=== PATIENT | female | born 1965 | race Caucasian/White ===

== ENCOUNTER 2023-02-13 10:04 | Outpatient (RCR) | payer OTHER, SELFPAY | END 2023-02-27 14:00 | disposition home or self-care (01) | LOC: PT 10:04 | DX: S83.241A Other tear of medial meniscus, current injury, right knee, initial encounter (principal) | CPT/HCPCS: 97161 ==

== ENCOUNTER 2023-06-09 09:51 | Outpatient (RCR) | payer OTHER, SELFPAY | END 2023-07-10 13:19 | disposition home or self-care (01) | LOC: PT 09:51 | DX: S83.241D Other tear of medial meniscus, current injury, right knee, subsequent encounter (principal); R26.89 Other abnormalities of gait and mobility; R26.9 Unspecified abnormalities of gait and mobility | CPT/HCPCS: 97110; 97161 ==

== ENCOUNTER 2023-08-26 14:32 | Outpatient (OUT) | payer OTHER, SELFPAY ==
--- NOTE | 2023-08-26 | XR_ITS ---
The [address] [address] Patient Name: PRAFUL JUNIOR MRN: [id number] date: 1965 Sex: F Assigned Patient Location: [facility] Current Patient Location: Accession/Order Number: [id number] Exam Date: 08/26/2023 14:45 Report Date: 08/27/2023 23:57 At the request of: MARGARET CARDENAS Procedure: XR foot RT min 3V EXAM: XR foot RT min 3V HISTORY: The patient is a 58-year-old female with RIGHT FOOT PAIN COMPARISON: None. FINDINGS: 2 screws are seen across a healed osteotomy of the first metatarsal and 2 microscrews are seen across a healed osteotomy of the fifth metatarsal. There is no radiographic evidence of hardware loosening or failure. There is evidence of a nondisplaced fracture of the proximal metaphysis of the fourth toe proximal phalanx. I cannot determine from these views if this is an acute or ununited fracture. There is also a ununited transverse fracture of the distal tuft of the fourth toe distal phalanx. No other acute or ununited fractures are seen within the right foot. There is moderate narrowing of the first metatarsophalangeal joint. The widths of the other joints are maintained. XR/XR foot RT min 3V IMPRESSION: Fractures of the proximal and distal phalanges of the fourth toe. Electronically authenticated by: LUISA ADAME Date: 08/27/2023 23:57
== END 2023-08-26 14:33 | disposition home or self-care (01) ==
LOC: RAD 14:33
PROVIDERS: Visit Provider Podiatrist Foot & Ankle Surgery
DX: S92.911A Unspecified fracture of right toe(s), initial encounter for closed fracture (principal); M79.671 Pain in right foot
CPT/HCPCS: 73630

== ENCOUNTER 2023-10-07 13:22 | Outpatient (OUT) | payer OTHER, SELFPAY ==
--- NOTE | 2023-10-07 | XR_ITS ---
The [address] [address] Patient Name: PRAFUL JUNIOR MRN: [id number] date: 1965 Sex: F Assigned Patient Location: [facility] Current Patient Location: [facility] Accession/Order Number: [id number] Exam Date: 10/07/2023 13:52 Report Date: 10/07/2023 15:00 At the request of: MARGARET CARDENAS Procedure: XR foot RT min 3V PROCEDURE: XR foot RT min 3V COMPARISON: 08/26/2023 HISTORY: RIGHT FOOT PAIN FINDINGS: BONES:No acute fracture or dislocation. Stable osteotomy and screw placement of the first and fifth metatarsals. Shave osteotomy medial head of the first metatarsal. SOFT TISSUES:Focal radiopacity between the third and fourth digits possibly outside the patient EFFUSION:None visible. OTHER: Negative. XR/XR foot RT min 3V IMPRESSION: Stable postsurgical changes Electronically authenticated by: JALEEL EAST Date: 10/07/2023 15:00
--- OUTSIDE RECORDS SUMMARY | 2023-10-07 13:26 | XMS_ITS | CCD ---
Author Name Unknown Address [address] [place] [address] Organization [facility] Care Team Providers Care [employer] Name Role Phone Marianna Escamilla Unavailable Unavailable Evan Lopez Unavailable Unavailable Unavailable Unavailable Unavailable Eugene Osuna Unavailable Unavailable Evan Lopez Unavailable Unavailable Adriana Desai Unavailable Unavailable Evan Lopez Unavailable Unavailable Unavailable Unavailable Saroj Burnett MD Unavailable Unavailable Marianna Wood Unavailable Unavailab Evan Haji Unavailable Unavailable Unavailable Unavailable Unavailable Hebert Carolina Unavailable Kevan Hyman Unavailable [phone] [facility] Primary Care Provider [phone] DO Bridgette Pena Attending Provider [phone] DO Cristian Prasad Referring Provider Corey Moore Unavailable [facility] Primary Care Provider [phone] DO Bridgette Pena Attending Provider DO Cristian Prasad Referring Provider MD Flako Crane Attending Provider [facility] Primary Care Provider Dr. Eugene Osuna Attending Unav ailable Dr. Eugene Osuna Attending Unav ailable Self, Referral Attending Provider Unavailable MD Flako Crane Referring Provider [phone] DO Cristian Prasad Attending Provider [phone] MD Kevan Hyman Attending Provider Eugene Nicholson II Unavailable DO Roderick Trejo Attending Provider [phone] Ashly RUVALCABA, Anne Greene Attending Unavailable DO Cristian Prasad Attending Provider MD Kevan Hyman Attending Provider DO Roderick Trejo Attending Provider [phone] [facility] Primary Care Provider [phone] DO Brando Núñez Attending Provider [phone] ELADIO REESE Consulting Unavailable MARCEL ., DANE Admitting Unavailable MARCEL ., DANE Attending Unavailable MISC, DR ZAMUDIO Primary Care Unavailable SHAYY, ZAC Consulting Unavailable DERROW, SIMEON Consulting Unavailable MARCEL ., DANE Consulting Unavailable MISC, DR ZAMUDIO Admitting Unavailable MISC, DR ZAMUDIO Primary Care Unavailable MISC, DR ZAMUDIO Attending Unavailable MISC, DR ZAMUDIO Admitting Unavailable MISC, DR ZAMUDIO Attending Unavailable [facility] Primary Care Unavaila ble MARKER ., DR ESTEBAN Admitting Unavailable MARKER ., DR ESTEBAN Consulting Unavailable MARKER ., DR ESTEBAN Attending Unavailable [facility] Primary Care Unavaila ble YEH, BRIDGETTE Consulting Unavailable MARKER ., DR ESTEBAN Admitting Unavailable MARKER ., DR ESTEBAN Attending Unavailable MISC, DR ZAMUDIO Primary Care Unavailable RAHUL .JENNIFER Consulting Unavailable DO Terrence Doe Emergency Provider EUGENE Ferris Referring Unavaila ble OSUNA, EUGENE HARDWICK Attending Unavaila ble OSUNA, EUGENE HARDWICK Attending Unavaila ble OSUNAEUGENE ALTAMIRANO Referring Unavaila ble OSUNA, EUGENE HARDWICK Referring Unavaila ble OSUNA, EUGENE HARDWICK Attending Unavaila ble Bharat Carreon Unavailable SYLWIAALVINA CORDERO Admitting Unavailable SYLWIA, ALVINA E Attending Unavailable SYLWIA, ALVINA E Attending Unavailable SYLWIA, ALVINA E Attending Unavailable COOK, Servando P Referring Unavailable SYLWIA, ALVINA E Attending Unavailable SYLWIA, ALVINA E Attending Unavailable COOK, Servando P Referring Unavailable COOK, Srevando P Attending Unavailable COOK, Servando P Admitting Unavailable KILBANE, RINA Attending Unavailable Unavailable Primary Care Provider Unavailabl e KILBANE, RINA Referring Unavailable [facility] Primary Care Provider MD Flako Crane Attending Provider [phone] [facility], Services Primary Care Unavaila ble Wilton, Brando Admitting Unavailable Visci, Brando Attending Unavailable Visci, Brando Admitting Unavailable Visci, Brando Attending Unavailable [facility], Services Primary Care Unavaila ble Terrence Doe Admitting Unavailable Terrence Doe Attending Unavailable [facility], [facility] Primary Care Unavaila ble [facility], Services Primary Care Unavaila Flako Mcclain Admitting Unavailable Flako Crane Attending Unavailable Cristian Prasad Admitting Unavailable Cristian Prasad Attending Unavailable YenniKevan angel Admitting Unavaila ble Kevan Hyman Attending Unavaila ble [facility], Services Primary Care Unavaila ble Roderick Trejo Admitting Unavailab Roderick Johnson Attending Unavailab le Pcp, Not In System Primary Care Provider Unavail able Allergies Allergy Classification Reported Allergen(s) Allergy Type Date of Onset Reaction(s) Facility Acetaminophen / HYDROcodone (1 source) Acetaminophen / HYDROcodone; Translations: [Vicodin TABS] Drug Allergy -[facility] [place] [address] DO Work Phone: Antihistamines (1 source) hydrOXYzine; Translations: [Vistaril] Drug Allergy [place] [address] DO Work Phone: Cephalosporins (antibiotic) (1 source) Cephalexin; Translations: [Keflex] Drug Allergy [place] [address] DO Work Phone: hydroCHLOROthiazide (1 source) hydroCHLOROthiazi de; Translations: [hydroCHLOROthiaz mandie TABS] Drug Allergy [facility] 130 DO Work Phone: Opioid Agonists (1 source) Morphine; Translations: [morphine] Drug Allergy [place] [address] DO Work Phone: Orphenadrine (1 source) Orphenadrine; Translations: [Norflex] Drug Allergy [place] [address] DO Work Phone: Penicillins (antibiotic) (1 source) Penicillins; Translations: [Penicillins] Drug Allergy [facility] 130 DO Work Phone: Phenazopyridine (1 source) Phenazopyridine; Translations: [Pyridium] Drug Allergy -Orthopaedic [facility] 130 DO Work Phone: Sulfonamides (antibiotic) (1 source) Sulfamethoxazole; Translations: [sulfa] [facility] 130 DO Work Phone: (20 sources) Acetaminophen / HYDROcodone; Translations: [Vicodin TABS] Drug Allergy 017 Unknown, Nausea, Vomiting -Orthopaedic [facility] Work Phone: (20 sources) Cephalexin; Translations: [Keflex] Drug Allergy [facility] Repository (20 sources) hydroCHLOROthiazi de; Translations: [hydroCHLOROthiaz mandie TABS] Drug Allergy 016 Hives, Rash [facility] Work Phone: (20 sources) hydrOXYzine; Translations: [Vistaril] Drug Allergy [facility] Repository (20 sources) Morphine; Translations: [morphine] Drug Allergy 016 [facility] (20 sources) Orphenadrine; Translations: [Norflex] Drug Allergy Unknown [facility] Repository (20 sources) Penicillins; Translations: [Penicillins] Allergy to drug (finding) [facility] (20 sources) Phenazopyridine; Translations: [Pyridium] Drug Allergy [facility] (20 sources) Sulfonamides (Antibiotic); Translations: [sulfa] Allergy to drug (finding) [facility] Work Phone: (20 sources) Acetaminophen / HYDROcodone; Translations: [Vicodin] Drug Allergy 016 Unknown [facility] Repository (20 sources) hydrOXYzine Drug Allergy Unknown, [facility] (20 sources) lurasidone; Translations: [LURASIDONE] Drug Allergy Seizure, muscle cramps [facility] (20 sources) Penicillin; Translations: [penicillin] Drug Allergy Rash [facility] Repository (20 sources) Phenazopyridine; Translations: [PHENAZOPYRIDINE] Drug Allergy [facility] (20 sources) Sulfonamides (Antibiotic); Translations: [sulfa drugs] Propensity to adverse reactions Unknown [facility] Repository (14 sources) Cephalexin; Translations: [cephalexin] Drug Allergy [facility] (14 sources) hydroCHLOROthiazi de; Translations: [hydroCHLOROthiaz mandie] Drug Allergy [facility] (9 sources) HYDROcodone; Translations: [hydrocodone] Drug Allergy Vomiting [facility] (13 sources) Orphenadrine; Translations: [orphenadrine] Drug Allergy [facility] (13 sources) Sulfonamides (Antibiotic); Translations: [SULFA (SULFONAMIDE ANTIBIOTICS)] Allergy to substance [facility] (3 sources) lurasidone; Translations: [Latuda] Drug Allergy [facility] Repository (1 source) Phenoperidine; Translations: [phenoperidine] Drug Allergy [facility] Repository (2 sources) pyridimal; Translations: [pyridimal] Propensity to adverse reactions to drug (disorder) Headache [facility] Repository (1 source) Penicillins Drug allergy (disorder) [facility] Repository (1 source) Sulfonamides (Antibiotic) Drug allergy (disorder) [facility] Repository (15 sources) dupilumab Drug Allergy rash, Other (See Comments) [facility] (12 sources) Substance with sulfonamide structure and antibacterial mechanism of action (substance) Drug allergy Unknown [facility] Other (2 sources) Acetaminophen / HYDROcodone; Translations: [HYDROCODONE-ACET AMINOPHEN] Drug Allergy [facility] 3 Repository (3 sources) hydrOXYzine; Translations: [HYDROXYZINE PAMOATE] Drug Allergy Hives, Rash [facility] 3 Repository (3 sources) HYDROCODONE-GUAIF ENESIN; Translations: [HYDROCODONE-GUAI FENESIN] Propensity to adverse reactions to drug (disorder) Headache, Nausea/vomiti ng [facility] 3 Repository (1 source) Penicillins Drug Allergy [facility] Work Phone: (1 source) hydrOXYzine Drug Allergy [facility] Repository (1 source) lurasidone Drug Allergy [facility] Repository (1 source) Penicillins Drug allergy (disorder) [facility] Repository (1 source) Phenazopyridine Drug Allergy 023 [facility] Repository (1 source) hydrOXYzine Drug Allergy 017 [facility] (1 source) Orphenadrine Drug Allergy 021 [facility] (1 source) penicillAMINE Drug Allergy 023 [facility] (1 source) Phenoperidine Drug Allergy 016 [facility] Medications Current Medications Medication Drug Class(es) Dates Sig (Normalized) Sig (Original) acetaminophen 500 mg oral tablet (20 sources) Start: 06-08-2023 acetaminophen (Tylenol) 500 mg tablet Take 2 tablets (1,000 mg) by mouth if needed. EVERY 6 TO 8 HOURS 0 06/08/2023 Active Start: 09-10-2022 take 2 tablets by mo ut every eight hours as needed Acetaminophen 500 MG 2 tablet as needed Orally every 8 hrs for 30 days Aug, Active Start: 03-01-2021 take 650 mg by mouth every four hours Acetaminophen Active 650 MG PO Q4H 0 February 28, 2021 11:00pm acetaminophen 325 mg / oxyCODONE hydrochloride 5 mg oral tablet (20 sources) Opioid Agonist Start: 12-31-2022 take 1-2 tablets by mouth every six hours as needed for pain Oxycodone-Acetaminophen (Percocet) 5-325 mg tablet Active 1 TAB PO Q6H 12 3 December 31, 2022 May take 1-2 tabs q 6 hours prn pain Start: 07-05-2020 End: 03-01-2021 take 1 tablet by mouth every six hours Oxycodone-Acetaminophen (Percocet) 5-325 mg tablet Discontinued 1 TAB PO Q6H 4 July 05, 2020 March 01, 2021 1:00pm Start: 06-15-2019 End: 03-08-2020 take 1 tablet by mouth every six hours Oxycodone-Acetaminophen (Percocet) 5-325 mg tablet Discontinued 1 TAB PO Q6H 10 September 24, 2019 March 08, 2020 1:58pm Start: 03-10-2019 End: 05-15-2019 take 1 tablet by mouth every four to six hours Oxycodone-Acetaminophen (Percocet) 5-325 mg tablet Discontinued 1 TAB PO EVERY 4-6 HOURS 6 March 24, 2019 May 15, 2019 1:46pm Start: 08-26-2017 End: 03-10-2019 take 1 tablet by mouth once Oxycodone-Acetaminophen (Percocet) 5-325 mg tablet Discontinued 1 TAB PO Once August 26, 2017 12:00am March 10, 2019 1:56pm [id number] 200 actuat albuterol 0.09 mg/actuat metered dose inhaler (20 sources) beta2-Adrenergic Agonist Start: 12-17-2022 take 1 puff(s) by inhalation every four hours Albuterol Sulfate (Ventolin Hfa) 90 mcg/actuation HFA aerosol inhaler Active 2 PUFF INHALATION Q4H December 16, 2022 11:00pm Start: 06-08-2020 End: 12-17-2022 take 2 puff(s) by mouth every four hours as needed Albuterol Sulfate Discontinued 2 PUFF INHALATION Q4H June 07, 2020 11:00pm December 17, 2022 9:56am TAKE 2 PUFFS BY MOUTH EVERY 4 HOURS NEEDED Start: 07-20-2018 take 1-2 puff(s) by inhalation every four to six hours as needed Ventolin HFA 108 (90 Base) MCG/ACT Inhalation Aerosol Solution INHALE 1 TO 2 PUFFS EVERY 4 TO 6 HOURS NEEDED. Quantity: 1 Refills: 11 Ordered: 20-Jul-2018 DO Start : 20-Jul-2018 Active Start: 07-20-2018 take 1-2 puff(s) by inhalation every four to six hours as needed Ventolin HFA 108 (90 Base) MCG/ACT Inhalation Aerosol Solution INHALE 1 TO 2 PUFFS EVERY 4 TO 6 HOURS NEEDED. Quantity: 1 Refills: 11 Start : 20-Jul-2018 Active 18 GM Inhaler Start: 07-20-2018 take 1-2 puff(s) by inhalation every four to six hours as needed Ventolin HFA 108 (90 Base) MCG/ACT Inhalation Aerosol Solution INHALE 1 TO 2 PUFFS EVERY 4 TO 6 HOURS NEEDED. Quantity: 1 Refills: 11 Start : 20-Jul-2018 Active 18 GM Inhaler Start: 08-26-2017 End: 06-08-2020 Albuterol Sulfate Discontinu ed 2 INH INHALATION Q4H August 26, 2017 12:00am June 08, 2020 11:56am Start: 08-26-2017 End: 06-08-2020 Albuterol Sulfate Discontinu ed 2 INH INHALATION Q4H August 26, 2017 1:00am June 08, 2020 12:56pm take 1 puff(s) by in halation every four hours as needed Ventolin HFA 108 (90 Base) MCG/ACT 1 puff as needed Inhalation every 4 hrs as needed Active take 2 puff(s) by in halation every four hours as needed for wheezing albuterol (PROVENTIL HFA;VENTOLIN HFA) 90 mcg/actuation inhaler Inhale 2 puffs every 4 (four) hours as needed for wheezing or shortness of breath. 0 Active take 2 puff(s) by in halation every four hours Ventolin HFA 90 mcg/actuation inhaler Inhale 2 puffs every 4 hours if needed. 0 Active take 2 puff(s) by in halation every four hours as needed Albuterol Sulfate HFA 108 (90 Base) MCG/ACT INHALE 2 PUFFS NEEDED EVERY 4 HOURS Inhalation Active take 2 puff(s) by in halation every four hours as needed Albuterol Sulfate HFA 108 (90 Base) MCG/ACT INHALE 2 PUFFS NEEDED EVERY 4 HOURS Inhalation Active alendronic acid 70 mg oral tablet (20 sources) Bisphosphonate Start: 07-20-2018 take 1 tablet by mouth every week alendronate (FOSAMAX) 70 mg tablet Take 1 tablet (70 mg total) by mouth once a week. 3 08/01/2018 Active Start: 07-20-2018 alendronate (F osamax) 70 mg tablet Take 1 tablet (70 mg) by mouth every 7 days. 0 07/20/2018 Active aluminum hydroxide 50.8 mg/ml / magnesium carbonate 47.5 mg/ml oral suspension (7 sources) Start: 06-05-2023 take 10 mL by mouth once daily at bedtime Heartburn Relief 254-237.5 mg/5 mL suspension Take 10 mL by mouth once daily at bedtime. 0 06/05/2023 Active Start: 05-04-2023 take 10 mL by mouth at bedtime Gaviscon Extra Strength 254- 237.5 MG/5ML 10 ml Orally at bedtime for 30 days Apr, Active amitriptyline hydrochloride 75 mg oral tablet (20 sources) Tricyclic Antidepressant Start: 03-05-2023 take 1 tablet by mouth once daily at bedtime amitriptyline (ELAVIL) 75 mg tablet TAKE 1 TABLET BY MOUTH EVERY DAY AT BEDTIME FOR 30 DAYS 0 04/28/2023 Active Start: 11-11-2021 End: 08-29-2022 take 50 mg by mouth once daily Amitriptyline Discontin ued 50 MG PO Daily November 11, 2021 12:00am August 29, 2022 8:48am Start: 10-28-2019 End: 03-01-2021 take 50 mg by mouth once daily at bedtime Amitriptyline Discontinued 50 MG PO Daily at bedtime October 28, 2019 12:00am March 01, 2021 1:00pm {1 (ascorbic acid 7540 MG / polyethylene glycol 3350 63594 MG / potassium chloride 1200 MG / sodium ascorbate 41806 MG / sodium chloride 3200 MG Powder for Oral Solution) / 1 (polyethylene glycol 3350 273890 MG / potassium chloride 1000 MG / sodium chloride 2000 MG / sodium sulfate 9000 MG Powder for Oral Solution) } Pack [Plenvu] (4 sources) Osmotic Laxative, Vitamin C Start: 10-28-2021 Plenvu 140 GM dose 1 pouch a t 4pm, dose 2 pouch A & B at 11pm Orally BID for 1 days [id number] Oct, Active atorvastatin 40 mg oral tablet (20 sources) HMG-CoA Reductase Inhibitor Start: 11-08-2020 take 1 tablet by mouth in the morning atorvastatin (LIPITOR) 40 mg tablet Take 1 tablet (40 mg total) by mouth in the morning. 0 06/19/2021 Active Start: 08-26-2017 End: 03-10-2019 take 40 mg by mouth once daily Atorvastatin Discontinu ed 40 MG PO Daily August 26, 2017 12:00am March 10, 2019 1:54pm brexpiprazole 0.5 mg oral tablet (20 sources) Atypical Antipsychotic Start: 06-19-2023 Rexulti 3 mg tablet Take 3 mg by mouth. 0 06/19/2023 Active Start: 12-17-2022 Rexulti 0.5 mg tablet Take 1 tablet (0.5 mg) by mouth. 0 06/19/2023 Active Start: 01-14-2022 take 1 tablet by adriana th once daily Brexpiprazole (Rexulti) 2 mg tablet Active 3 MG PO Daily August 29, 2022 12:00am Start: 07-25-2021 take 1.5 tablets by mouth in the morning REXULTI 2 mg tablet Take 1.5 tablets (3 mg total) by mouth in the morning. 0 07/25/2021 Active take 1 tablet by adriana th every twenty-four hours Rexulti 0.5 MG 1 tablet Orally Once a day 3mg in the am .05 as needed Active Ca-D3-mag cy-kbcj-nun-nancy-bor (Calcium 600-D3 Plus, mag-zinc,) 600 mg calcium- 20 mcg-50 mg tablet (1 source) Start: 07-20-2018 take 1 tablet by mouth once daily Ca-D3-mag sn-vhyx-knx-nancy-bor (Calcium 600-D3 Plus, mag-zinc,) 600 mg calcium- 20 mcg-50 mg tablet Take 1 tablet by mouth once daily. 0 07/20/2018 Active Calcium (8 sources) Phosphate Binder, Calcium Calcium Active calcium citrate 1500 mg / cholecalciferol 200 unt oral tablet (5 sources) Vitamin D Start: 06-19-2023 calcium citrat e-vitamin D3 (Citracal+D) 315 mg-5 mcg (200 unit) tablet Take by mouth. 0 06/19/2023 Active Start: 12-17-2022 take 1 tablet by adriana th twice daily Calcium Citrate-Vitamin D3 (Calcium Citrate + D) 315 mg-5 mcg (200 unit) tablet Active 1 TAB PO Twice daily December 16, 2022 11:00pm Start: 10-21-2021 Calcium Citrat e-Vitamin D 315-200 MG-UNIT Oral Tablet Quantity: 60 Refills: 0 Ordered: 08-Feb-2022 DO Start : 21-Oct-2021 Complete carBAMazepine 200 mg oral tablet (20 sources) Mood Stabilizer Start: 12-17-2022 take 100 mg by mouth twice daily Carbamazepine Active 100 MG PO Twice daily December 16, 2022 11:00pm Start: 11-12-2022 carBAMazepine (TEGretol) 100 mg chewable tablet Chew 1 tablet (100 mg) 2 times a day. 0 11/12/2022 Active take 1 tablet by adriana th every twelve hours carBAMazepine ER 100 MG 1 tablet Orally Twice a day Active carBAMazepine (T EGretol) 100 mg chewable tablet every 12 (twelve) hours. 0 Active cetirizine hydrochloride 10 mg oral tablet (20 sources) Histamine-1 Receptor Antagonist Start: 12-17-2022 take 1 tablet by mouth twice daily Cetirizine (Zyrtec) 10 mg Tablet Active 10 MG PO Twice daily December 16, 2022 11:00pm Start: 03-10-2019 End: 08-29-2022 take 1 capsule by mouth once daily Cetirizine (Zyrtec) 10 mg Capsule Discontinued 10 MG PO Daily May 22, 2019 11:00pm August 29, 2022 8:49am take 1 tablet by adriana every twenty-four hours ZyrTEC Allergy 10 MG 1 tablet Orally Once a day Active chondroitin sulfates 400 mg / glucosamine hydrochloride 500 mg oral capsule (20 sources) Start: 07-20-2018 take 1 capsule by mouth twice daily glucosamine-chondroitin 500-400 mg capsule Take 1 capsule by mouth 2 times a day. 0 07/20/2018 Active Start: 07-20-2018 take 1 capsule by mo [facility] twice daily Glucosamine-Chondroitin 500-400 MG Oral Capsule Take 1 capsule twice daily Quantity: 0 Refills: 0 Ordered: 19-Apr-2020 DO Start : 20-Jul-2018 Active Start: 07-20-2018 take 1 capsule by mo [facility] twice daily Glucosamine-Chondroitin 500-400 MG Oral Capsule Take 1 capsule twice daily Quantity: 0 Refills: 0 Ordered: 19-Apr-2020 DO Start : 20-Jul-2018 Active Start: 07-20-2018 take 1 capsule by mo [facility] once daily Glucosamine-Chondroitin 500-400 MG Oral Capsule take 1 cap daily Refills: 0 Start : 20-Jul-2018 Active clindamycin 300 mg oral capsule (19 sources) Lincosamide Antibacterial Start: 12-31-2022 take 300 mg by mouth every six hours Clindamycin Hcl Active 300 MG PO Q6H 28 December 30, 2022 11:00pm Start: 12-31-2022 End: 12-31-2022 take 150 mg by mouth every six hours Clindamycin Hcl Discontinued 150 MG PO Every 6 hours December 30, 2022 11:00pm December 31, 2022 8:54am Start: 10-29-2020 take 2 capsules by [facility] every hour Clindamycin HCl - 300 MG Oral Capsule TAKE 2 CAPSULES 1 HOUR PRIOR TO DENTAL APPOINTMENT. Quantity: 2 Refills: 0 Ordered: 29-May-2021 Eugene Osuna MD Start : 29-May-2021 Active Start: 05-15-2019 End: 05-23-2019 take 150 mg by mouth every eight hours Clindamycin Hcl Discontinued 150 MG PO Q8H 03 04May 14, 2019 11:00pm May 23, 2019 10:49am clobetasol propionate 0.5 mg/ml topical cream (9 sources) Corticosteroid Start: 04-21-2023 clobetasol (Te movate) 0.05 % cream Apply 1 Application topically if needed. APPLY TO AFFECTED AREAS ON ARMS TWICE DAILY FOR 3 WEEKS. TAKE OFF 1 WEEK THEN REPEAT NEEDED FOR FLARES. 0 04/21/2023 Active Start: 05-15-2019 End: 05-23-2019 Clobetasol Discontinued 2018 11:00pm May 23, 2019 10:52am diclofenac sodium 0.01 mg/mg topical gel (20 sources) Nonsteroidal Anti-inflammatory Drug Start: 06-05-2023 Voltareross Arthriti s Pain 1 % gel gel Apply 1 Application topically 3 times a day. 0 06/05/2023 Active Start: 03-10-2019 End: 06-08-2020 take 75 mg by mouth twice daily Diclofenac Potassium Discontinued 75 MG PO Twice daily March 09, 2019 11:00pm June 08, 2020 11:59am Start: 11-19-2017 take 1 tablet by adriana in the morning, then take 1 tablet by mouth at bedtime diclofenac (VOLTAREN) 75 mg EC tablet Take 1 tablet (75 mg total) by mouth in the morning and 1 tablet (75 mg total) before bedtime. 60 tablet 3 11/06/2022 Active Diclofenac Activ e dicyclomine hydrochloride 10 mg oral capsule (20 sources) Anticholinergic Start: 10-25-2021 Dicyclomine HC l - 10 MG Oral Capsule Quantity: 90 Refills: 0 Ordered: 06-Feb-2022 DO Start : 25-Oct-2021 Complete Start: 10-20-2021 take 1 capsule by mo [facility] every eight hours Dicyclomine HCl 10 MG 1 CAPSULE Orally Three times a day for 90 days Oct, Active take 0.5 tablet by [facility] three times daily dicyclomine (BENTYL) 20 mg tablet Take 0.5 tablets (10 mg total) by mouth 3 (three) times a day. 0 Active diphenhydrAMINE hydrochloride 25 mg oral tablet (20 sources) Histamine-1 Receptor Antagonist Start: 05-20-2023 diphenhydrAMINE (Sominex) 25 mg tablet Take 1-2 tablets (25-50 mg) by mouth as needed at bedtime for itching. 0 05/20/2023 Active Start: 12-17-2022 Diphenhydramin e Hcl (Banophen) 25 mg capsule Active 25 - 50 MG PO Daily at bedtime December 16, 2022 11:00pm take 1 capsule by mo [facility] every six hours as needed diphenhydrAMINE (BENADRYL) 25 mg capsule Take 1 capsule (25 mg total) by mouth every 6 (six) hours as needed for itching. 0 Active Banophen Active docusate sodium 100 mg oral capsule (1 source) Start: 05-29-2023 take 1 capsule by mouth twice daily as needed for constipation docusate sodium (Colace) 100 mg capsule Take 1 capsule (100 mg) by mouth 2 times a day as needed for constipation. 0 05/29/2023 Active 0.5 ml dulaglutide 1.5 mg/ml auto-injector (19 sources) GLP-1 Receptor Agonist Start: 03-23-2023 inject 0.75 mg by subcutaneous injection every week Trulicity 0.75 mg/0.5 mL pen injector Inject 0.75 mg under the skin 1 (one) time per week. 0 03/23/2023 Active Trulicity 3 MG/0 .5ML as directed Subcutaneous ONCE A WEEK 4.5 mg Active Trulicity 3 MG/0 .5ML as directed Subcutaneous ONCE A WEEK Active Trulicity Active dulaglutide 4.5 mg/0.5 mL pen injector (1 source) Start: 12-31-2022 inject 4.5 mg by subcutaneous injection every week dulaglutide 4.5 mg/0.5 mL pen injector Inject 4.5 mg under the skin once a week. 0 12/31/2022 Active 2 ml dupilumab 150 mg/ml auto-injector (5 sources) Interleukin-4 Receptor alpha Antagonist Start: 01-09-2023 Dupixent Pen 300 mg/2 mL injection Inject under the skin. 0 04/06/2023 Active Dupixent 300 MG/ 2ML as directed Subcutaneous Active ergocalciferol 1.25 mg oral capsule (2 sources) Provitamin D2 Compound Start: 06-19-2023 Vitamin D2 1,250 mcg (50,000 unit) capsule Take 1 capsule (50,000 Units) by mouth. 0 06/19/2023 Active Start: 09-27-2021 take 1 capsule by mouth once V itamin D (Ergocalciferol) 1.25 MG (46691 UT) Oral Capsule TAKE 1 CAPSULE A DAY EVERY SUN {Q1W1} Quantity: 4 Refills: 0 Ordered: 03-Feb-2022 DO Start : 27-Sep-2021 Complete estradiol 0.1 mg/ml vaginal cream (1 source) Estrogen Start: 11-27-2022 estradiol (Est race) 0.01 % (0.1 mg/gram) vaginal cream Insert 0.25 Applicatorfuls (1 g) into the vagina if needed. INSERT 1 GM VAGINALLY 2 TO 3 TIMES PER WEEK AT BEDTIME FOR 90 DAYS 0 11/27/2022 Active etodolac 200 mg oral capsule (3 sources) Nonsteroidal Anti-inflammatory Drug Start: 10-03-2023 take 1 capsule by mouth in the morning, then take 1 capsule by mouth at bedtime etodolac (LODINE) 200 mg capsule Take 1 capsule (200 mg total) by mouth in the morning and 1 capsule (200 mg total) before bedtime. 60 capsule 3 10/03/2023 Active Start: 06-19-2023 End: 09-30-2023 take 1 capsule by mouth in the morning, then take 1 capsule by mouth at bedtime etodolac (LODINE) 200 mg capsule Take 1 capsule (200 mg total) by mouth in the morning and 1 capsule (200 mg total) before bedtime. 60 capsule 1 08/05/2023 09/30/2023 Discontinued (Reorder) ferrous gluconate (3 sources) take 1 tablet by adriana th once daily ferrous gluconate 236 mg (27 mg iron) tablet Take 65 mg by mouth once daily. 0 Active Iron TABS TAKE 6 5MG DAILY DIRECTED Refills: 0 Active flaxseed oiL oil (1 source) take 1000 mg by mouth once daily flaxseed oiL oil Take 1,000 mg by mouth once daily. 0 Active fluticasone propionate 0.05 mg/actuat metered dose nasal spray (10 sources) Corticosteroid Start: 04-22-2023 take 1 spray(s) nasal route once daily in the morning fluticasone (Flonase) 50 mcg/actuation nasal spray Administer 1 spray into each nostril once daily in the morning. 0 04/22/2023 Active Start: 10-13-2022 take 1 spray(s) nasa l route in the morning fluticasone propionate (FLONASE) 50 mcg/actuation nasal spray Indications: Dysfunction of both eustachian tubes Administer 1 spray into each nostril in the morning. 16 g 12 10/13/2022 Active Start: 03-10-2019 End: 03-01-2021 Fluticasone Propionate (Flon ase Allergy Relief) 50 mcg/actuation [place],Suspension Discontinued 1 SPRAY INTRANASAL Twice daily March 09, 2019 11:00pm March 01, 2021 1:00pm folic acid 1 mg oral tablet (20 sources) Start: 11-11-2021 take 1 mg by mouth three times daily Folic Acid Active 1 MG PO Three times daily November 11, 2021 12:00am Start: 11-11-2021 take 1 mg by mouth once daily Folic Acid Active 1 MG PO Daily November 11, 2021 12:00am Start: 03-02-2019 End: 03-01-2021 take 1 mg by mouth three times daily Folic Acid Discontinued 1 MG PO Three times daily March 09, 2019 11:00pm March 01, 2021 1:00pm 120 actuat formoterol fumarate 0.005 mg/actuat / mometasone furoate 0.2 mg/actuat metered dose inhaler (20 sources) Corticosteroid, beta2-Adrenergic Agonist Start: 06-08-2020 take 2 puff(s) by mouth twice daily Mometasone-Formoterol (Dulera) 200-5 mcg/actuation HFA aerosol inhaler Active 2 PUFF INHALATION Twice daily June 07, 2020 11:00pm TAKE 2 PUFFS BY MOUTH TWICE A DAY Start: 10-07-2019 End: 06-08-2020 take 1 puff(s) by inhalation twice daily Mometasone-Formoterol (Dulera) 200-5 mcg/actuation Hfa Aerosol Inhaler Discontinued 2 PUFF INHALATION Twice daily October 07, 2019 12:00am June 08, 2020 12:01pm Start: 07-20-2018 take 2 puff(s) by in halation twice daily Dulera 200-5 mcg/actuation inhaler Inhale 2 puffs 2 times a day. 0 07/20/2018 Active Start: 07-20-2018 take 2 puff(s) by in halation twice daily Dulera 200-5 MCG/ACT Inhalation Aerosol INHALE 2 PUFFS TWICE DAILY. Refills: 0 Start : 20-Jul-2018 Active 8.8 GM Inhaler Start: 08-26-2017 End: 10-07-2019 Mometasone-Formoterol Discon tinued 2 INH INHALATION Twice daily August 26, 2017 12:00am October 07, 2019 7:50pm take 2 puff(s) by in halation twice daily Dulera 200-5 MCG/ACT 2 puffs Inhalation Twice a day Active take 2 puff(s) by in halation in the morning mometasone-formoterol (DULERA 200) 200-5 mcg/actuation inhaler Inhale 2 puffs in the morning and 2 puffs before bedtime. 0 Active take 2 puff(s) by in halation twice daily Dulera 200-5 MCG/ACT 2 puffs Inhalation Twice a day Active Glucosamine Chond Complex/MS M - (8 sources) take 500 mg by mouth once daily Glucosamine Chond Complex/MSM - as directed Orally daily 500 mg Active hydrocortisone 25 mg/ml topical cream (2 sources) Corticosteroid Start: 06-19-2023 hydrocortisone (Anusol-HC) 2.5 % rectal cream Insert 1 Application into the rectum 2 times a day. 0 06/19/2023 Active Start: 10-01-2021 Hydrocortisone 1 % External Cream Quantity: 28 Refills: 0 Ordered: 01-Oct-2021 DO Start : 01-Oct-2021 Complete ibuprofen 800 mg oral tablet (6 sources) Nonsteroidal Anti-inflammatory Drug Start: 08-29-2022 take 800 mg by mouth every six hours Ibuprofen Active 800 MG PO Q6H 30 August 29, 2022 12:00am ipratropium bromide 0.042 mg/actuat metered dose nasal spray (20 sources) Anticholinergic Start: 08-29-2022 Ipratropium [place] Active 2 SPRAY INTRANASAL Twice daily August 29, 2022 12:00am Start: 06-08-2020 End: 03-01-2021 take 2 spray(s) nasal route twice daily Ipratropium [place] Discontinued 2 SPRAY INTRANASAL Twice daily June 07, 2020 11:00pm March 01, 2021 1:00pm USE 2 SPRAYS IN EACH NOSTRIL TWICE A DAY Start: 05-22-2020 ipratropium (A TROVENT) 42 mcg (0.06 %) nasal spray 2 sprays in the morning and 2 sprays before bedtime. 0 05/22/2020 Active Start: 03-10-2019 End: 06-08-2020 Ipratropium [place] Disconti nued 2.5 ML INHALATION every 6 to 8 hours March 09, 2019 11:00pm June 08, 2020 12:09pm take 2 spray(s) nasa l route three times daily Ipratropium [place] 0.06 % 2 sprays in each nostril Nasally Three times a day Active ipratropium (Atr ovent) 42 mcg (0.06 %) nasal spray Administer into each nostril. 0 Active take 2 spray(s) nasa l route three times daily Ipratropium [place] 0.06 % 2 sprays in each nostril Nasally Three times a day Active Ipratropium [place] mandie 0.06 % Nasal Solution USE DIRECTED Quantity: 0 Refills: 0 Ordered: 19-Apr-2020 DO Active Ipratropium Brom mandie 0.06 % Nasal Solution USE DIRECTED Quantity: 0 Refills: 0 Ordered: 19-Apr-2020 DO Active Ipratropium Brom mandie 0.06 % Nasal Solution USE DIRECTED Refills: 0 Active ivermectin 3 mg oral tablet (12 sources) Antiparasitic, Pediculicide Start: 02-07-2022 ivermectin (Stromectol) 3 mg tablet Take 1 tablet (3 mg) by mouth. 0 02/07/2022 Active levETIRAcetam 250 mg oral tablet (20 sources) Start: 02-11-2022 End: 02-01-2024 take 1 tablet by mouth twice daily levETIRAcetam (Keppra) 250 mg tablet Indications: Seizure (CMS/HCC) Take 1 tablet (250 mg) by mouth 2 times a day. 180 tablet 1 08/05/2023 02/01/2024 Active take 1 tablet by adriana th every twelve hours levETIRAcetam 250 MG 1 tablet Orally dain ry 12 hrs Active levoFLOXacin 750 mg oral tablet (2 sources) Quinolone Antimicrobial Start: 01-09-2023 take 750 mg by mouth once daily Levofloxacin Active 750 MG PO Daily 7 January 08, 2023 11:00pm methylphenidate hydrochloride 10 mg oral tablet (20 sources) Central Nervous System Stimulant Start: 10-06-2023 take 1 tablet by mouth in the morning, then take 1-2 tablets by mouth twice daily in the evening Methylphenidate HCl 10 MG 1 tab in am 1-2 tab in pm Orally Twice a day for 30 days Sep, Active Start: 12-17-2022 take 20 mg by mouth once daily at bedtime Methylphenidate Hcl Active 20 MG PO Daily at bedtime December 16, 2022 11:00pm Start: 11-11-2021 take 1 tablet by adriana th in the morning, then take 1-2 tablets by mouth twice daily in the evening Methylphenidate HCl 10 MG 1 tab in am 1-2 tab in pm Orally Twice a day for 30 days Aug, Active Start: 08-22-2021 take 1 tablet by adriana th in the morning as needed, then take 1-2 tablets by mouth twice daily as needed Methylphenidate HCl 10 MG 1 tablet on empty stomach in morning and 1-2 tablets in afternoon as needed Orally Twice a day for 30 days Aug, Active Start: 06-18-2021 take 1 tablet by adriana th in the morning as needed, then take 1-2 tablets by mouth twice daily as needed Methylphenidate HCl 10 MG 1 tablet on empty stomach in morning and 1-2 tablets in afternoon as needed Orally Twice a day for 30 days Nov, Active Ritalin 10 MG Or al Tablet Quantity: 0 Refills: 0 Ordered: 24-Jun-2021 DO Active metroNIDAZOLE 500 mg oral tablet (4 sources) Nitroimidazole Antimicrobial Start: 12-31-2022 take 500 mg by mouth twice daily Metronidazole Active 500 MG PO Twice daily 27 03January 08, 2023 11:00pm Mometasone-Formoter ol (Dulera) 200-5 mcg/actuation HFA aerosol inhaler (6 sources) Start: 06-08-2020 take 2 puff(s) by mouth twice daily Mometasone-Formoter ol (Dulera) 200-5 mcg/actuation HFA aerosol inhaler Active 2 PUFF INHALATION Twice daily June 08, 2020 12:00am TAKE 2 PUFFS BY MOUTH TWICE A DAY Start: 06-08-2020 take 2 puff(s) by mo ut twice daily Mometasone-Formoterol (Dulera) 200-5 mcg/actuation HFA aerosol inhaler Active 2 PUFF INHALATION Twice daily June 07, 2020 11:00pm TAKE 2 PUFFS BY MOUTH TWICE A DAY naproxen 500 mg oral tablet (2 sources) Nonsteroidal Anti-inflammatory Drug Start: 01-09-2023 take 1 tablet by mouth twice daily Naproxen (Naprosyn) 500 mg tablet Active 500 MG PO Twice daily 27 03January 08, 2023 11:00pm omega-3 fatty acids-fish oil 360-1,200 mg capsule (1 source) take 1 capsule by mouth once daily omega-3 fatty acids-fish oil 360-1,200 mg capsule Take 1 capsule (1,200 mg) by mouth once daily. 0 Active omeprazole 40 mg delayed release oral capsule (16 sources) Proton Pump Inhibitor Start: 05-04-2023 Omeprazole 40 MG 1 capsule 30 minutes before morning meal and evening meal Orally twice a day for 90 days Apr, Active ondansetron 4 mg disintegrating oral tablet (20 sources) Serotonin-3 Receptor Antagonist Start: 03-05-2023 take 1 tablet by mouth three times daily as needed ondansetron ODT (ZOFRAN ODT) 4 mg disintegrating tablet DISSOLVE 1 TABLET BY MOUTH ON THE TONGUE 3 TIMES A DAY NEEDED 0 03/05/2023 Active Start: 01-09-2023 take 4 mg by mouth once daily Ondansetron Hcl Active 4 MG PO Daily 15 January 08, 2023 11:00pm Start: 10-25-2021 take 1 tablet by adriana th three times daily as needed Zofran ODT 4 MG 1 tablet on the tongue and allow to dissolve Orally THREE TIMES A DAY NEEDED for 30 day(s) PRN Oct, Active Start: 10-25-2021 Ondansetron 4 MG Oral Tablet Disintegrating Quantity: 50 Refills: 0 Ordered: 25-Oct-2021 DO Start : 25-Oct-2021 Complete Start: 10-20-2021 End: 08-29-2022 take 4 mg by mouth three times daily Ondansetron Discontinued 4 MG PO Three times daily 9 October 20, 2021 12:00am August 29, 2022 8:48am oxyCODONE hydrochloride 5 mg oral tablet (20 sources) Opioid Agonist Start: 01-09-2023 take 5 mg by mouth once daily Oxycodone Active 5 MG PO Daily 4 January 09, 2023 Start: 09-10-2022 take 1 tablet by adriana th every eight hours oxyCODONE HCl 5 MG 1 tablet as needed Orally every 8 hrs for 7 days Aug, Active Start: 01-19-2021 End: 03-01-2021 take 5 mg by mouth every four to six hours Oxycodone Discontinued 5 MG PO EVERY 4-6 HOURS 5 January 19, 2021 March 01, 2021 1:00pm Start: 05-14-2020 take 1 tablet by adriana th every six hours as needed for pain oxyCODONE HCl - 5 MG Oral Tablet Take one tablet every 6 hours as needed for pain. Quantity: 24 Refills: 0 Marianna Wood Start : 14-May-2020 Active pantoprazole 40 mg delayed release oral tablet (20 sources) Proton Pump Inhibitor Start: 08-15-2020 take 40 mg by mouth twice daily Pantoprazole Active 40 MG PO Twice daily November 11, 2021 12:00am Start: 08-26-2017 End: 03-10-2019 take 40 mg by mouth once daily Pantoprazole Discontinu ed 40 MG PO Daily August 26, 2017 12:00am March 10, 2019 1:57pm Pantoprazole Sod ium 40 MG Oral Tablet Delayed Release Quantity: 0 Refills: 0 Ordered: 27-Aug-2020 DO Active pilocarpine hydrochloride 7.5 mg oral tablet (20 sources) Cholinergic Receptor Agonist Start: 11-10-2022 pilocarpine (Salagen ) 7.5 mg tablet Take 1 tablet (7.5 mg) by mouth. 0 06/19/2023 Active Start: 11-11-2021 take 7.5 mg by mouth three times daily Pilocarpine Hcl Active 7.5 MG PO Three times daily November 11, 2021 12:00am Start: 11-11-2021 take 5 mg by mouth t hree times daily Pilocarpine Hcl Active 5 MG PO Three times daily November 11, 2021 12:00am Start: 03-08-2020 End: 03-01-2021 take 1 tablet by mouth three times daily Pilocarpine Hcl (Salagen (Pilocarpine)) 5 mg Tablet Discontinued 5 MG PO Three times daily March 07, 2020 11:00pm March 01, 2021 1:00pm Pilocarpine HCl - 5 MG Oral Tablet Quantity: 0 Refills: 0 Ordered: 24-May-2020 DO Active polyethylene glycol 3350 65623 mg powder for oral solution (2 sources) Osmotic Laxative Start: 01-09-2023 Polyethylene Glycol 3350 (Miralax) 17 gram/dose powder Active 4 GM PO Daily 10 04January 09, 2023 2:42pm microencapsulated potassium chloride 20 meq extended release oral tablet (20 sources) Start: 11-11-2021 Potassium Chlo ride (Klor-Con M20) 20 mEq tablet,ER particles/crystals Active 20 MEQ PO Twice daily November 11, 2021 12:00am Start: 11-11-2021 Potassium Chlo ride (Klor-Con M20) 20 mEq tablet,ER particles/crystals Active 20 MEQ PO Daily November 11, 2021 12:00am Start: 10-21-2021 Potassium Chlo ride ER 20 MEQ Oral Tablet Extended Release Quantity: 60 Refills: 0 Ordered: 08-Feb-2022 DO Start : 21-Oct-2021 Complete Start: 02-02-2017 End: 03-01-2021 Potassium Chloride (Klor-Con M20) 20 mEq Tablet,Er Particles/Crystals Discontinued 20 MEQ PO Twice daily March 09, 2019 11:00pm March 01, 2021 1:00pm Start: 02-02-2017 End: 05-15-2019 Potassium Chloride (Klor-Con M20) 20 mEq tablet,ER particles/crystals Discontinued 20 MEQ PO Daily August 26, 2017 12:00am May 15, 2019 1:46pm take 2 tablets by [facility] twice daily at mealtime Klor-Con 20 MEQ 2 tablets with food Orally Twice a day Active POTASSIUM CHLORI DE (KLOR-CON M20 ORAL) Take by mouth 2 (two) times a day. 0 Active pramipexole dihydrochloride 1 mg oral tablet (20 sources) Nonergot Dopamine Agonist Start: 03-05-2021 take 1 mg by mouth twice daily Pramipexole Active 1 MG PO Twice daily March 04, 2021 11:00pm Start: 02-02-2017 End: 03-01-2021 take 1 tablet by mouth twice daily Pramipexole (Mirapex) 1 mg tablet Discontinued 1 MG PO Twice daily August 26, 2017 12:00am March 01, 2021 1:00pm pregabalin 150 mg oral capsule (20 sources) Start: 08-25-2023 take 1 capsule by mouth three times daily pregabalin (LYRICA) 150 mg capsule Indications: Lumbosacral spondylosis without myelopathy , Disorder of sacrum Take 1 capsule (150 mg total) by mouth 3 (three) times a day. 90 capsule 1 08/25/2023 Active Start: 03-05-2021 take 100 mg by mouth three times daily Pregabalin Active 100 MG PO Three times daily March 04, 2021 11:00pm Start: 06-28-2020 End: 03-01-2021 take 1 capsule by mouth three times daily Pregabalin (Lyrica) 50 mg Capsule Discontinued 50 MG PO Three times daily June 27, 2020 11:00pm March 01, 2021 1:00pm Start: 08-26-2017 End: 03-10-2019 take 1 capsule by mouth twice daily Pregabalin (Lyrica) 75 mg capsule Discontinued 75 MG PO Twice daily August 26, 2017 12:00am March 10, 2019 1:57pm take 1 capsule by mo ut every twenty-four hours Pregabalin 100 MG 1 capsule Orally Once a day Active promethazine hydrochloride 25 mg oral tablet (20 sources) Phenothiazine Start: 07-25-2020 take 25 mg by mouth four times daily Promethazine Active 25 MG PO Four times daily August 29, 2022 12:00am Start: 10-07-2019 End: 06-08-2020 Promethazine Discontinued 25 MG IA Q6H October 07, 2019 12:00am June 08, 2020 12:05pm Do not take with other promethazine/phenergan Start: 09-29-2019 End: 03-01-2021 take 1 tablet by mouth every six hours as needed Promethazine Discontinued 25 MG PO Q6H October 07, 2019 12:00am March 01, 2021 1:00pm TAKE 1 TABLET BY MOUTH EVERY 6 HOURS NEEDED Promethazine HCl - 25 MG Oral Tablet Quantity: 0 Refills: 0 Ordered: 24-May-2020 DO Active psyllium 400 mg oral capsule (1 source) Start: 01-09-2023 take 1 capsule by mo uth every twenty-four hours as needed MetamuciL 0.4 gram capsule Take 1 capsule by mouth once daily as needed. 0 01/09/2023 Active Psyllium Husk (Metamucil) 0.4 gram capsule (2 sources) Start: 01-09-2023 Psyllium Husk (Metamucil) 0.4 gram capsule Active 0.4 GM PO Daily January 08, 2023 11:00pm Start: 01-09-2023 Psyllium Husk (Metamucil) 0.4 gram capsule Active 0.4 GM PO Daily January 09, 2023 12:00am QUEtiapine 50 mg oral tablet (20 sources) Atypical Antipsychotic Start: 10-20-2022 take 1-2 tablets by mouth once daily at bedtime QUEtiapine (SEROquel) 50 mg tablet Take 1-2 tablets (50-100 mg) by mouth once daily at bedtime. 0 10/20/2022 Active Start: 08-29-2022 End: 12-17-2022 take 25 mg by mouth twice daily in the morning, then take 50 mg by mouth at bedtime Quetiapine Discontinued 25 - 50 MG PO Twice daily August 29, 2022 12:00am December 17, 2022 10:17am 25mg in am & 50mg @ HS Start: 11-11-2021 End: 08-29-2022 take 50 mg by mouth once daily at bedtime Quetiapine Discontinued 50 MG PO Daily at bedtime November 11, 2021 9:03am August 29, 2022 8:49am Start: 10-21-2021 take 1 tablet by adriana th every twenty-four hours QUEtiapine Fumarate ER 200 MG Oral Tablet Extended Release 24 Hour Quantity: 30 Refills: 0 Ordered: 15-Nov-2021 DO Start : 21-Oct-2021 Complete Start: 05-27-2021 take 1 tablet by adriana th every twenty-four hours QUEtiapine Fumarate ER 300 MG Oral Tablet Extended Release 24 Hour Quantity: 30 Refills: 0 Ordered: 27-May-2021 DO Start : 27-May-2021 Complete Start: 03-05-2021 End: 11-11-2021 take 100 mg by mouth once daily at bedtime Quetiapine Discontinued 100 MG PO Daily at bedtime 14 March 04, 2021 11:00pm November 11, 2021 9:03am Start: 06-08-2020 End: 03-01-2021 take 1 tablet by mouth once daily at bedtime Quetiapine (Seroquel) 100 mg tablet Discontinued 100 MG PO Daily at bedtime June 07, 2020 11:00pm March 01, 2021 1:00pm TAKE ONE TABLET BY MOUTH DAILY AT BEDTIME Start: 05-23-2019 End: 06-08-2020 take 2 tablets by mouth at bedtime Quetiapine (Seroquel) 50 mg Tablet Discontinued 100 MG PO Bedtime May 22, 2019 11:00pm June 08, 2020 12:06pm Start: 05-15-2019 End: 06-07-2019 take 1 tablet by mouth at bedtime Quetiapine (Seroquel) 50 mg Tablet Discontinued 50 MG PO Bedtime May 14, 2019 11:00pm June 07, 2019 8:59am take 1 tablet by adriana th every twenty-four hours SEROquel 200 MG 1 tablet at bedtime Orally Once a day Active sucralfate 1000 mg oral tablet (20 sources) Aluminum Complex Start: 11-26-2021 Sucralfate 1 GM Oral Tablet Quantity: 120 Refills: 0 Ordered: 21-Jan-2022 DO Start : 26-Nov-2021 Active Start: 10-28-2021 take 1 tablet by adriana th every six hours Carafate 1 GM 1 tablet on an empty stomach Orally Four times a day for 30 days Sep, Active Start: 10-28-2021 take 1 tablet by adriana th every six hours Sucralfate 1 GM 1 tablet on an empty stomach Orally QID for 90 days Oct, Active Start: 10-28-2021 take 1 tablet by adriana th four times daily Sucralfate 1 GM 1 tablet on an empty stomach Orally QID for 90 days Oct, Active Start: 09-24-2019 End: 06-08-2020 take 1 tablet by mouth four times daily Sucralfate (Carafate) 1 gram Tablet Discontinued 1 GM PO Four times daily September 24, 2019 12:00am June 08, 2020 12:35pm terazosin 5 mg oral capsule (20 sources) alpha-Adrenergic Marie Start: 12-17-2022 take 5 mg by mouth once daily at bedtime Terazosin Active 5 MG PO Daily at bedtime December 16, 2022 11:00pm Start: 06-08-2020 End: 03-01-2021 take 1 capsule by mouth once daily at bedtime Terazosin Discontinued 5 MG PO Bedtime June 07, 2020 11:00pm March 01, 2021 1:00pm TAKE 1 CAPSULE BY MOUTH EVERY DAY Terazosin HCl - 5 MG Oral Capsule Quantity: 0 Refills: 0 Ordered: 24-May-2020 DO Active tiZANidine 4 mg oral tablet (20 sources) Central alpha-2 Adrenergic Agonist Start: 08-29-2022 take 1 tablet by mouth three times daily as needed tiZANidine (Zanaflex) 4 mg tablet Take 1 tablet (4 mg) by mouth 3 times a day as needed. 0 06/19/2023 Active Start: 05-15-2019 End: 09-30-2019 take 4 mg by mouth three times daily Tizanidine Discontinued 4 MG PO Three times daily May 14, 2019 11:00pm September 30, 2019 12:55pm Start: 08-26-2017 End: 03-10-2019 take 4 mg by mouth three times daily Tizanidine Discontinued 4 MG PO Three times daily August 26, 2017 12:00am March 10, 2019 1:58pm take 1 tablet by adriana th every six hours as needed tiZANidine (ZANAFLEX) 4 mg tablet Take 1 tablet (4 mg total) by mouth every 6 (six) hours as needed for muscle spasms. 0 Active take 1 tablet by adriana th every twelve hours tiZANidine HCl 4 MG 1 tablet as needed Orally two times a day Active tiZANidine HCl - 4 MG Oral Capsule Refills: 0 Active triamcinolone acetonide 1 mg/ml topical cream (18 sources) Corticosteroid Start: 05-27-2023 triamcinolone (Kenalog) 0.1 % cream Apply topically. 0 05/27/2023 Active Start: 08-29-2022 Triamcinolone Acetonide Active 1 APPLIC TOPICAL Twice daily August 29, 2022 12:00am Start: 05-23-2019 End: 10-28-2019 Triamcinolone Acetonide Disc ontinued 1 APPLIC TOPICAL Twice daily May 22, 2019 11:00pm October 28, 2019 1:41pm Triamcinolone Ac etonide 0.1 % External Cream Refills: 0 Active 24 hr divalproex sodium 250 mg extended release oral tablet (10 sources) Mood Stabilizer, Anti-epileptic Agent Start: 08-29-2022 take 1 tablet by mouth once daily in the evening divalproex (Depakote ER) 250 mg 24 hr tablet Take 1 tablet (250 mg) by mouth once daily in the evening. 0 04/02/2023 Active take 1 tablet by adriana th every twenty-four hours Divalproex Sodium 250 MG 1 tablet Orally Once a day Active Vitamin B Complex (8 sources) Vitamin B Comple x Active VITAMIN B COMPLEX ORAL (1 source) take 1 tablet by adriana th once daily VITAMIN B COMPLEX ORAL Take 1 tablet by mouth once daily. 0 Active Vitamin D3 (3 sources) Vitamin D3 Activ e Vitamin D3 125 MCG (5000 UT) (16 sources) take 1 tablet by adriana th once daily Vitamin D3 125 MCG (5000 UT) 1 tablet Orally Once a day Active Vitamin D3 125 M CG (5000 UT) as directed Orally Once a day Active vitamin-B complex split tablet (1 source) take 1 tablet by adriana th once daily vitamin-B complex split tablet Take 1 tablet (2 half tablet) by mouth once daily. 0 Active Completed/Discontinued Medications Medication Drug Class(es) Dates Sig (Normalized) Sig (Original) acetaminophen 325 mg / HYDROcodone bitartrate 5 mg oral tablet (16 sources) Opioid Agonist Start: 11-10-2019 End: 03-08-2020 take 1 tablet by mouth every four to six hours Hydrocodone-Acetami nophen (Larned) 5-325 mg tablet Discontinued 1 TAB PO EVERY 4-6 HOURS 40 7 November 10, 2019 March 08, 2020 1:58pm Start: 07-05-2019 End: 09-24-2019 take 1 tablet by mouth every six hours Hydrocodone-Acetaminophen Discontinued 1 TAB PO Q6H 28 July 05, 2019 September 24, 2019 7:06pm albuterol 0.833 mg/ml / ipratropium bromide 0.167 mg/ml inhalation solution (20 sources) Anticholinergic, beta2-Adrenergic Agonist Start: 11-07-2017 Ipratropium-Albuterol 0.5-2.5 (3) MG/3ML Inhalation Solution USE 1 VIAL PER HAND HELD NEBULIZER EVERY 4 HOURS Quantity: 180 Refills: 0 Ordered: 07-Nov-2017 DO Start : 07-Nov-2017 Active Apple Cider Vinegar (20 sources) Apple Cider Vine gar CAPS Quantity: 0 Refills: 0 Ordered: 24-May-2020 DO Active Apple Cider Vine gar CAPS Refills: 0 Active ascorbic acid 1000 mg oral tablet (20 sources) Vitamin C Start: 06-08-2020 End: 03-01-2021 take 1 tablet by mouth twice daily Ascorbic Acid (Vitamin C) (Vitamin C) 1,000 mg Tablet Discontinued 1000 MG PO Twice daily June 07, 2020 11:00pm March 01, 2021 1:00pm Start: 05-23-2019 End: 06-08-2020 take 1 tablet by mouth twice daily Ascorbic Acid (Vitamin C) (Vitamin C) 500 mg Tablet Discontinued 500 MG PO Twice daily May 22, 2019 11:00pm June 08, 2020 12:33pm Vitamin C Active Vitamin C TABS T ARTURO DAILY DIRECTED Refills: 0 Active Vitamin B Complex TABS (2 sources) Vitamin C Vitamin B Comple x TABS TAKE 1 TABLET DAILY. Refills: 0 Active aspirin 81 mg delayed release oral tablet (20 sources) Platelet Aggregation Inhibitor, Nonsteroidal Anti-inflammatory Drug Start: 03-10-2019 End: 11-11-2021 Aspirin (Lila Low Dose Aspirin) 81 mg Tablet,Delayed Release (Dr/Ec) Discontinued 81 MG PO Daily March 09, 2019 11:00pm November 11, 2021 9:02am take 1 tablet by mouth once vicenta y Aspirin 81 81 MG 1 tablet Orally Once a day Active azelaic acid 150 mg/ml topic al foam (18 sources) Start: 10-31-2021 Finacea 15 % E xternal Foam Quantity: 50 Refills: 0 Ordered: 24-Jan-2022 DO Start : 31-Oct-2021 Complete Start: 10-07-2019 End: 03-01-2021 Azelaic Acid (Finacea) 15 % Gel Discontinued 1 APPLIC TOPICAL Twice daily October 07, 2019 12:00am March 01, 2021 1:00pm Start: 03-10-2019 End: 09-30-2019 Azelaic Acid (Finacea) 15 % Gel Discontinued 1 APPLIC TOPICAL Twice daily March 09, 2019 11:00pm September 30, 2019 12:53pm azelaic acid (Az elex) 20 % cream Apply 1 Application topically twice a day. 0 Active azithromycin 250 mg oral tablet (1 source) Macrolide Antimicrobial Start: 10-11-2021 Azithromycin 250 MG Oral Tablet Quantity: 6 Refills: 0 Ordered: 11-Oct-2021 DO Start : 11-Oct-2021 Complete baclofen 10 mg oral tablet (20 sources) gamma-Aminobutyric Acid-ergic Agonist Start: 07-20-2018 End: 08-29-2022 take 10 mg by mouth three times daily Baclofen Discontinued 10 MG PO Three times daily March 09, 2019 11:00pm August 29, 2022 8:48am Black Cohosh (8 sources) Start: 05-23-2019 End: 09-24-2019 Start: 05-23-2019 End: 09-24-2019 Calcium 600+D3 Plus Minerals 600-800 MG-UNIT Oral Tablet (3 sources) Start: 07-20-2018 take 600-800 tablets by mouth once daily Calcium 600+D3 Plus Minerals 600-800 MG-UNIT Oral Tablet TAKE 1 TAB DAILY Refills: 0 Start : 20-Jul-2018 Active Calcium 600+D3 Plus Minerals 600-800 MG-UNIT Oral Tablet (19 sources) Start: 07-20-2018 take 600-800 tablets by mouth once daily Calcium 600+D3 Plus Minerals 600-800 MG-UNIT Oral Tablet TAKE 1 TAB DAILY Quantity: 0 Refills: 0 Ordered: 20-Jul-2018 DO Start : 20-Jul-2018 Active Start: 07-20-2018 take 600-800 tablets by mouth once daily Calcium 600+D3 Plus Minerals 600-800 MG-UNIT Oral Tablet TAKE 1 TAB DAILY Refills: 0 Start : 20-Jul-2018 Active calcium carbonate 1500 mg / cholecalciferol 0.01 mg oral tablet (9 sources) Vitamin D Start: 03-10-2019 End: 08-29-2022 take 2 tablets by mouth once daily Calcium Carbonate-Vitamin D3 (Calcium 600 + D(3)) 600 mg(1,500mg) -400 unit Tablet Discontinued 2 TAB PO Daily March 09, 2019 11:00pm August 29, 2022 8:48am take 2 tablets by mouth once jenni ly calcium carbonate-vitamin D3 600 mg-20 mcg (800 unit) tablet Take 2 tablets by mouth once daily. 0 Active Ceramax CREA (2 sources) Ceramax CREA Ref ills: 0 Active chlorthalidone 50 mg oral tablet (8 sources) Thiazide-like Diuretic Start: 08-26-20 17 End: 03-10-20 19 take 50 mg by mouth once daily Chlorthalidone Discontinued 50 MG PO Daily August 26, 2017 12:00am March 10, 2019 1:54pm cholecalciferol 0.125 mg oral tablet (18 sources) Vitamin D Start: 05-23-20 19 End: 11-11-19 22 take 1 tablet by mouth once daily Cholecalciferol (Vitamin D3) (Vitamin D3) 5,000 unit Tablet Discontinued 5000 UNIT PO Daily May 22, 2019 11:00pm November 11, 2021 9:02am take 1 tablet by mouth in the mo rning cholecalciferol, vitamin D3, 5,000 units tablet Take 1 tablet (5,000 Units total) by mouth in the morning. 0 Active cholecalciferol (Vitamin D-3) 25 MCG (1000 UT) tablet Take 1 tablet (1,000 Units) by mouth. 0 Active Vitamin D3 TABS TAKE DIRECTED. Refills: 0 Active chondroitin sulfates 400 mg oral capsule (8 sources) Start: 05-23-2019 End: 10-07-2019 take 400 mg by mouth twice daily Chondroitin Sulfate A Sodium Discontinued 400 MG PO Twice daily May 22, 2019 11:00pm October 07, 2019 7:57pm ciprofloxacin 500 mg oral tablet (16 sources) Quinolone Antimicrobial Start: 05-23-2019 End: 06-07-2019 take 1 tablet by mouth every twelve hours Ciprofloxacin Hcl (Cipro) 500 mg tablet Discontinued 500 MG PO Q12H 10 5 May 29, 2019 11:00pm June 07, 2019 9:01am clonazePAM 2 mg oral tablet (20 sources) Benzodiazepine Start: 08-26-2017 End: 06-08-2020 take 2 mg by mouth once daily at bedtime Clonazepam Discontinued 2 MG PO Daily at bedtime August 26, 2017 12:00am June 08, 2020 11:58am Start: 12-25-2016 End: 03-01-2021 take 1 tablet by mouth once daily at bedtime Clonazepam (Klonopin) 2 mg tablet Discontinued 2 MG PO Daily at bedtime June 07, 2020 11:00pm March 01, 2021 1:00pm TAKE 1 TABLET BY MOUTH EVERYDAY AT BEDTIME Start: 12-25-2016 clonazePAM 1 M G Oral Tablet Quantity: 45 Refills: 0 Start : 25-Dec-2016 Active take 1 tablet by adriana th every eight hours clonazePAM 2 MG 1 tablet at bedtime Orally three times a day Active cobamamide 0.1 mg / vitamin b12 5 mg sublingual tablet (16 sources) Vitamin B12 Start: 05-23-2019 End: 06-07-2019 Cyanocobalamin-Cobamamide (B 12) 5,000-100 mcg Lozenge Discontinued LOZENGE May 22, 2019 11:00pm June 07, 2019 8:59am Start: 05-23-2019 End: 06-07-2019 Cyanocobalamin-Cobamamide (B 12) 5,000-100 mcg Lozenge Discontinued 1000 MG LOZENGE Daily May 22, 2019 11:00pm June 07, 2019 10:49am doxepin hydrochloride 10 mg oral capsule (8 sources) Tricyclic Antidepressant Start: 09-24-2019 End: 10-28-2019 take 10 mg by mouth once daily Doxepin Discontinued 10 MG PO Daily September 24, 2019 12:00am October 28, 2019 1:33pm doxycycline hyclate 100 mg oral capsule (20 sources) Tetracycline-class Drug Start: 08-29-2022 End: 12-17-2022 take 1 capsule by mouth twice daily Doxycycline Hyclate (Vibramycin) 100 mg capsule Discontinued 100 MG PO Twice daily August 29, 2022 12:00am December 17, 2022 10:15am Start: 06-09-2020 End: 03-01-2021 take 100 mg by mouth twice daily Doxycycline Hyclate Discontinued 100 MG PO Twice daily 03 07June 08, 2020 11:00pm March 01, 2021 1:00pm Start: 07-26-2019 End: 08-16-2019 take 100 mg by mouth twice daily Doxycycline Hyclate Discontinued 100 MG PO Twice daily July 26, 2019 12:00am August 16, 2019 10:23am 7 days per dermatology DULoxetine 30 mg delayed release oral capsule (20 sources) Serotonin and Norepinephrine Reuptake Inhibitor Start: 03-05-2021 End: 08-29-2022 take 30 mg by mouth once daily Duloxetine Discontinued 30 MG PO Daily March 04, 2021 11:00pm August 29, 2022 8:45am Start: 12-25-2016 End: 08-29-2022 take 60 mg by mouth at bedtime Duloxetine Discontinued 60 MG PO Bedtime 14 March 04, 2021 11:00pm August 29, 2022 8:52am Start: 12-25-2016 End: 03-01-2021 take 1 capsule by mouth twice daily Duloxetine (Cymbalta) 30 mg capsule,delayed release(DR/EC) Discontinued 30 MG PO Twice daily August 26, 2017 12:00am March 01, 2021 1:00pm take 2 capsules by m outh in the morning, then take 2 capsules by mouth at bedtime DULoxetine (CYMBALTA) 30 mg capsule Take 2 capsules (60 mg total) by mouth in the morning and 2 capsules (60 mg total) before bedtime. 0 Active Emollient Combination No.101 (Ceramax) cream (16 sources) Start: 06-07-2019 End: 09-30-2019 Emollient Combination No.101 (Ceramax) cream Discontinued 1 APPLIC TOPICAL Twice daily June 06, 2019 11:00pm September 30, 2019 12:55pm Start: 06-07-2019 End: 09-30-2019 Emollient Combination No.101 (Ceramax) cream Discontinued 1 APPLIC TOPICAL Twice daily June 07, 2019 12:00am September 30, 2019 1:55pm Start: 05-15-2019 End: 06-07-2019 Emollient Combination No.101 (Ceramax) cream Discontinued May 14, 2019 11:00pm June 07, 2019 10:48am Start: 05-15-2019 End: 06-07-2019 Emollient Combination No.101 (Ceramax) cream Discontinued May 15, 2019 12:00am June 07, 2019 11:48am Emollient Combination No.60 (Levicyn Antipruritic Sg) spray gel (8 sources) Start: 05-15-2019 End: 09-30-2019 apply 1 spray(s) topically twice daily Emollient Combination No.60 (Levicyn Antipruritic Sg) spray gel Discontinued 1 APPLIC TOPICAL Twice daily May 14, 2019 11:00pm September 30, 2019 12:55pm Start: 05-15-2019 End: 09-30-2019 apply 1 spray(s) topically twice daily Emollient Combination No.60 (Levicyn Antipruritic Sg) spray gel Discontinued 1 APPLIC TOPICAL Twice daily May 15, 2019 12:00am September 30, 2019 1:55pm esomeprazole 40 mg delayed release oral capsule (20 sources) Proton Pump Inhibitor Start: 03-01-2021 End: 11-11-2021 take 1 capsule by mouth once daily Esomeprazole Magnesium (Nexium) 40 mg Capsule,Delayed Release(Dr/Ec) Discontinued 40 MG PO Daily 0 March 01, 2021 1:00pm November 11, 2021 9:02am Start: 03-10-2019 End: 03-01-2021 take 1 capsule by mouth twice daily Esomeprazole Magnesium (Nexium) 40 mg Capsule,Delayed Release(Dr/Ec) Discontinued 40 MG PO Twice daily March 09, 2019 11:00pm March 01, 2021 1:00pm Start: 10-07-2017 take 2 capsules by m outh once daily before breakfast [facility] Esomeprazole Magnesium 20 MG Oral Capsule Delayed Release TAKE 2 CAPSULE BY MOUTH EVERY MORNING BEFORE BREAKFAST Quantity: 56 Refills: 0 Start : 07-Oct-2017 Active take 2 capsules by m outh twice daily esomeprazole (NexIUM) [address] capsule Take 2 capsules (40 mg) by mouth twice a day. 0 Active famotidine 20 mg oral tablet (20 sources) Histamine-2 Receptor Antagonist Start: 05-09-2020 End: 03-01-2021 take 1 tablet by mouth twice daily Famotidine (Pepcid) 20 mg tablet Discontinued 20 MG PO Twice daily June 07, 2020 11:00pm March 01, 2021 1:00pm TAKE 1 TABLET BY MOUTH TWICE A DAY Start: 08-26-2017 End: 03-10-2019 take 2 tablets by mouth once daily Famotidine Discontinued 2 TAB PO Daily August 26, 2017 12:00am March 10, 2019 1:55pm Famotidine 20 MG Oral Tablet Quantity: 0 Refills: 0 Ordered: 24-May-2020 DO Active ferrous sulfate 325 mg oral tablet (9 sources) Start: 06-08-2020 End: 03-01-2021 take 1 tablet by mouth once daily Ferrous Sulfate (Iron) 325 mg (65 mg iron) Tablet Discontinued 325 MG PO Daily June 07, 2020 11:00pm March 01, 2021 1:00pm take 1 tablet by mouth once vicenta y ferrous sulfate 324 mg (65 mg elemental iron) EC tablet (delayed release) Take 1 tablet (65 mg) by mouth once daily. 0 Active Fish Oil CAPS (18 sources) Fish Oil CAPS TA KE DAILY DIRECTED Quantity: 0 Refills: 0 Ordered: 19-Apr-2020 DO Active folic acid 0.4 mg / vitamin b12 1 mg sublingual tablet (8 sources) Vitamin B12 Start: 10-07-2019 End: 10-28-2019 take 1000 mg under the tongue once daily Vitamin E77-Tqyen Acid Discontinued 1000 MG SUBLINGUAL Daily October 07, 2019 12:00am October 28, 2019 1:41pm furosemide 20 mg oral tablet (20 sources) Loop Diuretic Start: 11-11-2021 End: 12-17-2022 take 20 mg by mouth once daily Furosemide Discontinued 20 MG PO Daily November 11, 2021 12:00am December 17, 2022 10:16am Start: 06-08-2020 End: 03-01-2021 take 1 tablet by mouth once daily in the morning Furosemide (Lasix) 20 mg tablet Discontinued 20 MG PO Every morning June 07, 2020 11:00pm March 01, 2021 1:00pm TAKE 1 TABLET BY MOUTH EVERY DAY Start: 08-26-2017 End: 03-10-2019 take 40 mg by mouth once daily Furosemide Discontinued 40 MG PO Daily August 26, 2017 12:00am March 10, 2019 1:55pm Dblqeogjvik-Nwyjtdprz-Nfc C- Mn (Glucosamine Chondroitin Maxstr) 500-400 mg Capsule (8 sources) Start: 03-10-2019 End: 03-01-2021 take 1 tablet by mouth twice daily Ltyehfndixr-Htgxbavif-Jac C-Mn (Glucosamine Chondroitin Maxstr) 500-400 mg Capsule Discontinued 1 TAB PO Twice daily March 09, 2019 11:00pm March 01, 2021 1:00pm Start: 03-10-2019 End: 03-01-2021 take 1 tablet by mouth twice daily Tyxssrlgafs-Ekicsamxm-Ior C-Mn (Glucosam ine Chondroitin Maxstr) 500-400 mg Capsule Discontinued 1 TAB PO Twice daily March 10, 2019 12:00am March 01, 2021 2:00pm Iron (18 sources) Iron TABS TAKE 6 5MG DAILY DIRECTED Quantity: 0 Refills: 0 Ordered: 19-Apr-2020 DO Active ketoconazole 20 mg/ml medicated shampoo (8 sources) Azole Antifungal Start: 06-08-20 End: 03-01-20 Ketoconazole (Nizoral) 2 % shampoo Discontinued 1 APPLIC TOPICAL 3 Times a week June 07, 2020 11:00pm March 01, 2021 1:00pm APPLY TO SCALP 2 TO 3 TIMES PER WEEK. LEAVE ON 3 TO 5 MINUTES THEN RINSE OFF. ketorolac tromethamine 10 mg oral tablet (8 sources) Nonsteroidal Anti-inflammatory Drug, Cyclooxygenase Inhibitor Start: 10-21-19 End: 03-01-20 take 10 mg by mouth every six hours Ketorolac Discontinued 10 MG PO Q6H 28 7 October 21, 2020 12:00am March 01, 2021 1:00pm Klor-Con M20 TBCR (14 sources) Klor-Con M20 TBC R Quantity: 0 Refills: 0 Ordered: 24-Jun-2021 DO Active lamoTRIgine 200 mg oral tablet (20 sources) Mood Stabilizer, Anti-epileptic Agent Start: 12-24-19 End: 12-18-19 23 take 1 tablet by mouth once daily at bedtime Lamotrigine (Lamictal) 200 mg tablet Discontinued 200 MG PO Daily at bedtime August 26, 2017 12:00am December 17, 2022 10:16am TAKE ONE TABLET BY MOUTH DAILY Levicyn Dermal [place]der[place]ott SOLN (2 sources) Levicyn Dermal [place]der[place]ott SOLN Refills: 0 Active lidocaine hydrochloride 0.02 mg/mg topical gel (8 sources) Antiarrhythmic, Amide Local Anesthetic Start: 05-30-20 End: 09-24-19 Lidocaine Hcl Discontinued 1 APPLIC TOPICAL .every other day May 29, 2019 11:00pm September 24, 2019 7:06pm apply small amount to left leg ulcer with dressing changes as needed for pain linseed oil 1000 mg oral capsule (8 sources) Start: 06-08-20 End: 03-01-20 21 take 1000 mg by mouth once daily Flaxseed Oil Discontinued 1000 MG PO Daily June 07, 2020 11:00pm March 01, 2021 1:00pm lurasidone hydrochloride 20 mg oral tablet (8 sources) Atypical Antipsychotic Start: 08-26-20 17 End: 03-10-20 19 take 1 tablet by mouth once daily Lurasidone (Latuda) 20 mg tablet Discontinued 2 TAB PO Daily August 26, 2017 12:00am March 10, 2019 1:56pm Magnesium (16 sources) Start: 03-10-20 19 End: 06-08-20 20 take 500 mg by mouth once daily Magnesium Discontinued 500 MG PO Daily March 09, 2019 11:00pm June 08, 2020 12:35pm Start: 03-10-2019 End: 06-08-2020 take 500 mg by mouth once daily Magnesium Discontinued 500 MG PO Daily March 10, 2019 12:00am June 08, 2020 1:35pm take 1 tablet by adriana once daily Magnesium 500 MG 1 tablet with a meal Orally Once a day Active magnesium oxide 400 mg oral tablet (20 sources) Start: 06-08-2020 End: 03-01-2021 take 400 mg by mouth once daily Magnesium Oxide Discontinued 400 MG PO Daily June 07, 2020 11:00pm March 01, 2021 1:00pm magnesium oxide 400 mg magnesium capsule Take 1 capsule (400 mg) by mouth. 0 Active Magnesium Oxide 400 MG CAPS TAKE DIRECTED. Quantity: 0 Refills: 0 Ordered: 19-Apr-2020 DO Active metFORMIN hydrochloride 500 mg oral tablet (8 sources) Biguanide Start: 08-26-2017 End: 03-10-2019 take 500 mg by mouth twice daily Metformin Discontinued 500 MG PO Twice daily August 26, 2017 12:00am March 10, 2019 1:56pm metOLazone 10 mg oral tablet (18 sources) Thiazide-like Diuretic Start: 10-07-2019 End: 06-08-2020 take 10 mg by mouth once daily Metolazone Discontinued 10 MG PO Daily October 07, 2019 12:00am June 08, 2020 12:34pm Start: 03-10-2019 End: 06-07-2019 take 5 mg by mouth once daily Metolazone Discontinued 5 MG PO Daily March 09, 2019 11:00pm June 07, 2019 10:48am Start: 07-20-2018 take 1 tablet by adriana th twice daily metOLazone 2.5 MG Oral Tablet take 1 tab twice daily Refills: 0 Start : 20-Jul-2018 Active modafinil 200 mg oral tablet (15 sources) Sympathomimetic-like Agent Start: 06-08-2020 End: 03-01-2021 take 2 tablets by mouth once daily in the morning Modafinil (Provigil) 200 mg tablet Discontinued 400 MG PO Every morning June 07, 2020 11:00pm March 01, 2021 1:00pm TAKE 2 TABLETS BY MOUTH EVERY MORNING take 1 tablet by adriana th once daily in the morning modafinil (Provigil) 200 mg tablet Take 1 tablet (200 mg) by mouth once daily in the morning. 0 Active Multiple Vitamin TABS (1 source) Multiple Vitamin TABS TAKE 1 TABLET DAILY. Refills: 0 Active Multiple Vitamin TABS (19 sources) Multiple Vitamin TABS TAKE 1 TABLET DAILY. Quantity: 0 Refills: 0 Ordered: 19-Apr-2020 DO Active Multiple Vitamin TABS TAKE 1 TABLET DAILY. Refills: 0 Active Multivitamin preparation (16 sources) Start: 06-07-2019 End: 03-01-2021 take 1 tablet by mouth once daily Multivitamin Discontinued 1 TAB PO Daily June 06, 2019 11:00pm March 01, 2021 1:00pm Start: 06-07-2019 End: 03-01-2021 take 1 tablet by mouth once daily Multivitamin Discontinued 1 TAB PO Daily June 07, 2019 12:00am March 01, 2021 2:00pm Multivitamin Act jem nitrofurantoin, macrocrystals 25 mg / nitrofurantoin, monohydrate 75 mg oral capsule (20 sources) Nitrofuran Antibacterial Start: 10-20-2021 End: 11-11-2021 take 1 capsule by mouth twice daily at mealtime Nitrofurantoin Monohyd/M-Cryst (Macrobid) 100 mg capsule Discontinued 100 MG PO Twice daily 14 7 October 20, 2021 12:00am November 11, 2021 9:02am must administer with a meal/food Start: 11-08-2020 End: 03-01-2021 take 1 capsule by mouth twice daily at mealtime Nitrofurantoin Monohyd/M-Cryst (Macrobid) 100 mg capsule Discontinued 100 MG PO Twice daily 14 7 November 08, 2020 12:00am March 01, 2021 1:00pm must administer with a meal/food Start: 02-27-2020 End: 03-08-2020 take 1 capsule by mouth twice daily at mealtime Nitrofurantoin Monohyd/M-Cryst (Macrobid) 100 mg capsule Discontinued 100 MG PO Twice daily 10 5 February 26, 2020 11:00pm March 08, 2020 1:58pm must administer with a meal/food Holland 4-Wgw-Ejm-Fish Oil (Fish Oil) 1,200 (144-216) mg Capsule (8 sources) Start: 06-08-2020 End: 03-01-2021 take 1 capsule by mouth once daily Holland 7-Kao-Wdw-Fish Oil (Fish Oil) 1,200 (144-216) mg Capsule Discontinued 1 CAP PO Daily June 07, 2020 11:00pm March 01, 2021 1:00pm Start: 06-08-2020 End: 03-01-2021 take 1 capsule by mouth once daily Holland 5-Max-Uyw-Fish Oil (Fish Oil) 1,200 (144-216) mg Capsule Discontinued 1 CAP PO Daily June 08, 2020 12:00am March 01, 2021 2:00pm Fish Oil CAPS (2 sources) Fish Oil CAPS TA KE DAILY DIRECTED Refills: 0 Active Plenvu 140 GM Oral Solution Reconstituted (1 source) Start: 2 Plenvu 140 GM Oral Solution Reconstituted Quantity: 3 Refills: 0 Ordered: 28-Oct-2021 DO Start : 28-Oct-2021 Complete pravastatin sodium 40 mg oral tablet (17 sources) HMG-CoA Reductase Inhibitor Start: 8 End: 1 take 1 tablet by mouth once daily at bedtime Pravastatin (Pravachol) 40 mg Tablet Discontinued 40 MG PO Daily at bedtime March 09, 2019 11:00pm November 08, 2020 5:14pm predniSONE 50 mg oral tablet (16 sources) Start: 0 End: 0 take 50 mg by mouth once daily Prednisone Discontinued 50 MG PO Daily 5 5 February 26, 2020 11:00pm March 08, 2020 1:58pm Start: 06-07-2019 End: 06-15-2019 take 50 mg by mouth once daily Prednisone Discontinued 50 MG PO Daily 5 June 06, 2019 11:00pm June 15, 2019 10:49am topiramate 100 mg oral table t (20 sources) Start: 01-14-2022 Topiramate 100 MG Oral Tablet Quantity: 30 Refills: 0 Ordered: 08-Feb-2022 DO Start : 14-Jan-2022 Complete Start: 03-05-2021 take 100 mg by mouth once daily at bedtime Topiramate Active 100 MG PO Daily at bedtime March 04, 2021 11:00pm Start: 05-15-2019 End: 03-01-2021 take 1 tablet by mouth at bedtime Topiramate (Topamax) 100 mg Tablet Discontinued 100 MG PO Bedtime May 14, 2019 11:00pm March 01, 2021 1:00pm Start: 07-20-2018 End: 11-11-2021 take 50 mg by mouth once daily Topiramate Discontinued 50 MG PO Daily March 04, 2021 11:00pm November 11, 2021 9:03am Start: 07-20-2018 take 1 tablet by adriana th twice daily Topamax 50 MG Oral Tablet TAKE 1 TABLET TWICE DAILY. Refills: 0 Start : 20-Jul-2018 Active take 2 tablets by mo [facility] once daily topiramate (TOPAMAX) 50 mg tablet Take 2 tablets (100 mg total) by mouth nightly. 0 Active varenicline 1 mg oral tablet (15 sources) Partial Cholinergic Nicotinic Agonist Start: 06-08-2020 End: 03-01-2021 take 1 tablet by mouth twice daily Varenicline (Chantix Continuing Month Box) 1 mg tablet Discontinued 1 MG PO Twice daily June 07, 2020 11:00pm March 01, 2021 1:00pm TAKE ONE TABLET BY MOUTH TWICE DAILY DIRECED Chantix TABS NADIYA E 1 TABLET TWICE DAILY. Quantity: 0 Refills: 0 Ordered: 19-Apr-2020 DO Active Chantix TABS NADIYA E 1 TABLET TWICE DAILY. Refills: 0 Active Vitamin B Complex (Vitamins B Complex) Capsule (8 sources) Start: 05-23-2019 End: 09-24-2019 take 1 capsule by mouth once daily Vitamin B Complex (Vitamins B Complex) Capsule Discontinued 1 CAP PO Daily May 22, 2019 11:00pm September 24, 2019 7:09pm Start: 05-23-2019 End: 09-24-2019 take 1 capsule by mouth once daily Vitamin B Complex (Vitamins B Complex) Capsule Discontinued 1 CAP PO Daily May 23, 2019 12:00am September 24, 2019 8:09pm Vitamin B Complex TABS (18 sources) Vitamin B Comple x TABS TAKE 1 TABLET DAILY. Quantity: 0 Refills: 0 Ordered: 19-Apr-2020 DO Active Vitamin B Complex-Folic Acid (Super B Maxi Complex) 0.4 mg Tablet (8 sources) Start: 06-08-2020 End: 03-01-2021 take 1 tablet by mouth once daily Vitamin B Complex-Folic Acid (Super B Maxi Complex) 0.4 mg Tablet Discontinued 1 TAB PO Daily June 07, 2020 11:00pm March 01, 2021 1:00pm Start: 06-08-2020 End: 03-01-2021 take 1 tablet by mouth once daily Vitamin B Complex-Folic Acid (Super B Maxi Complex) 0.4 mg Tablet Discontinued 1 TAB PO Daily June 08, 2020 12:00am Silvana 18th, 2021 2:00pm vitamin b12 1 mg oral tablet (20 sources) Vitamin B12 Start: 10-28-2019 End: 03-01-2021 take 1 tablet by mouth once daily Cyanocobalamin (Vitamin B-12) (Vitamin B-12) 1,000 mcg Tablet Discontinued 1000 MCG PO Daily October 28, 2019 12:00am March 01, 2021 1:00pm Start: 09-24-2019 End: 09-30-2019 take 1 tablet by mouth once daily Cyanocobalamin (Vitamin B-12) (Vitamin B-12) 1,000 mcg Tablet Discontinued 1000 MCG PO Daily September 24, 2019 12:00am September 30, 2019 12:55pm Vitamin B12 Acti ve Vitamin C TABS (18 sources) Vitamin C TABS T ARTURO DAILY DIRECTED Quantity: 0 Refills: 0 Ordered: 19-Apr-2020 DO Active Vitamin D3 TABS (18 sources) Vitamin D3 TABS TAKE DIRECTED. Quantity: 0 Refills: 0 Ordered: 19-Apr-2020 DO Active zonisamide 50 mg oral capsule (15 sources) Anti-epileptic Agent Start: 03-08-2020 End: 06-28-2020 take 100 mg by mouth once daily at bedtime Zonisamide Discontinued 100 MG PO Daily at bedtime March 07, 2020 11:00pm June 28, 2020 8:33am take 2 capsules by m outh once daily at bedtime zonisamide (Zonegran) 50 mg capsule Take 2 capsules (100 mg) by mouth once daily at bedtime. 0 Active Problems Active Problems Problem Classification Problem Date Documented Da te Episodic/Chronic Abdominal pain (20 sources) Abdominal pain; Translations: [Unspecified abdominal pain] Onset: 3 10-20-2021 Episodic Anxiety disorders (1 source) Anxiety; Translations: [Anxiety disorder, unspecified] Onset: 3 07-19-2023 Chronic Aspiration pneumonitis; food/vomitus (8 sources) Aspiration pneumonia; Translations: [Pneumonitis due to inhalation of food and vomit] 02-27-2021 Episodic Asthma (20 sources) Cough variant asthma; Translations: [Cough variant asthma] Onset: 1 Resolved: 2 Chronic Chronic ulcer of skin (16 sources) Ulcer of lower extremity; Translations: [Non-pressure chronic ulcer of unspecified part of left lower leg with unspecified severity] 07-11-2020 Chronic Conditions associated with dizziness or vertigo (20 sources) Dizziness and giddiness; Translations: [Dizziness and giddiness] Onset: 3 11-08-2020 Episodic Diabetes mellitus without complication (8 sources) Diabetes mellitus; Translations: [Type 2 diabetes mellitus without complications] 05-23-2019 Chronic Disorders of lipid metabolism (2 sources) Hypercholesterolemia; Translations: [Pure hypercholesterolemia, unspecified] Onset: 3 07-19-2023 Chronic Disorders of teeth and jaw (1 source) Chronic gingivitis, plaque induced; Translations: [CHRONIC GINGIVITIS PLAQUE INDUCED] Onset: 2 Chronic Diverticulosis and diverticulitis (5 sources) Diverticulitis of gastrointestinal tract; Translations: [Diverticulitis] Onset: 3 01-09-2023 Chronic Esophageal disorders (20 sources) Diffuse spasm of esophagus; Translations: [Dyskinesia of esophagus] Onset: 7 Resolved: 2 Chronic Fluid and electrolyte disorders (8 sources) Hypokalemia; Translations: [Hypokalemia] 10-07-2019 Episodic Fracture of lower limb (20 sources) Closed fracture of upper end of fibula; Translations: [Closed fracture of upper end of fibula alone] Onset: 3 07-19-2023 Episodic Fracture of lower limb (1 source) Displaced fracture of medial condyle of right tibia, initial encounter for closed fracture Episodic Gastritis and duodenitis (20 sources) Gastritis; Translations: [Gastritis, unspecified, without bleeding] Onset: 2 Resolved: 2 Episodic Gastroduodenal ulcer (except hemorrhage) (1 source) Peptic ulcer; Translations: [Peptic ulcer, site unspecified, unspecified as acute or chronic, without hemorrhage or perforation] Onset: 3 07-19-2023 Chronic Headache; including migraine (20 sources) Cyclical vomiting syndrome; Translations: [Cyclical vomiting, in migraine, not intractable] Onset: 2 Resolved: 2 Chronic Joint disorders and dislocations; trauma-related (20 sources) Knee locking; Translations: [Patellofemoral stress syndrome] Onset: 3 07-19-2023 Chronic Joint disorders and dislocations; trauma-related (20 sources) Patellofemoral stress syndrome; Translations: [Tear of lateral meniscus of knee] Onset: 3 07-19-2023 Episodic Menopausal disorders (1 source) Postmenopausal bleeding; Translations: [Postmenopausal bleeding] Onset: 3 Chronic Miscellaneous mental health disorders (20 sources) Mental disorder; Translations: [Mental disorder, not otherwise specified] Chronic Mood disorders (20 sources) Bipolar I disorder; Translations: [Bipolar disorder, unspecified] Onset: 3 03-01-2021 Chronic Nausea and vomiting (20 sources) Nausea and vomiting; Translations: [Nausea with vomiting, unspecified] 10-07-2019 Episodic Nonmalignant breast conditions (20 sources) Large breast; Translations: [Hypertrophy of breast] Episodic Osteoarthritis (20 sources) Bilateral primary osteoarthritis of knee; Translations: [Arthritis of shoulder region joint] Onset: 3 07-19-2023 Chronic Osteoporosis (20 sources) Osteoporosis; Translations: [Age-related osteoporosis without current pathological fracture] Chronic Other acquired deformities (16 sources) Acquired scoliosis; Translations: [Disorder of bone and cartilage, unspecified] Chronic Other acquired deformities (3 sources) Other secondary scoliosis, site unspecified; Translations: [Degenerative scoliosis in adult patient] Onset: 3 07-19-2023 Chronic Other acquired deformities (19 sources) Acquired genu valgum; Translations: [Genu valgum (acquired)] Onset: 3 07-19-2023 Episodic Other aftercare (20 sources) Surgical follow-up; Translations: [Follow-up examination, following other surgery] Episodic Other aftercare (19 sources) Antibiotic prophylaxis indicated; Translations: [Long-term (current) use of antibiotics] Episodic Other aftercare (1 source) Other middle or intermediate school principal (current) drug therapy; Translations: [OTH PENITENTIARY CURRENT DRUG THERAPY] Onset: 3 Episodic Other and unspecified benign neoplasm (20 sources) History of polyp of colon; Translations: [Personal history of colonic polyps] 11-11-2021 Episodic Other bone disease and musculoskeletal deformities (1 source) Osteopenia; Translations: [Other specified disorders of bone density and structure, unspecified site] Onset: 3 07-19-2023 Episodic Other circulatory disease (18 sources) H/O: hypertension; Translations: [Personal history of other diseases of circulatory system] Episodic Other connective tissue disease (3 sources) H/O: artificial joint; Translations: [Status post replacement of right shoulder joint] Chronic Other connective tissue disease (10 sources) History of right shoulder arthroplasty; Translations: [Shoulder joint replacement] Chronic Other connective tissue disease (8 sources) Presence of right artificial shoulder joint; Translations: [Presence of right artificial shoulder joint] Onset: 2 Chronic Other connective tissue disease (20 sources) Foot pain; Translations: [Pain in limb] Episodic Other connective tissue disease (20 sources) Tendinitis of right rotator cuff; Translations: [Disorders of bursae and tendons in shoulder region, unspecified] Onset: 3 07-19-2023 Episodic Other connective tissue disease (19 sources) History of cervical spine fusion; Translations: [Arthrodesis status] Episodic Other connective tissue disease (20 sources) Myofascial pain syndrome; Translations: [Myalgia and myositis, unspecified] Onset: 3 07-19-2023 Episodic Other connective tissue disease (20 sources) Rotator cuff arthropathy of right shoulder; Translations: [Other specified arthropathy, shoulder region] Onset: 3 07-19-2023 Episodic Other connective tissue disease (20 sources) Fibromyalgia; Translations: [Fibromyalgia] Onset: 3 07-19-2023 Episodic Other connective tissue disease (1 source) Muscle weakness; Translations: [Muscle weakness (generalized)] Onset: 3 07-19-2023 Episodic Other connective tissue disease (1 source) Disorder of lower extremity; Translations: [Other muscle spasm] Onset: 3 07-19-2023 Episodic Other connective tissue disease (1 source) Bilateral trochanteric bursitis; Translations: [Trochanteric bursitis, right hip] Onset: 3 07-19-2023 Episodic Other disorders of stomach and duodenum (3 sources) Indigestion; Translations: [Functional dyspepsia] Episodic Other disorders of stomach and duodenum (1 source) Functional dyspepsia Episodic Other ear and sense organ disorders (12 sources) Otitis externa of right ear; Translations: [Unspecified otitis externa, right ear] Chronic Other ear and sense organ disorders (3 sources) Otalgia, right ear; Translations: [OTALGIA RIGHT EAR] Onset: 3 Episodic Other female genital disorders (12 sources) Postcoital bleeding; Translations: [Postcoital and contact bleeding] Chronic Other female genital disorders (20 sources) Cervical intraepithelial neoplasia grade 1; Translations: [Mild cervical dysplasia] Episodic Other fractures (20 sources) Compression fracture of lumbar spine; Translations: [Closed fracture of lumbar vertebra without mention of spinal cord injury] Onset: 3 07-19-2023 Episodic Other gastrointestinal disorders (20 sources) Irritable bowel syndrome; Translations: [Irritable bowel syndrome without diarrhea] Chronic Other gastrointestinal disorders (1 source) Irritable bowel syndrome without diarrhea Onset: 2 Resolved: 2 Chronic Other gastrointestinal disorders (1 source) Heartburn Episodic Other hereditary and degenerative nervous system conditions (3 sources) Tardive dyskinesia; Translations: [Tardive dyskinesia] Chronic Other hereditary and degenerative nervous system conditions (20 sources) Medication-induced movement disorder; Translations: [Unspecified extrapyramidal disease and abnormal movement disorder] Onset: 3 07-19-2023 Chronic Other hereditary and degenerative nervous system conditions (20 sources) Restless legs; Translations: [Restless legs syndrome (RLS)] Onset: 3 07-19-2023 Chronic Other hereditary and degenerative nervous system conditions (13 sources) Myoclonus; Translations: [Myoclonus] Onset: 3 Chronic Other hereditary and degenerative nervous system conditions (1 source) Myoclonus; Translations: [Myoclonus] Onset: 3 Chronic Other hereditary and degenerative nervous system conditions (20 sources) Tardive dyskinesia; Translations: [Subacute dyskinesia due to drugs] Onset: 3 07-19-2023 Episodic Other infections; including parasitic (8 sources) Disorder due to infection; Translations: [Unspecified infectious disease] 05-23-2019 Episodic Other injuries and conditions due to external causes (1 source) Unspecified injury of right lower leg, initial encounter Episodic Other lower respiratory disease (20 sources) Cough; Translations: [Cough] Episodic Other lower respiratory disease (20 sources) Nodule of lung; Translations: [Solitary pulmonary nodule] Episodic Other nervous system disorders (20 sources) Polyneuropathy; Translations: [Unspecified hereditary and idiopathic peripheral neuropathy] Onset: 3 07-19-2023 Chronic Other nervous system disorders (20 sources) Narcolepsy; Translations: [Narcolepsy without cataplexy] Onset: 3 07-19-2023 Chronic Other nervous system disorders (20 sources) Chronic pain; Translations: [Other chronic pain] Chronic Other nervous system disorders (20 sources) Narcolepsy without cataplexy; Translations: [Narcolepsy G47.419] Onset: 1 Resolved: 2 Chronic Other nervous system disorders (20 sources) Acute postoperative pain; Translations: [Other acute postoperative pain] 12-31-2022 Episodic Other nervous system disorders (20 sources) Abnormal gait; Translations: [Abnormality of gait] Onset: 3 07-19-2023 Episodic Other nervous system disorders (20 sources) Tremor; Translations: [Abnormal involuntary movements] Onset: 3 07-19-2023 Episodic Other nervous system disorders (20 sources) Numbness and tingling sensation of skin; Translations: [Disturbance of skin sensation] Onset: 3 07-19-2023 Episodic Other nervous system disorders (20 sources) Skin sensation disturbance; Translations: [Paresthesia of skin] Episodic Other nervous system disorders (8 sources) Postoperative pain ; Translations: [Other acute postprocedural pain] 03-24-2019 Episodic Other nervous system disorders (1 source) Trigeminal neuralgia; Translations: [TRIGEMINAL NEURALGIA] Onset: 3 Episodic Other nervous system disorders (2 sources) Tremor, unspecified; Translations: [Tremor, unspecified] Onset: 3 Episodic Other nervous system disorders (1 source) H/O: trigeminal neuralgia; Translations: [Personal history of other diseases of the nervous system and sense organs] Onset: 3 07-19-2023 Episodic Other non-traumatic joint disorders (1 source) Arthritis of shoulder region joint; Translations: [Arthritis of right shoulder region] Chronic Other non-traumatic joint disorders (20 sources) Shoulder pain; Translations: [Pain in joint, shoulder region] 09-24-2019 Episodic Other non-traumatic joint disorders (4 sources) Knee pain; Translations: [Pain in joint, lower leg] Episodic Other non-traumatic joint disorders (19 sources) Effusion, left knee; Translations: [Effusion of joint of left knee] Episodic Other non-traumatic joint disorders (20 sources) Pain in unspecified knee; Translations: [Knee pain] 01-19-2021 Episodic Other non-traumatic joint disorders (8 sources) Hip pain; Translations: [Pain in right hip] 06-07-2019 Episodic Other non-traumatic joint disorders (6 sources) Pain in right shoulder; Translations: [Acute pain of right shoulder] Onset: 3 Episodic Other nutritional; endocrine; and metabolic disorders (12 sources) Body mass index 40+ - severely obese; Translations: [Body mass index (BMI) 45.0-49.9, adult] Chronic Other nutritional; endocrine; and metabolic disorders (8 sources) Obesity; Translations: [Obesity, unspecified] 06-14-2020 Chronic Other screening for suspected conditions (not mental disorders or infectious disease) (1 source) Encounter for screening for osteoporosis; Translations: [Encounter for screening for osteoporosis] Onset: 3 Episodic Other skin disorders (19 sources) Skin symptom; Translations: [Other symptoms involving skin and integumentary tissues] Episodic Other skin disorders (1 source) Skin finding; Translations: [Unspecified skin changes] Onset: 3 07-19-2023 Episodic Residual codes; unclassified (20 sources) Obstructive sleep apnea syndrome; Translations: [Obstructive sleep apnea (adult) (pediatric)] Chronic Residual codes; unclassified (1 source) Chronic back pain ; Translations: [Back pain, chronic] Episodic Residual codes; unclassified (1 source) Asymptomatic menopausal state; Translations: [Asymptomatic menopausal state] Onset: 3 Episodic Respiratory failure; insufficiency; arrest (adult) (8 sources) Acute respiratory failure; Translations: [Acute respiratory failure with hypoxia] 02-26-2021 Episodic Skin and subcutaneous tissue infections (20 sources) Cellulitis; Translations: [Cellulitis, unspecified] 06-08-2020 Episodic Spondylosis; intervertebral disc disorders; other back problems (20 sources) Cervical spondylosis; Translations: [Cervical radiculopathy] Onset: 7 12-25-2019 Chronic Sprains and strains (20 sources) Chronic rupture of anterior cruciate ligament of left knee; Translations: [Sprain of cruciate ligament of knee] Onset: 3 08-26-2017 Episodic Suicide and intentional self-inflicted injury (8 sources) Intentional drug overdose by tablet; Translations: [Poisoning by unspecified drugs, medicaments and biological substances, intentional self-harm, initial encounter] 02-26-2021 Episodic Superficial injury; contusion (20 sources) Contusion of knee; Translations: [Contusion of knee] Onset: 3 07-05-2020 Episodic Syncope (20 sources) Loss of consciousness; Translations: [Syncope] Onset: 3 07-19-2023 Episodic Unclassified (1 source) Encounter for screening mammogram for malignant neoplasm of breast; Translations: [Encounter for screening mammogram for malignant neoplasm of breast] Onset: 3 Unclassified (1 source) Encounter for preprocedural laboratory examination; Translations: [Encounter for preprocedural laboratory examination] Onset: 3 Unclassified (1 source) Nondisplaced fracture of medial condyle of right tibia, subsequent encounter for closed fracture with routine healing; Translations: [Nondisplaced fracture of medial condyle of right tibia, subsequent encounter for closed fracture with routine healing] Onset: 3 Urinary tract infections (20 sources) Urinary tract infectious disease; Translations: [Urinary tract infection, site not specified] 02-27-2020 Episodic Past or Other Problems Problem Classification Problem Date Documented Da te Episodic/Chronic Administrative/social admission (12 sources) Patient encounter status; Translations: [Dietary counseling and surveillance] Episodic Diseases of mouth; excluding dental (10 sources) Glossodynia; Translations: [Glossodynia] Onset: 9 03-24-2019 Episodic Disorders of teeth and jaw (5 sources) Other specified disorders of teeth and supporting structures; Translations: [Temporomandibular joint disorder] Onset: 8 Episodic Joint disorders and dislocations; trauma-related (4 sources) Chondromalacia of left patella; Translations: [Chronic rupture of anterior cruciate ligament of left knee] Mood disorders (1 source) Mood disorders Onset: 1 01-15-2021 Other and unspecified benign neoplasm (1 source) Personal history of colonic polyps Onset: 2 Resolved: 2 Episodic Other connective tissue disease (1 source) Trochanteric bursitis of left hip; Translations: [Trochanteric bursitis, left hip] Onset: 3 11-26-2022 Episodic Other connective tissue disease (3 sources) Tendinitis of right rotator cuff; Translations: [Rotator cuff tendonitis, right] Other gastrointestinal disorders (20 sources) Dysphagia; Translations: [Dysphagia, unspecified] Onset: 0 10-13-2019 Episodic Other gastrointestinal disorders (12 sources) Constipation; Translations: [Constipation, unspecified] Episodic Other lower respiratory disease (9 sources) Solitary pulmonary nodule; Translations: [Pulmonary nodule R91.1] Onset: 1 Resolved: 2 Episodic Other nervous system disorders (12 sources) Paresthesia of hand ; Translations: [Paresthesia of skin] Episodic Other nervous system disorders (1 source) Other acute postprocedural pain; Translations: [Other acute postprocedural pain] Onset: 3 Episodic Other nervous system disorders (1 source) Right trigeminal neuralgia; Translations: [Trigeminal neuralgia] Onset: 3 11-26-2022 Episodic Other non-traumatic joint disorders (4 sources) Pain in right knee; Translations: [PAIN IN RIGHT KNEE] Onset: 2 Episodic Other non-traumatic joint disorders (3 sources) Rotator cuff arthropathy of right shoulder; Translations: [Rotator cuff tear arthropathy of right shoulder] Other upper respiratory disease (1 source) Hoarse; Translations: [Dysphonia] Onset: 7 01-05-2020 Episodic Other upper respiratory disease (1 source) Polyp of vocal cord ; Translations: [Polyp of vocal cord and larynx] Onset: 0 01-11-2020 Episodic Other upper respiratory infections (1 source) Acute sinusitis; Translations: [Acute sinusitis, unspecified] Onset: 7 Resolved: 2 10-16-2021 Episodic Otitis media and related conditions (2 sources) Dysfunction of bilateral eustachian tubes; Translations: [Unspecified Eustachian tube disorder, bilateral] Onset: 3 Resolved: 3 10-13-2022 Episodic Residual codes; unclassified (1 source) Antibiotic prophylaxis indicated; Translations: [Prophylactic antibiotic] Screening and history of mental health and substance abuse codes (1 source) Personal history of nicotine dependence; Translations: [PERSONAL HISTORY OF NICOTINE DEPEND] Onset: 2 Episodic Sexually transmitted infections (not HIV or hepatitis) (12 sources) Human papillomavirus deoxyribonucleic acid test positive, high risk on cervical specimen; Translations: [Cervical high risk human papillomavirus (HPV) DNA test positive] Episodic Spondylosis; intervertebral disc disorders; other back problems (20 sources) Chronic neck pain; Translations: [Cervical radiculopathy] Onset: 8 10-21-2020 Episodic Unclassified (3 sources) Myofascial pain syndrome; Translations: [Myofascial pain syndrome] Unclassified (3 sources) History of cervical spine fusion; Translations: [Status post cervical spinal fusion] Unclassified (5 sources) Patient encounter status; Translations: [Pre-op evaluation] Unclassified (8 sources) Wound ; Translations: [Traumatic wound] 08-02-2020 Unclassified (1 source) Onset: 3 07-21-2023 NEGATED: Highlighted row has not occurred!Residual codes; unclassified (20 sources) Disease Episodic Results Test Name Value Interpretation Reference Range Facility MM screening mammo BI w/CADo n 09-08-2023 MM screening mammo BI w/CAD [facility] Main [place] [id number] Mammography Report Signed Patient: Georgia Junior MR#: [id number] : 1965 Acct:[id number] Age/Sex: 58 / F ADM Date: 09/08/23 Loc: [place] Room: Type: [facility] Attending Dr: Flako Crane MD Copies to: [facility] Flako Crane MD-[facility] Ordering Provider: Flako Crane MD-[facility] Date of Service: 09/08/23 MM/MM screening mammo BI w/CAD: screening;Encounter for screening mammogram for malignant ne CLINICAL DATA: Screening for malignancy. SCREENING MAMMOGRAM - FULL FIELD DIGITAL WITH TOMOSYNTHESIS AND CAD COMPARISON:Mammograms dating back to 2019 Tomosynthesis craniocaudal and mediolateral oblique views of both breasts were obtained using low- dose digital technique. This examination was reviewed with the aid of CAD. The breast tissue is composed of scattered fibroglandular densities. There are no dominant masses, typically malignant calcifications or architectural distortion. There has been no significant interval change. MM/MM screening mammo BI w/CAD IMPRESSION: NO MAMMOGRAPHIC EVIDENCE OF MALIGNANCY. ROUTINE FOLLOW-UP IS RECOMMENDED IN ONE YEAR. RESULT CODE: 1 Negative DENSITY CODE: 2 (approximately 25-50% glandular) FOLLOW UP: 1YR The false-negative rate of mammography is approximately 10-percent. Management of a palpable abnormality must be based on clinical grounds. Patient was entered into a reminder system with a target due date for the next mammogram. Impression dictated by: Ector Pal Jr., DCristalOCristal09/08/2023 10:14 AM Dictation Location: [facility] Transcribed By: KRIS 09/08/23 1014 Dictated By: Ector Pal Jr, DO 09/08/23 1013 Signed By: 09/08/23 1014 [facility] EMG & nerve conductionon Impression: This is an abnormal EMG/NCS of bilateral lower extremities. There is electrophysiological evidence consistent with chronic moderate bilateral L5 and left S1 radiculopathy with no active denervation. Robb Castro M.D. ----- NEUROLOGY Robb Castro MD - 08/28/2023 IMPRESSION: Impression: This is an abnormal EMG/NCS of bilateral lower extremities. There is electrophysiological evidence consistent with chronic moderate bilateral L5 and left S1 radiculopathy with no active denervation. Robb Castro M.D. ------ ------ ------ [facility] Work Phone: EMG & nerve conductionOrdere d By: Robb Castro on 08-28-2023 [facility] Work Phone: [place] 06-17-2023 Screens [id number] CD:127 Normal [facility] Patient Educationon 06-16-20 Patient Education Urology Urethral Stricture Urethral stricture is narrowing of the tube (urethra) that carries urine from the bladder out of the body. The urethra can become narrow due to scar tissue from an injury or infection. This can make it difficult to pass urine. In women, the urethra opens above the vaginal opening. In men, the urethra opens at the tip of the penis, and the urethra is much longer than it is in women. Because of the length of the male urethra, urethral stricture is much more common in men. This condition is treated with surgery. What are the causes? In both men and women, common causes of urethral stricture include: ? Urinary tract infection (UTI). ? Sexually transmitted infection (STI). ? Use of a tube placed into the urethra to drain urine from the bladder (urinary catheter). ? Urinary tract surgery. In men, common causes of urethral stricture include: ? A severe injury to the pelvis. ? Prostate surgery. ? Injury to the penis. In many cases, the cause of urethral stricture is not known. What increases the risk? You are more likely to develop this condition if you: ? Are male. Men who have had prostate surgery are at risk of developing this condition. ? Use a urinary catheter. ? Have had urinary tract surgery. What are the signs or symptoms? The main symptom of this condition is difficulty passing urine. This may cause decreased urine flow, dribbling, or spraying of urine. Other symptom of this condition may include: ? Frequent UTIs. ? Blood in the urine. ? Pain when urinating. ? Swelling of the penis in men. ? Inability to pass urine (urinary obstruction). How is this diagnosed? This condition may be diagnosed based on: ? Your medical history and a physical exam. ? Urine tests to check for infection or bleeding. ? X-rays. ? Ultrasound. ? Retrograde urethrogram. This is a type of test in which dye is injected into the urethra and then an X-ray is taken. ? Urethroscopy. This is when a thin tube with a light and camera on the end (urethroscope) is used to look at the urethra. How is this treated? This condition is treated with surgery. The type of surgery that you have depends on the severity of your condition. You may have: ? Urethral dilation. In this procedure, the narrow part of the urethra is stretched open (dilated) with dilating instruments or a small balloon. ? Urethrotomy. In this procedure, a urethroscope is placed into the urethra, and the narrow part of the urethra is cut open with a surgical blade inserted through the urethroscope. ? Open surgery. In this procedure, an incision is made in the urethra, the narrow part is removed, and the urethra is reconstructed. Follow these instructions at home: ? Take [id number] and prescription medicines only as told by your health care provider. ? If you were prescribed an antibiotic medicine, take it as told by your health care provider. Do not stop taking the antibiotic even if you start to feel better. ? Drink enough fluid to keep your urine pale yellow. ? Keep all follow-up visits as told by your health care provider. This is important. Contact a health care provider if: ? You have signs of a urinary tract infection, such as: ? Frequent urination or passing small amounts of urine frequently. ? Needing to urinate urgently. ? Pain or burning with urination. ? Urine that smells bad or unusual. ? Cloudy urine. ? Pain in the lower abdomen or back. ? Trouble urinating. ? Blood in the urine. ? Vomiting or being less hungry than normal. ? Diarrhea or abdominal pain. ? Vaginal discharge, if you are female. ? Your symptoms are getting worse instead of better. Get help right away if: ? You cannot pass urine. ? You have a fever. ? You have swelling, bruising, or discoloration of your genital area. This includes the penis, scrotum, and inner thighs for men, and the outer genital organs (vulva) and inner thighs for women. ? You develop swelling in your legs. ? You have difficulty breathing. Summary ? Urethral stricture is narrowing of the tube (urethra) that carries urine from the bladder out of the body. The urethra can become narrow due to scar tissue from an injury or infection. ? This condition can make it difficult to pass urine. ? This condition is treated with surgery. The type of surgery that you have depends on the severity of your condition. ? Contact a health care provider if your symptoms get worse or you have signs of a urinary tract infection. This information is not intended to replace advice given to you by your health care provider. Make sure you discuss any questions you have with your health care provider. Document Revised: 07/08/2022 Document Reviewed: 07/08/2022 ShowUhow Patient Education ? 2022 [employer]. Isidro [facility] Urology Office/Clinic Noteon 06-16-2023 Urology Office/Clinic Note Chief Complaint 6m HPI Staff Former DLS pt 6m DX: Urethral Stricture, Incomplete Bladder Emptying, Mixed Incontinence & Microhematuria *Terazosin 5mg QD therapy +UACS @ time of last encounter. *>100k E Coli- pt asymptomatic. Did not treat. Pt states she is unable to provide urine specimen at this time. Denies current pain/burning and blood in urine. Denies UTI's since last encounter. Minimal leaking. Wears underwear with built in pad. Does not need to change. No complaints with stream. Denies any urinary concerns at this time. History of Present Illness staff HPI reviewed and agree. Review of Systems PHQ Score Initial Depression Screen Score: 0 no fever, chills, malaise, myalgia. no rash/lesions. no chest pain, palpitations, or SOB. no abdominal pain, nausea, vomiting. no unilateral calf swelling, redness, pain Physical Exam Vitals & Measurements HR: 80(Peripheral) RR: 16 BP: 130/72 HT: 61 in HT: 154 cm WT: 87.5 kg WT: 192.5 lb BMI: 36.89 General: nontoxic, NAD Mouth: moist mucosa Lungs: normal respiratory effort Cardio: regular rate, good distal perfusion Abdomen: nondistended, no suprapubic distention or tenderness, no CVA tenderness Neurologic: Grossly normal Skin: No rashes or suspicious lesions Assessment/Plan 1. Urethral stricture (N35.12: Postinfective urethral stricture, not elsewhere classified, female) S/p Cysto/UD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 [place] [address] [place] Glucose Ql (U) Normal Normal Normal [facility] Comment on above: Order Comment: Name Collection Type:: Clean-Voided Midstream Performed By: #### C UU, ADDONUAPLUS #### [facility] [address] [place] [address] [place] Hyaline Casts,Urine 0-8 Normal 0-8 [facility] [place] Comment on above: Order Comment: Name Collection Type:: Clean-Voided Midstream Result Comment: PERF ORMED BY: [place] [address] PATHOLOGIST TOOL TENDER DIANA CAMPO M.D. Performed By: #### C UU, ADDONUAPLUS #### [facility] [address] [place] [address] [place] Ketones Ql (U) Negative Normal Negative [facility] Comment on above: Order Comment: Name Collection Type:: Clean-Voided Midstream Performed By: #### C UU, ADDONUAPLUS #### [facility] [address] [place] [address] [place] Leukocyte esterase Test strip Ql (U) 1+ High Negative [facility] Comment on above: Order Comment: Name Collection Type:: Clean-Voided Midstream Performed By: #### C UU, ADDONUAPLUS #### [facility] [address] [place] [address] [place] Nitrite,Urine Negative Normal Negative [facility] Comment on above: Order Comment: Name Collection Type:: Clean-Voided Midstream Performed By: #### C UU, ADDONUAPLUS #### [facility] [address] [place] [address] [place] Occult Blood,Urine 1+ High Negative [facility] Comment on above: Order Comment: Name Collection Type:: Clean-Voided Midstream Result Comment: PERF ORMED BY: [place] [address] PATHOLOGIST TOOL TENDER DIANA CAMPO M.D. Performed By: #### C UU, ADDONUAPLUS #### [address] pH (U) 5.5 [pH] Normal 5.0-9.0 [facility] Comment on above: Order Comment: Name Collection Type:: Clean-Voided Midstream Performed By: #### C UU, ADDONUAPLUS #### [address] Protein (U) [Mass/Vol] 30 mg/dL High Negative [facility] Comment on above: Order Comment: Name Collection Type:: Clean-Voided Midstream Performed By: #### C UU, ADDONUAPLUS #### [address] RBC,Urine 10-19 High 0-4 [facility] Comment on above: Order Comment: Name Collection Type:: Clean-Voided Midstream Performed By: #### C UU, ADDONUAPLUS #### [address] Specificy [place],Urine > 1.050 High 1.001-1.030 [facility] Comment on above: Order Comment: Name Collection Type:: Clean-Voided Midstream Performed By: #### C UU, ADDONUAPLUS #### [address] Squamous Epithelial Cell,Urine 1-2 Normal 0-2 [facility] Comment on above: Order Comment: Name Collection Type:: Clean-Voided Midstream Performed By: #### C UU, ADDONUAPLUS #### [address] Urobilinogen,Urine Normal Normal Normal [facility] Comment on above: Order Comment: Name Collection Type:: Clean-Voided Midstream Performed By: #### C UU, ADDONUAPLUS #### [address] [place] [address] [facility] [[email or web address]] WBC,Urine 20-49 High 0-4 [facility] Comment on above: Order Comment: Name Collection Type:: Clean-Voided Midstream Performed By: #### C LIZET MARIE #### [place] [id number] [facility] [[email or web address]] ECG 12 lead ECGon 01-09-2023 ECG 12 lead ECG [facility] Main [place] [address] [place] [address] Electrocardiograph Report Signed Patient: Georgia Junior MR#: [id number] : 1965 Acct:[id number] Age/Sex: 57 / F ADM Date: 01/09/23 Loc: ER Room: Type: [facility] ER Attending Dr: Ordering Provider: Terrence Doe DO Date of Service: 01/09/23 ECG/ECG 12 lead ECG: Abdominal Pain Copies to: Test Reason : Blood Pressure : / mmHG Vent. Rate : 059 BPM Atrial Rate : 059 BPM P-R Int : 166 ms QRS Dur : 082 ms QT Int : 434 ms P-R-T Axes : 048 063 056 degrees QTc Int : 429 ms Sinus bradycardia Confirmed by Terrence Doe DO ([id number]) on 01/09/2023 9:40:25 PM Referred By: Electronically Signed By:Terrence Doe DO Transcribed By: MUS Signed By Terrence Doe DO [id number] Normal [facility] Eosinophils Auto (Bld) [#/Vo l]Ordered By: Terrence Doe on 01-09-2023 Eosinophils (Bld) [#/Vol] 0.3 10*3/uL 0.0-0.45 [facility] Eosinophils/100 WBC Auto (Bl d)Ordered By: Terrence Doe on 01-09-2023 Eosinophils/100 WBC (Bld) 1.9 % . [facility] Erythrocyte distribution wid th Auto (RBC) [Ratio]Ordered By: Terrence Doe on 01-09-2023 Erythrocyte distribution width (RBC) [Ratio] 14.6 % 11.9-15.3 [facility] Globulin Calc (S) [Mass/Vol] Ordered By: Terrence Doe on 01-09-2023 Globulin (S) [Mass/Vol] 2.9 g/dL F [facility] Glucose [Mass/volume] in Ser um or PlasmaOrdered By: Terrence Doe on 01-09-2023 Glucose [Mass/Vol] 121 mg/dL 70-100 [facility] Comment on above: ADA recommended refe rence rangeRandom Glucose Reference Range is dependent on time and content of last meal. Glucose of more than 200 mg/dL in a nonstressed, ambulatory subject supports the diagnosis of Diabetes Mellitus. Hematocrit Auto (Bld) [Volum e fraction]Ordered By: Terrence Doe on 01-09-2023 Hematocrit (Bld) [Volume fraction] 38.2 % 34.0-46.4 [facility] Hemoglobin [Mass/volume] in BloodOrdered By: Terrence Doe on 01-09-2023 Hemoglobin (Bld) [Mass/Vol] 12.4 g/dL 11.8-15.4 [facility] Hepatic Panelon 01-09-2023 Albumin [Mass/Vol] 4.0 g/dL Normal 3.5-5.7 [facility] Comment on above: Performed By: #### C BC, CMP, LDLD, LIPID #### [facility] [address] Albumin/Globulin [Mass ratio] 1.4 {ratio} Normal [facility] Comment on above: Performed By: #### C BC, CMP, LDLD, LIPID #### [facility] [address] [place] [id number] [place] ALP [Catalytic activity/Vol] 120 U/L High 34-104 [facility] Comment on above: Performed By: #### C BC, CMP, LDLD, LIPID #### [facility] [address] [place] [id number] [place] ALT [Catalytic activity/Vol] 40 U/L Normal 7-52 [facility] Comment on above: Performed By: #### C BC, CMP, LDLD, LIPID #### [facility] [address] [place] [address] AST [Catalytic activity/Vol] 18 U/L Normal 13-39 [facility] Comment on above: Performed By: #### C BC, CMP, LDLD, LIPID #### [address] Bilirubin [Mass/Vol] 0.3 mg/dL Normal 0.3-1.0 [facility] Comment on above: Performed By: #### C BC, CMP, LDLD, LIPID #### [address] Bilirubin,Indirect 0.2 mg/dL Normal [facility] Comment on above: Performed By: #### C BC, CMP, LDLD, LIPID #### [address] Bilirubin.indirect [Mass/Vol] 0.10 mg/dL Normal 0.03-0.18 [facility] Comment on above: Performed By: #### C BC, CMP, LDLD, LIPID #### [address] Globulin (S) [Mass/Vol] 2.9 g/dL Normal F [facility] Comment on above: Performed By: #### C BC, CMP, LDLD, LIPID #### [address] Protein [Mass/Vol] 6.9 g/dL Normal 6.4-8.9 [facility] Comment on above: Performed By: #### C BC, CMP, LDLD, LIPID #### [address] Ketones Auto test strip (U) [Mass/Vol]Ordered By: Terrence Doe on 01-09-2023 Ketones (U) [Mass/Vol] Negative Negative [facility] Laboratory - UrinalysisOrder ed By: Terrence Doe on 01-09-2023 Hyaline casts LM Ql (Urine sed) 0-8 [LPF] 0-8 [facility] Lactate [Moles/volume] in Se rum or PlasmaOrdered By: Terrence Doe on 01-09-2023 Lactate [Moles/Vol] 0.6 mmol/L 0.5-2.2 [facility] Lactic Acidon 01-09-2023 Lactate [Moles/Vol] 0.6 mmol/L Normal 0.5-2.2 [facility] [place] Comment on above: Result Comment: PERF ORMED BY: [facility] [address] [place] [address] PATHOLOGIST TOOL TENDER DIANA CAMPO M.D. Performed By: #### C BC, CMP, LDLD, LIPID #### [facility] [address] [place] [address] [place] Leukocytes [#/volume] correc gabriel for nucleated erythrocytes in Blood by Automated counOrdered By: Terrence Doe on 01-09-2023 WBC corrected for nucl RBC Auto (Bld) [#/Vol] 13.7 10*3/uL 3.8-11.6 [facility] Lipaseon 01-09-2023 Lipase [Catalytic activity/Vol] 53.0 U/L Normal 11.0-82.0 [facility] Comment on above: Result Comment: PERF ORMED BY: [facility] [address] [place] [address] PATHOLOGIST TOOL TENDER DIANA CAMPO M.D. Performed By: #### C BC, CMP, LDLD, LIPID #### [facility] [address] [place] [address] [place] Lipase [Enzymatic activity/v olume] in Serum or PlasmaOrdered By: Terrence Doe on 01-09-2023 Lipase [Catalytic activity/Vol] 53.0 U/L 11.0-82.0 [facility] Lymphocytes Auto (Bld) [#/Vo l]Ordered By: Terrence Doe on 01-09-2023 Lymphocytes (Bld) [#/Vol] 2.3 10*3/uL 1.00-4.8 [facility] Lymphocytes/100 WBC Auto (Bl d)Ordered By: Terrence Doe on 01-09-2023 Lymphocytes/100 WBC (Bld) 17.0 % . [facility] MCH Auto (RBC) [Entitic mass ]Ordered By: Terrence Doe on 01-09-2023 MCH (RBC) [Entitic mass] 26.9 pg 24.7-34.3 [facility] MCHC Auto (RBC) [Mass/Vol]Or dered By: Terrence Doe on 01-09-2023 MCHC (RBC) [Mass/Vol] 32.4 g/dL 32.0-35.0 [facility] MCV Auto (RBC) [Entitic vol] Ordered By: Terrence Doe on 01-09-2023 MCV (RBC) [Entitic vol] 83.0 fL 80-100 F [facility] Monocyte distribution width [Entitic volume] in Blood by AutomatedOrdered By: Terrence Doe on 01-09-2023 Monocyte distribution width Auto (Bld) [Entitic vol] 17.03 % 0.00-20.00 [facility] Monocytes Auto (Bld) [#/Vol] Ordered By: Terrence Doe on 01-09-2023 Monocytes (Bld) [#/Vol] 0.9 10*3/uL 0.0-0.8 [facility] Monocytes/100 WBC Auto (Bld) Ordered By: Terrence Doe on 01-09-2023 Monocytes/100 WBC (Bld) 6.6 % . [facility] Neutrophils Auto (Bld) [#/Vo l]Ordered By: Terrence Doe on 01-09-2023 Neutrophils (Bld) [#/Vol] 10.2 10*3/uL 1.8-7.7 [facility] Neutrophils/100 WBC Auto (Bl d)Ordered By: Terrence Doe on 01-09-2023 Neutrophils/100 WBC (Bld) 74.0 % . [facility] Nitrite Test strip Ql (U)Ord ered By: Terrence Doe on 01-09-2023 Nitrite Ql (U) Negative Negative [facility] No Panel InformationOrdered By: Terrence Doe on 01-09-2023 Estimated GFR (CKD-EPI) > 60.0 mL/Min [facility] Creatinine Clearance (Chem 85.50 [facility] Nucleated erythrocytes [Pres ence] in Blood by Automated countOrdered By: Terrence Doe on 01-09-2023 Nucleated RBC Auto Ql (Bld) 0.1 /100{WBC} 0-0.5 [facility] Platelet mean volume Auto (B ld) [Entitic vol]Ordered By: Terrence Doe on 01-09-2023 Platelet mean volume (Bld) [Entitic vol] 7.6 fL 6.3-10.7 [facility] Platelets Auto (Bld) [#/Vol] Ordered By: Terrence Doe on 01-09-2023 Platelets (Bld) [#/Vol] 359 10*3/uL 150-450 [facility] Potassium [Moles/volume] in Serum or PlasmaOrdered By: Terrence Doe on 01-09-2023 Potassium [Moles/Vol] 3.7 mmol/L 3.5-5.1 [facility] Protein Auto test strip (U) [Mass/Vol]Ordered By: Terrence Doe on 01-09-2023 Protein (U) [Mass/Vol] 30 mg/dL Negative [facility] Protein [Mass/volume] in Ser um or PlasmaOrdered By: Terrence Doe on 01-09-2023 Protein [Mass/Vol] 6.9 g/dL 6.4-8.9 [facility] RBC Auto (Bld) [#/Vol]Ordere d By: Terrence Doe on 01-09-2023 RBC (Bld) [#/Vol] 4.60 10*6/uL 3.60-5.00 [facility] Serum or plasma albumin/glob ulin mass ratioOrdered By: Terrence Doe on 01-09-2023 Albumin/Globulin [Mass ratio] 1.4 {ratio} [facility] Serum or plasma anion gap de terminationOrdered By: Terrence Doe on 01-09-2023 Anion gap [Moles/Vol] 11.4 mmol/L 6.0-15.0 [facility] Serum or plasma non-glucuron idated bilirubin measurement (mass/volume)Ordered By: Terrence Doe on 01-09-2023 Bilirubin.indirect [Mass/Vol] 0.2 mg/dL [facility] Sodium [Moles/volume] in Ser um or PlasmaOrdered By: Terrence Doe on 01-09-2023 Sodium [Moles/Vol] 141 mmol/L 136-145 [facility] Specific gravity Auto test s trip (U) [Rel density]Ordered By: Terrence Doe on 01-09-2023 Specific gravity (U) [Rel density] > 1.050 1.001-1.030 [facility] Squamous epithelial cells de tection in urine sediment by light microscopyOrdered By: Terrence Doe on 01-09-2023 Epithelial cells.squamous LM Ql (Urine sed) 1-2 [HPF] 0-2 [facility] Urea nitrogen [Mass/volume] in Serum or PlasmaOrdered By: Terrence Doe on 01-09-2023 Urea nitrogen [Mass/Vol] 11 mg/dL 7-25 [facility] Urine Cultureon 01-09-2023 Bacteria identified Cx Nom (U) ORGANISM: Enterococcus faecalis (O:ENTFAC) [place] Count >100,000 Aerobic KAYLEEN Charge (PCMIC38) -- SUSCEPTIBILITY - ORGANISM: O:ENTFAC ANTIBIOTIC INTERPRETATION KAYLEEN Ampicillin S <2 Ciprofloxacin S <1 Daptomycin S <0.5 Levofloxacin S <1 Linezolid S 2 Nitrofurantoin S <32 Penicillin S 2 Tetracycline R >8 Vancomycin S 1 S = SUSCEPTIBLE I = INTERMEDIATE R = RESISTANT BLANK = DATA NOT AVAILABLE, OR DRUG NOT ADVISABLE OR TESTED R* = RESISTANCE DUE TO EXTENDED SPECTRUM BETA-LACTAMASES ESBL = EXTENDED SPECTRUM BETA-LACTAMASE TFG = THYMIDINE-DEPENDENT STRAIN LAITH = BETA-LACTAMASE POSITIVE IB = INDUCIBLE BETA-LACTAMASE. APPEARS IN PLACE OF 'S' WITH SPECIES KNOWN TO POSSESS INDUCIBLE BETA-LACTAMASES. POTENTIALLY THEY MAY BECOME RESISTANT TO ALL B-LACTAM DRUGS. PERFORMED BY: [facility] [address] [facility] [place] [address] PATHOLOGIST TOOL TENDER DIANA CAMPO M.D. Normal [facility] Comment on above: Performed By: #### C UU, ADDONUAPLUS #### [facility] [address] Urine bacteria detection by automated methodOrdered By: Terrence Doe on 01-09-2023 Bacteria Auto Ql (U) None seen None Seen [facility] Urine clarity by refractomet ry automatedOrdered By: Terrence Doe on 01-09-2023 Clarity Refractometry automated (U) Clear Clear [facility] Urine glucose measurement by automated test strip (mass/volume)Ordered By: Terrence Doe on 01-09-2023 Glucose Auto test strip (U) [Mass/Vol] Normal mg/dL Normal [facility] Urine hemoglobin detection b y automated test stripOrdered By: Terrence Doe on 01-09-2023 Hemoglobin Auto test strip Ql (U) 1+ Negative [facility] Urine leukocyte esterase det ection by automated test stripOrdered By: Terrence Doe on 01-09-2023 Leukocyte esterase Auto test strip Ql (U) 1+ Negative [facility] Urobilinogen Auto test strip (U) [Mass/Vol]Ordered By: Terrence Doe on 01-09-2023 Urobilinogen (U) [Mass/Vol] Normal mg/dL Normal [facility] WBC Auto (Bld) [#/Vol]Ordere d By: Terrence Doe on 01-09-2023 WBC (Bld) [#/Vol] 13.7 10*3/uL 3.8-11.6 [facility] pH Auto test strip (U)Ordere d By: Terrence Doe on 01-09-2023 pH (U) 5.5 [pH] 5.0-9.0 [facility] Aerobic Cultureon 12-31-2022 Aerobic Culture Comment comp C S of intrauterine pus ORGANISM: Escherichia coli (O:ESCCOL) Quantity of Growth Heavy Growth Comment comp C S of intrauterine pus No Anaerobes Isolated 3 Days Comment comp C S of intrauterine pus Gram Stain Result 1+ White Blood Cells No Bacteria Seen Aerobic KAYLEEN Charge (NMIC56) -- SUSCEPTIBILITY - ORGANISM: O:ESCCOL ANTIBIOTIC INTERPRETATION KAYLEEN Amikacin S <16 Amoxacillin/K Clavulanate S <8 Ampicillin R >16 Ampicillin/Sulbactam I 1616/8 Aztreonam S <4 Cefazolin S 4 Cefepime S <2 Ceftazidime S <1 Ceftazidime/Avibactam S <4 Ceftolozane/Tazobactam S <2 Ceftriaxone S <1 Cefuroxime S <4 Ciprofloxacin I 0.5 Ertapenem S <0.5 Gentamicin R >8 Levofloxacin S <0.5 Meropenem S <1 Meropenem/Vaborbactam S <2 Piperacillin/Tazobactam S <8 Tetracycline S <4 Tigecycline S <2 Tobramycin R >8 Trimethoprim/Sulfametho xazole S <0.5 S = SUSCEPTIBLE I = INTERMEDIATE R = RESISTANT BLANK = DATA NOT AVAILABLE, OR DRUG NOT ADVISABLE OR TESTED R* = RESISTANCE DUE TO EXTENDED SPECTRUM BETA-LACTAMASES ESBL = EXTENDED SPECTRUM BETA-LACTAMASE TFG = THYMIDINE-DEPENDENT STRAIN LAITH = BETA-LACTAMASE POSITIVE IB = INDUCIBLE BETA-LACTAMASE. APPEARS IN PLACE OF 'S' WITH SPECIES KNOWN TO POSSESS INDUCIBLE BETA-LACTAMASES. POTENTIALLY THEY MAY BECOME RESISTANT TO ALL B-LACTAM DRUGS. PERFORMED BY: [place] [address] PATHOLOGIST TOOL TENDER DIANA CAMPO M.D. [facility] Comment on above: Performed By: #### C BC, CMP, LDLD, LIPID #### [place] [address] [place] Anaerobic cultureOrdered By: Brando Núñez on 12-31-2022 Bacteria identified Anaer cx Nom (Unsp spec) No Anaerobes Isolated 3 Days [facility] Bacteria identified Aer cx N om (Unsp spec)Ordered By: Brando Núñez on 12-31-2022 Aerobic Culture Escherichia coli [facility] ECG 12 lead ECGon 12-31-2022 ECG 12 lead ECG [facility] Main [place] [address] [place] [address] Electrocardiograph Report Signed Patient: Georgia Junior MR#: [id number] 278 : 1965 Acct:[id number] Age/Sex: 57 / F ADM Date: 12/31/22 Loc: [place] Room: Type: [facility] Attending Dr: Brando Núñez DO Ordering Provider: Emerson Osuna MD Date of Service: 12/31/22 ECG/ECG 12 lead ECG: OR Copies to: Test Reason : Blood Pressure : / mmHG Vent. Rate : 081 BPM Atrial Rate : 081 BPM P-R Int : 186 ms QRS Dur : 082 ms QT Int : 404 ms P-R-T Axes : 059 040 053 degrees QTc Int : 469 ms Normal sinus rhythm Normal ECG When compared with ECG of 29-AUG-2022 08:32, No significant change was found Confirmed by SHERWIN OVALLE MD ([id number]) on 12/31/2022 8:50:23 PM Referred By: Electronically Signed By:SHERWIN OVALLE MD Transcribed By: MUS Signed By Sherwin Ovalle MD 0 12/31/222049 Normal [facility] Gram stain for investigation of transfusion reactionOrdered By: Brando Núñez on 12-31-2022 Microscopic observation Gram stain Nom (Unsp spec) [facility] Ernesto 12-31-2022 L --- Specimen: [id number] Received: 12/31/22 Status: SONAL Moise Num: [id number] Spec Type: Surgical Subm Dr: Brando Núñez DO Tissues: A Uterus w/ or w/o tubes ovaries except neoplastic or prolap (CERVIX, DIEGO TU Procedures: , Gross/Micro L5 Age/ Patient Sex Location Account Attending Physician [place] Juniro 57/F [place] [id number] Brando Núñez DO SPEC NUM: [id number] RECD: 12/31/22 STATUS: SONAL MOISE NUM: [id number] LAURA: 12/31/[address] [facility] [address]: Brando Núñez DO ENTERED: 12/31/22 [facility] DR: [place] TYPE: Surgical DEPT: S ORDERED: HE/, Gross/Micro L5 ORDERED: HE, Gross/Micro L5 Supplemental Report Addendum 1 Entered: 03/02/232442 This case [facility] to [facility] with their interpretation as follows FINAL DIAGNOSIS Uterus with cervix, right and left fallopian tubes, and ovaries, hysterectomy and bilateral salpingo-oophorectomy: - Cervix: Inflammation and reactive changes - Endometrium: chronic endometritis and scattered foci of ulceration and metaplastic changes, see comment. - Myometrium: Small leiomyoma. - Serosa: No significant pathologic abnormality. - Bilateral ovaries: No significant pathologic abnormality. - Bilateral fallopian tubes: No significant pathologic abnormality. Please see [facility] report ( [id number] ) for further details Addendum Signed (signature on file) Oscar Sultana MD 03/04/23 1446 Specimen: [id number] Received: 12/31/22 Status: SONAL Geraldo Num: [id number] Spec Type: Surgical Subm Dr: Brnado Núñez DO Tissues: A Uterus w/ or w/o tubes ovaries except neoplastic or prolap (CERVIX, DIEGO TU Procedures: , Gross/Micro L5 Patient: Georgia Junior [id number] (Continued) Specimen: Received: 12/31/22 (Continued) Signed (signature on file) Estevan Perez MD (Michelle) 01/01/23 1625 Specimen: Received: 12/31/22 Status: SONAL Moise Num: [id number] Spec Type: Surgical Subm Dr: Brando Núñez DO Tissues: A Uterus w/ or w/o tubes ovaries except neoplastic or prolap (CERVIX, DIEGO TU Procedures: , Gross/Micro L5 Patient: Georgia Junior [id number] (Continued) Specimen: Received: 12/31/22 (Continued) Pathological Diagnosis Uterus, cervix, bilateral tubes and ovaries, total hysterectomy and bilateral salpingo- oophorectomy: Cervix with chronic cervicitis, small epithelial cyst, and 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 Lower uterine segment with mucosa ulceration, acute chronic inflammation and reactive epithelial changes. Endometrium with mucosa ulceration, acute chronic inflammation, intraepithelial and intraluminal neutrophils. Inactive endometrial glands with tubal metaplasia, reactive epithelial changes and focal glandular crowding. See Note Small detached fragment of endometrium with inflammation and focal crowded glands. See Note Two ovaries with corpus albicans, epithelial inclusion cysts, and dilation of lymphatic channels. Two fallopian tubes with benign paratubal cysts. Note: No endometrial atypia is seen. Small fragment of detached tangentially sectioned endometrium with acute chronic inflammation, intraluminal neutrophils, and focal crowded glands in the stroma, favor benign. The case will be sent out for extramural consultation, the result will follow in supplemental report. Clinical Information PMB, LGFIL, abnormal Pap, grams 60 Gross Description Received in formalin labeled with the patient's name, number and uterus, cervix, bilateral tubes and ovaries is a 64 g, 7.5 x 5.0 x 2.5 cm uterus with attached bilateral adnexa. The uterine serosa is griffith-pink. The exocervix is griffith-pink with a central 0.7 cm patent os. The endocervix is griffith red, glistening. The endometrium is griffith-red, smooth to granular, averaging 0.2 cm in thi (more content not included)... Normal [facility] Automated basophil %Ordered By: Brando Núñez on 12-17-2022 Basophils/100 WBC (Bld) 0.4 % Normal . [facility] Comment on above: Performed By: #### C BC, CMP, LDLD, LIPID #### [facility] [address] Automated basophil countOrde red By: Brando Núñez on 12-17-2022 Basophils (Bld) [#/Vol] 0.0 10*3/uL Normal 0.0-0.2 [facility] Comment on above: Result Comment: PERF ORMED BY: [facility] [address] [place] [address] PATHOLOGIST TOOL TENDER DIANA CAMPO M.D. Performed By: #### C BC, CMP, LDLD, LIPID #### [facility] [address] Automated blood monocyte cou ntOrdered By: Brando Núñez on 12-17-2022 Monocytes (Bld) [#/Vol] 0.7 10*3/uL Normal 0.0-0.8 [facility] Comment on above: Performed By: #### C BC, CMP, LDLD, LIPID #### [facility] [address] Automated eosinophil %Ordere d By: Brando Núñez on 12-17-2022 Eosinophils/100 WBC (Bld) 1.8 % Normal . [facility] Comment on above: Performed By: #### C BC, CMP, LDLD, LIPID #### [address] Automated eosinophil countOr dered By: Brando Núñez on 12-17-2022 Eosinophils (Bld) [#/Vol] 0.2 10*3/uL Normal 0.0-0.45 [facility] Comment on above: Performed By: #### C BC, CMP, LDLD, LIPID #### [address] Automated monocyte %Ordered By: Brando Núñez on 12-17-2022 Monocytes/100 WBC (Bld) 6.1 % Normal . [facility] Comment on above: Performed By: #### C BC, CMP, LDLD, LIPID #### [address] Automated neutrophil %Ordere d By: Brando Núñez on 12-17-2022 Neutrophils/100 WBC (Bld) 72.0 % Normal . [facility] Comment on above: Performed By: #### C BC, CMP, LDLD, LIPID #### [address] Basic Metabolic Panelon GFR/1.73 sq M.predicted MDRD (S/P/Bld) [Vol rate/Area] mL/min/{1.73_m2} Normal [facility] Comment on above: Performed By: #### C BC, CMP, LDLD, LIPID #### [address] Calcium [Mass/volume] in Ser um or PlasmaOrdered By: Brando Núñez on 12-17-2022 Calcium [Mass/Vol] 9.0 mg/dL Normal 8.6-10.3 [facility] Comment on above: Result Comment: PERF ORMED BY: [place] [address] PATHOLOGIST TOOL TENDER DIANA CAMPO M.D. Performed By: #### C BC, CMP, LDLD, LIPID #### [facility] [address] Carbon dioxide, total [Moles /volume] in Serum or PlasmaOrdered By: Brando Núñez on 12-17-2022 CO2 [Moles/Vol] 23.5 mmol/L Normal 21.0-31.0 [facility] Comment on above: Performed By: #### C BC, CMP, LDLD, LIPID #### [facility] [address] [place] [address] [place] Chloride [Moles/volume] in S fallon or PlasmaOrdered By: Brando Núñez on 12-17-2022 Chloride [Moles/Vol] 109 mmol/L High 98-107 [facility] Comment on above: Performed By: #### C BC, CMP, LDLD, LIPID #### [address] Complete Blood Count Auto Di ffon 12-17-2022 Mean Corpuscular HGB Conc 32.1 g/dL Normal 32.0-35.0 [facility] Comment on above: Performed By: #### C BC, CMP, LDLD, LIPID #### [facility] [address] [place] [address] [place] NRBC% 0.2 /100{WBC} Normal 0-0.5 [facility] Comment on above: Performed By: #### C BC, CMP, LDLD, LIPID #### [address] Creatinine [Mass/volume] in Serum or PlasmaOrdered By: Brando Núñez on 12-17-2022 Creatinine [Mass/Vol] 0.82 mg/dL Normal 0.60-1.20 [facility] Comment on above: Performed By: #### C BC, CMP, LDLD, LIPID #### [facility] [address] Erythrocyte distribution wid th [Ratio] by Automated countOrdered By: Brando Núñez on 12-17-2022 Erythrocyte distribution width (RBC) [Ratio] 14.7 % Normal 11.9-15.3 [facility] Comment on above: Performed By: #### C BC, CMP, LDLD, LIPID #### [address] Erythrocytes [#/volume] in B lood by Automated countOrdered By: Brando Núñez on 12-17-2022 RBC (Bld) [#/Vol] 4.36 10*6/uL Normal 3.60-5.00 [facility] Comment on above: Performed By: #### C BC, CMP, LDLD, LIPID #### [address] Glucose [Mass/volume] in Ser um or PlasmaOrdered By: Brando Núñez on 12-17-2022 Glucose [Mass/Vol] 100 mg/dL Normal 70-100 [facility] Comment on above: ADA recommended refe rence rangeRandom Glucose Reference Range is dependent on time and content of last meal. Glucose of more than 200 mg/dL in a nonstressed, ambulatory subject supports the diagnosis of Diabetes Mellitus. Result Comment: [place] om Glucose Reference Range is dependent on time and content of last meal. Glucose of more than 200 mg/dL in a nonstressed, ambulatory subject supports the diagnosis of Diabetes Mellitus. ADA recommended reference range Performed By: #### C BC, CMP, LDLD, LIPID #### [address] Hematocrit [Volume Fraction] of Blood by Automated countOrdered By: Brando Núñez on 12-17-2022 Hematocrit (Bld) [Volume fraction] 36.8 % Normal 34.0-46.4 [facility] Comment on above: Performed By: #### C BC, CMP, LDLD, LIPID #### [facility] [address] Hemoglobin [Mass/volume] in BloodOrdered By: Brando Núñez on 12-17-2022 Hemoglobin (Bld) [Mass/Vol] 11.8 g/dL Normal 11.8-15.4 [facility] Comment on above: Performed By: #### C BC, CMP, LDLD, LIPID #### [facility] [address] [place] [address] Leukocytes [#/volume] correc gabriel for nucleated erythrocytes in Blood by Automated counOrdered By: Brando Núñez on 12-17-2022 WBC corrected for nucl RBC Auto (Bld) [#/Vol] 11.6 10*3/uL 3.8-11.6 [facility] Leukocytes [#/volume] in Blo od by Automated countOrdered By: Brando Núñez on 12-17-2022 WBC (Bld) [#/Vol] 11.6 10*3/uL Normal 3.8-11.6 [facility] [place] Comment on above: Performed By: #### C BC, CMP, LDLD, LIPID #### [facility] [address] [place] [address] [place] Lymphocytes [#/volume] in Bl ood by Automated countOrdered By: Brando Núñez on 12-17-2022 Lymphocytes (Bld) [#/Vol] 2.3 10*3/uL Normal 1.00-4.8 [facility] Comment on above: Performed By: #### C BC, CMP, LDLD, LIPID #### [facility] [address] [place] [address] [place] Lymphocytes/100 leukocytes i n Blood by Automated countOrdered By: Brando Núñez on 12-17-2022 Lymphocytes/100 WBC (Bld) 19.7 % Normal . [facility] Comment on above: Performed By: #### C BC, CMP, LDLD, LIPID #### [facility] [address] [place] [address] [place] MCH [Entitic mass] by Automa gabriel countOrdered By: Brando Núñez on 12-17-2022 MCH (RBC) [Entitic mass] 27.1 pg Normal 24.7-34.3 [facility] Comment on above: Performed By: #### C BC, CMP, LDLD, LIPID #### [facility] [address] [place] [address] MCHC Auto (RBC) [Mass/Vol]Or dered By: Brando Núñez on 12-17-2022 MCHC (RBC) [Mass/Vol] 32.1 g/dL 32.0-35.0 [facility] MCV [Entitic volume] by Auto mated countOrdered By: Brando Núñez on 12-17-2022 MCV (RBC) [Entitic vol] 84.3 fL Normal 80-100 [facility] Comment on above: Performed By: #### C BC, CMP, LDLD, LIPID #### [address] Neutrophils [#/volume] in Bl ood by Automated countOrdered By: Brando Núñez on 12-17-2022 Neutrophils (Bld) [#/Vol] 8.4 10*3/uL High 1.8-7.7 [facility] Comment on above: Performed By: #### C BC, CMP, LDLD, LIPID #### [facility] [address] [place] [address] No Panel InformationOrdered By: Brando Núñez on 12-17-2022 Estimated GFR (CKD-EPI) > 60.0 mL/Min [facility] Creatinine Clearance (Chem N/A [facility] Nucleated erythrocytes [Pres ence] in Blood by Automated countOrdered By: Brando Núñez on 12-17-2022 Nucleated RBC Auto Ql (Bld) 0.2 /100{WBC} 0-0.5 [facility] Platelet mean volume [Entiti c volume] in Blood by Automated countOrdered By: Brando Núñez on 12-17-2022 Platelet mean volume (Bld) [Entitic vol] 7.9 fL Normal 6.3-10.7 [facility] Comment on above: Performed By: #### C BC, CMP, LDLD, LIPID #### [facility] [address] [place] [address] Platelets [#/volume] in Bloo d by Automated countOrdered By: Brando Núñez on 12-17-2022 Platelets (Bld) [#/Vol] 309 10*3/uL Normal 150-450 [facility] Comment on above: Performed By: #### C BC, CMP, LDLD, LIPID #### [facility] [address] Potassium [Moles/volume] in Serum or PlasmaOrdered By: Brando Núñez on 12-17-2022 Potassium [Moles/Vol] 4.2 mmol/L Normal 3.5-5.1 [facility] Comment on above: Performed By: #### C BC, CMP, LDLD, LIPID #### [address] Serum or plasma anion gap de terminationOrdered By: Brando Núñez on 12-17-2022 Anion gap [Moles/Vol] 11.7 mmol/L Normal 6.0-15.0 [facility] Comment on above: Performed By: #### C BC, CMP, LDLD, LIPID #### [address] Sodium [Moles/volume] in Ser um or PlasmaOrdered By: Brando Núñez on 12-17-2022 Sodium [Moles/Vol] 140 mmol/L Normal 136-145 [facility] Comment on above: Performed By: #### C BC, CMP, LDLD, LIPID #### [place] [address] [place] Urea nitrogen [Mass/volume] in Serum or PlasmaOrdered By: Brando Núñez on 12-17-2022 Urea nitrogen [Mass/Vol] 10 mg/dL Normal 7-25 [facility] Comment on above: Performed By: #### C BC, CMP, LDLD, LIPID #### [address] MR knee RT wo conon 11-22-19 MR knee RT wo con [facility] [place] [address] [place] [address] MRI Report Signed Patient: Georgia Junior MR#: [id number] 278 : 1965 Acct:[id number] Age/Sex: 57 / F ADM Date: 11/21/22 Loc: [facility] Room: Type: [facility] Attending Dr: Roderick Trejo DO Copies to: Roderick Trejo DO Ordering Provider: Roderick Trejo DO Date of Service: 11/21/22 MR/MR knee RT wo con: NONDISPLACED FX MEDIAL CONDYLE EXAMINATION: MRI OF THE RIGHT KNEE CLINICAL DATA: Medial right knee pain. COMPARISON: CT right knee 09/03/2022 TECHNIQUE: Multiecho, multiplanar imaging was performed with use of an extremity coil. No contrast was administered. FINDINGS: Small joint effusion. Mild soft tissue swelling. Small Boss's cyst. Muscle groups are grossly unremarkable. Bone contusion is seen involving the medial condyle of the femur and medial tibial plateau without fracture line. Quadriceps tendon appears intact. Patellar tendon and retinaculum appear intact. Articular cartilage appears intact. ACL cyst is noted. The ACL appears unremarkable. Tear posterior horn medial meniscus. Lateral meniscus appears unremarkable. MCL appears intact. LCL complex appears intact. . MR/MR knee RT wo con IMPRESSION: BONE CONTUSION INVOLVING THE MEDIAL CONDYLE OF THE FEMUR WELL THE MEDIAL TIBIAL PLATEAU WITH ASSOCIATED TEAR INVOLVING THE POSTERIOR HORN OF THE MEDIAL MENISCUS. NO FRACTURE IS SEEN ACL CYST. SMALL JOINT EFFUSION WITH MILD SOFT TISSUE SWELLING AND SMALL BOSS'S CYST.. Impression dictated by: Ector Pal Jr., D.O.11/21/2022 12:55 PM Dictation Location: [place] [address] Transcribed By: [facility] 11/21/22 1255 Dictated By: Ector Pal Jr, DO 11/21/22 1240 Signed By: 11/21/22 1255 [facility] Coding Summary.on 11-17-2022 Coding Summary. [id number] Gh0 bWw+PGhlYWQ+SI6WUQJwR26 rmGDohY2TH4pHSG8IYSOZPN ECZG3JCW0zaWE1RPgiV1Kzw iAv AywcqELsVP01RQe7TBT3fSr rSVrhoG1ghPFsU4l9DrXaVV 20zB16QDhvJENeUkP8AtHfq jsgbWFy Z6reGtTjpOYuGmo+PHRhYmx lIHdpZHRoPScxMDAlJyBzdH ddRS4tAa1zNBYuTOCgoAtnk HNlOiBj r5fwGXTsWQzxNV2iwXziP4X vyDB7BPRrq9p9Kv57xZB+PH OdXWI0hZuhQZjun012YbFkw 1agSOX7 uSTbMHdgBBL4B58mj3X0GZQ ySYDiYEH5cQD1wH0erIkfgt ihP5KtoFNsUqL7TGB2xCJeq M8ixIik xoshrV4oEdj+R72ZOG5RYJM OCP9HCci3L1GyDfvqwXI+PC 06HKJfRQ68wZFfcWZvg1cna Hi7VpAh QNOiNUT6hVvoEDqye0LsTAD xP66qjQYhf3N2NAZjsXoddU DpHhUtwRI2vH5fAFnngidae 2hvdzsn Rcdfy8ghwx22mI26W39xOFo hRSUuWSC1ZLSuTKEqhOfidw 2zkF1yDn8+EFxsv0lpc9mnb Fk0SuHy CPDyueGysKjbBMT6m2EtRu6 7G5SkzAlwp1TlOkw3hy29vR Bvm1R7jTD9LRqeZMAthL7hH WxlZnQ6 VUKbItBjrJ36mVYyTCieVi0 cfSaziFgpYT5uJKHjkudhBR JyvV0uHXIlrICugXmiHI0uI TBpbjtm f299CrQlLWE3JWRuyVSfO2G ecK2cJkYsWCDtVQQsA0FieC TzIEwoT460PZnmTvN2JXKfo bKpB1Gu KNEikYomTtJ1n9E9Op5Ez5N ofrlxRWY1LXscRANyZiT3Ni KpWdQ2K1FpVvg2UZPpsOxeI T3vJ7Or FOVcvgsvnztqjPI7GPFsQEN dzV53tSEaEZvsBi7ar0R2i6 90JVOmUYPpbQ20Eq8xdIbsM TBwdCBU qL4yztvxq5wujakvHrXzCPS oUJi3DCf0IBRigPuiGzKgRY U8GqS9IZX6lPMesA5zpDlfl pvspB1s Oyc+O15jgW6iGDN9OKK3qms cBWPzohClZX00AY53I1VwJb wvdGFibGU+PGRpdiBzdHlsZ C3bJrVu p6wdu1ZxBUdxJ7IxMZJnIPq gYgz0BNFzFEW1oWA0kZ8cEO PfKPews1V3xEQ5U5CdqxGjp r9xr1bw LYUiXQsxP65kmSFul5I9QZV lbQP7ELJadStrJrIbvE05Do c+SCGruJeaz2VeMjgum6tcp 5cgfEp4 InEhWQNtcaTixLwtSBN5c4A yKe80S41pZOjcMQLlBVYoQK PoHDMluBniil0jjA4rKo3+P GNvbCB3 aZS2qN9sKQVbNdD2TVplZ21 0MrJfiUHuYpfva3ign5svhJ d8RhDzWUKjtfKwjZzqNSV0r 1GyFs55 I22oAPmzZTToDBTpYBRzYQZ zfTxhgp0spZ1xLb0+PC9jb2 sbqx65hR38mUY+LVUkCQF6s WxlPSdw AJYzxE6bJPsfKoI4NBBjUjQ yfY25oRVlQRmeAp0quMamjM dePG3zCYNrapjtg971OkXxd 2xkIDEw oRQwKPmdGWB5R93xn9G4UMK gMAXkGKC7xEG1iE7deQvhht ogbGVmdDsgdmVydGljYWwtY RayD727 IHRvcDsnPlBhdGllbnQgTmF vAYk1F2QjMde5WZZmhIbjHK 8peJHuGArqWp6wbDtygBnwE H1fVQYt kpzjz373VnJso3keVYAxtTD zHQwbNEO9C17ev4C4HBWuDW LaRIP7wPW9nW8aaKykzqyno GVmdDsg jcCtfRcgEUdsYGdlB431JWZ yqNikDmFirnInIKWmpNE6KN 21QJ70rNEdx1V9mFP9M6OoR GRpbmct jpmpeRB3UPNzAIIbqP78Xl9 thAxaVe8eQFOeFWJ7EFEaoA UjY7ThyX3rMjLbDHMcAKQxX 3RleHQt WFxbS846GGrdBkB5ZQDsnyC oT6WmVEVytMqhFfU0b4F0Cj 7RJ0G3VK56YN35kWOjw8T0b GN9V0Eu UDNrzwcxewumcLT6CUJfADN uqP31Wq8faOzyRw2yJSTsUO G7ORSzuZCrK5FdmI9cOpIkT DAwMDAw H0NwtSRhHGjuV633JLicPrE 0UWKnqxXkR0LlASSobFvsQq Q3p0P5Ds3YEGy4JM30FG86n MIzp8Q9 vSM7R9ZbDMXjychgwqkolNY 4PUSvVTCtqY52Vu9mhPljIj 8kLDUsMMJ6QMUcaBWvM3Phz C4qXkMl ABHyPKUiZ2KoaICnALfeQ66 8AXuxWzG7WRKbjjNyX3IpQH LofFmmChT4h4Z4Qb5UUECzG N25KJB1 pLD1ER09EE95A9BjBoetgQX ibGU+PHRhYmxlIHdpZHRoPS kgDDNsMhYkfPntWB7yBp1kJ GVyLWNv nQstvBEdUwJfh9vgSMWeZJm qML0fgNnmX6MqmRO2OGZrq4 t3Uh81N16hL2GozQW+PGNvb TJ1kOA3 yC4iGdAwRwE8DJomY472HyJ laKShSuvih5uoa6fgsGp4Ys F6PVVsujLrvGgjHUT1h4JkD s13N67z IHdpZHRoPSIxNSUiIHZhbGl svq9wcW4kDt6+VHAoyTG8kL X8oA3jScJuCgZ5GKrxH910H nRvcCIv Uuxno5rnp5qrnEs9AzHcHUF hsyFejEheYVC3t5OoLu24X2 SnoXxlo5JvHpd1bf48tHPtf 3Y0dTV9 M6OeNUBbvskadWBhiXwqDO4 wCYMabcumPSRwcP6mMBBpL6 b1CnBnItX1ZVpiD4VkgwA6M DEwcHQg XXiiBDR5C13zv4L4NBWnZJJ fFIN7dXW2dZ3xzCojobkokH VmdDsgdmVydGljYWwtYWxpZ 246IHRv uFruUBAnjM1pSYWyiROnkVq oWP9wHXHuaaodRzcXAcMYBQ tnT8gXDn6LBVW6J9HrTmm3W CBzdHls HW2mzMQzQTcdQp0tmUfxyPf mNV9sJKZcjkhtAVBmqC5qSD EkrZSvtLanBW3fRETimcvci 250OiAx LSB9EBBjjSQrD5SqlK4mIoO sGFJkZVFnS0KjzVUoPCcbT7 79IGbcKyU0GYJahzPqZ7BaR WFsaWdu XfO2b4X0Gy1gSM1eBf2eULR 8UL63XC05oEFgs8L9rUV9W5 UeURAufkvwwgaskCJ6JABdI DUwaW47 eWFxUYgaVc6sa6S0f265UHH tDKPytA31Ya7dqMgfZEAueQ CJzJ2fggiso4ugnqjkIcQxI DAwMDt0 EDa0BTOjuGnmWrZgMIV2SeH 2UCA2lYAccG5nbNfagsxbsQ 9wOyc+PPgcXBDhloB8L2QiY sr5TVIj eZndNV9onGNeDWquIq8hePa gcMwiZK0uNWYcfkamEBZokY 4dCYOtpWJrcJgyNV2dNDPns sldi205 TrFqYSQ0RCCnsSCwS3EvtY0 hRdRoMDIuSIPmU1ZfsFZrNQ hbA106QZppSeM7UOLnwzXfM 2FsLWFs uEzdQjE7e7P3Ng4VXH6obJP 4C8PvHcu1XUVyiZddNE7amI RzVKbmUj7pxEorfIwaTQ4bM TBpbjtw IIAsjA4wHNDbcLNmqKmcKJ2 jLTTwhjsyz210HtHgXZG6AZ ZahRTiC6FjbR0zUqAaGOGzO ZFfC3Um qXVyYLrnH857LKosScU7RAG salBtO4WuHGVzhMcyKyH3j8 B1Jn3IBQScELGigUYzExP8N 3RkPjwv dHI+LE98NHBsEK73jAPkeJT fi7wyrYg9LmYbJWIlMWE9xR eiGHwso3TzSWLoL39vbJIck 0P0GPWp pEdgsNKeHdFptPM4pR6nAJq fzudix1dguickGpqou0vdaw 97aH67Y22bDIrbLVVxWGPaA CUiIHZh xXciyn6usS9xTv7+PGNvbCB 3mUR4tK6xDaJuSsR8AFnrZ1 32XvHzyFSnCcleh9uvz0nwh Rv6QfVl KVAfqjLzwQhaHPF0b1SyDz7 1P14bXQqzDBPcCHZjWUVcYT JafIjxpz4boZ6xFm1+PC9jb 3hjza90 yD97pHA+PYZxWDA7qIqgZRw fLZOyoE6wRMhaPkL4VIYiAu HobV58jIPjRRtnUk3saNqzj KefQK3y VWSeujpkw147RfAlz7jtKYC irADjXBipVZQ4I40ja4W1AG QsHSOtVMW2gTE4tY9enFgvg jogbGVm qRaznyFhgCdySAhmUYgpN77 7DHTzqOnhCmLkpNRzE5peid IIHU4aMzxzqBZ+AOBbUYA9e WxlPSdw UDFszC2aATOyF8i3ZsTfMoC 4NQbnI2PksvI8OMKvaGCaAJ VezHLRzC1fnceic2nlzcscV zAwMDAw XFn0LSb8ECIzhSrcNuTqRVQ 0FfL8QXA6cIYqfL4pfTgzro ivnU4lOwy+RklOOjwvdGQ+P HRkIHN0 hVtwOSnrYPWtnD9zJVJmQ3c 7RuYbDtV2MKubL0ZlyhD7PX OfiOHlHRKisRCBjU1ghdmqc 2xvcjog YyJmGXAhESs6ALi3IBVbhMw sDwUbFUL0KlD2HTN6rODmeD 0vjQbslmomeW6qSlx+TVJOO jwvdGQ+ MNMnIWT1nYciPPkfLGBwvZ4 zKWOgQ8v8KjOgCmU2AHcdV7 LvdfW6NEDdiFNgHVJraTWRf H5lzafs u8rxdqaeFbMmPFDgPXn6HUp 8ARQfnHprTcQoJNT1CoF8KM B7rLEdvP8dqYbedpcoyF6mN yc+UGF5 EPN3DA68OM91F6GzUuhqqHJ ibGU+PHRhYmxlIHdpZHRoPS fkTXKyRyElvRygWV1mSu0zF GVyLWNv bGxh (more content not included)... [facility] C Urineon 11-13-2022 Bacteria identified Cx Nom (U) Microbiology PROCEDURE: Urine Culture [R1] SOURCE: U Random BODY SITE: COLLECTED DATE/TIME: 11/11/2022 11:33 EST RECEIVED DATE/TIME: 11/11/2022 18:01 EST START DATE/TIME: 11/11/2022 18:01 EST FREE TEXT SOURCE: SYLWIA WHITTAKER, ALVINA PRYOR PA-C, ALVINA Silva FINAL REPORTS Final Report [] Verified Date/Time: 11/13/2022 09:40 EST >100,000 cfu/ml Escherichia coli SUSCEPTIBILITY RESULTS ____ LEGEND: S=Susceptible, N/R=Not Reported, Blank=Data not available, or drug not advisable or tested, I=Intermediate, ESBL=Extended spectrum beta-lactamase, R=Resistant, TFG=Thymidine-dependent strain, LAITH=Beta-lactamase positive, KAYLEEN=mcg/m;(mg/L), S*=Predicted susceptible interp, R*=Predicted resistant interp ___ EC Antibiotic KAYLEEN Dilutn KAYLEEN Interp Amikacin <=16 S Ampicillin >16 R Ampicillin/ 16/8 I Sulbactam Aztreonam <=4 S Cefazolin <=2 S Cefepime <=2 S Cefoxitin <=8 S Ceftazidime <=1 S Ceftazidime/ <=8 S Avibactam Ceftriaxone <=1 S Ciprofloxacin <=1 S Ertapenem <=0.5 S Gentamicin >8 R Levofloxacin <=2 S Meropenem <=1 S Nitrofurantoin <=32 S Piperacillin/ <=16 S Tazobactam Tetracycline <=4 S Tigecycline <=2 S Tobramycin 8 I Trimethoprim/ <=2/38 S Sulfa Performing Locations R1: This test was performed at: [facility], [address] [place] [address], [id number] , [place], Normal [facility] Comment on above: Performed By: #### [id number] ####[facility] [id number] [place] [address] Ambulatory Visit Summaryon 0 11-11-2022 Ambulatory Visit Summary [place] JUNIOR :1965 Visit Date:11/11/2022 Ambulatory Visit Instructions Your Diagnosis Urethral stricture Incomplete bladder emptying Mixed incontinence Microhematuria Tests Performed Urnls Dip Stick Auto w/o Microscopy POC [id number] Your Care Team Attending Physician - ALVINA PRYOR PA-C Primary Care Physician - CRISTIAN PRASAD Referring Physician - Servando GRANADOS MD This Is Your Medications List terazosin (terazosin 5 mg Cap) Contact prescribing physician if questions or concerns albuterol (albuterol CFC free 90 mcg/inh inhalation aerosol) alendronate (alendronate 70 mg Tab) atorvastatin (atorvastatin 40 mg Tab) brexpiprazole (Rexulti 2 mg oral tablet) diclofenac topical (diclofenac topical 1% gel) divalproex sodium (divalproex sodium 250 mg ER Tab) duloxetine (duloxetine 60 mg Cap-DR) ergocalciferol (ergocalciferol 50,000 intl units Cap) formoterol-mometasone (Dulera) ipratropium nasal (ipratropium Nasal 0.06% [place]) levetiracetam (levetiracetam 250 mg Tab) methylphenidate (methylphenidate 10 mg Tab) pantoprazole (Pantoprazole [address] Tab) pilocarpine (pilocarpine 5 mg Tab) pregabalin (pregabalin 100 mg Cap) promethazine (promethazine 25 mg Tab) sucralfate (sucralfate 1 g Tab) tizanidine (tiZANidine 4 mg Tab) topiramate (Topamax 100 mg Tab) Procedures Performed Cystourethroscopy with dilation of urethral stricture (10/06/2022), Urodynamics (04/13/2020), Cystourethroscopy with dilation of urethral stricture (09/29/2019), Cystourethroscopy with dilation of urethral stricture (07/22/2018), Cervical (01/27/2017), Bunionectomy, c5-c6 repair, Cholecystectomy, ORIF - Open reduction and internal fixation of fracture, Rotator cuff repair, Tubal ligation. Discharge Vitals Heart Rate (Peripheral) 77 Respiratory Rate 16 Blood Pressure 106/77 Height 155 cm Height 61 in Weight 92 kg Weight 202.4 lb BMI 38.29 What to do next Scheduled Follow-Up Appointments Thursday 1:00 PM EDT With: ALVINA PRYOR PA-C Where: [facility] CT TEMPORAL BONES WO CONon 0 11-11-2022 CT TEMPORAL BONES WO CON EXAMINATION: CT TEMPORAL BONES WO CON HISTORY: Right mastoiditis right ear ache since August, on and off COMPARISON: None. TECHNIQUE: CT images through the temporal bones without contrast with coronal reformatted images. FINDINGS Dose reduction techniques were achieved by using automated exposure control and/or adjustment of mA and/or kV according to patient size and/or use of iterative reconstruction technique. FINDINGS: Right temporal bone: External auditory canal is clear. Tympanic membrane is not abnormally thickened. Ossicles are intact. Mastoid air cells and middle ear cavities are clear. Inner ear structures appear normal. Left temporal bone:External auditory canal is clear. Tympanic membrane is not abnormally thickened. Ossicles are intact. Mastoid air cells and middle ear cavities are clear. Inner ear structures appear normal. No appreciable soft tissue inflammation around the temporal bones/ears. Fluid in the left sphenoid sinus. IMPRESSION: 1. The mastoid air cells are clear. No mastoid effusion or evidence for mastoiditis. No evidence for otitis media. No soft tissue inflammation around the temporal bones/ears. 2. Air-fluid level in the left sphenoid sinus, which could represent acute sinusitis in the appropriate clinical setting. Electronically authenticated by: BRIDGETTE BUCIO Date: 2022-11-11 21:47 Normal The [facility] Patient Educationon 11-11-19 23 Patient Education Obstetrics and Gynecology Overactive Bladder, Adult Overactive bladder refers to a condition in which a person has a sudden need to pass urine. The person may leak urine if he or she cannot get to the bathroom fast enough (urinary incontinence). A person with this condition may also wake up several times in the night to go to the bathroom. Overactive bladder is associated with poor nerve signals between your bladder and your brain. Your bladder may get the signal to empty before it is full. You may also have very sensitive muscles that make your bladder squeeze too soon. These symptoms might interfere with daily work or social activities. What are the causes? This condition may be associated with or caused by: ? Urinary tract infection. ? Infection of nearby tissues, such as the prostate. ? Prostate enlargement. ? Surgery on the uterus or urethra. ? Bladder stones, inflammation, or tumors. ? Drinking too much caffeine or alcohol. ? Certain medicines, especially medicines that get rid of extra fluid in the body (diuretics). ? Muscle or nerve weakness, especially from: ? A spinal cord injury. ? Stroke. ? Multiple sclerosis. ? Parkinson's disease. ? Diabetes. ? Constipation. What increases the risk? You may be at greater risk for overactive bladder if you: ? Are an older adult. ? Smoke. ? Are going through menopause. ? Have prostate problems. ? Have a neurological disease, such as stroke, dementia, Parkinson's disease, or multiple sclerosis (MS). ? Eat or drink things that irritate the bladder. These include alcohol, spicy food, and caffeine. ? Are overweight or obese. What are the signs or symptoms? Symptoms of this condition include: ? Sudden, strong urge to urinate. ? Leaking urine. ? Urinating 8 or more times a day. ? Waking up to urinate 2 or more times a night. How is this diagnosed? Your health care provider may suspect overactive bladder based on your symptoms. He or she will diagnose this condition by: ? A physical exam and medical history. ? Blood or urine tests. You might need bladder or urine tests to help determine what is causing your overactive bladder. You might also need to see a health care provider who specializes in urinary tract problems (urologist). How is this treated? Treatment for overactive bladder depends on the cause of your condition and whether it is mild or severe. You can also make lifestyle changes at home. Options include: ? Bladder training. This may include: ? Learning to control the urge to urinate by following a schedule that directs you to urinate at regular intervals (timed voiding). ? Doing Kegel exercises to strengthen your pelvic floor muscles, which support your bladder. Toning these muscles can help you control urination, even if your bladder muscles are overactive. ? Special devices. This may include: ? Biofeedback, which uses sensors to help you become aware of your body's signals. ? Electrical stimulation, which uses electrodes placed inside the body (implanted) or outside the body. These electrodes send gentle pulses of electricity to strengthen the nerves or muscles that control the bladder. ? Women may use a plastic device that fits into the vagina and supports the bladder (pessary). ? Medicines. ? Antibiotics to treat bladder infection. ? Antispasmodics to stop the bladder from releasing urine at the wrong time. ? Tricyclic antidepressants to relax bladder muscles. ? Injections of botulinum toxin type A directly into the bladder tissue to relax bladder muscles. ? Lifestyle changes. This may include: ? Weight loss. Talk to your health care provider about weight loss methods that would work best for you. ? Diet changes. This may include reducing how much alcohol and caffeine you consume, or drinking fluids at different times of the day. ? Not smoking. Do not use any products that contain nicotine or tobacco, such as cigarettes and e-cigarettes. If you need help quitting, ask your health care provider. ? Surgery. ? A device may be implanted to help manage the nerve signals that control urination. ? An electrode may be implanted to stimulate electrical signals in the bladder. ? A procedure may be done to change the shape of the bladder. This is done only in very severe cases. Follow these instructions at home: Lifestyle ? Make any diet or lifestyle changes that are recommended by your health care provider. These may include: ? Drinking less fluid or drinking fluids at different times of the day. ? Cutting down on caffeine or alcohol. ? Doing Kegel exercises. ? Losing weight if needed. ? Eating a healthy and balanced diet to prevent constipation. This may include: ? Eating foods that are high in fiber, such as fresh fruits and vegetables, whole grains, and beans. ? Limiting foods that are high in fat and processed sugars, such as fried and sweet foods. General instructions ? Take ove (more content not included)... Normal [facility] Urinalysison 11-11-2022 Bacteria LM Ql (Urine sed) 3+ /HPF Abnormal Trace [facility] Comment on above: Performed By: #### 1 [id number] ####[facility] [id number] [place] [address] Bilirubin Ql (U) Negative Normal Negative [facility] Comment on above: Performed By: #### 1 [id number] ####[place] [id number] [place] [address] Clarity (U) CLEAR Normal Clear [facility] Comment on above: Performed By: #### 1 [id number] ####[facility] [id number] [place] [address] Color (U) YELLOW Normal Yellow [facility] Comment on above: Performed By: #### 1 [id number] ####[facility] [id number] [place] [address] Epithelial cells.squamous LM.HPF (Urine sed) [#/Area] /[HPF] Normal 0-2 [facility] Comment on above: Performed By: #### 1 [id number] ####[facility] [id number] [place] [address] Glucose Test strip (U) [Mass/Vol] Negative Normal Negative [facility] Comment on above: Performed By: #### 1 [id number] ####[facility] [id number] [place] [address] Hemoglobin Ql (U) 2+ Abnormal Negative [facility] Comment on above: Performed By: #### 1 [id number] ####[facility] [id number] [place] [address] Ketones (U) [Mass/Vol] Negative Normal Negative [facility] Comment on above: Performed By: #### 1 [id number] ####[address] [address] Chamois.plasma/Chamois. RBC (Bld) [Mass ratio] 4-20 Normal 0-3 [facility] Comment on above: Performed By: #### 1 [id number] ####[address] [address] Nitrite Ql (U) Positive Abnormal Negative [facility] Comment on above: Performed By: #### 1 [id number] ####[address] [address] pH (U) 6.0 [pH] Invalid Interpretation Code 5.0-9.0 [facility] Comment on above: Performed By: #### 1 [id number] ####[address] [address] Protein (U) [Mass/Vol] 1+ Abnormal Negative [facility] Comment on above: Performed By: #### 1 [id number] ####[address] [address] Specific gravity (U) [Rel density] 1.025 Invalid Interpretation Code 1.005-1.030 [facility] Comment on above: Performed By: #### 1 [id number] ####[address] [address] Type of Urine collection method Random Urine Normal [facility] Comment on above: Performed By: #### 1 [id number] ####[address] [address] Urobilinogen Qn (U) 0.2 {Edson'U}/dL Normal 0.0-1.0 [facility] Comment on above: Performed By: #### 1 [id number] ####[address] [address] WBC Auto Ql (U) 1+ Abnormal Negative [facility] Comment on above: Performed By: #### 1 [id number] ####[address] [address] WBC LM.HPF (Urine sed) [#/Area] /[HPF] Abnormal 0-5 [facility] Comment on above: Performed By: #### 1 [id number] ####[facility] [id number] [place] [address] Urology Office/Clinic Noteon 11-11-2022 Urology Office/Clinic Note Chief Complaint S/P Cysto/UD HPI Staff S/P CYsto/UD by Dr Granados on 10/06/22 due to urethral stricture, incomplete bladder emptying, mixed incontinence *Terazosin 5mg QD therapy. Urgency has improved. Leaking has improved. Voiding less frequently. Feels empty after voiding. PVR today is 81ml Is scheduled for Hysterectomy next month. Pt denies pain and burning. Denies visible blood in urine. History of Present Illness staff HPI reviewed and agree. Review of Systems no fever, chills, malaise, myalgia. no rash/lesions. no chest pain, palpitations, or SOB. no abdominal pain, nausea, vomiting. no unilateral calf swelling, redness, pain Physical Exam Vitals & Measurements HR: 77(Peripheral) RR: 16 BP: 106/77 HT: 61 in HT: 155 cm WT: 92 kg WT: 202.4 lb BMI: 38.29 General: nontoxic, NAD Mouth: moist mucosa Lungs: normal respiratory effort Cardio: regular rate, good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 WxlZnQ6 MXKrEwNrhM70qDQoDAfkJw3 geYxrbNqwOZ9zUUBdnggwQS CjdD4xOLHuiXXycMtxDG2nO TBpbjtm o232FkJwHMQ2FQKamWQiV3C dyZ3sKbRkYGJvGNWmE5FztL EqBYnqR821RYbxPgW4NVUsc mXlF3Ov LFAdaOqcOtZ5y2V8Rv6Yc4E grfylDIG6JBbnNKQbMjJ1Qq QbKnI5Z3OhErn3UQFamSsrI L2mR0Dr NDZpolykguopqWG1YJKrLWR bfZ64jRXrJOzrVs5wb8U6z6 18IGHfTCGjgK79Db4opQmaF TBwdCBU aQ4rnhpel9svwoiiYrHySAW mOZt1MYn8NKYtpNthCaBrML T0PnS6DTP8tGNchP6sgKyvd qslsE7l Oyc+C34alG2wMSW2WLR6zig jPEMtvsLlFI54RG04I5KbTt wvdGFibGU+PGRpdiBzdHlsZ F6rFtHd o9hud7GmAOlkJ0UlUZPfWXp oAae2SZArATO9pBR4sH5uKO CmWAxbp2M1zRX1N6VbizZsl j4kv7xb ALSaEQbwL12qfFObj1J7KJJ hwZS4ASJycBldLvFpmL25Yo c+HPRgmDesj2JvCdzfi6ycv 1skgTd4 ZnHjIPOjwaUrrSfzOBL9h8J uHk61B37fVNtdAKMlQGFfQK OhALPgfFtrmu3loJ8lDa3+P GNvbCB3 iJV2iO1uBPLxKbE6TAhrM03 5WlJpqPFpHkizk9tir2otwD u6GmNzQQQpvvOlnFoeSRD7n 4YgDq35 I67cVLabYLXgBTCyJEFcBEE tsLgxxo0lpS8jLp6+PC9jb2 txwi25tE65gRU+WNYkERM6i WxlPSdw TJUjaU9lPZxsSlR3AOJfZmN bzN59zZZyMZacEa6iyKcnoQ phFU7qKKRxjtlmn044VnYjt 2xkIDEw bHCiSDxzJDU9T22py8R2FIN eTGNbDUF3dID3yI3wwElswc ogbGVmdDsgdmVydGljYWwtY XzqA904 IHRvcDsnPlBhdGllbnQgTmF nSHr7O8HaIsf6FOMyeXgeCC 8vdGPxYWtmPm1qbFmgdYzmT T5vZCTb zzlmc734WoNoq4htYNYqkXY bIVxaRML0T42fy6A5CBIaRO TtLET5cMU3gT5qkLywqyttx GVmdDsg ypOxiLovOIzkDFifR427NWC wePjrUnMmjhIoRXAsaHD0LN 58OC84fWMcg8S8xRK9Y7ImF GRpbmct asrbaCJ5VCMyMHNvaT86Sa0 mxRvfFv0aDQTaMSY4FRIzdW JhA2CxlT9wBqKzBSWdORHyK 3RleHQt WZseL568ZGafTbT5ZWRifmA yI2QzBYLnkKyqEtP0r8N6Jf 3NZ8P0HU69NZ98iAOab4P4z DV6P0Qq TXKprbynmszdyWK7UMAvNXF adM19Dd1rpPdiWg9gFFJyMU G2HCGqeMAbE2MhoI3nDtXtP DAwMDAw F9JggABlZRxdA521ZGxbPkG 6IHStyqJaD9LmFSQpcXncVm M3f3G1Kx4IWLb4YG21ZS74k OHfh3N8 uWN6V0MnFNUmjetbljprfIJ 7HQAvQRKyeI21Am4gmCyeBr 2qXHPgVLG7CAZazOHhP2Tuo F6cEmWs ZCPmWOZwN0ImaEVaLAuiO29 3UOqvZxD3OYRrumAfB9HgLX NynFjiAgP4d8H7Xl2AYHJdO X63KXB8 eQO8GJ04PI56S7IwBcotvSI ibGU+PHRhYmxlIHdpZHRoPS tdHJAfWkLfiLntYU2qQv1cN GVyLWNv xTpvyXAvCpKez2ylIPJzTZg uBM1xwCfkL7ImtIA6QPPpi6 x7Uu76R45uB4ZqdIP+PGNvb XF6pDT6 zC3jDpQwNmZ4AWtpF679YuD zxURhShytm4wix5epcBq9Lo H5XCNgqeCxoGqgZHV9m8HmQ c56D59l IHdpZHRoPSIxNSUiIHZhbGl lyo9dhO8dUk9+EXGddGN2bD S9fL9vVwQgUuB4TUpqA258O nRvcCIv Ighzq4bpp1tjpFw0FuArIBY bqeEszYefXOK1p3UiSk69L2 SypSlus6IgYpk2ig36uGVry 3V1cZE4 P4DpPUBjsblwhURfvLpuSV8 tAASfephfOMNcmR4kVGDcJ4 s7HiXiTbA7EShuC6CplaY7O DEwcHQg ODxqUSI2W92qn1D3JGEiVUK iKUC0zWS3nU5xqCnslqlwiH VmdDsgdmVydGljYWwtYWxpZ 246IHRv eEurRKQgiA7hLZRdfYKpbXj xGW0mFSIwwoqtKimGNcOLON egT3gNHq2ULRX1W5MjKwd8A CBzdHls BI1fsVHgFQgiLw1wuBmkzAm sII5tBBGvqwrrVZYjzG9yLT QtvZEptBerSY9cQUSninnsu 250OiAx EJD7UNSxzOYgK1AkfC1kRqM gNNQdHOWfV2NgvAMsTOuiD1 13PMckCzH2TMZzzzApX0WvG WFsaWdu QsH6y1M4In9bXY4pZr2rJXL 5XQ47IY72dWLql7H6rKE8E5 LtFRIvupjnrsknsMK7BRJbZ DUwaW47 cDDkGKnfIv1pi7C3a671EAV yEKEzrF74Ae2jdHjoUHKwvJ LWgO8yjbqov5tmmwjfWoJuF DAwMDt0 VOr9DOYohKzbJuGfDLN7VtE 0HCL4uHTuoO6mjTfzegcpmK 9wOyc+TPvxMRZhgfC4H0BsJ ye0WYHa bSflIT6zxUBhRFtmIl1rfHl gwFfnPS9kHZSmsekmZMGfoT 6kKOWxyHCouAphSC2lDWUtz dddl675 HlLnPYO9IAMdzCEfP1SolL6 yUbMnONJrBSNcJ7WrpQJsYU niO123HCqoRbG0UFNejfQyL 2FsLWFs hBbfXiY7v7S1Qt0ZJH6irLH 8C2NvEzw9GTBaoEjoKG5wyZ CaODpgRk1ugTwvaGejIP1hN TBpbjtw OJMfdW1dAOWhiRUzqZneLN3 tLWGwtggrr923WqQoSCH1OQ QesYIzA4ZdvA6zPoNjLZEnV KFkN0Tg zHYjUGxlI138GWwsRhG8DJC ocaQuT8LdJFIuhWlxWnR0g8 L4Go9OhRJgIZQwTS44TR86E B08K6No PjwvdGFibGU+PHRhYmxlIHd pZHRoPScxMDAlJyBzdHlsZT 4qLq8vPNBbUBLmwFvpqUDoB xWrn7mw POEoAThyZK0ejMqiU7GtcJO 4GBQlq4m3Zi10Z28rV1ZbgU A+IVGxtCI5gWZ7hK3vMiLxZ rY8QNvs Y974UnAjmLUhKljss5xtg0q crTu6YaWyGUKopkRyiZlwEI E1l2FpUq33Z56dNUdkKWEqT SIyMCUi OAFxdWgtlk7uvO8fFu8+PGN bkHW7bOV8uG8gHsElGjT3JK svE877ElDsqDKeErthI68uT 3JvdXA+ NBEwQlu4XOIubZitBL7kaRT vQSkqCo4xFWK3EkEsFyFbVT syJ8UwGAJeprioclrqvHF3N DAuMDUw oK19Yn3dtTocQv8fRSFnMME 5KZCylWThO7ZlkX3jTkAxGM NqUTJfQ5AmmYYdSWdlU501L GxlZnQ7 HHBkpmJpS7RoVLWryExaCqN 0t2C4Xa7LeUysfXHtQS1tRc IsBLo6Y9YnIjv4VUFraOvoH N0gcQPq ECeqRk4wuWlyeRfgID0mFMV zfklel360UoDpq1tuORLwoG XhNCahJYO1J58me8Q7FNHwP DAwMDA7 dWE7tF0rsQxcnyzqkREuqOi waoThaJxbTTkpGMexY419II GvhHxsCeMHWvd9C2XeAjy9A CBzdHls OG4auJEnMJqwKl9ajNgnhEr kJQ8cFDRhcjnsh219AaRcx5 ljEWGklNLcTHyvTHI2E86mi 6X4FDTy BSYsDNU3qRB8hO8ihWfkdeo gbGVmdDsgdmVydGljYWwtYW jbW690FTWbbTptMo6CLsx7O 0DwGcd9 OJWrpZdbST0mkXIzTQeyIu4 mjMzhoOadTF9pFFUjqaqkd0 07ZoKuz3zuPYFmuZJhHFzfC YN8Z77j u0F1MCIpPKYkZBA6wMC8rH7 hbGlnbjogbGVmdDsgdmVydG dkSJtkRUmpW249KLZwhRytD lBheWVy OjwvdGQ+NU84yy16L0SqXfb nSoy7HDReTFO9iLW8mS2wJI QxFCxni3Z1aHT4L9QjraPqm i3qu6iw YXBz (more content not included)... Normal [facility] Consent for Procedure/Surger yon 10-09-2022 Consent for Procedure/Surgery [id number] D:127 Normal [facility] Established Visit (Orthopaed ic Surgery)on 10-07-2022 Established Visit (Orthopaedic Surgery) Diagnoses/Problems Assessed Arthritis of right shoulder region (716.91) (M19.011) Patient Discussion/Summary [place] is two years status post right shoulder reverse replacement revision with polyethylene exchange. Overall I think she is doing well. I explained that with continued home exercises she could see range of motion improvements over the next two years. She is overall doing well. She has some muscular instability so we will get her back in therapy. I have provided a script. We will see her back in 6 months for repeat clinical exam. If she recovers well from her tibia fracture we may consider surgery in the future. She knows to call us if she gets worse in the meantime. Followup in 6 months By signing my name below, I, Sp Motley, attest that this documentation has been prepared under the direction and in the presence of Dr. Eugene Osuna. All medical record entries made by the Sp were at my direction and personally dictated by me. I have reviewed the chart and agree that the record accurately reflects my personal performance of the history, physical exam, discussion and plan. Provider Impressions Chief Complaint FUV R SHOULDER Clinical check post (R) shoulder revision RTSR DOS: 04/26/2020) History of Present Illness [place] JUNIOR is a pleasant 57 year old female who returns to clinic for a follow up visit status post right shoulder reverse replacement revision with polyethylene exchange on 04/26/2020. Denies any recent falls or injury to either shoulder. Patient has a long history in regards to her shoulder. Pain is much better controlled at this point with her right shoulder. 0 out of 10 pain at rest. She denies use of pain medication at this time for her shoulder. Denies redness or warmth at incision site. No fever and chills. She is sleeping well. She has been trying to reach behind with continued limitations. Continues to do well with daily home therapy for shoulder. She initially worked with Occupational Therapy post operatively for balance instability. She is here today because she is feeling a locking up of her right shoulder. She notes that it started about a week ago. She has not been doing physical therapy. She suffered a recent knee injury and presents today wearing a knee brace. Past medical, family or social histories have been reviewed and they are up to date, see HPI. Family history is not pertinent to the presenting problem. Review of Systems Review of systems for all 14 systems is negative for complaint except for the above noted findings in the history of present illness. 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.7) (M22.42) Chronic lumbosacral pain (724.2,338.29) (M54.50,G89.29) Chronic rupture of ACL of left knee (844.2) (S83.512A) Closed fracture of proximal end of left fibula, unspecified fracture morphology, initial encounter (823.01) (S82.832A) Compression fracture of lumbar vertebra (805.4) (S32.000A) Contusion of right knee, initial encounter (924.11) (S80.01XA) Cough (786.2) (R05.9) Degenerative arthritis of knee, bilateral (715.96) (M17.0) Degenerative scoliosis in adult patient (733.90,737.43) (M41.50) Dizziness and giddiness (780.4) (R42) Genu valgum (736.41) (M21.069) Knee effusion, left (719.06) (M25.462) Knee pain (719.46) (M25.569) Locking of left knee (717.9) (M23.92) Loss of consciousness (780.09) (R40.20) 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94) (G25.81) Rotator cuff tear arthropathy of right shoulder (716.81) (M75.101,M12.811) Rotator cuff tendonitis, right (726.10) (M75.81) Sacral pain (724.6) (M53.3) Skin complaints (782.9) (R23.9) Spondylosis of cervical region without myelopathy or radiculopathy (721.0) (M47.812) Status post cervical spinal fusion (V45.4) (Z98.1) Status post orthopedic surgery, follow-up exam (more content not included)... Normal [facility] 10-07-2022 XR Shoulder 2 Views Please click on the link to view the study images Normal [facility] 130 DO Work Phone: XR Shoulder 2 Views Normal [facility] 210 Work Phone: SHOULDER, CMPLT, MIN 2 VIEWS on 10-07-2022 SHOULDER, CMPLT, MIN 2 VIEWS Patient Name: [place] [employer]: SHOULDER, CMPLT, MIN 2 VIEWS; 10/07/2022 2:17 pm INDICATION: pain M25.511: Acute pain of right shoulder. COMPARISON: 07/08/2022 ACCESSION NUMBER(S): [id number] ORDERING CLINICIAN: EUGENE OSUNA FINDINGS: Right shoulder, four views Reverse total shoulder arthroplasty in place. No periprosthetic fracture lucency seen. There is no dislocation. IMPRESSION: No hardware failure about the right reverse total shoulder arthroplasty Electronically signed by: DARLENE NICOLE MD Normal [facility] Consent for Treatmenton 09-15 Consent for Treatment [id number] D:127 Normal [facility] Inpatient Patient Summaryon 10-06-2022 Inpatient Patient Summary [address] [address] Clinical Summary Person Information Name: GEORGIA JUNIOR Age: 57 Years : 1965 Sex: Female PCP: CRISTIAN PRASAD Marital Status: Race: White Ethnicity: Non- or Language: Marshallese Visit Id: Visit Reason: URTHERAL STRICTURE, INCOMPLETE EMPTYING Speciality: Acuity: Enc Type: Outpatient Med Service: Surgery Arrival: 10/06/2022 13:35:57 Discharge: Dispo Type: Address: [address] [facility] [address] [facility] [id number] Provider Notes: Diagnosis: Problems Active Urethral stricture Recurrent UTI Kidney stones Personal history of kidney stones Stress incontinence Food impaction of esophagus Narcolepsy Chronic obstructive pulmonary disease Fibromyalgia Hypercholesterolemia Smoker History of TMJ syndrome Anemia Apnea, sleep Acute asthma Osteoporosis HTN (hypertension) Migraine Gall stones Hesitancy Incomplete bladder emptying Intermittent urinary stream Urgency of urination Urge incontinence Nocturia History of back pain Bipolar I disorder, mild, current or most recent episode depressed, with mixed features Chronic neck pain Hiatal hernia GERD (gastroesophageal reflux disease) Restless legs Insomnia Smoking Status: Functional Status: Sensory Deficits: History of Falls: Mobility Assistance Prior to Admission: ADLs: Current Level of Assistance for Self-Care/Mobility: Cognitive Status: Allergies penicillins (rash) sulfa drugs (rash) morphine (rash) Keflex (rash) Vicodin (nausea) Norflex (rash) Pyridium (headache) Vistaril (itching) hydrochlorothiazide (itching) Latuda (Involuntary movement) Laboratory or Other Results This Visit (last charted value for your 10/06/2022 visit) No Laboratory or Other Results This Visit Measurements: Height: 160 cm Weight: Blood Pressure: Not Valued / Not Valued BMI: Procedures No Procedures Documented Immunizations No Immunizations Documented This Visit Final Med List: albuterol (albuterol CFC free 90 mcg/inh inhalation aerosol) alendronate (alendronate 70 mg Tab) TAKE 1 TABLET BY MOUTH ONCE A WEEK. atorvastatin (atorvastatin 40 mg Tab) TAKE 1 TABLET BY MOUTH EVERY DAY. brexpiprazole (Rexulti 2 mg oral tablet) diclofenac topical (diclofenac topical 1% gel) dicyclomine (dicyclomine 10 mg Cap) divalproex sodium (divalproex sodium 250 mg ER Tab) doxycycline (doxycycline hyclate 100 mg Cap) 1 Capsules By Mouth 2 times a day. Take 1 tab the day prior to procedure and 1 tab the day of proceduer - afterwards. Refills: 0. duloxetine (duloxetine 60 mg Cap-DR) By Mouth every day. ergocalciferol (ergocalciferol 50,000 intl units Cap) formoterol-mometasone (Dulera) Inhalation BID. ipratropium nasal (ipratropium Nasal 0.06% [place]) 2 Sprays Nasal Inhalation 3 times a day. lamotrigine (Lamictal 200 mg Tab) 1 Tablets By Mouth every day. Refills: 5. levetiracetam (levetiracetam 250 mg Tab) methylphenidate (methylphenidate 10 mg Tab) Misc Prescription ([facility] 315 MG-D3 6.25 MCG) TAKE 1 TABLET BY MOUTH TWICE A DAY. Misc Prescription (PROMETHAZINE 25MG TABS) 0. pantoprazole (Pantoprazole [address] Tab) TAKE 1 TABLET BY MOUTH TWICE A DAY. pilocarpine (pilocarpine 5 mg Tab) 1 Tablets By Mouth 3 times a day. pregabalin (pregabalin 100 mg Cap) TAKE 1 CAPSULE BY MOUTH THREE TIMES A DAY. promethazine (promethazine 25 mg Tab) By Mouth every 6 hours. quetiapine (SEROquel 50 mg Tab) By Mouth 2 times a day. sucralfate (sucralfate 1 g Tab) terazosin (terazosin 5 mg Cap) 1 Capsules By Mouth every day. Refills: 3. tizanidine (tiZANidine 4 mg Tab) TAKE 1 TABLET BY MOUTH TWICE A DAY NEEDED FOR MUSCLE SPASMS. topiramate (Topamax 100 mg Tab) 1 Tablets By Mouth once a day (in the evening). Refills: 5. Care Team Members: Attending Physician: Servando GRANADOS MD Consulting Physician: Referring Physician: Servando GRANADOS MD Follow up: With: Address: When: ALVINA PRYOR [address] [place], [place] [id number] [facility] (1) Within 6 weeks Comments: Call for followup appointment. Monitor the urinary flow after the dilation today. Expect some burning for a day or so. I hope this helps quickly. Have a great day. Patient Education Information: EU - Cystoscopy with Urethral Dilation Discharge Instructions (Custom) Isidro [facility] Main OR Intraoperative Recor don 10-06-2022 Main OR Intraoperative Record IntraOp Document Type FTURO Summary Primary Physician: Servando GRANADOS MD Finalized Date/Time: 10/06/22 14:43:52 Pt. Name: GEORGIA JUNIOR /Sex: 1965 Female Med Rec #: [id number] Physician: Servando GRANADOS MD Financial #: [id number] Pt. Type: O Room/Bed: / Admit/Disch: 10/06/22 13:35:57 - Institution: Case Times FTURO Entry 1 Patient Times In Room 10/06/22 14:31:00 Out Room 10/06/22 14:46:00 Procedure Times Start 10/06/22 14:33:00 Stop 10/06/22 14:41:00 Anesthesia Times Last Modified By: Radha JOYCE, PILAR, Marce 10/06/22 14:41:22 Case Attendance FTURO Entry 1 Entry 2 Entry 3 Case Attendee Seravndo GRANADOS MD RN, CNOR, Rowena MARIE, Bri Zheng Role Performed Surgeon - Primary Probation Agent - Relief Scrub - Primary Time In 10/06/22 14:31:00 10/06/22 14:31:00 10/06/22 14:31:00 Time Out 10/06/22 14:46:00 10/06/22 14:46:00 10/06/22 14:46:00 Procedure CYSTOSCOPY LOCAL WITH CYSTOSCOPY LOCAL WITH CYSTOSCOPY LOCAL WITH URETHRAL DILATION(.) URETHRAL DILATION(.) URETHRAL DILATION(.) Comments Last Modified By: Radha JOYCE, CNOR, Radha JOYCE, GERBEROR, Radha JOYCE, GERBEROR, Marce 10/06/22 Marce 10/06/22 Marce 10/06/22 14:41:23 14:41:23 14:41:23 Surgical Procedures FTURO Entry 1 Procedure Description Procedure CYSTOSCOPY LOCAL WITH Modifiers . URETHRAL DILATION Surgeon Description CYSTO U/D Primary Procedure Yes Primary Surgeon Servando GRANADOS MD Start 10/06/22 14:33:00 Stop 10/06/22 14:41:00 Anesthesia Type Local Surgical Service Urology Wound Class 2 - Clean-Contaminated Last Modified By: Radha JOYCE, GERBEROR, Marce 10/06/22 14:41:24 General Case Data FTURO Pre-Care Text: Classifies surgical wound, implements aseptic technique, initiates traffic control Entry 1 Case Information OR URO 1 FT Case Level None Wound Class 2 - Clean-Contaminated Specialty Urology Preop Diagnosis URTHERAL STRICTURE, Postop Same As Preop Yes Postop Diagnosis URTHERAL STRICTURE, Outcomes Met? Yes Last Modified By: PILAR Garcai RN, Ruthann 10/06/22 14:21:18 Post-Care Text: The patient is free from signs and symptoms of infection EU IntraOp - FTURO Pre-Care Text: Implements protective measures prior to operative or invasive procedure, confirms identity before the operative or invasive procedure, verifies operative procedure, surgical site, and laterality Entry 1 EU Perioperative Protocols Procedure(s) CYSTOSCOPY LOCAL WITH Patient Identity Birthday, ID Band URETHRAL DILATION(.) Verified (select at Check, Patient least 2): Participation Consents / H and P HandP, Surgery/Procedure Operative Site N/A Verified Consent Marking Verified Surgical Site Yes Laterality Verified n/a Verified Procedure Verified Yes Correct Patient Yes Position Verified Availability Equipment, Implant Time Out Servando GRANADOS MD, Verified (If Participants PILAR Garcia RN, Applicable) Rowena Zheng CST, Julie A Time Out Complete 10/06/22 14:32:00 Allergies Reviewed? Yes Allergies Reviewed Self/Patient With Body Position Low Lithotomy Prep Area perineal area Prep Agents Betadine Solution Skin. Condition Unable to Visualize Additional None Specimens Collected Vitals - EU Blood Pressure 109/70 Pulse 88 bpm Respirations SPO2 EBL 0 IandO - EU Total Intake 0 mL Total Output 0 mL Outcomes Met? Yes Last Modified By: PILAR Garcia RN, Ruthann 10/06/22 14:35:52 Post-Care Text: The patient is free from signs and symptoms of injury caused by extraneous objects Sign Out FTURO Entry 1 Before Patient Leaves OR Nurse verbally Yes Nurse verbally n/a confirms with the confirms with the team the name of team that the procedure(s) instrument, sponge, recorded and needle counts are correct (or N/A) Nurse verbally n/a Nurse verbally n/a confirms with the confirms with the team how the team whether there specimen is labeled are any equipment (including patient problems to be name), if applicable addressed Sign Out Complete 10/06/22 14:43:00 Last Modified By: PILAR Garcia RN, Ruthann 10/06/22 14:42:01 Case Comments Finalized By: PILAR Garcia RN, Ruthann Document Signatures Signed By: PILAR Garcia RN, Ruthann 10/06/22 14:42 PILAR Garcia RN, Ruthann 10/06/22 14:43 Normal [facility] Main OR Preoperative Recordo n 10-06-2022 Main OR Preoperative Record Holding Area Document Type FTURO Summary Primary Physician: Servando GRANADOS MD Finalized Date/Time: 10/06/22 14:34:17 Pt. Name: GEORGIA JUNIOR Codi Mcgrath./Sex: 1965 Female Med Rec #: [id number] Physician: Servando GRANADOS MD Financial #: [id number] Pt. Type: O Room/Bed: / Admit/Disch: 10/06/22 13:35:57 - Institution: Case Times Holding FTURO Pre-Care Text: Verifies consent for planned procedure, identifies individual values and wishes concerning care, includes family members in perioperative teaching Secures patient's records' belongings, and valuables, maintains patient's dignity and privacy, and maintains patient confidentiality Entry 1 In Holding 10/06/22 13:44:00 Outcomes Met? Yes Last Modified By: Tonie Marc LPN 10/06/22 13:44:29 Post-Care Text: The patient participates in decisions affecting his or her perioperative plan of care The patient's right to privacy is maintained Surgery Checklist FTURO Entry 1 Patient Birthday, Patient Procedure History and Physical, Identification: Participation Verification: Surgical Consent, With Patient NPO after Midnight: No Date/Time: 10/06/22 13:44:00 Personal Items: Jewelry Personal Items clothes Comment: Limitations: na Complaints of Pain: No Pain Comment: na Skin Integrity Intact, [place], Warm, & Dry Vitals - EU Blood Pressure 109/70 Pulse 88 bpm Respirations 18 br/min SPO2 98 % RN Reviewed Yes Last Modified By: PILAR Garcia RN, Ruthann 10/06/22 14:34:15 General Comments: temp:36.3 Finalized By: PILAR Garcia RN, Ruthann Document Signatures Signed By: Tonie Marc LPN 10/06/22 13:55 Radha JOYCE, Marce QUEZADA 10/06/22 14:34 Normal [facility] Operative Reporton Operative Report Patient: JODI JUNIOR Age: 57 years Sex: Female : 1965 Associated Diagnoses: None Author: Servando GRANADOS MD Procedure Operative Information Details: Date/ Time: 10/06/2022 14:43:00. Pre-Op Dx: Urgency Incontinence - N39.41, Urinary Retention - R33.9, Urethral Stricture - Female Post Trauma, Urethral Stricture - Other Post Infective Female - N35.12. Post-Op Dx: Same. Anesthesia Type: Local. Procedure: Local Cystoscopy with Urethral Dilation. Complications: None. Risks/Benefits/Informed Consent: Surgical risks, benefits, details of the procedure have been explained to the patient, Full informed consent has been obtained. Intraoperative Information Prepped: Patient is brought back to the endoscopy suite, Patient is placed in modified dorso/lithotomy position, Patient prepped in the usual fashion with Betadine solution, 2% Xylocaine Jelly is placed per Urethra, After waiting several minutes the Cystoscope is introduced. The Urethra is: Tight, Tight at 16 Fr. . The Bladder is: Normal, Trabeculated Moderate (2), No tumor, no stones. , Moderate retained urine. . The ureteral orifices: Show efflux of clear urine. The Urethra was dilated to: 30 Martiniquais w/ sounds. Devices Implanted: None. Removal: Cystoscope is removed, The patient tolerated it well. Postoperative Information Discharge: Patient is discharged home with antibiotic coverage, Follow up arranged, F/U with Hoa Pryor PA-C in six weeks. . Normal [facility] Comment on above: Result Comment: Elec tronically Signed By: Servando GRANADOS MD\.br\Date and Time Signed: 10/06/22 14:44 EST Outpatient Surgery Discharge Instructionon 10-06-2022 Outpatient Surgery Discharge Instruction [place] [id number] Patient Discharge Instructions PERSON INFORMATION Name: GEORGIA JUNIOR Date of : 1965 Current Date: 10/06/2022 14:42:46 PHYSICIANS Admitting Physician: Servando GRANADOS MD Comment: Discharge Diagnosis: GEORGIA JUNIOR has been given the following list of follow-up instructions, prescriptions, and patient education materials: IF UNABLE TO CONTACT YOUR PHYSICIAN AND YOU FEEL IT IS AN EMERGENCY, GO TO THE NEAREST EMERGENCY ROOM OR CALL 911 Follow up: With: Address: When: ALVINA PRYOR [facility] [place], [place] [id number] [facility] Within 6 weeks Comments: Call for followup appointment. Monitor the urinary flow after the dilation today. Expect some burning for a day or so. I hope this helps quickly. Have a great day. Comment: PATIENT EDUCATION INFORMATION Instructions: Cystoscopy with Urethral Dilation ? Voiding after the procedure: there may be some pain, urethral bleeding, burning, urgency, frequency and blood tinged urine following the procedure. These symptoms usually resolve within 2-5 days. Drink the amount of fluid it takes to keep the urine pink to yellow or clear in color. Drinking enough water and fluids will help to ease any discomfort after your procedure. ? If you are having problems that seem out of the ordinary, please call. ? If unable to contact your physician and you feel it is an emergency, go to the nearest emergency room or call 911 ? Diet ? you may resume your normal diet. ? Activity ? you may resume your normal activities ? Call if you have a fever over 100 degrees SANDI Poole SHARON A, have received the attached patient education materials/instructions and have verbalized understanding: May we do a follow up call? Yes No I was present when discharge instructions were given Patient Signature Date Clinican/Nurse Signature _ Date You may receive a survey from [employer] asking you to rate your care experience. Your feedback is important and will help us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 Glucose Reference Range is dependent on time and content of last meal. Glucose of more than 200 mg/dL in a nonstressed, ambulatory subject supports the diagnosis of Diabetes Mellitus. Serum or plasma potassium me asurement (moles/volume)Ordered By: Hugo Gonzalez on 08-29-2022 Potassium [Moles/Vol] 3.8 mmol/L 3.5-5.1 [facility] Serum or plasma sodium measu rement (moles/volume)Ordered By: Hugo Carlos on 08-29-2022 Sodium [Moles/Vol] 135 mmol/L 136-146 [facility] Serum or plasma total carbon dioxide measurement (moles/volume)Ordered By: Hugo Gonzalez on 08-29-2022 CO2 [Moles/Vol] 20.2 mmol/L 22.0-30.0 [facility] Serum or plasma urea nitroge n measurement (mass/volume)Ordered By: Hugo Gonzalez on 08-29-2022 Urea nitrogen [Mass/Vol] 19 mg/dL 9-23 [facility] WBC Auto (Bld) [#/Vol]Ordere d By: Hugo Gonzalez on 08-29-2022 WBC (Bld) [#/Vol] 11.8 10*3/uL 3.8-11.6 [facility] COVID-19 SOFIAOrdered By: MD DANIAL Crane on 08-27-2022 SARS-CoV+SARS-CoV-2 (COVID-19) Ag IA.rapid Ql (Resp) Negative Negative [facility] Comment on above: This is a duplicate Opal SARS Antigen (SHARDA) result to be used for statistical tracking purpose only. 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 I explained that with continued home exercises she could see range of motion improvements over the next two years. She is overall doing well. She has some muscular instability so we will get her back in therapy. I have provided a script. We will see her back in 3 months for repeat clinical exam and obain new x-rays. She knows to call us if she gets worse in the meantime. Followup in 3 months with x-rays. By signing my name below, I, Sp Motley, attest that this documentation has been prepared under the direction and in the presence of Dr. Eugene Osuna. All medical record entries made by the Sp were at my direction and personally dictated by me. I have reviewed the chart and agree that the record accurately reflects my personal performance of the history, physical exam, discussion and plan. Provider Impressions Chief Complaint FUV R SHOULDER Clinical check post (R) shoulder revision RTSR DOS: 04/26/2020) History of Present Illness GEORGIA JUNIOR is a pleasant 57 year old female who returns to clinic for a follow up visit status post right shoulder reverse replacement revision with polyethylene exchange on 04/26/2020. Denies any recent falls or injury to either shoulder. Patient has a long history in regards to her shoulder. Pain is much better controlled at this point with her right shoulder. 0 out of 10 pain at rest. She denies use of pain medication at this time for her shoulder. Denies redness or warmth at incision site. No fever and chills. She is sleeping well. She has been trying to reach behind with continued limitations. Continues to do well with daily home therapy for shoulder. She initially worked with Occupational Therapy post operatively for balance instability. She is here today because she is feeling a locking up of her right shoulder. She notes that it started about a week ago. She has not been doing physical therapy. She suffered a recent knee injury and presents today wearing a knee brace. Past medical, family or social histories have been reviewed and they are up to date, see HPI. Family history is not pertinent to the presenting problem. Review of Systems Review of systems for all 14 systems is negative for complaint except for the above noted findings in the history of present illness. 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.7) (M22.42) Chronic lumbosacral pain (724.2,338.29) (M54.50,G89.29) Chronic rupture of ACL of left knee (844.2) (S83.512A) Closed fracture of proximal end of left fibula, unspecified fracture morphology, initial encounter (823.01) (S82.832A) Compression fracture of lumbar vertebra (805.4) (S32.000A) Contusion of right knee, initial encounter (924.11) (S80.01XA) Cough (786.2) (R05.9) Degenerative arthritis of knee, bilateral (715.96) (M17.0) Degenerative scoliosis in adult patient (733.90,737.43) (M41.50) Dizziness and giddiness (780.4) (R42) Genu valgum (736.41) (M21.069) Knee effusion, left (719.06) (M25.462) Knee pain (719.46) (M25.569) Locking of left knee (717.9) (M23.92) Loss of consciousness (780.09) (R40.20) 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94) (G25.81) Rotator cuff tear arthropathy of right shoulder (716.81) (M75.101,M12.811) Rotator cuff tendonitis, right (726.10) (M75.81) Sacral pain (724.6) (M53.3) Skin complaints (782.9) (R23.9) Spondylosis of cervical region without myelopathy or radiculopathy (721.0) (M47.812) Status post cervical spinal fusion (V45.4) (Z98.1) Status post orthopedic surgery, follow-up exam (V67.09) (Z09) Status post replacement of right shoulder joint (V43.61) (Z96.611) (more content not included)... Normal [facility] 07[facility]-2022 XR Shoulder 2 Views Please click on the link to view the study images Normal [facility]-Orthopaed [facility] 130 DO Work Phone: XR Shoulder 2 Views Normal [facility]-Or thopaed [address] Work Phone: SHOULDER, CMPLT, MIN 2 VIEWS on 07-08-2022 SHOULDER, CMPLT, MIN 2 VIEWS Patient Name: GEORGIA JUNIOR STUDY: SHOULDER, CMPLT, MIN 2 VIEWS; Right; 07/08/2022 2:04 pm INDICATION: Shoulder Pain Z96.611: Status post replacement of right shoulder joint. COMPARISON: 06/24/2021 ACCESSION NUMBER(S): [id number] ORDERING CLINICIAN: EUGENE OSUNA FINDINGS: Right glenohumeral reverse arthroplasty again noted. No acute hardware complication. No acute fracture is seen. Old-appearing rib deformities of the right posterolateral 4th and 5th ribs. Partially imaged cervical spine hardware. IMPRESSION: Right glenohumeral reverse arthroplasty without acute hardware complication. Electronically signed by: NAVA PITT MD Normal [facility] 06-24-2021 XR Shoulder 2 Views Normal MG-Or thopaed [employer] [address] Work Phone: XR Shoulder 2 Views Please click on the link to view the study images Normal [facility]-Orthopaed [facility] 130 DO Work Phone: Radiologyon 05-14-2020 XR Shoulder 2 Views Interpreted by: DANIEL NGUYỄN 05/14/20 13:02 Patient Name: GEORGIA JUNIOR STUDY: SHOULDER, CMPLT, MIN 2 VIEWS; Right; 05/14/2020 9:51 am INDICATION: Status post replacement of right shoulder joint. COMPARISON: 04/26/2020 ACCESSION NUMBER(S): [id number] ORDERING CLINICIAN: MARIANNA ESCAMILLA FINDINGS: Stable intact reverse total right shoulder prosthesis. Previous surgical drain has been removed. No evidence of complication. Moderate acromioclavicular joint arthritis. Healed right rib fractures. IMPRESSION: Intact total right shoulder prosthesis. Electronically signed by: EVE 05/14/20 13:02 Normal [facility] Work Phone: Cult, Misc + smearon 020 Bacteria identified Cx Nom (Unsp spec) PATIENT: GE[place] JUNIOR LOCATION: [place] [address] BILL#: [id number] : 65 AGE: SEX: F ORDERED BY: EUGENE OSUNA SOURCE: MISC COLLECTED: 04/26/20 16:30 ANTIBIOTICS AT LAURA.: RECEIVED : 04/26/20 22:53 SITE: right shoulder #1 R E S U L T S GRAM STAIN FINAL 04/27/20 01:47 1+ GRANULOCYTES. NO ORGANISMS SEEN. MISCELLANEOUS CULT./SM.BACT. FINAL 05/10/20 16:20 NO GROWTH AEROBICALLY OR ANAEROBICALLY. [facility] Work Phone: Comment on above: extended incubation Bacteria identified Cx Nom (Unsp spec) PATIENT: GEOR[place]IA JUNIOR LOCATION: [place] [address] BILL#: [id number] : 65 AGE: SEX: F ORDERED BY: EUGENE OSUNA SOURCE: MISC COLLECTED: 04/26/20 16:30 ANTIBIOTICS AT LAURA.: RECEIVED : 04/26/20 22:52 SITE: right shoulder #3 R E S U L T S GRAM STAIN FINAL 04/27/20 07:56 2+ GRANULOCYTES. NO ORGANISMS SEEN. MISCELLANEOUS CULT./SM.BACT. FINAL 05/10/20 16:23 NO GROWTH AEROBICALLY OR ANAEROBICALLY. [facility] [address] Work Phone: Comment on above: extended incubation Bacteria identified Cx Nom (Unsp spec) PATIENT: GEOR[place]IA JUNIOR LOCATION: [place] [address] BILL#: [id number] : 65 AGE: SEX: F ORDERED BY: EUGENE OSUNA SOURCE: MISC COLLECTED: 04/26/20 16:30 ANTIBIOTICS AT LAURA.: RECEIVED : 04/26/20 22:51 SITE: right shoulder #2 R E S U L T S GRAM STAIN FINAL 04/27/20 08:13 NO GRANULOCYTES OR ORGANISMS SEEN. MISCELLANEOUS CULT./SM.BACT. FINAL 05/10/20 16:19 NO GROWTH AEROBICALLY OR ANAEROBICALLY. [facility] B 101 Work Phone: Comment on above: extended incubation Bacteria identified Cx Nom (Unsp spec) PATIENT: GEOR[place]IA JUNIOR LOCATION: [place] [address] BILL#: [id number] : 65 AGE: SEX: F ORDERED BY: EUGENE OSUNA SOURCE: MISC COLLECTED: 04/26/20 16:30 ANTIBIOTICS AT LAURA.: RECEIVED : 04/26/20 22:52 SITE: right shoulder #5 R E S U L T S GRAM STAIN FINAL 04/27/20 08:17 2+ GRANULOCYTES. NO ORGANISMS SEEN. MISCELLANEOUS CULT./SM.BACT. FINAL 05/10/20 16:21 NO GROWTH AEROBICALLY OR ANAEROBICALLY. -[facility] B 101 Work Phone: Comment on above: extended incubation Bacteria identified Cx Nom (Unsp spec) PATIENT: GEOR[place]IA JUNIOR LOCATION: [place] [address] BILL#: [id number] : 65 AGE: SEX: F ORDERED BY: EUGENE OSUNA SOURCE: MISC COLLECTED: 04/26/20 16:30 ANTIBIOTICS AT LAURA.: RECEIVED : 04/26/20 22:54 SITE: right shoulder #4 R E S U L T S GRAM STAIN FINAL 04/27/20 16:10 1+ GRANULOCYTES. NO ORGANISMS SEEN. MISCELLANEOUS CULT./SM.BACT. FINAL 05/10/20 16:22 NO GROWTH AEROBICALLY OR ANAEROBICALLY. [facility] [address] Work Phone: Comment on above: extended incubation Radiologyon 04-26-2020 XR Shoulder 2 Views Interpreted by: JOSHUA CLEMENTE 04/26/20 18:09 Patient Name: GEOR[place]IA JUNIOR STUDY: SHOULDER, CMPLT, MIN 2 VIEWS; 04/26/2020 5:55 pm INDICATION: Post Op. COMPARISON: 09/27/2019 ACCESSION NUMBER(S): [id number] ORDERING CLINICIAN: MARIANNA ESCAMILLA TECHNIQUE: A single portable AP radiograph of the right shoulder is performed. FINDINGS: The osseous structures are diffusely demineralized. The patient is status post reverse shoulder are plasty. There is no sign of acute fracture or dislocation patient is no the pt. There are mild changes of acromioclavicular arthrosis. There is old fracture/deformity of posterior right 5th rib in the lateral 4 through 6th rib. IMPRESSION: Satisfactory postoperative appearance of the right shoulder. Osteopenia. Old healed right rib fractures. Electronically signed by: JOSHUA CLEMENTE 04/26/20 18:09 Normal [facility] [address] Work Phone: APTTon 03-05-2020 aPTT Coag (Bld) [Time] 35 s Normal 25 - 35 [facility] Comment on above: Result Comment: Note new reference range as of 02/07/2020. THE APTT IS NO LONGER USED FOR MONITORING UNFRACTIONATED HEPARIN THERAPY. FOR MONITORING HEPARIN THERAPY, USE THE HEPARIN ASSAY. Performed By: #### A PTT #### [address] [address] CBC AND DIFFERENTIALon 03-05 % AUTOMATED IMMATURE GRAN 1.7 % High 0.0 - 0.9 [facility] Comment on above: Result Comment: Marianna ture Granulocyte Count (IG) includes promyelocytes, myelocytes and metamyelocytes but does not include bands. Percent differential counts (%) should be interpreted in the context of the absolute cell counts (cells/L). Performed By: #### C BCDF #### [address] [address] Basophils (Bld) [#/Vol] 0.07 10*3/uL Normal 0.00 - 0.1 0 [facility] Comment on above: Performed By: #### C BCDF #### [address] [address] Basophils/100 WBC (Bld) 0.4 % Normal 0.0 - 2.0 [facility] Comment on above: Performed By: #### C BCDF #### [address] [address] Eosinophils (Bld) [#/Vol] 0.14 10*3/uL Normal 0.00 - 0.70 [facility] Comment on above: Performed By: #### C BCDF #### [address] [address] Eosinophils/100 WBC (Bld) 0.9 % Normal 0.0 - 6.0 [facility] Comment on above: Performed By: #### C BCDF #### [address] [address] Erythrocyte distribution width (RBC) [Ratio] 15.1 % High 11.5 - 14.5 [facility] Comment on above: Performed By: #### C BCDF #### [address] [address] Hematocrit (Bld) [Volume fraction] 37.1 % Normal 36.0 - 46.0 [facility] Comment on above: Performed By: #### C BCDF #### [address] [address] Hemoglobin (Bld) [Mass/Vol] 11.6 g/dL Low 12.0 - 16.0 [facility] Comment on above: Performed By: #### C BCDF #### [address] [address] Lymphocytes (Bld) [#/Vol] 3.93 10*3/uL Normal 1.20 - 4.80 [facility] Comment on above: Performed By: #### C BCDF #### [address] [address] Lymphocytes/100 WBC (Bld) 24.0 % Normal 13.0 - 44.0 [facility] Comment on above: Performed By: #### C BCDF #### [address] [address] MCHC (RBC) [Mass/Vol] 31.3 g/dL Low 32.0 - 36.0 [facility] Comment on above: Performed By: #### C BCDF #### [address] [address] MCV (RBC) [Entitic vol] 87 fL Normal 80 - 100 [facility] Comment on above: Performed By: #### C BCDF #### [address] [address] Monocytes (Bld) [#/Vol] 0.89 10*3/uL Normal 0.10 - 1.0 0 [facility] Comment on above: Performed By: #### C BCDF #### [address] [address] Monocytes/100 WBC (Bld) 5.4 % Normal 2.0 - 10.0 [facility] Comment on above: Performed By: #### C BCDF #### [address] [address] Neutrophils (Bld) [#/Vol] 11.04 10*3/uL High 1.20 - 7.70 [facility] Comment on above: Performed By: #### C BCDF #### [address] [address] Neutrophils/100 WBC (Bld) 67.6 % Normal 40.0 - 80.0 [facility] Comment on above: Performed By: #### C BCDF #### [address] [address] Platelets (Bld) [#/Vol] 374 10*3/uL Normal 150 - 450 [facility] Comment on above: Performed By: #### C BCDF #### [address] [address] RBC (Bld) [#/Vol] 4.25 x10E12/L Normal 4.00 - 5.20 [facility] Comment on above: Performed By: #### C BCDF #### [address] [address] WBC (Bld) [#/Vol] 16.4 10*3/uL High 4.4 - 11.3 [facility] ([place], [place]) Comment on above: Performed By: #### C BCDF #### [address] [address] COMPREHENSIVE PANELon 2019 Albumin [Mass/Vol] 4.0 g/dL Normal 3.4 - 5.0 [facility] Comment on above: Performed By: #### C MP #### [address] [address] ALP [Catalytic activity/Vol] 77 U/L Normal 33 - 110 [facility] Comment on above: Performed By: #### C MP #### [address] [address] ALT [Catalytic activity/Vol] 22 U/L Normal 7 - 45 [facility] Comment on above: Result Comment: Carito ents treated with Sulfasalazine may generate falsely decreased results for ALT. Performed By: #### C MP #### [address] [address] Anion gap [Moles/Vol] 14 mmol/L Normal 10 - 20 [facility] Comment on above: Performed By: #### C MP #### [address] [address] AST [Catalytic activity/Vol] 16 U/L Normal 9 - 39 [facility] Comment on above: Performed By: #### C MP #### [address] [address] Bilirubin [Mass/Vol] 0.2 mg/dL Normal 0.0 - 1.2 [facility] Comment on above: Performed By: #### C MP #### [address] [address] Calcium [Mass/Vol] 9.2 mg/dL Normal 8.6 - 10.3 [facility] Comment on above: Performed By: #### C MP #### [address] [address] Chloride [Moles/Vol] 99 mmol/L Normal 98 - 107 [facility] Comment on above: Performed By: #### C MP #### [address] [address] Creatinine [Mass/Vol] 0.95 mg/dL Normal 0.50 - 1.05 [facility] Comment on above: Performed By: #### C MP #### [address] [address] GFR- AM. >60 Normal >60 [facility] Comment on above: Result Comment: CALC ULATIONS OF ESTIMATED GFR ARE PERFORMED USING THE MDRD STUDY EQUATION FOR THE IDMS-TRACEABLE CREATININE METHODS. CLIN CHEM 2007;53:766-72 Performed By: #### C MP #### [address] [address] GFR-NON AM. >60 Normal >60 [facility] ([place], [place]) Comment on above: Performed By: #### C MP #### [address] [address] Glucose [Mass/Vol] 101 mg/dL High 74 - 99 [facility] Comment on above: Performed By: #### C MP #### [address] [address] HCO3 (Bld) [Moles/Vol] 29 mmol/L Normal 21 - 32 [facility] Comment on above: Performed By: #### C MP #### [address] [address] Potassium [Moles/Vol] 3.5 mmol/L Normal 3.5 - 5.3 [facility] Comment on above: Performed By: #### C MP #### [address] [address] Protein [Mass/Vol] 6.4 g/dL Normal 6.4 - 8.2 [facility] Comment on above: Performed By: #### C MP #### [address] [address] Sodium [Moles/Vol] 138 mmol/L Normal 136 - 145 [facility] Comment on above: Performed By: #### C MP #### [address] [address] Urea nitrogen [Mass/Vol] 26 mg/dL High 6 - 23 [facility] Comment on above: Performed By: #### C MP #### [address] [address] PT/INRon 03-05-2020 INR Coag (PPP) [Relative time] 1.0 {INR} Normal 0.9 - 1.1 [facility] Comment on above: Performed By: #### P TINR #### [address] [address] PT Coag (PPP) [Time] 11.1 s Normal 10.1 - 13.3 [facility] Comment on above: Result Comment: Note new reference range as of 02/07/2020. Performed By: #### P TINR #### [address] [address] Vital Signs Date Time Vital Sign Value Performing Clinician Deon jennings 09-21-2023 13:00-0500 Body height 160.02 cm Bharat Carreon Other [employer] Other 09-21-2023 13:00-0500 Body mass index (BMI) [Ratio] 34.54 kg/m2 Bharat Carreon Other [employer] Other 09-21-2023 13:00-0500 Body weight 88.45 kg Bharat Carreon Other [employer] Other 09-21-2023 13:00-0500 Diastolic blood pressure 73 mm[Hg] Bharat Panchoovanner Other [employer] Other 09-21-2023 13:00-0500 Systolic blood pressure 118 mm[Hg] Bharat Carreon Other [employer] Other 08-26-2023 09:00-0500 Body height 160.02 cm Kevan Hyman Other [employer] Other 08-26-2023 09:00-0500 Body mass index (BMI) [Ratio] 35.07 kg/m2 Kevan Hyman Other [employer] Other 08-26-2023 09:00-0500 Body temperature 97.6 [degF] Kevan Hyman Other [employer] Other 08-26-2023 09:00-0500 Body weight 89.81 kg Kevan Hyman Other [employer] Other 08-26-2023 09:00-0500 Diastolic blood pressure 72 mm[Hg] Kevan Hyman Other [employer] Other 08-26-2023 09:00-0500 Respiratory rate 20 /min Kevan Hyman Other [employer] Other 08-26-2023 09:00-0500 SaO2% (BldA) [Mass fraction] 99 % Kevan Hyman Other [employer] Other 08-26-2023 09:00-0500 Systolic blood pressure 109 mm[Hg] Kevan Yenni Other [employer] Other 08-04-2023 13:00-0500 Body height 160.02 cm Bharat Scovanner Other [employer] Other 08-04-2023 13:00-0500 Body mass index (BMI) [Ratio] 36.13 kg/m2 Bharat Scovanner Other [employer] Other 08-04-2023 13:00-0500 Body weight 92.53 kg Bharat Scovanner Other [employer] Other 08-04-2023 13:00-0500 Diastolic blood pressure 77 mm[Hg] Bharat Scovanner Other [employer] Other 08-04-2023 13:00-0500 Systolic blood pressure 115 mm[Hg] Bharat Scovanner Other [employer] Other 05-20-2023 09:30-0400 Body height 160.02 cm Kevan Hyman Other [employer] Other 05-20-2023 09:30-0400 Body mass index (BMI) [Ratio] 35.96 kg/m2 Kevan Balldano Other [employer] Other 05-20-2023 09:30-0400 Body temperature 97.4 [degF] Kevan Hyman Other [employer] Other 05-20-2023 09:30-0400 Body weight 92.08 kg Kevan Yenni Other [employer] Other 05-20-2023 09:30-0400 Diastolic blood pressure 78 mm[Hg] Kevan Yenni Other [employer] Other 05-20-2023 09:30-0400 Respiratory rate 20 /min Kevan Yenni Other [employer] Other 05-20-2023 09:30-0400 SaO2% (BldA) [Mass fraction] 98 % Kevan Hyman Other [employer] Other 05-20-2023 09:30-0400 Systolic blood pressure 116 mm[Hg] Kevan Hyman Other [employer] Other 05-04-2023 11:00-0400 Body height 160.02 cm Bharat Carreon Other [employer] Other 05-04-2023 11:00-0400 Body mass index (BMI) [Ratio] 35.78 kg/m2 Bharat Carreon Other [employer] Other 05-04-2023 11:00-0400 Body weight 91.63 kg Bharat Lauri Other [employer] Other 05-04-2023 11:00-0400 Diastolic blood pressure 70 mm[Hg] Bharat Scovanner Other [employer] Other 05-04-2023 11:00-0400 Systolic blood pressure 97 mm[Hg] Bharat Orteganer Other [employer] Other 03-05-2023 13:45-0400 Body height 160.02 cm Corey Moore Other [employer] Other 03-05-2023 13:45-0400 Body mass index (BMI) [Ratio] 35.42 kg/m2 Corey Moore Other [employer] Other 03-05-2023 13:45-0400 Body weight 90.72 kg Corey Moore Other [employer] Other 03-05-2023 13:45-0400 Diastolic blood pressure 87 mm[Hg] Corey Moore Other [employer] Other 03-05-2023 13:45-0400 Systolic blood pressure 125 mm[Hg] Corey Moore Other [employer] Other 01-09-2023 16:17-0400 Body temperature 97.5 [degF] [facility] Work Phone: [facility] 01-09-2023 16:17-0400 Diastolic blood pressure 76 mm[Hg] [facility] Work Phone: [facility] 01-09-2023 16:17-0400 Heart rate 74 /min [facility] Work Phone: [facility] 01-09-2023 16:17-0400 Respiratory rate 18 /min [facility] Work Phone: [facility] 01-09-2023 16:17-0400 SaO2% (BldA) [Mass fraction] 96 % [facility] Work Phone: [facility] 01-09-2023 16:17-0400 Systolic blood pressure 149 mm[Hg] [facility] Work Phone: [facility] 01-09-2023 12:12-0400 Body height 157.48 cm [facility] Work Phone: [facility] 01-09-2023 12:12-0400 Body weight 95 kg [facility] Work Phone: [facility] 12-31-2022 16:01-0400 Body temperature 97.7 [degF] [facility] Work Phone: [facility] 12-31-2022 16:01-0400 Diastolic blood pressure 81 mm[Hg] [facility] Work Phone: [facility] 12-31-2022 16:01-0400 Heart rate 77 /min [facility] Work Phone: [facility] 12-31-2022 16:01-0400 Respiratory rate 14 /min Services [facility] Work Phone: [facility] 12-31-2022 16:01-0400 SaO2% (BldA) [Mass fraction] 95 % [facility] Work Phone: [facility] 12-31-2022 16:01-0400 Systolic blood pressure 135 mm[Hg] [facility] Work Phone: [facility] 12-31-2022 11:50-0400 Inhaled oxygen flow rate 2 L/min [facility] Work Phone: [facility] 12-31-2022 06:56-0400 Body height 157.48 cm [facility] Work Phone: [facility] 12-31-2022 06:56-0400 Body mass index (BMI) [Ratio] 37.9 kg/m2 [facility] Work Phone: [facility] 12-31-2022 06:56-0400 Body weight 94 kg [facility] Work Phone: [facility] 11-20-2022 13:45-0500 Body height 160.02 cm Kevan Hyman Other [employer] Other 11-20-2022 13:45-0500 Body mass index (BMI) [Ratio] 38.79 kg/m2 Jesesarina Balldano Other [employer] Other 11-20-2022 13:45-0500 Body temperature 97.2 [degF] Jeseenriqueer Yenni Other [employer] Other 11-20-2022 13:45-0500 Body weight 99.34 kg Jeseenriqueer Yenni Other [employer] Other 11-20-2022 13:45-0500 Diastolic blood pressure 80 mm[Hg] Bretter Yenni Other [employer] Other 11-20-2022 13:45-0500 Respiratory rate 20 /min Bretter Yenni Other [employer] Other 11-20-2022 13:45-0500 SaO2% (BldA) [Mass fraction] 96 % Jeseenriqueer Yenni Other [employer] Other 11-20-2022 13:45-0500 Systolic blood pressure 124 mm[Hg] Bretter Yenni Other [employer] Other 09-10-2022 12:00-0500 Body height 160.02 cm Eugene Nicholson II Other [employer] Other 09-10-2022 12:00-0500 Body mass index (BMI) [Ratio] 35.42 kg/m2 Eugene Bharat II Other [employer] Other 09-10-2022 12:00-0500 Body weight 90.72 kg Eugene Nicholson II Other [facility] [employer] Other 09-01-2022 08:45-0500 Body temperature 97.7 [degF] [facility] Work Phone: [facility] 09-01-2022 08:45-0500 Diastolic blood pressure 77 mm[Hg] [facility] Work Phone: [facility] 09-01-2022 08:45-0500 Heart rate 88 /min [facility] Work Phone: [facility] 09-01-2022 08:45-0500 Systolic blood pressure 130 mm[Hg] [facility] Work Phone: [facility] 08-29-2022 11:40-0500 Diastolic blood pressure 81 mm[Hg] [facility] Work Phone: [facility] 08-29-2022 11:40-0500 Heart rate 85 /min [facility] Work Phone: [facility] 08-29-2022 11:40-0500 Respiratory rate 16 /min [facility] Work Phone: [facility] 08-29-2022 11:40-0500 SaO2% (BldA) [Mass fraction] 96 % [facility] Work Phone: [facility] 08-29-2022 11:40-0500 Systolic blood pressure 118 mm[Hg] [facility] Work Phone: [facility] 08-29-2022 10:33-0500 Body temperature 98.5 [degF] [facility] Work Phone: [facility] 08-29-2022 10:33-0500 Inhaled oxygen flow rate 10 L/min [facility] Work Phone: [facility] 08-29-2022 10:16-0500 Body height 154.94 cm [facility] Work Phone: [facility] 08-29-2022 10:16-0500 Body mass index (BMI) [Ratio] 37.8 kg/m2 [facility] [employer] Phone: [facility] 08-29-2022 10:16-0500 Body weight 90.71 kg Services [facility] [employer] Phone: [facility] 08-26-2022 14:15-0500 Body height 160.02 cm Kevan Kingno Other [employer] Other 08-26-2022 14:15-0500 Body mass index (BMI) [Ratio] 36.66 kg/m2 Bretter Yenni Other [employer] Other 08-26-2022 14:15-0500 Body temperature 97.6 [degF] Kevan Kingno Other [employer] Other 08-26-2022 14:15-0500 Body weight 93.9 kg Bretter Yenni Other [employer] Other 08-26-2022 14:15-0500 Diastolic blood pressure 69 mm[Hg] Christenriqueer Yenni Other [employer] Other 08-26-2022 14:15-0500 Respiratory rate 20 /min Christenriqueer Yenni Other [employer] Other 08-26-2022 14:15-0500 SaO2% (BldA) [Mass fraction] 96 % Bretter Yenni Other [employer] Other 08-26-2022 14:15-0500 Systolic blood pressure 96 mm[Hg] Bretter Yenni Other [employer] Other 05-21-2022 12:30-0400 Body height 160.02 cm Christenriqueer Yenni Other [employer] Other 05-21-2022 12:30-0400 Body mass index (BMI) [Ratio] 37.2 kg/m2 Christenriqueer Yenni Other [employer] Other 05-21-2022 12:30-0400 Body temperature 98 [degF] Christenriqueer Yenni Other [employer] Other 05-21-2022 12:30-0400 Body weight 95.26 kg Christenriqueer Yenni Other [employer] Other 05-21-2022 12:30-0400 Diastolic blood pressure 82 mm[Hg] Christenriqueer Yenni Other [employer] Other 05-21-2022 12:30-0400 Respiratory rate 20 /min Christenriqueer Yenni Other [employer] Other 05-21-2022 12:30-0400 SaO2% (BldA) [Mass fraction] 98 % Christenriqueer Yenni Other [employer] Other 05-21-2022 12:30-0400 Systolic blood pressure 121 mm[Hg] Christopher Yenni Other [employer] Other 02-11-2022 15:55-0400 Body height 156.21 cm Rina Vallejo MD Work Phone: [facility]Lqngyndwt-Gyttfug [facility] B 101 Work Phone: 02-11-2022 15:55-0400 Body mass index (BMI) [Ratio] 32.9 kg/m2 Rina Vallejo MD Work Phone: NQ-Rqamewuzp-Veyicad e B 101 Work Phone: 02-11-2022 15:55-0400 Body surface area Derived from formula 1.8 m2 Rina Vallejo MD Work Phone: VD-Elpygpifv-Pollajm e B 101 Work Phone: 02-11-2022 15:55-0400 Body weight 80.29 kg Rina Vallejo MD Work Phone: FY-Wlqppgamb-Hufrjya e B 101 Work Phone: 02-11-2022 15:55-0400 Diastolic blood pressure 72 mm[Hg] Rina Vallejo MD Work Phone: JO-Sdyfbhhly-Dioplzg e B 101 Work Phone: 02-11-2022 15:55-0400 Heart rate 76 /min Rina Vallejo MD Work Phone: YG-Zvzeamndp-Toogyqo e B 101 Work Phone: 02-11-2022 15:55-0400 Systolic blood pressure 113 mm[Hg] Rina Vallejo MD Work Phone: WV-Rmbitcaul-Arpdtfl e B 101 Work Phone: 12-05-2021 11:00-0400 Body height 160.02 cm Kevan Hyman Other [employer] Other 12-05-2021 11:00-0400 Body mass index (BMI) [Ratio] 39.14 kg/m2 Kevan Hyman Other [employer] Other 12-05-2021 11:00-0400 Body temperature 96.4 [degF] Kevan Hyman Other [employer] Other 12-05-2021 11:00-0400 Body weight 100.25 kg Kevan Yenni Other [employer] Other 12-05-2021 11:00-0400 Diastolic blood pressure 90 mm[Hg] Bretter Yenni Other [employer] Other 12-05-2021 11:00-0400 Respiratory rate 20 /min Kevan Kingno Other [employer] Other 12-05-2021 11:00-0400 SaO2% (BldA) [Mass fraction] 96 % Kevan Kingno Other [employer] Other 12-05-2021 11:00-0400 Systolic blood pressure 134 mm[Hg] Kevan Kingno Other [employer] Other 10-28-2021 13:45-0500 Body height 160.02 cm Hebert Carolina Other [employer] Other 10-28-2021 13:45-0500 Body mass index (BMI) [Ratio] 37.73 kg/m2 Hebert Carolina Other [employer] Other 10-28-2021 13:45-0500 Body weight 96.62 kg Hebert Carolina Other [employer] Other 08-22-2021 11:45-0500 Body height 160.02 cm Kevan Kingno Other [employer] Other 08-22-2021 11:45-0500 Body mass index (BMI) [Ratio] 36.13 kg/m2 Kevan Balldano Other [employer] Other 08-22-2021 11:45-0500 Body temperature 96 [degF] Christopher Yenni Other [employer] Other 08-22-2021 11:45-0500 Body weight 92.53 kg Christopher Yenni Other [employer] Other 08-22-2021 11:45-0500 Diastolic blood pressure 71 mm[Hg] Christopher Yenni Other [employer] Other 08-22-2021 11:45-0500 Respiratory rate 20 /min Christopher Yenni Other [employer] Other 08-22-2021 11:45-0500 SaO2% (BldA) [Mass fraction] 98 % Christopher Yenni Other [employer] Other 08-22-2021 11:45-0500 Systolic blood pressure 104 mm[Hg] Christopher Yenni Other [employer] Other 06-18-2021 15:45-0400 Body height 160.02 cm Christopher Yenni Other [employer] Other 06-18-2021 15:45-0400 Body mass index (BMI) [Ratio] 35.42 kg/m2 Christopher Yenni Other [employer] Other 06-18-2021 15:45-0400 Body temperature 97.4 [degF] Christopher Yenni Other [employer] Other 06-18-2021 15:45-0400 Body weight 90.72 kg Jesesarina Balldano Other [employer] Other 06-18-2021 15:45-0400 Diastolic blood pressure 90 mm[Hg] Jesesarina Balldano Other [employer] Other 06-18-2021 15:45-0400 Respiratory rate 20 /min Jesesarina Balldano Other [employer] Other 06-18-2021 15:45-0400 SaO2% (BldA) [Mass fraction] 95 % Kevan Kingno Other [employer] Other 06-18-2021 15:45-0400 Systolic blood pressure 127 mm[Hg] Kevan Yenni Other [employer] Other 05-24-2020 16:09-0400 Body height 156.21 cm Saroj WORTHYNeurologyMariah silva B [facility] Work Phone: 05-24-2020 16:09-0400 Body mass index (BMI) [Ratio] 32.9 kg/m2 Saroj WORTHYMV-Gehigbnxk-Fukapmk e B 101 Work Phone: 05-24-2020 16:09-0400 Body surface area Derived from formula 1.8 m2 Saroj WORTHYNeurology-Cal lawrence e B 101 Work Phone: 05-24-2020 16:09-0400 Body weight 80.29 kg Saroj WORTHYNeurologyMariah saucedo e B 101 Work Phone: 05-24-2020 16:09-0400 Diastolic blood pressure 74 mm[Hg] Saroj WORTHYFU-Rcuicteab-Joqmwzd e B 101 Work Phone: 05-24-2020 16:09-0400 Heart rate 81 /min Saroj Burnett MD TU-Vmyuegitk-Zma sheryl e B 101 Work Phone: 05-24-2020 16:0400 Systolic blood pressure 110 mm[Hg] Saroj OLIVARESUO-Btkilelak-Vqqrkyp e B 101 Work Phone: Encounters Encounter Date Encounter Type Care Provider Facility Start: 06-21-2024 ambulatory ALVINA Ricardo PRYOR Raheel ty:JULIO CÉSAR [facility] Start: 10-01-2023 End: 10-01-2023 ambulatory Kevan Yenni Other [employer] Other Start: 10-01-2023 Telephone encounter Kevan angel [facility] Start: 09-30-2023 Refill Ivelisse Thomas RN [facility] Start: 09-23-2023 End: 09-23-2023 ambulatory Bharat Carreon Other [employer] Other Start: 09-23-2023 Telephone encounter Bharat Martínez [facility] Start: 09-21-2023 End: 09-21-2023 ambulatory Bharat Carreon Other [employer] Other Start: 09-21-2023 Office outpatient visit 25 minutes Bharat Carreon [facility] Start: 09-08-2023 End: 09-08-2023 ambulatory Services [facility] Facility:[facility] Start: 09-08-2023 End: 09-08-2023 ambulatory Services [facility] Work Phone: [facility] Work Phone: Start: 09-08-2023 End: 09-08-2023 Patient encounter procedure Services [facility] Work Phone: [facility] Work Phone: Start: 09-03-2023 End: 09-03-2023 ambulatory Bharat Carreon Other [employer] Other Start: 09-03-2023 Telephone encounter Bharat Martínez [facility] Start: 08-28-2023 End: 08-29-2023 ambulatory [facility] Start: 08-28-2023 End: 08-28-2023 Subsequent hospital visit by physician Ken Jnd134 [facility] Comment on above: Lumbar radiculopathy Start: 08-26-2023 End: 08-26-2023 ambulatory Christsarina Yenni Other [employer] Other Start: 08-26-2023 Office outpatient visit 15 minutes Christenriqueer Yenni [facility] Start: 08-25-2023 End: 08-25-2023 ambulatory Bharat Carreon Other [employer] Other Start: 08-25-2023 Telephone encounter Bharat Martínez [facility] Start: 08-05-2023 End: 08-05-2023 ambulatory Christenriqueer Yenni Other [employer] Other Start: 08-05-2023 Telephone encounter Christsarina riverao [facility] Start: 08-04-2023 End: 08-04-2023 ambulatory Bharat Carreon Other [employer] Other Start: 08-04-2023 Office outpatient visit 15 minutes Bharat Carreon [facility] Start: 07-21-2023 End: 07-21-2023 ambulatory [facility] Start: 07-01-2023 End: 07-01-2023 ambulatory Christopher Yenni Other [employer] Other Start: 07-01-2023 Telephone encounter Christsarina riverao [facility] Start: 06-29-2023 End: 06-29-2023 ambulatory Bharat Scsalina Other [employer] Other Start: 06-29-2023 Telephone encounter Bharat Martínez [facility] Start: 06-16-2023 End: 06-17-2023 ambulatory ALVINA Silva SYLWIA Facility:[facility] Start: 05-25-2023 End: 05-25-2023 ambulatory Bharat Carreon Other [employer] Other Start: 05-25-2023 Telephone encounter Bharat Martínez [facility] Start: 05-20-2023 End: 05-20-2023 ambulatory Kevan Kingno Other [employer] Other Start: 05-20-2023 Office outpatient visit 15 minutes Kevan Hyman [facility] Start: 05-04-2023 End: 05-04-2023 ambulatory Bharat Carreon Other [employer] Other Start: 05-04-2023 Office outpatient visit 15 minutes Bharat Carreon [facility] Start: 05-04-2023 Telephone encounter Kevan Ball jeanne [facility] Start: 05-01-2023 Office outpatient visit 15 minutes Eugene Osuna MD Work Phone: XP-Fhagyxmmlwov-Umpauhxvl 2700 DO Work Phone: Start: 05-01-2023 Patient encounter procedure Eugene Osuna MD Work Phone: AI-Noyunewnacex-Iseeuo 200 Work Phone: Start: 05-01-2023 ambulatory EUGENE OSUNA Facility:[id number] Start: 04-09-2023 End: 04-09-2023 ambulatory Corey Moore Other [employer] Other Start: 04-09-2023 Telephone encounter Corey Moore [facility] Start: 03-30-2023 End: 03-30-2023 ambulatory Christsarina Yenni Other [employer] Other Start: 03-30-2023 Telephone encounter Jesesarina riverao [facility] Start: 03-05-2023 End: 03-05-2023 ambulatory Corey Moore Other [employer] Other Start: 03-05-2023 Patient encounter procedure Corey Moore [facility] Start: 01-21-2023 End: 01-21-2023 ambulatory Kevan Yenni Other [employer] Other Start: 01-21-2023 Telephone encounter Kevan riverao [facility] Start: 01-09-2023 End: 01-09-2023 Emergency department patient visit Terrence Doe Facility:[facility] Start: 01-09-2023 End: 01-09-2023 Emergency department patient visit Services [facility] Work Phone: [facility] Work Phone: Start: 12-31-2022 End: 12-31-2022 ambulatory Brando Visci Facility:[facility] Start: 12-31-2022 End: 12-31-2022 Admission to same day surgery center Services [facility] Work Phone: [facility]-Surgery Center [place] Start: 12-17-2022 End: 12-17-2022 ambulatory Services [facility] Facility:[facility] Start: 12-17-2022 End: 12-17-2022 ambulatory Services [facility] Work Phone: [facility] Work Phone: Start: 12-17-2022 End: 12-17-2022 Patient encounter procedure Services [facility] Work Phone: [facility] Qvn-Tqm-Kbatztzc Testing Work Phone: Start: 12-16-2022 End: 12-16-2022 ambulatory Kevan Yenni Other [employer] Other Start: 12-16-2022 Telephone encounter Kevan angel [facility] Start: 12-15-2022 End: 12-15-2022 ambulatory Corey Moore Other [employer] Other Start: 12-15-2022 Telephone encounter Corey ROSENTHAL [facility] Start: 12-11-[address] DOCTOR LYNCH Facility :[facility] Start: 12-08-2022 End: 12-08-2022 ambulatory Anne Limon MD Facility:[facility] Start: 11-21-2022 End: 11-21-2022 ambulatory Services [facility] Facility:[facility] Start: 11-21-2022 End: 11-21-2022 ambulatory Services [facility] Work Phone: [facility] Work Phone: Start: 11-21-2022 End: 11-21-2022 Patient encounter procedure Services [facility] Work Phone: [facility]-MRI [address] Work Phone: Start: 11-20-2022 End: 11-20-2022 ambulatory Kevan Hyman Other [employer] Other Start: 11-20-2022 Office outpatient visit 15 minutes Kevan Hyman [facility] Start: 11-12-2022 End: 11-12-2022 ambulatory Kevan Hyman Other [employer] Other Start: 11-12-2022 Telephone encounter Kevan angel [facility] Start: 11-11-2022 End: 11-12-[address] EULALIA LEAL . Facility:[facility] Start: 11-11-2022 End: 11-12-2022 ambulatory ALVINA PRYOR Facility:[facility] Start: 11-05-2022 End: 11-05-2022 ambulatory Corey Moore Other [employer] Other Start: 11-05-2022 Telephone encounter Corey Meza [facility] Start: 10-29-2022 End: 10-29-2022 ambulatory Kevan Hyman Facility:[facility] Start: 10-29-2022 End: 10-29-2022 ambulatory Services [facility] Work Phone: [facility] Work Phone: Start: 10-29-2022 End: 10-29-2022 Patient encounter procedure Services [facility] Work Phone: [facility]-CT [address] Work Phone: Start: 10-22-2022 Chart Update Eugene altamirano MD Work Phone: CA-Utxgrlfjycpy-Hznoun 210 Work Phone: Start: 10-21-2022 End: 10-21-2022 ambulatory Cristian Prasad Facility:[facility] Start: 10-21-2022 End: 10-21-2022 Departed Referred Services [facility] Work Phone: [facility] Start: 10-07-[address] Eugene Osuna Facility:[facility] Start: 10-07-2022 Office outpatient visit 15 minutes Eugene Osuna MD Work Phone: MI-Aajoukuukmir-Ujsgmi 210 Work Phone: Start: 10-07-2022 Patient encounter procedure Eugene Osuna MD Work Phone: XY-Apqauwdngfmw-Qppruteh [place] 130 DO Work Phone: Start: 10-06-2022 End: 10-07-2022 ambulatory Servando GRANADOS [employer] Other Start: 10-06-2022 Telephone encounter Kevan angel [facility] Start: 09-13-2022 End: 09-13-2022 ambulatory Eugene Nicholson II Other [employer] Other Start: 09-13-2022 Encounter by sheela harding Eugene Petersle II [facility] Start: 09-10-2022 End: 09-10-2022 ambulatory Eugene Petersle II Other [employer] Other Start: 09-10-2022 Office outpatient ne w 45 minutes Eugene Petersle II [facility] Start: 09-04-2022 End: 09-04-2022 Patient encounter procedure Services [facility] Work Phone: [facility] Work Phone: Start: 09-03-2022 End: 09-04-[address] ELADIO REESE Facility: Start: 09-03-2022 End: 09-04-2022 ambulatory ALVINA PRYOR Facility:[facility] Start: 09-01-2022 End: 09-01-2022 ambulatory Services [facility] Work Phone: [facility] Work Phone: Start: 09-01-2022 End: 09-01-2022 Discharged Recurring Services [facility] Work Phone: [facility]-Infusion Therapy - O/P Start: 08-29-2022 End: 08-29-2022 Admission to same day surgery center Services [facility] [employer] Work Phone: [facility]-Surgery Center [place] Start: 08-27-2022 End: 08-27-2022 ambulatory Services [facility] Work Phone: [facility] Work Phone: Start: 08-27-2022 End: 08-27-2022 Patient encounter procedure Services [employer] Work Phone: [facility] Ygc-Xmb-Ofcdkdjb Testing Start: 08-26-2022 End: 08-26-2022 ambulatory Kevan Hyman Other [employer] Other Start: 08-26-2022 Office outpatient visit 15 minutes Kevan Hyman [facility] Start: 07-29-2022 End: 07-29-2022 ambulatory Jesesarina Kingno Other [employer] Other Start: 07-29-2022 Telephone encounter Jesesarina riverao [facility] Start: 07-27-2022 Chart Update Eugene altamirano MD Work Phone: BX-Shqvpbcejdfj-Mvwkeb 210 Work Phone: Start: 07-24-2022 End: 07-24-2022 ambulatory Corey Moore Other [email or web address] Other Start: 07-24-2022 Telephone encounter Corey ROSENTHAL [facility] Start: 07-22-2022 End: 07-30-[address] DOCTOR LYNCH Facility: Start: 07-21-2022 AUDIT Rina silva MD Work Phone: HB-Yndvgvisv-Kctfnbht B 101 Work Phone: Start: 07-17-2022 Rx Renewal Rina silva MD Work Phone: XA-Urkgywtki-YRXOE [place] [address] Work Phone: Start: 07-08-[address] Eugene Osuna Facility:[facility] Start: 07-08-2022 Office outpatient visit 15 minutes Eugene Osuna MD Work Phone: MB-Kikrmtwemxbi-Psffsf 210 Work Phone: Start: 07-08-2022 Patient encounter procedure Eugene Osuna MD Work Phone: ZW-Qwxnmnwyfhfc-Vflnxnih [place] 130 DO Work Phone: Start: 05-30-2022 End: 05-30-2022 Patient encounter procedure Services [facility] Work Phone: [facility]-Ultrasound [place] Start: 05-21-2022 End: 05-21-[address] EULALIA Bee [facility] [employer] Other Start: 05-21-2022 Office outpatient visit 15 minutes Kevan Balldano [facility] Start: 05-07-2022 End: 05-07-2022 ambulatory Bretter Yenni Other [employer] Other Start: 05-07-2022 Telephone encounter Kevan riverao [facility] Start: 04-09-2022 End: 04-09-2022 ambulatory Christenriqueer Yenni Other [employer] Other Start: 04-09-2022 Telephone encounter Kevan riverao [facility] Start: 03-20-2022 End: 03-20-2022 ambulatory Hebert Betancourtdeo Other [employer] Other Start: 03-20-2022 Telephone encounter Hebert Carolina [facility] Start: 03-18-2022 End: 03-18-2022 ambulatory Hebert Carolina Other [employer] Other Start: 03-18-2022 Telephone encounter Hebert Carolina [facility] Start: 03-11-2022 End: 03-11-2022 ambulatory Christopher Yenni Other [employer] Other Start: 03-11-2022 Encounter by sheela Mathur Yenni [facility] Start: 03-10-2022 End: 03-10-2022 ambulatory Christopher Yenni Other [employer] Other Start: 03-10-2022 Telephone encounter Kevan riverao [facility] Start: 03-05-2022 End: 03-05-2022 ambulatory Hebert Carolina Other [employer] Other Start: 03-05-2022 Telephone encounter Hebert Carolina [facility] Start: 02-11-2022 Office outpatient visit 25 minutes Rina Vallejo MD Work Phone: BV-Bxccokjvk-Isaehhvd B 101 Work Phone: Start: 01-29-2022 End: 01-29-2022 ambulatory Christopher Yenni Other [employer] Other Start: 01-29-2022 Telephone encounter Christenriqueer Lizzy jeanne [facility] Start: 01-25-2022 End: 01-25-2022 ambulatory Hebert Hydeo Other [employer] Other Start: 01-25-2022 Telephone encounter Hebert Betancourtkes [facility] Start: 01-06-2022 End: 01-06-2022 ambulatory Christopher Yenni Other [employer] Other Start: 01-06-2022 Telephone encounter Christenriqueer Lizzy jeanne [facility] Start: 12-05-2021 End: 12-05-2021 ambulatory Christopher Yenni Other [employer] Other Start: 12-05-2021 Office outpatient visit 15 minutes Christopher Yenni [facility] Start: 11-21-2021 End: 11-21-2021 ambulatory Christopher Yenni Other [employer] Other Start: 11-21-2021 Telephone encounter Hebert Hydeo [facility] Start: 11-08-2021 End: 11-08-2021 ambulatory Christopher Yenni Other [employer] Other Start: 11-08-2021 Telephone encounter Christenriqueer Lizzy jeanne [facility] Start: 10-28-2021 End: 10-28-2021 ambulatory Hebert Hykes Other [employer] Other Start: 10-28-2021 Office outpatient visit 25 minutes Hebert Carolina [facility] Start: 10-25-2021 End: 10-25-2021 ambulatory Hebert Carolina Other [employer] Other Start: 10-25-2021 Telephone encounter Hebert Carolina [facility] Start: 10-07-2021 End: 10-07-2021 ambulatory Christenriqueer Yenni Other [employer] Other Start: 10-07-2021 Telephone encounter Christsarina riverao [facility] Start: 10-03-2021 End: 10-03-2021 ambulatory Christopher Yenni Other [employer] Other Start: 10-03-2021 Telephone encounter Christsarina riverao [facility] Start: 08-22-2021 End: 08-22-2021 ambulatory Christopher Yenni Other [employer] Other Start: 08-22-2021 Office outpatient visit 25 minutes Christenriqueer Yenni [facility] Start: 07-25-2021 End: 07-25-2021 ambulatory Hebert Carolina Other [email or web address] Other Start: 07-25-2021 Telephone encounter Hebert Betancourtdeo [facility] Start: 07-19-2021 Office outpatient visit 25 minutes Presley Greenberg MD Work Phone: [facility] 130 DO Work Phone: Start: 06-30-2021 Chart Update Eugene altamirano MD Work Phone: [facility] 210 Work Phone: Start: 06-24-2021 Patient encounter procedure Eugene Osuna MD Work Phone: [facility] 130 DO Work Phone: Start: 06-21-2021 AUDIT Eugene altamirano MD Work Phone: II-Yjnlfcrhodty-Hsgfnk 210 Work Phone: Start: 06-18-2021 Office outpatient visit 15 minutes Kevan Hyman [facility] Start: 05-29-2021 AUDIT Eugene altamirano MD Work Phone: PT-Bvbkjxzfutgq-Bfjtct 210 Work Phone: Start: 01-29-2021 Office outpatient visit 25 minutes Adriana Desai MD Work Phone: FX-Lxzvrtzksedf-Tnvripnn [place] 130 DO Work Phone: Start: 10-16-2020 Patient encounter procedure Adriana Miskovsky MA-Jxelitqaeijb-Qkgnlkta Work Phone: Start: 08-27-2020 Patient encounter procedure Adriana Miskovsky YF-Qbqkdrflgwps-Ynptsceo Work Phone: Start: 08-13-2020 Patient encounter procedure Adriana Miskovsky KV-Xidgbrpwoubb-Idlkqpei Work Phone: Start: 07-30-2020 Patient encounter procedure Adriana Miskovsky NI-Lgfytkplhsbb-Rsovemie Work Phone: Start: 07-17-2020 Patient encounter procedure Adriana Miskovsky DT-Qzamgutzgxns-Gpedsbpy Work Phone: Start: 07-02-2020 Patient encounter procedure Adriana Miskovsky VC-Urudxseetsov-Nnmmmqxc Work Phone: Start: 07-02-2020 Patient encounter procedure Adriana Miskovsky MV-Fkygedqkjajh-Inmlgtbm Work Phone: Start: 06-25-2020 Patient encounter procedure Adriana Miskovsky CR-Fllghrpykghm-Swjcnsgc Work Phone: Start: 06-12-2020 Patient encounter procedure Adriana Miskovsky OT-Xzhnhimpganr-Gcmoywfe Work Phone: Start: 05-24-2020 Patient encounter procedure Saroj Burnett MD YT-Cbazrbhrn-Nuqchrgu B 101 Work Phone: Start: 05-14-2020 Patient encounter procedure Saroj Burnett MD SK-Qidntakqp-Wzuqqqur B 101 Work Phone: Start: 04-23-2020 Patient encounter procedure Saroj Burnett MD ED-Ulvvzngmw-Okydbjws B 101 Work Phone: Start: 04-19-2020 Patient encounter procedure Saroj Burnett MD BW-Yhyeotbay-Jwhjatzj B 101 Work Phone: Start: 03-19-2020 Patient encounter procedure Saroj Burnett MD XR-Enrezkcyp-Akoztjvp B 101 Work Phone: Start: 02-20-2020 Patient encounter procedure Saroj Burnett MD DK-Pwdrwszyy-Zhdaylsh B 101 Work Phone: Start: 02-13-2020 Patient encounter procedure Eugene Osuna ZL-Jhugrhyvdtld-Rbbftsfq Work Phone: Start: 01-02-2020 Patient encounter procedure [place] AL-Hczhfoygjtgw-Trcxkmjl Work Phone: Start: 10-24-2019 Patient encounter procedure [place] OL-Cjmynhslaydi-Koeigqpf Work Phone: Start: 09-27-2019 Patient encounter procedure [place] CR-Oxoumiqjpocs-Dchrwndd Work Phone: Start: 09-20-2019 Patient encounter procedure [place] QR-Hzcpbsmjpuxn-Muljqpxp Work Phone: Start: 06-27-2019 Patient encounter procedure [place] DP-Byggnifilmlx-Jkbcyamo Work Phone: Start: 05-18-2019 Patient encounter procedure [place] JX-Kzfrxzsffutm-Gonawwyy Work Phone: Start: 04-25-2019 Patient encounter procedure [place] AO-Goyxjfvgjiin-Iorqyedd Work Phone: Start: 02-21-2019 Patient encounter procedure [place] GK-Insjzhkthwab-Elbypezp Work Phone: Start: 01-03-2019 Patient encounter procedure Marianna Escamilla DK-Tatbgyzeeeqw-Tavbunmm Work Phone: Start: 12-06-2018 Patient encounter procedure Marianna OLIVARESXV-Rankhzzcerya-Zxbkiyoj Work Phone: Start: 11-23-2018 Patient encounter procedure Marianna Escamilla SO-Fokyoarhsmcz-Fjajrhqh Work Phone: Start: 11-22-2018 Patient encounter procedure Marianna OLIVARESWO-Mjwqwsehxmoz-Bvcmitrf Work Phone: Start: 09-27-2018 Patient encounter procedure [place] OLIVARESIM-Jaakpxbdmdvv-Fzmmnzdm Work Phone: Start: 08-24-2018 Patient encounter procedure Marianna OLIVARESWT-Vzvxyzrxwyyn-Inzmulyv Work Phone: Start: 07-20-2018 Patient encounter procedure [place] OLIVARESCU-Qtxniwnocqjk-Gakscije Work Phone: Start: 06-21-2018 Patient encounter procedure Marianna OLIVARESAP-Ebzkdudiurhy-Rvafxbsi Work Phone: Start: 05-24-2018 Patient encounter procedure Marianna OLIVARESOJ-Fipalatmghgi-Gcpzkpss Work Phone: Start: 03-29-2018 Patient encounter procedure Marianna OLIVARESWE-Yofjrmpsrsgl-Zhgxbvhp Work Phone: Start: 03-01-2018 Patient encounter procedure Marianna OLIVARESPB-Kjesvysgaety-Oxajxxyb Work Phone: Start: 02-16-2018 Patient encounter procedure Marianna OLIVARESUJ-Uxphybbxnoav-Ptbubyfc Work Phone: Start: 02-01-2018 Patient encounter procedure Marianna OLIVARESYL-Rlbrremyiohz-Mhvijpwj Work Phone: Patient encounter status Adriana Desai MD Work Phone: FH-Xonpbvckdfji-Sxuutpha [place] 130 DO Work Phone: Procedures Date Procedure Procedure Detail Performing Clinician Start: 09-08-2023 Dual energy X-ray absorptiometry Services [facility] Work Phone: Start: 09-08-2023 Screening mammography of bilateral breasts Services [facility] Work Phone: Start: 08-28-2023 EMG AND NERVE CONDUCTION RINA VALLEJO Start: 08-28-2023 EMG AND NERVE CONDUCTION Rina Vallejo MD Work Phone: Start: 07-19-2023 H/O: artificial joint Presence of right artificial shoulder joint [facility] 1 Start: 01-09-2023 Computed tomography of abdomen and pelvis with contrast Services [facility] Work Phone: Start: 12-31-2022 Aerobic microbial culture Services [facility] [employer] Work Phone: Start: 12-31-2022 Anaerobic microbial culture Services Fam armani [employer] Work Phone: Start: 12-31-2022 Investigation of transfusion reaction Services [employer] Phone: Start: 12-31-2022 Total hysterectomy via vaginal approach Services [facility] Work Phone: Start: 11-21-2022 MRI of right knee Services [employer] Phone: Start: 10-29-2022 CT of chest without contrast Services [employer] Phone: Start: 09-04-2022 Screening mammography of bilateral breasts Services [employer] Phone: Start: 08-29-2022 Bacteria identification test Services [employer] Phone: Start: 08-29-2022 Hysteroscopy Services [facility] Work Phone: Start: 08-27-2022 SARS Antigen (LFIA) Services [employer] Phone: Start: 05-30-2022 Ultrasonography of limb Services [employer] Phone: Start: 08-27-2021 Mammography [facility] 1 Start: 01-15-2021 Adult depression screening assessment Ivelisse Thomas RN Start: 04-23-2020 Echocardiography Start: 02-13-2020 Cul bact xcpt urine blood/stool aerobic isol Eugene Osuna Start: 01-03-2020 CT Up Extremity without Contrast [place] Renko Bacteria identificat ion test Services [facility] Work Phone: H/O: artificial joint Status pos t replacement of right shoulder joint Saroj Burnett MD History of Anterior Spinal Diskectomy, Osteophytectomy Cerv Interspace Marianna Escamilla Prosthetic arthropla sty of shoulder Marianna Escamilla Repair of musculoten dinous cuff of shoulder Marianna Escamilla Plan of Treatment Date Care Activity Detail Author Start: 06-18-2031 DTaP,Tdap and Td Vac cines (2 - Td or Tdap) DTaP,Tdap and Td Vaccines (2 - Td or Tdap) [facility] Start: 06-18-2031 DTaP/Tdap/Td Vaccine s (2 - Td or Tdap) DTaP/Tdap/Td Vaccines (2 - Td or Tdap) [facility] Start: 08-25-2024 Tobacco Screening Tobacco Screening [facility] Start: 05-26-2024 Adult BMI Screening Adult BMI Screen ing [facility] Start: 04-28-2024 FUV, Provider: Eugene Osuna, Status: Pen, Time: 11:00 AM FUV, Provider: Eugene Osuna, Status: Pen, Time: 11:00 AM BB-Mkuzrkkekflc-Ya sman 200 Work Phone: Start: 04-28-2024 End: 04-28-2024 Patient encounter procedure 04/28/2024 11:00 AM EDT Office Visit [facility] [address] [facility] [address] [place] [address] Eugene Osuna MD [address] [place] [address] Dr Meche Mayer, [facility] [address] [place] [address] [facility] Start: 04-20-2024 End: 04-20-2024 Patient encounter procedure 04/20/2024 11:00 AM EDT Office Visit [facility] [address] [address] Rina Vallejo MD [address] [facility], [address], [facility] [address] [place] [address] [facility] Start: 10-14-2023 End: 10-14-2023 Patient encounter procedure 10/14/2023 10:45 AM EST Office Visit [facility] [address] [place] [id number] Vivian Ramos PA-C [address] [place] [address] [facility] Start: 09-01-2023 COVID-19 Vaccine (4 - Pfizer series) COVID-19 Vaccine (4 - Pfizer series) [facility] Start: 05-05-2023 FUV, Provider: Eugene Osuna, Status: Pen, Time: 1:00 PM FUV, Provider: Eugene Osuna, Status: Pen, Time: 1:00 PM KK-Myqkxzntbthr-Ae [facility] 130 DO Work Phone: Start: 01-09-2023 Bacteria identified in Blood by Culture Blood Culture [facility] Start: 01-09-2023 Bacteria identified in Urine by Culture Urine Culture [facility] Start: 12-31-2022 Hospital admission [facility] Start: 12-31-2022 End: 12-31-2022 [facility] Start: 10-07-2022 FUV, Provider: Eugene Osuna, Status: Pen, Time: 1:45 PM FUV, Provider: Eugene Osuna, Status: Pen, Time: 1:45 PM QC-Ascammhaxbog-Uk [facility] 130 DO Work Phone: Start: 08-29-2022 End: 08-29-2022 [facility] Start: 08-27-2022 Screening for malign ant neoplasm of breast Mammogram [facility] Start: 01-15-2022 Depression Screening Depression [facility] Start: 06-27-2021 SELENE, Provider : Rina Vallejo, Status: Pen, Time: 10:00 AM SELENE, Provider: Rina Vallejo, Status: Pen, Time: 10:00 AM MT-Uhwgxjccttsq-Wx sman 210 Work Phone: Start: 06-24-2021 VIRMICHAEL, Provider : Rina Vallejo, Status: Pen, Time: 4:00 PM VIRFUVJOHN, Provider: Rina Vallejo, Status: Pen, Time: 4:00 PM OQ-Gqkhsdfmjrak-Sl sman 210 Work Phone: Start: 06-24-2021 FUV, Provider: Eugene Osuna, Status: Pen, Time: 10:45 AM FUV, Provider: Eugene Osuna, Status: Pen, Time: 10:45 AM PG-Eqltfcwvgbmq-Lc sman 210 Work Phone: Start: 05-06-2021 FUV, Provider: Eugene Osuna, Status: Pen, Time: 10:30 AM FUV, Provider: Eugene Osuna, Status: Pen, Time: 10:30 AM FB-Pcqotpojbipr-Ea [facility] 130 DO Work Phone: Start: 05-24-2020 Autonomic Testing Autonomic Testing PU-Yynjyukap-Fchfi arturo B 101 Work Phone: Start: 05-24-2020 EEG, Routine EEG, Routine MG-Neurolo gy-Westl arturo B 101 Work Phone: Start: 04-19-2020 Echocardiography Echocardiogram MG-N eurology-Westl arturo B 101 Work Phone: Start: 01-03-2020 CT Up Extremit y without Contrast VA-Cnpzuvaglabv-Bz [place] Work Phone: Start: 1986 Screening for malign ant neoplasm of cervix [facility] Start: 1983 Adult BMI Follow Up Plan Adult BMI Follow Up Plan [facility] Start: 1983 Hepatitis C screening Hepatitis C [facility] Start: 1966 MMR Vaccines (1 of 1 - Standard series) MMR Vaccines (1 of 1 - Standard series) [facility] Start: 1965 Hepatitis B Vaccines (1 of 3 - 3-dose series) Hepatitis B Vaccines (1 of 3 - 3-dose series) [facility] Start: 1965 HIV screening HIV Screening [facility] Start: 1965 Lipid panel Lipid Panel [facility] Start: 1965 Screening for malign ant neoplasm of colon [facility] Start: 1965 Yearly Adult Physical Yearly Adult P hysical [facility] Patient Education Diverticulitis (DC) [facility] Work Phone: Patient referral [facility] Work Phone: MG-Orthopaedics -We [place]lake Work Phone: NEGATED: Highlighted row has been ruled out! Planned Goals not documented LP-Kcidrzodairs-Yy [place]lake Work Phone: Immunizations Immunization Date Immunization Notes Care Provider Fa amy 07-07-2023 Influenza, injectabl e, Madin Evonne Canine Kidney, preservative free, quadrivalent [facility] [place] 1 [facility] Work Phone: 07-07-2023 Pfizer COVID-19 vaccine, Fall 2022, 12 years and older, (30mcg/0.3mL) [facility] [place] 1 [facility] Work Phone: 06-18-2022 COVID-19 Pfizer (bivalent) Kevan Hyman Other [facility] 06-18-2022 Influenza, injectabl e, Madin Evonne Canine Kidney, preservative free, quadrivalent Eugene Osuna MD Work Phone: OG-Zidvhifyxshn-Grum an 200 Work Phone: 02-17-2022 COVID-19 mRNA, Comirnaty (Pfizer) [facility] Work Phone: [facility] 02-17-2022 COVID-19 Pfizer Kevan Hyman Other [employer] Other 07-10-2021 COVID-19 Vaccine Pfizer - Documentation Purposes Only Kevan Hyman Other [facility] 06-18-2021 influenza, injectabl e, quadrivalent, contains preservative Eugene Osuna MD Work Phone: [facility] 06-18-2021 tetanus toxoid, reduced diphtheria toxoid, and acellular pertussis vaccine, adsorbed Eugene Osuna MD Work Phone: [facility] 12-07-2020 Pfizer-BioNTech COVID-19 Vacc 30 MCG/0.3ML Intramuscular Suspension Eugene Osuna MD Work Phone: [facility] 11-19-2020 COVID-19 Vaccine Pfizer - Documentation Purposes Only Kevan Hyman Other [employer] Other 11-16-2020 Pfizer-BioNTech COVID-19 Vacc 30 MCG/0.3ML Intramuscular Suspension Eugene Osuna MD Work Phone: [facility] 09-19-2020 zoster vaccine recombinant Eugene Osuna MD Work Phone: [place] [address] DO Work Phone: 07-20-2020 influenza, injectabl e, quadrivalent, contains preservative Eugene Osuna MD Work Phone: [facility] 07-16-2020 influenza, injectabl e, quadrivalent, preservative free [address] Work Phone: 07-16-2020 zoster vaccine recombinant Eugene Osuna MD Work Phone: [facility] 06-21-2020 pneumococcal polysaccharide vaccine, 23 valent Eugene Osuna MD Work Phone: [place] [address] DO Work Phone: 07-11-2019 influenza, injectabl e, quadrivalent, contains preservative Eugene Osuna MD Work Phone: [facility] 07-11-2019 pneumococcal conjuga te vaccine, 13 valent Eugene Osuna MD Work Phone: RB-Xjsibnezfano-Hivc [place] [address] DO Work Phone: 07-20-2018 influenza, injectabl e, quadrivalent, contains preservative [facility] 1 [facility] Work Phone: 07-20-2018 influenza, injectable,quadrivalen t, preservative free, pediatric Christopher Yenni Other [facility] [employer] Other 07-13-2018 influenza, injectabl e, quadrivalent, contains preservative Eugene Osuna MD Work Phone: [facility] 07-14-2017 influenza, injectable,quadrivalen t, preservative free, pediatric Christopher Yenni Other [facility] [employer] Other 07-14-2017 influenza, injectabl e, quadrivalent, contains preservative Eugene Osuna MD Work Phone: LJ-Cfesjiubwzye-Gkgv [place] [address] DO Work Phone: 07-07-2016 influenza, seasonal, injectable, preservative free Eugene Osuna MD Work Phone: [facility] 06-19-2015 influenza, high dose seasonal, preservative-free Eugene Osuna MD Work Phone: VA-Hqkucvppmjan-Iukh [place] [address] DO Work Phone: 08-08-2014 influenza, seasonal, injectable, preservative free Eugene Osuna MD Work Phone: MB-Sklgutnprohh-Vxns [place] [address] DO Work Phone: 10-20-2013 influenza, seasonal, injectable, preservative free Eugene Osuna MD Work Phone: PZ-Vizefcqfcksu-Fkli [place] [address] DO Work Phone: Payers Date Payer Category Payer Medicaid [facility] MEDICA[facility] O [id number] 2022-Present [phone] [address] [place] [address] [id number] 2022 Self-pay [id number] 2018 Unknown 1965 Unknown [id number] 2.16.840.1.583046.3.579.2.356 1965 Unknown [id number] 2.16.840.1.878890.3.579.2.356 1965 Unknown [id number] 2.16.840.1.100900.3.579.2.196 1965 Unknown [id number] 2.16.840.1.756652.3.579.2.593 1965 Unknown [id number] 2.16.840.1.806476.3.579.2.593 1965 Unknown [id number] 2.16.840.1.039319.3.579.2.593 1965 Unknown [id number] 2.16.840.1.960885.3.579.2.593 1965 Unknown [id number] 2.16.840.1.447785.3.579.2.593 1965 Unknown [id number] 2.16.840.1.629768.3.579.2.356 1965 Unknown [id number] 2.16.840.1.130084.3.579.2.356 1965 Unknown [id number] 2.16.840.1.989809.3.579.2.356 1965 Unknown [id number] 2.16.840.1.676059.3.579.2.727 1965 Unknown [id number] 2.16.840.1.295338.3.579.2.727 1965 Unknown [id number] 2.16.840.1.757980.3.579.2.727 1965 Unknown [id number] 2.16.840.1.644969.3.579.2.72 1965 Unknown [id number] 2.16.840.1.812863.3.579.2.72 1965 Unknown [id number] 2.16.840.1.433667.3.579.2.72 1965 Unknown [id number] 2.16.840.1.321987.3.579.2.1244 1965 Unknown [id number] 2.16.840.1.749117.3.579.2.1245 1959 Medicaid [id number] 1959 Unknown [id number] 2.16.840.1.335113.19 Unknown [id number] 2.16.840.1.621378.3.579.2.531 Unknown [id number] 2.16.840.1.173911.3.579.2.531 Unknown [id number] 2.16.840.1.470970.3.579.2.531 Unknown [id number] 2.16.840.1.684858.3.579.2.531 Unknown [id number] 2.16.840.1.766282.3.579.2.531 Unknown [id number] 2.16.840.1.350473.3.579.2.531 Unknown [id number] 2.16.840.1.795459.3.579.2.531 Social History Date Type Detail Facility Start: 09-25-2020 End: 07-21-2023 Current every day smoker Current every day smoker NL-Uexjilakucxa-Lkrfc [place] 130 DO Work Phone: Start: 09-25-2020 End: 07-21-2023 Sex Assigned At [employer] Other Start: 11-11-2021 End: 07-09-2022 Tobacco smoking status NHIS Ex-smoker (finding) [facility] Start: 1965 Sex Assigned At Female F [facility] Start: 01-09-2023 End: 01-09-2023 Tobacco smoking status NHIS Never smoked tobacco (finding) [facility] Start: 07-09-2022 End: 07-21-2023 Tobacco use and exposure Smokeless tobacco non-user [facility] Work Phone: Start: 07-21-2023 Alcohol intake Lifetime non-d nitza (finding) [facility] Work Phone: Start: 08-17-2018 Gender identity Identifies as female gender (finding) [facility] Work Phone: Start: 10-13-2021 Sexual orientation Heterosexual (fin ding) [facility] Work Phone: Start: 08-18-2023 End: 08-28-2023 Exposure to SARS-CoV-2 (event) Not sure [facility] Work Phone: History of tobacco use [facility] Adolescent depressio n screening assessment 0 [facility] Start: 07-02-2017 Alcohol Comment rarely [facility] NEGATED: Highlighted row - - VO-Shqxjrwcyhop-Iqsx l ake Work Phone: Medical Equipment Procedure Code Equipment Code Equipment Original Text Equipment Identifier Dates [place], Biocomposite, Swivelock, 4.75mm X 24.5m Case [id number] Start: 12-04-2017 Comment on above: Description: Convert ed from [facility]. Please see archived information for full log information. Screw, Locking Bone, Rsp, 5.0mm X 14mm Case [id number] Start: 11-11-2018 Comment on above: Description: Convert ed from [facility]. Please see archived information for full log information. Spacer Altivate Reverse 8mm Small Case [id number] Start: 04-26-2020 Comment on above: Description: Convert ed from [facility]. Please see archived information for full log information. Head, Glenoid, Rsp, W/ Retaining Screw, 4mm X 32mm Case [id number] Start: 11-11-2018 Comment on above: Description: Convert ed from [facility]. Please see archived information for full log information. Spacer, Altivate Reverse, 8mm, Small Case [id number] Start: 04-26-2020 Comment on above: Description: Convert ed from [facility]. Please see archived information for full log information. Goals Date Patient Goal Desired Activity /State Functional Status Date Assessment Result Facility 12-31-2022 Functional status Patient at Baseline [facility] Work Phone: NEGATED: Highlighted row Functional performance Functional status health issues are not documented Disease XM-Chzkpxbziojy-Xtgm [place] Work Phone: Mental Status Date Assessment Result Facility 12-31-2022 Cognitive function Cognitive Sta tus Patient at Baseline [facility] Work Phone: NEGATED: Highlighted row Cognitive function [Interpretation] Cognitive status health issues are not documented Disease WX-Falapnfbcosq-Rexa [place] Work Phone: Clinical Notes 04-26-2020 to 10-01-2023 Note Date & Type Note Facility 10-01-2023 Evaluation note Encounter Date Diagnosis Assessment Notes Sep, Narcolepsy (ICD-10 - G47.419) [employer] Other 01-17-2024 Miscellaneous Notes* Telephone Encounter - Ivelisse Thomas RN - 09/30/2023 12:20 PM EST Last OV: 08/25/2023 Next OV: 10/14/2023 OARRS appropriate: yes Last UDS: n/a Pharmacy: [facility] Patient called and requested refill for Etodolac and Pregabalin. Pregabalin was last filled 09/21/2023 therefore it is too soon to process the refill request. This can be done at patient's next office visit. [facility] Telephone encounter Note* Telephone Encounter - Ivelisse Thomas RN - 09/30/2023 12:20 PM EST Last OV: 08/25/2023 Next OV: 10/14/2023 OARRS appropriate: yes Last UDS: n/a Pharmacy: [facility] Patient called and requested refill for Etodolac and Pregabalin. Pregabalin was last filled 09/21/2023 therefore it is too soon to process the refill request. This can be done at patient's next office visit. [facility] [id number] Evaluation note* Encounter Date Diagnosis Assessment Notes Treatment Notes Treatment Clinical Notes Sep, Gastroesophageal ref lux disease without esophagitis (ICD-10 - K21.9) [facility] Other 01-08-2024 Evaluation note* Encounter Date Diagnosis Assessment Notes Treatment Notes Treatment Clinical Notes Sep, Heartburn (ICD-10 - R12) Pt states she has heartburn every night. Pt states the omeprazole is not helping. Pt to proceed with EGD [place]/ pt advised to stop PPI a week prior Sep, Dyspepsia (ICD-10 - K30) [facility] Other 12-21-2023 Evaluation note* Encounter Date Diagnosis Assessment Notes Treatment Notes Treatment Clinical Notes Aug, Nausea and vomiting, intractability of vomiting not specified, unspecified vomiting type (ICD-10 - R11.2) [facility] Other 12-13-2023 Evaluation note* Encounter Date Diagnosis Assessment Notes Treatment Notes Treatment Clinical Notes Aug, Narcolepsy (ICD-10 - G47.419) Aug, Pulmonary nodule (ICD-10 - R91.1) Aug, Cough variant asthma (ICD-10 - J45.991) [facility] Other 12-12-2023 Evaluation note* Encounter Date Diagnosis Assessment Notes Treatment Notes Treatment Clinical Notes Aug, Nausea and vomiting, intractability of vomiting not specified, unspecified vomiting type (ICD-10 - R11.2) [facility] Other 11-22-2023 Evaluation note* Encounter Date Diagnosis Assessment Notes Treatment Notes Treatment Clinical Notes Jul, Narcolepsy (ICD-10 - G47.419) [facility] Other 11-21-2023 Evaluation note* Encounter Date Diagnosis Assessment Notes Treatment Notes Treatment Clinical Notes Jul, Dyspepsia (ICD-10 - R10.13) [facility] Other 10-18-2023 Evaluation note* Encounter Date Diagnosis Assessment Notes Treatment Notes Treatment Clinical Notes Jun, Narcolepsy (ICD-10 - G47.419) [facility] Other 10-16-2023 Evaluation note* Encounter Date Diagnosis Assessment Notes Treatment Notes Treatment Clinical Notes Jun, Cyclic vomiting syndrome (ICD-10 - G43.A0) [facility] Other 09-11-2023 Evaluation note* Encounter Date Diagnosis Assessment Notes Treatment Notes Treatment Clinical Notes May, Nausea and vomiting, intractability of vomiting not specified, unspecified vomiting type (ICD-10 - R11.2) [facility] Other 09-06-2023 Evaluation note* Encounter Date Diagnosis Assessment Notes Treatment Notes Treatment Clinical Notes May, Narcolepsy (ICD-10 - G47.419) May, Pulmonary nodule (ICD-10 - R91.1) May, Cough variant asthma (ICD-10 - J45.991) [facility] Other 08-21-2023 Evaluation note* Encounter Date Diagnosis Assessment Notes Treatment Notes Treatment Clinical Notes Apr, Cyclic vomiting syndrome (ICD-10 - G43.A0) Continue amitriptyline 75 mg as directed Apr, GERD (gastroesophageal reflux disease) (ICD-10 - K21.9) Stop pantoprazole Patient may use gaviscon at bedtime Rto 3 months [employer] Other 08-21-2023 Evaluation note* Encounter Date Diagnosis Assessment Notes Treatment Notes Treatment Clinical Notes Apr, Narcolepsy (ICD-10 - G47.419) [facility] Other 07-17-2023 Evaluation note* Encounter Date Diagnosis Assessment Notes Treatment Notes Treatment Clinical Notes Mar, Narcolepsy (ICD-10 - G47.419) [facility] Other 06-22-2023 Evaluation note* Encounter Date Diagnosis Assessment Notes Treatment Notes Treatment Clinical Notes Feb, Cyclic vomiting syndrome (ICD-10 - G43.A0) Vomiting is worse in the morning, but the nausea is all day. Will increase the amitriptyline to 75mg once at bedtime. Patient recommened to stop all marijuana use for 4 weeks to see if this is a factor for her nausea and vomiting. RTO in 6 weeks Feb, Nausea (ICD-10 - R11.0) Refill Zofran 4 mg tablet. [facility] Other 05-10-2023 Evaluation note* Encounter Date Diagnosis Assessment Notes Treatment Notes Treatment Clinical Notes January, Narcolepsy (ICD-10 - G47.419) [facility] Other 04-04-2023 Evaluation note* Encounter Date Diagnosis Assessment Notes Treatment Notes Treatment Clinical Notes Dec, Narcolepsy (ICD-10 - G47.419) [facility] Other 04-03-2023 Evaluation note* Encounter Date Diagnosis Assessment Notes Treatment Notes Treatment Clinical Notes Dec, Nausea and vomiting, intractability of vomiting not specified, unspecified vomiting type (ICD-10 - R11.2) [facility] Other 03-27-2023 NotePROCEDURE: Right trigeminal nerve injection. Physician: Anne Limon MD PREOP/POSTOP DIAGNOSIS: Pain secondary to trigeminal neuralgia. SOLUTION USED: Marcaine 0.125% 1cc, Kenalog 10 mg COMPLICATIONS: None. ANESTHESIA: Local. PROCEDURE: After informed consent was obtained from the patient, the patient was placed in the sitting position. Skin overlying the area was prepped with alcohol. The fluoroscope was tilted until the foramen ovale was visualized. A 25 gauge needle was inserted until the tip was seen near the foramen ovale, using both AP and lateral views. The needle tip was walked off anteriorly, and 2 mL of solution were injected. Postoperatively, needles were removed. The patient tolerated the procedure well with no complications. Electronically signed by Ashly RUVALCABA, Anne Greene 12/08/22 11:01 [facility] 12-08-2022 NotePROCEDURE: Right trigeminal nerve injection. Physician: Anne Limon MD PREOP/POSTOP DIAGNOSIS: Pain secondary to right trigeminal neuralgia. SOLUTION USED: Marcaine 0.25% 1cc, Kenalog 10 mg COMPLICATIONS: None. ANESTHESIA: Minimal Sedation, in the form of an MKO (Midazolam/Ketamine/Ondansetron) Melt x2, will be utilized during the procedure for patient comfort. The patient's Mallampati score is 2. The patient's ASA status is 3. PROCEDURE: After informed consent was obtained from the patient, the patient was placed in the sitting position. Skin overlying the area was prepped with alcohol. The fluoroscope was tilted until the foramen ovale was visualized. A 25 gauge needle was inserted until the tip was seen near the foramen ovale, using both AP and lateral views. The needle tip was walked off anteriorly, and 2 mL of solution were injected. Postoperatively, needles were removed. The patient tolerated the procedure well with no complications. This document serves as a record of the services and decisions personally performed and made by theattending provider. It was created on his/her behalf by a trained medical historian. The creation of this document is based on the provider?s statements to the medical historian. Electronically signed by GiAnne quintanilla MD 12/08/22 11:00 EDT Electronically signed by Gretta Chiquita L 12/08/2022 10:55 [facility]03-27-2023 NoteHistory of Present Illness CHIEF COMPLAINT: Trigeminal neuralgia HISTORY OF PRESENT ILLNESS: Debilitating right-sided facial and head pain. The patient's symptoms have failed physical and medical measures. PHYSICAL EXAM: HEENT: Normocephalic, atraumatic. RESPIRATIONS: Unlabored ABDOMEN: Soft nontender MUSCULOSKELETAL: 5/5 strength and sensation in bilateral upper and lower extremities. REVIEW OF SYSTEMS: Brief review of systems was conducted. Complaints are noncontributory for cauda equina or myelopathic complaints, fever chills or sweats or unintended weight loss or gain. ASSESSMENT: Trigeminal neuralgia PLAN: The patient meets criteria for diagnostic and therapeutic trigeminal nerve block. Benefits risks and alternatives have been discussed, we agree to proceed. Physical Exam Vitals & Measurements T: 36.3 ?C (Temporal Artery) HR: 80 (Peripheral) RR: 16 BP: 109/73 SpO2: 95% HT: 162 cm WT: 90.5 kg Additional Vitals No qualifying data available. Problem List/Past Medical History Ongoing No qualifying data Historical No qualifying data Procedure/Surgical History bladder surgery bunionectomy- right cervical spine surgery- 2002,2016 cholecystectomy DMR Bilat L4/5, L5/S1 hypogastric injection RFA- lumbar X11 SI joint injection X4 tonsillectomy tubal ligation wrist fracture surgery-right right total shoulder surgery (10/16/2018) foot surgery-fracture (06/15/2019) mammoplasty (10/10/2019) DMR Right L4/5,L5/S1 (11/23/2020) caudal epidural injection (08/23/2021) DMR Bilateral L2/3, L3/4 (12/06/2021) knee arthroscopy left (12/10/2021) Medications Inpatient MKO Erica, 1 tabs, SL, Once, PRN Home albuterol Aspir 81, 81 mg, Oral, Daily, Not taking Atrovent 500 mcg/2.5 mL inhalation solution, NEB, QID Bentyl 20 mg oral tablet, Oral, QID calcium (as calcium citrate) 250 mg oral tablet, Oral, BID Carafate 1 g oral tablet, Oral, ACHS, Not taking Chondroitin-Glucosamine, Oral, Daily, Not taking Cymbalta 20 mg oral delayed release capsule, 20 mg= 1 caps, Oral, BID Depakote 250 mg oral delayed release tablet, Oral, TID diclofenac sodium 75 mg oral delayed release tablet, Oral, BID Dulera 200 mcg-5 mcg/inh inhalation aerosol, 2 puffs, Inhale, BID Flonase 50 mcg/inh nasal spray, Daily folic acid, 1 mg, Oral, Daily Fosamax 70 mg oral tablet, Oral, Weekly ibuprofen Kenalog 0.1% topical cream, Topical, BID Keppra 250 mg oral tablet, Oral, BID LaMICtal 200 mg oral tablet, 200 mg= 1 tabs, Oral, BID, Not taking Lyrica 100 mg oral capsule, Oral, TID magnesium oxide, Oral Mirapex 1 mg oral tablet, Oral, TID Percocet 5/325, Oral, Not taking Phenergan Protonix 40 mg oral delayed release tablet, Oral, Daily Rexulti 2 mg oral tablet, Oral, Daily Ritalin 10 mg oral tablet, 10 mg= 1 tabs, Oral, BID SEROquel 200 mg oral tablet, Oral, BID, Not taking TEGretol, 100 mg, BID terazosin 5 mg oral capsule, Oral, HS (at bedtime) Tylenol, Oral Vitamin B Complex 100 Vitamin C, Daily Zanaflex 4 mg oral tablet, Oral, BID ZyrTEC 10 mg oral tablet, Oral, Daily Allergies Norflex (Rash) Vistaril (Rash) cephalexin (Rash) hydroCHLOROthiazide (Rash) morphine (Rash) penicillin (Hives) phenoperidine (Rash) pyridimal (Headache) sulfa drugs (Rash) Latuda (Muscle cramps) Vicodin (Nausea and vomiting) Social History Tobacco Former smoker, quit more than 1 year ago Use:. Lab Results Microbiology - Current Encounter No qualifying data available. Electronically signed by Anne Limon MD 12/08/22 10:53 [facility] 11-20-2022 Evaluation note* Encounter Date Diagnosis Assessment Notes Treatment Notes Treatment Clinical Notes Nov, Narcolepsy (ICD-10 - G47.419) Nov, Pulmonary nodule (ICD-10 - R91.1) Nov, Cough variant asthma (ICD-10 - J45.991) [facility] [employer] Other 03-01-2023 Evaluation note* Encounter Date Diagnosis Assessment Notes Treatment Notes Treatment Clinical Notes Nov, Narcolepsy (ICD-10 - G47.419) [facility] [employer] Other 02-22-2023 Evaluation note* Encounter Date Diagnosis Assessment Notes Treatment Notes Treatment Clinical Notes Oct, Nausea and vomiting, intractability of vomiting not specified, unspecified vomiting type (ICD-10 - R11.2) Oct, Cyclic vomiting syndrome (ICD-10 - G43.A0) [facility] [employer] Other 02-01-2023 Note [id number]:[address] [place] [address] 10-15-2022 [id number]:[address] [place], [place] 5231701-23-2023 NoteCystoscopy with Urethral Dilation ? Voiding after the procedure: there may be some pain, urethral bleeding, burning, urgency, frequency and blood tinged urine following the procedure. These symptoms usually resolve within 2-5 days. Drink the amount of fluid it takes to keep the urine pink to yellow or clear in color. Drinking enough water and fluids will help to ease any discomfort after your procedure. ? If you are having problems that seem out of the ordinary, please call. ? If unable to contact your physician and you feel it is an emergency, go to the nearest emergency room or call 911 ? Diet ? you may resume your normal diet. ? Activity ? you may resume your normal activities ? Call if you have a fever over 100 degrees[facility] Encounter Date Diagnosis Assessment Notes Treatment Notes Treatment Clinical Notes Sep, Narcolepsy (ICD-10 - G47.419) [facility] Other 12-28-2022 Evaluation note* Encounter Date Diagnosis Assessment Notes Treatment Notes Treatment Clinical Notes Aug, Injury of right knee, initial encounter (ICD-10 - S89.91XA) Aug, Closed fracture of medial portion of right tibial plateau, initial encounter (ICD-10 - S82.131A) Aug, Other I had a long discussion with the patient regarding her x-rays. I explained to her that while x-rays did not demonstrate a fracture of the CT scan demonstrate a posterior medial tibial plateau fracture. Due to the minimal displacement and the small amount of bony fragment I recommended nonoperative management. As I explained to her this would consist of 3 months of nonweightbearing and successive x-rays to ensure no further displacement and that there is appropriate healing. At the conclusion of 3 months then we will likely plan on some physical therapy to allow her to get back into weightbearing as tolerated. In the meantime, I provided the patient 20 tablets of 5 mg oxycodone and have recommended Tylenol 1000 mg 3 times a day for her pain regimen. Recommended the crutches for nonweightbearing but she could also try her Rollator as she requested. I will plan to see her back in 3 weeks with nonweightbearing AP, lateral x-rays of the right knee. [facility] Other 12-13-2022 Evaluation note* Encounter Date Diagnosis Assessment Notes Treatment Notes Treatment Clinical Notes Aug, Narcolepsy (ICD-10 - G47.419) Aug, Pulmonary nodule (ICD-10 - R91.1) Aug, Cough variant asthma (ICD-10 - J45.991) [facility] Other 11-15-2022 Evaluation note* Encounter Date Diagnosis Assessment Notes Treatment Notes Treatment Clinical Notes Jul, Narcolepsy (ICD-10 - G47.419) [facility] Other 11-10-2022 Evaluation note* Encounter Date Diagnosis Assessment Notes Treatment Notes Treatment Clinical Notes Jul, Cyclic vomiting syndrome (ICD-10 - G43.A0) [facility] Other 09-07-2022 Evaluation note* Encounter Date Diagnosis Assessment Notes Treatment Notes Treatment Clinical Notes May, Narcolepsy (ICD-10 - G47.419) May, Pulmonary nodule (ICD-10 - R91.1) May, Cough variant asthma (ICD-10 - J45.991) [facility] Other 08-24-2022 Evaluation note* Encounter Date Diagnosis Assessment Notes Treatment Notes Treatment Clinical Notes Apr, Narcolepsy (ICD-10 - G47.419) [facility] Other 07-27-2022 Evaluation note* Encounter Date Diagnosis Assessment Notes Treatment Notes Treatment Clinical Notes Mar, Narcolepsy (ICD-10 - G47.419) [facility] Other 06-27-2022 Evaluation note* Encounter Date Diagnosis Assessment Notes Treatment Notes Treatment Clinical Notes Feb, Narcolepsy (ICD-10 - G47.419) [facility] Other 05-18-2022 Evaluation note* Encounter Date Diagnosis Assessment Notes Treatment Notes Treatment Clinical Notes January, Narcolepsy (ICD-10 - G47.419) [facility] Other 05-14-2022 Evaluation note* Encounter Date Diagnosis Assessment Notes Treatment Notes Treatment Clinical Notes January, Cyclic vomiting syndrome (ICD-10 - G43.A0) [facility] Other 04-25-2022 Evaluation note* Encounter Date Diagnosis Assessment Notes Treatment Notes Treatment Clinical Notes Dec, Narcolepsy (ICD-10 - G47.419) [facility] Other 03-24-2022 Evaluation note* Encounter Date Diagnosis Assessment Notes Treatment Notes Treatment Clinical Notes Nov, Narcolepsy (ICD-10 - G47.419) Nov, Pulmonary nodule (ICD-10 - R91.1) Nov, Cough variant asthma (ICD-10 - J45.991) [facility] Other 03-10-2022 Evaluation note* Encounter Date Diagnosis Assessment Notes Treatment Notes Treatment Clinical Notes Nov, Cyclic vomiting syndrome (ICD-10 - G43.A0) [facility] Other 03-10-2022 Evaluation note* Encounter Date Diagnosis Assessment Notes Treatment Notes Treatment Clinical Notes Nov, Narcolepsy (ICD-10 - G47.419) [facility] Other 02-25-2022 Evaluation note* Encounter Date Diagnosis Assessment Notes Treatment Notes Treatment Clinical Notes Oct, Narcolepsy (ICD-10 - G47.419) [facility] Other 02-14-2022 Evaluation note* Encounter Date Diagnosis Assessment Notes Treatment Notes Treatment Clinical Notes Oct, Cyclic vomiting syndrome (ICD-10 - G43.A0) STOP FAMOTIDINE START CARAFATE QID FOR 30 DAYS Oct, Gastritis without bleeding, unspecified chronicity, unspecified gastritis type (ICD-10 - K29.70) Oct, Gastroesophageal ref lux disease, unspecified whether esophagitis present (ICD-10 - K21.9) Oct, Irritable bowel syndrome, unspecified type (ICD-10 - K58.9) Oct, History of colon juan luis yps (ICD-10 - Z86.010) [facility] Other 01-24-2022 Evaluation note* Encounter Date Diagnosis Assessment Notes Treatment Notes Treatment Clinical Notes Sep, Narcolepsy (ICD-10 - G47.419) [facility] Other 12-09-2021 Evaluation note* Encounter Date Diagnosis Assessment Notes Treatment Notes Treatment Clinical Notes Aug, Narcolepsy (ICD-10 - G47.419) Aug, Pulmonary nodule (ICD-10 - R91.1) Aug, Cough variant asthma (ICD-10 - J45.991) [facility] Other 11-11-2021 Evaluation note* Encounter Date Diagnosis Assessment Notes Treatment Notes Treatment Clinical Notes Jul, Narcolepsy (ICD-10 - G47.419) [facility] Other 10-05-2021 Evaluation note* Encounter Date Diagnosis Assessment Notes Treatment Notes Treatment Clinical Notes Jun, Narcolepsy (ICD-10 - G47.419) Jun, Pulmonary nodule (ICD-10 - R91.1) Jun, Cough variant asthma (ICD-10 - J45.991) [facility] Other 08-13-2020 History of Present illness Narrative* GE[place] JUNIOR is a pleasant 56 year old female who returns to clinic for a follow up visit status post right shoulder reverse replacement revision with polyethylene exchange on 04/26/2020. Denies any recent falls or injury to either shoulder. Patient has a long history in regards to her shoulder. * Pain is much better controlled at this point with her right shoulder. 0 out of 10 pain at rest. Shedenies use of pain medication at this time for her shoulder. Denies redness or warmth at incision site. No fever and chills. She is sleeping well. She has been trying to reach behind with continued li mitations. Continues to do well with daily home therapy for shoulder. She initially worked with Occupational Therapy post operatively for balance instability. * She suffered a recent knee injury and presents today wearing a knee brace. * Past medical, family or social histories have been reviewed and they are up to date, see HPI. Family history is not pertinent to the presenting problem. [facility] DO Work Phone: [phone] History of Present illness Narrative* GEOR[place]IA JUNIOR is a pleasant 57 year old female who returns to clinic for a follow up visit status post right shoulder reverse replacement revision with polyethylene exchange on 04/26/2020. Denies any recent falls or injury to either shoulder. Patient has a long history in regards to her shoulder. * Pain is much better controlled at this point with her right shoulder. 0 out of 10 pain at rest. Shedenies use of pain medication at this time for her shoulder. Denies redness or warmth at incision site. No fever and chills. She is sleeping well. She has been trying to reach behind with continued li mitations. Continues to do well with daily home therapy for shoulder. She initially worked with Occupational Therapy post operatively for balance instability. She is here today because she is feelinga locking up of her right shoulder. She notes that it started about a week ago. She has not been doing physical therapy. * She suffered a recent knee injury and presents today wearing a knee brace. * Past medical, family or social histories have been reviewed and they are up to date, see HPI. Family history is not pertinent to the presenting problem. [address] [place] [address] DO Work Phone: [phone] [phone] History of Present illness Narrative* GEORGIA JUNIOR is a pleasant 57 year old female who returns to clinic for a follow up visit status post right shoulder reverse replacement revision with polyethylene exchange on 04/26/2020. Denies any recent falls or injury to either shoulder. Patient has a long history in regards to her shoulder. * Pain is much better controlled at this point with her right shoulder. 0 out of 10 pain at rest. Shedenies use of pain medication at this time for her shoulder. Denies redness or warmth at incision site. No fever and chills. She is sleeping well. She has been trying to reach behind with continued li mitations. Continues to do well with daily home therapy for shoulder. She initially worked with Occupational Therapy post operatively for balance instability. She is here today because she is feelinga locking up of her right shoulder. She notes that it started about a week ago. She has not been doing physical therapy. * She suffered a recent knee injury and presents today wearing a knee brace. * Past medical, family or social histories have been reviewed and they are up to date, see HPI. Family history is not pertinent to the presenting problem. [address] [address] Work Phone: [phone] History of Present illness Narrative* GEORGIA JUNIOR is a pleasant 57 year old female who returns to clinic for a follow up visit status post right shoulder reverse replacement revision with polyethylene exchange on 04/26/2020. Denies any recent falls or injury to either shoulder. Patient has a long history in regards to her shoulder. * Pain is much better controlled at this point with her right shoulder. 0 out of 10 pain at rest. Shedenies use of pain medication at this time for her shoulder. Denies redness or warmth at incision site. No fever and chills. She is sleeping well. She has been trying to reach behind with continued li mitations. Continues to do well with daily home therapy for shoulder. She initially worked with Occupational Therapy post operatively for balance instability. She is here today because she is feelinga locking up of her right shoulder. She notes that it started about a week ago. She has not been doing physical therapy. * She suffered a recent knee injury and presents today wearing a knee brace. * Past medical, family or social histories have been reviewed and they are up to date, see HPI. Family history is not pertinent to the presenting problem. [facility] [place] [address] DO Work Phone: [phone] History of Present illness Narrative* GEORGIA JUNIOR is a pleasant 57 year old female who returns to clinic for a follow up visit status post right shoulder reverse replacement revision with polyethylene exchange on 04/26/2020. Denies any recent falls or injury to either shoulder. Patient has a long history in regards to her shoulder. * Pain is much better controlled at this point with her right shoulder. 0 out of 10 pain at rest. Shedenies use of pain medication at this time for her shoulder. Denies redness or warmth at incision site. No fever and chills. She is sleeping well. She has been trying to reach behind with continued li mitations. Continues to do well with daily home therapy for shoulder. She initially worked with Occupational Therapy post operatively for balance instability. She is here today because she is feelinga locking up of her right shoulder. She notes that it started about a week ago. She has not been doing physical therapy. * She suffered a recent knee injury and presents today wearing a knee brace. * Past medical, family or social histories have been reviewed and they are up to date, see HPI. Family history is not pertinent to the presenting problem. [facility] [address] Work Phone: [phone] History of Present illness Narrative* GEORGIA JUNIOR is a pleasant 58 year old female who returns to clinic for a follow up visit status post right shoulder reverse replacement revision with polyethylene exchange on 04/26/2020. Denies any recent falls or injury to either shoulder. Patient has a long history in regards to her shoulder. * Pain is much better controlled at this point with her right shoulder. 0 out of 10 pain at rest. Shedenies use of pain medication at this time for her shoulder. Denies redness or warmth at incision site. No fever and chills. She is sleeping well. She has been trying to reach behind with continued li mitations. Continues to do well with daily home therapy for shoulder. She initially worked with Occupational Therapy post operatively for balance instability. She is here today because she is feelinga locking up of her right shoulder. She notes that it started about a week ago. She has not been doing physical therapy. * She suffered a recent knee injury and presents today wearing a knee brace. * 05/02/23 * She presents today explaining her shoulder is well. She has no new complaints today. * Past medical, family or social histories have been reviewed and they are up to date, see HPI. Family history is not pertinent to the presenting problem. [address] Work Phone: [phone] History of Present illness Narrative* GEORGIA JUNIOR is a pleasant 58 year old female who returns to clinic for a follow up visit status post right shoulder reverse replacement revision with polyethylene exchange on 04/26/2020. Denies any recent falls or injury to either shoulder. Patient has a long history in regards to her shoulder. * Pain is much better controlled at this point with her right shoulder. 0 out of 10 pain at rest. Shedenies use of pain medication at this time for her shoulder. Denies redness or warmth at incision site. No fever and chills. She is sleeping well. She has been trying to reach behind with continued li mitations. Continues to do well with daily home therapy for shoulder. She initially worked with Occupational Therapy post operatively for balance instability. She is here today because she is feelinga locking up of her right shoulder. She notes that it started about a week ago. She has not been doing physical therapy. * She suffered a recent knee injury and presents today wearing a knee brace. * 05/02/23 * She presents today explaining her shoulder is well. She has no new complaints today. * Past medical, family or social histories have been reviewed and they are up to date, see HPI. Family history is not pertinent to the presenting problem. [address] DO Work Phone: Evaluation noteNo InformationNortLehigh [facility] [employer] Other Evaluation noteNo assessment information available [facility] Work Phone: Evaluation note* Diagnosis Lumbar radiculopathy Thoracic or lumbosacral neuritis or radiculitis, unspecified documented in this encounter [facility] Work Phone: History general Narrative - Reported* Type Description Date Medical History Cervical spondylosis Medical History Degenerative disc disease, cervi jeniffer Medical History Lumbar spondylosis Medical History Chronic pain Medical History Right shoulder pain Medical History Left shoulder pain Medical History Neck pain Medical History Numbness and tingling in left ja[place] nd Medical History Obstructive sleep apnea (adult) (pediatric) Medical History Anxiety disorder, unspecified Medical History fibromyalgia Medical History osteoporosis Medical History narcolepsy Medical History lung chest nodule Medical History asthma Surgical History R shoulder RC repair - [facility] 2014 Surgical History Right Wrist Fx repair 02/2016 Surgical History Cspine C5/C6 surgery 2002 Surgical History Foot surgery 1998 Surgical History Neck Surgery Surgical History cholecystectomy 1986 Surgical History tubal ligation 1990 Surgical History cholecystectomy 1988 Surgical History tonsillectomy 1986 Surgical History Procedure: Neck surgery 2016 Surgical History tubal ligation Surgical History colonoscopy Surgical History Right wrist surgery; plate with 8 screws 2015 Surgical History Colposcopy:CIN1; abnormal pap L [facility] 08-24-17 Surgical History wisdom teeth Surgical History Colposocpy: negative 08-30-18 Surgical History urethral stricture Surgical History ulcer debridement left leg 07/16 019 Surgical History breast reduction 10/2019 Hospitalization History Abcess and Cellulitis Hospitalization History [facility] 02/2021 [facility] Other [employer] general Narrative - Reported* Type Description Date Medical History Cervical spondylosis Medical History Degenerative disc disease, cervi jeniffer Medical History Lumbar spondylosis Medical History Chronic pain Medical History Right shoulder pain Medical History Left shoulder pain Medical History Neck pain Medical History Numbness and tingling in left [place] nd Medical History Obstructive sleep apnea (adult) (pediatric) Medical History Anxiety disorder, unspecified Medical History fibromyalgia Medical History osteoporosis Surgical History R shoulder RC repair - [facility] 2014 Surgical History Right Wrist Fx repair 02/2016 Surgical History Cspine C5/C6 surgery 2002 Surgical History Foot surgery 1998 Surgical History Neck Surgery Surgical History cholecystectomy 1986 Surgical History tubal ligation 1990 Surgical History cholecystectomy 1988 Surgical History tonsillectomy 1986 Surgical History Procedure: Neck surgery 2016 Surgical History tubal ligation Surgical History colonoscopy Surgical History Right wrist surgery; plate with 8 screws 2015 Surgical History Colposcopy:CIN1; abnormal pap L [facility] 08-24-17 Surgical History wisdom teeth Surgical History Colposocpy: negative 08-30-18 Surgical History urethral stricture Surgical History ulcer debridement left leg 07/16 019 Surgical History breast reduction 10/2019 Hospitalization History Abcess and Cellulitis Hospitalization History [facility] 02/2021 [facility] Other History general Narrative - [email or web address] Other [employer] general Narrative - Reported* Type Description Date Medical History Cervical spondylosis Medical History Degenerative disc disease, cervi jeniffer Medical History Lumbar spondylosis Medical History Chronic pain Medical History Right shoulder pain Medical History Left shoulder pain Medical History Neck pain Medical History Numbness and tingling in left [place] nd Medical History Obstructive sleep apnea (adult) (pediatric) Medical History Anxiety disorder, unspecified Medical History fibromyalgia Medical History osteoporosis Medical History narcolepsy Medical History lung chest nodule Medical History asthma Medical History trigeminal neuralgia Surgical History R shoulder RC repair - [facility] 2014 Surgical History Right Wrist Fx repair 02/2016 Surgical History Cspine C5/C6 surgery 2002 Surgical History Foot surgery 1998 Surgical History Neck Surgery Surgical History cholecystectomy 1986 Surgical History tubal ligation 1990 Surgical History cholecystectomy 1988 Surgical History tonsillectomy 1986 Surgical History Procedure: Neck surgery 2016 Surgical History tubal ligation Surgical History colonoscopy Surgical History Right wrist surgery; plate with 8 screws 2015 Surgical History Colposcopy:CIN1; abnormal pap L [facility] 08-24-17 Surgical History wisdom teeth Surgical History Colposocpy: negative 08-30-18 Surgical History urethral stricture Surgical History ulcer debridement left leg 07/16 019 Surgical History breast reduction 10/2019 Hospitalization History Abcess and Cellulitis Hospitalization History [facility] 02/2021 [facility] Other [facility] general Narrative - Reported* Type Description Date Medical History Cervical spondylosis Medical History Degenerative disc disease, cervi jeniffer Medical History Lumbar spondylosis Medical History Chronic pain Medical History Right shoulder pain Medical History Left shoulder pain Medical History Neck pain Medical History Numbness and tingling in left [place] nd Medical History Obstructive sleep apnea (adult) (pediatric) Medical History Anxiety disorder, unspecified Medical History fibromyalgia Medical History osteoporosis Medical History narcolepsy Medical History lung chest nodule Medical History asthma Medical History trigeminal neuralgia Surgical History R shoulder RC repair - [facility] 2014 Surgical History Right Wrist Fx repair 02/2016 Surgical History Cspine C5/C6 surgery 2002 Surgical History Foot surgery 1998 Surgical History Neck Surgery Surgical History cholecystectomy 1986 Surgical History tubal ligation 1990 Surgical History cholecystectomy 1988 Surgical History tonsillectomy 1986 Surgical History Procedure: Neck surgery 2016 Surgical History tubal ligation Surgical History colonoscopy Surgical History Right wrist surgery; plate with 8 screws 2015 Surgical History Colposcopy:CIN1; abnormal pap L [facility] 08-24-17 Surgical History wisdom teeth Surgical History Colposocpy: negative 08-30-18 Surgical History urethral stricture Surgical History ulcer debridement left leg 07/16 Surgical History breast reduction 10/2019 Surgical History knee surgery Surgical History hysterectomy Hospitalization History Abcess and Cellulitis Hospitalization History [facility] 02/2021 [employer] Other History of Present illness Narrative* Her right knee is doing much better and anterior knee wound has healed. * Her left knee is more bothersome over the anterior knee area, worse with low chairs. She did not dorecent PT as she has been doing exercises on her own. * She has had several years of problems with her lower back and states that she has herniated disks and radiating pain. She has been treated at outside clinic but not making any improvements. Discussedwith her option to consult with our spine and PM and R team here to see if there are any other options. * On 01/29/21; patient reports she started having pain in the anterior right knee without injury. She has been doing her HEP. Ambulating with a cane. She has pain in the anterior knee that is worse withwalking or bending. She has seen pain management and had injections in her back. She denies any locking of the knee. She did see spine but was unable to get her MRI * PHYSICAL EXAMINATION * Constitutional Exam: patient's height and weight reviewed, well-kempt * Psychiatric Exam: alert and oriented x 3, appropriate mood and behavior * Eye Exam: PREETHI, EOMI * Pulmonary Exam: breathing non-labored, no apparent distress * Lymphatic exam: no appreciable lymphadenopathy in the lower extremities * Cardiovascular exam: DP pulses 2+ bilaterally, PT 2+ bilaterally, toes are pink with good capillaryrefill, no pitting edema * Skin exam: Healed left lower leg ulcer, rash on both lower legs which looks like cigarette [place], new wound on right anterior knee with no cellulitis or infection * Neurological exam: sensation to light touch intact in both lower extremities in peripheral and dermatomal distributions (except for any abnormalities noted in musculoskeletal exam) * On exam of Right knee: normal alignment; minimal swelling; able to do straight leg raise, minimal soreness to palpation about the patellar tendon/patella/quadricep tendon and medial joint line, stable varus valgus stress test, no lateral joint line tenderness, patellar crepitus, patella stable, motor intact * DATA/RESULTS REVIEW * I personally reviewed the patient's MRI images and reports of the left knee shows chronic ACL tear since no associated bone bruising pattern, degenerative tearing lateral meniscus, osteoarthritis of the patellofemoral and lateral compartments particularly, no acute findings or fractures. * Assessment: Right knee arthritis, chronic ACL insufficiency left knee with no overt instability on exam and no instability symptoms but patellofemoral pain and arthritis flare-up,, chronic degenerative tear lateral meniscus * Plan: We discussed with the patient her findings in detail and options for treatments. Discussed options of treatment with her including injection of kenalog, PT to work on strength, and total joint replacement service referral. She wanted to proceed with injection and therapy exercises. With respect to her complicated back condition which is affecting her function, we referred her to spine service for further evaluation. Patient was given a rx for an OA knee brace due to their genu varum deformity, thigh/knee/calf morphology and to improve the patient's pain, reduce medications, defer total knee replacement, improve patient's function and ADL's. Patient is ambulatory and brace will be usedfor a duration greater than 6 months. Please refer to the discussion section below for further treatment details and plan. The patient's questions were answered in detail. * Note dictated with [employer] library clerk software, completed without full type editing to avoid delay. * Patient was prescribed a knee OA brace for knee osteoarthritis and genu valgum.The patient is ambulatory with or without aid; but, has weakness, instability and/or deformity of their right knee whichrequires stabilization from this orthosis to improve their function. * Verbal and written instructions for the use, wear schedule, cleaning and application of this item were given. Patient was instructed that should the brace result in increased pain, decreased sensation, increased swelling, or an overall worsening of their medical condition, to please contact our office immediately. * Orthotic management and training was provided for skin care, modifications due to healing tissues, edema changes, interruption in skin integrity, and safety precautions with the orthosis. [facility] DO Work Phone: History of Present illness Narrative* GEORGIA is a 56 year year-old female who presents with left knee pain. Second opinion. She is a patient of my partners previously had a knee scope for arthroscopy and meniscectomy she reports ongoing knee pain had a recent MRI that demonstrated chronic ACL insufficiency and osteoarthritis. Primary complaint is pain. It does buckle on her from time to time. * Past Medical, Family, and Social History reviewed * Review of Systems * A complete review of systems was conducted, pertinent only to the HPI noted above. * Constitutional: None * Eyes: No additions to above history * Ears, Nose, Throat: No additions to above history * Cardiovascular: No additions to above history * Respiratory: No additions to above history * GI: No additions to above history * : No additions to above history * Skin/Neuro: No additions to above history * Endocrine/Heme/Lymph: No additions to above history * Immunologic: No additions to above history * Psychiatric: No additions to above history * Musculoskeletal: see above * GEN: Alert and Oriented x 3 * Constitutional: Well appearing , in no apparent distress. * Skin: No rashes, erythema, or induration around knee * MUSCULOSKELETAL EXAM: Knee * LEFT KNEE: * ROM: [0]/ [0] / 125 * Effusion: + * Alignment: [neutral] * She is diffusely tender to palpation in any areas of the knee * Gait: [normal] * Sensation intact bilaterally sural/saphenous/sp/dp/tibial nerve bilaterally * Motor 5/5 knee flexion/extension/foot DF/PF/EHL/FHL bilaterally * Palpable/symmetric DP and PT pulse bilaterally * PATELLAR/EXTENSOR MECHANISM: * KNEE: * Patellar Crepitus: n * Patellar Compression Pain:n * Patellar Apprehension: [no] * Extensor Mechanism: [intact] * Straight Leg Raise: good * LIGAMENTS: * ACL: Lachmans: 2b * PCL: [stable] * Valgus at 0 degrees: [stable] * Valgus at 30 degrees: [stable] * Varus at 0 degrees: [stable] * Varus at 30 degrees: [stable] * Xrays and MRI independently viewed and interpreted: MRI from an outside institution independently reviewed: There is mucoid degeneration likely chronic tearing of the ACL nearly full-thickness chondral loss of the lateral compartment medial meniscus tear * The risks and benefits of the procedure were discussed at length with the patient including infection, allergic reaction, increased pain, stiffness, and repeated injection. The patient was prepped insterile fashion. Under sterile conditions, using a superolateral approach, the knee joint was injected with 4cc 1% lidocaine,and 40 mg kenelaog. A sterile bandage was applied. The procedure was tolerated well. Significant pain relief was identified immediately following the procedure. * I reviewed with the patient her MRI. This likely does demonstrate some chronic ACL tearing she doeshave some positive exam findings but does not appear to be symptomatic from an instability standpoint reviewed with her her primary problem is likely the degenerative changes mostly in the lateral compartment. Reviewed I do not recommend any sort of surgery for her ACL she does not appear to be having functional instability. We did offer her corticosteroid injection which was provided today at her request. We will send her to physical therapy. All questions were answered she is in agreement with this plan. [facility] [place] [address] DO Work Phone: History of Present illness Narrative* GEORGIA JUNIOR is here for follow-up. with Tremor The last clinic visit was . * Here for follow up of tremors, felt to be medication induced, in addition has RLS managed by PCP aswell as Narcolepsy. 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 * She has muscle jerks, which can cause her to spill food when she is eating. * Has some tremors of both hands with action, and also notices occasionally when resting, * Narcolepsy is doing better. * Her mouth is dry, but she does not have the mouth movements much anymore, has cut down the promethazine. * Walking is good, had knee surgery and it has helped the pain significantly. NO recent falls. * Mood is good. * Memory is good. * Voice has been much better, was having some R vocal cord issues. * At prior visit Latuda caused involuntary movements of the tongue and jaw. Was also on Thorazine it appears. continues to be on Promethazine. * Remains on Mirapex for her RLS. * Previous medications included: rotigitine. * She reports balance problems, but no falls. * She reports no speech problems and no dysphagia. * She reports no urinary incontinence, no urinary retention, no constipation and orthostatic symptoms. * She reports she has no symptoms of depression and no anxiety . Bipolar, still has ups and downs, Rexulti has really helped. * She reports no difficulty falling asleep and no difficulty staying asleep. * She reports no concern about memory and no hallucinations. [facility] Work Phone: Hospital Discharge instructions Additional Instructions Taking doxycycline and start taking Levaquin and Flagyl as prescribed for diverticulitis. Take Naprosyn as prescribed for mild to moderate pain. Take oxycodone as prescribed for severe pain. Take Zofran with oxycodone to prevent nausea. Take Metamucil daily and MiraLAX as needed for constipation associate with the oxycodone. Follow-up with your PCP for reevaluation in 5 to 7 days. Follow-up with your [employer] physician as scheduled.[facility] Work Phone: Instructions* Name Dates Details Instructions not documented [facility] Work Phone: InstructionsNot on filedocumented in this encounter [facility] Family History Mother Name Dates Details Family history of seizures(V 19.8, Z84.89) Status:Active Family history of malignant neoplasm of brain(V16.8, Z80.8) Status:Active Father Name Dates Details Family history of malignant neoplasm of brain(V16.8, Z80.8) Status:Active Brother Name Dates Details Family history of seizures(V 19.8, Z84.89) Status:Active Family history of malignant neoplasm of brain(V16.8, Z80.8) Status:Active Mother Name Dates Details Family history of seizures(V 19.8, Z84.89) Status:Active Family history of malignant neoplasm of brain(V16.8, Z80.8) Status:Active Father Name Dates Details Family history of malignant neoplasm of brain(V16.8, Z80.8) Status:Active Brother Name Dates Details Family history of seizures(V 19.8, Z84.89) Status:Active Family history of malignant neoplasm of brain(V16.8, Z80.8) Status:Active Mother Name Dates Details Family history of seizures(V 19.8, Z84.89) Status:Active Family history of malignant neoplasm of brain(V16.8, Z80.8) Status:Active Father Name Dates Details Family history of malignant neoplasm of brain(V16.8, Z80.8) Status:Active Brother Name Dates Details Family history of seizures(V 19.8, Z84.89) Status:Active Family history of malignant neoplasm of brain(V16.8, Z80.8) Status:Active Unknown Family Member Name Dates Details Family history of seizures: Mother, Brother(V19.8, Z84.89) Status:Active Family history of malignant neoplasm of brain: Mother, Father, Brother(V16.8, Z80.8) Status:Active Unknown Family Member Name Dates Details Family history of seizures: Mother, Brother(V19.8, Z84.89) Status:Active Family history of malignant neoplasm of brain: Mother, Father, Brother(V16.8, Z80.8) Status:Active Unknown Family Member Name Dates Details Family history of seizures: Mother, Brother(V19.8, Z84.89) Status:Active Family history of malignant neoplasm of brain: Mother, Father, Brother(V16.8, Z80.8) Status:Active Unknown Family Member Name Dates Details Family history of seizures: Mother, Brother(V19.8, Z84.89) Status:Active Family history of malignant neoplasm of brain: Mother, Father, Brother(V16.8, Z80.8) Status:Active Unknown Family Member Name Dates Details Family history of seizures: Mother, Brother(V19.8, Z84.89) Status:Active Family history of malignant neoplasm of brain: Mother, Father, Brother(V16.8, Z80.8) Status:Active Unknown Family Member Name Dates Details Family history of seizures: Mother, Brother(V19.8, Z84.89) Status:Active Family history of malignant neoplasm of brain: Mother, Father, Brother(V16.8, Z80.8) Status:Active Mother Name Dates Details Family history of seizures(V 19.8, Z84.89) Status:Active Family history of malignant neoplasm of brain(V16.8, Z80.8) Status:Active Father Name Dates Details Family history of malignant neoplasm of brain(V16.8, Z80.8) Status:Active Brother Name Dates Details Family history of seizures(V 19.8, Z84.89) Status:Active Family history of malignant neoplasm of brain(V16.8, Z80.8) Status:Active Unknown Family Member Name Dates Details Family history of seizures: Mother, Brother(V19.8, Z84.89) Status:Active Family history of malignant neoplasm of brain: Mother, Father, Brother(V16.8, Z80.8) Status:Active Relationship Condition Age at Onset Recorded Date/T dario father Malignant neoplasm of brain Unknown Not Specified Heart problem Unknown Sepsis Unknown Hypertension Unknown brother Hypercholesterolemia Unknown sister Hypercholesterolemia Unknown Unknown Family Member Name Dates Details Family history of malignant neoplasm of brain: Mother, Father, Brother(V16.8, Z80.8) Status:Active Family history of seizures: Mother, Brother(V19.8, Z84.89) Status:Active Unknown Family Member Name Dates Details Family history of seizures: Mother, Brother(V19.8, Z84.89) Status:Active Family history of malignant neoplasm of brain: Mother, Father, Brother(V16.8, Z80.8) Status:Active Unknown Family Member Name Dates Details Family history of malignant neoplasm of brain: Mother, Father, Brother(V16.8, Z80.8) Status:Active Family history of seizures: Mother, Brother(V19.8, Z84.89) Status:Active Unknown Family Member Name Dates Details Family history of seizures: Mother, Brother(V19.8, Z84.89) Status:Active Family history of malignant neoplasm of brain: Mother, Father, Brother(V16.8, Z80.8) Status:Active Unknown Family Member Name Dates Details Family history of malignant neoplasm of brain: Mother, Father, Brother(V16.8, Z80.8) Status:Active Family history of seizures: Mother, Brother(V19.8, Z84.89) Status:Active Unknown Family Member Name Dates Details Family history of seizures: Mother, Brother(V19.8, Z84.89) Status:Active Family history of malignant neoplasm of brain: Mother, Father, Brother(V16.8, Z80.8) Status:Active Unknown Family Member Name Dates Details Family history of seizures: Mother, Brother(V19.8, Z84.89) Status:Active Family history of malignant neoplasm of brain: Mother, Father, Brother(V16.8, Z80.8) Status:Active Unknown Family Member Name Dates Details Family history of seizures: Mother, Brother(V19.8, Z84.89) Status:Active Family history of malignant neoplasm of brain: Mother, Father, Brother(V16.8, Z80.8) Status:Active Unknown Family Member Name Dates Details Family history of seizures: Mother, Brother(V19.8, Z84.89) Status:Active Family history of malignant neoplasm of brain: Mother, Father, Brother(V16.8, Z80.8) Status:Active Unknown Family Member Name Dates Details Family history of seizures: Mother, Brother(V19.8, Z84.89) Status:Active Family history of malignant neoplasm of brain: Mother, Father, Brother(V16.8, Z80.8) Status:Active Summary Purpose Advance Directives Advance Directive Response Recorded Date/ Time Advance Directives No August 10:51am Advance Directive Response Recorded Date/ Time Advance Directives No August 9:51am Chief Complaint Pt here for right knee follow up. /tc* FUV R SHOULDER * Clinical check post (R) shoulder revision RTSR * DOS: 04/26/2020) patient here for npv left knee pain. Referred by Dr Osuna. -MApatient here for npv left knee pain. Referred by Dr Osuna. -MA* FUV R SHOULDER * Clinical check post (R) shoulder revision RTSR * DOS: 04/26/2020) * FUV R SHOULDER * Clinical check post (R) shoulder revision [facility]TSR * DOS: 04/26/2020) * FUV R SHOULDER * Clinical check post (R) shoulder revision RTSR * DOS: 04/26/2020) * FUV R SHOULDER * Clinical check post (R) shoulder revision RTSR * DOS: 04/26/2020) * FUV R SHOULDER * Clinical check post (R) shoulder revision RTSR * DOS: 04/26/2020) * FUV R SHOULDER * Clinical check post (R) shoulder revision RTSR * DOS: 04/26/2020) Chief Complaint and Reason for Visit Chief Complaint localized swelling o f r l extremity Chief Complaint localized swelling o f r l extremity Postmenopausal Bleeding, Thickened Endometrium Chief Complaint Postmenopausal Bleed ing, Thickened Endometrium Postmenopausal Bleeding, Thickened Endometrium vaginal infection. Chief Complaint Postmenopausal Bleed ing, Thickened Endometrium Postmenopausal Bleeding, Thickened Endometrium vaginal infection. Screening R91.1 Chief Complaint Postmenopausal Bleed ing, Thickened Endometrium Postmenopausal Bleeding, Thickened Endometrium vaginal infection. Screening E78.2 E11.9 N18.31 R91.1 s82.134d Chief Complaint E78.2 E11.9 N18.31 R91.1 s82.134d Postmenopausal Bleeding, LGFIL, Abnormal Pap Chief Complaint E78.2 E11.9 N18.31 R91.1 s82.134d Postmenopausal Bleeding, LGFIL, Abnormal Pap Postmenopausal Bleeding, LGFIL, Abnormal Pap vomiting Chief Complaint Z12.31 Z13.820 Z78.0 Reason for Referral Specialty Diagnoses / Procedures Referred By Huyen armijo Referred To Contact Diagnoses Lumbar radiculopathy Procedures EMG & nerve conduction Rina Vallejo MD [address] [facility], [address], [facility] [address] [place] [address] Referral ID Status Reason Start Date Expiration Date V isits Requested Visits Authorized [id number] Pending Review 07/21/2023 07/20/2024 1 1 Additional Source Comments INFORMATION SOURCE (unrecogn ized section and content) DATE CREATED AUTHOR [facility]/01/2020 [facility] DATE CREATED AUTHOR AUTHOR'S ORGANIZ ATION 04/25/2020 [facility] DATE CREATED AUTHOR AUTHOR'S ORGANIZ ATION 10/11/2022 [facility] DATE CREATED AUTHOR AUTHOR'S ORGANIZ ATION 12/09/2022 [facility] DATE CREATED AUTHOR AUTHOR'S ORGANIZ ATION 12/18/2022 [facility] DATE CREATED AUTHOR AUTHOR'S ORGANIZ ATION 02/28/2023 [facility] DATE CREATED AUTHOR AUTHOR'S ORGANIZ ATION 05/02/2023 [facility] DATE CREATED AUTHOR AUTHOR'S ORGANIZ ATION 05/14/2023 [facility] DATE CREATED AUTHOR AUTHOR'S ORGANIZ ATION 06/19/2023 [facility] DATE CREATED AUTHOR AUTHOR'S ORGANIZ ATION 07/23/2023 [facility] DATE CREATED AUTHOR AUTHOR'S ORGANIZ ATION 09/05/2023 [facility] DATE CREATED AUTHOR AUTHOR'S ORGANIZ ATION 09/10/2023 [facility] REASON FOR VISIT (unrecogniz ed section and content) Refills Specialty Diagnoses / Procedures Referred By Contac t Referred To Contact Diagnoses Lumbar radiculopathy Procedures EMG & nerve conduction Rina Vallejo MD [address] [facility], [address], [facility] [address] [place] [address] Referral ID Status Reason Start Date Expiration Date V isits Requested Visits Authorized [id number] Pending Review 07/21/2023 07/20/2024 1 1 Reason Onset Date Comments Med Refill 09/30/2023 Care Teams (unrecognized sec tion and content) Team Status: Inactive Member Role Status Dates Services Family [facility] Primary Care Provider Active Bridgette Pena DO Attending Provider Active Cristian Prasad DO RES Referring Provider Active Team Status: Active Member Role Status Dates Services [facility] Primary Care Provider Active Team Status: Inactive Member Role Status Dates Services [facility] Primary Care Provider Active Flako Crane MD Attending Provider Active Team Status: Inactive Member Role Status Dates Cristian Prasad DO RES Attending Provider Active Team Status: Inactive Member Role Status Dates Services [facility] Primary Care Provider Active Referral Self Attending Provider Active Flako Crane MD Referring Provider Active Team Status: Inactive Member Role Status Dates Kevan Hyman MD Attending Provider Active Team Status: Inactive Member Role Status Dates Roderick Trejo DO Attending Provider Active Services [facility] Primary Care Provider Active Team Status: Inactive Member Role Status Dates Services [facility] Primary Care Provider Active Brando Núñez , DO Attending Provider Active Team Status: Inactive Member Role Status Dates Services [facility] Primary Care Provider Active Terrence Doe , Emergency Provider Active [employer] Relationship Specialty Start Date End Date Pcp, [place] [address] PCP - General Family Medicine 05/27/21 Cristian Prasad [address] [place] [address] Physician Tool [facility] Family [facility] 01/14/23 Goals (unrecognized section and content) Goals may be documented in a n alternate section FOR RECORDS PERTAINING TO PATIENTS WHO ARE OR HAVE BEEN ENROLLED IN A CHEMICAL DEPENDENCY/SUBSTANCEABUSE PROGRAM, SOME INFORMATION MAY BE OMITTED. This clinical summary was aggregated from multiple sources. Caution should be exercised in using it in the provision of clinical care. This summary normalizes information from multiple sources, and as a consequence, information in this document may materially change the coding, format and clinical context of patient data. In addition, data may be omitted in some cases. CLINICAL DECISIONS SHOULD BE BASED ON THE PRIMARY CLINICAL RECORDS. [employer] provides no warranty or guarantee of the accuracy or completeness of information in this document.
== END 2023-10-07 13:23 | disposition home or self-care (01) ==
LOC: RAD 13:22
PROVIDERS: Visit Provider Podiatrist Foot & Ankle Surgery
DX: M79.671 Pain in right foot (principal)
CPT/HCPCS: 73630

== ENCOUNTER 2023-11-05 09:38 | Outpatient (OUT) | payer OTHER, SELFPAY ==
--- NOTE | 2023-11-05 | XR_ITS ---
The [address] [address] Patient Name: PRAFUL JUNIOR MRN: [id number] date: 1965 Sex: F Assigned Patient Location: Current Patient Location: Accession/Order Number: [id number] Exam Date: 11/05/2023 09:40 Report Date: 11/06/2023 14:51 At the request of: ELSA BOSCH Procedure: XR foot RT min 3V PROCEDURE: XR foot RT min 3V HISTORY: RIGHT FOOT PAIN ; 5th metatarsal pain and bruising following injury COMPARISON: XR foot right 10/07/2023 FINDINGS: BONES:Prior surgical repair of first and 5th metatarsals with 2 screws present within the distal aspect of the first and 5th metatarsal. SOFT TISSUES:No visible soft tissue swelling. EFFUSION:None visible. OTHER: Negative. XR/XR foot RT min 3V IMPRESSION: 1. Stable surgical changes. 2. No acute findings to account for patient's symptoms. Electronically authenticated by: VITA MCCOY Date: 11/06/2023 14:51
== END 2023-11-05 09:39 | disposition home or self-care (01) ==
LOC: EC 09:38
PROVIDERS: Visit Provider Physician Assistant
DX: M20.11 Hallux valgus (acquired), right foot (principal); Z98.890 Other specified postprocedural states
CPT/HCPCS: 73630

== ENCOUNTER 2023-12-02 08:24 | Outpatient (OUT) | payer OTHER, SELFPAY ==
--- NOTE | 2023-12-02 | XR_ITS ---
The [address] [address] Patient Name: PRAFUL JUNIOR MRN: [id number] date: 1965 Sex: F Assigned Patient Location: Current Patient Location: Accession/Order Number: [id number] Exam Date: 12/02/2023 13:00 Report Date: 12/03/2023 07:03 At the request of: MARGARET CARDENAS Procedure: XR foot RT min 3V PROCEDURE: XR foot RT min 3V HISTORY: RIGHT FOOT PAIN ; 5th toe pain COMPARISON: XR foot right 11/05/2023 FINDINGS: BONES:Subtle cortical irregularity involving base of 5th toe proximal phalanx. No appreciable intra-articular extension. Prior surgical repair of first and 5th metatarsals. SOFT TISSUES:No visible soft tissue swelling. EFFUSION:None visible. OTHER: Negative. XR/XR foot RT min 3V IMPRESSION: 1. Nondisplaced 5th proximal phalanx fracture which was previously occult on prior study. Electronically authenticated by: VITA MCCOY Date: 12/03/2023 07:03
== END 2023-12-02 08:25 | disposition home or self-care (01) ==
LOC: EC 08:25
PROVIDERS: Visit Provider Podiatrist Foot & Ankle Surgery
DX: M79.671 Pain in right foot (principal); S92.514D Nondisplaced fracture of proximal phalanx of right lesser toe(s), subsequent encounter for fracture with routine healing
CPT/HCPCS: 73630

== ENCOUNTER 2024-06-07 10:38 | Outpatient (OUT) | payer OTHER, SELFPAY ==
--- NOTE | 2024-06-07 | XR_ITS ---
The [address] [address] Patient Name: PRAFUL JUNIOR MRN: [id number] date: 1965 Sex: F Assigned Patient Location: Current Patient Location: Accession/Order Number: [id number] Exam Date: 06/07/2024 10:53 Report Date: 06/09/2024 05:32 At the request of: MARGARET CARDENAS Procedure: XR foot RT min 3V PROCEDURE: XR foot RT min 3V HISTORY: RIGHT FOOT PAIN , hammertoe COMPARISON: XR foot right 12/02/2023 FINDINGS: BONES:Prior osteotomy and repair of distal first and 5th metatarsals. Prior bunionectomy. Mild narrowing of the first metatarsophalangeal joint. Hyperflexion of the second toe. SOFT TISSUES:No visible soft tissue swelling. EFFUSION:None visible. OTHER: Negative. XR/XR foot RT min 3V IMPRESSION: 1. Stable surgical changes. 2. Healing of prior 5th proximal phalanx fracture. 3. Flexion of second toe consistent with patient history. Electronically authenticated by: VITA MCCOY Date: 06/09/2024 05:32
== END 2024-06-07 10:39 | disposition home or self-care (01) ==
LOC: EC 10:39
PROVIDERS: Visit Provider Podiatrist Foot & Ankle Surgery
DX: M79.671 Pain in right foot (principal); S92.511D Displaced fracture of proximal phalanx of right lesser toe(s), subsequent encounter for fracture with routine healing
CPT/HCPCS: 73630

== ENCOUNTER 2024-07-07 12:14 | Outpatient (OUT) | payer OTHER, SELFPAY ==
--- NOTE | 2024-07-07 12:18 | XR_ITS ---
The [address] [address] Patient Name: PRAFUL JUNIOR MRN: [id number] date: 1965 Sex: F Assigned Patient Location: [facility] Current Patient Location: Accession/Order Number: [id number] Exam Date: 07/07/2024 14:01 Report Date: 07/09/2024 11:31 At the request of: MARGARET CARDENAS Procedure: XR chest 2V PROCEDURE: XR chest 2V DATE: 07/07/2024 1:01 PM CDT COMPARISONS: Chest x-ray from 01/22/2018 CLINICAL INDICATION: 59 years Female Preop exam FINDINGS: The cardiomediastinal silhouette and pulmonary vasculature are within normal limits. There is slight nodularity in the perihilar regions a stable finding from previous exams likely caused by pulmonary vessels. There is no evidence of pleural effusion or pneumothorax. XR/XR chest 2V IMPRESSION: Chest radiograph is within normal limits and stable. Electronically authenticated by: WALTER WOO Date: 07/09/2024 11:31
[2024-07-07 12:59] LABS: Anion Gap 14.2; BUN Creatinine Ratio 7.9; Calcium 8.8 mg/dL (8.5-10.1); Chloride 109 mmol/L (98-107); Estimated GFR (African America >60 (>=60 mL/min/1.73m^2); Estimated GFR (Non-African Ame >60 (>=60 mL/min/1.73m^2); Glucose 95 mg/dL (74-106); Potassium 4.2 mmol/L (3.5-5.1); Sodium 144 mmol/L (136-145)
== END 2024-07-07 12:15 | disposition home or self-care (01) ==
PROVIDERS: Visit Provider Podiatrist Foot & Ankle Surgery
DX: Z01.810 Encounter for preprocedural cardiovascular examination (principal); Z01.812 Encounter for preprocedural laboratory examination; M20.41 Other hammer toe(s) (acquired), right foot
CPT/HCPCS: 71046; 80048

== ENCOUNTER 2024-07-18 06:22 | Day surgery (SDC) | payer OTHER, SELFPAY ==
[2024-07-07 13:10] VITALS: BP 126/84; PULSE 87; TEMP 36.3; O2SAT 95; BMI 32.8
[2024-07-18] VITALS (11 sets, daily range): BP systolic 97–138; BP diastolic 68–86; PULSE 74–93; TEMP 36.3–36.9; O2SAT 91–97; BMI 32.6
--- OUTSIDE RECORDS SUMMARY | 2024-07-18 06:27 | XMS_ITS | CCD ---
Author Organization [facility] Inform ion Partnership [facility] Care Team Providers Care Orchid Worker Name Role Phone Marianna Escamilla Unavailable Unavailable Evan Lopez Unavailable Unavailable Unavailable Unavailable Unavailable Eugene Osuna Unavailable Unavailable Evan Lopez Unavailable Unavailable Adriana Desai Unavailable Unavailable Evan Lopez Unavailable Unavailable Unavailable Unavailable Lex RUVALCABA, Saroj Unavailable Unavailable Marianna Wood Unavailable Unavailab Evan Haji Unavailable Unavailable Unavailable Unavailable Unavailable Hebert [place] Unavailable Kevan Hyman Unavailable [facility] Primary Care Provider DO Bridgette Pena Attending Provider [phone] DO Cristian Prasad Referring Provider Corey Moore Unavailable [facility] Primary Care Provider DO Bridgette Pena Attending Provider [phone] DO Cristian Prasad Referring Provider MD Flako Guaman Attending Provider [facility] Primary Care Provider Dr. Eugene Osuna Attending Unav ailable Dr. Eugene Osuna Attending Unav ailstephania Self, Referral Attending Provider Unavailable MD Flako Guaman Referring Provider [phone] DO Cristian Prasad Attending Provider [phone] MD Kevan Hyman Attending Provider Eugene Nicholson II Unavailable DO Guillermo Rodriguez Attending Provider [phone] Ashly RUVALCABA, Anne Greene Attending Unavailable DO Cristian Prasad Attending Provider MD Kevan Hyman Attending Provider DO Guillermo Rodriguez Attending Provider [phone] [facility] Primary Care Provider [phone] DO Brando Núñez Attending Provider DR ELADIO HECTOR Consulting Unavailable MARCEL ., DANE Admitting Unavailable MARCEL ., DANE Attending Unavailable MISC, DR ZAMUDIO Primary Care Unavailable SHAYY, ZAC Consulting Unavailable DERROW, SIMEON Consulting Unavailable MARCEL ., DANE Consulting Unavailable MISC, DR ZAMUDIO Admitting Unavailable MISC, DR ZAMUDIO Primary Care Unavailable MISC, DR ZAMUDIO Attending Unavailable MISC, DR ZAMUDIO Admitting Unavailable MISC, DR ZAMUDIO Attending Unavailable [facility] Primary Care Unavaila ble MARKER ., DR ESTEBAN Admitting Unavailable MARKER ., DR ESTEBAN Consulting Unavailable MARKER ., DR ESTEBAN Attending Unavailable [facility] Primary Care Unavaila ble YEH, BRIDGETTE Consulting Unavailable MARKER ., DR ESTEBAN Admitting Unavailable MARKER ., DR ESTEBAN Attending Unavailable MISC, DR ZAMUDIO Primary Care Unavailable RAHUL ., JENNIFER Consulting Unavailable DO Terrence Ochoa Emergency Provider Unavai sagar OSUNA, EUGENE HARDWICK Referring Unavaila ble OSUNA, EUGENE HARDWICK Attending Unavaila ble OSUNA, EUGENE HARDWICK Attending Unavaila ble OSUNA, EUGENE HARDWICK Referring Unavaila ble OSUNA, EUGENE HARDWICK Referring Unavaila ble OSUNA, EUGENE HARDWICK Attending Unavaila ble Bharat Carreon Unavailable RINA VALLEJO Attending Unavailable Unavailable Primary Care Provider UnavailRINA Hogan Referring Unavailable [facility] Primary Care Provider [phone] MD Flako Guaman Attending Provider Pcp, Not In System Primary Care Provider Unavail able MD Matti Newsome Attending Provider [facility] Primary Care Provider MD Flako Guaman Attending Provider MD Matti Newsome Attending Provider MD Raymond Hector Emergency Provider Julia RUVALCABA, Matti Winters Unavailable [facility], Services Primary Care Provider [phone] Jean DO Bridgette RODRIGUEZ Attending Provider [phone] DO Cristian Prasad Referring Provider OBI SILVESTRE Attending Unavailable MATTI NEWSOME Referring Unavailabl e MD Jose Manuel Burgos Attending Provider [phone] Young Jones MD Primary Care Provider JOSE MANUEL BURGOS Admitting Unavailable JOSE MANUEL BURGOS Attending Unavailable YOUNG JONES Primary Care Unavailable WANDER GA Consulting Unavailable JOSE MANUEL BURGOS Referring Unavailable YOUNG JONES Primary Care Unavailable [facility] Primary Care Provider [phone] ALVINA PRYOR Attending Unavailable ALVINA PRYOR Admitting Unavailable [facility] Primary Care Provider [phone] MD Toy Frances Jr Emergency Provider Unavailable Primary Care Provider Unavailabl e [facility] Primary Care Provider REMEDIOS PRYOR Attending Unavailab REMEDIOS Van Admitting Unavailab Tonny Lorenzo Attending Unavailable EUGENE OSUNA Attending Unavailable GENERIC PROVIDER, NO ASSIGNED PCP Primary Care Unavailable EUGENE OSUNA Referring Unavailable GENERIC PROVIDER, NO ASSIGNED PCP Primary Care Unavailable JULIA BANSAL Attending Unavailable RONEN RAYA Attending Unavailable RONEN RAYA Referring Unavailable RONEN RAYA Attending Unavailable Mayur Judd Attending Unavailable Tonny Chiu Attending Unavailable [facility] Primary Care Provider [phone] MD Ronen Raya Jr Attending Provider NON STAFF Attending Provider Unavailable FLAKO GUAMAN Attending Unavailable FLAKO GUAMAN Referring Unavailable FLAKO GUAMAN Attending Unavailable [facility] Primary Care Provider MD Ronen Raya Jr Attending Provider NON STAFF Attending Provider Unavailable Meche Dukes Attending Unavailable ALVINA PRYOR Attending Unavailable RICE, CRISTIAN Primary Care Unavailable ALVINA PRYOR Attending Unavailable ALVINA PRYOR Admitting Unavailable ALVINA PRYOR Attending Unavailable Unallocated , Basilios Provider Primary Care Provi jose MARGARET CARDENAS Referring Unavailable MARGARET CARDENAS Attending Unavailable MARGARET CARDENAS Admitting Unavailable RICE, CRISTIAN Primary Care Unavailable SYLWIAALVINA CORDERO Attending Unavailable ALVINA PRYOR Admitting Unavailable RICE, CRISTIAN Primary Care Unavailable Mayur Judd Attending Unavailable NON STAFF Attending Provider Unavailable GAVIN Carreon Attending Provider Jose Manuel Burgos Admitting Unavailable Jose Manuel Burgos Attending Unavailable [facility] Primary Care Unavaila ble Jose Manuel Burgos Admitting Unavailable Jose Manuel Burgos Attending Unavailable [facility] Primary Care Unavaila ble [facility] Primary Care Unavaila ble Matti Newsome Admitting Unavailabl e Matti Newsome Attending Unavailabl e [facility] Primary Care Unavaila ble Raymond Hector Attending Unavailable Raymond Hector Admitting Unavailable Toy Frances Jr Admitting Unavailable Toy Frances Jr Attending Unavailable [facility] Primary Care Unavaila ble [facility] Primary Care Unavaila ble NON STAFF Admitting Unavailable NON STAFF Attending Unavailable [facility] Primary Care Unavaila ble Ronen Raya Jr Admitting Unavailable Ronen Raya Jr Attending Unavailable [facility] Primary Care Unavaila ble Mast - F[facility], Bridgette Admitting Unavailable Mast - F[facility], Bridgette Attending Unavailable Osmar, Cristian Referring Unavailable [facility] Primary Care Unavaila ble Mast - [facility], Bridgette Admitting Unavailable Mast - [facility], Bridgette Attending Unavailable Osmar, Cristian Consulting Unavailable [facility] Primary Care Unavaila ble Bharat Carreon Admitting Unavailable Bharat Carreon Attending Unavailable [facility] Primary Care Unavaila ble Flako Guaman P Admitting Unavailable Flako Guaman Attending Unavailable RICE, CRISTIAN Primary Care Unavailable Brien Aguayo Attending Unavailable NED RIVAS Admitting Unavailable NED RIVAS Attending Unavailable NED RIVAS Referring Unavailable PCP, NOT IN SYSTEM Primary Care Unavailable NED RIVAS Attending Unavailable NED RIVAS Referring Unavailable PCP, NOT IN SYSTEM Primary Care Unavailable GLENNA COLLADO Attending Unavailable PCP, NOT IN SYSTEM Primary Care Unavailable HUBER RAMOS Attending Unavailable MCKAY NED E Referring Unavailable PCP, NOT IN SYSTEM Primary Care Unavailable GUILLERMO RODRIGUEZ Attending Unavailable GUILLERMO RODRIGUEZ Referring Unavailable PCP, NOT IN SYSTEM Primary Care Unavailable HUBER RAMOS Attending Unavailable MCKAY, NED E Referring Unavailable PCP, NOT IN SYSTEM Primary Care Unavailable EUGENE RODRIGUEZ Attending Unavailable EUGENE RODRIGUEZ Referring Unavailable PCP, NOT IN SYSTEM Primary Care Unavailable HUBER RAMOS Attending Unavailable MCKAY NED E Referring Unavailable PCP, NOT IN SYSTEM Primary Care Unavailable GUILLERMO RODRIGUEZ Attending Unavailable GUILLERMO RODRIGUEZ Referring Unavailable PCP, NOT IN SYSTEM Primary Care Unavailable HUBER RAMOS Attending Unavailable MCKAY, NED E Referring Unavailable PCP, NOT IN SYSTEM Primary Care Unavailable MCKAY NED E Attending Unavailable MCKAY, NED E Referring Unavailable PCP, NOT IN SYSTEM Primary Care Unavailable Allergies Allergy Classification Reported Allergen(s) Allergy Type Date of Onset Reaction(s) Facility Acetaminophen / HYDROcodone (2 sources) Acetaminophen / HYDROcodone; Translations: [Vicodin TABS] Drug Allergy 017 Nausea And Vomiting, Headache [facility] 130 DO Work Phone: Antihistamines (2 sources) hydrOXYzine; Translations: [Vistaril] Drug Allergy [address] [facility] 130 DO Work Phone: Cephalosporins (antibiotic) (2 sources) Cephalexin; Translations: [Keflex] Drug Allergy 024 [facility] hydroCHLOROthiazide (2 sources) hydroCHLOROthiazi de; Translations: [hydroCHLOROthiaz mandie TABS] Drug Allergy 024 [facility] 130 DO Work Phone: lurasidone (1 source) lurasidone Drug Allergy 024 Rash [facility] Opioid Agonists (2 sources) Morphine; Translations: [morphine] Drug Allergy 013 Hives, Rash [facility] 130 DO Work Phone: Orphenadrine (2 sources) Orphenadrine; Translations: [Norflex] Drug Allergy 024 Itching -Orthopaedic [facility] 130 DO Work Phone: Penicillins (antibiotic) (2 sources) Penicillins; Translations: [Penicillins] Drug Allergy 013 Hives, Rash [facility] 130 DO Work Phone: Phenazopyridine (2 sources) Phenazopyridine; Translations: [Pyridium] Drug Allergy 024 Headache -Orthopaedic [facility] 130 DO Work Phone: Sulfonamides (antibiotic) (2 sources) Sulfamethoxazole; Translations: [sulfa] Drug Allergy 013 Hives, Rash [facility] 130 DO Work Phone: (20 sources) Acetaminophen / HYDROcodone; Translations: [Vicodin TABS] Drug Allergy 017 Unknown, Nausea, Vomiting [facility] Work Phone: (20 sources) Cephalexin; Translations: [Keflex] Drug Allergy 016 rash [facility] Repository (20 sources) hydroCHLOROthiazi de; Translations: [hydroCHLOROthiaz mandie TABS] Drug Allergy 016 Hives, Rash, Other (See Comments) [facility] Work Phone: (20 sources) hydrOXYzine; Translations: [Vistaril] Drug Allergy 016 [facility] Repository (20 sources) Morphine; Translations: [morphine] Drug Allergy 013 Hives, Rash, Unknown, Other [facility] (20 sources) Orphenadrine; Translations: [Norflex] Drug Allergy Unknown [facility] Repository (20 sources) Penicillins; Translations: [Penicillins] Allergy to drug (finding) [address] [facility] (20 sources) Phenazopyridine; Translations: [Pyridium] Drug Allergy 016 [facility] Repository (20 sources) Sulfonamides (Antibiotic); Translations: [sulfa] Allergy to drug (finding) -Orthopaedic [facility] Work Phone: (20 sources) Acetaminophen / HYDROcodone; Translations: [Vicodin] Drug Allergy Unknown [facility] Repository (20 sources) hydrOXYzine Drug Allergy Hives, Rash, Itching, Unknown [facility] (20 sources) lurasidone; Translations: [LURASIDONE] Drug Allergy 019 Seizure, muscle cramps [facility] (20 sources) Penicillin; Translations: [penicillin] Drug Allergy Rash [facility] Repository (20 sources) Phenazopyridine; Translations: [PHENAZOPYRIDINE] Drug Allergy 013 Headache, Headaches, Other (See Comments), Unknown [facility] (20 sources) Sulfonamides (Antibiotic); Translations: [sulfa drugs] Propensity to adverse reactions Unknown [facility] (20 sources) Cephalexin; Translations: [cephalexin] Drug Allergy 013 Hives, Rash, Other [facility] (20 sources) hydroCHLOROthiazi de; Translations: [hydroCHLOROthiaz mandie] Drug Allergy 016 Hives, Rash, Other [facility] (20 sources) HYDROcodone; Translations: [hydrocodone] Drug Allergy 022 Nausea And Vomiting [facility] (20 sources) Orphenadrine; Translations: [orphenadrine] Drug Allergy Hives, Rash, Itching [facility] (20 sources) Sulfonamides (Antibiotic); Translations: [SULFA (SULFONAMIDE ANTIBIOTICS)] Allergy to substance Hives, Rash [facility] (8 sources) lurasidone; Translations: [Latuda] Drug Allergy 018 [facility] Repository (2 sources) Phenoperidine; Translations: [phenoperidine] Drug Allergy Rash [facility] Repository (11 sources) pyridimal; Translations: [pyridimal] Propensity to adverse reactions to drug (disorder) Headache [facility] Repository (1 source) Penicillins Drug allergy (disorder) [facility] Repository (1 source) Sulfonamides (Antibiotic) Drug allergy (disorder) [facility] Repository (20 sources) dupilumab; Translations: [DUPILUMAB] Drug Allergy rash, Other (See Comments) [facility] (20 sources) Substance with sulfonamide structure and antibacterial mechanism of action (substance) Drug allergy Rash, Hives, Unknown [facility] Other (14 sources) Acetaminophen / HYDROcodone; Translations: [HYDROCODONE-ACET AMINOPHEN] Drug Allergy Nausea Only, Nausea And Vomiting, Headache, GI intolerance [facility] Repository (7 sources) hydrOXYzine; Translations: [HYDROXYZINE PAMOATE] Drug Allergy Hives, Rash [facility] Repository (7 sources) HYDROCODONE-GUAIF ENESIN; Translations: [HYDROCODONE-GUAI FENESIN] Propensity to adverse reactions to drug (disorder) Headache, Nausea/vomiti ng [facility] Repository (4 sources) Penicillins Drug Allergy [facility] Work Phone: (10 sources) hydrOXYzine; Translations: [HYDROXYZINE HCL] Drug Allergy [facility] (11 sources) Orphenadrine; Translations: [ORPHENADRINE CITRATE] Drug Allergy [facility] (11 sources) penicillAMINE; Translations: [PENICILLAMINE] Drug Allergy Hives, [facility] (10 sources) Phenoperidine; Translations: [PHENOPERIDINE HCL] Drug Allergy [facility] (2 sources) Acetaminophen; Translations: [acetaminophen] Drug Allergy [facility] (1 source) lurasidone Drug Allergy 019 Other (See Comments), Myalgia, Seizure [facility] (1 source) Phenazopyridine Drug Allergy Other (See Comments) [facility] (1 source) sulfaSALAzine Drug Allergy 01-22-2 014 Rash [facility] (8 sources) lurasidone Drug Allergy 019 Rash, Other [facility] (8 sources) Penicillins Drug Allergy Hives, Rash, Unknown [facility] (7 sources) Dupilumab Allergy to substance Hives [facility] (1 source) hydrOXYzine Drug Allergy [facility] Repository (1 source) lurasidone Drug Allergy [facility] Repository (1 source) Penicillins Drug allergy (disorder) [facility] Repository (1 source) Phenazopyridine Drug Allergy [facility] Repository (1 source) dupilumab Drug allergy (disorder) [facility] Repository Medications Current Medications Medication Drug Class(es) Dates Sig (Normalized) Sig (Original) acetaminophen 650 mg rectal suppository (20 sources) Start: 02-04-2024 acetaminophen (TYLENOL) suppository 650 mg Start: 06-08-2023 acetaminophen (TYLENOL) 500 MG tablet Take 2 tablets by mouth as needed 0 06/08/2023 Active Start: 06-08-2023 acetaminophen (Tylenol) 500 mg tablet Take 2 tablets (1,000 mg) by mouth if needed. EVERY 6 TO 8 HOURS 0 06/08/2023 Active Start: 09-10-2022 take 2 tablets by mo uth every eight hours as needed Acetaminophen 500 MG 2 tablet as needed Orally every 8 hrs for 30 days Aug, Active Start: 03-01-2021 End: 06-16-2024 take 650 mg by mouth every four hours Acetaminophen Discontinued 650 MG PO Q4H 0 March 01, 2021 12:00am June 16, 2024 10:09am alendronic acid 70 mg oral tablet (20 sources) Bisphosphonate Start: 07-20-2018 take 1 tablet by mouth every week Alendronate (Fosamax) 70 mg tablet Active 70 MG PO every week March 10, 2019 12:00am takes on sundays Start: 07-20-2018 alendronate (F osamax) 70 MG tablet Take 70 mg by mouth every 7 days. 03/16/2024 Active aluminum hydroxide 50.8 mg/ml / magnesium carbonate 47.5 mg/ml oral suspension (9 sources) Start: 06-05-2023 take 10 mL by mouth once daily at bedtime Heartburn Relief 254-237.5 mg/5 mL suspension Take 10 mL by mouth once daily at bedtime. 0 06/05/2023 Active Start: 05-04-2023 take 10 mL by mouth at bedtime Gaviscon Extra Strength 254- 237.5 MG/5ML 10 ml Orally at bedtime for 30 days Apr, Active {1 (ascorbic acid 7540 MG / polyethylene glycol 3350 64720 MG / potassium chloride 1200 MG / sodium ascorbate 81055 MG / sodium chloride 3200 MG Powder for Oral Solution) / 1 (polyethylene glycol 3350 843727 MG / potassium chloride 1000 MG / sodium chloride 2000 MG / sodium sulfate 9000 MG Powder for Oral Solution) } Pack [Plenvu] (4 sources) Osmotic Laxative, Vitamin C Start: 10-28-2021 Plenvu 140 GM dose 1 pouch a t 4pm, dose 2 pouch A & B at 11pm Orally BID for 1 days BIN:[id number]: [id number] Oct, Active atorvastatin 40 mg oral tablet (20 sources) HMG-CoA Reductase Inhibitor Start: 11-08-2020 take 40 mg by mouth once daily at bedtime Atorvastatin Active 40 MG PO Daily at bedtime November 08, 2020 1:00am Start: 08-26-2017 End: 03-10-2019 take 40 mg by mouth once daily Atorvastatin Discontinu ed 40 MG PO Daily August 26, 2017 1:00am March 10, 2019 2:54pm brexpiprazole 0.5 mg oral tablet (20 sources) Atypical Antipsychotic Start: 06-19-2023 take 1 tablet by mouth once daily brexpiprazole (REXULTI) 3 MG TABS tablet Take 1 tablet by mouth daily 0 06/19/2023 Active Start: 12-17-2022 End: 02-09-2024 take 1 tablet by mouth once daily as needed Brexpiprazole (Rexulti) 0.5 mg tablet Active 0.5 MG PO Daily February 09, 2024 8:21am takes this dose prn in afternoon Start: 01-14-2022 take 1 tablet by adriana th once daily Brexpiprazole (Rexulti) 2 mg tablet Active 3 MG PO Daily August 29, 2022 1:00am Start: 07-25-2021 take 1.5 tablets by mouth in the morning REXULTI 2 mg tablet Take 1.5 tablets (3 mg total) by mouth in the morning. 07/25/2021 Active take 1 tablet by adriana every twenty-four hours Rexulti 0.5 MG 1 tablet Orally Once a day 3mg in the am .05 as needed Active Ca-D3-mag et-spth-mag-nancy-bor (Calcium 600-D3 Plus, mag-zinc,) 600 mg calcium- 20 mcg-50 mg tablet (3 sources) Start: 07-20-2018 take 1 tablet by mouth once daily Ca-D3-mag bd-vppk-reb-nancy-bor (Calcium 600-D3 Plus, mag-zinc,) 600 mg calcium- 20 mcg-50 mg tablet Take 1 tablet by mouth once daily. 0 07/20/2018 Active Calcium (8 sources) Phosphate Binder, Calcium Calcium Active calcium citrate 1500 mg / cholecalciferol 200 unt oral tablet (20 sources) Vitamin D Start: 06-19-2023 calcium citrat e-vitamin D3 (Citracal+D) 315 mg-5 mcg (200 unit) tablet Take by mouth. 0 06/19/2023 Active Start: 12-17-2022 calcium citrat e-vitamin D (CITRACAL+D) 315-5 MG-MCG TABS per tablet 1 tablet 0 12/17/2022 Active Start: 12-17-2022 [facility] Calcium Citrate-Vitamin D3 (Calcium Citrate + D) 315 mg-5 mcg (200 unit) tablet Active 1 TAB PO Twice daily December 17, 2022 12:00am Start: 10-21-2021 Calcium Citrat e-Vitamin D 315-200 MG-UNIT Oral Tablet Quantity: 60 Refills: 0 Ordered: 08-Feb-2022 DO Start : 21-Oct-2021 Complete carBAMazepine 200 mg oral tablet (20 sources) Mood Stabilizer Start: 12-17-2022 carBAMazepine (TEGretol) 200 MG tablet 100 mg 2 times daily. 12/17/2022 Active Start: 12-17-2022 take 1 tablet by adriana twice daily carBAMazepine (TEGRETOL) 200 MG tablet Take 1 tablet by mouth 2 times daily 0 12/17/2022 Active Start: 12-17-2022 take 100 mg by mouth twice daily Carbamazepine Active 100 MG PO Twice daily December 17, 2022 12:00am Start: 11-12-2022 carBAMazepine (TEGretol) 100 mg chewable tablet Chew 1 tablet (100 mg) 2 times a day. 0 11/12/2022 Active carBAMazepine (T EGretol) 100 mg chewable tablet every 12 (twelve) hours. Active take 1 tablet by adriana every twelve hours carBAMazepine ER 100 MG 1 tablet Orally Twice a day Active cetirizine hydrochloride 10 mg oral tablet (20 sources) Histamine-1 Receptor Antagonist Start: 02-09-2024 take 1 tablet by mouth once daily Cetirizine (Zyrtec) 10 mg tablet Active 10 MG PO Daily February 09, 2024 8:11am Start: 12-17-2022 End: 02-09-2024 take 1 tablet by mouth twice daily Cetirizine (24hour Allergy) 10 mg tablet Discontinued 10 MG PO Twice daily January 22, 2024 12:00am February 09, 2024 8:11am Start: 03-10-2019 End: 08-29-2022 take 1 capsule by mouth once daily Cetirizine (Zyrtec) 10 mg Capsule Discontinued 10 MG PO Daily May 23, 2019 12:00am August 29, 2022 9:49am cetirizine (ZyrT EC) 5 MG chewable tablet Chew Daily. Active take 1 capsule by mo [facility] twice daily Cetirizine HCl 10 MG CAPS Take 10 mg by mouth 2 times daily 0 Active take 1 tablet by adriana th once daily cetirizine (ZyrTEC) 10 mg tablet Take 1 tablet (10 mg) by mouth once daily. 0 Active cholecalciferol 0.125 mg oral tablet (20 sources) Vitamin D Start: 10-27-2023 take 1 tablet by mouth in the morning cholecalciferol (Vitamin D-3) 125 MCG (5000 UT) tablet Take 5,000 Units by mouth in the morning. 10/27/2023 Active Start: 10-27-2023 take 1 tablet by adriana th once daily Cholecalciferol (Vitamin D3) (Vitamin D3) 125 mcg (5,000 unit) tablet Active 125 MCG PO Daily October 27, 2023 1:00am Start: 05-23-2019 End: 11-11-2021 take 1 tablet by mouth once daily Cholecalciferol (Vitamin D3) (Vitamin D3) 5,000 unit Tablet Discontinued 5000 UNIT PO Daily May 23, 2019 12:00am November 11, 2021 10:02am take 1 capsule by mo uth in the morning cholecalciferol (Vitamin D-3) 25 MCG (1000 UT) capsule Take 1,000 Units by mouth in the morning. Active cholecalciferol (Vitamin D-3) 25 MCG (1000 UT) tablet Take 1 tablet (1,000 Units) by mouth. 0 Active Vitamin D3 TABS TAKE DIRECTED. Refills: 0 Active chondroitin sulfates 400 mg / glucosamine hydrochloride 500 mg oral capsule (20 sources) Start: 07-20-2018 take 1 capsule by mouth twice daily glucosamine-chondroitin 500-400 mg capsule Take 1 capsule by mouth 2 times a day. 0 07/20/2018 Active Start: 07-20-2018 take 1 capsule by mo uth twice daily Glucosamine-Chondroitin 500-400 MG Oral Capsule Take 1 capsule twice daily Quantity: 0 Refills: 0 Ordered: 19-Apr-2020 DO Start : 20-Jul-2018 Active Start: 07-20-2018 take 1 capsule by mo uth twice daily Glucosamine-Chondroitin 500-400 MG Oral Capsule Take 1 capsule twice daily Quantity: 0 Refills: 0 Ordered: 19-Apr-2020 DO Start : 20-Jul-2018 Active Start: 07-20-2018 take 1 capsule by mo uth once daily Glucosamine-Chondroitin 500-400 MG Oral Capsule take 1 cap daily Refills: 0 Start : 20-Jul-2018 Active clobetasol propionate 0.5 mg/ml topical cream (20 sources) Corticosteroid Start: 04-21-2023 clobetasol (TE MOVATE) 0.05 % cream Apply 1 Application topically as needed 0 04/21/2023 Active Start: 05-15-2019 End: 05-23-2019 Clobetasol Discontinued May 12:00am May 23, 2019 11:52am diclofenac sodium 0.01 mg/mg topical gel (20 sources) Nonsteroidal Anti-inflammatory Drug Start: 06-05-2023 Voltaren Arthriti s Pain 1 % gel gel Apply 4.5 inches (1 Application) topically 3 times a day. 0 06/05/2023 Active Start: 06-05-2023 Voltaren Arthr itis Pain 1 % gel gel Apply 1 Application topically 3 times a day. 0 06/05/2023 Active Start: 03-10-2019 End: 06-08-2020 take 75 mg by mouth twice daily Diclofenac Potassium Discontinued 75 MG PO Twice daily March 10, 2019 12:00am June 08, 2020 12:59pm Start: 11-19-2017 End: 06-15-2024 take 1 tablet by mouth twice daily Diclofenac Sodium Discontinued 75 MG PO Twice daily June 08, 2020 12:00am November 29, 2023 11:33am TAKE 1 TABLET BY MOUTH TWICE A DAY Diclofenac Activ e dicyclomine hydrochloride 10 mg oral capsule (20 sources) Anticholinergic Start: 10-25-2021 Dicyclomine HC l - 10 MG Oral Capsule Quantity: 90 Refills: 0 Ordered: 06-Feb-2022 DO Start : 25-Oct-2021 Complete Start: 10-20-2021 End: 06-16-2024 take 10 mg by mouth three times daily Dicyclomine Discontinued 10 MG PO Three times daily October 20, 2021 1:00am June 16, 2024 10:10am take 0.5 tablet by m outh three times daily dicyclomine (BENTYL) 20 mg tablet Take 0.5 tablets (10 mg total) by mouth 3 (three) times a day. Active diphenhydrAMINE hydrochloride 25 mg oral tablet (20 sources) Histamine-1 Receptor Antagonist Start: 05-20-2023 diphenhydrAMINE (Sominex) 25 mg tablet Take 1-2 tablets (25-50 mg) by mouth as needed at bedtime for itching. 0 05/20/2023 Active Start: 12-17-2022 End: 10-27-2023 Diphenhydramine Hcl (Banophe n) 25 mg capsule Discontinued 25 - 50 MG PO Daily at bedtime December 17, 2022 12:00am October 27, 2023 9:33am take 1 capsule by mo uth every six hours as needed diphenhydrAMINE (BENADRYL) 25 mg capsule Take 1 capsule (25 mg total) by mouth every 6 (six) hours as needed for itching. Active diphenhydrAMINE (BENADryl) 12.5 MG/5ML elixir Take by mouth. Active Banophen Active docusate sodium 100 mg oral capsule (4 sources) Start: 05-29-2023 take 1 capsule by mouth twice daily as needed docusate (COLACE, DULCOLAX) 100 MG CAPS Take 100 mg by mouth 2 times daily as needed 0 05/29/2023 Active doxepin hydrochloride 25 mg oral capsule (20 sources) Tricyclic Antidepressant Start: 03-18-2024 End: 03-18-2025 take 25 mg by mouth once daily at bedtime Doxepin Active 25 MG PO Daily at bedtime June 16, 2024 12:00am Start: 09-24-2019 End: 10-28-2019 take 10 mg by mouth once daily Doxepin Discontinued 10 MG PO Daily September 24, 2019 1:00am October 28, 2019 2:33pm 0.5 ml dulaglutide 1.5 mg/ml auto-injector (20 sources) GLP-1 Receptor Agonist Start: 03-23-2023 inject 0.75 mg by subcutaneous injection every week Trulicity 0.75 mg/0.5 mL pen injector Inject 0.75 mg under the skin 1 (one) time per week. 0 03/23/2023 Active Trulicity 3 MG/0 .5ML as directed Subcutaneous ONCE A WEEK 4.5 mg Active Trulicity 3 MG/0 .5ML as directed Subcutaneous ONCE A WEEK Active Trulicity Active Dulaglutide (Trulicity) 4.5 mg/0.5 mL pen injector (15 sources) Start: 12-11-2023 Dulaglutide (T rulicity) 4.5 mg/0.5 mL pen injector Active 4.5 MG SUBCUT every week December 11, 2023 12:00am Start: 10-27-2023 Dulaglutide (T rulicity) 4.5 mg/0.5 mL pen injector Active 4.5 MG SUBCUT every week October 27, 2023 1:00am tuesdays Start: 10-27-2023 Dulaglutide (T rulicity) 4.5 mg/0.5 mL pen injector Active 0.75 MG SUBCUT every week October 27, 2023 12:00am dulaglutide (Trulicity) 4.5 MG/0.5ML solution pen-injector (2 sources) inject 4.5 mg by subcutaneous injection every week dulaglutide (Trulicity) 4.5 MG/0.5ML solution pen-injector Inject 4.5 mg under the skin 1 (one) time per week. Active dulaglutide 4.5 mg/0.5 mL pen injector (9 sources) Start: 12-31-2022 inject 4.5 mg by subcutaneous injection every week dulaglutide 4.5 mg/0.5 mL pen injector Inject 4.5 mg under the skin once a week. Takes on 12/31/2022 Active Start: 12-31-2022 inject 4.5 mg by sub cutaneous injection every week dulaglutide 4.5 mg/0.5 mL pen injector Inject 4.5 mg under the skin once a week. 0 12/31/2022 Active Dulaglutide 4.5 MG/0.5ML SOPN (1 source) Start: 12-31-2022 Dulaglutide 4. 5 MG/0.5ML SOPN Inject 4.5 mg into the skin once a week 0 12/31/2022 Active 2 ml dupilumab 150 mg/ml auto-injector (15 sources) Interleukin-4 Receptor alpha Antagonist Start: 01-09-2023 DUPIXENT PEN 300 mg/ 2 mL pen injector SUBQ injection pen Inject 2 mL (300 mg total) under the skin every 14 (fourteen) days. 01/09/2023 Active Dupixent 300 MG/ 2ML as directed Subcutaneous Active 0.4 ml enoxaparin sodium 100 mg/ml prefilled syringe (1 source) Low Molecular Weight Heparin Start: 02-05-2024 enoxaparin (LOVENOX) injection 40 mg ergocalciferol 1.25 mg oral capsule (4 sources) Provitamin D2 Compound Start: 06-19-2023 Vitamin D2 1,250 mcg (50,000 unit) capsule Take 1 capsule (50,000 Units) by mouth. 0 06/19/2023 Active Start: 09-27-2021 take 1 capsule by mouth once V itamin D (Ergocalciferol) 1.25 MG (80370 UT) Oral Capsule TAKE 1 CAPSULE A DAY EVERY SUN {Q1W1} Quantity: 4 Refills: 0 Ordered: 03-Feb-2022 DO Start : 27-Sep-2021 Complete estradiol 0.1 mg/ml vaginal cream (3 sources) Estrogen Start: 11-27-2022 estradiol (Est race) 0.01 % (0.1 mg/gram) vaginal cream Insert 0.25 Applicatorfuls (1 g) into the vagina if needed. INSERT 1 GM VAGINALLY 2 TO 3 TIMES PER WEEK AT BEDTIME FOR 90 DAYS 0 11/27/2022 Active etodolac 200 mg oral capsule (20 sources) Nonsteroidal Anti-inflammatory Drug Start: 10-03-2023 End: 06-15-2024 take 200 mg by mouth twice daily Etodolac Active 200 MG PO Twice daily October 27, 2023 1:00am Start: 10-03-2023 take 1 capsule by mo uth in the morning, then take 1 capsule by mouth at bedtime etodolac (LODINE) 200 mg capsule Take 1 capsule (200 mg total) by mouth in the morning and 1 capsule (200 mg total) before bedtime. 60 capsule 3 10/03/2023 Active Start: 06-19-2023 End: 09-30-2023 take 1 capsule by mouth twice daily etodolac (LODINE) 200 MG capsule Take 1 capsule by mouth 2 times daily 0 06/19/2023 Active Famotidine (20 sources) Histamine-2 Receptor Antagonist Start: 02-04-2024 famotidine (PEPCID) tablet 20 mg Start: 05-09-2020 End: 03-01-2021 take 1 tablet by mouth twice daily Famotidine (Pepcid) 20 mg tablet Discontinued 20 MG PO Twice daily June 08, 2020 12:00am March 01, 2021 2:00pm TAKE 1 TABLET BY MOUTH TWICE A DAY Start: 08-26-2017 End: 03-10-2019 take 2 tablets by mouth once daily Famotidine Discontinued 2 TAB PO Daily August 26, 2017 1:00am March 10, 2019 2:55pm Famotidine 20 MG Oral Tablet Quantity: 0 Refills: 0 Ordered: 24-May-2020 DO Active ferrous gluconate (5 sources) take 1 tablet by adriana th once daily ferrous gluconate 236 mg (27 mg iron) tablet Take 65 mg by mouth once daily. 0 Active Iron TABS TAKE 6 5MG DAILY DIRECTED Refills: 0 Active flaxseed oiL oil (3 sources) take 1000 mg by mouth once daily flaxseed oiL oil Take 1,000 mg by mouth once daily. 0 Active fluticasone propionate 0.05 mg/actuat metered dose nasal spray (20 sources) Corticosteroid Start: 04-22-2023 take 1 spray(s) [...] Propionate (Flon ase Allergy Relief) 50 mcg/actuation [place],Suspension Discontinued 1 SPRAY INTRANASAL Twice daily March 10, 2019 12:00am March 01, 2021 2:00pm 120 actuat formoterol fumarate 0.005 mg/actuat / [...] PUFF INHALATION Twice daily October 07, 2019 1:00am June 08, 2020 1:01pm Start: 07-20-2018 take 2 puff(s) by in halation twice daily mometasone-formoterol (DULERA) 200-5 MCG/ACT inhaler Inhale 2 puffs into the lungs 2 times daily 0 07/20/2018 Active Start: 07-20-2018 take 2 puff(s) by in halation twice daily Dulera 200-5 MCG/ACT Inhalation Aerosol INHALE 2 PUFFS TWICE DAILY. Refills: 0 Start : 20-Jul-2018 Active 8.8 GM Inhaler Start: 08-26-2017 End: 10-07-2019 Mometasone-Formoterol Discon tinued 2 INH INHALATION Twice daily August 26, 2017 1:00am October 07, 2019 8:50pm take 2 puff(s) by in halation in the morning mometasone-formoterol (DULERA 200) 200-5 mcg/actuation inhaler Inhale 2 puffs in the morning and 2 puffs before bedtime. Active take 2 puff(s) by in halation [...] mg Active hydrocortisone 25 mg/ml topical cream (4 sources) Corticosteroid Start: 06-19-2023 hydrocortisone (Anusol-HC) 2.5 % rectal cream Insert 1 Application into the rectum 2 times a day. 0 06/19/2023 Active Start: 10-01-2021 Hydrocortisone 1 % External Cream Quantity: 28 Refills: 0 Ordered: 01-Oct-2021 DO Start : 01-Oct-2021 Complete 1 ml HYDROmorphone hydrochloride 1 mg/ml cartridge (3 sources) Opioid Agonist Start: 02-04-2024 End: 02-04-2024 HYDROmorphone (DILAUDID) injection 0.2 mg Start: 02-04-2024 End: 02-04-2024 HYDROmorphone (DILAUDID) inj ection 0.5 mg ivermectin 3 mg oral tablet (14 sources) Antiparasitic, Pediculicide Start: 02-07-2022 ivermectin (Stromectol) 3 mg tablet Take 1 tablet (3 mg) by mouth. 0 02/07/2022 Active levETIRAcetam 250 mg oral tablet (20 sources) Start: 11-30-2023 take 250 mg by mouth every twelve hours Levetiracetam Active 250 MG PO Every 12 hours November 30, 2023 2:43pm Start: 02-11-2022 End: 02-01-2024 take 250 mg by mouth twice daily Levetiracetam Discontinued 250 MG PO Twice daily August 29, 2022 1:00am November 30, 2023 2:44pm levETIRAcetam (K eppra) 250 MG tablet every 12 (twelve) hours. Active lidocaine 0.05 mg/mg topical ointment (20 sources) Antiarrhythmic, Amide Local Anesthetic Start: 03-18-2024 End: 04-01-2024 lidocaine (Xylocaine) 5 % ointment Indications: Occipital neuralgia of right side Apply topically every 6 hours as needed (Occipital nerve pain) for up to 14 days. Apply about 1 gm Q6 hours prn 50 g 03/18/2024 04/01/2024 Active Start: 03-18-2024 End: 03-18-2024 lidocaine (Xylocaine) 5 % oi ntment Indications: Occipital neuralgia of right side Apply topically every 6 hours as needed (Occipital nerve pain) for up to 14 days. 50 g 03/18/2024 03/18/2024 Discontinued (Reorder) Start: 05-30-2019 End: 09-24-2019 Lidocaine Hcl Discontinued 1 APPLIC TOPICAL .every other day May 30, 2019 12:00am September 24, 2019 8:06pm apply small amount to left leg ulcer with dressing changes as needed for pain 50 ml magnesium sulfate 40 mg/ml injection (1 source) Start: 02-04-2024 magnesium sulf ate 2000 mg in 50 mL IVPB premix Mometasone-Formoterol (Dulera) 200-5 mcg/actuation HFA aerosol inhaler (18 sources) Start: 06-08-2020 take 2 puff(s) by [...] 2 PUFFS BY MOUTH TWICE A DAY omega-3 fatty acids-fish oil 360-1,200 mg capsule (3 sources) take 1 capsule by mouth once daily omega-3 fatty acids-fish oil 360-1,200 mg capsule Take 1 capsule (1,200 mg) by mouth once daily. 0 Active omeprazole 40 mg delayed release oral capsule (20 sources) Proton Pump Inhibitor Start: 06-16-2024 take 40 mg by mouth once daily Omeprazole Active 40 MG PO Daily June 16, 2024 12:00am Start: 05-04-2023 End: 06-16-2024 take 40 mg by mouth twice daily Omeprazole Discontinue d 40 MG PO Twice daily October 27, 2023 1:00am June 16, 2024 10:11am take 2 capsules by m outh once daily omeprazole (PRILOSEC) 20 MG capsule Take 2 capsules by mouth daily 0 Active ondansetron 4 mg disintegrating oral tablet (20 sources) Serotonin-3 Receptor Antagonist Start: 03-05-2023 take 1 tablet by mouth three times daily as needed ondansetron ODT (ZOFRAN ODT) 4 mg disintegrating tablet DISSOLVE 1 TABLET BY MOUTH ON THE TONGUE 3 TIMES A DAY NEEDED 03/05/2023 Active Start: 01-09-2023 End: 02-09-2024 take 4 mg by mouth once daily Ondansetron Hcl Disconti nued 4 MG PO Daily 15 January 09, 2023 12:00am February 09, 2024 8:28am Start: 10-25-2021 take 1 tablet by adriana three times daily as needed Zofran ODT [...] Three times daily 9 October 20, 2021 1:00am August 29, 2022 9:48am ondansetron (ZOFRAN-ODT) disintegrating tablet 4 mg (1 source) Start: 02-04-2024 ondansetron (ZOFRAN-ODT) disintegrating tablet 4 mg pilocarpine hydrochloride 7.5 mg oral tablet (20 sources) Cholinergic Receptor Agonist Start: 11-10-2022 take 7.5 mg by mouth three times daily Pilocarpine Hcl Active 7.5 MG PO Three times daily October 27, 2023 1:00am Start: 11-10-2022 pilocarpine (S alagen) 7.5 MG tablet every 8 (eight) hours. 11/10/2022 Active Start: 11-11-2021 End: 10-27-2023 take 7.5 mg by mouth three times daily Pilocarpine Hcl Discontinued 7.5 MG PO Three times daily November 11, 2021 1:00am October 27, 2023 9:28am Start: 11-11-2021 take 5 mg by mouth t hree times daily Pilocarpine Hcl Active 5 MG PO Three times daily November 11, 2021 12:00am Start: 03-08-2020 End: 03-01-2021 take 1 tablet by mouth three times daily Pilocarpine Hcl (Salagen (Pilocarpine)) 5 mg Tablet Discontinued 5 MG PO Three times daily March 08, 2020 12:00am March 01, 2021 2:00pm Pilocarpine HCl - 5 MG Oral Tablet Quantity: 0 Refills: 0 Ordered: 24-May-2020 DO Active 100 ml potassium chloride 0. 1 meq/ml injection (20 sources) Start: 02-04-2024 potassium chlo ride 10 mEq/100 mL IVPB (Peripheral Line) Start: 11-11-2021 Potassium Chlo ride (Klor-Con M20) 20 mEq tablet,ER particles/crystals Active 20 MEQ PO Twice daily November 11, 2021 1:00am Start: 11-11-2021 Potassium Chlo ride (Klor-Con M20) 20 mEq tablet,ER particles/crystals Active 20 MEQ PO Daily November 11, 2021 12:00am Start: 10-21-2021 Potassium Chlo ride ER 20 MEQ Oral Tablet Extended Release Quantity: 60 Refills: 0 Ordered: 08-Feb-2022 DO Start : 21-Oct-2021 Complete Start: 02-02-2017 End: 03-01-2021 Potassium Chloride (Klor-Con M20) 20 mEq Tablet,Er Particles/Crystals Discontinued 20 MEQ PO Twice daily March 10, 2019 12:00am March 01, 2021 2:00pm Start: 02-02-2017 End: 05-15-2019 Potassium Chloride (Klor-Con M20) 20 mEq tablet,ER particles/crystals Discontinued 20 MEQ PO Daily August 26, 2017 1:00am May 15, 2019 2:46pm take 20 mEq by mouth in the morning potassium chloride (Klor-Con) 20 MEQ packet Take 20 mEq by mouth in the morning and 20 mEq before bedtime. Active POTASSIUM CHLORI DE (KLOR-CON M20 ORAL) Take by mouth 2 (two) times a day. Active take 2 tablets by mo uth twice daily at mealtime Klor-Con 20 MEQ 2 tablets with food Orally Twice a day Active POTASSIUM CHLORI DE (KLOR-CON M20 ORAL) Take by mouth 2 (two) times a day. 0 Active pramipexole dihydrochloride 1 mg oral tablet (20 sources) Nonergot Dopamine Agonist Start: 03-05-2021 take 1 mg by mouth twice daily Pramipexole Active 1 MG PO Twice daily March 05, 2021 12:00am Start: 02-02-2017 End: 03-01-2021 take 1 tablet by mouth twice daily Pramipexole (Mirapex) 1 mg tablet Discontinued 1 MG PO Twice daily August 26, 2017 1:00am March 01, 2021 2:00pm pregabalin 150 mg oral capsule (20 sources) Start: 01-22-2024 take 150 mg by mouth three times daily Pregabalin Active 150 MG PO Three times daily January 22, 2024 12:00am Start: 12-05-2023 take 1 capsule by mo uth three times daily pregabalin (LYRICA) 150 mg capsule Indications: Lumbosacral spondylosis without myelopathy , Disorder of sacrum Take 1 capsule (150 mg total) by mouth 3 (three) times a day. 90 capsule 1 12/05/2023 Active Start: 08-25-2023 End: 12-01-2023 take 1 capsule by mouth three times daily pregabalin (LYRICA) 150 mg capsule Indications: Lumbosacral spondylosis without myelopathy , Disorder of sacrum Take 1 capsule (150 mg total) by mouth 3 (three) times a day. 90 capsule 1 11/03/2023 12/01/2023 Discontinued (Reorder) Start: 03-05-2021 End: 01-22-2024 take 100 mg by mouth three times daily Pregabalin Discontinued 100 MG PO Three times daily March 05, 2021 12:00am January 22, 2024 10:57am Start: 06-28-2020 End: 03-01-2021 take 1 capsule by mouth three times daily Pregabalin (Lyrica) 50 mg Capsule Discontinued 50 MG PO Three times daily June 28, 2020 12:00am March 01, 2021 2:00pm Start: 08-26-2017 End: 03-10-2019 take 1 capsule by mouth twice daily Pregabalin (Lyrica) 75 mg capsule Discontinued 75 MG PO Twice daily August 26, 2017 1:00am March 10, 2019 2:57pm take 1 capsule by mo ut every eight hours pregabalin (Lyrica) 75 MG capsule 1 capsule every 8 (eight) hours. Active take 1 capsule by mo uth every twenty-four hours Pregabalin 100 MG 1 capsule Orally Once a day Active psyllium 400 mg oral capsule (3 sources) Start: 01-09-2023 take 1 capsule by mouth every twenty-four hours as needed MetamuciL 0.4 gram capsule Take 1 capsule by mouth once daily as needed. 0 01/09/2023 Active QUEtiapine 50 mg oral tablet (20 sources) [...] MG PO Twice daily August 29, 2022 1:00am December 17, 2022 11:17am 25mg in am & 50mg @ HS Start: 11-11-2021 End: 08-29-2022 take 50 mg by mouth once daily at bedtime Quetiapine Discontinued 50 MG PO Daily at bedtime November 11, 2021 10:03am August 29, 2022 9:49am Start: 10-21-2021 take 1 tablet by adriana [...] 100 MG PO Daily at bedtime March 05, 2021 12:00am November 11, 2021 10:03am Start: 06-08-2020 End: 03-01-2021 take 1 tablet by mouth once daily at bedtime Quetiapine (Seroquel) 100 mg tablet Discontinued 100 MG PO Daily at bedtime June 08, 2020 12:00am March 01, 2021 2:00pm TAKE ONE TABLET BY MOUTH DAILY AT BEDTIME Start: 05-23-2019 End: 06-08-2020 take 2 tablets by mouth at bedtime Quetiapine (Seroquel) 50 mg Tablet Discontinued 100 MG PO Bedtime May 23, 2019 12:00am June 08, 2020 1:06pm Start: 05-15-2019 End: 06-07-2019 take 1 tablet by mouth at bedtime Quetiapine (Seroquel) 50 mg Tablet Discontinued 50 MG PO Bedtime May 15, 2019 12:00am June 07, 2019 9:59am take 1 tablet by adriana th every twenty-four hours SEROquel 200 MG 1 tablet at bedtime Orally Once a day Active 5 ml sodium chloride 9 mg/ml injection (3 sources) Start: 02-04-2024 sodium chlorid e flush 0.9 % injection 5-40 mL Start: 02-04-2024 0.9 % sodium c hloride infusion sucralfate 1000 mg oral tablet (20 sources) Aluminum Complex Start: 11-26-2021 Sucralfate 1 GM Oral Tablet Quantity: 120 Refills: 0 Ordered: 21-Jan-2022 DO Start : 26-Nov-2021 Active Start: 10-28-2021 End: 06-16-2024 take 1 g by mouth four times daily Sucralfate Discontinued 1 GM PO Four times daily November 11, 2021 1:00am June 16, 2024 10:12am Start: 10-28-2021 take 1 tablet by ardiana th every six hours Sucralfate 1 GM [...] PO Four times daily September 24, 2019 1:00am June 08, 2020 1:35pm End: 05-25-2024 sucralfate (Carafate) 1 g ta blet every 6 (six) hours. 05/25/2024 Discontinued (Therapy completed) terazosin 5 mg oral capsule (20 sources) alpha-Adrenergic Marie Start: 12-17-2022 take 5 mg by mouth once daily at bedtime Terazosin Active 5 MG PO Daily at bedtime December 17, 2022 12:00am Start: 06-08-2020 End: 03-01-2021 take 1 capsule by mouth once daily at bedtime Terazosin Discontinued 5 MG PO Bedtime June 08, 2020 12:00am March 01, 2021 2:00pm TAKE 1 CAPSULE BY MOUTH EVERY DAY Terazosin HCl - 5 MG Oral Capsule Quantity: 0 Refills: 0 Ordered: 24-May-2020 DO Active tiZANidine 4 mg oral tablet (20 sources) Central alpha-2 Adrenergic Agonist Start: 08-29-2022 take 1 tablet by mouth every six hours as needed tiZANidine (ZANAFLEX) 4 MG tablet Take 1 tablet by mouth every 6 hours as needed 0 08/29/2022 Active Start: 08-29-2022 take 4 mg by mouth t hree times daily Tizanidine Active 4 MG PO Three times daily August 29, 2022 1:00am Start: 05-15-2019 End: 09-30-2019 take 4 mg by mouth three times daily Tizanidine Discontinued 4 MG PO Three times daily May 15, 2019 12:00am September 30, 2019 1:55pm Start: 08-26-2017 End: 03-10-2019 take 4 mg by mouth three times daily Tizanidine Discontinued 4 MG PO Three times daily August 26, 2017 1:00am March 10, 2019 2:58pm take 1 tablet by adriana th every twelve hours tiZANidine HCl 4 MG 1 tablet as needed Orally two times a day Active tiZANidine HCl - 4 MG Oral Capsule Refills: 0 Active triamcinolone acetonide 1 mg/ml topical cream (20 sources) Corticosteroid Start: 05-27-2023 triamcinolone (Kenalog) 0.1 % cream Apply topically. 0 05/27/2023 Active Start: 08-29-2022 End: 10-27-2023 Triamcinolone Acetonide Disc ontinued 1 APPLIC TOPICAL Twice daily August 29, 2022 1:00am October 27, 2023 9:35am Start: 05-23-2019 End: 10-28-2019 Triamcinolone Acetonide Disc ontinued 1 APPLIC TOPICAL Twice daily May 23, 2019 12:00am October 28, 2019 2:41pm Triamcinolone Ac etonide 0.1 % External Cream Refills: 0 Active Trulicity 4.5 MG/0.5ML solution pen-injector (7 sources) Start: 03-02-2024 inject 4.5 mg by subcutaneous injection every week Trulicity 4.5 MG/0.5ML solution pen-injector Inject 4.5 mg under the skin 1 (one) time per week. 03/02/2024 Active Vitamin B Complex (8 sources) Vitamin B Comple x Active VITAMIN B COMPLEX ORAL (3 sources) take 1 tablet by adriana [...] a day Active vitamin-B complex split tablet (3 sources) take 1 tablet by adriana th once daily vitamin-B complex split tablet Take 1 tablet (2 half tablet) by mouth once daily. 0 Active Completed/Discontinued Medications Medication Drug Class(es) Dates Sig (Normalized) Sig (Original) acetaminophen 325 mg / HYDROcodone bitartrate 5 mg oral tablet (20 sources) Opioid Agonist Start: 02-09-2024 End: 06-16-2024 take 1 tablet by mouth every six hours Hydrocodone-Acetami nophen Discontinued 1 TAB PO Every 6 hours February 09, 2024 12:00am June 16, 2024 10:10am Start: 11-10-2019 End: 03-08-2020 take 1 tablet by mouth every four to six hours Hydrocodone-Acetaminophen ([place]) 5-325 mg tablet Discontinued 1 TAB PO EVERY 4-6 HOURS 40 7 November 10, 2019 March 08, 2020 2:58pm Start: 07-05-2019 End: 09-24-2019 take 1 tablet by mouth every six hours Hydrocodone-Acetaminophen Discontinued 1 TAB PO Q6H 28 7 July 05, 2019 September 24, 2019 8:06pm acetaminophen 325 mg / oxyCODONE hydrochloride 5 mg oral tablet (20 sources) Opioid Agonist Start: 12-31-2022 End: 10-27-2023 take 1-2 tablets by mouth every six hours as needed for pain Oxycodone-Acetaminophen (Percocet) 5-325 mg tablet Discontinued 1 TAB PO Q6H 12 December 31, 2022 October 27, 2023 9:35am May take 1-2 tabs q 6 hours prn pain Start: 07-05-2020 End: 03-01-2021 take 1 tablet by mouth every six hours Oxycodone-Acetaminophen (Percocet) 5-325 mg tablet Discontinued 1 TAB PO Q6H 4 July 05, 2020 March 01, 2021 2:00pm Start: 06-15-2019 End: 03-08-2020 take 1 tablet by mouth every six hours Oxycodone-Acetaminophen (Percocet) 5-325 mg tablet Discontinued 1 TAB PO Q6H 10 2 September 24, 2019 March 08, 2020 2:58pm Start: 03-10-2019 End: 05-15-2019 take 1 tablet by mouth every four to six hours Oxycodone-Acetaminophen (Percocet) 5-325 mg tablet Discontinued 1 TAB PO EVERY 4-6 HOURS 6 March 24, 2019 May 15, 2019 2:46pm Start: 08-26-2017 End: 03-10-2019 take 1 tablet by mouth once Oxycodone-Acetaminophen (Percocet) 5-325 mg tablet Discontinued 1 TAB PO Once August 26, 2017 1:00am March 10, 2019 2:56pm [id number] actuat albuterol 0.09 mg/actuat metered dose inhaler (20 sources) beta2-Adrenergic Agonist Start: 12-11-2023 albut coby sulfate (Ventolin HFA) Active INHALATION December 11, 2023 12:00am Start: 12-17-2022 take 2 puff(s) by in halation every four hours as needed albuterol 108 (90 Base) MCG/ACT inhaler Inhale 2 puffs every 4 hours as needed. 12/17/2022 Active Start: 12-17-2022 take 1 puff(s) by in halation every four hours Albuterol Sulfate (Ventolin Hfa) 90 mcg/actuation HFA aerosol inhaler Active 2 PUFF INHALATION Q4H December 17, 2022 12:00am Start: 06-08-2020 End: 12-17-2022 take 2 puff(s) by mouth every four hours as needed Albuterol Sulfate Discontinued 2 PUFF INHALATION Q4H June 08, 2020 12:00am December 17, 2022 10:56am TAKE 2 PUFFS BY MOUTH EVERY 4 [...] 2017 1:00am June 08, 2020 12:56pm take 2 puff(s) by in halation every four hours for wheezing albuterol HFA 90 mcg/act inhaler Inhale 2 puffs every 4 (four) hours if needed for wheezing. Active take 2 puff(s) by in halation every four hours Ventolin HFA 90 mcg/actuation inhaler Inhale 2 puffs every 4 hours if needed. 0 Active take 1 puff(s) by in halation every [...] PUFFS NEEDED EVERY 4 HOURS Inhalation Active albuterol 0.833 mg/ml / ipratropium bromide 0.167 mg/ml inhalation solution (20 sources) Anticholinergic, beta2-Adrenergic Agonist Start: 11-07-2017 Ipratropium-Albuterol 0.5-2.5 (3) MG/3ML Inhalation Solution USE 1 VIAL PER HAND HELD NEBULIZER EVERY 4 HOURS Quantity: 180 Refills: 0 Ordered: 07-Nov-2017 DO Start : 07-Nov-2017 Active amitriptyline hydrochloride 75 mg oral tablet (20 sources) Tricyclic Antidepressant Start: 10-27-2023 take 75 mg by mouth every week Amitriptyline Active 75 MG PO every week October 27, 2023 12:00am Start: 03-05-2023 End: 06-16-2024 take 75 mg by mouth once daily Amitriptyline Discontin ued 75 MG PO Daily October 27, 2023 1:00am February 09, 2024 8:33am Start: 11-11-2021 End: 08-29-2022 take 50 mg by mouth once daily Amitriptyline Discontin ued 50 MG PO Daily November 11, 2021 1:00am August 29, 2022 9:48am Start: 10-28-2019 End: 03-01-2021 take 50 mg by mouth once daily at bedtime Amitriptyline Discontinued 50 MG PO Daily at bedtime October 28, 2019 1:00am March 01, 2021 2:00pm Apple Cider Vinegar (20 sources) Apple Cider Vine gar CAPS Quantity: 0 Refills: 0 Ordered: 24-May-2020 DO Active Apple Cider Vine gar CAPS Refills: 0 Active ascorbic acid 1000 mg oral tablet (20 sources) Vitamin C Start: 06-08-2020 End: 03-01-2021 take 1 tablet by mouth twice daily Ascorbic Acid (Vitamin C) (Vitamin C) 1,000 mg Tablet Discontinued 1000 MG PO Twice daily June 08, 2020 12:00am March 01, 2021 2:00pm Start: 05-23-2019 End: 06-08-2020 take 1 tablet by mouth twice daily Ascorbic Acid (Vitamin C) (Vitamin C) 500 mg Tablet Discontinued 500 MG PO Twice daily May 23, 2019 12:00am June 08, 2020 1:33pm Vitamin C Active Vitamin C TABS T [...] (Dr/Ec) Discontinued 81 MG PO Daily March 10, 2019 12:00am November 11, 2021 10:02am take 1 tablet by mouth once vicenta y Aspirin 81 81 MG 1 tablet Orally Once a day Active azelaic acid 150 mg/ml topic al foam (20 sources) Start: 10-31-2021 Finacea 15 % E xternal Foam Quantity: 50 Refills: 0 Ordered: 24-Jan-2022 DO Start : 31-Oct-2021 Complete Start: 10-07-2019 End: 03-01-2021 Azelaic Acid (Finacea) 15 % Gel Discontinued 1 APPLIC TOPICAL Twice daily October 07, 2019 1:00am March 01, 2021 2:00pm Start: 03-10-2019 End: 09-30-2019 Azelaic Acid (Finacea) 15 % Gel Discontinued 1 APPLIC TOPICAL Twice daily March 10, 2019 12:00am September 30, 2019 1:53pm azelaic acid (Az elex) 20 % cream [...] 10 MG PO Three times daily March 10, 2019 12:00am August 29, 2022 9:48am Black Cohosh (20 sources) Start: 05-23-2019 End: 09-24-2019 Start: 05-23-2019 End: 09-24-2019 60 actuat budesonide 0.16 mg/actuat / formoterol fumarate 0.0045 mg/actuat metered dose inhaler (1 source) Corticosteroid, beta2-Adrenergic Agonist Start: 02-04-2024 take 2 puff(s) by inhalation twice daily 2 puff, Inhalation, 2 TIMES DAILY RESP, First dose on Thu02/04/24 at 2000, Until Discontinued Substituted for mometasone-formoterol (DULERA). Calcium 600+D3 Plus Minerals 600-800 MG-UNIT Oral [...] mg / cholecalciferol 0.01 mg oral tablet (20 sources) Vitamin D Start: 03-10-2019 End: 08-29-2022 take 2 tablets by mouth once daily Calcium Carbonate-Vitamin D3 (Calcium 600 + D(3)) 600 mg(1,500mg) -400 unit Tablet Discontinued 2 TAB PO Daily March 10, 2019 12:00am August 29, 2022 9:48am take 2 tablets by [facility] in the morning Calcium Carb-Cholecalciferol 600-20 MG-M CG tablet Take 2 tablets by mouth in the morning. Active take 2 tablets by mouth once jenni ly calcium carbonate-vitamin D3 600 mg-20 mcg (800 unit) tablet Take 2 tablets by mouth once daily. 0 Active calcium chloride 0.001 meq/ml / glucose 50 mg/ml / potassium chloride 0.004 meq/ml / sodium chloride 0.103 meq/ml / sodium lactate 0.028 meq/ml injectable solution (1 source) Start: 02-04-2024 End: 02-05-2024 dextrose 5 % in lactated ringers infusion calcium chloride 0.0014 meq/ml / potassium chloride 0.004 meq/ml / sodium chloride 0.103 meq/ml / sodium lactate 0.028 meq/ml injectable solution (1 source) Start: 02-04-2024 End: 02-04-2024 lactated ringers IV soln infusion Ceramax CREA (2 sources) Ceramax CREA Refills: 0 Active chlorthalidone 50 mg oral tablet (20 sources) Thiazide-like Diuretic Start: 08-26-2017 End: 03-10-2019 take 50 mg by mouth once daily Chlorthalidone Discontinued 50 MG PO Daily August 26, 2017 1:00am March 10, 2019 2:54pm chondroitin sulfates 400 mg oral capsule (20 sources) Start: 05-23-2019 End: 10-07-2019 take 400 mg by mouth twice daily Chondroitin Sulfate A Sodium Discontinued 400 MG PO Twice daily May 23, 2019 12:00am October 07, 2019 8:57pm ciprofloxacin 500 mg oral tablet (20 sources) Quinolone Antimicrobial Start: 05-23-2019 End: 06-07-2019 take 1 tablet by mouth every twelve hours Ciprofloxacin Hcl (Cipro) 500 mg tablet Discontinued 500 MG PO Q12H 10 5 May 30, 2019 12:00am June 07, 2019 10:01am clindamycin 150 mg oral capsule (20 sources) Lincosamide Antibacterial Start: 12-31-2022 End: 12-31-2022 take 150 mg by mouth every six hours Clindamycin Hcl Discontinued 150 MG PO Every 6 hours December 31, 2022 12:00am December 31, 2022 9:54am Start: 12-31-2022 End: 10-27-2023 take 300 mg by mouth every six hours Clindamycin Hcl Discontinued 300 MG PO Q6H 28 7 December 31, 2022 12:00am October 27, 2023 9:26am Start: 10-29-2020 take 2 capsules by m outh every hour Clindamycin HCl - 300 MG Oral Capsule TAKE 2 CAPSULES 1 HOUR PRIOR TO DENTAL APPOINTMENT. Quantity: 2 Refills: 0 Ordered: 29-May-2021 Eugene Osuna MD Start : 29-May-2021 Active Start: 05-15-2019 End: 05-23-2019 take 150 mg by mouth every eight hours Clindamycin Hcl Discontinued 150 MG PO Q8H 21 7 May 15, 2019 12:00am May 23, 2019 11:49am clonazePAM 2 mg oral tablet (20 sources) Benzodiazepine Start: 08-26-2017 End: 06-08-2020 take 2 mg by mouth once daily at bedtime Clonazepam Discontinued 2 MG PO Daily at bedtime August 26, 2017 1:00am June 08, 2020 12:58pm Start: 12-25-2016 End: 03-01-2021 take 1 tablet by mouth once daily at bedtime Clonazepam (Klonopin) 2 mg tablet Discontinued 2 MG PO Daily at bedtime June 08, 2020 12:00am March 01, 2021 2:00pm TAKE 1 TABLET BY MOUTH EVERYDAY AT BEDTIME Start: 12-25-2016 clonazePAM 1 M G Oral Tablet Quantity: 45 Refills: 0 Start : 25-Dec-2016 Active take 1 tablet by adriana th every eight hours clonazePAM 2 MG 1 tablet at bedtime Orally three times a day Active cobamamide 0.1 mg / vitamin b12 5 mg sublingual tablet (20 sources) Vitamin B12 Start: 05-23-2019 End: 06-07-2019 Cyanocobalamin-Cobamamide (B 12) 5,000-100 mcg Lozenge Discontinued LOZENGE May 23, 2019 12:00am June 07, 2019 9:59am Start: 05-23-2019 End: 06-07-2019 Cyanocobalamin-Cobamamide (B 12) 5,000-100 mcg Lozenge Discontinued 1000 MG LOZENGE Daily May 23, 2019 12:00am June 07, 2019 11:49am doxycycline hyclate 100 mg oral capsule (20 sources) Tetracycline-class Drug Start: 03-11-2024 End: 06-16-2024 take 100 mg by mouth twice daily Doxycycline Hyclate Discontinued 100 MG PO Twice daily 14 March 11, 2024 12:00am June 16, 2024 10:10am Start: 02-02-2024 End: 02-07-2024 take 1 capsule by mouth twice daily doxycycline hyclate (VIBRAMYCIN) 100 MG capsule Take 1 capsule by mouth 2 times daily 0 02/02/2024 02/07/2024 Active Start: 08-29-2022 End: 12-17-2022 take 1 capsule by mouth twice daily Doxycycline Hyclate (Vibramycin) 100 mg capsule Discontinued 100 MG PO Twice daily August 29, 2022 1:00am December 17, 2022 11:15am Start: 06-09-2020 End: 03-01-2021 take 100 mg by mouth twice daily Doxycycline Hyclate Discontinued 100 MG PO Twice daily 03 07June 09, 2020 12:00am March 01, 2021 2:00pm Start: 07-26-2019 End: 08-16-2019 take 100 mg by mouth twice daily Doxycycline Hyclate Discontinued 100 MG PO Twice daily July 26, 2019 1:00am August 16, 2019 11:23am 7 days per dermatology DULoxetine 30 mg delayed release oral capsule (20 sources) Serotonin and Norepinephrine Reuptake Inhibitor Start: 03-05-2021 End: 08-29-2022 take 30 mg by mouth once daily Duloxetine Discontinued 30 MG PO Daily 14 March 05, 2021 12:00am August 29, 2022 9:45am Start: 12-25-2016 End: 03-01-2021 take 1 capsule by mouth twice daily Duloxetine (Cymbalta) 30 mg capsule,delayed release(DR/EC) Discontinued 30 MG PO Twice daily August 26, 2017 1:00am March 01, 2021 2:00pm Start: 12-25-2016 End: 08-29-2022 take 60 mg by mouth at bedtime Duloxetine Discontinued 60 MG PO Bedtime March 05, 2021 12:00am August 29, 2022 9:52am take 2 capsules by m outh in the morning, then take 2 capsules by mouth at bedtime DULoxetine (CYMBALTA) 30 mg capsule Take 2 capsules (60 mg total) by mouth in the morning and 2 capsules (60 mg total) before bedtime. Active Emollient Combination No.101 (Ceramax) cream (20 sources) Start: 06-07-2019 End: 09-30-2019 Emollient Combination [...] Combination No.60 (Levicyn Antipruritic Sg) spray gel (20 sources) Start: 05-15-2019 End: 09-30-2019 apply 1 [...] MG PO Daily 0 March 01, 2021 2:00pm November 11, 2021 10:02am Start: 03-10-2019 End: 03-01-2021 take 1 capsule by mouth twice daily Esomeprazole Magnesium (Nexium) 40 mg Capsule,Delayed Release(Dr/Ec) Discontinued 40 MG PO Twice daily March 10, 2019 12:00am March 01, 2021 2:00pm Start: 10-07-2017 take 2 capsules by m [...] by mouth twice a day. 0 Active ferrous sulfate 325 mg oral tablet (20 sources) Start: 06-08-2020 End: 03-01-2021 take 1 tablet by mouth once daily Ferrous Sulfate (Iron) 325 mg (65 mg iron) Tablet Discontinued 325 MG PO Daily June 08, 2020 12:00am March 01, 2021 2:00pm take 1 tablet by mouth once vicenta y ferrous sulfate 324 mg (65 mg elemental iron) EC tablet (delayed release) Take 1 tablet (65 mg) by mouth once daily. 0 Active Fish Oil CAPS (18 sources) Fish Oil CAPS TA KE DAILY DIRECTED Quantity: 0 Refills: 0 Ordered: 19-Apr-2020 DO Active folic acid 1 mg oral tablet (20 sources) Start: 11-11-2021 take 1 mg by mouth once daily Folic Acid Active 1 MG PO Daily November 11, 2021 12:00am Start: 03-02-2019 End: 10-27-2023 take 1 mg by mouth three times daily Folic Acid Discontinued 1 MG PO Three times daily November 11, 2021 1:00am October 27, 2023 9:34am folic acid 0.4 mg / vitamin b12 1 mg sublingual tablet (20 sources) Vitamin B12 Start: 10-07-2019 End: 10-28-2019 take 1000 mg under the tongue once daily Vitamin K51-Kryin Acid Discontinued 1000 MG SUBLINGUAL Daily October 07, 2019 1:00am October 28, 2019 2:41pm furosemide 20 mg oral tablet (20 sources) Loop Diuretic Start: 11-11-2021 End: 12-17-2022 take 20 mg by mouth once daily Furosemide Discontinued 20 MG PO Daily November 11, 2021 1:00am December 17, 2022 11:16am Start: 06-08-2020 End: 03-01-2021 take 1 tablet by mouth once daily in the morning Furosemide (Lasix) 20 mg tablet Discontinued 20 MG PO Every morning June 08, 2020 12:00am March 01, 2021 2:00pm TAKE 1 TABLET BY MOUTH EVERY DAY Start: 08-26-2017 End: 03-10-2019 take 40 mg by mouth once daily Furosemide Discontinued 40 MG PO Daily August 26, 2017 1:00am March 10, 2019 2:55pm Itywcumnmjd-Zrhqmeufp-Rlr C- Mn (Glucosamine Chondroitin Maxstr) 500-400 mg Capsule (20 sources) Start: 03-10-2019 End: 03-01-2021 take 1 tablet by mouth twice daily Jubgqgtyujz-Goufbhxlx-Vsu C-Mn (Glucosamine Chondroitin Maxstr) 500-400 mg Capsule Discontinued 1 TAB PO Twice daily March 09, 2019 11:00pm March 01, 2021 1:00pm Start: 03-10-2019 End: 03-01-2021 take 1 tablet by mouth twice daily Lsbjxugzupf-Isumkltqb-Ggk C-Mn (Glucosam ine Chondroitin Maxstr) 500-400 mg Capsule Discontinued 1 TAB PO Twice daily March 10, 2019 12:00am March 01, 2021 2:00pm ibuprofen 800 mg oral tablet (18 sources) Nonsteroidal Anti-inflammatory Drug Start: 08-29-2022 End: 06-16-2024 take 800 mg by mouth every six hours Ibuprofen Discontinued 800 MG PO Q6H 30 August 29, 2022 1:00am June 16, 2024 10:10am ipratropium bromide 0.042 mg/actuat metered dose nasal spray (20 sources) Anticholinergic Start: 02-04-2024 2 spray, Nasal, 2 TIMES DAILY, First dose on Julia 02/04/24 at 2100, Until Discontinued Start: 08-29-2022 Ipratropium Br omide Active 2 SPRAY INTRANASAL Twice daily August 29, 2022 1:00am Start: 06-08-2020 End: 03-01-2021 take 2 spray(s) nasal route twice daily Ipratropium [place] Discontinued 2 SPRAY INTRANASAL Twice daily June 08, 2020 12:00am March 01, 2021 2:00pm USE 2 SPRAYS IN EACH NOSTRIL TWICE A DAY Start: 05-22-2020 ipratropium (A TROVENT) 42 mcg (0.06 %) nasal spray 2 sprays in the morning and 2 sprays before bedtime. 05/22/2020 Active Start: 05-22-2020 ipratropium (A TROVENT) 0.06 % nasal spray 2 sprays 2 times daily 0 05/22/2020 Active Start: 03-10-2019 End: 06-08-2020 Ipratropium [place] Disconti nued 2.5 ML INHALATION every 6 to 8 hours March 10, 2019 12:00am June 08, 2020 1:09pm take 2 spray(s) nasa l route in the morning ipratropium (Atrovent) 0.06 % nasal spray Administer 2 sprays into each nostril in the morning and 2 sprays in the evening. Active ipratropium (Atr ovent) 42 mcg (0.06 %) nasal spray Administer into each nostril. 0 Active take 2 spray(s) nasa l route three times daily Ipratropium [place] 0.06 % 2 sprays in each nostril Nasally Three times a day Active take 2 spray(s) nasa l route three times daily Ipratropium [place] 0.06 % 2 sprays in each nostril Nasally Three times a day Active Ipratropium Brom mandie 0.06 % Nasal Solution USE DIRECTED Quantity: 0 Refills: 0 Ordered: 19-Apr-2020 DO Active Ipratropium Brom mnadie 0.06 % Nasal Solution USE DIRECTED Quantity: 0 Refills: 0 Ordered: 19-Apr-2020 DO Active Ipratropium Brom mandie 0.06 % Nasal Solution USE DIRECTED Refills: 0 Active Iron (18 sources) Iron TABS TAKE 6 5MG DAILY DIRECTED Quantity: 0 Refills: 0 Ordered: 19-Apr-2020 DO Active ketoconazole 20 mg/ml medicated shampoo (20 sources) Azole Antifungal Start: 06-08-20 End: 03-01-20 21 Ketoconazole (Nizoral) 2 % shampoo Discontinued 1 APPLIC TOPICAL 3 Times a week June 08, 2020 12:00am March 01, 2021 2:00pm APPLY TO SCALP 2 TO 3 TIMES PER WEEK. LEAVE ON 3 TO 5 MINUTES THEN RINSE OFF. ketorolac tromethamine 10 mg oral tablet (20 sources) Nonsteroidal Anti-inflammatory Drug, Cyclooxygenase Inhibitor Start: 10-21-19 End: 03-01-20 take 10 mg by mouth every six hours Ketorolac Discontinued 10 MG PO Q6H 10 04October 21, 2020 1:00am March 01, 2021 2:00pm Klor-Con M20 TBCR (14 sources) Klor-Con M20 TBC R Quantity: 0 Refills: 0 Ordered: 24-Jun-2021 DO Active lamoTRIgine 200 mg oral tablet (20 sources) Mood Stabilizer, Anti-epileptic Agent Start: 12-24-19 End: 12-18-19 23 take 1 tablet by mouth once daily at bedtime Lamotrigine (Lamictal) 200 mg tablet Discontinued 200 MG PO Daily at bedtime August 26, 2017 1:00am December 17, 2022 11:16am TAKE ONE TABLET BY MOUTH DAILY Levicyn Dermal [place] SOLN (2 sources) Levicyn Dermal [place] SOLN Refills: 0 Active levoFLOXacin 750 mg oral tablet (14 sources) Quinolone Antimicrobial Start: 01-10-20 End: 10-27-19 24 take 750 mg by mouth once daily Levofloxacin Discontinued 750 MG PO Daily 7 January 09, 2023 12:00am October 27, 2023 9:20am linseed oil 1000 mg oral capsule (20 sources) Start: 06-08-20 End: 03-01-20 21 take 1000 mg by mouth once daily Flaxseed Oil Discontinued 1000 MG PO Daily June 08, 2020 12:00am March 01, 2021 2:00pm lurasidone hydrochloride 20 mg oral tablet (20 sources) Atypical Antipsychotic Start: 08-26-20 End: 03-10-20 19 take 1 tablet by mouth once daily Lurasidone (Latuda) 20 mg tablet Discontinued 2 TAB PO Daily August 26, 2017 1:00am March 10, 2019 2:56pm Magnesium (20 sources) Start: 03-10-20 End: 06-08-20 take 500 mg by mouth once daily Magnesium Discontinued 500 MG PO Daily March 09, 2019 11:00pm June 08, 2020 12:35pm Start: 03-10-2019 End: 06-08-2020 take 500 mg by mouth once daily Magnesium Discontinued 500 MG PO Daily March 10, 2019 12:00am June 08, 2020 1:35pm take 1 tablet by adriana th once daily Magnesium 500 MG 1 tablet with a meal Orally Once a day Active magnesium oxide 400 mg oral tablet (20 sources) Start: 06-08-2020 End: 03-01-2021 take 400 mg by mouth once daily Magnesium Oxide Discontinued 400 MG PO Daily June 08, 2020 12:00am March 01, 2021 2:00pm magnesium oxide 400 mg magnesium capsule Take 1 capsule (400 mg) by mouth. 0 Active Magnesium Oxide 400 MG CAPS TAKE DIRECTED. Quantity: 0 Refills: 0 Ordered: 19-Apr-2020 DO Active metFORMIN hydrochloride 500 mg oral tablet (20 sources) Biguanide Start: 08-26-2017 End: 03-10-2019 take 500 mg by mouth twice daily Metformin Discontinued 500 MG PO Twice daily August 26, 2017 1:00am March 10, 2019 2:56pm methylphenidate hydrochloride 10 mg oral tablet (20 sources) Central Nervous System Stimulant Start: 02-09-2024 End: 06-07-2024 take 1 tablet by mouth in the morning, then take 2 tablets by mouth once daily in the evening Methylphenidate Hcl Discontinued 0 PO .COMPLEX 90 February 09, 2024 March 08, 2024 5:28pm 1 tablet in morning and 2 tablets at 2 pm orally daily; Start: 01-22-2024 End: 02-09-2024 take 10 mg by mouth once daily in the morning Methylphenidate Hcl Discontinued 10 MG PO Every morning January 22, 2024 12:00am February 09, 2024 8:33am Start: 11-30-2023 End: 01-22-2024 take 1 tablet by mouth three times daily in the morning, then take 2 tablets by mouth in the evening Methylphenidate Hcl Discontinued 10 MG PO Three times daily 90 December 08, 2023 January 04, 2024 3:08pm Patient can take 1 tab in am 2 tab in pm Start: 11-05-2023 End: 11-05-2023 take 10 mg by mouth three times daily Methylphenidate Hcl Discontinued 10 MG PO Three times daily 90 November 05, 2023 November 05, 2023 12:19pm Start: 11-05-2023 End: 11-05-2023 take 10 mg by mouth twice daily Methylphenidate Hcl Discontinued 10 MG PO Twice daily 90 November 05, 2023 November 05, 2023 10:54am Start: 11-05-2023 End: 11-05-2023 take 10 mg by mouth twice daily Methylphenidate Hcl Discontinued 10 MG PO Twice daily 90 November 05, 2023 November 05, 2023 10:54am Start: 11-05-2023 End: 11-05-2023 take 10 mg by mouth twice daily Methylphenidate Hcl Discontinued 10 MG PO Twice daily 90 November 05, 2023 November 05, 2023 10:54am Start: 11-05-2023 End: 11-05-2023 take 10 mg by mouth twice daily Methylphenidate Hcl Discontinued 10 MG PO Twice daily 90 November 05, 2023 November 05, 2023 10:54am Start: 11-05-2023 End: 11-05-2023 take 10 mg by mouth twice daily Methylphenidate Hcl Discontinued 10 MG PO Twice daily 90 November 05, 2023 November 05, 2023 10:54am Start: 11-05-2023 End: 11-05-2023 take 10 mg by mouth twice daily Methylphenidate Hcl Discontinued 10 MG PO Twice daily 90 November 05, 2023 November 05, 2023 10:54am Start: 11-05-2023 End: 11-05-2023 take 10 mg by mouth twice daily Methylphenidate Hcl Discontinued 10 MG PO Twice daily 90 November 05, 2023 November 05, 2023 10:54am Start: 11-05-2023 End: 11-05-2023 take 10 mg by mouth twice daily Methylphenidate Hcl Discontinued 10 MG PO Twice daily 90 November 05, 2023 November 05, 2023 10:54am Start: 11-05-2023 End: 11-05-2023 take 10 mg by mouth twice daily Methylphenidate Hcl Discontinued 10 MG PO Twice daily 90 November 05, 2023 November 05, 2023 10:54am Start: 11-05-2023 End: 11-05-2023 take 10 mg by mouth twice daily Methylphenidate Hcl Discontinued 10 MG PO Twice daily 90 November 05, 2023 November 05, 2023 10:54am Start: 11-05-2023 End: 11-05-2023 take 10 mg by mouth twice daily Methylphenidate Hcl Discontinued 10 MG PO Twice daily 90 November 05, 2023 November 05, 2023 10:54am Start: 12-17-2022 End: 11-05-2023 take 20 mg by mouth once daily at bedtime Methylphenidate Hcl Discontinued 20 MG PO Daily at bedtime December 17, 2022 12:00am November 05, 2023 10:52am Start: 11-11-2021 End: 11-05-2023 take 10 mg by mouth once daily in the morning Methylphenidate Hcl Discontinued 10 MG PO Every morning November 11, 2021 1:00am November 05, 2023 10:33am Start: 08-22-2021 End: 11-30-2023 take 10 mg by mouth three times daily Methylphenidate Hcl Discontinued 10 MG PO Three times daily 90 November 05, 2023 November 30, 2023 2:44pm Patient can take Start: 06-18-2021 End: 11-05-2023 Methylphenidate Hcl Disconti nued 10 MG PO Twice daily November 05, 2023 10:31am November 05, 2023 10:36am TAKE 1 TABLET BY MOUTH IN THE MORNING AND 1 - 2 TABLETS IN THE AFTERNOON NEEDED Ritalin 10 MG Or al Tablet Quantity: 0 Refills: 0 Ordered: 24-Jun-2021 DO Active Methylphenidate Hcl (Aptensi o Xr) 20 mg cap,ER sprinkle,biphasic 40-60 (7 sources) Start: 01-22-2024 End: 02-09-2024 Methylphenidate Hcl (Aptensi o Xr) 20 mg cap,ER sprinkle,biphasic 40-60 Discontinued 20 MG PO Daily at bedtime January 22, 2024 12:00am February 09, 2024 8:24am Start: 01-22-2024 Methylphenidat e Hcl (Aptensio Xr) 20 mg cap,ER sprinkle,biphasic 40-60 Active 20 MG PO Daily at bedtime January 22, 2024 12:00am metOLazone 10 mg oral tablet (20 sources) Thiazide-like Diuretic Start: 10-07-2019 End: 06-08-2020 take 10 mg by mouth once daily Metolazone Discontinued 10 MG PO Daily October 07, 2019 1:00am June 08, 2020 1:34pm Start: 03-10-2019 End: 06-07-2019 take 5 mg by mouth once daily Metolazone Discontinued 5 MG PO Daily March 10, 2019 12:00am June 07, 2019 11:48am Start: 07-20-2018 take 1 tablet by adriana th twice daily metOLazone 2.5 MG Oral Tablet take 1 tab twice daily Refills: 0 Start : 20-Jul-2018 Active metroNIDAZOLE 500 mg oral tablet (20 sources) Nitroimidazole Antimicrobial Start: 12-31-2022 End: 10-27-2023 take 500 mg by mouth twice daily Metronidazole Discontinued 500 MG PO Twice daily 14 7 January 09, 2023 12:00am October 27, 2023 9:27am modafinil 200 mg oral tablet (20 sources) Sympathomimetic-like Agent Start: 06-08-2020 End: 03-01-2021 take 2 tablets by mouth once daily in the morning Modafinil (Provigil) 200 mg tablet Discontinued 400 MG PO Every morning June 08, 2020 12:00am March 01, 2021 2:00pm TAKE 2 TABLETS BY MOUTH EVERY MORNING [...] TABLET DAILY. Refills: 0 Active Multivitamin preparation (20 sources) Start: 06-07-2019 End: 03-01-2021 take 1 tablet by mouth once daily Multivitamin Discontinued 1 TAB PO Daily June 06, 2019 11:00pm March 01, 2021 1:00pm Start: 06-07-2019 End: 03-01-2021 take 1 tablet by mouth once daily Multivitamin Discontinued 1 TAB PO Daily June 07, 2019 12:00am March 01, 2021 2:00pm Multivitamin Act jem naproxen 500 mg oral tablet (14 sources) Nonsteroidal Anti-inflammatory Drug Start: 01-09-2023 End: 10-27-2023 take 1 tablet by mouth twice daily Naproxen (Naprosyn) 500 mg tablet Discontinued 500 MG PO Twice daily 14 January 09, 2023 12:00am October 27, 2023 9:34am nitrofurantoin, macrocrystals 25 mg / nitrofurantoin, monohydrate 75 mg oral capsule (20 sources) Nitrofuran Antibacterial Start: 10-20-2021 End: 11-11-2021 take 1 capsule by mouth twice daily at mealtime Nitrofurantoin Monohyd/M-Cryst (Macrobid) 100 mg capsule Discontinued 100 MG PO Twice daily 14 October 20, 2021 1:00am November 11, 2021 10:02am must administer with a meal/food Start: 11-08-2020 End: 03-01-2021 take 1 capsule by mouth twice daily at mealtime Nitrofurantoin Monohyd/M-Cryst (Macrobid) 100 mg capsule Discontinued 100 MG PO Twice daily 14 November 08, 2020 1:00am March 01, 2021 2:00pm must administer with a meal/food Start: 02-27-2020 End: 03-08-2020 take 1 capsule by mouth twice daily at mealtime Nitrofurantoin Monohyd/M-Cryst (Macrobid) 100 mg capsule Discontinued 100 MG PO Twice daily 10 February 27, 2020 12:00am March 08, 2020 2:58pm must administer with a meal/food [place] 6-Pia-Iqi-Fish Oil (Fish Oil) 1,200 ([id number]) mg Capsule (20 sources) Start: 06-08-2020 End: 03-01-2021 take 1 capsule by mouth once daily [place] 6-Pns-Pbk-Fish Oil (Fish Oil) 1,200 (144-216) mg Capsule Discontinued 1 CAP PO Daily June 07, 2020 11:00pm March 01, 2021 1:00pm Start: 06-08-2020 End: 03-01-2021 take 1 capsule by mouth once daily [place] 0-Kxo-Fax-Fish Oil (Fish Oil) 1,200 (144-216) mg Capsule Discontinued 1 CAP PO Daily June 08, 2020 12:00am March 01, 2021 2:00pm Fish Oil CAPS (2 sources) Fish Oil CAPS TA KE DAILY DIRECTED Refills: 0 Active oxyCODONE hydrochloride 5 mg oral tablet (20 sources) Opioid Agonist Start: 03-11-2024 End: 06-16-2024 take 5-10 mg by mouth every six hours Oxycodone Discontinued 5 - 10 MG PO Every 6 hours 25 March 11, 2024 June 16, 2024 10:11am Start: 02-05-2024 End: 02-12-2024 take 1 tablet by mouth every six hours as needed for pain oxyCODONE (ROXICODONE) 5 MG immediate release tablet Indications: Status post Otf fundoplication Take 1 tablet by mouth every 6 hours as needed for Pain for up to 7 days. Max Daily Amount: 20 mg 25 tablet 0 02/05/2024 02/12/2024 Active Start: 01-09-2023 End: 10-27-2023 take 5 mg by mouth once daily Oxycodone Discontinued 5 MG PO Daily 4 January 09, 2023 October 27, 2023 9:35am Start: 09-10-2022 take 1 tablet by adriana th every eight hours oxyCODONE HCl 5 MG 1 tablet as needed Orally every 8 hrs for 7 days Aug, Active Start: 01-19-2021 End: 03-01-2021 take 5 mg by mouth every four to six hours Oxycodone Discontinued 5 MG PO EVERY 4-6 HOURS 5 2 January 19, 2021 March 01, 2021 2:00pm Start: 05-14-2020 take 1 tablet by adriana th every six hours as needed for pain oxyCODONE HCl - 5 MG Oral Tablet Take one tablet every 6 hours as needed for pain. Quantity: 24 Refills: 0 Tree ALONSOMIRELLAMarianna Start : 14-May-2020 Active pantoprazole 40 mg delayed release oral tablet (20 sources) Proton Pump Inhibitor Start: 11-30-2023 End: 12-11-2023 take 1 tablet by mouth once daily Pantoprazole Discontinued 40 MG PO Daily November 30, 2023 12:00am December 11, 2023 1:42pm FreeTextSi tablet Orally Once a day; Note: Source Status: Taking; Provider: Lauri Nicholson ( ) Start: 08-15-2020 End: 10-27-2023 take 40 mg by mouth twice daily Pantoprazole Discontinued 40 MG PO Twice daily November 11, 2021 1:00am October 27, 2023 9:21am Start: 08-26-2017 End: 03-10-2019 take 40 mg by mouth once daily Pantoprazole Discontinu ed 40 MG PO Daily August 26, 2017 1:00am March 10, 2019 2:57pm pantoprazole (Pr otoNix) 40 MG EC tablet every 12 (twelve) hours. Active Pantoprazole Sod ium 40 MG Oral Tablet Delayed Release Quantity: 0 Refills: 0 Ordered: 27-Aug-2020 DO Active Plenvu 140 GM Oral Solution Reconstituted (1 source) Start: 10-28-2021 Plenvu 140 GM Oral Solution Reconstituted Quantity: 3 Refills: 0 Ordered: 28-Oct-2021 DO Start : 28-Oct-2021 Complete polyethylene glycol 3350 [id number] mg powder for oral solution (14 sources) Osmotic Laxative Start: 01-09-2023 End: 10-27-2023 Polyethylene Glycol 3350 (Miralax) 17 gram/dose powder Discontinued 4 GM PO Daily 10 04January 09, 2023 3:42pm October 27, 2023 9:35am pravastatin sodium 40 mg oral tablet (20 sources) HMG-CoA Reductase Inhibitor Start: 07-20-2018 End: 11-08-2020 take 1 tablet by mouth once daily at bedtime Pravastatin (Pravachol) 40 mg Tablet Discontinued 40 MG PO Daily at bedtime March 10, 2019 12:00am November 08, 2020 6:14pm predniSONE 50 mg oral tablet (20 sources) Start: 02-27-2020 End: 03-08-2020 take 50 mg by mouth once daily Prednisone Discontinued 50 MG PO Daily 5 February 27, 2020 12:00am March 08, 2020 2:58pm Start: 06-07-2019 End: 06-15-2019 take 50 mg by mouth once daily Prednisone Discontinued 50 MG PO Daily 5 June 07, 2019 12:00am June 15, 2019 11:49am promethazine hydrochloride 25 mg oral tablet (20 sources) Phenothiazine Start: 07-25-2020 End: 10-27-2023 take 25 mg by mouth four times daily Promethazine Discontinued 25 MG PO Four times daily August 29, 2022 1:00am October 27, 2023 9:35am Start: 10-07-2019 End: 06-08-2020 Promethazine Discontinued [address] Q6H October 07, 2019 1:00am June 08, 2020 1:05pm Do not take with other promethazine/phenergan Start: 09-29-2019 End: 12-11-2023 take 25 mg by mouth every six hours Promethazine Discontinued 25 MG PO Q6H November 29, 2023 12:00am December 11, 2023 1:43pm Promethazine HCl - 25 MG Oral Tablet Quantity: 0 Refills: 0 Ordered: 24-May-2020 DO Active Psyllium Husk (Metamucil) 0. 4 gram capsule (14 sources) Start: 01-09-2023 End: 10-27-2023 Psyllium Husk (Metamucil) 0. 4 gram capsule Discontinued 0.4 GM PO Daily January 09, 2023 12:00am October 27, 2023 9:35am Start: 01-09-2023 End: 10-27-2023 Psyllium Husk (Metamucil) 0. 4 gram capsule Discontinued 0.4 GM PO Daily January 08, 2023 11:00pm October 27, 2023 8:35am Start: 01-09-2023 Psyllium Husk (Metamucil) 0.4 gram capsule Active 0.4 GM PO Daily January 08, 2023 11:00pm Start: 01-09-2023 Psyllium Husk (Metamucil) 0.4 gram capsule Active 0.4 GM PO Daily January 09, 2023 12:00am topiramate 100 mg oral table t (20 sources) Start: 01-14-2022 Topiramate 100 MG Oral Tablet Quantity: 30 Refills: 0 Ordered: 08-Feb-2022 DO Start : 14-Jan-2022 Complete Start: 03-05-2021 take 100 mg by mouth once daily at bedtime Topiramate Active 100 MG PO Daily at bedtime March 05, 2021 12:00am Start: 05-15-2019 End: 03-01-2021 take 1 tablet by mouth at bedtime Topiramate (Topamax) 100 mg Tablet Discontinued 100 MG PO Bedtime May 15, 2019 12:00am March 01, 2021 2:00pm Start: 07-20-2018 End: 11-11-2021 take 50 mg by mouth once daily Topiramate Discontinued 50 MG PO Daily March 05, 2021 12:00am November 11, 2021 10:03am Start: 07-20-2018 take 1 tablet by adriana th twice daily Topamax 50 MG Oral Tablet TAKE 1 TABLET TWICE DAILY. Refills: 0 Start : 20-Jul-2018 Active take 2 tablets by mo [facility] once daily topiramate (TOPAMAX) 50 mg tablet Take 2 tablets (100 mg total) by mouth nightly. Active 24 hr divalproex sodium 250 mg extended release oral tablet (20 sources) Mood Stabilizer, Anti-epileptic Agent Start: 08-29-2022 End: 02-04-2024 take 250 mg by mouth once daily Divalproex Discontinued 250 MG PO Daily August 29, 2022 1:00am October 27, 2023 9:34am take 1 tablet by adriana th every twenty-four hours Divalproex Sodium 250 MG 1 tablet Orally Once a day Active varenicline 1 mg oral tablet (20 sources) Partial Cholinergic Nicotinic Agonist Start: 06-08-2020 End: 03-01-2021 take 1 tablet by mouth twice daily Varenicline (Chantix Continuing Month Box) 1 mg tablet Discontinued 1 MG PO Twice daily June 08, 2020 12:00am March 01, 2021 2:00pm TAKE ONE TABLET BY MOUTH TWICE DAILY DIRECED Chantix TABS NADIYA E 1 TABLET TWICE DAILY. Quantity: 0 Refills: 0 Ordered: 19-Apr-2020 DO Active Chantix TABS NADIYA E 1 TABLET TWICE DAILY. Refills: 0 Active Vitamin B Complex (Vitamins B Complex) Capsule (20 sources) Start: 05-23-2019 End: 09-24-2019 take 1 [...] (Super B Maxi Complex) 0.4 mg Tablet (20 sources) Start: 06-08-2020 End: 03-01-2021 take 1 [...] TAB PO Daily June 08, 2020 12:00am March 01, 2021 2:00pm vitamin b12 1 mg oral tablet (20 sources) Vitamin B12 Start: 10-28-2019 End: 03-01-2021 take 1 tablet by mouth once daily Cyanocobalamin (Vitamin B-12) (Vitamin B-12) 1,000 mcg Tablet Discontinued 1000 MCG PO Daily October 28, 2019 1:00am March 01, 2021 2:00pm Start: 09-24-2019 End: 09-30-2019 take 1 tablet by mouth once daily Cyanocobalamin (Vitamin B-12) (Vitamin B-12) 1,000 mcg Tablet Discontinued 1000 MCG PO Daily September 24, 2019 1:00am September 30, 2019 1:55pm Vitamin B12 Acti ve Vitamin C TABS (18 sources) Vitamin C TABS T ARTURO DAILY DIRECTED Quantity: 0 Refills: 0 Ordered: 19-Apr-2020 DO Active Vitamin D3 TABS (18 sources) Vitamin D3 TABS TAKE DIRECTED. Quantity: 0 Refills: 0 Ordered: 19-Apr-2020 DO Active zonisamide 50 mg oral capsule (20 sources) Anti-epileptic Agent Start: 03-08-2020 End: 06-28-2020 take 100 mg by mouth once daily at bedtime Zonisamide Discontinued 100 MG PO Daily at bedtime March 08, 2020 12:00am June 28, 2020 9:33am take 2 capsules by m outh once daily at bedtime zonisamide (Zonegran) 50 mg capsule Take 2 capsules (100 mg) by mouth once daily at bedtime. 0 Active Problems Active Problems Problem Classification Problem Date Documented Da te Episodic/Chronic Abdominal pain (20 sources) Abdominal pain; Translations: [Unspecified abdominal pain] Onset: 4 10-20-2021 Episodic Anxiety disorders (3 sources) Anxiety; Translations: [Anxiety disorder, unspecified] Onset: 3 07-19-2023 Chronic Aspiration pneumonitis; food/vomitus (20 sources) Aspiration pneumonia; Translations: [Pneumonitis due to inhalation of food and vomit] 02-27-2021 Episodic Asthma (20 sources) Cough variant asthma; Translations: [Cough variant asthma] Onset: 1 Resolved: 2 Chronic Cancer of cervix (2 sources) Atypical squamous cells of undetermined significance on cervical Papanicolaou smear; Translations: [Atypical squamous cells of undetermined significance on cytologic smear of cervix (ASC-US)] 05-25-2024 Episodic Chronic ulcer of skin (20 sources) Ulcer of lower extremity; Translations: [Non-pressure chronic ulcer of unspecified part of left lower leg with unspecified severity] 07-11-2020 Chronic Conditions associated with dizziness or vertigo (20 sources) Dizziness and giddiness; Translations: [Dizziness and giddiness] Onset: 3 11-08-2020 Episodic Diabetes mellitus without complication (20 sources) Diabetes mellitus; Translations: [Type 2 diabetes mellitus without complications] 05-23-2019 Chronic Disorders of lipid metabolism (4 sources) Hypercholesterolemia; Translations: [Pure hypercholesterolemia, unspecified] Onset: 3 07-19-2023 Chronic Disorders of teeth and jaw (1 source) Chronic gingivitis, plaque induced; Translations: [CHRONIC GINGIVITIS PLAQUE INDUCED] Onset: 2 Chronic Diverticulosis and diverticulitis (20 sources) Diverticulitis of gastrointestinal tract; Translations: [Diverticulitis] Onset: 3 01-09-2023 Chronic E Codes: Fall (5 sources) Fall on same level from slipping, tripping or stumbling ; Translations: [Fall on same level from slipping, tripping and stumbling without subsequent striking against object, initial encounter] 03-11-2024 Episodic Esophageal disorders (20 sources) Diffuse spasm of esophagus; Translations: [Dyskinesia of esophagus] Onset: 7 Resolved: 2 Chronic Esophageal disorders (1 source) Esophageal disorders; Translations: [Gastro-esophageal reflux disease without esophagitis] Onset: 4 Fluid and electrolyte disorders (20 sources) Hypokalemia; Translations: [Hypokalemia] 10-07-2019 Episodic Fracture of lower limb (1 source) Displaced fracture of medial condyle of right tibia, initial encounter for closed fracture Episodic Gastritis and duodenitis (20 sources) Gastritis; Translations: [Gastritis, unspecified, without bleeding] Onset: 2 Resolved: 2 Episodic Gastroduodenal ulcer (except hemorrhage) (3 sources) Peptic ulcer; Translations: [Peptic ulcer, site unspecified, unspecified as acute or chronic, without hemorrhage or perforation] Onset: 3 07-19-2023 Chronic Gout and other crystal arthropathies (1 source) Other chondrocalcinosis, right knee; Translations: [Other chondrocalcinosis, right knee] Onset: 4 Chronic Headache; including migraine (20 sources) Cyclical vomiting syndrome; Translations: [Cyclical vomiting, in migraine, not intractable] Onset: 2 Resolved: 2 Chronic Joint disorders and dislocations; trauma-related (20 sources) Knee locking; Translations: [Patellofemoral stress syndrome] Onset: 3 07-19-2023 Chronic Miscellaneous mental health disorders (20 sources) Mental disorder; Translations: [Mental disorder, not otherwise specified] Chronic Mood disorders (20 sources) Bipolar I disorder; Translations: [Bipolar disorder, unspecified] Onset: 4 03-01-2021 Chronic Nonmalignant breast conditions (20 sources) Large breast; Translations: [Hypertrophy of breast] Episodic Osteoarthritis (20 sources) Bilateral primary osteoarthritis of knee; Translations: [Arthritis of shoulder region joint] Onset: 3 07-19-2023 Chronic Osteoporosis (20 sources) Osteoporosis; Translations: [Age-related osteoporosis without current pathological fracture] 02-04-2024 Chronic Other acquired deformities (16 sources) Acquired scoliosis; Translations: [Disorder of bone and cartilage, unspecified] Chronic Other acquired deformities (5 sources) Other secondary scoliosis, site unspecified; Translations: [Degenerative scoliosis in adult patient] Onset: 3 07-19-2023 Chronic Other aftercare (20 sources) Surgical follow-up; Translations: [Follow-up examination, following other surgery] Episodic Other aftercare (19 sources) Antibiotic prophylaxis indicated; Translations: [Long-term (current) use of antibiotics] Episodic Other aftercare (1 source) Other long term care administrator (current) drug therapy; Translations: [OTH PENITENTIARY CURRENT DRUG THERAPY] Onset: 3 Episodic Other and unspecified benign neoplasm (20 sources) History of polyp of colon; Translations: [Personal history of colonic polyps] 11-11-2021 Episodic Other and unspecified benign neoplasm (9 sources) Carcinoid tumor; Translations: [Benign carcinoid tumor of unspecified site] 11-06-2023 Episodic Other and unspecified benign neoplasm (2 sources) Carcinoid tumor of stomach; 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] 12-09-2023 Episodic Other and unspecified benign neoplasm (2 sources) Benign carcinoid tumor of the stomach; 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] Onset: 4 Episodic Other and unspecified benign neoplasm (2 sources) Benign carcinoid tumor of unspecified site; Translations: [Carcinoid tumor] 11-06-2023 Episodic Other circulatory disease (18 sources) H/O: hypertension; Translations: [Personal history of other diseases of circulatory system] Episodic Other connective tissue disease (3 sources) H/O: artificial joint; Translations: [Status post replacement of right shoulder joint] Chronic Other connective tissue disease (10 sources) History of right shoulder arthroplasty; Translations: [Shoulder joint replacement] Chronic Other connective tissue disease (10 sources) Presence of right artificial shoulder joint; Translations: [Presence of right artificial shoulder joint] Onset: 2 Chronic Other connective tissue disease (20 sources) Foot pain; Translations: [Pain in limb] Episodic Other connective tissue disease (19 sources) History of cervical spine fusion; Translations: [Arthrodesis status] Episodic Other connective tissue disease (1 source) Disorder of lower extremity; Translations: [Other muscle spasm] Onset: 3 07-19-2023 Episodic Other disorders of [...] 1; Translations: [Mild cervical dysplasia] Episodic Other female genital disorders (2 sources) History of abnormal cervical Papanicolaou smear ; Translations: [Personal history of other diseases of the female genital tract] 05-25-2024 Episodic Other gastrointestinal disorders (20 sources) Irritable bowel syndrome; Translations: [Irritable bowel syndrome without diarrhea] Chronic Other gastrointestinal disorders (1 source) Irritable bowel syndrome without diarrhea Onset: 2 Resolved: 2 Chronic Other gastrointestinal disorders (20 sources) Dysphagia; Translations: [Dysphagia, unspecified] Onset: 0 10-13-2019 Episodic Other gastrointestinal disorders (1 source) Heartburn Episodic Other gastrointestinal disorders (2 sources) Dysphagia, unspecified; Translations: [Dysphagia, unspecified] 06-16-2024 Episodic Other hereditary and degenerative nervous system [...] Other hereditary and degenerative nervous system conditions (15 sources) Myoclonus; Translations: [Myoclonus] Onset: 3 Chronic Other hereditary and degenerative nervous system conditions (1 source) Myoclonus; Translations: [Myoclonus] Onset: 3 Chronic Other infections; including parasitic (14 sources) Disorder due to infection; Translations: [Unspecified infectious disease] 05-23-2019 Episodic Other lower respiratory disease (20 sources) Cough; Translations: [Cough] Episodic Other lower respiratory disease (20 sources) Nodule of lung; Translations: [Solitary pulmonary nodule] 12-08-2023 Episodic Other lower respiratory disease (8 sources) Solitary pulmonary nodule; Translations: [Pulmonary nodule R91.1] Onset: 1 Resolved: 2 Episodic Other nervous system disorders (20 sources) Polyneuropathy; Translations: [Unspecified hereditary and idiopathic peripheral neuropathy] Onset: 3 07-19-2023 Chronic Other nervous system disorders (20 sources) Narcolepsy; Translations: [Narcolepsy without cataplexy] Onset: 3 07-19-2023 Chronic Other nervous system disorders (20 sources) Chronic pain; Translations: [Other chronic pain] Chronic Other nervous system disorders (20 sources) Narcolepsy without cataplexy; Translations: [Narcolepsy, without cataplexy] Onset: 1 Resolved: 2 Chronic Other nervous system disorders (20 sources) Acute postoperative pain; Translations: [Other acute postoperative pain] 12-31-2022 Episodic Other nervous system disorders (20 sources) Skin sensation disturbance; Translations: [Paresthesia of skin] Episodic Other nervous system disorders (14 sources) Postoperative pain ; Translations: [Other acute postprocedural pain] 03-24-2019 Episodic Other nervous system disorders (1 source) Trigeminal neuralgia; Translations: [TRIGEMINAL NEURALGIA] Onset: 3 Episodic Other nervous system disorders (2 sources) Tremor, unspecified; Translations: [Tremor, unspecified] Onset: 3 Episodic Other non-traumatic joint disorders (1 source) [...] pain] 01-19-2021 Episodic Other non-traumatic joint disorders (14 sources) Hip pain; Translations: [Pain in right hip] 06-07-2019 Episodic Other non-traumatic joint disorders (6 sources) Pain in right shoulder; Translations: [Acute pain of right shoulder] Onset: 3 Episodic Other nutritional; endocrine; and metabolic disorders (12 sources) Body mass index 40+ - severely obese; Translations: [Body mass index (BMI) 45.0-49.9, adult] Chronic Other nutritional; endocrine; and metabolic disorders (20 sources) Obesity; Translations: [Obesity, unspecified] 06-14-2020 Chronic Other skin disorders (19 sources) Skin symptom; Translations: [Other symptoms involving skin and integumentary tissues] Episodic Residual codes; unclassified (20 sources) Obstructive sleep apnea syndrome; Translations: [Obstructive sleep apnea (adult) (pediatric)] Chronic Residual codes; unclassified (1 source) Chronic back pain ; Translations: [Back pain, chronic] Episodic Residual codes; unclassified (10 sources) History of fundoplication; Translations: [Other specified postprocedural states] Onset: 4 02-05-2024 Episodic Residual codes; unclassified (3 sources) Other specified postprocedural states; Translations: [Personal history of surgery to other organs] Onset: 4 Episodic Respiratory failure; insufficiency; arrest (adult) (20 sources) Acute respiratory failure; Translations: [Acute respiratory failure with hypoxia] 02-26-2021 Episodic Skin and subcutaneous tissue infections (20 sources) Cellulitis; Translations: [Cellulitis, unspecified] 06-08-2020 Episodic Spondylosis; intervertebral disc disorders; other back problems (20 sources) Cervical spondylosis; Translations: [Cervical radiculopathy] Onset: 4 12-25-2019 Chronic Spondylosis; intervertebral disc disorders; other back problems (20 sources) Chronic neck pain; Translations: [Cervical radiculopathy] Onset: 8 10-21-2020 Episodic Sprains and strains (20 sources) Chronic rupture of anterior cruciate ligament of left knee; Translations: [Sprain of cruciate ligament of knee] Onset: 3 08-26-2017 Episodic Suicide and intentional self-inflicted injury (20 sources) Intentional drug overdose by tablet; Translations: [Poisoning by unspecified drugs, medicaments and biological substances, intentional self-harm, initial encounter] 02-26-2021 Episodic Unclassified (1 source) Encounter for screening mammogram for malignant neoplasm of breast; Translations: [Encounter for screening mammogram for malignant neoplasm of breast] Onset: 3 Unclassified (1 source) Spinal stenosis of lumbar region with neurogenic claudication [M48.062] Onset: 4 Urinary tract infections (20 sources) Urinary tract infectious disease; Translations: [Urinary tract infection, site not specified] 02-27-2020 Episodic Viral infection (11 sources) Acute viral disease; Translations: [Viral infection, unspecified] 11-29-2023 Episodic Past or Other Problems Problem Classification Problem Date Documented Da te Episodic/Chronic Administrative/social admission (12 sources) Patient encounter status; Translations: [Dietary counseling and surveillance] Episodic Diseases of mouth; excluding dental (20 sources) Glossodynia; Translations: [Glossodynia] Onset: 9 03-24-2019 Episodic Disorders of teeth and jaw (17 sources) Other specified disorders of teeth and supporting structures; Translations: [Temporomandibular joint disorder] Onset: 8 Episodic Fracture of lower limb (20 sources) Closed fracture of upper end of fibula; Translations: [Closed fracture of upper end of fibula alone] Onset: 3 07-19-2023 Episodic Fracture of upper limb (8 sources) Fracture of base of fifth metacarpal; Translations: [Displaced fracture of base of fifth metacarpal bone, left hand, initial encounter for closed fracture] Onset: 4 03-11-2024 Episodic Joint disorders and dislocations; trauma-related (20 sources) Patellofemoral stress syndrome; Translations: [Tear of lateral meniscus of knee] Onset: 3 07-19-2023 Episodic Joint disorders and dislocations; trauma-related (4 sources) Chondromalacia of left patella; Translations: [Chronic rupture of anterior cruciate ligament of left knee] Mood disorders (9 sources) Mood disorders Onset: 1 01-15-2021 Nausea and vomiting (20 sources) Nausea and vomiting; Translations: [Nausea with vomiting, unspecified] Onset: 4 10-07-2019 Episodic Other acquired deformities (20 sources) Acquired genu valgum; Translations: [Genu valgum (acquired)] Onset: 3 07-19-2023 Episodic Other and unspecified benign neoplasm (1 source) Personal history of colonic polyps Onset: 2 Resolved: 2 Episodic Other bone disease and musculoskeletal deformities (3 sources) Osteopenia; Translations: [Other specified disorders of bone density and structure, unspecified site] Onset: 3 07-19-2023 Episodic Other connective tissue [...] 3 07-19-2023 Episodic Other connective tissue disease (3 sources) Muscle weakness; Translations: [Muscle weakness (generalized)] Onset: 3 07-19-2023 Episodic Other connective tissue disease (3 sources) Bilateral trochanteric bursitis; Translations: [Trochanteric bursitis, right hip] Onset: 3 07-19-2023 Episodic Other connective tissue disease (9 sources) Trochanteric bursitis of left hip; Translations: [Trochanteric bursitis, left hip] Onset: 3 11-26-2022 Episodic Other connective tissue disease (2 sources) Spasm; Translations: [Other muscle spasm] Onset: 3 07-19-2023 Episodic Other connective tissue disease (1 source) Pain in right hand; Translations: [Pain in right hand] Onset: 4 Episodic Other connective tissue disease (3 sources) Tendinitis of right rotator cuff; Translations: [Rotator cuff tendonitis, right] Other fractures (20 sources) Compression fracture of lumbar spine; Translations: [Closed fracture of lumbar vertebra without mention of spinal cord injury] Onset: 3 07-19-2023 Episodic Other gastrointestinal disorders (12 sources) Constipation; Translations: [Constipation, unspecified] Episodic Other hereditary and degenerative nervous system conditions (20 sources) Tardive dyskinesia; Translations: [Subacute dyskinesia due to drugs] Onset: 3 07-19-2023 Episodic Other injuries and conditions due to external causes (2 sources) Unspecified injury of right lower leg, initial encounter; Translations: [Unspecified injury of right lower leg, initial encounter] Onset: 4 Episodic Other nervous system disorders (20 sources) Abnormal gait; Translations: [Abnormality of gait] Onset: 3 07-19-2023 Episodic Other nervous system disorders (20 sources) Tremor; Translations: [Abnormal involuntary movements] Onset: 3 07-19-2023 Episodic Other nervous system disorders (20 sources) Numbness and tingling sensation of skin; Translations: [Disturbance of skin sensation] Onset: 3 07-19-2023 Episodic Other nervous system disorders (12 sources) Paresthesia of hand ; Translations: [Paresthesia of skin] Episodic Other nervous system disorders (3 sources) H/O: trigeminal neuralgia; Translations: [Personal history of other diseases of the nervous system and sense organs] Onset: 3 07-19-2023 Episodic Other nervous system disorders (9 sources) Right trigeminal neuralgia; Translations: [Trigeminal neuralgia] Onset: 3 11-26-2022 Episodic Other non-traumatic joint disorders (4 sources) Pain in right knee; Translations: [PAIN IN RIGHT KNEE] Onset: 2 Episodic Other non-traumatic joint disorders (3 sources) Rotator cuff arthropathy of right shoulder; Translations: [Rotator cuff tear arthropathy of right shoulder] Other screening for suspected conditions (not mental disorders or infectious disease) (3 sources) Cancer cervix screening status; Translations: [Encounter for screening for malignant neoplasm of cervix] Onset: 3 05-25-2024 Episodic Other skin disorders (3 sources) Skin finding; Translations: [Unspecified skin changes] Onset: 3 07-19-2023 Episodic Other upper respiratory disease (9 sources) Hoarse; Translations: [Dysphonia] Onset: 7 01-05-2020 Episodic Other upper respiratory disease (9 sources) Polyp of vocal cord ; Translations: [Polyp of vocal cord and larynx] Onset: 0 01-11-2020 Episodic Other upper respiratory infections (9 sources) Acute sinusitis; Translations: [Acute sinusitis, unspecified] Onset: 7 Resolved: 2 10-16-2021 Episodic Otitis media and related conditions (18 sources) Dysfunction of bilateral eustachian tubes; Translations: [Unspecified Eustachian tube disorder, bilateral] Onset: 3 Resolved: 3 10-13-2022 Episodic Residual codes; unclassified (1 source) Asymptomatic menopausal state; Translations: [Asymptomatic menopausal state] Onset: 3 Episodic Residual codes; unclassified (1 source) Antibiotic [...] human papillomavirus (HPV) DNA test positive] Episodic Superficial injury; contusion (20 sources) Contusion of knee; Translations: [Contusion of knee] Onset: 3 07-05-2020 Episodic Syncope (20 sources) Loss of consciousness; Translations: [Syncope] Onset: 3 07-19-2023 Episodic Unclassified (3 sources) Myofascial pain syndrome; Translations: [Myofascial pain syndrome] Unclassified (3 sources) History of cervical spine fusion; Translations: [Status post cervical spinal fusion] Unclassified (5 sources) Patient encounter status; Translations: [Pre-op evaluation] Unclassified (20 sources) Wound ; Translations: [Traumatic wound] 08-02-2020 Unclassified (3 sources) Onset: 3 07-21-2023 NEGATED: Highlighted row has not occurred!Residual codes; unclassified (20 sources) Disease Episodic Results Test Name Value Interpretation Reference Range Facility CT abdomen pelvis w conon CT abdomen pelvis w con [facility] [place] [address] CT Scan Report Signed Patient: Georgia Junior MR#: [id number] 278 : 1965 Acct:[id number] Age/Sex: 59 / F ADM Date: 07/05/24 Loc: CT Room: Type: [facility] Attending Dr: Bharat Carreon APRN Copies to: Bharat Carreon APRN Ordering Provider: Bharat Carreon APRN Date of Service: 07/05/24 CT/CT abdomen pelvis w con: R10.9 - Unspecified abdominal pain CT Abdomen and Pelvis withcontrast TECHNIQUE: Axial imaging with 2-D reconstruction.90 cc of Isovue-300. The CT exam was performed using one or more the following dose reduction techniques: Automated exposure control, adjustment of the MA and/or Kv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 signs involving the circulatory and respiratory systems Report IMPRESSION: NO EVIDENCE OF SIGNIFICANT ARTERIAL STENOTIC DISEASE INVOLVING THE RIGHT AND LEFT LEGS. CLINICAL HISTORY: R09.89 Other specified symptoms and signs involving the circulatory and respiratory systems. COMPARISON: None available. FINDINGS: On the right, the brachial systolic pressure is 113 the high thigh pressure is 155 , index 1.35 the low thigh pressure is 153 , index 1.33 the calf pressure is 123 , index 1.07 the posterior tibial ankle pressure is 133 , index 1.16 the dorsalis pedis ankle pressure is 126 , index 1.10 and the digit pressure is 97, index 0.84 (with normal 0.7 or greater). The plethysmography waveforms are normal. On the left, the brachial systolic pressure is 115 the high thigh pressure is 142 , index 1.23 the low thigh pressure is 118 , index 1.03 the calf pressure is 128 , index 1.11 the posterior tibial ankle pressure is 132 , index 1.15 the dorsalis pedis ankle pressure is 125 , index 1.09 and the digit pressure is 99, index 0.86 (with normal 0.7 or greater). The plethysmography waveforms are normal. Ordering Provider: , FINAL REPORT Dictated: 06/17/2024 2:49 pm Aubrey Stauffer MD Signed (Electronic Signature): 06/17/2024 2:49 pm Signed by: Aubrey Stauffer MD Transcribed by: NASEEM Technologist: BERKLEY Felix [facility] No Panel Informationon 05-31 TAY MISCELLANEOUS COMMENT [facility] Comment on above: Test Ordered: [id number] IGP, Apt HPV,rfx 16/18,45 DIAGNOSIS: Comment [A ] 01 EPITHELIAL CELL ABNORMALITY. LOW GRADE SQUAMOUS INTRAEPITHELIAL LESION (LSIL). Recommendation: Comment [A ] 01 Suggest follow up as clinically appropriate. Specimen adequacy: Comment 01 Satisfactory for evaluation. No endocervical component is identified. Clinician provided ICD10: Comment 01 R87.610 Z12.4 Z87.42 Performed by: Comment 02 Aimee Quintero, Curing Press Maintainer (ASCP) Electronically signed by: Comment 01 Fredis Leonard MD, Pathologist . 01 Pathologist provided ICD10: Comment 01 R87.612 Note: Comment 01 The Pap smear is a screening test designed to aid in the detection of premalignant and malignant conditions of the uterine cervix. It is not a diagnostic procedure and should not be used as the sole means of detecting cervical cancer. Both false-positive and false-negative reports do occur. Test Methodology: Comment 01 This liquid based ThinPrep(R) pap test was screened with the use of an image guided system. HPV Aptima Negative 03 Reference Range: Negative This nucleic acid amplification test detects fourteen high-risk HPV types (16,18,31,33,35,39,45,51,52,56,58,59,66,68) without differentiation. Performed At: [address] [id number] Benito Fernández MD Ph:[phone] Performed At: 02 [facility] Cyto Histo [address] [place], [place] [id number] Kathe Traore MD Ph:[phone] Performed At: [address] [id number] Benito Fernández MD Ph:[phone] Specimen Comment: No. of containers..01 [facility] Anion gap [Moles/Vol] 13 mmol/L Normal 6-16 [facility] Comment on above: Performed By: #### 2 [id number] #### [facility] [address] [place] [address] Calcium [Mass/Vol] 8.6 mg/dL Low 8.9-11.1 [facility] Comment on above: Performed By: #### 2 [id number] #### [facility] [address] [place] [address] Chloride [Moles/Vol] 108 mmol/L Normal 101-111 [facility] Comment on above: Performed By: #### 2 [id number] #### [facility] [address] [place] [address] CO2 [Moles/Vol] 20 mmol/L Low 21-31 [facility] Comment on above: Performed By: #### 2 [id number] #### [facility] [address] [place] [address] Creatinine [Mass/Vol] 0.6 mg/dL Normal 0.5-1.3 [facility] Comment on above: Performed By: #### 2 805196 #### [facility] [address] [place] [address] Glucose [Mass/Vol] 114 mg/dL Normal 55-199 [facility] Comment on above: Performed By: #### 2 [id number] #### [facility] [address] [place] [address] Potassium [Moles/Vol] 3.6 mmol/L Normal 3.5-5.3 [facility] Comment on above: Performed By: #### 2 267069 #### [facility] [address] [place] [address] Sodium [Moles/Vol] 137 mmol/L Normal 135-145 [facility] Comment on above: Performed By: #### 2 583661 #### [facility] [address] [place] [address] Urea nitrogen [Mass/Vol] 8 mg/dL Normal 5-21 [facility] Comment on above: Performed By: #### 2 303764 #### [facility] [address] [place] [address] Urea nitrogen/Creatinine [Mass ratio] 13 No Units Normal 10-20 [facility] Comment on above: Performed By: #### 2 353115 #### [facility] [address] [place] [address] CBC w/ Auto Diffon 4 Basophils/100 WBC (Bld) 0.9 % Normal 0.0-2.0 [facility] Comment on above: Performed By: #### 2 [id number] #### [facility] [address] [place] [address] Basophils/Leukocytes Auto (Bld) [Pure # fraction] 0.1 E9/L Normal 0.0-0.2 [facility] Comment on above: Performed By: #### 2 347159 #### [facility] [address] [place] [address] Eosinophils (Bld) [#/Vol] 0.1 E9/L Normal 0.0-0.5 [facility] Comment on above: Performed By: #### 2 287186 #### [facility] [address] [place] [address] Eosinophils/100 WBC (Bld) 0.7 % Normal 0.0-8.0 [facility] Comment on above: Performed By: #### 2 835160 #### [facility] [address] [place] [address] Erythrocyte distribution width (RBC) [Ratio] 15.3 % High 10.9-14.2 [facility] Comment on above: Performed By: #### 2 663917 #### [facility] [address] [place] [address] Hematocrit (Bld) [Volume fraction] 38.1 % Normal 34.0-46.0 [facility] Comment on above: Performed By: #### 2 293666 #### [facility] [address] [place] [address] Hemoglobin (Bld) [Mass/Vol] 12.6 g/dL Normal 12.0-16. 0 [facility] Comment on above: Performed By: #### 2 378645 #### [facility] [address] [place] [address] Lymphocytes (Bld) [#/Vol] 1.9 E9/L Normal 1.0-4.0 [facility] Comment on above: Performed By: #### 2 940865 #### [facility] [address] [place] [address] Lymphocytes/100 WBC (Bld) 13.1 % Low 14.0-50.0 [facility] Comment on above: Performed By: #### 2 913558 #### [facility] [address] [place] [address] MCH (RBC) [Entitic mass] 28.5 pg Normal 27.0-34.0 [facility] Comment on above: Performed By: #### 2 044514 #### [facility] [address] [place] [address] MCHC (RBC) [Mass/Vol] 33.2 g/dL Normal 31.4-36.0 [facility] Comment on above: Performed By: #### 2 018525 #### [facility] [address] [place] [address] MCV (RBC) [Entitic vol] 85.8 fL Normal 80.0-100.0 [facility] Comment on above: Performed By: #### 2 411762 #### [facility] [address] [place] [address] Monocytes (Bld) [#/Vol] 1.6 E9/L High 0.2-1.0 [facility] Comment on above: Performed By: #### 2 988415 #### [facility] [address] [place] [address] Neutrophils (Bld) [#/Vol] 10.5 E9/L High 2.0-7.5 [facility] Comment on above: Performed By: #### 2 072514 #### [facility] [address] [place] [address] Neutrophils/100 WBC (Bld) 73.8 % Normal 36.0-75.0 [facility] Comment on above: Performed By: #### 2 134779 #### [facility] [address] [place] [address] Platelet mean volume (Bld) [Entitic vol] 7.7 fL Normal 6.4-10.8 [facility] Comment on above: Performed By: #### 2 484610 #### [facility] [address] [place] [address] Platelets (Bld) [#/Vol] 297.0 E9/L Normal 150. 0-500. 0 [facility] Comment on above: Performed By: #### 2 223303 #### [facility] [address] [place] [address] RBC (Bld) [#/Vol] 4.4 E12/L Normal 4.3-5.9 [facility] Comment on above: Performed By: #### 2 964830 #### [facility] [address] [place] [address] WBC corrected for nucl RBC Auto (Bld) [#/Vol] 14.2 E9/L High 4.0-11.0 [facility] Comment on above: Performed By: #### 2 762357 #### [facility] [address] [place] [address] CT Maxillofacial w/ Contrast on 05-10-2024 CT Maxillofacial w/ Contrast Exam Date/T dario: 05/10/2024 13:57 EDT Reason for Exam: Facial swelling;Other (please specify) Report IMPRESSION: INCREASED DENSITY OF SOFT TISSUES OF THE LEFT CHEEK LATERALLY, BOTH SUPERFICIAL AND DEEP TO THE FASCIA, CONSISTENT WITH EDEMA/CELLULITIS. CLINICAL HISTORY: Facial swelling COMMENT: Intravenous contrast-enhanced images were obtained. The facial bones are unremarkable, without evidence of fracture or bone destruction. There are bilateral dental findings, including metallic dental hardware and some absent teeth. Lateral to the left mandible and maxilla, there are increased densities within the fatty tissue of the left cheek, both superficial and deep to the fascia. A focal abscess cavity is not delineated, but the increased densities are consistent with edema/cellulitis of the soft tissue fatty tissue. The intraorbital structures are unremarkable. There is preseptal periorbital soft tissue swelling/haziness on the left. No soft tissue emphysema is evident. There are rounded polyps or cysts in the right maxillary sinus inferiorly. There is mild mucosal thickening of the left maxillary sinus inferiorly. There is minimal mucosal thickening of ethmoid sinuses and the right sphenoid sinus. Visualized intracranial structures of the anterior-inferior head are unremarkable. No contrast enhancing lesion is evident. All CT scans at this facility use dose modulation, iterative reconstruction, and/or weight based dosing when appropriate to reduce radiation dose to as low as reasonably achievable. Ordering Provider: Zac Stallworth FINAL REPORT Dictated: 05/10/2024 2:22 pm Ned Butterfield M.D. Signed (Electronic Signature): 05/10/2024 2:22 pm Signed by: Ned Butterfield M.D. Transcribed by: NASEEM Technologist: JESUS Technical Comments GFR (mL/min/1/73m2) . Contrast: None Contrast amount in ml's: 100 Normal [facility] ED Clinical Summaryon 2023 ED Clinical Summary ED Clinical Summary [place] [id number] ED Clinical Summary Person Information Name: GEORGIA JUNIOR [facility] Age: 59 Years : 1965 Sex: Female Language: Scottish PCP: CRISTIAN PRASAD Marital Status: Phone: [phone] Visit Id: Visit Reason: Medical problem - minor; Dental pain; Facial swelling; FACIAL SWELLING Speciality: Acuity: 3 Enc Type: Emergency Med Service: Emergency Arrival: 05/10/2024 12:52:28 Discharge: 05/10/2024 14:49:15 LOS: 000 01:57 Checkin: 05/10/2024 12:52:28 Checkout: 05/10/2024 14:49:15 Dispo Type: Home (Routine DC) EVENTS: Event Name Event Status Request Date/Time Start Date/Time Complete Date/Time Arrive Complete 05/10/2024 12:52:28 05/10/2024 12:52:28 05/10/2024 12:52:28 Document Home Meds Request 05/10/2024 12:52:28 Triage Complete 05/10/2024 12:52:28 05/10/2024 13:02:04 05/10/2024 13:02:04 Bed Assign Complete 05/10/2024 12:55:21 05/10/2024 12:55:21 05/10/2024 12:55:21 Dr Exam Complete 05/10/2024 12:55:21 05/10/2024 12:59:10 05/10/2024 12:59:10 RN Exam Complete 05/10/2024 12:55:21 05/10/2024 14:04:47 05/10/2024 14:04:47 Registration Complete 05/10/2024 12:59:10 05/10/2024 13:06:42 05/10/2024 13:06:42 Dr Exam Complete 05/10/2024 13:00:46 05/10/2024 13:00:46 05/10/2024 13:00:46 Reg Complete Request 05/10/2024 13:06:42 Reg Bed Request Complete 05/10/2024 13:06:42 05/10/2024 13:06:42 05/10/2024 13:06:42 CT Complete 05/10/2024 13:16:55 05/10/2024 13:29:32 05/10/2024 13:57:34 Pending Labs Complete 05/10/2024 13:16:55 05/10/2024 13:54:30 Lab Complete 05/10/2024 13:16:55 05/10/2024 13:54:30 Pending Labs Complete 05/10/2024 13:31:38 05/10/2024 13:31:38 05/10/2024 13:54:30 Lab Complete 05/10/2024 13:31:38 05/10/2024 13:31:38 05/10/2024 13:54:30 Meds Admin Complete 05/10/2024 14:35:19 05/10/2024 14:40:29 Discharge Complete 05/10/2024 14:37:19 05/10/2024 14:49:23 05/10/2024 14:49:23 Transfer Complete 05/10/2024 14:49:23 05/10/2024 14:49:23 05/10/2024 14:49:23 ADDRESS: [address] [place] [address] [address] [facility] [id number] PHYS DOC NOTES: MEDICAL INFORMATION: Prescriptions Given: New Medications [facility], [address] [facility][Note 3] [place], [place] [id number], [phone] clindamycin (clindamycin 300 mg oral cap) 1 Capsules By Mouth every 6 hours for 7 Days. Refills: 0. ondansetron (ondansetron 4 mg Dis Tab) 1 Tablets By Mouth every 6 hours. Refills: 0. Medications to Continue with No Changes Other Medications alendronate (alendronate 70 mg Tab) TAKE 1 TABLET BY MOUTH ONCE A WEEK. amitriptyline (amitriptyline 75 mg oral tablet) atorvastatin (atorvastatin 40 mg Tab) TAKE 1 TABLET BY MOUTH EVERY DAY. brexpiprazole (Rexulti 2 mg oral tablet) diclofenac topical (diclofenac topical 1% gel) dicyclomine (dicyclomine 10 mg Cap) dulaglutide (Trulicity Pen 4.5 mg/0.5 mL subcutaneous solution) duloxetine (duloxetine 60 mg Cap-DR) By Mouth every day. formoterol-mometasone (Dulera) Inhalation BID. ipratropium nasal (ipratropium Nasal 0.06% [place]) 2 Sprays Nasal Inhalation 3 times a day. methylphenidate (methylphenidate 10 mg Tab) omeprazole (omeprazole 40 mg Cap-DR) pantoprazole (Pantoprazole [address] Tab) TAKE 1 TABLET BY MOUTH TWICE A DAY. pilocarpine (pilocarpine 5 mg Tab) 1 Tablets By Mouth 3 times a day. pregabalin (pregabalin 100 mg Cap) TAKE 1 CAPSULE BY MOUTH THREE TIMES A DAY. promethazine (promethazine 25 mg Tab) By Mouth every 6 hours. sucralfate (sucralfate 1 g Tab) terazosin (terazosin 5 mg Cap) 1 Capsules By Mouth every day. Refills: 3. tizanidine (tiZANidine 4 mg Tab) TAKE 1 TABLET BY MOUTH TWICE A DAY NEEDED FOR MUSCLE SPASMS. topiramate (Topamax 100 mg Tab) 1 Tablets By Mouth once a day (in the evening). Refills: 5. PATIENT EDUCATION INFORMATION: Instructions: Cellulitis, Adult Follow up: With: Address: When: CRISTIAN PRASAD In 3 days 05/13/2024 DIAGNOSIS: Facial cellulitis; Facial swelling; Pain due to dental caries Normal [facility] ED Note-Physicianon 05-10-20 ED Note-Physician ED Note-Physician Basic Information Time Seen: Zac Stallworth PA-C. 05/10/2024 12:59 Chief Complaint Pt broke a tooth crown yesterday. Last night started with L sided facial swelling. States getting worse and now into jaw and under L eye. History of Present Illness Patient is a 59-year-old female that presents today for evaluation of her left-sided facial swelling that started last night. She states that a crown on one of her teeth broke off yesterday and prior to going to bed she noted that her left side of her face was getting swollen. She states is continuing to get worse and is now spreading into her jaw and underneath the left eye. She denies any fevers or bodyaches but does state that she feels chilled. She has a history of poor dentition and has had work done recently for this. Review of Systems No other aggravating or relieving factors no other associated symptoms no other prior treatments or complaints. Family: Reviewed and noncontributory Social: lives at home Review of systems negative unless otherwise specified in the HPI. Physical Exam Vitals & Measurements T: 36.6 ?C(Oral) HR: 74(Peripheral) RR: 16 BP: 146/107 SpO2: 98% HT: 158 cm WT: 78 kg BMI: 31.24 Nurses notes reviewed and patient is noted to be non-hypoxic. General: The patient is comfortable, alert and oriented x3, well appearing, non toxic in no apparent distress. Head: Atraumatic and normocephalic. Eyes: Normal conjunctiva ENT: The oropharynx is normal. No pharyngeal erythema, uvular edema, tonsillar exudates, asymmetry or trismus. Uvula is midline. Mouth is normal to inspection With the exception of multiple dental caries throughout. There is evidence of facial asymmetry with swelling noted extending from the jaw on the left side up to the bottom of the eye. No abscess formation. Floor of the mouth is soft. No tenderness in the submental or submandibular space. No tongue elevation or deviation. The patient has no evidence of periapical abscess, gingivitis, ANUG or other acute pathology. Airway is patent. Neck: The neck demonstrates normal range of motion. No meningeals signs are present. No stridor. No masses or lymphandenopathy noted. Respiratory: No acute distress. No stridor or retractions are noted. Cardiovascular: Normal perfusion peripherally. Skin: The skin exam shows no evidence of rashes Neuro: Alert and oriented, normal speech Medical Decision Making Patient is a 59-year-old female that presents today for evaluation of her left sided facial swelling that started last night. A crown on one of her teeth broke off yesterday and prior to going to bed she noted some facial swelling that is continuing to worsen. She does endorse some chills but denies any objective fevers. She has had dental work on her poor dentition in the last couple of weeks.. On exam the patient is afebrile and nontoxic-appearing. She does have facial asymmetry with swelling and redness noted on the left side of the face extending from the jaw up to the bottom of the eye. No abscess formation appreciated. No tongue or uvular deviation. There are multiple dental caries noted throughout the mouth. Labs do demonstrate a leukocytosis at 14.2. Lactic acid WNL. CT maxillofacial with contrast demonstrates increased density of soft tissue of the left cheek laterally both superficial and deep to the fascia consistent with edema/cellulitis. A focal abscess cavity is not delineated, no contrast-enhancing lesion is evident. Given the findings consistent with new onset facial cellulitis and the patient's associated allergies we will start her on clindamycin as directed by pharmacy. Will provide her with Zofran as well. She will follow-up with her dentist and PCP to ensure she is getting better within the next 3 days. She just had pain medication sent to her by her dentist so we will hold off on further pain meds. Return to ED precautions were reviewed with the patient at length. Assessment/Plan Facial cellulitis (L03.211: Cellulitis of face) Facial swelling (R22.0: Localized swelling, mass and lump, head) Pain due to dental caries (K02.9: Dental caries, unspecified) Orders: clindamycin, 300 mg = 2 cap(s), Cap, Oral, Once, Stop date 05/10/24 14:35:00 EDT, STAT, Start date 05/10/24 14:35:00 EDT, 05/10/24 14:35:00 EDT clindamycin, 300 mg = 1 cap(s), Oral, q6hr, X 7 day(s), # 28 cap(s), Refills(s) 0, Pharmacy: [facility], 158, cm, 05/10/24 13:02:00 EDT, Height/Length Dosing, 78, kg, 05/10/24 13:02:00 EDT, Weight Dosing ondansetron, 4 mg = 1 tab(s), Tab-Dis, Oral, Once, Stop date 05/10/24 14:34:00 EDT, STAT, Start date 05/10/24 14:34:00 EDT, 05/10/24 14:34:00 EDT ondansetron, 4 mg = 1 tab(s), Oral, q6hr, # 12 tab(s), Refills(s) 0, Pharmacy: [facility], 158, cm, 05/10/24 13:02:00 EDT, Height/Length Dosing, 78, kg, 05/10/24 13:02:00 EDT, Weight Dosing Basic Metabolic Panel CBC w/ Auto Diff CT Maxillofacial w/ Contrast eGFR Lactic Acid Medications Administered Given c (more content not included)... Normal [facility] Comment on above: Result Comment: Elec tronically Signed By: Zac Stallworth PA-C\.br\Date and Time Signed: 05/10/24 15:03 EDT\.br\Electronically Co-Signed By: Mayur Judd DO\.br\Date and Time Co-Signed: 05/10/24 15:43 EDT ED Patient Summaryon 024 ED Patient Summary ED Patient Summary [place] [id number] Patient Discharge Instructions Person Information Name: GEORGIA JUNIOR Age: 59 Years Arrival Date: 05/10/2024 12:52:28 Discharge Diagnosis: Facial cellulitis; Facial swelling; Pain due to dental caries Primary Care Physician: CRISTIAN PRASAD Provider Information Primary Provider: Mayur Judd DO Advanced Winder Operator:Zac Stallworth PA-C The exam and treatment you received in the Emergency Department were for an urgent problem and are not intended as complete care. It is important that you follow up with a doctor, nurse practitioner, or physician?s tax assistant for ongoing care. If your symptoms become worse or you do not improve as expected and you are unable to reach your usual health care provider, you should return to the Emergency Department. We are available 24 hours a day. GEOR[place]IA JUNIOR has been given the following list of patient education materials, prescriptions and follow-up instructions: Follow-up Instructions: With: Address: When: CRISTIAN OSMAR In 3 days 05/13/2024 In the event that this physician does not participate in your insurance network, please consult with your insurance company to find a nearby participating provider. Patient Education Materials: Cellulitis, Adult A MESSAGE TO ALL PATIENTS REGARDING OPIOIDS PRESCRIPTION OPIOIDS: WHAT YOU NEED TO KNOW Prescription opioids can be used to help relieve [id number] pain and are often prescribed following a surgery or injury, or for certain health conditions. These medications can be an important part of the treatment but also come with serious risks. It is important to work with your healthcare provider to make sure you are getting the safest, most effective care. WHAT ARE THE RISKS AND SIDE EFFECTS OF OPIOID USE? Prescription opioids carry serious risks of addiction and overdose, especially with prolonged use. An opioid overdose, often marked by slowed breathing, can cause sudden . The use of prescription opioids can have a number of side effects as well, even when taken as directed: ? Tolerance?meaning you might need to take more of the medication for the same pain relief ? Physical dependence?meaning you have symptoms of withdrawal when a medication is stopped ? Increased sensitivity to pain ? Constipation ? Nausea, vomiting, and dry mouth ? Sleepiness and dizziness ? Confusion ? Depression ? Low levels of testosterone that can result in lower sex drive, energy, and strength ? Itching and sweating RISKS ARE GREATER WITH: ? History of drug misuse, substance use disorder, or overdose ? Mental health conditions (such as depression or anxiety) ? Sleep apnea ? Older age (65 years and older) ? Avoid alcohol while taking prescription opioids. Also, unless specifically advised by your health care provider, medications to avoid include: ? Benzodiazepines (such as Xanax or Valium) ? Muscle relaxants (such as Soma or Flexeril) ? Hypnotics (such as Ambien or Lunesta) ? Other prescription opioids KNOW YOUR OPTIONS Talk to your health care provider about ways to manage your pain that don?t involve prescription opioids. Some of these options may actually work better and have fewer risks and side effects. Options may include: ? Pain relievers such as acetaminophen, ibuprofen, and naproxen ? Some medication that are also used for depression or seizures ? Physical therapy and exercise ? Cognitive behavioral therapy, a psychological, goal-directed approach, in which patients learn how to modify physical, behavioral, and emotional triggers of pain and stress. IF YOU ARE PRESCRIBED OPIOIDS FOR PAIN: ? Never take opioids in greater amounts or more often than prescribed. ? Follow up with your primary health care provider. o Work together to create a plan on how to manage your pain. o Talk about ways to help manage your pain that don?t involve prescription opioids. o Talk about any and all concerns and side effects. ? Help prevent misuse and abuse o Never sell or share prescription opioids. o Never use another person?s prescription opioids. ? Store prescription opioids in a secure place and out of reach of others (this may include visitors, children, friends, and family). ? Safely dispose of unused prescription opioids: Find your community drug take-back program or your pharmacy mail-back program, or flush them down the toilet, following guidance from the Food and Drug Administration (www.fda.gov/Drugs/Re sourcesForYou). ? Visit www.cdc.gov/drugoverd ose to learn about the risks of opioids abuse and overdose. ? If you believe you may be struggling with addiction, tell your health healthcare liaison and ask for guidance or call [facility] National Helpline at 4-720-907-TFNR. z Source: Department of (more content not included)... Normal [facility] Lactic Acidon 05-10-2024 Lactic Acid Lvl 0.8 mmol/L Normal 0.5-2.2 [facility] Comment on above: Performed By: #### [id number] #### [facility] [address] [place] [address] eGFRon 05-10-2024 eGFR 103 mL/min/1.73 m2 Normal >=59 [facility] Comment on above: Order Comment: Order added by Discern Expert. Performed By: #### 1 [id number] #### [facility] [address] [facility] [place] [address] Office Visiton 05-03-2024 Follow-up visit [id number] Georgia Junior 1965 F Date Provider Department Center 05/03/2024 [id number] ART [facility] None Family History Problem Relation Age of Onset Seizures Mother Parkinsonism Paternal Grandfather Depression Brother Fibromyalgia Sister Migraines Sister Family Status - Relation Status Age at Mother Paternal Grandfather Brother Sister Level of Service:75727 CT OFFICE/OUTPATIENT ESTABLISHED MOD MDM 30 MIN Reason for Visit and Comments: Follow-up [116716] Normal [facility] PATINSon 05-03-2024 PATINS Schedule your physical therapy: [facility] Address: [facility] [place] [address] 2 times per week for 8 weeks 1. Occipital neuralgia right 2. Right TMJ arthralgia Referral for dental for bite guard for TMJ Referral for pain management for occipital neuralgia for potential nerve block Normal [facility] Progress Noteon 05-03-2024 Progress Note Visit type: Established Patient Reason for Visit: Follow-up Assessment and Plan 1. Occipital neuralgia of right side 2. Right temporomandibular joint disorder, unspecified Subjective HPI: Follow up for occipital neuralgia and TMJ- Pain in right occiput and refers to right ear Placed on carbamazepine - this helped initially, but then not so much Received injection in TMJ joint without relief Was on amitriptyline, then stopped and head pain worsened. At last visit, added doxepin 25mg after supper at last visit to help with head pain (already on duloxetine) Was asked to see her pain mgmt doc about occipital nerve block. Lidocaine rick to right occipital nerve PRN PT ordered for TMJ Today, patient states the doxepin is helping head pain; she is tolerating it well She hasn't needed to use the lidocaine rick XR cervical spine 04/06- IMPRESSION: 1. Cervical spondylosis C4-C5 and remote lower anterior cervical spine fusion that appears intact. 2. No acute bony abnormalities and no subluxation. No new neurological issues REVIEW OF SYSTEMS: Review of Systems Constitutional: Negative. HENT: Negative. Eyes: Negative. Respiratory: Negative. Cardiovascular: Negative. Gastrointestinal: Negative. Endocrine: Negative. Genitourinary: Negative. Musculoskeletal: Positive for back pain. Skin: Negative. Allergic/Immunologic: Negative. Neurological: Positive for headaches. Hematological: Negative. Psychiatric/Behaviora l: Negative. Allergies Allergen Reactions Penicillins Hives and Rash Cephalexin Hives Dupixent [Dupilumab] Hives Hydrochlorothiazide Hives Lurasidone Rash Morphine Hives and Rash Norflex Tablets [Orphenadrine] Itching Pyridium [Phenazopyridine] Headache Sulfa Antibiotics Hives and Rash Vistaril [Hydroxyzine] Hives Hydrocodone-Acetamino phen Nausea And Vomiting and Headache Outpatient Medications Prior to Visit Medication Sig Dispense Refill albuterol 108 (90 Base) MCG/ACT inhaler Inhale 2 puffs every 4 hours as needed. alendronate (Fosamax) 70 MG tablet Take 70 mg by mouth every 7 days. atorvastatin (Lipitor) 40 MG tablet Take 40 mg by mouth Nightly. Brexpiprazole (Rexulti) 3 MG tablet Take by mouth daily. Calcium Carb-Cholecalciferol 600-20 MG-MCG tablet Take 2 tablets by mouth in the morning. carBAMazepine (TEGretol) 200 MG tablet 100 mg 2 times daily. cetirizine (ZyrTEC) 10 MG tablet Take 10 mg by mouth daily. cholecalciferol (Vitamin D-3) 125 MCG (5000 UT) tablet Take 5,000 Units by mouth in the morning. doxepin (SINEquan) 25 MG capsule Take 1 capsule (25 mg) by mouth with evening meal. 30 capsule 11 DULoxetine (Cymbalta) [address] capsule Take 60 mg by mouth 2 times daily. Do not crush or chew. etodolac (Lodine) 200 MG capsule Take 200 mg by mouth 2 times daily. ipratropium (Atrovent) 0.06 % nasal spray Administer 2 sprays into each nostril in the morning and 2 sprays in the evening. levETIRAcetam (Keppra) 250 MG tablet Take 250 mg by mouth 2 times daily. methylphenidate (Ritalin) 10 MG tablet Take 10 mg by mouth 2 times daily. mometasone-formoterol (Dulera) 200-5 MCG/ACT inhaler Inhale 2 puffs in the morning and 2 puffs in the evening. Rinse mouth with water after use to reduce aftertaste and incidence of candidiasis. Do not swallow.. pilocarpine (Salagen) 7.5 MG tablet Take 7.5 mg by mouth 3 times daily. potassium chloride CR (Klor-Con M20) 20 MEQ ER tablet Take 20 mEq by mouth daily. Do not crush or chew. pramipexole (Mirapex) 1 MG tablet Take 1 mg by mouth 2 times daily. pregabalin (Lyrica) 150 MG capsule Take 150 mg by mouth 3 times daily. terazosin (Hytrin) 5 MG capsule Take 5 mg by mouth Nightly. topiramate (Topamax) 100 MG tablet Take 100 mg by mouth Nightly. Trulicity 4.5 MG/0.5ML solution pen-injector Inject 4.5 mg under the skin 1 (one) time per week. No facility-administered medications prior to visit. Past Medical History: Diagnosis Date Anxiety DDD (degenerative disc disease), lumbar Depression 1993 Fibromyalgia Fibromyalgia, primary 01/30 Insomnia 2013 Movement disorder 08/05 Restless leg syndrome 2003 Tremor 2019 Trigeminal neuralgia 01/04 Weakness of limb 2018 Social History Tobacco Use Smoking status: Former Average packs/day: 1 pack/day for 35.8 years (35.8 ttl pk-yrs) Types: Cigarettes Start date: 1987 Smokeless tobacco: Never Substance Use Topics Alcohol use: Not Currently Alcohol/week: 1.0 standard drink of alcohol Comment: Rarely History reviewed. No pertinent surgical history. Family History Problem Relation Name Age of Onset Seizures Mother Deanna Pickard Parkinsonism Paternal Grandfather Vic Pickard Depression Brother Ronen Pickard Fibromyalgia Sister Meche Dale Migraines Sister Meche Dale Objective Vitals: BP 95/62 (BP Location: Right arm, Patient Position: Sitting, BP Cuff Size: Adult) Pulse 72 Ht 5' 1 (1.549 m) Wt 176 lb (79.8 kg) (more content not included)... Normal [facility] Yield Software System [facility] XR SHOULDER RIGHT 2+ VIEWSon 04-28-2024 XR SHOULDER RIGHT 2+ VIEWS Interpreted B y: Presley Blancas, STUDY: XR SHOULDER RIGHT 2+ VIEWS; ; 04/28/2024 11:21 am INDICATION: Signs/Symptoms:r reverse. COMPARISON: 10/07/2022 ACCESSION NUMBER(S): [id number] ORDERING CLINICIAN: EUGENE OSUNA TECHNIQUE: 4 radiographs of the right shoulder performed. FINDINGS: The patient is status post reverse shoulder arthroplasty. The implant is well aligned. There is no ace-implant fracture. The osseous structures are demineralized. There is chronic appearing deformity of the right posterior 5th rib which is unchanged. There is no acute fracture or dislocation. There is no bone destruction or abnormal periosteal reaction. No lytic or blastic lesion is detected. IMPRESSION: Status post reverse shoulder arthroplasty. No sign of hardware failure or ace-implant fracture. Old fracture/deformity of the posterior right 5th rib. Osteopenia. MACRO: None Signed by: Presley Blancas 05/02/2024 2:52 PM Dictation workstation: [id number] [facility] MR KNEE RT WO CONTon 024 MR KNEE RT WO CONT MR KNEE RT WO CONT MRI RIGHT KNEE CLINICAL INFORMATION: Knee pain. Primary osteoarthritis of right knee contusion of right knee COMPARISON: ?None. PROCEDURE: ?Multisequence, multiplanar MR images of the knee were obtained. FINDINGS: MENISCI Medial meniscus: Torn. Obliquely oriented tear in the posterior horn of the medial meniscus is appreciated and superimposed upon postsurgical change Lateral meniscus: No change LIGAMENTS Cruciate ligaments: Mucoid degeneration of the ACL is appreciated. The proximal PCL is thickened with increased signal. This may represent early mucoid involvement Medial collateral ligament: Superficial and deep components intact. No periligamentous edema. Lateral collateral ligament: Intact. EXTENSOR MECHANISM Extensor mechanism: The distal quadriceps and patellar tendons are intact. The patella is slightly subluxed laterally. The retinaculum are unremarkable FLUID Fluid: Small size complex joint effusion. Very small size Peacock's cyst. OSSEOUS and ARTICULAR STRUCTURES Bones: Multiple nondisplaced anterior proximal tibial fractures are appreciated. Given the signal intensity, this likely is subacute in age. Please correlate with past history and mechanism of injury. Normal marrow signal is appreciated in the distal femur, proximal fibula and patella Patellofemoral compartment: Mild chondral wear Medial compartment: Mild chondral wear Lateral compartment: Mild chondral wear IMPRESSION: Multiple nondisplaced tibial fractures are appreciated proximally. Given the signal intensity of the surrounding edema this is likely subacute in age. Please correlate with history of mechanism of injury. Mucoid degeneration of the ACL. Follow-up with orthopedics is suggested. Additional findings are detailed above Finalized by Jennifer Bernardo MD on 04/21/2024 2:26 PM Normal [facility] CT HAND LT WO CONTon 024 CT HAND LT WO CONT CT HAND LT WO CONT History: Fifth metacarpal fracture Exam/Technique: Thin axial images through the left hand were obtained. Study was supplemented by sagittal and coronal reconstructed images. Automated exposure control was utilized. Comparison: None Findings: CT confirms presence of a comminuted minimally displaced no definite intra-articular extension is seen. The remainder the visualized osseous structures are intact. Fracture of the base of the fifth metacarpal. IMPRESSION: Comminuted minimally displaced fracture of the base of the fifth metacarpal. Finalized by Hebert Germain MD on 03/29/2024 10:16 AM Normal [facility] ED Clinical Summaryon 2023 ED Clinical Summary ED Clinical Summary [place] [id number] ED Clinical Summary Person Information Name: GEORGIA JUNIOR [facility] Age: 59 Years : 1965 Sex: Female Language: Scottish PCP: CRISTIAN PRASAD Marital Status: Phone: [phone] Visit Id: Visit Reason: Nausea; Shortness of breath; Chest pain; CHEST PAIN Speciality: Acuity: 3 Enc Type: Emergency Med Service: Emergency Arrival: 03/24/2024 22:55:51 Discharge: 03/25/2024 01:29:07 LOS: 000 02:34 Checkin: 03/24/2024 22:55:51 Checkout: 03/25/2024 01:29:07 Dispo Type: Home (Routine DC) EVENTS: Event Name Event Status Request Date/Time Start Date/Time Complete Date/Time Arrive Complete 03/24/2024 22:55:51 03/24/2024 22:55:51 03/24/2024 22:55:51 Document Home Meds Request 03/24/2024 22:55:51 Triage Complete 03/24/2024 22:55:51 03/24/2024 23:02:09 03/24/2024 23:02:09 EKG Complete 03/24/2024 22:57:24 03/24/2024 22:59:46 Bed Assign Complete 03/24/2024 22:58:33 03/24/2024 22:58:33 03/24/2024 22:58:33 Dr Exam Complete 03/24/2024 22:58:33 03/24/2024 22:58:52 03/24/2024 22:58:52 RN Exam Complete 03/24/2024 22:58:33 03/24/2024 23:12:15 03/24/2024 23:12:15 Registration Complete 03/24/2024 22:58:52 03/24/2024 23:08:45 03/24/2024 23:08:45 Pending Labs Complete 03/24/2024 23:02:36 03/25/2024 00:59:03 Lab Complete 03/24/2024 23:02:36 03/24/2024 23:35:27 Patient Care Request 03/24/2024 23:02:36 RT Request 03/24/2024 23:02:36 X-Ray Complete 03/24/2024 23:02:36 03/24/2024 23:15:15 03/24/2024 23:25:33 Reg Complete Request 03/24/2024 23:08:45 Reg Bed Request Complete 03/24/2024 23:08:45 03/24/2024 23:08:45 03/24/2024 23:08:45 Fall Risk Request 03/24/2024 23:12:15 Pending Labs Complete 03/24/2024 23:17:06 03/24/2024 23:17:06 03/24/2024 23:35:27 Lab Complete 03/24/2024 23:17:06 03/24/2024 23:17:06 03/24/2024 23:35:27 Wet Read Request 03/24/2024 23:25:33 Meds Admin Complete 03/24/2024 23:50:59 03/25/2024 00:03:52 Discharge Complete 03/25/2024 01:17:34 03/25/2024 01:29:10 03/25/2024 01:29:10 Transfer Complete 03/25/2024 01:29:10 03/25/2024 01:29:10 03/25/2024 01:29:10 ADDRESS: [address] [facility] [id number] PHYS DOC NOTES: MEDICAL INFORMATION: Prescriptions Given: Medications to Continue with No Changes Other Medications alendronate (alendronate 70 mg Tab) TAKE 1 TABLET BY MOUTH ONCE A WEEK. amitriptyline (amitriptyline 75 mg oral tablet) atorvastatin (atorvastatin 40 mg Tab) TAKE 1 TABLET BY MOUTH EVERY DAY. brexpiprazole (Rexulti 2 mg oral tablet) diclofenac topical (diclofenac topical 1% gel) dicyclomine (dicyclomine 10 mg Cap) dulaglutide (Trulicity Pen 4.5 mg/0.5 mL subcutaneous solution) duloxetine (duloxetine 60 mg Cap-DR) By Mouth every day. formoterol-mometasone (Dulera) Inhalation BID. ipratropium nasal (ipratropium Nasal 0.06% [place]) 2 Sprays Nasal Inhalation 3 times a day. methylphenidate (methylphenidate 10 mg Tab) omeprazole (omeprazole 40 mg Cap-DR) pantoprazole (Pantoprazole [address] Tab) TAKE 1 TABLET BY MOUTH TWICE A DAY. pilocarpine (pilocarpine 5 mg Tab) 1 Tablets By Mouth 3 times a day. pregabalin (pregabalin 100 mg Cap) TAKE 1 CAPSULE BY MOUTH THREE TIMES A DAY. promethazine (promethazine 25 mg Tab) By Mouth every 6 hours. sucralfate (sucralfate 1 g Tab) terazosin (terazosin 5 mg Cap) 1 Capsules By Mouth every day. Refills: 3. tizanidine (tiZANidine 4 mg Tab) TAKE 1 TABLET BY MOUTH TWICE A DAY NEEDED FOR MUSCLE SPASMS. topiramate (Topamax 100 mg Tab) 1 Tablets By Mouth once a day (in the evening). Refills: 5. PATIENT EDUCATION INFORMATION: Instructions: Nonspecific Chest Pain, Adult Follow up: With: Address: [place]: CRISTIAN PRASAD In 3 days 03/28/2024 DIAGNOSIS: Chest pain Normal [facility] ED Note-Physicianon 03-25-20 ED Note-Physician ED Note-Physician Basic Information Time Seen: Tonny Chiu DO 03/24/2024 22:58 Chief Complaint complains of mid chest pain starting about one hour ago while sitting on the couch. sob and nausea. 4 baby asa History of Present Illness HPI: Patient is a 59-year-old female with past medical history of asthma, COPD, fibromyalgia, hiatal hernia, hypertension, hyperlipidemia, kidney stones, migraines, narcolepsy, depression who presents the ED via EMS from home for chest discomfort. Patient states that approximately 1 hour prior to arrival she was sitting at rest when she developed substernal chest pain. She states that initially it was constant but now is coming and going. She did have some associated shortness of breath with this. She denies nausea or vomiting. She is never anything like this in the past. Nothing makes any better or any worse. She was given 4 baby aspirin prior to arrival by EMS. ROS: Pertinent review of systems conducted and is negative except as noted above. Physical exam: General: nontoxic appearing and in no distress HEENT: Mucous membranes moist Neuro: awake and alert Neck: supple, trachea midline Card: Heart regular rate and rhythm no murmur Resp: Lungs clear to auscultation no wheeze or rhonchi Abd: Soft and nondistended. No tenderness to palpation with no rebound or guarding. Ext: No gross deformity or edema Physical Exam Vitals & Measurements T: 36.4 ?C(Oral) HR: 63(Peripheral) RR: 16 BP: 112/82 SpO2: 100% HT: 158 cm WT: 84 kg BMI: 33.65 Medical Decision Making MEDICAL DECISION MAKING Number and Complexity of Problems Differential Diagnosis: [] [facility] Data External documents reviewed: N/A My EKG interpretation: Noted in chart if applicable My CT interpretation: N/A My X-ray interpretation: Noted in chart if applicable My Ultrasound interpretation: N/A Decision rules/scores evaluated: Heart Score for Major Cardiac Event History: Example factors for history - pattern of chest pain, onset, duration, relation with exercise, stress or cold, localization, concominant symptoms. reaction to sublingual nitrates, [] Highly suspicious +2 [] Moderately suspicious +1 [X] Slightly suspicious 0 EKG: [] Significant ST-Depression +2 [] Non specific repolarization disturbance +1 [X] Normal 0 Age: [] >= 65 +2 [X] 45-65 + 1 [] <45 0 Risk Factors: (HLD, HTN, DM, Cigarette Smoking, Pos Family Hx, Obesity) [] >3 risk factors or hx of atheroslerotic disease + 2 [X] 1-2 risk factors + 1 [] No risk factors known 0 Troponin: [] >= 3X normal + 2 [] 1-3X normal + 1 [X] <= Normal 0 [X] 0-3 Points 0.9 - 1.7% risk of major adverse cardiac event in 6 weeks [] 4-6 Points 12-16.6% risk of major adverse cardiac event in 6 weeks [] 7-10 Points 50-65% risk of major adverse cardiac event in 6 weeks [X] 0-3 Points with 2 sets of negative cardiac markers <1% risk of major adverse cardiac event in 30 days. Discussed with: N/A Treatment and Disposition ED Course: Patient is nontoxic-appearing in no distress. Cardiac workup was initiated in the ED. Workup is overall reassuring. She has 2 negative troponins and a heart score of less than 4. She was given a GI cocktail in the ED. Reassessment she is feeling much better. We discussed the results of her lab work and imaging. At this time I feel she is stable for discharge with close follow-up with her primary care physician. We discussed return precautions. Patient states understanding agreement this plan was discharged in stable condition. Shared decision making: As above Code status: N/A Assessment/Plan Chest pain (R07.9: Chest pain, unspecified) Orders: Al hydroxide/Mg hydroxide/simethicone , 30 mL, Susp-Oral, Oral, Once, Stop date 03/24/24 23:50:00 EDT, STAT, Start date 03/24/24 23:50:00 EDT lidocaine topical, 200 mg, 10 mL, Soln-Oral, Oral, Once, Stop date 03/24/24 23:50:00 EDT, STAT, Start date 03/24/24 23:50:00 EDT Basic Metabolic Panel CBC w/ Auto Diff ECG 12 Lead Adult ED Cardiac Monitoring eGFR Oxygen Saturation Oxygen Therapy PT & PTT Saline Lock Insert Troponin 0 Hr. Troponin 1 Hr. XR Chest Single View Medications Administered Given Al hydroxide/Mg hydroxide/simethicone 200 mg-200 mg-20 mg/5 mL oral suspension, 30 mL, Oral lidocaine Viscous Top 2% Alcira, 200 mg, Oral Disposition Plan Discharge Prescription List Prescriptions No active prescription medications Follow-up With When Contact Information CRISTIAN PRASAD In 3 days 03/28/2024 EDT Additional Instructions: Patient Education Nonspecific Chest Pain, Adult Problem List/Past Medical History Ongoing Acute asthma Anemia Apnea, sleep Bipolar I disorder, mild, current or most recent episode depressed, with mixed features Chronic neck p (more content not included)... Normal [facility] Comment on above: Result Comment: Elec tronically Signed By: Tonny Chiu DO\.br\Date and Time Signed: 03/25/24 01:19 EDT ED Patient Summaryon 024 ED Patient Summary ED Patient Summary [place] [id number] Patient Discharge Instructions Person Information Name: GEORGIA JUNIOR Age: 59 Years Arrival Date: 03/24/2024 22:55:51 Discharge Diagnosis: Chest pain Primary Care Physician: CRISTIAN PRASAD Provider Information Primary Provider: Tonny Chiu DO Advanced Winder Operator:None The exam and treatment you received in the Emergency Department were for an urgent problem and are not intended as complete care. It is important that you follow up with a doctor, nurse practitioner, or physician?s tax assistant for ongoing care. If your symptoms become worse or you do not improve as expected and you are unable to reach your usual health care provider, you should return to the Emergency Department. We are available 24 hours a day. GEORGIA JUNIOR has been given the following list of patient education materials, prescriptions and follow-up instructions: Follow-up Instructions: With: Address: When: CRISTIAN PRASAD In 3 days 03/28/2024 In the event that this physician does not participate in your insurance network, please consult with your insurance company to find a nearby participating provider. Patient Education Materials: Nonspecific Chest Pain, Adult A MESSAGE TO ALL PATIENTS REGARDING OPIOIDS PRESCRIPTION OPIOIDS: WHAT YOU NEED TO KNOW Prescription opioids can be used to help relieve [id number]-td-sgctmj pain and are often prescribed following a surgery or injury, or for certain health conditions. These medications can be an important part of the treatment but also come with serious risks. It is important to work with your healthcare provider to make sure you are getting the safest, most effective care. WHAT ARE THE RISKS AND SIDE EFFECTS OF OPIOID USE? Prescription opioids carry serious risks of addiction and overdose, especially with prolonged use. An opioid overdose, often marked by slowed breathing, can cause sudden . The use of prescription opioids can have a number of side effects as well, even when taken as directed: ? Tolerance?meaning you might need to take more of the medication for the same pain relief ? Physical dependence?meaning you have symptoms of withdrawal when a medication is stopped ? Increased sensitivity to pain ? Constipation ? Nausea, vomiting, and dry mouth ? Sleepiness and dizziness ? Confusion ? Depression ? Low levels of testosterone that can result in lower sex drive, energy, and strength ? Itching and sweating RISKS ARE GREATER WITH: ? History of drug misuse, substance use disorder, or overdose ? Mental health conditions (such as depression or anxiety) ? Sleep apnea ? Older age (65 years and older) ? Avoid alcohol while taking prescription opioids. Also, unless specifically advised by your health care provider, medications to avoid include: ? Benzodiazepines (such as Xanax or Valium) ? Muscle relaxants (such as Soma or Flexeril) ? Hypnotics (such as Ambien or Lunesta) ? Other prescription opioids KNOW YOUR OPTIONS Talk to your health care provider about ways to manage your pain that don?t involve prescription opioids. Some of these options may actually work better and have fewer risks and side effects. Options may include: ? Pain relievers such as acetaminophen, ibuprofen, and naproxen ? Some medication that are also used for depression or seizures ? Physical therapy and exercise ? Cognitive behavioral therapy, a psychological, goal-directed approach, in which patients learn how to modify physical, behavioral, and emotional triggers of pain and stress. IF YOU ARE PRESCRIBED OPIOIDS FOR PAIN: ? Never take opioids in greater amounts or more often than prescribed. ? Follow up with your primary health care provider. o Work together to create a plan on how to manage your pain. o Talk about ways to help manage your pain that don?t involve prescription opioids. o Talk about any and all concerns and side effects. ? Help prevent misuse and abuse o Never sell or share prescription opioids. o Never use another person?s prescription opioids. ? Store prescription opioids in a secure place and out of reach of others (this may include visitors, children, friends, and family). ? Safely dispose of unused prescription opioids: Find your community drug take-back program or your pharmacy mail-back program, or flush them down the toilet, following guidance from the Food and Drug Administration (www.fda.gov/Drugs/Re sourcesForYou). ? Visit www.cdc.gov/drugoverd ose to learn about the risks of opioids abuse and overdose. ? If you believe you may be struggling with addiction, tell your health healthcare liaison and ask for guidance or call [facility] National Helpline at 4-634-794-LVQE. s Source: US Department of Health and Human Services/Center for Disease Control & Pr (more content not included)... Normal [facility] Troponin 1 Hr.on 03-25-2024 Troponin HS <2.30 Low 10.10-27.1 0 [facility] Comment on above: Result Comment: The 95% CI (Confidence Interval) PPV (Positive Predictive Value) for myocardial infarction in females is 38 pg/mL, in males 51 pg/mL. The results should be used in conjunction with clinical conditions of myocardial infarction. (Access High Sensitivity Troponin I Instructions For Use, Albina Chase, April 2018) Performed By: #### 1 [id number] #### [facility] [address] [place] [address] XR Chest Single Viewon 03-25 XR Chest Single View Exam Date/Time: 03/24/2024 23:25 EDT Reason for Exam: Chest pain Report IMPRESSION: NO RADIOGRAPHIC EVIDENCE OF ACUTE INTRATHORACIC PROCESS. EXAM: XR Chest Single View History: Chest pain Technique: Portable AP view of the chest. Comparison: None available Findings: The cardiomediastinal silhouette is within normal limits. No pneumothorax, pleural effusion, or consolidation. No acute osseous abnormality. Ordering Provider: Tonny Chiu FINAL REPORT Dictated: 03/25/2024 10:07 am Eugene Herrera DO Signed (Electronic Signature): 03/25/2024 10:07 am Signed by: Eugene Herrera DO Transcribed by: NASEEM Technologist: JAMES Technical Comments Radiation Dose: Ka,r in mGy = na DAP = na Normal [facility] BMPon 03-24-2024 Anion gap [Moles/Vol] 10 mmol/L Normal 6-16 [facility] Comment on above: Performed By: #### 2 [id number] #### [facility] [address] [place] [address] Calcium [Mass/Vol] 8.2 mg/dL Low 8.9-11.1 [facility] Comment on above: Performed By: #### 2 [id number] #### [facility] [address] [place] [address] Chloride [Moles/Vol] 112 mmol/L High 101-111 [facility] Comment on above: Performed By: #### 2 [id number] #### [facility] [address] [place] [address] CO2 [Moles/Vol] 20 mmol/L Low 21-31 [facility] Comment on above: Performed By: #### 2 [id number] #### [facility] [address] [place] [address] Creatinine [Mass/Vol] 0.7 mg/dL Normal 0.5-1.3 [facility] Comment on above: Performed By: #### 2 [id number] #### [facility] [address] [place] [address] Glucose [Mass/Vol] 84 mg/dL Normal 55-199 [facility] Comment on above: Performed By: #### 2 [id number] #### [facility] [address] [place] [address] Potassium [Moles/Vol] 3.8 mmol/L Normal 3.5-5.3 [facility] Comment on above: Performed By: #### 2 [id number] #### [facility] [address] [place] [address] Sodium [Moles/Vol] 138 mmol/L Normal 135-145 [facility] Comment on above: Performed By: #### 2 [id number] #### [facility] [address] [place] [address] Urea nitrogen [Mass/Vol] 13 mg/dL Normal 5-21 [facility] Comment on above: Performed By: #### 2 [id number] #### [facility] [address] [place] [address] Urea nitrogen/Creatinine [Mass ratio] 19 No Units Normal 10-20 [facility] Comment on above: Performed By: #### 2 [id number] #### [facility] [address] [place] [address] CBC w/ Auto Diffon 4 Basophils/100 WBC (Bld) 1.6 % Normal 0.0-2.0 [facility] Comment on above: Performed By: #### 2 [id number] #### [facility] [address] [place] [address] Basophils/Leukocytes Auto (Bld) [Pure # fraction] 0.2 E9/L Normal 0.0-0.2 [facility] Comment on above: Performed By: #### 2 [id number] #### [facility] [address] [place] [address] Eosinophils (Bld) [#/Vol] 0.9 E9/L High 0.0-0.5 [facility] Comment on above: Performed By: #### 2 [id number] #### [facility] [address] [place] [address] Eosinophils/100 WBC (Bld) 8.4 % High 0.0-8.0 [facility] Comment on above: Performed By: #### 2 [id number] #### [facility] [address] [place] [address] Erythrocyte distribution width (RBC) [Ratio] 15.6 % High 10.9-14.2 [facility] Comment on above: Performed By: #### 2 [id number] #### [facility] [address] [place] [address] Hematocrit (Bld) [Volume fraction] 33.2 % Low 34.0-46.0 [facility] Comment on above: Performed By: #### 2 [id number] #### [facility] [address] [place] [address] Hemoglobin (Bld) [Mass/Vol] 11.1 g/dL Low 12.0-16. 0 [facility] Comment on above: Performed By: #### 2 [id number] #### [facility] [address] [place] [address] Lymphocytes (Bld) [#/Vol] 3.8 E9/L Normal 1.0-4.0 [facility] Comment on above: Performed By: #### 2 [id number] #### [facility] [address] [place] [address] Lymphocytes/100 WBC (Bld) 36.5 % Normal 14.0-50.0 [facility] Comment on above: Performed By: #### 2 [id number] #### [facility] [address] [place] [address] MCH (RBC) [Entitic mass] 28.7 pg Normal 27.0-34.0 [facility] Comment on above: Performed By: #### 2 [id number] #### [facility] [address] [place] [address] MCHC (RBC) [Mass/Vol] 33.4 g/dL Normal 31.4-36.0 [facility] Comment on above: Performed By: #### 2 [id number] #### [facility] [address] [place] [address] MCV (RBC) [Entitic vol] 85.9 fL Normal 80.0-100.0 F [facility] Comment on above: Performed By: #### 2 [id number] #### [facility] [address] [place] [address] Monocytes (Bld) [#/Vol] 0.7 E9/L Normal 0.2-1.0 F [facility] Comment on above: Performed By: #### 2 [id number] #### [facility] [address] [place] [address] Neutrophils (Bld) [#/Vol] 4.8 E9/L Normal 2.0-7.5 [facility] Comment on above: Performed By: #### 2 [id number] #### [facility] [address] [place] [address] Neutrophils/100 WBC (Bld) 46.5 % Normal 36.0-75.0 [facility] Comment on above: Performed By: #### 2 [id number] #### [facility] [address] [place] [address] Platelet mean volume (Bld) [Entitic vol] 7.7 fL Normal 6.4-10.8 [facility] Comment on above: Performed By: #### 2 [id number] #### [facility] [address] [place] [address] Platelets (Bld) [#/Vol] 260.0 E9/L Normal 150. 0-500. 0 [facility] Comment on above: Performed By: #### 2 [id number] #### [facility] [address] [place] [address] RBC (Bld) [#/Vol] 3.9 E12/L Low 4.3-5.9 [facility] Comment on above: Performed By: #### 2 [id number] #### [facility] [address] [place] [address] WBC corrected for nucl RBC Auto (Bld) [#/Vol] 10.3 E9/L Normal 4.0-11.0 [facility] Comment on above: Performed By: #### 2 [id number] #### [facility] [address] [place] [address] PT & PTTon 03-24-2024 aPTT Coag (PPP) [Time] 38.3 second(s) High 25.1-36.5 [facility] Comment on above: Result Comment: Para meter 15 days - 4 weeks 1 - 5 months 6 - 11 months 1 - 5 years 6 - 10 years 11 - 17 years PTT Mean: 35.4 (27.6-45.6) Mean: 33.5 (24.8-40.7) Mean: 32.4 (25.1-40.7) Mean: 31.6 (24.0-39.2) Mean: 31.6 (26.9-38.7) Mean: 31.0 (24.6-38.4) Pediatric Reference ranges were obtained from a study by Brayan Lovett et al. prepared from 1437 samples obtained at 7 different centers using the same coagulation reagent and instrumentation as [facility]. Currently there are no coagulation studies available worldwide for children to 14 days, and no normal ranges. Heparin therapeutic range (represented by Anti-Factor Xa activity of 0.2 - 0.4 U/mL) corresponds to PTT of 56.6 - 109.0 sec. Performed By: #### 1 [id number] #### [facility] [address] [place] [address] INR Coag (PPP) [Relative time] 1.07 {INR} Invalid Interpretation Code [facility] Comment on above: Result Comment: INR results are specifically intended to assess patients stabilized on long-term Anticoagulation therapy suggested INR?s ?Less Intensive Anticoagulation? 2.0 ? 3.0 Conventional Range 3.0 ? 4.5 Performed By: #### 1 [id number] #### [facility] [address] [place] [address] PT Coag (PPP) [Time] 12.0 second(s) Normal 9.4-12.5 [facility] Comment on above: Result Comment: 15 d ays - 4 weeks 1 - 5 months 6 -11 months 1 ? 5 years 6 ? 10 years 11 -17 years Mean: 11.2 (9.5 ? 12.6) Mean: 11.0 (9.7 ? 12.8) Mean: 11.0 (9.8 ? 13.0) Mean: 11.3 (9.9 ? 13.4) Mean: 11.7 (10.0 ? 14.6) Mean: 11.8 (10.0 - 14.1) Pediatric Reference ranges were obtained from a study by Brayan Lovett et al. prepared from 1437 samples obtained at 7 different centers using the same coagulation reagent and instrumentation as [facility]. Currently there are no coagulation studies available worldwide for children to 14 days, and no normal ranges. Performed By: #### 1 [id number] #### [facility] [address] [place] [address] Troponin 0 Hr.on 03-24-2024 Troponin HS 2.70 pg/mL Low 10.10-27.1 0 [facility] Comment on above: Result Comment: The 95% CI (Confidence Interval) PPV (Positive Predictive Value) for myocardial infarction in females is 38 pg/mL, in males 51 pg/mL. The results should be used in conjunction with clinical conditions of myocardial infarction. (Access High Sensitivity Troponin I Instructions For Use, Albina [employer], April 2018) Performed By: #### 1 [id number] #### [facility] [address] [place] [address] eGFRon 03-24-2024 eGFR 99 mL/min/1.73 m2 Normal >=59 [facility] Comment on above: Order Comment: Order added by Discern Expert. Performed By: #### 1 [id number] #### [facility] [address] [place] [address] 36on 03-18-2024 36 I put dispense 50 gm on the prescription, so not sure what the issue si [facility] 36 Forwarding to provider for review and advice. [facility] 36 Name of caller: Junaid Contact phone number: [phone] Relationship to Patient: [facility] Provider: Ronen Raya MD Practice: [facility] Chief Complaint/Reason for Call: Prescription for lidocaine (Xylocaine) 5 % ointment Needs specific Gram amounts for insurance processing. Please advise. Best time of day caller can be reached: Any Patient advised that office/PCP has 24-48 business hours to return their call: N/A Normal [facility] Office Visiton 03-18-2024 Follow-up visit [id number] Georgia Junior 1965 F Date Provider Department Center 03/18/2024 [id number] RAYA [facility] None No family history on file Level of Service:68741 CT OFFICE/OUTPATIENT NEW HIGH MDM 60 MINUTES Reason for Visit and Comments: New Patient [542] Headache [52] Normal [facility] PATINSon 03-18-2024 PATINS The patient is to call and make an appt: [facility] Address: [facility] [place] [address] 2 times per week for 8 weeks 1. Occipital neuralgia right 2. Right TMJ arthralgia She has to see Dr. Rivas for right occipital nerve block Address: [address] [place] [address] Normal [facility] Progress Noteon 03-18-2024 Progress Note [facility] [address] [place] [address] [facility] [address] Dept: [phone] Dept Loc: [phone] Ronen Raya MD Thank you for your kind request for a neurological consultation on this patient. CHIEF COMPLAINT: Chief Complaint Patient presents with New Patient Headache HISTORY OF PRESENT ILLNESS: The patient is a 59 y.o. person who presents with pain that starts in her occiput on the right and refers to her right ear. It does not happen every day. She reports that it was occurring daily for four months. She reports that she was placed on carbamazepine. She reports that it has been once a week. She reports that she received an injection in the TMJ joint area and that did not work. The patient cannot find a trigger. She reports that heat sometimes helps. She reports that she had prior cervical spine surgery. She denies prior history of clenching or grinding of her teeth. She was on amitriptyline and stopped that med about three weeks ago. She is not sure if that is when the occipital neuralgia pain got worse. Past Medical History: has a past medical history of DDD (degenerative disc disease), lumbar and Fibromyalgia. Outside records: Rina Vallejo MD - 07/21/2023 3:30 PM EST Subjective Georgia Junior is a right handed 58 y.o. year old female. Visit type: follow up visit GEORG[place] JUNIOR is here for follow-up. Here for follow up of tremors, felt to be medication induced, in addition has RLS managed by PCP as well as Narcolepsy. Also had tardive dyskinesias however this has fully resolved. At the last visit we started keppra for muscle jerks - presumed to be myoclonic. No side effects from same. She continues to have them - had an episode of muscle jerks that caused her to loose her ice cream. The jerks are quite intermittent, happens maybe once every few weeks. The tremors are more continuous. Has some tremors of both hands with action, notices it mostly when using her phone - dropped it frequently. Narcolepsy is doing better. Is on ritalin for same. Her mouth is dry, but she does not have the mouth movements much anymore, has cut down the promethazine. Walking is good, had a TKR on L leg in May, has done very well. NO recent falls. Mood is good. Memory is so so. At prior visit Latuda caused involuntary movements of the tongue and jaw. Was also on Thorazine in past, as well as promethazine. Remains on Mirapex for her RLS, states that symptoms are not well controlled, but thinks it is mainly due to her tail bone issues. Has pain right in the middle of the coxxyx and buttocks, and goes down the leg. Has never had an EMG done. Patient Active Problem List Diagnosis Abnormality of gait and mobility Active peptic ulcer Anxiety Arthritis of knee Arthritis of right shoulder region Acute lateral meniscus tear of left knee Cervical radiculopathy at C5 Chronic back pain Fibromyalgia Neck pain, chronic Closed fracture of upper end of left fibula Chronic rupture of ACL of left knee Compression fracture of lumbar vertebra (CMS/HCC) Cough variant asthma Contusion of right knee Degenerative arthritis of knee, bilateral Chondromalacia of left patella Diverticulitis Dizziness and giddiness Disorder of sacrum Depression Degenerative scoliosis in adult patient Genu valgum High cholesterol Gastroesophageal reflux disease Syncope Medication-induced movement disorder Loss of consciousness (CMS/HCC) History of trigeminal neuralgia Locking of left knee Myoclonus Tremor Myofascial pain syndrome Narcolepsy Muscle weakness Patellofemoral pain syndrome of left knee Osteopenia Numbness and tingling Presence of right artificial shoulder joint Peripheral polyneuropathy Rotator cuff tear arthropathy of right shoulder Rotator cuff tendonitis, right Skin complaints Restless legs syndrome Muscle spasms of both lower extremities Spondylosis of cervical region without myelopathy or radiculopathy Degenerative disc disease, cervical Tardive dyskinesia Trochanteric bursitis of both hips Past Medical History: Diagnosis Date Personal history of other diseases of the circulatory system History of hypertension Past Surgical History: Procedure Laterality Date OTHER SURGICAL HISTORY 01/17/2015 Anterior Spinal Diskectomy, Osteophytectomy Cerv Interspace OTHER SURGICAL HISTORY 11/21/2018 Shoulder replacement ROTATOR CUFF REPAIR 01/17/2015 Rotator Cuff Repair Social History Socioeconomic History Marital status: Legally Spouse name: Not on file Number of children: Not on file Years of education: Not on file Highest education level: Not on file Occupational History Not on file Tobacco Use Smoking status: Not on file Smokeless tobacco: Not on file Substa (more content not included)... Normal [facility] XR hand LT 2Von 03-11-2024 XR hand LT 2V [facility] Main [place] [address] [place] [address] XRay Report Signed Patient: Georgia Junior MR#: [id number] 278 : 1965 Acct:[id number] Age/Sex: 59 / F ADM Date: 03/11/24 Loc: ER Room: Type: [facility] ER Attending Dr: Copies to: Toy Frances Jr, MD Ordering Provider: Toy Frances Jr, MD Date of Service: 03/11/24 XR/XR hand LT 2V: Fall ([id number]) XR/XR wrist LT min 3V*: Fall LEFT WRIST - 3 views, left hand 2 views CLINICAL HISTORY: Fall onto left hand. Bruising and swelling fourth and fifth metacarpals COMPARISON: None FINDINGS: Left wrist: Mild soft tissue swelling. No acute bony process is seen. Joint spaces appear maintained. No bony erosions. Left hand: Mild soft tissue swelling. A mildly displaced fracture is noted involving the base of the fifth metacarpal. Joint spaces appear maintained. No bony erosions. Bones are grossly demineralized. XR/XR wrist LT min 3V* IMPRESSION: MILDLY DISPLACED FRACTURE BASE OF THE FIFTH METACARPAL. Impression dictated by: Ector Pal Jr., D.O.03/11/2024 8:56 AM Dictation Location: [place] [address] Transcribed By: [facility] 03/11/2456 Dictated By: Ector Pal Jr, DO 03/11/2454 Signed By: 03/11/2456 [facility] C Urineon 02-20-2024 Bacteria identified Cx Nom (U) Microbiology PROCEDURE: Urine Culture [R1] SOURCE: U CleanCatch BODY SITE: COLLECTED DATE/TIME: 02/18/2024 11:30 EDT RECEIVED DATE/TIME: 02/18/2024 14:03 EDT START DATE/TIME: 02/18/2024 14:03 EDT FREE TEXT SOURCE: ALVINA PRYOR PA-C, PA-C, ALVINA Silva FINAL REPORTS Final Report [] Verified Date/Time: 02/20/2024 10:12 EDT >100,000 cfu/ml Escherichia coli SUSCEPTIBILITY RESULTS LEGEND: S=Susceptible, N/R=Not Reported, Blank=Data not available, or drug not advisable or tested, I=Intermediate, ESBL=Extended spectrum beta-lactamase, R=Resistant, TFG=Thymidine-depende nt strain, LAITH=Beta-lactamase positive, KAYLEEN=mcg/m;(mg/L), S*=Predicted susceptible interp, R*=Predicted resistant interp EC Antibiotic KAYLEEN Dilutn KAYLEEN Interp Ampicillin >16 R Ampicillin/ >16/8 R Sulbactam Aztreonam <=4 S Cefazolin 8 S Cefepime <=2 S Ceftazidime <=1 S Ceftazidime/ <=8 S Avibactam Ceftriaxone <=1 S Cefuroxime 8 S Ciprofloxacin 0.5 I Ertapenem <=0.5 S Gentamicin >8 R Levofloxacin <=0.5 S Meropenem <=1 S Nitrofurantoin <=32 S Piperacillin/ <=8 S Tazobactam Tetracycline <=4 S Tobramycin 8 I Trimethoprim/ <=2/38 S Sulfa Performing Locations R1: This test was performed at: [facility], [address] [place] [address], [phone]- , , [facility] Comment on above: Performed By: #### 2 [id number] #### [facility] [address] [place] [address] UA with Cult Rflxon 02-18-20 24 Bacteria Auto Ql (U) 1+ /HPF Abnormal Trace Fish [facility] Comment on above: Performed By: #### 4 [id number] #### [facility] [address] [place] [address] Bilirubin Ql (U) Negative Normal Negative [facility] Comment on above: Performed By: #### 4 [id number] #### [facility] [address] [place] [address] Clarity (U) Turbid Abnormal Clear [facility] Comment on above: Performed By: #### 4 [id number] #### [facility] [address] [place] [address] Color (U) Yellow Normal Yellow [facility] Comment on above: Result Comment: Micr oscopic readings are only performed on those samples that meet specific criteria set forth by [facility]. Performed By: #### 4 [id number] #### [facility] [address] [place] [address] Epithelial cells.squamous Auto (Urine sed) [#/Area] 0-2 Normal 0-2 [facility] Comment on above: Performed By: #### 4 [id number] #### [facility] [address] [place] [address] Glucose Ql (U) Negative Normal Negative [facility] Comment on above: Performed By: #### 4 [id number] #### [facility] [address] [place] [address] Hemoglobin Auto test strip (U) [Mass/Vol] Negative Normal Negative [facility] Comment on above: Performed By: #### 4 [id number] #### [facility] [address] [place] [address] Ketones Auto test strip Ql (U) Negative Normal Negative [facility] Comment on above: Performed By: #### 4 [id number] #### [facility] Laboratory [address] [place] [address] Leukocyte esterase Auto test strip Ql (U) Negative Normal Negative [facility] Comment on above: Performed By: #### 4 [id number] #### [facility] Laboratory [address] [place] [address] Mucus Auto Ql (U) Trace Normal Negative [facility] Comment on above: Performed By: #### 4 [id number] #### [facility] Laboratory [address] [place] [address] Nitrite Auto test strip Ql (U) Negative Normal Negative [facility] Comment on above: Performed By: #### 4 [id number] #### [facility] Laboratory [address] [place] [address] pH (U) 7.0 [pH] Invalid Interpretation Code 5.0-9.0 [facility] Comment on above: Performed By: #### 4 [id number] #### [facility] Laboratory [address] [place] [address] Protein Ql (U) Trace Abnormal Negative [facility] Comment on above: Performed By: #### 4 [id number] #### [facility] Laboratory [address] [place] [address] RBC Ql (U) 0-3 Normal 0-3 [facility] Comment on above: Performed By: #### 4 [id number] #### [facility] Laboratory [address] [place] [address] Specific gravity (U) [Rel density] 1.020 Invalid Interpretation Code 1.005-1.03 0 [facility] Comment on above: Performed By: #### 4 [id number] #### [facility] Laboratory [address] [place] [address] Urobilinogen (U) [Mass/Vol] Negative Normal Negative [facility] Comment on above: Performed By: #### 4 [id number] #### [facility] Laboratory [address] [place] [address] WBC Auto (Urine sed) [#/Area] 6-15 Abnormal 0-5 [facility] Comment on above: Performed By: #### 4 [id number] #### [facility] Laboratory [address] [place] [address] Type of Urine collection method Clean Catch Normal [facility] Comment on above: Performed By: #### 4 [id number] #### [facility] Laboratory [address] [place] [address] Screenson 02-17-2024 Screens [id number]. [id number] Normal [facility] Patient Educationon 02-16-20 24 Patient Education Urology Urethral Stricture Urethral stricture [...] Follow these instructions at home: ? Take xzqj-mxd-xpuesic and prescription medicines only as told by [...] provider. Document Revised: 07/08/2022 Document Reviewed: 07/08/2022 [employer] Patient Education ? 2022 [employer] Isidro Kim [facility] Urology Office/Clinic Noteon 02-16-2024 Urology Office/Clinic Note Chief Complai nt Increased incontinence HPI Staff 59 year old female here for increased incontinence. Previous DX: urethral stricture, mixed incontinence and recurrent UTI. S/P Cysto/UD done 10/06/[address] Granados. Pt. taking Terazosin 5mg QD. Pt. states since having surgery for GERD she has had incontinence. Dysuria: no Incomplete bladder emptying: yes Hematuria: no Frequency: 2-3 hours Urgency: yes Nocturia: no Stream: occasionally weak stream Post void dripping: no Wearing pads/ Depends: yes Urge incontinence: yes Stress incontinence: no Incontinence without Sensory Awareness: no Abdominal pain: no Flank pain: no History of Present Illness staff HPI reviewed and agree. Tests Reviewed: Reviewed UA. Review of Systems PHQ Score Initial Depression Screen Score: 0 SCORE no fever, chills, malaise, myalgia. no rash/lesions. no chest pain, palpitations, or SOB. no abdominal pain, nausea, vomiting. no unilateral calf swelling, redness, pain Physical Exam Vitals & Measurements HT: 61 in HT: 154 cm WT: 87.5 kg WT: 192.5 lb BMI: 36.89 General: nontoxic, NAD Mouth: moist mucosa Lungs: normal respiratory effort Cardio: regular rate, good distal perfusion Abdomen: nondistended, no suprapubic distention or tenderness, no CVA tenderness Neurologic: Grossly normal Skin: No rashes or suspicious lesions Assessment/Plan 1. Mixed incontinence (N39.46: Mixed incontinence) BBS 20 (10). Random scan 62 cc. Pt had GI surgery for GERD on 02/04/24 (cannot find op report on clinisync and pt unsure what was done). Uncertain if she had cath placed but was under general anesthesia and was kept inpt overnight. Has been having worsening incontinence since the procedure. Discussed possibilities, pt likely either has an infection or she might be due for another dilation. -Pt to drop off UA at [facility]. (unable to give sample IO today) tx if cx + -Repeat UD with [facility] if cx is neg and sxs cont. 2. Urethral stricture (N35.12: Postinfective urethral stricture, not elsewhere classified, female) S/p Cysto/UD by Dr. Granados 10/06/22. Taking Terazosin 5 mg QD. was doing well until procedure. see #1. 3. Recurrent UTI (N30.20: Other chronic cystitis without hematuria) Pt unable to provide urine sample today. See #1. Follow-up With When Contact Information SYLWIA WHITTAKER, ALVINA Silva, URL [address] [place] [address] Additional Instructions: [place] [facility] Patient Education Urethral Stricture Documentation recorded by the scribe Delia Fulton accurately reflects the services(s) I performed and decisions made by me. Authenticated by Alvina Pryor PA-C on 02/16/2024 13:33:22. I, Delia Fulton, personally scribed for REKHA Vinson on 02/16/2024 13:24:28. . Problem List/Past Medical History Ongoing Acute [...] mg Cap-DR, Oral, Daily ipratropium Nasal 0.06% [place], 2 spray(s), Nasal, TID methylphenidate 10 mg [...] Allergies Keflex (rash) Latuda (Involuntary movement) Norflex (r (more content not included)... Normal [facility] Comment on above: Result Comment: Elec tronically Signed By: ALVINA PRYOR PA-C\.br\Date and Time Signed: 02/16/24 13:33 EDT\.br\Electronically Co-Signed By: Delia Fulton\.br\Date and Time Co-Signed: 02/16/24 13:25 EDT\.br\Electronically Co-Signed By: Delia Fulton\.br\Date and Time Co-Signed: 02/16/24 13:26 EDT XR CHEST ABDOMEN NG PLACEMEN Ton 02-04-2024 XR CHEST ABDOMEN NG PLACEMENT EXAMINATION: ONE SUPINE XRAY VIEW(S) OF THE ABDOMEN 02/04/2024 11:27 am COMPARISON: None. HISTORY: ORDERING SYSTEM PROVIDED HISTORY: Placement of nasogastric tube TECHNOLOGIST PROVIDED HISTORY: Reason for exam:->Placement of nasogastric tube What reading provider will be dictating this exam?->CRC FINDINGS: The lungs are without acute focal process. There is no effusion or pneumothorax. The cardiomediastinal silhouette is without acute process. The osseous structures are without acute process. Right shoulder arthroplasty. Enteric tube tip in the fundus of the stomach. Lungs and pleural spaces are clear. Normal heart size. IMPRESSION: Enteric tube tip in the fundus of the stomach. Interpreted by: Hebert Iraheta MD Signed by: Hebert Iraheta MD 02/04/24 Final result Normal [facility] XR Chest and Abdomen Viewson 02-04-2024 Enteric tube tip in the fundus of the stomach. [facility] RADIOLOGY EXAMINATION: ONE SUPINE XRAY VIEW(S) OF THE ABDOMEN 02/04/2024 11:27 am COMPARISON: None. HISTORY: ORDERING SYSTEM PROVIDED HISTORY: Placement of nasogastric tube TECHNOLOGIST PROVIDED HISTORY: Reason for exam:->Placement of nasogastric tube What reading provider will be dictating this exam?->CRC FINDINGS: The lungs are without acute focal process. There is no effusion or pneumothorax. The cardiomediastinal silhouette is without acute process. The osseous structures are without acute process. Right shoulder arthroplasty. Enteric tube tip in the fundus of the stomach. Lungs and pleural spaces are clear. Normal heart size. [facility] RADIOLOGY Hebert Iraheta MD - 02/04/2024 EXAMINATION: ONE SUPINE XRAY VIEW(S) OF THE ABDOMEN 02/04/2024 11:27 am COMPARISON: None. HISTORY: ORDERING SYSTEM PROVIDED HISTORY: Placement of nasogastric tube TECHNOLOGIST PROVIDED HISTORY: Reason for exam:->Placement of nasogastric tube What reading provider will be dictating this exam?->CRC FINDINGS: The lungs are without acute focal process. There is no effusion or pneumothorax. The cardiomediastinal silhouette is without acute process. The osseous structures are without acute process. Right shoulder arthroplasty. Enteric tube tip in the fundus of the stomach. Lungs and pleural spaces are clear. Normal heart size. IMPRESSION: Enteric tube tip in the fundus of the stomach. [facility] Radiology Study observation (narrative) [facility] XR Chest and Abdomen ViewsOr dered By: Hebert Iraheta on 02-04-2024 [facility] Work Phone: Basic Metabolic Panelon 01-13 Anion gap [Moles/Vol] 9 mmol/L Normal 9-15 [facility] Comment on above: Performed By: #### B MP #### [facility] [address] [place] [address] Calcium [Mass/Vol] 8.7 mg/dL Normal 8.5-9.9 [facility] Comment on above: Performed By: #### B MP #### [facility] [address] [place] [address] Chloride [Moles/Vol] 109 mmol/L Critically high 95-107 [facility] Comment on above: Performed By: #### B MP #### [facility] [address] [place] [address] CO2 [Moles/Vol] 22 mmol/L Normal 20-31 [facility] Comment on above: Performed By: #### B MP #### [facility] [address] [place] [address] Creatinine [Mass/Vol] 0.80 mg/dL Normal 0.50-0.90 [facility] Comment on above: Performed By: #### B MP #### [facility] [address] [place] [address] GFR 84.8 Normal >60 [facility] Comment on above: Result Comment: Pedi atric calculator link https://www.kidney.org/professionals/kdoqi/gfr_calculator ped Effective Jun 16, 2022 These results are not intended for use in patients <18 years of age. eGFR results are calculated without a race factor using the 2020 CKD-EPI equation. Careful clinical correlation is recommended, particularly when comparing to results calculated using previous equations. The CKD-EPI equation is less accurate in patients with extremes of muscle mass, extra-renal metabolism of creatinine, excessive creatinine ingestion, or following therapy that affects renal tubular secretion. Performed By: #### B MP #### [facility] [address] [place] [address] Glucose [Mass/Vol] 140 mg/dL Critically high 70-99 [facility] Comment on above: Performed By: #### B MP #### [facility] [address] [place] [address] Potassium [Moles/Vol] 4.0 mmol/L Normal 3.4-4.9 [facility] Comment on above: Performed By: #### B MP #### [facility] [address] [place] [address] Sodium [Moles/Vol] 140 mmol/L Normal 135-144 [facility] Comment on above: Performed By: #### B MP #### [facility] [address] [place] [address] Urea nitrogen [Mass/Vol] 16 mg/dL Normal 6-20 [facility] Comment on above: Performed By: #### B MP #### [facility] [address] [place] [address] CBC With Platelet No Differe ntialon 02-03-2024 Erythrocyte distribution width (RBC) [Ratio] 14.1 % Normal 11.5-14.5 [facility] Comment on above: Performed By: #### C BCND #### [facility] [address] [place] [address] Hematocrit (Bld) [Volume fraction] 35.0 % Low 37.0-47.0 [facility] Comment on above: Performed By: #### C BCND #### [facility] [address] [place] [address] Hemoglobin (Bld) [Mass/Vol] 11.2 g/dL Low 12.0-16. 0 [facility] Comment on above: Performed By: #### C BCND #### [facility] [address] [place] [address] MCH (RBC) [Entitic mass] 28.9 pg Normal 27.0-31.3 [facility] Comment on above: Performed By: #### C BCND #### [facility] [address] [place] [address] MCHC 32.0 % Low 33.0-37.0 [facility] Comment on above: Performed By: #### C BCND #### [facility] [address] [place] [address] MCV (RBC) [Entitic vol] 90.4 fL Normal 79.4-94.8 [facility] Comment on above: Performed By: #### C BCND #### [facility] [address] [place] [address] Platelets (Bld) [#/Vol] 275 10*3/uL Normal 130-400 [facility] Comment on above: Performed By: #### C BCND #### [facility] [address] [place] [address] RBC (Bld) [#/Vol] 3.87 10*6/uL Low 4.20-5.40 [facility] Comment on above: Performed By: #### C BCND #### [facility] [address] [place] [address] WBC (Bld) [#/Vol] 10.0 10*3/uL Normal 4.8-10.8 [facility] Comment on above: Performed By: #### C BCND #### [facility] [address] [place] [address] MR KNEE RT WO CONTon 024 MR KNEE RT WO CONT MR KNEE RT WO CONT MR KNEE RT WO CONT HISTORY: Chondrocalcinosis of the right knee. Contusion of the right knee. Pain. COMPARISON: Radiographs of the right knee dated 09/03/2022 TECHNIQUE: ?Multisequence, multiplanar MR images of the knee were obtained. FINDINGS: MENISCI * Medial meniscus: Oblique tear of the posterior horn (series 13, images 7-8). * Lateral meniscus: Radial tear of the posterior horn (series 13, images 21-23). LIGAMENTS * Medial collateral ligament: Superficial and deep components intact. * Lateral collateral ligament complex: Intact. * Anterior cruciate ligament: Intact. * Posterior cruciate ligament: Intact. EXTENSOR MECHANISM * Quadriceps and patellar tendons: Intact. * Patella: Appropriately positioned within the femoral groove. * Retinaculum: No medial or lateral retinacular disruption. FLUID * Moderate joint effusion. * Large, lobulated Peacock's cyst measuring 4.9 cm in craniocaudal dimension. OSSEOUS and ARTICULAR STRUCTURES * No fracture or aggressive osseous lesion. * Spurring of the tibial spines. Tricompartmental osteophyte formation. * Patellofemoral compartment: No focal defects of the articular cartilage. * Medial compartment: Diffuse thinning and mild irregularity of the femoral cartilage without focal defect. * Lateral compartment: No focal defects of the articular cartilage. IMPRESSION: 1. Radial tear of the posterior horn of the lateral meniscus. 2. Oblique tear of the posterior horn of the medial meniscus. 3. Large, lobulated Peacock cyst measures 4.9 cm in craniocaudal dimension. 4. Moderate joint effusion. Approved by Resident Kristian Harris MD on 02/03/2024 10:34 AM I, Haris Moyer MD have personally reviewed the image(s) and agree with and/or edited the report Finalized by Haris Moyer MD on 02/03/2024 11:21 AM Normal [facility] Type and Screen Capture 3 sc rn cellon 02-03-2024 Type and Screen Capture 3 scrn cell PATIENT: SANDI BASILIO LOC: [facility] BILL# : [id number] : 1965 SEX: F ORDERED BY: AUBREY CAVAZOS ORDERED : 02/03/2024 14:02 COLLECTED: 02/03/2024 14:22 ORDER : [id number] RECEIVED : 02/03/2024 14:22 Confirmation type needs to be drawn. 02/03/24 15:34 Kevan Whalen TEST NAME RESULT UNITS RANGES ABN FL ST ABORH Capture O POS F Antibody 3 Cell Scrn Captu NEG F Normal [facility] Comment on above: Performed By: #### T S3C #### [facility] [address] [place] [address] Automated basophil %Ordered By: Bam Burgos on 01-22-2024 Basophils/100 WBC (Bld) 0.5 % Normal . [facility] Comment on above: Performed By: #### C BC, BMP ####[facility] [id number] [place] [address] [facility] [[email or web address]] Automated basophil countOrde red By: Jasob Robke on 01-22-2024 Basophils (Bld) [#/Vol] 0.1 10*3/uL Normal 0.0-0.2 [facility] Comment on above: Result Comment: PERF ORMED BY: [facility] [address] [place] [address] PATHOLOGIST SUPERVISOR [employer] DIANA CAMPO M.D. Performed By: #### C BC, BMP ####[address] Automated blood monocyte cou ntOrdered By: Jasob Robke on 01-22-2024 Monocytes (Bld) [#/Vol] 0.7 10*3/uL Normal 0.0-0.8 [facility] Comment on above: Performed By: #### C BC, BMP ####[address] Automated eosinophil %Ordere d By: Jasob Robke on 01-22-2024 Eosinophils/100 WBC (Bld) 4.1 % Normal . [facility] Comment on above: Performed By: #### C BC, BMP ####[address] Automated eosinophil countOr dered By: Jasob Robke on 01-22-2024 Eosinophils (Bld) [#/Vol] 0.4 10*3/uL Normal 0.0-0.45 [facility] Comment on above: Performed By: #### C BC, BMP ####[address] Automated monocyte %Ordered By: Jasob Robke on 01-22-2024 Monocytes/100 WBC (Bld) 6.7 % Normal . F [facility] Comment on above: Performed By: #### C BC, BMP ####[address] Automated neutrophil %Ordere d By: Jasob Robke on 01-22-2024 Neutrophils/100 WBC (Bld) 59.3 % Normal . [facility] Comment on above: Performed By: #### C BC, BMP ####[address] [address] [facility] [[email or web address]] Basic Metabolic Panelon 01-12 GFR/1.73 sq M.predicted MDRD (S/P/Bld) [Vol rate/Area] mL/min/{1.73_m2} Normal [facility] Comment on above: Performed By: #### C BC, BMP ####[place] [id number] [facility] [[email or web address]] Calcium [Mass/volume] in Ser um or PlasmaOrdered By: Randysokari Burgos on 01-22-2024 Calcium [Mass/Vol] 8.9 mg/dL Normal 8.6-10.3 [facility] Comment on above: Result Comment: PERF ORMED BY: [facility] [address] [facility] [place] [id number] PATHOLOGIST SUPERVISOR [employer] DIANA CAMPO M.D. Performed By: #### C BC, BMP ####[place] [id number] [facility] [[email or web address]] Carbon dioxide, total [Moles /volume] in Serum or PlasmaOrdered By: Randysokari Burgos on 01-22-2024 CO2 [Moles/Vol] 25.2 mmol/L Normal 21.0-31.0 [facility] Comment on above: Performed By: #### C BC, BMP ####[place] [id number] [facility] [[email or web address]] Chloride [Moles/volume] in S fallon or PlasmaOrdered By: Randysokari Burgos on 01-22-2024 Chloride [Moles/Vol] 106 mmol/L Normal 98-107 [facility] Comment on above: Performed By: #### C BC, BMP ####[place] [id number] [facility] [[email or web address]] Complete Blood Count Auto Di ffon 01-22-2024 Mean Corpuscular HGB Conc 32.7 g/dL Normal 32.0-35.0 [facility] Comment on above: Performed By: #### C BC, BMP ####[facility] [id number] NRBC% 0.0 /100{WBC} Normal 0-0.5 [facility] Comment on above: Performed By: #### C SHILO, BMP ####[facility] Creatinine [Mass/volume] in Serum or PlasmaOrdered By: Bam Burgos on 01-22-2024 Creatinine [Mass/Vol] 0.88 mg/dL Normal 0.60-1.20 [facility] Comment on above: Performed By: #### C SHILO, BMP ####[place] [id number] ECG 12 lead ECGon 01-22-2024 ECG 12 lead ECG [facility] Main [place] [address] [place] [address] Electrocardiograph Report Signed Patient: Georgia Junior MR#: [id number] : 1965 Acct:[id number] Age/Sex: 58 / F ADM Date: 01/22/24 Loc: Room: Type: [facility] Attending Dr: Jose Manuel Burgos MD Ordering Provider: Bam Burgos MD Date of Service: 01/22/2407/07/957 ECG/ECG 12 lead ECG: pst Copies to: Test Reason : Blood Pressure : / mmHG Vent. Rate : 073 BPM Atrial Rate : 073 BPM P-R Int : 174 ms QRS Dur : 084 ms QT Int : 384 ms P-R-T Axes : 052 030 033 degrees QTc Int : 423 ms Normal sinus rhythm Normal ECG When compared with ECG of 09-JAN-2023 12:54, No significant change was found Confirmed by [facility], ALBERT ([id number]) on 01/22/2024 12:24:33 PM Referred By: AUBREY Electronically Signed By:ALBERT CAAL MD [facility] Transcribed By: MUS Signed By Albert Caal MD, FACC 01/22/24 1224 Normal [facility] Erythrocyte distribution wid th [Ratio] by Automated countOrdered By: Bam Burgos on 01-22-2024 Erythrocyte distribution width (RBC) [Ratio] 14.8 % Normal 11.9-15.3 [facility] Comment on above: Performed By: #### C SHILO, BMP ####[place] [address] [place] [id number] [facility] [[email or web address]] Erythrocytes [#/volume] in B lood by Automated countOrdered By: Bam Burgos on 01-22-2024 RBC (Bld) [#/Vol] 4.03 10*6/uL Normal 3.60-5.00 [facility] Comment on above: Performed By: #### C SHILO, BMP ####[place] [address] [place] [id number] [facility] [[email or web address]] Glucose [Mass/volume] in Ser um or PlasmaOrdered By: Bam Burgos on 01-22-2024 Glucose [Mass/Vol] 99 mg/dL Normal 70-100 [facility] Comment on above: ADA recommended refe rence rangeRandom Glucose Reference Range is dependent on time and content of last meal. Glucose of more than 200 mg/dL in a nonstressed, ambulatory subject supports the diagnosis of Diabetes Mellitus. Result Comment: [place] om Glucose Reference Range is dependent on time and content of last meal. Glucose of more than 200 mg/dL in a nonstressed, ambulatory subject supports the diagnosis of Diabetes Mellitus. ADA recommended reference range Performed By: #### C SHILO, BMP ####[place] [address] [place] [address] [facility] [[email or web address]] Hematocrit [Volume Fraction] of Blood by Automated countOrdered By: Bam Burgos on 01-22-2024 Hematocrit (Bld) [Volume fraction] 35.4 % Normal 34.0-46.4 [facility] Comment on above: Performed By: #### C SHILO, BMP ####[place] [id number] [facility] [[email or web address]] Hemoglobin [Mass/volume] in BloodOrdered By: Bam Burgos on 01-22-2024 Hemoglobin (Bld) [Mass/Vol] 11.6 g/dL Low 11.8-15. 4 [facility] Comment on above: Performed By: #### C SHILO, BMP ####[address] Leukocytes [#/volume] correc gabriel for nucleated erythrocytes in Blood by Automated counOrdered By: Ranydsokari Burgos on 01-22-2024 WBC corrected for nucl RBC Auto (Bld) [#/Vol] 10.3 10*3/uL 3.8-11.6 [facility] Leukocytes [#/volume] in Blo od by Automated countOrdered By: Randysob Aubrey on 01-22-2024 WBC (Bld) [#/Vol] 10.3 10*3/uL Normal 3.8-11.6 [facility] Comment on above: Performed By: #### C SHILO, BMP ####[address] Lymphocytes [#/volume] in Bl ood by Automated countOrdered By: Bam Burgos on 01-22-2024 Lymphocytes (Bld) [#/Vol] 3.0 10*3/uL Normal 1.00-4.8 [facility] Comment on above: Performed By: #### C SHILO, BMP ####[address] Lymphocytes/100 leukocytes i n Blood by Automated countOrdered By: Bam Burgos on 01-22-2024 Lymphocytes/100 WBC (Bld) 29.4 % Normal . [facility] Comment on above: Performed By: #### C SHILO, BMP ####[address] MCH [Entitic mass] by Automa gabriel countOrdered By: Bam Burgos on 01-22-2024 MCH (RBC) [Entitic mass] 28.7 pg Normal 24.7-34.3 [facility] Comment on above: Performed By: #### C SHILO, BMP ####[address] MCHC Auto (RBC) [Mass/Vol]Or dered By: Randysob Aubrey on 01-22-2024 MCHC (RBC) [Mass/Vol] 32.7 g/dL 32.0-35.0 [facility] MCV [Entitic volume] by Auto mated countOrdered By: Bam Burgos on 01-22-2024 MCV (RBC) [Entitic vol] 87.9 fL Normal 80-100 [facility] Comment on above: Performed By: #### C SHILO, JANE ####[place] [address] [place] [id number] [facility] [[email or web address]] Neutrophils [#/volume] in Bl ood by Automated countOrdered By: Bam Burgos on 01-22-2024 Neutrophils (Bld) [#/Vol] 6.1 10*3/uL Normal 1.8-7.7 [facility] Comment on above: Performed By: #### C SHILO, BMP ####[place] [id number] No Panel InformationOrdered By: Bam Burgos on 01-22-2024 Estimated GFR (CKD-EPI) > 60.0 mL/Min [facility] Creatinine Clearance (Chem N/A [facility] Nucleated erythrocytes [Pres ence] in Blood by Automated countOrdered By: Bam Burgos on 01-22-2024 Nucleated RBC Auto Ql (Bld) 0.0 /100{WBC} 0-0.5 [facility] PST Type and Screenon 2023 ABO and Rh group Nom (Bld) Blood group O Rh(D) positive Normal [facility] Comment on above: Order Comment: Date of Surgery: [id number] Platelet mean volume [Entiti c volume] in Blood by Automated countOrdered By: Bam Burgos on 01-22-2024 Platelet mean volume (Bld) [Entitic vol] 7.6 fL Normal 6.3-10.7 [facility] Comment on above: Performed By: #### C SHILO, BMP ####[place] [id number] [place] [id number] [facility] [[email or web address]] Platelets [#/volume] in Bloo d by Automated countOrdered By: Bam Burgos on 01-22-2024 Platelets (Bld) [#/Vol] 310 10*3/uL Normal 150-450 [facility] Comment on above: Performed By: #### C BC, BMP ####[address] [address] [facility] [[email or web address]] Potassium [Moles/volume] in Serum or PlasmaOrdered By: Jasob Robke on 01-22-2024 Potassium [Moles/Vol] 4.4 mmol/L Normal 3.5-5.1 [facility] Comment on above: Performed By: #### C BC, BMP ####[address] [address] [facility] [[email or web address]] Serum or plasma anion gap de terminationOrdered By: Jasob Robke on 01-22-2024 Anion gap [Moles/Vol] 13.2 mmol/L Normal 6.0-15.0 [facility] Comment on above: Performed By: #### C BC, BMP ####[address] [address] [facility] [[email or web address]] Sodium [Moles/volume] in Ser um or PlasmaOrdered By: Jasob Robke on 01-22-2024 Sodium [Moles/Vol] 140 mmol/L Normal 136-145 [facility] Comment on above: Performed By: #### C BC, BMP ####[address] [address] [facility] [[email or web address]] Urea nitrogen [Mass/volume] in Serum or PlasmaOrdered By: Randysob Aubrey on 01-22-2024 Urea nitrogen [Mass/Vol] 16 mg/dL Normal 7-25 [facility] Comment on above: Performed By: #### C BC, BMP ####[address] [address] [place] Alanine aminotransferase [En zymatic activity/volume] in Serum or PlasmaOrdered By: Cristian Prasad on 12-22-2023 ALT [Catalytic activity/Vol] 10 U/L Normal 7-52 [facility] Comment on above: Performed By: #### C BC, LIPID, CMP, LDLD ####[place] [address] [place] [address] [place] Albumin [Mass/volume] in Ser um or Plasma by Bromocresol green (BCG) dye binding methoOrdered By: Cristian Prasad on 12-22-2023 Albumin BCG dye [Mass/Vol] 3.9 g/dL 3.5-5.7 [facility] Alkaline phosphatase [Enzyma tic activity/volume] in Serum or PlasmaOrdered By: Cristian Prasad on 12-22-2023 ALP [Catalytic activity/Vol] 89 U/L Normal 34-104 [facility] Comment on above: Performed By: #### C BC, LIPID, CMP, LDLD ####[address] Aspartate aminotransferase [ Enzymatic activity/volume] in Serum or PlasmaOrdered By: Cristian Prasad on 12-22-2023 AST [Catalytic activity/Vol] 10 U/L Low 13-39 [facility] Comment on above: Performed By: #### C BC, LIPID, CMP, LDLD ####[address] Automated basophil %Ordered By: Cristian Prasad on 12-22-2023 Basophils/100 WBC (Bld) 0.7 % Normal . [facility] Comment on above: Performed By: #### C BC, LIPID, CMP, LDLD ####[address] Automated basophil countOrde red By: Cristian Prasad on 12-22-2023 Basophils (Bld) [#/Vol] 0.1 10*3/uL Normal 0.0-0.2 [facility] Comment on above: Result Comment: PERF ORMED BY: [facility] [address] [place] [address] PATHOLOGIST SUPER[employer] [place] DIANA CAMPO M.D. Performed By: #### C BC, LIPID, CMP, LDLD ####[address] Automated blood monocyte cou ntOrdered By: Cristian Prasad on 12-22-2023 Monocytes (Bld) [#/Vol] 0.6 10*3/uL Normal 0.0-0.8 [facility] Comment on above: Performed By: #### C BC, LIPID, CMP, LDLD ####[address] Automated eosinophil %Ordere d By: Cristian Prasad on 12-22-2023 Eosinophils/100 WBC (Bld) 1.9 % Normal . [facility] Comment on above: Performed By: #### C BC, LIPID, CMP, LDLD ####[place] [id number] [facility] [[email or web address]] Automated eosinophil countOr dered By: Cristian Prasad on 12-22-2023 Eosinophils (Bld) [#/Vol] 0.2 10*3/uL Normal 0.0-0.45 [facility] Comment on above: Performed By: #### C BC, LIPID, CMP, LDLD ####[address] Automated monocyte %Ordered By: Cristian Prasad on 12-22-2023 Monocytes/100 WBC (Bld) 6.6 % Normal . [facility] Comment on above: Performed By: #### C BC, LIPID, CMP, LDLD ####[address] Automated neutrophil %Ordere d By: Cristian Prasad on 12-22-2023 Neutrophils/100 WBC (Bld) 62.9 % Normal . [facility] Comment on above: Performed By: #### C BC, LIPID, CMP, LDLD ####[address] Bilirubin.total [Mass/volume ] in Serum or PlasmaOrdered By: Cristian Prasad on 12-22-2023 Bilirubin [Mass/Vol] 0.4 mg/dL Normal 0.3-1.0 [facility] Comment on above: Performed By: #### C BC, LIPID, CMP, LDLD ####[address] Calcium [Mass/volume] in Ser um or PlasmaOrdered By: Cristian Prasad on 12-22-2023 Calcium [Mass/Vol] 8.6 mg/dL Normal 8.6-10.3 [facility] Comment on above: Performed By: #### C BC, LIPID, CMP, LDLD ####[facility] [place] [id number] [facility] [[email or web address]] Carbon dioxide, total [Moles /volume] in Serum or PlasmaOrdered By: Cristian Prasad on 12-22-2023 CO2 [Moles/Vol] 19.7 mmol/L Low 21.0-31.0 [facility] Comment on above: Performed By: #### C BC, LIPID, CMP, LDLD ####[address] Chloride [Moles/volume] in S fallon or PlasmaOrdered By: Cristian Prasad on 12-22-2023 Chloride [Moles/Vol] 111 mmol/L High 98-107 [facility] Comment on above: Performed By: #### C BC, LIPID, CMP, LDLD ####[place] [id number] [facility] [[email or web address]] Cholesterol [Mass/volume] in Serum or PlasmaOrdered By: Cristian Prasad on 12-22-2023 Cholesterol [Mass/Vol] 142 mg/dL Normal 140-200 [facility] Comment on above: Chol less than 200 m g/dl low riskChol 201-239 mg/dl borderline riskChol 240 mg/dl and greater high risk Result Comment: Chol less than 200 mg/dl low risk Chol 201-239 mg/dl borderline risk Chol 240 mg/dl and greater high risk Performed By: #### C BC, LIPID, CMP, LDLD ####[place] [phone] [facility] [[email or web address]] Cholesterol in LDL Calc [Mas s/Vol]Ordered By: Cristian Prasad on 12-22-2023 Cholesterol in LDL [Mass/Vol] 60 mg/dL 0-100 [facility] Comment on above: LDL ATP III CLASSIFI CATIONLDL less than 100 mg/dL OptimalLDL 100-129 mg/dL Near or above optimalLDL 130-159 mg/dL Borderline highLDL 160-189 mg/dL HighLDL greater than 189 mg/dL Very high Cholesterol in LDL [Mass/vol ume] in Serum or PlasmaOrdered By: Cristian Prasad on 12-22-2023 Cholesterol in LDL [Mass/Vol] 74 mg/dL 0-100 [facility] Comment on above: LDL ATP III CLASSIFI CATIONLDL less than 100 mg/dL OptimalLDL 100-129 mg/dL Near or above optimalLDL 130-159 mg/dL Borderline highLDL 160-189 mg/dL HighLDL greater than 189 mg/dL Very high Cholesterol in VLDL Calc [Ma ss/Vol]Ordered By: Cristian Prasad on 12-22-2023 Cholesterol in VLDL [Mass/Vol] 37 mg/dL [facility] Complete Blood Count Auto Di ffon 12-22-2023 Mean Corpuscular HGB Conc 32.5 g/dL Normal 32.0-35.0 [facility] Comment on above: Performed By: #### C BC, LIPID, CMP, LDLD ####[place] [id number] NRBC% 0.0 /100{WBC} Normal 0-0.5 [facility] Comment on above: Performed By: #### C BC, LIPID, CMP, LDLD ####[address] Comprehensive Metabolic Pane ernesto 12-22-2023 Albumin [Mass/Vol] 3.9 g/dL Normal 3.5-5.7 [facility] Comment on above: Performed By: #### C BC, LIPID, CMP, LDLD ####[address] GFR/1.73 sq M.predicted MDRD (S/P/Bld) [Vol rate/Area] mL/min/{1.73_m2} Normal [facility] Comment on above: Performed By: #### C BC, LIPID, CMP, LDLD ####[address] Creatinine [Mass/volume] in Serum or PlasmaOrdered By: Cristian Prasad on 12-22-2023 Creatinine [Mass/Vol] 0.81 mg/dL Normal 0.60-1.20 [facility] Comment on above: Performed By: #### C BC, LIPID, CMP, LDLD ####[address] Erythrocyte distribution wid th [Ratio] by Automated countOrdered By: Cristian Prasad on 12-22-2023 Erythrocyte distribution width (RBC) [Ratio] 15.5 % High 11.9-15.3 [facility] Comment on above: Performed By: #### C BC, LIPID, CMP, LDLD ####[address] Erythrocytes [#/volume] in B lood by Automated countOrdered By: Cristian Prasad on 12-22-2023 RBC (Bld) [#/Vol] 3.95 10*6/uL Normal 3.60-5.00 [facility] Comment on above: Performed By: #### C BC, LIPID, CMP, LDLD ####[place] [id number] Glucose [Mass/volume] in Ser um or PlasmaOrdered By: Cristian Prasad on 12-22-2023 Glucose [Mass/Vol] 78 mg/dL Normal 70-100 [facility] Comment on above: ADA recommended refe rence rangeRandom Glucose Reference Range is dependent on time and content of last meal. Glucose of more than 200 mg/dL in a nonstressed, ambulatory subject supports the diagnosis of Diabetes Mellitus. Result Comment: [place] om Glucose Reference Range is dependent on time and content of last meal. Glucose of more than 200 mg/dL in a nonstressed, ambulatory subject supports the diagnosis of Diabetes Mellitus. ADA recommended reference range Performed By: #### C BC, LIPID, CMP, LDLD ####[place] [id number] [facility] [[email or web address]] Hematocrit [Volume Fraction] of Blood by Automated countOrdered By: Cristian Prasad on 12-22-2023 Hematocrit (Bld) [Volume fraction] 34.4 % Normal 34.0-46.4 [facility] Comment on above: Performed By: #### C BC, LIPID, CMP, LDLD ####[place] [id number] [facility] [[email or web address]] Hemoglobin [Mass/volume] in BloodOrdered By: Cristian Prasad on 12-22-2023 Hemoglobin (Bld) [Mass/Vol] 11.2 g/dL Low 11.8-15. 4 [facility] Comment on above: Performed By: #### C BC, LIPID, CMP, LDLD ####[place] [address] [place] [phone] [facility] [[email or web address]] LDL Cholesterol Measuredon 0 12-22-2023 LDL Cholesterol Measured 74 mg/dL Normal 0-100 [facility] Comment on above: Result Comment: LDL ATP III CLASSIFICATION LDL less than 100 mg/dL Optimal LDL 100-129 mg/dL Near or above optimal LDL 130-159 mg/dL Borderline high LDL 160-189 mg/dL High LDL greater than 189 mg/dL Very high PERFORMED BY: [facility] [address] [place] [address] PATHOLOGIST SUPERVIS[employer] [place] DIANA CAMPO M.D. Performed By: #### C BC, LIPID, CMP, LDLD ####[place] [address] Leukocytes [#/volume] correc gabriel for nucleated erythrocytes in Blood by Automated counOrdered By: Cristian Prasad on 12-22-2023 WBC corrected for nucl RBC Auto (Bld) [#/Vol] 9.6 10*3/uL 3.8-11.6 [facility] Leukocytes [#/volume] in Blo od by Automated countOrdered By: Cristian Prasad on 12-22-2023 WBC (Bld) [#/Vol] 9.6 10*3/uL Normal 3.8-11.6 [facility] Comment on above: Performed By: #### C BC, LIPID, CMP, LDLD ####[place] [address] [place] [phone] [facility] [[email or web address]] Lipid Panelon 12-22-2023 LDL Cholesterol,Calculated 60 mg/dL Normal 0-100 [facility] Comment on above: Result Comment: LDL ATP III CLASSIFICATION LDL less than 100 mg/dL Optimal LDL 100-129 mg/dL Near or above optimal LDL 130-159 mg/dL Borderline high LDL 160-189 mg/dL High LDL greater than 189 mg/dL Very high Performed By: #### C BC, LIPID, CMP, LDLD ####[place] [address] [place] [phone] [facility] [[email or web address]] Triglyceride w/Reflex 189 mg/dL High 0-149 [facility] Comment on above: Result Comment: TRIG ATP III CLASSIFICATION TRIG less than 150 mg/dL Normal TRIG 150-199 mg/dL Borderline high TRIG 200-500 mg/dL High TRIG greater than 500 mg/dL Very high Standard traceable to the Center for Disease Conrtrol and Prevention (CDC) test method. Performed By: #### C BC, LIPID, CMP, LDLD ####[address] VLDL CHOLESTEROL 37 mg/dL Normal [facility] Comment on above: Performed By: #### C BC, LIPID, CMP, LDLD ####[address] Lymphocytes [#/volume] in Bl ood by Automated countOrdered By: Cristian Prasad on 12-22-2023 Lymphocytes (Bld) [#/Vol] 2.7 10*3/uL Normal 1.00-4.8 [facility] Comment on above: Performed By: #### C BC, LIPID, CMP, LDLD ####[address] Lymphocytes/100 leukocytes i n Blood by Automated countOrdered By: Cristian Prasad on 12-22-2023 Lymphocytes/100 WBC (Bld) 27.9 % Normal . [facility] Comment on above: Performed By: #### C BC, LIPID, CMP, LDLD ####[address] MCH [Entitic mass] by Automa gabriel countOrdered By: Cristian Prasad on 12-22-2023 MCH (RBC) [Entitic mass] 28.3 pg Normal 24.7-34.3 [facility] Comment on above: Performed By: #### C BC, LIPID, CMP, LDLD ####[address] MCHC Auto (RBC) [Mass/Vol]Or dered By: Cristian Prasad on 12-22-2023 MCHC (RBC) [Mass/Vol] 32.5 g/dL 32.0-35.0 [facility] MCV [Entitic volume] by Auto mated countOrdered By: Cristian Prasad on 12-22-2023 MCV (RBC) [Entitic vol] 87.1 fL Normal 80-100 [facility] Comment on above: Performed By: #### C BC, LIPID, CMP, LDLD ####[place] [id number] Neutrophils [#/volume] in Bl ood by Automated countOrdered By: Cristian Prasad on 12-22-2023 Neutrophils (Bld) [#/Vol] 6.0 10*3/uL Normal 1.8-7.7 [facility] Comment on above: Performed By: #### C BC, LIPID, CMP, LDLD ####[address] No Panel InformationOrdered By: Cristian Prasad on 12-22-2023 Estimated GFR (CKD-EPI) > 60.0 mL/Min [facility] Creatinine Clearance (Chem N/A [facility] Nucleated erythrocytes [Pres ence] in Blood by Automated countOrdered By: Cristian Prasad on 12-22-2023 Nucleated RBC Auto Ql (Bld) 0.0 /100{WBC} 0-0.5 [facility] Platelet mean volume [Entiti c volume] in Blood by Automated countOrdered By: Cristian Prasad on 12-22-2023 Platelet mean volume (Bld) [Entitic vol] 8.8 fL Normal 6.3-10.7 [facility] Comment on above: Performed By: #### C BC, LIPID, CMP, LDLD ####[address] Platelets [#/volume] in Bloo d by Automated countOrdered By: Cristian Prasad on 12-22-2023 Platelets (Bld) [#/Vol] 279 10*3/uL Normal 150-450 [facility] Comment on above: Performed By: #### C BC, LIPID, CMP, LDLD ####[address] Potassium [Moles/volume] in Serum or PlasmaOrdered By: Cristian Prasad on 12-22-2023 Potassium [Moles/Vol] 4.2 mmol/L Normal 3.5-5.1 [facility] Comment on above: Performed By: #### C BC, LIPID, CMP, LDLD ####[place] [id number] Protein [Mass/volume] in Ser um or PlasmaOrdered By: Cristian Prasad on 12-22-2023 Protein [Mass/Vol] 5.7 g/dL Low 6.4-8.9 [facility] Comment on above: Performed By: #### C BC, LIPID, CMP, LDLD ####[place] [id number] Serum globulin measurement b y calculation (mass/volume)Ordered By: Cristian Prasad on 12-22-2023 Globulin (S) [Mass/Vol] 1.8 g/dL Normal [facility] Comment on above: Performed By: #### C BC, LIPID, CMP, LDLD ####[address] Serum or plasma albumin/glob ulin mass ratioOrdered By: Cristian Prasad on 12-22-2023 Albumin/Globulin [Mass ratio] 2.2 {ratio} Normal [facility] Comment on above: Performed By: #### C BC, LIPID, CMP, LDLD ####[address] Serum or plasma anion gap de terminationOrdered By: Cristian Prasad on 12-22-2023 Anion gap [Moles/Vol] 11.5 mmol/L Normal 6.0-15.0 [facility] Comment on above: Performed By: #### C BC, LIPID, CMP, LDLD ####[address] Serum or plasma high density lipoprotein (HDL) cholesterol measurementOrdered By: Cristian Prasad on 12-22-2023 Cholesterol in HDL [Mass/Vol] 44 mg/dL Normal 23-92 [facility] Comment on above: HDL CHOL ATP-III CLA SSIFICATION Cardiovascular RiskHDL > or equal to 60 mg/dL LOWHDL < 40 mg/dL HIGH Result Comment: HDL CHOL ATP-III CLASSIFICATION Cardiovascular Risk HDL > or equal to 60 mg/dL LOW HDL < 40 mg/dL HIGH Performed By: #### C BC, LIPID, CMP, LDLD ####[place] [id number] Serum or plasma total choles terol/high density lipoprotein (HDL) cholesterol mass ratOrdered By: Cristian Prasad on 12-22-2023 Cholesterol.total/Cholestero l in HDL [Mass ratio] 3.2 {ratio} Normal <5.0 [facility] Comment on above: Performed By: #### C BC, LIPID, CMP, LDLD ####[place] [id number] Sodium [Moles/volume] in Ser um or PlasmaOrdered By: Cristian Prasad on 12-22-2023 Sodium [Moles/Vol] 138 mmol/L Normal 136-145 [facility] Comment on above: Performed By: #### C BC, LIPID, CMP, LDLD ####[address] Triglyceride [Mass/volume] i n Serum or PlasmaOrdered By: Cristian Prasad on 12-22-2023 Triglyceride [Mass/Vol] 189 mg/dL High 0-149 [facility] Comment on above: TRIG ATP III CLASSIF ICATIONTRIG less than 150 mg/dL NormalTRIG 150-199 mg/dL Borderline highTRIG 200-500 mg/dL High TRIG greater than 500 mg/dL Very highStandard traceable to the Center for Disease Conrtrol and Prevention (CDC) test method. Urea nitrogen [Mass/volume] in Serum or PlasmaOrdered By: Cristian Prasad on 12-22-2023 Urea nitrogen [Mass/Vol] 17 mg/dL Normal 7-25 [facility] Comment on above: Performed By: #### C BC, LIPID, CMP, LDLD ####[address] XR knee RT 4V*on 12-15-2023 XR knee RT 4V* [facility] [address] [place] [address] [place] [address] XRay Report Signed Patient: Georgia Junior MR#: [id number] : 1965 Acct:[id number] Age/Sex: 58 / F ADM Date: 12/15/23 Loc: XD [facility]: [facility]: Bridgette RODRIGUEZ DO Copies to: Jean/PreceptorBridgette DO, RES Ordering Provider: Cristian Prasad DO, RES Date of Service: 12/15/23 XR/XR knee RT 4V*: Injury of right knee, initial encounter RIGHT KNEE - 4 views CLINICAL HISTORY: Right knee pain for 7 days. Fall. COMPARISON: Right knee series 09/03/2022 FINDINGS: Mild soft tissue swelling. Calcified loose body involving the posterior joint space. Mild degenerative changes with chondrocalcinosis of the menisci. No acute bony process. XR/XR knee RT 4V* IMPRESSION: MILD SOFT TISSUE SWELLING AND DEGENERATIVE CHANGES. NO ACUTE BONY PROCESS. Impression dictated by: Ector Pal Jr., D.OCristal12/15/2023 6:00 PM Dictation Location: [facility] Transcribed By: [facility] 12/15/23 1800 Dictated By: Ector Pal Jr, DO 12/15/23 1757 Signed By: 12/15/23 1800 Normal [facility] Ge 12-09-2023 Esophagogastroduodenoscopy Table formatt ing from the original result was not included. Impression The cricopharynx, upper third of the esophagus, middle third of the esophagus, lower third of the esophagus and GE junction appeared normal. One polyp measuring 5-9 mm in the antrum; removed by ESD but did not retrieve specimen; placed 2 clips successfully The duodenal bulb and 2nd part of the duodenum appeared normal. Findings The cricopharynx, upper third of the esophagus, middle third of the esophagus, lower third of the esophagus and GE junction appeared normal. One flat polyp measuring 5-9 mm in the antrum; removed en bloc by ESD but did not retrieve specimen. Margins of the lesion were inspected prior to procedure. ESD was performed via circumferential incision technique with a hot snare; placed 2 clips successfully (clips are MRI conditional). Hybrid ESD method was performed The duodenal bulb and 2nd part of the duodenum appeared normal. Recommendation Await pathology results Indication Carcinoid tumor of stomach, unspecified whether malignant Staff Staff Role Obi Silvestre MD Proceduralist Medications See Anesthesia Record. Preprocedure A history and physical has been performed, and patient medication allergies have been reviewed. The patient's tolerance of previous anesthesia has been reviewed. The risks and benefits of the procedure and the sedation options and risks were discussed with the patient . All questions were answered and informed consent obtained. Details of the Procedure The patient underwent monitored anesthesia care, which was administered by an anesthesia professional. The patient's blood pressure, ECG, ETCO2, heart rate, level of consciousness, oxygen and respirations were monitored throughout the procedure. The scope was introduced through the mouth and advanced to the second part of the duodenum. Retroflexion was performed in the cardia. Prior to the procedure, the patient's H. Pylori status was unknown. The patient experienced no blood loss. The procedure was not difficult. The patient tolerated the procedure well. There were no apparent adverse events. Events Procedure Events Event Event Time ENDO SCOPE IN TIME 12/09/2023 11:44 AM ENDO SCOPE OUT TIME 12/09/2023 12:02 PM Specimens ID Type Source Tests Collected by Time 1 : Tissue STOMACH ANTRUM POLYPECTOMY SURGICAL PATHOLOGY EXAM Obi Silvestre MD 12/09/2023 1152 2 : hybrid ESD, polypectomy edge Tissue STOMACH ANTRUM BIOPSY SURGICAL PATHOLOGY EXAM Obi Silvestre MD 12/09/2023 [address] [facility] [id number] [place] [id number] Referring Provider Matti Newsome MD [address] [place] [id number] Procedure Provider Obi Silvestre MD [facility] Comment on above: Order Comment: Suppo rting clinical information from referral: EGD Study observation Narrat iveon 12-09-2023 Table formatting fro m the original result was not included. Impression The cricopharynx, upper third of the esophagus, middle third of the esophagus, lower third of the esophagus and GE junction appeared normal. One polyp measuring 5-9 mm in the antrum; removed by ESD but did not retrieve specimen; placed 2 clips successfully The duodenal bulb and 2nd part of the duodenum appeared normal. Findings The cricopharynx, upper third of the esophagus, middle third of the esophagus, lower third of the esophagus and GE junction appeared normal. One flat polyp measuring 5-9 mm in the antrum; removed en bloc by ESD but did not retrieve specimen. Margins of the lesion were inspected prior to procedure. ESD was performed via circumferential incision technique with a hot snare; placed 2 clips successfully (clips are MRI conditional). Hybrid ESD method was performed The duodenal bulb and 2nd part of the duodenum appeared normal. Recommendation Await pathology results Indication Carcinoid tumor of stomach, unspecified whether malignant Staff Staff Role Obi Silvestre MD Proceduralist Medications See Anesthesia Record. Preprocedure A history and physical has been performed, and patient medication allergies have been reviewed. The patient's tolerance of previous anesthesia has been reviewed. The risks and benefits of the procedure and the sedation options and risks were discussed with the patient . All questions were answered and informed consent obtained. Details of the Procedure The patient underwent monitored anesthesia care, which was administered by an anesthesia professional. The patient's blood pressure, ECG, ETCO2, heart rate, level of consciousness, oxygen and respirations were monitored throughout the procedure. The scope was introduced through the mouth and advanced to the second part of the duodenum. Retroflexion was performed in the cardia. Prior to the procedure, the patient's H. Pylori status was unknown. The patient experienced no blood loss. The procedure was not difficult. The patient tolerated the procedure well. There were no apparent adverse events. Events Procedure Events Event Event Time ENDO SCOPE IN TIME 12/09/2023 11:44 AM ENDO SCOPE OUT TIME 12/09/2023 12:02 PM Specimens ID Type Source Tests Collected by Time 1 : Tissue STOMACH ANTRUM POLYPECTOMY SURGICAL PATHOLOGY EXAM Obi Silvestre MD 12/09/2023 1152 2 : hybrid ESD, polypectomy edge Tissue STOMACH ANTRUM BIOPSY SURGICAL PATHOLOGY EXAM Obi Silvestre MD 12/09/2023 [address] [facility] [address] [facility] [address] Referring Provider Matti Newsome MD [address] [address] Procedure Provider Obi Silvestre MD [facility] Work Phone: [facility] Work Phone: Radiology Study observation (narrative) [facility] Work Phone: Surgical pathology studyon 0 12-09-2023 Surgical pathology study Pathology report.total SEE COMMENT Surgical Pathology Case: [id number] Authorizing Provider: Obi Silvestre MD Collected: 12/09/2023 1152 Ordering Location: [facility] Received: 12/09/2023 1258 Pathologist: Elvie Rider MD Specimens: A) - STOMACH ANTRUM POLYPECTOMY, Flat polyp B) - COLON - ENDOSCOPIC MUCOSAL RESECTION, hybrid ESD, polypectomy edge Path report.final diagnosis SEE COMMENT A. Stomach, antrum, polyp, endoscopic submucosal dissection: Hyperplastic polyp. Multiple levels were examined. B. Stomach, polypectomy edge, excision: Antral mucosa with no diagnostic alteration. Laboratory comment By the signature on this report, the individual or group listed as making the Final Interpretation/Diagno sis certifies that they have reviewed this case. Path report.relevant Hx Carcinoid tumor of stomach, unspecified whether malignant [D3A.092] Path report.gross observation SEE COMMENT A: Received in formalin, labeled with the patient's name and hospital number, is a polypoid segment of griffith, soft tissue measuring 1.0 x 0.6 x 0.4 cm. The lines of resection are inked and the polyp is trisected. The specimen is entirely submitted in 2 cassettes. [facility] Summary of Cassettes: Specimen Label Site A 1 #1 polyp line of resection 2 #1 polyp sides B: Received in formalin, labeled with the patient's name and hospital number and hybrid ESD, polypectomy , is a fragment of griffith, soft tissue measuring 0.3 x 0.3 x 0.1 cm. The specimen is submitted in toto in one cassette. EDNA Normal [facility] Alanine aminotransferase [En zymatic activity/volume] in Serum or PlasmaOrdered By: Raymond Hector on 11-29-2023 ALT [Catalytic activity/Vol] 9 U/L Normal 7-52 [facility] Comment on above: Performed By: #### B MP, HEPATIC, LIPASE, CBC #### [facility] [address] [place] [address] Albumin [Mass/volume] in Ser um or Plasma by Bromocresol green (BCG) dye binding methoOrdered By: Raymond Hector on 11-29-2023 Albumin BCG dye [Mass/Vol] 4.2 g/dL 3.5-5.7 [facility] Alkaline phosphatase [Enzyma tic activity/volume] in Serum or PlasmaOrdered By: Raymond Hector on 11-29-2023 ALP [Catalytic activity/Vol] 117 U/L High 34-104 [facility] Comment on above: Performed By: #### B MP, HEPATIC, LIPASE, CBC #### [facility] [address] [place] [address] Aspartate aminotransferase [ Enzymatic activity/volume] in Serum or PlasmaOrdered By: Raymond Hector on 11-29-2023 AST [Catalytic activity/Vol] 12 U/L Low 13-39 [facility] Comment on above: Performed By: #### B MP, HEPATIC, LIPASE, CBC #### [facility] [address] [place] [address] Automated basophil %Ordered By: Raymond Hector on 11-29-2023 Basophils/100 WBC (Bld) 1.1 % Normal . [facility] Comment on above: Performed By: #### B MP, HEPATIC, LIPASE, CBC #### [facility] [address] [place] [address] Automated basophil countOrde red By: Raymond Hector on 11-29-2023 Basophils (Bld) [#/Vol] 0.1 10*3/uL Normal 0.0-0.2 [facility] Comment on above: Result Comment: PERF ORMED BY: [place] [address] PATHOLOGIST SUPERVISOR [employer] DIANA CAMPO M.D. Performed By: #### B MP, HEPATIC, LIPASE, CBC #### [facility] [address] [place] [address] Automated blood monocyte cou ntOrdered By: Raymond Hector on 11-29-2023 Monocytes (Bld) [#/Vol] 0.6 10*3/uL Normal 0.0-0.8 [facility] Comment on above: Performed By: #### B MP, HEPATIC, LIPASE, CBC #### [address] Automated eosinophil %Ordere d By: Raymond Hector on 11-29-2023 Eosinophils/100 WBC (Bld) 1.7 % Normal . [facility] Comment on above: Performed By: #### B MP, HEPATIC, LIPASE, CBC #### [address] Automated eosinophil countOr dered By: Raymond Hector on 11-29-2023 Eosinophils (Bld) [#/Vol] 0.1 10*3/uL Normal 0.0-0.45 [facility] Comment on above: Performed By: #### B MP, HEPATIC, LIPASE, CBC #### [address] Automated monocyte %Ordered By: Raymond Hector on 11-29-2023 Monocytes/100 WBC (Bld) 12.3 % Normal . [facility] Comment on above: Performed By: #### B MP, HEPATIC, LIPASE, CBC #### [address] Automated neutrophil %Ordere d By: Raymond Hector on 11-29-2023 Neutrophils/100 WBC (Bld) 59.2 % Normal . [facility] Comment on above: Performed By: #### B MP, HEPATIC, LIPASE, CBC #### [address] Basic Metabolic Panelon 11-12 Creatinine Clr Calc Pharmacy 74.49 Normal [facility] Comment on above: Performed By: #### B MP, HEPATIC, LIPASE, CBC #### [address] GFR/1.73 sq M.predicted MDRD (S/P/Bld) [Vol rate/Area] mL/min/{1.73_m2} Normal [facility] Comment on above: Performed By: #### B MP, HEPATIC, LIPASE, CBC #### [address] Bilirubin.direct [Mass/volum e] in Serum or PlasmaOrdered By: Raymond Hector on 11-29-2023 Bilirubin.direct [Mass/Vol] 0.00 mg/dL 0.03-0.1 8 [facility] Comment on above: If the DBIL is less than 0.1, IBIL is not able to becalculated. Bilirubin.total [Mass/volume ] in Serum or PlasmaOrdered By: Raymond Hector on 11-29-2023 Bilirubin [Mass/Vol] 0.3 mg/dL Normal 0.3-1.0 [facility] Comment on above: Performed By: #### B MP, HEPATIC, LIPASE, CBC #### [facility] [address] COVID CepheidOrdered By: Al Hector on 11-29-2023 SARS-CoV-2 (COVID-19) Ab IA Ql Negative Negative [facility] Comment on above: This is a duplicate Cepheid Xpert Xpress CoV-2/Flu/RSV Plus RNA by RT-PCR result to be used for statistical tracking purpose only. SARS-CoV-2 (COVID-19) RNA ROBERT+probe Ql (Unsp spec) [facility] COVID-19 / Flu A/B / RSV PCR on 11-29-2023 SARS-CoV-2 (COVID-19) RNA ROBERT+probe Ql (Unsp spec) COVID-19 Cepheid Result Negative for SARS-CoV-2 RNA by RT-PCR Flu A Cepheid Result Negative for Flu A RNA by RT-PCR Flu B Cepheid Result Negative for Flu B RNA by RT-PCR RSV Cepheid Result Negative for RSV RNA by RT-PCR COVID19 Blank Space Reference: Negative COVID19 Blank Space Cepheid Disclaimer The Cepheid Xpert Xpress CoV-2/Flu/RSV Plus has Cepheid Disclaimer not been FDA cleared or approved; this test has Cepheid Disclaimer been authorized by FDA under an EUA for use by Cepheid Disclaimer authorized laboratories; this test has been Cepheid Disclaimer authorized only for the simultaneous qualitative Cepheid Disclaimer detection and differentiation of nucleic acids from Cepheid Disclaimer SARS-CoV-2, influenza A, influenza B, and Cepheid Disclaimer respiratory syncytial virus (RSV), and not for any Cepheid Disclaimer other viruses or pathogens; and this test is only Cepheid Disclaimer authorized for the duration of the declaration that Cepheid Disclaimer circumstances exist justifying the authorization of Cepheid Disclaimer emergency use of in vitro diagnostic tests for Cepheid Disclaimer detection and/or diagnosis of COVID-19 under Cepheid Disclaimer Section 564(b)(1) of the Act, 21 U.S.C. 360bbb- Cepheid Disclaimer 3(b)(1), unless the authorization is terminated or Cepheid Disclaimer revoked sooner. PERFORMED BY: [place] [address] PATHOLOGIST SUPERVISOR [employer] DIANA CAMPO M.D. Normal [facility] Comment on above: Performed By: #### C EPHEID NEG, COVID19 FLU RSV #### [address] Calcium [Mass/volume] in Ser um or PlasmaOrdered By: Raymond Hector on 11-29-2023 Calcium [Mass/Vol] 8.8 mg/dL Normal 8.6-10.3 [facility] Comment on above: Performed By: #### B MP, HEPATIC, LIPASE, CBC #### [address] Carbon dioxide, total [Moles /volume] in Serum or PlasmaOrdered By: Raymond Hector on 11-29-2023 CO2 [Moles/Vol] 24.1 mmol/L Normal 21.0-31.0 [facility] Comment on above: Performed By: #### B MP, HEPATIC, LIPASE, CBC #### [address] Cepheid COVID PCR Negativeon 11-29-2023 SARS-CoV-2 (COVID-19) RNA ROBERT+probe Ql (Unsp spec) Negative Normal Negative [facility] Comment on above: Result Comment: This is a duplicate Cepheid Xpert Xpress CoV-2/Flu/RSV Plus RNA by RT-PCR result to be used for statistical tracking purpose only. PERFORMED BY: [place] [address] PATHOLOGIST SUPERVISOR [employer] DIANA CAMPO M.D. Performed By: #### C EPHEID NEG, COVID19 FLU RSV #### [address] Chloride [Moles/volume] in S fallon or PlasmaOrdered By: Raymond Hector on 11-29-2023 Chloride [Moles/Vol] 108 mmol/L High 98-107 [facility] Comment on above: Performed By: #### B MP, HEPATIC, LIPASE, CBC #### [address] Complete Blood Count Auto Di ffon 11-29-2023 Mean Corpuscular HGB Conc 32.9 g/dL Normal 32.0-35.0 [facility] Comment on above: Performed By: #### B MP, HEPATIC, LIPASE, CBC #### [address] Monocytes/100 WBC (Bld) 18.63 % Normal 0.00-20.00 [facility] Comment on above: Performed By: #### B MP, HEPATIC, LIPASE, CBC #### [address] NRBC% 0.1 /100{WBC} Normal 0-0.5 [facility] Comment on above: Performed By: #### B MP, HEPATIC, LIPASE, CBC #### [address] Creatinine [Mass/volume] in Serum or PlasmaOrdered By: Raymond Hector on 11-29-2023 Creatinine [Mass/Vol] 0.84 mg/dL Normal 0.60-1.20 [facility] Comment on above: Performed By: #### B MP, HEPATIC, LIPASE, CBC #### [facility] [address] Erythrocyte distribution wid th [Ratio] by Automated countOrdered By: Raymond Hector on 11-29-2023 Erythrocyte distribution width (RBC) [Ratio] 15.9 % High 11.9-15.3 [facility] Comment on above: Performed By: #### B MP, HEPATIC, LIPASE, CBC #### [facility] [address] Erythrocytes [#/volume] in B lood by Automated countOrdered By: Raymond Hector on 11-29-2023 RBC (Bld) [#/Vol] 4.63 10*6/uL Normal 3.60-5.00 [facility] Comment on above: Performed By: #### B MP, HEPATIC, LIPASE, CBC #### [facility] [address] Glucose [Mass/volume] in Ser um or PlasmaOrdered By: Raymond Hector on 11-29-2023 Glucose [Mass/Vol] 106 mg/dL High 70-100 [facility] Comment on above: ADA recommended refe rence rangeRandom Glucose Reference Range is dependent on time and content of last meal. Glucose of more than 200 mg/dL in a nonstressed, ambulatory subject supports the diagnosis of Diabetes Mellitus. Result Comment: [place] om Glucose Reference Range is dependent on time and content of last meal. Glucose of more than 200 mg/dL in a nonstressed, ambulatory subject supports the diagnosis of Diabetes Mellitus. ADA recommended reference range Performed By: #### B MP, HEPATIC, LIPASE, CBC #### [facility] [address] Hematocrit [Volume Fraction] of Blood by Automated countOrdered By: Raymond Hector on 11-29-2023 Hematocrit (Bld) [Volume fraction] 39.5 % Normal 34.0-46.4 [facility] Comment on above: Performed By: #### B MP, HEPATIC, LIPASE, CBC #### [facility] [address] Hemoglobin [Mass/volume] in BloodOrdered By: Raymond Hector on 11-29-2023 Hemoglobin (Bld) [Mass/Vol] 13.0 g/dL Normal 11.8-15. 4 [facility] Comment on above: Performed By: #### B MP, HEPATIC, LIPASE, CBC #### [facility] [address] Hepatic Panelon 11-29-2023 Albumin [Mass/Vol] 4.2 g/dL Normal 3.5-5.7 [facility] Comment on above: Performed By: #### B MP, HEPATIC, LIPASE, CBC #### [facility] [address] Bilirubin,Indirect 0.3 mg/dL Normal [facility] Comment on above: Performed By: #### B MP, HEPATIC, LIPASE, CBC #### [facility] [address] Bilirubin.indirect [Mass/Vol] 0.00 mg/dL Low 0.03-0.18 [facility] Comment on above: Result Comment: If t he DBIL is less than 0.1, IBIL is not able to be calculated. Performed By: #### B MP, HEPATIC, LIPASE, CBC #### [facility] [address] Leukocytes [#/volume] correc gabriel for nucleated erythrocytes in Blood by Automated counOrdered By: Raymond Hector on 11-29-2023 WBC corrected for nucl RBC Auto (Bld) [#/Vol] 5.2 10*3/uL 3.8-11.6 [facility] Leukocytes [#/volume] in Blo od by Automated countOrdered By: Raymond Hector on 11-29-2023 WBC (Bld) [#/Vol] 5.2 10*3/uL Normal 3.8-11.6 [facility] Comment on above: Performed By: #### B MP, HEPATIC, LIPASE, CBC #### [facility] [address] Lipase [Enzymatic activity/v olume] in Serum or PlasmaOrdered By: Raymond Hector on 11-29-2023 Lipase [Catalytic activity/Vol] 18.0 U/L Normal 11.0-82.0 [facility] Comment on above: Result Comment: PERF ORMED BY: [place] [address] PATHOLOGIST SUPERVISOR [employer] DIANA CAMPO M.D. Performed By: #### B MP, HEPATIC, LIPASE, CBC ####[facility] [id number] Lymphocytes [#/volume] in Bl ood by Automated countOrdered By: Raymond Hector on 11-29-2023 Lymphocytes (Bld) [#/Vol] 1.3 10*3/uL Normal 1.00-4.8 [facility] Comment on above: Performed By: #### B MP, HEPATIC, LIPASE, CBC #### [address] Lymphocytes/100 leukocytes i n Blood by Automated countOrdered By: Raymond Hector on 11-29-2023 Lymphocytes/100 WBC (Bld) 25.7 % Normal . [facility] Comment on above: Performed By: #### B MP, HEPATIC, LIPASE, CBC #### [facility] [address] [place] [address] MCH [Entitic mass] by Automa gabriel countOrdered By: Raymond Hector on 11-29-2023 MCH (RBC) [Entitic mass] 28.0 pg Normal 24.7-34.3 [facility] Comment on above: Performed By: #### B MP, HEPATIC, LIPASE, CBC #### [address] MCHC Auto (RBC) [Mass/Vol]Or dered By: Raymond Hector on 11-29-2023 MCHC (RBC) [Mass/Vol] 32.9 g/dL 32.0-35.0 [facility] MCV [Entitic volume] by Auto mated countOrdered By: Raymond Hector on 11-29-2023 MCV (RBC) [Entitic vol] 85.2 fL Normal 80-100 [facility] Comment on above: Performed By: #### B MP, HEPATIC, LIPASE, CBC #### [facility] [address] Monocyte distribution width [Entitic volume] in Blood by AutomatedOrdered By: Raymond Hector on 11-29-2023 Monocyte distribution width Auto (Bld) [Entitic vol] 18.63 % 0.00-20.00 [facility] Neutrophils [#/volume] in Bl ood by Automated countOrdered By: Raymond Hectro on 11-29-2023 Neutrophils (Bld) [#/Vol] 3.1 10*3/uL Normal 1.8-7.7 [facility] Comment on above: Performed By: #### B MP, HEPATIC, LIPASE, CBC #### [facility] [address] [place] [address] No Panel InformationOrdered By: Raymond Hector on 11-29-2023 Estimated GFR (CKD-EPI) > 60.0 mL/Min [facility] Creatinine Clearance (Chem 74.49 [facility] Nucleated erythrocytes [Pres ence] in Blood by Automated countOrdered By: Raymond Hector on 11-29-2023 Nucleated RBC Auto Ql (Bld) 0.1 /100{WBC} 0-0.5 [facility] Platelet mean volume [Entiti c volume] in Blood by Automated countOrdered By: Raymond Hector on 11-29-2023 Platelet mean volume (Bld) [Entitic vol] 7.8 fL Normal 6.3-10.7 [facility] Comment on above: Performed By: #### B MP, HEPATIC, LIPASE, CBC #### [facility] [address] [place] [address] Platelets [#/volume] in Bloo d by Automated countOrdered By: Raymond Hector on 11-29-2023 Platelets (Bld) [#/Vol] 245 10*3/uL Normal 150-450 [facility] Comment on above: Performed By: #### B MP, HEPATIC, LIPASE, CBC #### [facility] [address] [place] [address] Potassium [Moles/volume] in Serum or PlasmaOrdered By: Raymond Hector on 11-29-2023 Potassium [Moles/Vol] 3.8 mmol/L Normal 3.5-5.1 [facility] Comment on above: Performed By: #### B MP, HEPATIC, LIPASE, CBC #### [facility] [address] [place] [address] Protein [Mass/volume] in Ser um or PlasmaOrdered By: Raymond Hector on 11-29-2023 Protein [Mass/Vol] 6.9 g/dL Normal 6.4-8.9 [facility] Comment on above: Performed By: #### B MP, HEPATIC, LIPASE, CBC #### [address] Serum globulin measurement b y calculation (mass/volume)Ordered By: Raymond Hector on 11-29-2023 Globulin (S) [Mass/Vol] 2.7 g/dL Normal F [facility] Comment on above: Performed By: #### B MP, HEPATIC, LIPASE, CBC #### [facility] [address] [place] [address] Serum or plasma albumin/glob ulin mass ratioOrdered By: Raymond Hector on 11-29-2023 Albumin/Globulin [Mass ratio] 1.6 {ratio} Normal [facility] Comment on above: Performed By: #### B MP, HEPATIC, LIPASE, CBC #### [facility] [address] [place] [address] Serum or plasma anion gap de terminationOrdered By: Raymond Hector on 11-29-2023 Anion gap [Moles/Vol] 10.7 mmol/L Normal 6.0-15.0 [facility] Comment on above: Performed By: #### B MP, HEPATIC, LIPASE, CBC #### [address] Serum or plasma non-glucuron idated bilirubin measurement (mass/volume)Ordered By: Raymond Hector on 11-29-2023 Bilirubin.indirect [Mass/Vol] 0.3 mg/dL [facility] Sodium [Moles/volume] in Ser um or PlasmaOrdered By: Raymond Hector on 11-29-2023 Sodium [Moles/Vol] 139 mmol/L Normal 136-145 [facility] Comment on above: Performed By: #### B MP, HEPATIC, LIPASE, CBC #### [facility] [address] Urea nitrogen [Mass/volume] in Serum or PlasmaOrdered By: Raymond Hector on 11-29-2023 Urea nitrogen [Mass/Vol] 9 mg/dL Normal 7-25 [facility] Comment on above: Performed By: #### B MP, HEPATIC, LIPASE, CBC #### [facility] [address] SURGICAL PATHOLOGY REFERENCE LAB CONSULTon 11-03-2023 CASE REPORT Normal [facility] Comment on above: Order Comment: Speci men Type: FORMALIN-FIXED PARAFFIN-EMBEDDED TISSUE SPECIMEN Ordering Facility: [facility] Address: [address] [place], [place] [id number] Result Comment: Surg ical Pathology Report Case: [id number] Authorizing Provider: Cl Ruggiero MD Collected: 11/03/2023 09:19 AM Ordering Location: [facility] Received: 11/03/2023 09:16 AM [facility] Pathologist: Raymond Quach MD Specimen: SLIDE(S), 8 SLIDES ([id number]) Performed By: #### L [id number] #### [facility] CLIA [id number] [address] [place] [address] [place] CLINICAL HISTORY CONSULT REQUESTED [facility] on [facility]: Order Comment: Speci men Type: FORMALIN-FIXED PARAFFIN-EMBEDDED TISSUE SPECIMEN Ordering Facility: [facility] Address: [address] [place], [place] [id number] Performed By: #### L [id number] #### [facility] CLIA [id number] [address] [place] [address] OF [place] DIAGNOSIS COMMENT Normal [facility] Comment on above: Order Comment: Speci men Type: FORMALIN-FIXED PARAFFIN-EMBEDDED TISSUE SPECIMEN Ordering Facility: [facility] Address: [address] [place], [place] [phone] Result Comment: Jay k you for allowing us the opportunity to review this case in consultation representing duodenum, stomach and esophageal biopsies from this 58-year-old female patient with a history of heartburn and dyspepsia. No additional history has been provided. Histologic sections from the stomach antrum biopsy (Part B) demonstrate a single fragment of gastric antral-type mucosa with a nested proliferation of epithelioid cells with round central nuclei and evenly distributed nuclear chromatin. Nucleoli and mitotic activity are inconspicuous. Provided synaptophysin stain highlights this proliferation of epithelioid cells. There is no evidence of intestinal metaplasia or dysplasia. 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 Neuroendocrine hyperplasia can be seen in a number of clinical settings, including as a reparative process in chronic mucosal injury, in patients on proton pump inhibitors, and in autoimmune metaplastic atrophic gastritis. Correlation with endoscopic findings is essential. The current biopsy does not demonstrate intestinal metaplasia. However, if there is clinical concern for an autoimmune metaplastic atrophic gastritis, biopsies from the gastric body would be recommended. Histologic sections from the esophagus (Part C) demonstrate hyperplastic squamous mucosa with intraepithelial neutrophils. The provided GMS stain is negative for fungal organisms. Additional immunohistochemical stains for CMV and HSV 1/2 may be performed. There is no increase in intraepithelial eosinophils. There is no evidence of squamous epithelial dysplasia. Columnar epithelium is negative for intestinal metaplasia or dysplasia. Thank you for sending this case in consultation. Please do not hesitate to contact us at [phone] with questions or if additional follow-up information becomes available. This case was reviewed in conjunction with the GI pathology fellow, Mehul Webb M.D. Performed By: #### L [id number] #### [facility] CLIA [id number] [address] [place] [address] [place] FINAL DIAGNOSIS Normal [facility] Comment on above: Order Comment: Speci men Type: FORMALIN-FIXED PARAFFIN-EMBEDDED TISSUE SPECIMEN Ordering Facility: [facility] Address: [address] [place] [id number] Result Comment: 1. D uodenum, biopsy (A1): - Duodenal mucosa with no significant diagnostic alteration. 2. Stomach, antrum, biopsy (B1): - Gastric antral-type mucosa with neuroendocrine hyperplasia. - Negative for intestinal metaplasia or dysplasia. - No morphologic evidence of Helicobacter pylori microorganisms on routine H&E stain. - See comment. 3. Esophagus, biopsy (C1): - Active esophagitis. - See comment. JRG/MS 11/03/2023 Performed By: #### L [id number] #### [facility] CLIA [id number] [address] [place] [address] FINAL PERFORMING LAB Normal [facility] Comment on above: Order Comment: Speci men Type: FORMALIN-FIXED PARAFFIN-EMBEDDED TISSUE SPECIMEN Ordering Facility: [facility] Address: [address] [place], [place] [id number] Result Comment: Diag nostic interpretation performed at [place] [address] CLIA# [id number] Esl Tutor: Dony Rausch M.D. Performed By: #### L [id number] #### [facility] CLIA [id number] [address] [place] [address] Ernesto 10-27-2023 L Specimen: [id number] Received: 10/27/23 Status: SONAL Moise Num: [id number] Spec Type: Surgical Subm Dr: Matti Newsome MD Tissues: A Duodenum - Biopsy (DUOD BX) B Stomach - Biopsy/Polyp (ANTRM BX) C Esophagus Biopsy (ESO BX) Procedures: SYNAP, HE/6, Gross/Micro L4/3, GMS II Dark Age/ Patient Sex Location Account Attending Physician Georgia Junior 58/F [id number] Matti Newsome MD SPEC NUM: [id number] RECD: 10/27/23 STATUS: THIAleksander MOISE NUM: [id number] LAURA: 10/27/23- SUBM DR: Matti Newsome MD ENTERED: 10/27/23 [facility] DR: SPEC TYPE: Surgical DEPT: S ENTERED BY: [id number] RECV BY: [id number] ORDERED: SYNAP, HE/6, Gross/Micro L4/3, GMS II Dark ORDERED: MINE, HE/6, Gross/Micro L4/3, GMS II Dark Supplemental Report Addendum 1 Entered: 11/04/23-3258 Supplemental for findings of consultation report from [facility]: A, Duodenal biopsy: -Duodenal mucosa with no significant diagnostic alteration B, Stomach antrum biopsy: -Gastric antral type mucosa with neuroendocrine hyperplasia -Negative for intestinal metaplasia or dysplasia -No morphologic evidence of Helicobacter pylori microorganisms on routine H E stain C, Esophagus biopsy: -Active esophagitis Note: -Please also see entire report on file for detailed descriptions -------- Specimen: [id number] Received: 10/27/23-1221 Status: SONAL Geraldo Num: [id number] Spec Type: Surgical Subm Dr: Matti Newsome MD Tissues: A Duodenum - Biopsy (DUOD BX) B Stomach - Biopsy/Polyp (ANTRM BX) C Esophagus Biopsy (ESO BX) Procedures: YAN BLOUNT/6, Gross/Micro L4/3, GMS II Dark -------- Patient: Georgia Junior [id number] (Continued) -------- Specimen: [id number] Received: 10/27/23 (Continued) Supplemental Report (Continued) Signed (signature on file) Nathanael Gonzalez MD 10/29/23 1106 -------- Specimen: [id number] Received: 10/27/23 Status: SONAL Moise Num: [id number] Spec Type: Surgical Subm Dr: Matti Newsome MD Tissues: A Duodenum - Biopsy (DUOD BX) B Stomach - Biopsy/Polyp (ANTRM BX) C Esophagus Biopsy (ESO BX) Procedures: SYNAP, HE/6, Gross/Micro L4/3, GMS II Dark -------- Patient: Georgia Junior [id number] (Continued) -------- Specimen: [id number] Received: 10/27/23 (Continued) Supplemental Report (Continued) Addendum Signed (signature on file) Pascale Ruggiero MD 11/04/23 1344 -------- Pathological Diagnosis A. Duodenum, biopsy: - Unremarkable duodenal mucosa. - Negative for features of celiac disease. B. 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 - Gastric body mucosa with no significant inflammation. - Negative for H. pylori on H. pylori immunostain with appropriate controls. C. Esophagus, biopsy: - Benign esophageal mucosa with features suggestive of gastroesophageal reflux disease. Comment: The esophageal mucosa demonstrates inflammation in the submucosa and reactive submucosal glands. Patchy areas of acute inflammation extend into the squamous epithelium. Patchy eosinophils are also present in the squamous epithelium. There is mild thickening of the basal layer and elevation of the submucosal papilla. These findings are suggestive of gastroesophageal reflux disease. A GMS fungal stain was done and demonstrates no evidence for organisms. No viral cytopathic changes are identified. Clinical Information Heartburn, dyspepsia; rule out sprue (A) Gross Description A. Received in formalin labeled with the patient's name, date of and duodenal is a 0.6 x 0.4 x 0.2 cm griffith soft tissue fragment. Entirely submitted in one cassette labeled A1. B. Received in formalin labeled with the patient's name, date of and antrum biopsy is a 0.5 x 0.4 x 0.2 cm griffith soft tissue fragment. Entirely submitted in one cassette labeled B1. C. Received in formalin labeled with the patient's name, date of and esophagus -------- Specimen: [id number] Received: 10/27/23-122 Status: SONAL Moise Num: [id number] Spec Type: Surgical Subm Dr: Matti Newsome MD Tissues: A Duodenum - Biopsy (DUOD BX) B Stomach - Biopsy/Polyp (ANTRM BX) C Esophagus Biopsy (ES (more content not included)... Normal [facility] MM screening mammo BI w/CADo n 09-08-2023 MM screening mammo BI w/CAD [facility] [place] [address] Mammography Report Signed Patient: Georgia Junior MR#: [id number] : 1965 Acct:[id number] Age/Sex: 58 / F ADM Date: 09/08/23 Loc: [place] Room: Type: [facility] Attending Dr: Flako Guaman MD Copies to: [facility] Flako Guaman MD-NOMS Ordering Provider: Flako Guaman MD-NOMS Date of Service: 09/08/23 MM/MM screening [...] next mammogram. Impression dictated by: Ector Pal Jr. DCristalOCristal09/08/2023 10:14 AM Dictation Location: [facility] Transcribed By: KRIS 09/08/231013 Dictated By: Ector Pal Jr, 09/08/231012 Signed By: 09/08/231013 Normal [facility] EMG & nerve conductionon Impression: This is an abnormal EMG/NCS of bilateral lower extremities. There is electrophysiological evidence consistent with chronic moderate bilateral L5 and left S1 radiculopathy with no active denervation. Robb Castro M.D. ---- Robb Sparks MD - 08/28/2023 IMPRESSION: Impression: This is an abnormal EMG/NCS of bilateral lower extremities. There is electrophysiological evidence consistent with chronic moderate bilateral L5 and left S1 radiculopathy with no active denervation. Robb Castro M.D. 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 She is doing excellent. She should continue using it as she has been. We will continue to see her annually. She will get repeat x-rays at her visit with us next year. Followup in 1 year By signing my name below, I, Robe Motley, attest that this documentation has been prepared under the direction and in the presence of Dr. Eugene Osuna. All medical record entries made by the Scribe were at my direction and personally dictated [...] of later (more content not included)... Normal [facility] SURGICAL PATHOLOGY REFERENCE LAB CONSULTon 02-27-2023 CASE REPORT Normal [facility] Comment on above: Order Comment: Speci men Type: SLIDE Ordering Facility: [facility] Address: [facility] [place] [address] Result Comment: Surg ical Pathology Report Case: [id number] Authorizing Provider: Oscar Sultana MD Collected: 02/27/2023 08:56 AM Ordering Location: [facility] Main Received: 02/27/2023 08:54 AM Pathologist: Jennifer Ramos MD Specimen: SLIDE(S), 19 SLIDES ([id number]) Performed By: #### L [id number] #### [facility] CLIA [id number] [address] [place] [address] [place] CLINICAL HISTORY CONSULT REQUESTED [facility] Comment on above: Order Comment: Speci men Type: SLIDE Ordering Facility: [facility] Address: [address] [place], [place] [address] [address] Performed By: #### L [id number] #### [facility] CLIA [id number] [address] [place] [address] [place] DIAGNOSIS COMMENT Normal [facility] Comment on above: Order Comment: Speci sachi Type: SLIDE Ordering Facility: [facility] Address: [address] [place], [place] [address] [address] Result Comment: Than k you for sending [...] call at . Performed By: #### L [id number] #### [facility] CLIA [id number] [address] [place] [address] OF [facility] FINAL DIAGNOSIS Normal [facility] Comment on above: Order Comment: Speci men Type: SLIDE Ordering Facility: [facility] Address: [address] [place], [place] [id number] Result Comment: Revi ew of slides from [facility], [place], [place], 19 slides ([id number]), dated 12/31/2022: Uterus with cervix, right and [...] significant pathologic abnormality. Performed By: #### L [id number] #### [facility] CLIA [id number] [address] [place] FINAL PERFORMING LAB Normal [facility] Comment on above: Order Comment: Speci men Type: SLIDE Ordering Facility: [facility] Address: [facility] [place] [id number] Result Comment: Diag nostic interpretation performed at [facility], [address] [place] [address] CLIA# [id number] Esl Tutor: Dony Rausch M.D. Performed By: #### L [id number] #### [facility] CLIA [id number] [address] [place] [address] STATES OF [facility] Alanine aminotransferase [En zymatic activity/volume] in Serum or PlasmaOrdered By: Terrence Ochoa on 01-09-2023 ALT [Catalytic activity/Vol] 40 U/L 7-52 [facility] Albumin [Mass/volume] in Ser um or Plasma by Bromocresol green (BCG) dye binding methoOrdered By: Terrence Ochoa on 01-09-2023 Albumin BCG dye [Mass/Vol] 4.0 g/dL 3.5-5.7 [facility] Alkaline phosphatase [Enzyma tic activity/volume] in Serum or PlasmaOrdered By: Terrence Ochoa on 01-09-2023 ALP [Catalytic activity/Vol] 120 U/L 34-104 [facility] Aspartate aminotransferase [ Enzymatic activity/volume] in Serum or PlasmaOrdered By: Terrence Ochoa on 01-09-2023 AST [Catalytic activity/Vol] 18 U/L 13-39 [facility] Automated erythrocytes count in urine sediment (number/area)Ordered By: Terrence Ochoa on 01-09-2023 RBC Auto (Urine sed) [#/Area] 10-19 [HPF] 0-4 [facility] Automated leukocytes count i n urine sediment (number/area)Ordered By: Terrence Ochoa on 01-09-2023 WBC Auto (Urine sed) [#/Area] 20-49 [HPF] 0-4 [facility] Basophils Auto (Bld) [#/Vol] Ordered By: Terrence Ochoa on 01-09-2023 Basophils (Bld) [#/Vol] 0.1 10*3/uL 0.0-0.2 [facility] Basophils/100 WBC Auto (Bld) Ordered By: Terrence Ochoa on 01-09-2023 Basophils/100 WBC (Bld) 0.5 % . F [facility] Bilirubin Test strip Ql (U)O rdered By: Terrence Ochoa on 01-09-2023 Bilirubin Ql (U) Negative Negative [facility] Bilirubin.direct [Mass/volum e] in Serum or PlasmaOrdered By: Terrence Ochoa on 01-09-2023 Bilirubin.direct [Mass/Vol] 0.10 mg/dL 0.03-0.1 8 [facility] Bilirubin.total [Mass/volume ] in Serum or PlasmaOrdered By: Terrence Ochoa on 01-09-2023 Bilirubin [Mass/Vol] 0.3 mg/dL 0.3-1.0 [facility] Calcium [Mass/volume] in Ser um or PlasmaOrdered By: Terrence Ochoa on 01-09-2023 Calcium [Mass/Vol] 8.7 mg/dL 8.6-10.3 [facility] Carbon dioxide, total [Moles /volume] in Serum or PlasmaOrdered By: Terrence Ochoa on 01-09-2023 CO2 [Moles/Vol] 23.3 mmol/L 21.0-31.0 [facility] Chloride [Moles/volume] in S fallon or PlasmaOrdered By: Terrence Ochoa on 01-09-2023 Chloride [Moles/Vol] 110 mmol/L 98-107 [facility] Color Auto (U)Ordered By: Aydin Ochoa on 01-09-2023 Color (U) Yellow Yellow [facility] Creatinine [Mass/volume] in Serum or PlasmaOrdered By: Terrence Ochoa on 01-09-2023 Creatinine [Mass/Vol] 0.78 mg/dL 0.60-1.20 [facility] Eosinophils Auto (Bld) [#/Vo l]Ordered By: Terrence Ochoa on 01-09-2023 Eosinophils (Bld) [#/Vol] 0.3 10*3/uL 0.0-0.45 [facility] Eosinophils/100 WBC Auto (Bl d)Ordered By: Terrence Ochoa on 01-09-2023 Eosinophils/100 WBC (Bld) 1.9 % . [facility] Erythrocyte distribution wid th Auto (RBC) [Ratio]Ordered By: Terrence Ochoa on 01-09-2023 Erythrocyte distribution width (RBC) [Ratio] 14.6 % 11.9-15.3 [facility] Globulin Calc (S) [Mass/Vol] Ordered By: Terrence Ochoa on 01-09-2023 Globulin (S) [Mass/Vol] 2.9 g/dL F [facility] Glucose [Mass/volume] in Ser um or PlasmaOrdered By: Terrence Ochoa on 01-09-2023 Glucose [Mass/Vol] 121 mg/dL 70-100 [facility] Comment on above: ADA recommended refe rence rangeRandom Glucose Reference Range is dependent on time and content of last meal. Glucose of more than 200 mg/dL in a nonstressed, ambulatory subject supports the diagnosis of Diabetes Mellitus. Hematocrit Auto (Bld) [Volum e fraction]Ordered By: Terrence Ochoa on 01-09-2023 Hematocrit (Bld) [Volume fraction] 38.2 % 34.0-46.4 [facility] Hemoglobin [Mass/volume] in BloodOrdered By: Terrence Ochoa on 01-09-2023 Hemoglobin (Bld) [Mass/Vol] 12.4 g/dL 11.8-15. 4 [facility] Ketones Auto test strip (U) [Mass/Vol]Ordered By: Terrence Ochoa on 01-09-2023 Ketones (U) [Mass/Vol] Negative Negative [facility] - UrinalysisOrder ed By: Terrence Ochoa on 01-09-2023 Hyaline casts LM Ql (Urine sed) 0-8 [LPF] 0-8 [facility] Lactate [Moles/volume] in Se rum or PlasmaOrdered By: Terrence Ochoa on 01-09-2023 Lactate [Moles/Vol] 0.6 mmol/L 0.5-2.2 [facility] Leukocytes [#/volume] correc gabriel for nucleated erythrocytes in Blood by Automated counOrdered By: Terrence Ochoa on 01-09-2023 WBC corrected for nucl RBC Auto (Bld) [#/Vol] 13.7 10*3/uL 3.8-11.6 [facility] Lipase [Enzymatic activity/v olume] in Serum or PlasmaOrdered By: Terrence Ochoa on 01-09-2023 Lipase [Catalytic activity/Vol] 53.0 U/L 11.0-82.0 [facility] Lymphocytes Auto (Bld) [#/Vo l]Ordered By: Terrence Ochoa on 01-09-2023 Lymphocytes (Bld) [#/Vol] 2.3 10*3/uL 1.00-4.8 [facility] Lymphocytes/100 WBC Auto (Bl d)Ordered By: Terrence Ochoa on 01-09-2023 Lymphocytes/100 WBC (Bld) 17.0 % . [facility] MCH Auto (RBC) [Entitic mass ]Ordered By: Terrence Ochoa on 01-09-2023 MCH (RBC) [Entitic mass] 26.9 pg 24.7-34.3 [facility] MCHC Auto (RBC) [Mass/Vol]Or dered By: Terrence Ochoa on 01-09-2023 MCHC (RBC) [Mass/Vol] 32.4 g/dL 32.0-35.0 [facility] MCV Auto (RBC) [Entitic vol] Ordered By: Terrence Ochoa on 01-09-2023 MCV (RBC) [Entitic vol] 83.0 fL 80-100 F [facility] Monocyte distribution width [Entitic volume] in Blood by AutomatedOrdered By: Terrence Ochoa on 01-09-2023 Monocyte distribution width Auto (Bld) [Entitic vol] 17.03 % 0.00-20.00 [facility] Monocytes Auto (Bld) [#/Vol] Ordered By: Terrence Ochoa on 01-09-2023 Monocytes (Bld) [#/Vol] 0.9 10*3/uL 0.0-0.8 [facility] Monocytes/100 WBC Auto (Bld) Ordered By: Terrence Ochoa on 01-09-2023 Monocytes/100 WBC (Bld) 6.6 % . F [facility] Neutrophils Auto (Bld) [#/Vo l]Ordered By: Terrence Ochoa on 01-09-2023 Neutrophils (Bld) [#/Vol] 10.2 10*3/uL 1.8-7.7 [facility] Neutrophils/100 WBC Auto (Bl d)Ordered By: Terrence Ochoa on 01-09-2023 Neutrophils/100 WBC (Bld) 74.0 % . [facility] Nitrite Test strip Ql (U)Ord ered By: Terrence Ochoa on 01-09-2023 Nitrite Ql (U) Negative Negative [facility] No Panel InformationOrdered By: Terrence Ochoa on 01-09-2023 Estimated GFR (CKD-EPI) > 60.0 mL/Min [facility] Creatinine Clearance (Chem 85.50 [facility] Nucleated erythrocytes [Pres ence] in Blood by Automated countOrdered By: Terrence Ochoa on 01-09-2023 Nucleated RBC Auto Ql (Bld) 0.1 /100{WBC} 0-0.5 [facility] Platelet mean volume Auto (B ld) [Entitic vol]Ordered By: Terrence Ochoa on 01-09-2023 Platelet mean volume (Bld) [Entitic vol] 7.6 fL 6.3-10.7 [facility] Platelets Auto (Bld) [#/Vol] Ordered By: Terrence Ochoa on 01-09-2023 Platelets (Bld) [#/Vol] 359 10*3/uL 150-450 [facility] Potassium [Moles/volume] in Serum or PlasmaOrdered By: Terrence Ochoa on 01-09-2023 Potassium [Moles/Vol] 3.7 mmol/L 3.5-5.1 [facility] Protein Auto test strip (U) [Mass/Vol]Ordered By: Terrence Ochoa on 01-09-2023 Protein (U) [Mass/Vol] 30 mg/dL Negative [facility] Protein [Mass/volume] in Ser um or PlasmaOrdered By: Terrence Ochoa on 01-09-2023 Protein [Mass/Vol] 6.9 g/dL 6.4-8.9 [facility] RBC Auto (Bld) [#/Vol]Ordere d By: Terrence Ochoa on 01-09-2023 RBC (Bld) [#/Vol] 4.60 10*6/uL 3.60-5.00 [facility] Serum or plasma albumin/glob ulin mass ratioOrdered By: Terrence Ochoa on 01-09-2023 Albumin/Globulin [Mass ratio] 1.4 {ratio} [facility] Serum or plasma anion gap de terminationOrdered By: Terrence Ochoa on 01-09-2023 Anion gap [Moles/Vol] 11.4 mmol/L 6.0-15.0 [facility] Serum or plasma non-glucuron idated bilirubin measurement (mass/volume)Ordered By: Terrence Ochoa on 01-09-2023 Bilirubin.indirect [Mass/Vol] 0.2 mg/dL [facility] Sodium [Moles/volume] in Ser um or PlasmaOrdered By: Terrence Ochoa on 01-09-2023 Sodium [Moles/Vol] 141 mmol/L 136-145 [facility] Specific gravity Auto test s trip (U) [Rel density]Ordered By: Terrence Ochoa on 01-09-2023 Specific gravity (U) [Rel density] > 1.050 1.001-1.03 0 [facility] Squamous epithelial cells de tection in urine sediment by light microscopyOrdered By: Terrence Ochoa on 01-09-2023 Epithelial cells.squamous LM Ql (Urine sed) 1-2 [HPF] 0-2 [facility] Urea nitrogen [Mass/volume] in Serum or PlasmaOrdered By: Terrence Ochoa on 01-09-2023 Urea nitrogen [Mass/Vol] 11 mg/dL 7-25 [facility] Urine bacteria detection by automated methodOrdered By: Terrence Ochoa on 01-09-2023 Bacteria Auto Ql (U) None seen None Seen [facility] Urine clarity by refractomet ry automatedOrdered By: Terrence Ochoa on 01-09-2023 Clarity Refractometry automated (U) Clear Clear [facility] Urine glucose measurement by automated test strip (mass/volume)Ordered By: Terrence Ochoa on 01-09-2023 Glucose Auto test strip (U) [Mass/Vol] Normal mg/dL Normal [facility] Urine hemoglobin detection b y automated test stripOrdered By: Terrence Ochoa on 01-09-2023 Hemoglobin Auto test strip Ql (U) 1+ Negative [facility] Urine leukocyte esterase det ection by automated test stripOrdered By: Terrence Ochoa on 01-09-2023 Leukocyte esterase Auto test strip Ql (U) 1+ Negative [facility] Urobilinogen Auto test strip (U) [Mass/Vol]Ordered By: Terrence Ochoa on 01-09-2023 Urobilinogen (U) [Mass/Vol] Normal mg/dL Normal [facility] WBC Auto (Bld) [#/Vol]Ordere d By: Terrence Ochoa on 01-09-2023 WBC (Bld) [#/Vol] 13.7 10*3/uL 3.8-11.6 [facility] pH Auto test strip (U)Ordere d By: Terrence Ochoa on 01-09-2023 pH (U) 5.5 [pH] 5.0-9.0 [facility] Anaerobic cultureOrdered By: Brando Núñez on 12-31-2022 Bacteria identified Anaer cx Nom (Unsp spec) No Anaerobes Isolated 3 Days [facility] Bacteria identified Aer cx N om (Unsp spec)Ordered By: Brando Núñez on 12-31-2022 Aerobic Culture Escherichia coli [facility] Gram stain for investigation of transfusion reactionOrdered By: Brando Núñez on 12-31-2022 Microscopic observation Gram stain Nom (Unsp spec) [facility] Basophils Auto (Bld) [#/Vol] Ordered By: Brando Núñez on 12-17-2022 Basophils (Bld) [#/Vol] 0.0 10*3/uL 0.0-0.2 [facility] Basophils/100 WBC Auto (Bld) Ordered By: Brando Núñez on 12-17-2022 Basophils/100 WBC (Bld) 0.4 % . F [facility] Calcium [Mass/volume] in Ser um or PlasmaOrdered By: Brando Núñez on 12-17-2022 Calcium [Mass/Vol] 9.0 mg/dL 8.6-10.3 [facility] Carbon dioxide, total [Moles /volume] in Serum or PlasmaOrdered By: Brando Núñez on 12-17-2022 CO2 [Moles/Vol] 23.5 mmol/L 21.0-31.0 [facility] Chloride [Moles/volume] in S fallon or PlasmaOrdered By: Brando Núñez on 12-17-2022 Chloride [Moles/Vol] 109 mmol/L 98-107 [facility] Creatinine [Mass/volume] in Serum or PlasmaOrdered By: Brando Núñez on 12-17-2022 Creatinine [Mass/Vol] 0.82 mg/dL 0.60-1.20 [facility] Eosinophils Auto (Bld) [#/Vo l]Ordered By: Brando Núñez on 12-17-2022 Eosinophils (Bld) [#/Vol] 0.2 10*3/uL 0.0-0.45 [facility] Eosinophils/100 WBC Auto (Bl d)Ordered By: Brando Núñez on 12-17-2022 Eosinophils/100 WBC (Bld) 1.8 % . [facility] Erythrocyte distribution wid th Auto (RBC) [Ratio]Ordered By: Brando Núñez on 12-17-2022 Erythrocyte distribution width (RBC) [Ratio] 14.7 % 11.9-15.3 [facility] Glucose [Mass/volume] in Ser um or PlasmaOrdered By: Brando Núñez on 12-17-2022 Glucose [Mass/Vol] 100 mg/dL 70-100 [facility] Comment on above: ADA recommended refe rence rangeRandom Glucose Reference Range is dependent on time and content of last meal. Glucose of more than 200 mg/dL in a nonstressed, ambulatory subject supports the diagnosis of Diabetes Mellitus. Hematocrit Auto (Bld) [Volum e fraction]Ordered By: Brando Núñez on 12-17-2022 Hematocrit (Bld) [Volume fraction] 36.8 % 34.0-46.4 [facility] Hemoglobin [Mass/volume] in BloodOrdered By: Brando Núñez on 12-17-2022 Hemoglobin (Bld) [Mass/Vol] 11.8 g/dL 11.8-15. 4 [facility] Leukocytes [#/volume] correc gabriel for nucleated erythrocytes in Blood by Automated counOrdered By: Brando Núñez on 12-17-2022 WBC corrected for nucl RBC Auto (Bld) [#/Vol] 11.6 10*3/uL 3.8-11.6 [facility] Lymphocytes Auto (Bld) [#/Vo l]Ordered By: Brando Núñez on 12-17-2022 Lymphocytes (Bld) [#/Vol] 2.3 10*3/uL 1.00-4.8 [facility] Lymphocytes/100 WBC Auto (Bl d)Ordered By: Brando Núñez on 12-17-2022 Lymphocytes/100 WBC (Bld) 19.7 % . [facility] MCH Auto (RBC) [Entitic mass ]Ordered By: Brando Núñez on 12-17-2022 MCH (RBC) [Entitic mass] 27.1 pg 24.7-34.3 [facility] MCHC Auto (RBC) [Mass/Vol]Or dered By: Brando Núñez on 12-17-2022 MCHC (RBC) [Mass/Vol] 32.1 g/dL 32.0-35.0 [facility] MCV Auto (RBC) [Entitic vol] Ordered By: Brando Núñez on 12-17-2022 MCV (RBC) [Entitic vol] 84.3 fL 80-100 F [facility] Monocytes Auto (Bld) [#/Vol] Ordered By: Brando Núñez on 12-17-2022 Monocytes (Bld) [#/Vol] 0.7 10*3/uL 0.0-0.8 [facility] Monocytes/100 WBC Auto (Bld) Ordered By: Brando Núñez on 12-17-2022 Monocytes/100 WBC (Bld) 6.1 % . F [facility] Neutrophils Auto (Bld) [#/Vo l]Ordered By: Brando Núñez on 12-17-2022 Neutrophils (Bld) [#/Vol] 8.4 10*3/uL 1.8-7.7 [facility] Neutrophils/100 WBC Auto (Bl d)Ordered By: Brando Núñez on 12-17-2022 Neutrophils/100 WBC (Bld) 72.0 % . [facility] No Panel InformationOrdered By: Brando Núñez on 12-17-2022 Estimated GFR (CKD-EPI) > 60.0 mL/Min [facility] Creatinine Clearance (Chem N/A [facility] Nucleated erythrocytes [Pres ence] in Blood by Automated countOrdered By: Brando Núñez on 12-17-2022 Nucleated RBC Auto Ql (Bld) 0.2 /100{WBC} 0-0.5 [facility] Platelet mean volume Auto (B ld) [Entitic vol]Ordered By: Brando Núñez on 12-17-2022 Platelet mean volume (Bld) [Entitic vol] 7.9 fL 6.3-10.7 [facility] Platelets Auto (Bld) [#/Vol] Ordered By: Brando Núñez on 12-17-2022 Platelets (Bld) [#/Vol] 309 10*3/uL 150-450 [facility] Potassium [Moles/volume] in Serum or PlasmaOrdered By: Brando Núñez on 12-17-2022 Potassium [Moles/Vol] 4.2 mmol/L 3.5-5.1 [facility] RBC Auto (Bld) [#/Vol]Ordere d By: Brando Núñez on 12-17-2022 RBC (Bld) [#/Vol] 4.36 10*6/uL 3.60-5.00 [facility] Serum or plasma anion gap de terminationOrdered By: Brando Núñez on 12-17-2022 Anion gap [Moles/Vol] 11.7 mmol/L 6.0-15.0 [facility] Sodium [Moles/volume] in Ser um or PlasmaOrdered By: Brando Núñez on 12-17-2022 Sodium [Moles/Vol] 140 mmol/L 136-145 [facility] Urea nitrogen [Mass/volume] in Serum or PlasmaOrdered By: Brando Núñez on 12-17-2022 Urea nitrogen [Mass/Vol] 10 mg/dL 7-25 [facility] WBC Auto (Bld) [#/Vol]Ordere d By: Brando Núñez on 12-17-2022 WBC (Bld) [#/Vol] 11.6 10*3/uL 3.8-11.[address] [facility] [address] TEMPORAL BONES WO CONon 0 [...] by: BRIDGETTE BUCIO Date: 2022-11-11 21:47 Normal [facility] Albumin [Mass/volume] in Ser um or PlasmaOrdered By: Cristian Prasad on 10-21-2022 Albumin [Mass/Vol] 3.5 g/dL 3.2-5.5 [facility] Basophils Auto (Bld) [#/Vol] Ordered By: Cristian Prasad on 10-21-2022 Basophils (Bld) [#/Vol] 0.1 10*3/uL 0.0-0.2 [facility] Basophils/100 WBC Auto (Bld) Ordered By: Cristian Prasad on 10-21-2022 Basophils/100 WBC (Bld) 0.8 % . [facility] Cholesterol [Mass/volume] in Serum or PlasmaOrdered By: Cristian Prasad on 10-21-2022 Cholesterol [Mass/Vol] 169 mg/dL 140-200 [facility] Comment on above: Chol less than 200 m g/dl low riskChol 201-239 mg/dl borderline riskChol 240 mg/dl and greater high risk Cholesterol in LDL Calc [Mas s/Vol]Ordered By: Cristian Prasad on 10-21-2022 Cholesterol in LDL [Mass/Vol] 95 mg/dL 0-100 [facility] Comment on above: LDL ATP III CLASSIFI CATIONLDL less than 100 mg/dL OptimalLDL 100-129 mg/dL Near or above optimalLDL 130-159 mg/dL Borderline highLDL 160-189 mg/dL HighLDL greater than 189 mg/dL Very high Cholesterol in VLDL Calc [Ma ss/Vol]Ordered By: Cristian Prasad on 10-21-2022 Cholesterol in VLDL [Mass/Vol] 34 mg/dL [facility] Creatinine and Glomerular fi ltration rate.predicted panel (S/P/Bld)Ordered By: Cristian Prasad on 10-21-2022 Creatinine [Mass/Vol] 0.96 mg/dL 0.44-1.03 [facility] Eosinophils Auto (Bld) [#/Vo l]Ordered By: Cristian Prasad on 10-21-2022 Eosinophils (Bld) [#/Vol] 0.2 10*3/uL 0.0-0.45 [facility] Eosinophils/100 WBC Auto (Bl d)Ordered By: Cristian Prasad on 10-21-2022 Eosinophils/100 WBC (Bld) 1.7 % . [facility] Erythrocyte distribution wid th Auto (RBC) [Ratio]Ordered By: Cristian Prasad on 10-21-2022 Erythrocyte distribution width (RBC) [Ratio] 16.5 % 11.9-15.3 [facility] Estimated glomerular filtrat ion rate (GFR) non- AmericanOrdered By: Cristian Prasad on 10-21-2022 GFR/1.73 sq M.predicted among non-blacks MDRD (S/P/Bld) [Vol rate/Area] 60 mL/Min [facility] Globulin Calc (S) [Mass/Vol] Ordered By: Cristian Prasad on 10-21-2022 Globulin (S) [Mass/Vol] 2.2 g/dL [facility] Hematocrit Auto (Bld) [Volum e fraction]Ordered By: Cristian Prasad on 10-21-2022 Hematocrit (Bld) [Volume fraction] 35.5 % 34.0-46.4 [facility] Hemoglobin [Mass/volume] in BloodOrdered By: Cristian Prasad on 10-21-2022 Hemoglobin (Bld) [Mass/Vol] 11.3 g/dL 11.8-15. 4 [facility] Leukocytes [#/volume] correc gabriel for nucleated erythrocytes in Blood by Automated counOrdered By: Cristian Prasad on 10-21-2022 WBC corrected for nucl RBC Auto (Bld) [#/Vol] 12.5 10*3/uL 3.8-11.6 [facility] Lymphocytes Auto (Bld) [#/Vo l]Ordered By: Cristian Prasad on 10-21-2022 Lymphocytes (Bld) [#/Vol] 3.6 10*3/uL 1.00-4.8 [facility] Lymphocytes/100 WBC Auto (Bl d)Ordered By: Cristian Prasad on 10-21-2022 Lymphocytes/100 WBC (Bld) 28.9 % . [facility] MCH Auto (RBC) [Entitic mass ]Ordered By: Cristian Prasad on 10-21-2022 MCH (RBC) [Entitic mass] 26.8 pg 24.7-34.3 [facility] MCHC Auto (RBC) [Mass/Vol]Or dered By: Cristian Prasad on 10-21-2022 MCHC (RBC) [Mass/Vol] 31.9 g/dL 32.0-35.0 [facility] MCV Auto (RBC) [Entitic vol] Ordered By: Cristian Prasad on 10-21-2022 MCV (RBC) [Entitic vol] 83.9 fL 80-100 [facility] Monocytes Auto (Bld) [#/Vol] Ordered By: Cristian Prasad on 10-21-2022 Monocytes (Bld) [#/Vol] 1.1 10*3/uL 0.0-0.8 [facility] Monocytes/100 WBC Auto (Bld) Ordered By: Cristian Prasad on 10-21-2022 Monocytes/100 WBC (Bld) 8.5 % . [facility] Neutrophils Auto (Bld) [#/Vo l]Ordered By: Cristian Prasad on 10-21-2022 Neutrophils (Bld) [#/Vol] 7.5 10*3/uL 1.8-7.7 [facility] Neutrophils/100 WBC Auto (Bl d)Ordered By: Cristian Prasad on 10-21-2022 Neutrophils/100 WBC (Bld) 60.1 % . [facility] No Panel InformationOrdered By: Cristian Prasad on 10-21-2022 Estimated GFR () > 60 mL/Min [facility] Comment on above: GFR estimated refere nce range: According to KDOQI guidelines, <60 ml/min/1.73m2 is sufficient to diagnose a patient with chronic kidney disease. Pharmacy Creatinine Clearance (Chem N/A [facility] Nucleated erythrocytes [Pres ence] in Blood by Automated countOrdered By: Cristian Prasad on 10-21-2022 Nucleated RBC Auto Ql (Bld) 0.2 /100{WBC} 0-0.5 [facility] Platelet mean volume Auto (B ld) [Entitic vol]Ordered By: Cristian Prasad on 10-21-2022 Platelet mean volume (Bld) [Entitic vol] 8.4 fL 6.3-10.7 [facility] Platelets Auto (Bld) [#/Vol] Ordered By: Cristian Prasad on 10-21-2022 Platelets (Bld) [#/Vol] 312 10*3/uL 150-450 [facility] Protein [Mass/volume] in Ser um or PlasmaOrdered By: Cristian Prasad on 10-21-2022 Protein [Mass/Vol] 5.7 g/dL 6.1-7.9 [facility] RBC Auto (Bld) [#/Vol]Ordere d By: Cristian Prasad on 10-21-2022 RBC (Bld) [#/Vol] 4.23 10*6/uL 3.60-5.00 [facility] Serum or plasma alanine singh otransferase measurement without P-5'-P (enzymatic activiOrdered By: Cristian Prasad on 10-21-2022 ALT No additional P-5'-P [Catalytic activity/Vol] 14 U/L 10-60 [facility] Serum or plasma albumin/glob ulin mass ratioOrdered By: Cristian Prasad on 10-21-2022 Albumin/Globulin [Mass ratio] 1.6 {ratio} [facility] Serum or plasma alkaline kam sphatase measurement (enzymatic activity/volume)Ordered By: Cristian Prasad on 10-21-2022 ALP [Catalytic activity/Vol] 81 U/L 32-92 [facility] Serum or plasma anion gap de terminationOrdered By: Cristian Prasad on 10-21-2022 Anion gap [Moles/Vol] 12.2 mmol/L 6.0-15.0 [facility] Serum or plasma aspartate am inotransferase measurement (enzymatic activity/volume)Ordered By: Cristian Prasad on 10-21-2022 AST [Catalytic activity/Vol] 13 U/L 10-42 [facility] Serum or plasma calcium deanne urement (mass/volume)Ordered By: Cristian Prasad on 10-21-2022 Calcium [Mass/Vol] 9.1 mg/dL 8.2-10.2 [facility] Serum or plasma chloride marciano surement (moles/volume)Ordered By: Cristian Prasad on 10-21-2022 Chloride [Moles/Vol] 104 mmol/L 95-114 [facility] Serum or plasma cholesterol in LDL measurement (mass/volume)Ordered By: Cristian Prasad on 10-21-2022 Cholesterol in LDL [Mass/Vol] 102 mg/dL 0-100 [facility] Comment on above: LDL ATP III CLASSIFI CATIONLDL less than 100 mg/dL OptimalLDL 100-129 mg/dL Near or above optimalLDL 130-159 mg/dL Borderline highLDL 160-189 mg/dL HighLDL greater than 189 mg/dL Very high Serum or plasma glucose deanne urement (mass/volume)Ordered By: Cristian Prasad on 10-21-2022 Glucose [Mass/Vol] 91 mg/dL 70-100 [facility] Comment on above: ADA recommended refe rence rangeRandom Glucose Reference Range is dependent on time and content of last meal. Glucose of more than 200 mg/dL in a nonstressed, ambulatory subject supports the diagnosis of Diabetes Mellitus. Serum or plasma high density lipoprotein (HDL) cholesterol measurementOrdered By: Cristian Prasad on 10-21-2022 Cholesterol in HDL [Mass/Vol] 40 mg/dL 35-85 [facility] Comment on above: HDL CHOL ATP-III CLA SSIFICATION Cardiovascular RiskHDL > or equal to 60 mg/dL LOWHDL < 40 mg/dL HIGH Serum or plasma potassium me asurement (moles/volume)Ordered By: Cristian Prasad on 10-21-2022 Potassium [Moles/Vol] 4.5 mmol/L 3.5-5.1 [facility] Serum or plasma sodium measu rement (moles/volume)Ordered By: Cristian Prasad on 10-21-2022 Sodium [Moles/Vol] 137 mmol/L 136-146 [facility] Serum or plasma total biliru bin measurement (mass/volume)Ordered By: Cristian Prasad on 10-21-2022 Bilirubin [Mass/Vol] 0.3 mg/dL 0.3-1.2 [facility] Serum or plasma total carbon dioxide measurement (moles/volume)Ordered By: Cristian Prasad on 10-21-2022 CO2 [Moles/Vol] 25.3 mmol/L 22.0-30.0 [facility] Serum or plasma total choles terol/high density lipoprotein (HDL) cholesterol mass ratOrdered By: Cristian Prasad on 10-21-2022 Cholesterol.total/Cholestero l in HDL [Mass ratio] 4.2 {ratio} <5.0 [facility] Serum or plasma urea nitroge n measurement (mass/volume)Ordered By: Cristian Prasad on 10-21-2022 Urea nitrogen [Mass/Vol] 12 mg/dL 9-23 [facility] Triglyceride [Mass/volume] i n Serum or PlasmaOrdered By: Cristian Prasad on 10-21-2022 Triglyceride [Mass/Vol] 172 mg/dL 35-149 [facility] Comment on above: TRIG ATP III CLASSIF ICATIONTRIG less than 150 mg/dL NormalTRIG 150-199 mg/dL Borderline highTRIG 200-500 mg/dL High TRIG greater than 500 mg/dL Very highStandard traceable to the Center for Disease Conrtrol and Prevention (CDC) test method. WBC Auto (Bld) [#/Vol]Ordere d By: Cristian Prasad on 10-21-2022 WBC (Bld) [#/Vol] 12.5 10*3/uL 3.8-11.6 [facility] Established Visit (Orthopaed ic Surgery)on 10-07-2022 Established [...] months By signing my name below, I, Robe Motley, attest that this documentation has been prepared under the direction and in the presence of Dr. Eugene Osuna. All medical record entries made by the Karenibricardo were at my direction and personally dictated [...] follow-up exam (more content not included)... [facility] XR Shoulder 2 Views Please click on the link to view the study images Normal [facility] [address] DO Work Phone: XR Shoulder 2 Views Normal [facility] [address] Work Phone: SHOULDER, CMPLT, MIN 2 VIEWS on 10-07-2022 SHOULDER, CMPLT, MIN 2 VIEWS 23 Patient Name: [place] JUNIOR STUDY: SHOULDER, CMPLT, MIN 2 VIEWS; 10/07/2022 2:17 pm INDICATION: pain M25.511: Acute pain of right shoulder. 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 No periprosthetic fracture lucency seen. There is no dislocation. IMPRESSION: No hardware failure about the right reverse total shoulder arthroplasty Electronically signed by: DARLENE NICOLE MD Normal [facility] CT KNEE RT WO CONon 09-04-20 CT [...] by: SIMEON AVELAR Date: 2022-09-04 00:34 Normal [facility] XR KNEE RT 4V or >on 022 [...] by: ZAC LUCAS Date: 2022-09-03 19:08 Normal [facility] Basophils Auto (Bld) [#/Vol] Ordered By: ANTONINO Guaman on 08-30-2022 Basophils (Bld) [#/Vol] 0.2 10*3/uL 0.0-0.2 [facility] Basophils/100 WBC Auto (Bld) Ordered By: ANTONINO Guaman on 08-30-2022 Basophils/100 WBC (Bld) 1.4 % . F [facility] Eosinophils Auto (Bld) [#/Vo l]Ordered By: ANTONINO Guaman on 08-30-2022 Eosinophils (Bld) [#/Vol] 0.0 10*3/uL 0.0-0.45 [facility] Eosinophils/100 WBC Auto (Bl d)Ordered By: ANTONINO Guaman on 08-30-2022 Eosinophils/100 WBC (Bld) 0.1 % . [facility] Erythrocyte distribution wid th Auto (RBC) [Ratio]Ordered By: ANTONINO Guaman on 08-30-2022 Erythrocyte distribution width (RBC) [Ratio] 14.7 % 11.9-15.3 [facility] Hematocrit Auto (Bld) [Volum e fraction]Ordered By: ANTONINO Guaman on 08-30-2022 Hematocrit (Bld) [Volume fraction] 34.0 % 34.0-46.4 [facility] Hemoglobin [Mass/volume] in BloodOrdered By: ANTONINO Guaman on 08-30-2022 Hemoglobin (Bld) [Mass/Vol] 10.9 g/dL 11.8-15. 4 [facility] Leukocytes [#/volume] correc gabriel for nucleated erythrocytes in Blood by Automated counOrdered By: ANTONINO Guaman on 08-30-2022 WBC corrected for nucl RBC Auto (Bld) [#/Vol] 14.8 10*3/uL 3.8-11.6 [facility] Lymphocytes Auto (Bld) [#/Vo l]Ordered By: ANTONINO Guaman on 08-30-2022 Lymphocytes (Bld) [#/Vol] 2.7 10*3/uL 1.00-4.8 [facility] Lymphocytes/100 WBC Auto (Bl d)Ordered By: ANTONINO Guaman on 08-30-2022 Lymphocytes/100 WBC (Bld) 18.2 % . [facility] MCH Auto (RBC) [Entitic mass ]Ordered By: ANTONINO Guaman on 08-30-2022 MCH (RBC) [Entitic mass] 26.3 pg 24.7-34.3 [facility] MCHC Auto (RBC) [Mass/Vol]Or dered By: ANTONINO Guaman on 08-30-2022 MCHC (RBC) [Mass/Vol] 32.0 g/dL 32.0-35.0 [facility] MCV Auto (RBC) [Entitic vol] Ordered By: ANTONINO Guaman on 08-30-2022 MCV (RBC) [Entitic vol] 82.3 fL 80-100 [facility] Monocytes Auto (Bld) [#/Vol] Ordered By: ANTONINO Guaman on 08-30-2022 Monocytes (Bld) [#/Vol] 1.0 10*3/uL 0.0-0.8 [facility] Monocytes/100 WBC Auto (Bld) Ordered By: ANTONINO Guaman on 08-30-2022 Monocytes/100 WBC (Bld) 6.8 % . [facility] Neutrophils Auto (Bld) [#/Vo l]Ordered By: ANTONINO Guaman on 08-30-2022 Neutrophils (Bld) [#/Vol] 10.9 10*3/uL 1.8-7.7 [facility] Neutrophils/100 WBC Auto (Bl d)Ordered By: ANTONINO Guaman on 08-30-2022 Neutrophils/100 WBC (Bld) 73.5 % . [facility] Nucleated erythrocytes [Pres ence] in Blood by Automated countOrdered By: ANTONINO Gumaan on 08-30-2022 Nucleated RBC Auto Ql (Bld) 0.0 /100{WBC} 0-0.5 [facility] Platelet mean volume Auto (B ld) [Entitic vol]Ordered By: ANTONINO Guaman on 08-30-2022 Platelet mean volume (Bld) [Entitic vol] 7.5 fL 6.3-10.7 [facility] Platelets Auto (Bld) [#/Vol] Ordered By: ANTONINO Guaman on 08-30-2022 Platelets (Bld) [#/Vol] 296 10*3/uL 150-450 [facility] RBC Auto (Bld) [#/Vol]Ordere d By: ANTONINO Guaman on 08-30-2022 RBC (Bld) [#/Vol] 4.13 10*6/uL 3.60-5.00 [facility] WBC Auto (Bld) [#/Vol]Ordere d By: ANTONINO Guaman on 08-30-2022 WBC (Bld) [#/Vol] 14.8 10*3/uL 3.8-11.6 [facility] Basophils Auto (Bld) [#/Vol] Ordered By: Ronen Gonzalez on 08-29-2022 Basophils (Bld) [#/Vol] 0.1 10*3/uL 0.0-0.2 [facility] Basophils/100 WBC Auto (Bld) Ordered By: Ronen Gonzalez on 08-29-2022 Basophils/100 WBC (Bld) 1.2 % . [facility] Creatinine and Glomerular fi ltration rate.predicted panel (S/P/Bld)Ordered By: Ronen Gonzalez on 08-29-2022 Creatinine [Mass/Vol] 0.96 mg/dL 0.44-1.03 [facility] Eosinophils Auto (Bld) [#/Vo l]Ordered By: Ronen Gonzalez on 08-29-2022 Eosinophils (Bld) [#/Vol] 0.2 10*3/uL 0.0-0.45 [facility] Eosinophils/100 WBC Auto (Bl d)Ordered By: Ronen Gonzalez on 08-29-2022 Eosinophils/100 WBC (Bld) 1.6 % . [facility] Erythrocyte distribution wid th Auto (RBC) [Ratio]Ordered By: Ronen Gonzalez on 08-29-2022 Erythrocyte distribution width (RBC) [Ratio] 14.4 % 11.9-15.3 [facility] Estimated glomerular filtrat ion rate (GFR) non- AmericanOrdered By: Ronen Gonzalez on 08-29-2022 GFR/1.73 sq M.predicted among non-blacks MDRD (S/P/Bld) [Vol rate/Area] 60 mL/Min [facility] Genital specimen bacteria id entification by aerobic cultureOrdered By: ANTONINO Guaman on 08-29-2022 Bacteria identified Aer cx Nom (Genital specimen) [facility] Hematocrit Auto (Bld) [Volum e fraction]Ordered By: Ronen Gonzalez on 08-29-2022 Hematocrit (Bld) [Volume fraction] 33.4 % 34.0-46.4 [facility] Hemoglobin [Mass/volume] in BloodOrdered By: Ronen Gonzalez on 08-29-2022 Hemoglobin (Bld) [Mass/Vol] 10.8 g/dL 11.8-15. 4 [facility] Leukocytes [#/volume] correc gabriel for nucleated erythrocytes in Blood by Automated counOrdered By: Ronen Gonzalez on 08-29-2022 WBC corrected for nucl RBC Auto (Bld) [#/Vol] 11.8 10*3/uL 3.8-11.6 [facility] Lymphocytes Auto (Bld) [#/Vo l]Ordered By: Ronen Gonzalez on 08-29-2022 Lymphocytes (Bld) [#/Vol] 2.6 10*3/uL 1.00-4.8 [facility] Lymphocytes/100 WBC Auto (Bl d)Ordered By: Ronen Gonzalez on 08-29-2022 Lymphocytes/100 WBC (Bld) 22.3 % . [facility] MCH Auto (RBC) [Entitic mass ]Ordered By: Ronen Gonzalez on 08-29-2022 MCH (RBC) [Entitic mass] 26.5 pg 24.7-34.3 [facility] MCHC Auto (RBC) [Mass/Vol]Or dered By: Ronen Gonzalez on 08-29-2022 MCHC (RBC) [Mass/Vol] 32.3 g/dL 32.0-35.0 [facility] MCV Auto (RBC) [Entitic vol] Ordered By: Ronen Gonzalez on 08-29-2022 MCV (RBC) [Entitic vol] 81.9 fL 80-100 [facility] Monocytes Auto (Bld) [#/Vol] Ordered By: Ronen Gonzalez on 08-29-2022 Monocytes (Bld) [#/Vol] 0.7 10*3/uL 0.0-0.8 [facility] Monocytes/100 WBC Auto (Bld) Ordered By: Ronen Gonzalez on 08-29-2022 Monocytes/100 WBC (Bld) 6.0 % . [facility] Neutrophils Auto (Bld) [#/Vo l]Ordered By: Ronen Gonzalez on 08-29-2022 Neutrophils (Bld) [#/Vol] 8.1 10*3/uL 1.8-7.7 [facility] Neutrophils/100 WBC Auto (Bl d)Ordered By: Ronen Gonzalez on 08-29-2022 Neutrophils/100 WBC (Bld) 68.9 % . [facility] No Panel InformationOrdered By: Ronen Gonzalez on 08-29-2022 Estimated GFR () > 60 mL/Min [facility] Comment on above: GFR estimated refere nce range: According to KDOQI guidelines, <60 ml/min/1.73m2 is sufficient to diagnose a patient with chronic kidney disease. Pharmacy Creatinine Clearance (Chem 66.31 [facility] Nucleated erythrocytes [Pres ence] in Blood by Automated countOrdered By: Ronen Gonzalez on 08-29-2022 Nucleated RBC Auto Ql (Bld) 0.1 /100{WBC} 0-0.5 [facility] Platelet mean volume Auto (B ld) [Entitic vol]Ordered By: Ronen Gonzalez on 08-29-2022 Platelet mean volume (Bld) [Entitic vol] 7.1 fL 6.3-10.7 [facility] Platelets Auto (Bld) [#/Vol] Ordered By: Ronne Gonzalez on 08-29-2022 Platelets (Bld) [#/Vol] 293 10*3/uL 150-450 [facility] RBC Auto (Bld) [#/Vol]Ordere d By: Ronen Gonzalez on 08-29-2022 RBC (Bld) [#/Vol] 4.08 10*6/uL 3.60-5.00 [facility] Serum or plasma anion gap de terminationOrdered By: Ronen Gonzalez on 08-29-2022 Anion gap [Moles/Vol] 14.6 mmol/L 6.0-15.0 [facility] Serum or plasma calcium deanne urement (mass/volume)Ordered By: Ronen Gonzalez on 08-29-2022 Calcium [Mass/Vol] 8.6 mg/dL 8.2-10.2 [facility] Serum or plasma chloride marciano surement (moles/volume)Ordered By: Ronen Gonzalez on 08-29-2022 Chloride [Moles/Vol] 104 mmol/L 95-114 [facility] Serum or plasma glucose deanne urement (mass/volume)Ordered By: Ronen Gonzalez on 08-29-2022 Glucose [Mass/Vol] 104 mg/dL 70-100 [facility] Comment on above: ADA recommended refe rence rangeRandom Glucose Reference Range is dependent on time and content of last meal. Glucose of more than 200 mg/dL in a nonstressed, ambulatory subject supports the diagnosis of Diabetes Mellitus. Serum or plasma potassium me asurement (moles/volume)Ordered By: Ronen Gonzalez on 08-29-2022 Potassium [Moles/Vol] 3.8 mmol/L 3.5-5.1 [facility] Serum or plasma sodium measu rement (moles/volume)Ordered By: Ronen Gonzalez on 08-29-2022 Sodium [Moles/Vol] 135 mmol/L 136-146 [facility] Serum or plasma total carbon dioxide measurement (moles/volume)Ordered By: Ronen Gonzalez on 08-29-2022 CO2 [Moles/Vol] 20.2 mmol/L 22.0-30.0 [facility] Serum or plasma urea nitroge n measurement (mass/volume)Ordered By: Ronen Carlos on 08-29-2022 Urea nitrogen [Mass/Vol] 19 mg/dL 9-23 [facility] WBC Auto (Bld) [#/Vol]Ordere d By: Ronen Gonzalez on 08-29-2022 WBC (Bld) [#/Vol] 11.8 10*3/uL 3.8-11.6 [facility] COVID-19 SOFIAOrdered By: -SERGO Guaman on 08-27-2022 SARS-CoV+SARS-CoV-2 (COVID-19) Ag IA.rapid Ql (Resp) Negative Negative [facility] Comment on above: This is a duplicate [facility] SARS Antigen (SHARDA) result to be used for statistical tracking purpose only. No Panel InformationOrdered By: ANTONINO Guaman on 08-27-2022 SARS Antigen (LFIA) [facility] SARS Antigen (LFIA) [facility] Established Visit (Orthopaed ic Surgery)on 07-08-2022 Established [...] x-rays. By signing my name below, I, Robe Motley, attest that this documentation has been prepared under the direction and in the presence of Dr. Eugene Osuna. All medical record entries made by the Scribe were at my direction and personally dictated [...] (V43.61) (Z96.611) (more content not included)... 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 COMPARISON: 06/24/2021 ACCESSION NUMBER(S): [id number] ORDERING CLINICIAN: EUGENE OSUNA FINDINGS: Right glenohumeral reverse arthroplasty again noted. No acute hardware complication. No acute fracture is seen. Old-appearing rib deformities of the right posterolateral 4th and 5th ribs. Partially imaged cervical spine hardware. IMPRESSION: Right glenohumeral reverse arthroplasty without acute hardware complication. Electronically signed by: NAVA PITT MD Normal [facility] Radiologyon 06-24-2021 XR Shoulder 2 Views Normal [facility] [address] Work Phone: XR Shoulder 2 Views Please click on the link to view the study images Normal [facility] [address] DO Work Phone: Radiologyon 05-14-2020 XR Shoulder 2 Views Interpreted by: EVE 05/14/20 13:02 Patient Name: GE[place] JUNIOR STUDY: SHOULDER, CMPLT, MIN 2 VIEWS; Right; 05/14/2020 9:51 am INDICATION: Status post replacement of right shoulder joint. 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 Previous surgical drain has been removed. No evidence of complication. Moderate acromioclavicular joint arthritis. Healed right rib fractures. IMPRESSION: Intact total right shoulder prosthesis. Electronically signed by: EVE 05/14/20 13:02 Normal [facility] [address] 101 Work Phone: Cult, Misc + smearon 020 Bacteria identified Cx Nom (Unsp spec) PATIENT: GEOR[place]IA JUNIOR LOCATION: [place] [address] BILL#: [id number] : 65 AGE: SEX: F ORDERED BY: EUGENE OSUNA SOURCE: MISC COLLECTED: 04/26/20 16:30 ANTIBIOTICS AT [facility]URA.: RECEIVED : 04/26/20 22:53 SITE: right shoulder #1 R E S U L T S GRAM STAIN FINAL 04/27/20 01:47 1+ GRANULOCYTES. NO ORGANISMS SEEN. MISCELLANEOUS CULT./SM.BACT. FINAL 05/10/20 16:20 NO GROWTH AEROBICALLY OR ANAEROBICALLY. [facility] [facility] [address] Work Phone: Comment on above: extended incubation Bacteria identified Cx Nom (Unsp spec) PATIENT: GEOR[place]IA JUNIOR LOCATION: [place] [address] BILL#: [id number] : 65 AGE: SEX: F ORDERED BY: EUGENE OSUNA SOURCE: MISC COLLECTED: 04/26/20 16:30 ANTIBIOTICS AT [facility]UR[facility].: RECEIVED : 04/26/20 22:52 SITE: right shoulder #3 R E S U L T S GRAM STAIN FINAL 04/27/20 07:56 2+ GRANULOCYTES. NO ORGANISMS SEEN. MISCELLANEOUS CULT./SM.BACT. FINAL 05/10/20 16:23 NO GROWTH AEROBICALLY OR ANAEROBICALLY. [facility] [facility] [address] Work Phone: Comment on above: extended incubation Bacteria identified Cx Nom (Unsp spec) PATIENT: GE[place] JUNIOR LOCATION: [place] [address] BILL#: [id number] : 65 AGE: SEX: F ORDERED BY: EUGENE OSUNA SOURCE: MISC COLLECTED: 04/26/20 16:30 ANTIBIOTICS AT [facility].: RECEIVED : 04/26/20 22:51 SITE: right shoulder #2 R E S U L T S GRAM STAIN FINAL 04/27/20 08:13 NO GRANULOCYTES OR ORGANISMS SEEN. MISCELLANEOUS CULT./SM.BACT. FINAL 05/10/20 16:19 NO GROWTH AEROBICALLY OR ANAEROBICALLY. [facility] Work Phone: Comment on above: extended incubation Bacteria identified Cx Nom (Unsp spec) PATIENT: GEOR[place] JUNIOR LOCATION: [place] [address] BILL#: [id number] : 65 AGE: SEX: F ORDERED BY: EUGENE OSUNA SOURCE: MISC COLLECTED: 04/26/20 16:30 ANTIBIOTICS AT [facility].: RECEIVED : 04/26/20 22:52 SITE: right shoulder #5 R E S U L T S GRAM STAIN FINAL 04/27/20 08:17 2+ GRANULOCYTES. NO ORGANISMS SEEN. MISCELLANEOUS CULT./SM.BACT. FINAL 05/10/20 16:21 NO GROWTH AEROBICALLY OR ANAEROBICALLY. [facility] [facility] Work Phone: Comment on above: extended incubation Bacteria identified Cx Nom (Unsp spec) PATIENT: GEORGIA JUNIOR LOCATION: [place] [address] BILL#: [id number] : 65 AGE: SEX: F ORDERED BY: EUGENE OSUNA SOURCE: MISC COLLECTED: 04/26/20 16:30 ANTIBIOTICS AT [facility].: RECEIVED : 04/26/20 22:54 SITE: right shoulder #4 R E S U L T S GRAM STAIN FINAL 04/27/20 16:10 1+ GRANULOCYTES. NO ORGANISMS SEEN. MISCELLANEOUS CULT./SM.BACT. FINAL 05/10/20 16:22 NO GROWTH AEROBICALLY OR ANAEROBICALLY. [facility] [facility] Work Phone: Comment on above: extended incubation Radiologyon 04-26-2020 XR Shoulder 2 Views Interpreted by: JOSHUA BLANCAS 04/26/20 18:09 Patient Name: GEORGIA JUNIOR STUDY: SHOULDER, CMPLT, MIN 2 VIEWS; 04/26/2020 5:55 pm INDICATION: Post Op. COMPARISON: 09/27/2019 ACCESSION NUMBER(S): [id number] ORDERING CLINICIAN: MARIANNA ESCAMILLA TECHNIQUE: A single [...] right rib fractures. Electronically signed by: JOSHUA BLANCAS 04/26/20 18:09 Normal [facility] Work Phone: APTTon 03-05-2020 aPTT Coag (Bld) [Time] 35 s Normal 25 - 35 [facility] Comment on above: Result Comment: Note new reference range as of 02/07/2020. THE APTT IS NO LONGER USED FOR MONITORING UNFRACTIONATED HEPARIN THERAPY. FOR MONITORING HEPARIN THERAPY, USE THE HEPARIN ASSAY. Performed By: #### A PTT #### [address] [address] CBC AND DIFFERENTIALon 03-05 % AUTOMATED IMMATURE GRAN 1.7 % High 0.0 - 0.9 [facility] Comment on above: Result Comment: Marianna ture Granulocyte Count (IG) includes promyelocytes, myelocytes and metamyelocytes but does not include bands. Percent differential counts (%) should be interpreted in the context of the absolute cell counts (cells/L). Performed By: #### C BCDF #### [address] [address] Basophils (Bld) [#/Vol] 0.07 10*3/uL Normal 0.00 - 0.10 [facility] Comment on above: Performed By: #### C BCDF #### [address] [address] Basophils/100 WBC (Bld) 0.4 % Normal 0.0 - 2.0 [facility] Comment on above: Performed By: #### C BCDF #### [address] [address] Eosinophils (Bld) [#/Vol] 0.14 10*3/uL Normal 0. 00 - 0.70 [facility] Comment on above: Performed By: #### C BCDF #### [address] [address] Eosinophils/100 WBC (Bld) 0.9 % Normal 0.0 - 6.0 [facility] Comment on above: Performed By: #### C BCDF #### [address] [address] Erythrocyte distribution width (RBC) [Ratio] 15.1 % High 11.5 - 14.5 [facility] Comment on above: Performed By: #### C BCDF #### [address] [address] Hematocrit (Bld) [Volume fraction] 37.1 % Normal 36.0 - 46.0 [facility] Comment on above: Performed By: #### C BCDF #### [address] [address] Hemoglobin (Bld) [Mass/Vol] 11.6 g/dL Low 12.0 - 16.0 [facility] Comment on above: Performed By: #### C BCDF #### [address] [address] Lymphocytes (Bld) [#/Vol] 3.93 10*3/uL Normal 1. 20 - 4.80 [facility] Comment on above: Performed By: #### C BCDF #### [address] [address] Lymphocytes/100 WBC (Bld) 24.0 % Normal 13 .0 - 44.0 [facility] Comment on above: Performed By: #### C BCDF #### [address] [address] MCHC (RBC) [Mass/Vol] 31.3 g/dL Low 32.0 - 36.0 [facility] Comment on above: Performed By: #### C BCDF #### [address] [address] MCV (RBC) [Entitic vol] 87 fL Normal 80 - 100 [facility] Comment on above: Performed By: #### C BCDF #### [address] [address] Monocytes (Bld) [#/Vol] 0.89 10*3/uL Normal 0.10 - 1.00 [facility] Comment on above: Performed By: #### C BCDF #### [address] [address] Monocytes/100 WBC (Bld) 5.4 % Normal 2.0 - 10.0 [facility] Comment on above: Performed By: #### C BCDF #### [address] [address] Neutrophils (Bld) [#/Vol] 11.04 10*3/uL High 1 .20 - 7.70 [facility] Comment on above: Performed By: #### C BCDF #### [address] [address] Neutrophils/100 WBC (Bld) 67.6 % Normal 40 .0 - 80.0 [facility] Comment on above: Performed By: #### C BCDF #### [address] [address] Platelets (Bld) [#/Vol] 374 10*3/uL Normal 150 - 450 [facility] Comment on above: Performed By: #### C BCDF #### [address] [address] RBC (Bld) [#/Vol] 4.25 x10E12/L Normal 4.00 - 5.20 [facility] Comment on above: Performed By: #### C BCDF #### [address] [address] WBC (Bld) [#/Vol] 16.4 10*3/uL High 4.4 - 11.3 [facility] Comment on above: Performed By: #### C BCDF #### [address] [address] COMPREHENSIVE PANELon 2019 Albumin [Mass/Vol] 4.0 g/dL Normal 3.4 - 5.0 [facility] Comment on above: Performed By: #### C MP #### [address] [address] ALP [Catalytic activity/Vol] 77 U/L Normal 33 - 11 0 [facility] Comment on above: Performed By: #### C MP #### [address] [address] ALT [Catalytic activity/Vol] 22 U/L Normal 7 - 45 [facility] Comment on above: Result Comment: Carito ents treated with Sulfasalazine may generate falsely decreased results for ALT. Performed By: #### C MP #### [address] [address] Anion gap [Moles/Vol] 14 mmol/L Normal 10 - 20 [facility] Comment on above: Performed By: #### C MP #### [address] [address] AST [Catalytic activity/Vol] 16 U/L Normal 9 - 39 [facility] Comment on above: Performed By: #### C MP #### [address] [address] Bilirubin [Mass/Vol] 0.2 mg/dL Normal 0.0 - 1.2 [facility] Comment on above: Performed By: #### C MP #### [address] [address] Calcium [Mass/Vol] 9.2 mg/dL Normal 8.6 - 10.3 [facility] Comment on above: Performed By: #### C MP #### [address] [address] Chloride [Moles/Vol] 99 mmol/L Normal 98 - 107 [facility] Comment on above: Performed By: #### C MP #### [address] [address] Creatinine [Mass/Vol] 0.95 mg/dL Normal 0.50 - 1.05 [facility] Comment on above: Performed By: #### C MP #### [address] [address] GFR- AM. >60 Normal >60 [facility] Comment on above: Result Comment: CALC ULATIONS OF ESTIMATED GFR ARE PERFORMED USING THE MDRD STUDY EQUATION FOR THE IDMS-TRACEABLE CREATININE METHODS. CLIN CHEM 2007;53:766-72 Performed By: #### C MP #### [address] [address] GFR-NON AM. >60 Normal >60 [facility] Comment on above: Performed By: #### C MP #### [address] [address] Glucose [Mass/Vol] 101 mg/dL High 74 - 99 [facility] Comment on above: Performed By: #### C MP #### [address] [address] HCO3 (Bld) [Moles/Vol] 29 mmol/L Normal 21 - 32 [facility] Comment on above: Performed By: #### C MP #### [address] [address] Potassium [Moles/Vol] 3.5 mmol/L Normal 3.5 - 5.3 [facility] Comment on above: Performed By: #### C MP #### [address] [address] Protein [Mass/Vol] 6.4 g/dL Normal 6.4 - 8.2 [facility] Comment on above: Performed By: #### C MP #### [address] [address] Sodium [Moles/Vol] 138 mmol/L Normal 136 - 145 [facility] Comment on above: Performed By: #### C MP #### [address] [address] Urea nitrogen [Mass/Vol] 26 mg/dL High 6 - 23 [facility] Comment on above: Performed By: #### C MP #### [address] [address] PT/INRon 03-05-2020 INR Coag (PPP) [Relative time] 1.0 {INR} Normal 0.9 - 1.1 [facility] Comment on above: Performed By: #### P TINR #### [address] [address] PT Coag (PPP) [Time] 11.1 s Normal 10.1 - 13.3 [facility] Comment on above: Result Comment: Note new reference range as of 02/07/2020. Performed By: #### P TINR #### [address] [address] Vital Signs Date Time Vital Sign Value Performing Clinician Nuriai samreeny 06-16-2024 10:05040 Body height 157.48 cm Services [facility] [employer] Work Phone: [facility] 06-16-2024 10:05-0400 Body mass index (BMI) [Ratio] 31.4 kg/m2 Services [employer] Work Phone: [facility] 06-16-2024 10:05-0400 Body weight 78 kg Services [employer] Work Phone: [facility] 06-15-2024 10:23-0400 Body height 157.5 cm Huber [employer] PA-C Work Phone: [employer] 06-15-2024 10:23-0400 Body mass index (BMI) [Ratio] 33.11 kg/m2 Huber [employer] PA-C [facility] 06-15-2024 10:23-0400 Body weight 82.1 kg Huber [employer] PA-C [facility] 06-15-2024 10:23-0400 Diastolic blood pressure 86 mm[Hg] Huber Verhoff PA-C Work Phone: [facility] [employer] [facility] 06-15-2024 10:23-0400 Heart rate 80 /min Huber Verhoff PA-C Work Phone: [facility] 06-15-2024 10:23-0400 SaO2% (BldA) [Mass fraction] 99 % Huber Verhoff PA-C Work Phone: [facility] 06-15-2024 10:23-0400 Systolic blood pressure 139 mm[Hg] Huber Verhoff PA-C Work Phone: [facility] 05-25-2024 08:40-0400 Body mass index (BMI) [Ratio] 31.18 kg/m2 Flako Guaman MD Work Phone: [facility] 05-25-2024 08:40-0400 Body weight 79.83 kg Flako Guaman MD Work Phone: [facility] 05-25-2024 08:40-0400 Diastolic blood pressure 80 mm[Hg] Flako Guaman MD Work Phone: [facility] 05-25-2024 08:40-0400 Systolic blood pressure 132 mm[Hg] Flako Guaman MD Work Phone: [facility] 05-19-2024 11:13-0400 Body height 157.48 cm Services [facility] [employer] Work Phone: [facility] 05-19-2024 11:13-0400 Body mass index (BMI) [Ratio] 30.5 kg/m2 Services [facility] Work Phone: [facility] 05-19-2024 11:13-0400 Body temperature 97.4 [degF] Services [facility] Work Phone: [facility] 05-19-2024 11:13-0400 Body weight 75.8 kg Services [facility] Work Phone: [facility] 05-19-2024 11:13-0400 Diastolic blood pressure 67 mm[Hg] Services [facility] Work Phone: [facility] 05-19-2024 11:13-0400 Heart rate 84 /min [facility] Work Phone: [facility] 05-19-2024 11:13-0400 Respiratory rate 20 /min [facility] Work Phone: [facility] 05-19-2024 11:13-0400 SaO2% (BldA) [Mass fraction] 97 % Services [facility] Work Phone: [facility] 05-19-2024 11:13-0400 Systolic blood pressure 102 mm[Hg] Services [facility] Work Phone: [facility] 05-03-2024 13:58-0400 Body height 154.9 cm Julia Michaelss ENVIRONMENTAL QUALITY ANALYST - PENCIL INSPECTOR Work Phone: [facility] [employer] 05-03-2024 13:58-0400 Body mass index (BMI) [Ratio] 33.25 kg/m2 Juliachanelle Bansal ENVIRONMENTAL QUALITY ANALYST - PENCIL INSPECTOR Work Phone: [facility] [employer] 05-03-2024 13:58-0400 Body weight 79.83 kg Julia Bansal ENVIRONMENTAL QUALITY ANALYST - PENCIL INSPECTOR Work Phone: [facility] [employer] 05-03-2024 13:58-0400 Diastolic blood pressure 62 mm[Hg] Julia Michaelss ENVIRONMENTAL QUALITY ANALYST - PENCIL INSPECTOR Work Phone: [facility] [employer] 05-03-2024 13:58-0400 Heart rate 72 /min Julia Michaelss ENVIRONMENTAL QUALITY ANALYST - PENCIL INSPECTOR Work Phone: [facility] [employer] 05-03-2024 13:58-0400 Systolic blood pressure 95 mm[Hg] Julia Bansal ENVIRONMENTAL QUALITY ANALYST - PENCIL INSPECTOR Work Phone: [facility] [employer] 03-18-2024 14:00-0400 Body height 154.9 cm Ronen Raya MD Work Phone: [facility] [employer] 03-18-2024 14:00-0400 Body mass index (BMI) [Ratio] 34.88 kg/m2 Ronen Raya MD Work Phone: [facility] 03-18-2024 14:00-0400 Body weight 83.73 kg Ronen Raya MD Work Phone: [facility] 03-18-2024 14:00-0400 Diastolic blood pressure 67 mm[Hg] Ronen Ryaa MD Work Phone: [facility] 03-18-2024 14:00-0400 Heart rate 69 /min Ronen Raya MD Work Phone: [facility] 03-18-2024 14:00-0400 Systolic blood pressure 96 mm[Hg] Ronen Raya MD Work Phone: [facility] 03-11-2024 01:04-0400 Body height 157.48 cm Services [employer] Work Phone: [facility] 03-11-2024 01:04-0400 Body temperature 97.9 [degF] Services [facility] Work Phone: [facility] 03-11-2024 01:04-0400 Body weight 85.26 kg Services [facility] [employer] Work Phone: [facility] 03-11-2024 01:04-0400 Diastolic blood pressure 79 mm[Hg] Services [employer] Work Phone: [facility] 03-11-2024 01:04-0400 Heart rate 77 /min Services [employer] Work Phone: [facility] 03-11-2024 01:04-0400 Respiratory rate 18 /min Services [facility] Work Phone: [facility] 03-11-2024 01:04-0400 SaO2% (BldA) [Mass fraction] 96 % Services [facility] Work Phone: [facility] 03-11-2024 01:04-0400 Systolic blood pressure 124 mm[Hg] Services [facility] [employer] Work Phone: [facility] 02-09-2024 13:39-0400 Body height 157.48 cm Services [employer] Work Phone: [facility] 02-09-2024 13:39-0400 Body mass index (BMI) [Ratio] 36 kg/m2 Services [employer] Work Phone: [facility] 02-09-2024 13:39-0400 Body temperature 98.6 [degF] Services [employer] Work Phone: [facility] 02-09-2024 13:39-0400 Body weight 89.35 kg Services [employer] Work Phone: [facility] 02-09-2024 13:39-0400 Diastolic blood pressure 67 mm[Hg] Services [employer] Work Phone: [facility] 02-09-2024 13:39-0400 Heart rate 77 /min Services [facility] [employer] Work Phone: [facility] 02-09-2024 13:39-0400 Respiratory rate 20 /min Services [facility] [employer] Work Phone: [facility] 02-09-2024 13:39-0400 SaO2% (BldA) [Mass fraction] 96 % Services [facility] [employer] Work Phone: [facility] 02-09-2024 13:39-0400 Systolic blood pressure 98 mm[Hg] Services [facility] [employer] Work Phone: [facility] 02-05-2024 07:20-0400 Body temperature 97.9 [degF] Jose Manuel Burgos MD Work Phone: [facility] 02-05-2024 07:20-0400 Diastolic blood pressure 77 mm[Hg] Jose Manuel Burgos MD Work Phone: [facility] [employer] 02-05-2024 07:20-0400 Heart rate 60 /min Jose Manuel Burgos MD Work Phone: [facility] 02-05-2024 07:20-0400 Respiratory rate 18 /min Jose Manuel Burgos MD Work Phone: [facility] 02-05-2024 07:20-0400 SaO2% (BldA) [Mass fraction] 98 % Jose Manuel Burgos MD Work Phone: [facility] 02-05-2024 07:20-0400 Systolic blood pressure 145 mm[Hg] Jose Manuel Burgos MD Work Phone: [facility] 02-04-2024 08:25-0400 Body height 157.5 cm Jose Manuel Burgos MD Work Phone: [facility] 02-04-2024 08:25-0400 Body mass index (BMI) [Ratio] 34.85 kg/m2 Jose Manuel Burgos MD Work Phone: [facility] 02-04-2024 08:25-0400 Body weight 86.46 kg Jose Manuel Burgos MD Work Phone: [facility] 01-22-2024 10:04-0400 Body height 156.21 cm Services [facility] [employer] Work Phone: [facility] 01-22-2024 10:04-0400 Body temperature 98 [degF] Services [facility] Work Phone: [facility] 01-22-2024 10:04-0400 Body weight 86 kg Services [facility] Work Phone: [facility] 01-22-2024 10:04-0400 Diastolic blood pressure 65 mm[Hg] Services [facility] Work Phone: [facility] 01-22-2024 10:04-0400 Heart rate 69 /min Services [facility] Work Phone: [facility] 01-22-2024 10:04-0400 SaO2% (BldA) [Mass fraction] 99 % Services [facility] Work Phone: [facility] 01-22-2024 10:04-0400 Systolic blood pressure 104 mm[Hg] Services [facility] Work Phone: [facility] 12-11-2023 13:35-0400 Body height 154.94 cm Services [facility] Work Phone: [facility] 12-11-2023 13:35-0400 Body mass index (BMI) [Ratio] 35 kg/m2 Services [facility] Work Phone: [facility] 12-11-2023 13:35-0400 Body weight 84.14 kg Services [employer] Work Phone: [facility] 12-11-2023 13:35-0400 Diastolic blood pressure 70 mm[Hg] Services [facility] Work Phone: [facility] 12-11-2023 13:35-0400 Heart rate 96 /min Services [facility] Work Phone: [facility] 12-11-2023 13:35-0400 Systolic blood pressure 103 mm[Hg] Services [facility] Work Phone: [facility] 12-09-2023 12:30-0400 Diastolic blood pressure 76 mm[Hg] Obi Silvestre MD Work Phone: [facility] 12-09-2023 12:30-0400 Heart rate 70 /min Obi Silvestre MD Work Phone: [facility] 12-09-2023 12:30-0400 Respiratory rate 18 /min Obi Silvestre MD Work Phone: [facility] 12-09-2023 12:30-0400 SaO2% (BldA) [Mass fraction] 100 % Obi Silvestre MD Work Phone: [facility] 12-09-2023 12:30-0400 Systolic blood pressure 140 mm[Hg] Obi Silvestre MD Work Phone: [facility] 12-09-2023 12:12-0400 Body temperature 97.3 [degF] Obi Silvestre MD Work Phone: [facility] 12-09-2023 10:12-0400 Body height 154.9 cm Obi Silvestre MD Work Phone: [facility] 12-09-2023 10:12-0400 Body mass index (BMI) [Ratio] 35.33 kg/m2 Obi Silvestre MD Work Phone: [facility] 12-09-2023 10:12-0400 Body weight 84.82 kg Obi Silvestre MD Work Phone: [facility] 11-29-2023 11:36-0400 Body temperature 97.1 [degF] [facility] Work Phone: [facility] 11-29-2023 11:36-0400 Diastolic blood pressure 76 mm[Hg] [facility] Work Phone: [facility] 11-29-2023 11:36-0400 Heart rate 68 /min [facility] Work Phone: [facility] 11-29-2023 11:36-0400 Respiratory rate 18 /min [facility] Work Phone: [facility] 11-29-2023 11:36-0400 SaO2% (BldA) [Mass fraction] 98 % [facility] Work Phone: [facility] 11-29-2023 11:36-0400 Systolic blood pressure 120 mm[Hg] [facility] Work Phone: [facility] 11-29-2023 09:55-0400 Body height 160.02 cm [facility] Work Phone: [facility] 11-29-2023 09:55-0400 Body weight 83 kg [facility] Work Phone: [facility] 10-27-2023 11:05-0500 Diastolic blood pressure 69 mm[Hg] [facility] Work Phone: [facility] 10-27-2023 11:05-0500 Heart rate 81 /min [facility] Work Phone: [facility] 10-27-2023 11:05-0500 Respiratory rate 16 /min [facility] Work Phone: [facility] 10-27-2023 11:05-0500 SaO2% (BldA) [Mass fraction] 98 % Services [employer] Work Phone: [facility] 10-27-2023 11:05-0500 Systolic blood pressure 109 mm[Hg] Services [facility] Work Phone: [facility] 10-27-2023 08:36-0500 Body height 154.94 cm Services [employer] Work Phone: [facility] 10-27-2023 08:36-0500 Body weight 84.82 kg Services [facility] Work Phone: [facility] 10-14-2023 11:03-0500 Diastolic blood pressure 79 mm[Hg] Huber Verhoff PA-C Work Phone: [employer] 10-14-2023 11:03-0500 Heart rate 84 /min Huber Verhoff PA-C Work Phone: [employer] 10-14-2023 11:03-0500 Respiratory rate 20 /min Huber Verhoff PA-C Work Phone: [employer] 10-14-2023 11:03-0500 Systolic blood pressure 126 mm[Hg] Huber Verhoff PA-C Work Phone: [employer] 09-21-2023 13:00-0500 Body height 160.02 cm Bharat Carreon Other [facility] 09-21-2023 13:00-0500 Body mass index (BMI) [Ratio] 34.54 kg/m2 Bharat Carreon Other [employer] Other 09-21-2023 13:00-0500 Body weight 88.45 kg Bharat Carreon Other [facility] 09-21-2023 13:00-0500 Diastolic blood pressure 73 mm[Hg] Bharat Carreon Other [facility] 09-21-2023 13:00-0500 Systolic blood pressure 118 mm[Hg] Bharat Carreon Other [facility] 08-26-2023 09:00-0500 Body height 160.02 cm Kevan Hyman Other [facility] 08-26-2023 09:00-0500 Body mass index (BMI) [Ratio] 35.07 kg/m2 Kevan Kingno Other [employer] Other 08-26-2023 09:00-0500 Body temperature 97.6 [degF] Kevan Kingno Other [employer] Other 08-26-2023 09:00-0500 Body weight 89.81 kg Kevan Kingno Other [facility] 08-26-2023 09:00-0500 Diastolic blood pressure 72 mm[Hg] Kevan Balldano Other [facility] 08-26-2023 09:00-0500 Respiratory rate 20 /min Kevan Kingno Other [employer] Other 08-26-2023 09:00-0500 SaO2% (BldA) [Mass fraction] 99 % Kevan Kingno Other [employer] Other 08-26-2023 09:00-0500 Systolic blood pressure 109 mm[Hg] Kevan Balldano Other [facility] 08-04-2023 13:00-0500 Body height 160.02 cm Bharat Carreon Other [facility] 08-04-2023 13:00-0500 Body mass index (BMI) [Ratio] 36.13 kg/m2 Bharat Carreon Other [employer] [facility] [employer] Other 08-04-2023 13:00-0500 Body weight 92.53 kg Bharat Carreon Other [facility] 08-04-2023 13:00-0500 Diastolic blood pressure 77 mm[Hg] Bharat Carreon Other [facility] 08-04-2023 13:00-0500 Systolic blood pressure 115 mm[Hg] Bharat Carreon Other [facility] 05-20-2023 09:30-0400 Body height 160.02 cm Kevan Hyman Other [employer] Other 05-20-2023 09:30-0400 Body mass index (BMI) [Ratio] 35.96 kg/m2 Kevan Hyman Other [employer] Other 05-20-2023 09:30-0400 Body temperature 97.4 [degF] Kevan Hyman Other [employer] Other 05-20-2023 09:30-0400 Body weight 92.08 kg Kevan Hyman Other [employer] Other 05-20-2023 09:30-0400 Diastolic blood pressure 78 mm[Hg] Kevan Hyman Other [employer] Other 05-20-2023 09:30-0400 Respiratory rate 20 /min Kevan Kingno Other [employer] Other 05-20-2023 09:30-0400 SaO2% (BldA) [Mass fraction] 98 % Kevan Hyman Other [employer] Other 05-20-2023 09:30-0400 Systolic blood pressure 116 mm[Hg] Kevan Hyman Other [employer] Other 05-04-2023 11:00-0400 Body height 160.02 cm Bharat Scovanner Other [employer] Other 05-04-2023 11:00-0400 Body mass index (BMI) [Ratio] 35.78 kg/m2 Bharat Scovanner Other [employer] Other 05-04-2023 11:00-0400 Body weight 91.63 kg Bharat Scovanner Other [employer] Other 05-04-2023 11:00-0400 Diastolic blood pressure 70 mm[Hg] Bharat Scovanner Other [employer] Other 05-04-2023 11:00-0400 Systolic blood pressure 97 mm[Hg] Bharat Scovanner Other [employer] Other 03-05-2023 13:45-0400 Body height 160.02 cm Corey Moore Other [employer] Other 03-05-2023 13:45-0400 Body mass index (BMI) [Ratio] 35.42 kg/m2 Corey Dilay Other [employer] Other 03-05-2023 13:45-0400 Body weight 90.72 kg Corey Dilay Other [employer] Other 03-05-2023 13:45-0400 Diastolic blood pressure 87 mm[Hg] Corey Moore Other [facility] [employer] Other 03-05-2023 13:45-0400 Systolic blood pressure 125 mm[Hg] Corey Moore Other [facility] [employer] Other 01-09-2023 16:17-0400 Body temperature 97.5 [degF] [facility] Work Phone: [facility] 01-09-2023 16:17-0400 Diastolic blood pressure 76 mm[Hg] Services [facility] Work Phone: [facility] 01-09-2023 16:17-0400 Heart rate 74 /min Services [facility] Work Phone: [facility] 01-09-2023 16:17-0400 Respiratory rate 18 /min [facility] Work Phone: [facility] 01-09-2023 16:17-0400 SaO2% (BldA) [Mass fraction] 96 % Services [facility] Work Phone: [facility] 01-09-2023 16:17-0400 Systolic blood pressure 149 mm[Hg] [facility] Work Phone: [facility] 01-09-2023 12:12-0400 Body height 157.48 cm Services [facility] Work Phone: [facility] 01-09-2023 12:12-0400 Body weight 95 kg Services [facility] Work Phone: [facility] 12-31-2022 16:01-0400 Body temperature 97.7 [degF] [facility] Work Phone: [facility] 12-31-2022 16:01-0400 Diastolic blood pressure 81 mm[Hg] [facility] Work Phone: [facility] 12-31-2022 16:01-0400 Heart rate 77 /min [facility] Work Phone: [facility] 12-31-2022 16:01-0400 Respiratory rate 14 /min Services [facility] [employer] Work Phone: [facility] 12-31-2022 16:01-0400 SaO2% (BldA) [Mass fraction] 95 % Services [facility] [employer] Work Phone: [facility] 12-31-2022 16:01-0400 Systolic blood pressure 135 mm[Hg] Services [facility] [employer] Work Phone: [facility] 12-31-2022 11:50-0400 Inhaled oxygen flow rate 2 L/min Services [facility] Work Phone: [facility] 12-31-2022 06:56-0400 Body height 157.48 cm Services [facility] Work Phone: [facility] 12-31-2022 06:56-0400 Body mass index (BMI) [Ratio] 37.9 kg/m2 Services [facility] Work Phone: [facility] 12-31-2022 06:56-0400 Body weight 94 kg Services [facility] [employer] Work Phone: [facility] 11-20-2022 13:45-0500 Body height 160.02 cm Kevan Hyman Other [employer] Other 11-20-2022 13:45-0500 Body mass index (BMI) [Ratio] 38.79 kg/m2 Kevan Hyman Other [employer] Other 11-20-2022 13:45-0500 Body temperature 97.2 [degF] Kevan Hyman Other [employer] Other 11-20-2022 13:45-0500 Body weight 99.34 kg Kevan Hyman Other [employer] Other 11-20-2022 13:45-0500 Diastolic blood pressure 80 mm[Hg] Kevan Kingno Other [employer] Other 11-20-2022 13:45-0500 Respiratory rate 20 /min Kevan Kingno Other [employer] Other 11-20-2022 13:45-0500 SaO2% (BldA) [Mass fraction] 96 % Kevan Kingno Other [employer] Other 11-20-2022 13:45-0500 Systolic blood pressure 124 mm[Hg] Kevan Kingno Other [employer] Other 09-10-2022 12:00-0500 Body height 160.02 cm Eugene Top[employer]Postmates Other [employer] Other 09-10-2022 12:00-0500 Body mass index (BMI) [Ratio] 35.42 kg/m2 Eugene Bergen II Other [employer] Other 09-10-2022 12:00-0500 Body weight 90.72 kg Eugene Bharat II Other [employer] Other 09-01-2022 08:45-0500 Body temperature 97.7 [degF] [facility] Work Phone: [facility] 09-01-2022 08:45-0500 Diastolic blood pressure 77 mm[Hg] [facility] Work Phone: [facility] 09-01-2022 08:45-0500 Heart rate 88 /min [facility] Work Phone: [facility] 09-01-2022 08:45-0500 Systolic blood pressure 130 mm[Hg] [facility] Work Phone: [facility] 08-29-2022 11:40-0500 Diastolic blood pressure 81 mm[Hg] [facility] Work Phone: [facility] 08-29-2022 11:40-0500 Heart rate 85 /min [facility] Work Phone: [facility] 08-29-2022 11:40-0500 Respiratory rate 16 /min [facility] Work Phone: [facility] 08-29-2022 11:40-0500 SaO2% (BldA) [Mass fraction] 96 % [facility] Work Phone: [facility] 08-29-2022 11:40-0500 Systolic blood pressure 118 mm[Hg] [facility] Work Phone: [facility] 08-29-2022 10:33-0500 Body temperature 98.5 [degF] [facility] Work Phone: [facility] 08-29-2022 10:33-0500 Inhaled oxygen flow rate 10 L/min Services [facility] Work Phone: [facility] 08-29-2022 10:16-0500 Body height 154.94 cm Services [facility] [employer] Work Phone: [facility] 08-29-2022 10:16-0500 Body mass index (BMI) [Ratio] 37.8 kg/m2 Services [employer] Work Phone: [facility] 08-29-2022 10:16-0500 Body weight 90.71 kg Services [facility] Work Phone: [facility] 08-26-2022 14:15-0500 Body height 160.02 cm Kevan Hyman Other [employer] Other 08-26-2022 14:15-0500 Body mass index (BMI) [Ratio] 36.66 kg/m2 Kevan Hyman Other [employer] Other 08-26-2022 14:15-0500 Body temperature 97.6 [degF] Christopher Yenni Other [employer] Other 08-26-2022 14:15-0500 Body weight 93.9 kg Christopher Yenni Other [employer] Other 08-26-2022 14:15-0500 Diastolic blood pressure 69 mm[Hg] Christopher Yenni Other [employer] Other 08-26-2022 14:15-0500 Respiratory rate 20 /min Christopher Yenni Other [employer] Other 08-26-2022 14:15-0500 SaO2% (BldA) [Mass fraction] 96 % Bretter Yenni Other [employer] Other 08-26-2022 14:15-0500 Systolic blood pressure 96 mm[Hg] Christopher Yenni Other [employer] Other 05-21-2022 12:30-0400 Body height 160.02 cm Christenriqueer Yenni Other [employer] Other 05-21-2022 12:30-0400 Body mass index (BMI) [Ratio] 37.2 kg/m2 Christopher Yenni Other [employer] Other 05-21-2022 12:30-0400 Body temperature 98 [degF] Jeseopher Yenni Other [employer] Other 05-21-2022 12:30-0400 Body weight 95.26 kg Christopher Yenni Other [employer] Other 05-21-2022 12:30-0400 Diastolic blood pressure 82 mm[Hg] Kevan Kingno Other [employer] Other 05-21-2022 12:30-0400 Respiratory rate 20 /min Jesesarina Balldano Other [employer] Other 05-21-2022 12:30-0400 SaO2% (BldA) [Mass fraction] 98 % Kevan Kingno Other [employer] Other 05-21-2022 12:30-0400 Systolic blood pressure 121 mm[Hg] Kevan Knigno Other [employer] Other 02-11-2022 15:55-0400 Body height 156.21 cm Rina Vallejo MD Work Phone: NL-Xgftuuiwb-Yjzdzyu e B 101 Work Phone: 02-11-2022 15:55-0400 Body mass index (BMI) [Ratio] 32.9 kg/m2 Rina Vallejo MD Work Phone: UA-Miqfmvjjb-Eaqrtly e B 101 Work Phone: 02-11-2022 15:55-0400 Body surface area Derived from formula 1.8 m2 Rina Vallejo MD Work Phone: SV-Rhxorfnjs-Sdvtcqx e B 101 Work Phone: 02-11-2022 15:55-0400 Body weight 80.29 kg Rina Vallejo MD Work Phone: OZ-Ltltfpeou-Yokkpyr e B 101 Work Phone: 02-11-2022 15:55-0400 Diastolic blood pressure 72 mm[Hg] Rina Vallejo MD Work Phone: QV-Tbyaqegmk-Mzpsowm e B 101 Work Phone: 02-11-2022 15:55-0400 Heart rate 76 /min Rina Vallejo MD Work Phone: GE-Jqzrszorc-Xmpudsh e B 101 Work Phone: 02-11-2022 15:55-0400 Systolic blood pressure 113 mm[Hg] Rina Vallejo MD Work Phone: MD-Vbxermklq-Gdelfof e B 101 Work Phone: 12-05-2021 11:00-0400 Body height 160.02 cm Keavn Hyman Other [employer] Other 12-05-2021 11:00-0400 Body mass index (BMI) [Ratio] 39.14 kg/m2 Kevan Hyman Other [employer] Other 12-05-2021 11:00-0400 Body temperature 96.4 [degF] Kevan Hyman Other [employer] Other 12-05-2021 11:00-0400 Body weight 100.25 kg Kevan Hyman Other [employer] Other 12-05-2021 11:00-0400 Diastolic blood pressure 90 mm[Hg] Kevan Hyman Other [employer] Other 12-05-2021 11:00-0400 Respiratory rate 20 /min Kevan Hyman Other [employer] Other 12-05-2021 11:00-0400 SaO2% (BldA) [Mass fraction] 96 % Kevan Hyman Other [employer] Other 12-05-2021 11:00-0400 Systolic blood pressure 134 mm[Hg] Christopher Yenni Other [employer] Other 10-28-2021 13:45-0500 Body height 160.02 cm Hebert Carolina Other [employer] Other 10-28-2021 13:45-0500 Body mass index (BMI) [Ratio] 37.73 kg/m2 Hebert Carolina Other [employer] Other 10-28-2021 13:45-0500 Body weight 96.62 kg Hebert Carolina Other [employer] Other 08-22-2021 11:45-0500 Body height 160.02 cm Christopher Yenni Other [employer] Other 08-22-2021 11:45-0500 Body mass index (BMI) [Ratio] 36.13 kg/m2 Christopher Yenni Other [employer] Other 08-22-2021 11:45-0500 Body temperature 96 [degF] Christopher Yenni Other [employer] Other 08-22-2021 11:45-0500 Body weight 92.53 kg Christopher Yenni Other [employer] Other 08-22-2021 11:45-0500 Diastolic blood pressure 71 mm[Hg] Christopher Yenni Other [employer] Other 08-22-2021 11:45-0500 Respiratory rate 20 /min Christopher Yenni Other [employer] Other 08-22-2021 11:45-0500 SaO2% (BldA) [Mass fraction] 98 % Christenriqueer Yenni Other [employer] Other 08-22-2021 11:45-0500 Systolic blood pressure 104 mm[Hg] Bretter Yenni Other [employer] Other 06-18-2021 15:45-0400 Body height 160.02 cm Bretter Yenni Other [employer] Other 06-18-2021 15:45-0400 Body mass index (BMI) [Ratio] 35.42 kg/m2 Christenriqueer Yenni Other [employer] Other 06-18-2021 15:45-0400 Body temperature 97.4 [degF] Bretter Yenni Other [employer] Other 06-18-2021 15:45-0400 Body weight 90.72 kg Bretter Yenni Other [employer] Other 06-18-2021 15:45-0400 Diastolic blood pressure 90 mm[Hg] Bretter Yenni Other [employer] Other 06-18-2021 15:45-0400 Respiratory rate 20 /min Christenriqueer Yenni Other [employer] Other 06-18-2021 15:45-0400 SaO2% (BldA) [Mass fraction] 95 % Bretter Yenni Other [employer] Other 06-18-2021 15:45-0400 Systolic blood pressure 127 mm[Hg] Kevan Kingno Other [facility] [employer] Other 05-24-2020 16:09-0400 Body height 156.21 cm Saroj OLIVARES-Neurology-Wes tlak e [facility] Work Phone: 05-24-2020 16:09-0400 Body mass index (BMI) [Ratio] 32.9 kg/m2 Saroj OLIVARESNM-Fzgztkilp-Hjztplk e B 101 Work Phone: 05-24-2020 16:09-0400 Body surface area Derived from formula 1.8 m2 Saroj OLIVARESMJ-Rzlmkmsnv-Vkfkbm k e B 101 Work Phone: 05-24-2020 16:09-0400 Body weight 80.29 kg Saroj OLIVARES-Neurology-Wes tlak e [facility] Work Phone: 05-24-2020 16:09-0400 Diastolic blood pressure 74 mm[Hg] Saroj OLIVARESKK-Cnjvwsftr-Ktwzyol e B 101 Work Phone: 05-24-2020 16:09-0400 Heart rate 81 /min Saroj OLIVARES-Neurology-Wes tlak e B [facility] Work Phone: 05-24-2020 16:09-0400 Systolic blood pressure 110 mm[Hg] Saroj OLIVARESNR-Folbfnvsy-Atkfvkr e B 101 Work Phone: Encounters Encounter Date Encounter Type Care Provider Facility Start: 07-15-2024 End: 07-15-2024 ambulatory [facility] Start: 07-05-2024 End: 07-05-2024 Patient encounter procedure Services [facility] Work Phone: [facility]-CT Scan Main [place] Work Phone: Start: 07-05-2024 End: 07-05-2024 ambulatory Services [facility] Work Phone: [facility] Work Phone: Start: 07-04-2024 End: 07-04-2024 Telephone encounter Barbara Dobson CNA [facility] Start: 07-03-2024 End: 07-03-2024 Emergency department patient visit CRISTIAN PRASAD Facility:[facility] Start: 06-21-2024 End: 06-21-2024 ambulatory ALVINA DAILYRY Facility:[facility] Start: 06-21-2024 End: 06-21-2024 ambulatory ALVINA E SYLWIA Facility: [facility] Start: 06-17-2024 End: 06-17-2024 ambulatory MARGARET ENGLANDSIERRA Facility:[facility] Start: 06-17-2024 ambulatory Services [facility] Facility:[facility] Start: 06-17-2024 Registered Recurring Services [facility] Work Phone: [facility]Physical Therapy [place] Work Phone: Start: 06-16-2024 End: 06-16-2024 ambulatory Services [facility] Work Phone: [facility] Work Phone: Start: 06-16-2024 End: 06-16-2024 Patient encounter procedure Services [facility] Work Phone: [facility] Work Phone: Start: 06-15-2024 End: 06-15-2024 Office outpatient visit 25 minutes Huber Ramos PA-C Work Phone: [facility] Comment on above: Spinal stenosis of l umbar region with neurogenic claudication (Primary Dx); Lumbosacral spondylosis without myelopathy Start: 06-15-2024 End: 06-15-2024 ambulatory HUBER RAMOS [facility] Start: 06-14-2024 Registered Recurring Services [facility] Work Phone: [facility] [place] Work Phone: Start: 06-08-2024 ambulatory Services [facility] Facility:[facility] Start: 06-08-2024 Registered Recurring Services [facility] Work Phone: [facility] [place] Work Phone: Start: 05-25-2024 End: 05-25-2024 Office outpatient visit 10 minutes Flako Guaman MD Work Phone: [facility] Comment on above: ASCUS of cervix with negative high risk HPV; Screening for malignant neoplasm of cervix; Hx of abnormal cervical Pap smear Start: 05-25-2024 End: 05-25-2024 ambulatory FLAKO GUAMAN Not Available Start: 05-19-2024 End: 05-19-2024 ambulatory Services Family [facility] Work Phone: [facility] Work Phone: Start: 05-19-2024 End: 05-19-2024 Patient encounter procedure Services [facility] Work Phone: [facility] Work Phone: Start: 05-17-2024 Registered Recurring Services Family [facility] Work Phone: [facility] [place] Work Phone: Start: 05-13-2024 Registered Recurring Services [facility] Work Phone: [facility]Physical Therapy [place] Work Phone: Start: 05-10-2024 End: 05-10-2024 Emergency department patient visit Mayur Judd Facility:[facility] Start: 05-03-2024 End: 05-03-2024 Office outpatient visit 25 minutes Julia Bansal ENVIRONMENTAL QUALITY ANALYST - PENCIL INSPECTOR Work Phone: [facility] Comment on above: Occipital neuralgia of right side (Primary Dx); Right temporomandibular joint disorder, unspecified Start: 05-03-2024 End: 05-03-2024 ambulatory JULIA BANSAL [facility] Start: 04-28-2024 End: 04-28-2024 ambulatory [facility] Start: 04-21-2024 End: 04-21-2024 ambulatory GUILLERMO Quarles [facility] Start: 04-06-2024 End: 04-06-2024 ambulatory HUBER RAMOS [facility] Start: 03-25-2024 End: 03-25-2024 ambulatory EUGENE Keenan [facility] Start: 03-24-2024 End: 03-25-2024 Emergency department patient visit Tonny Chiu Facility:[facility] Start: 03-18-2024 End: 03-18-2024 ambulatory [facility] Start: 03-18-2024 End: 03-18-2024 Subsequent hospital visit by physician Ronen Raya MD Work Phone: [facility] Comment on above: Occipital neuralgia of right side Start: 03-18-2024 End: 03-18-2024 Telephone encounter Ronen Raya MD Work Phone: [facility] Comment on above: Medication Problem Start: 03-18-2024 End: 03-18-2024 ambulatory [facility] Start: 03-18-2024 End: 03-18-2024 Office outpatient new 60 minutes Ronen Raya MD Work Phone: [facility] Comment on above: Occipital neuralgia of right side (Primary Dx); Right temporomandibular joint disorder, unspecified Start: 03-11-2024 End: 03-11-2024 Emergency department patient visit Services [facility] Work Phone: [facility]-Emergency Room Work Phone: Start: 02-18-2024 End: 02-18-2024 ambulatory ALVINA PRYOR Facility:[facility] Start: 02-17-2024 ambulatory Meche Dukes Facility[facility] Start: 02-16-2024 End: 02-16-2024 ambulatory ALVINA PRYOR Facility:[facility] Start: 02-09-2024 End: 02-09-2024 ambulatory Services [facility] Work Phone: [facility] Work Phone: Start: 02-09-2024 End: 02-09-2024 Patient encounter procedure Services [facility] Work Phone: [facility] Work Phone: Start: 02-05-2024 End: 02-05-2024 ambulatory Services [facility] Work Phone: [facility] Work Phone: Start: 02-05-2024 End: 02-05-2024 Departed Referred Services [facility] Work Phone: [facility] - O/P Start: 02-04-2024 End: 02-05-2024 Evaluation and management of inpatient JOSE MANUEL BURGOS [facility] Start: 02-04-2024 End: 02-05-2024 Evaluation and management of inpatient Jose Manuel Burgos MD Work Phone: [facility] Med Surg Unit Comment on above: Status post Otf f undoplication (Primary Dx) Start: 02-03-2024 End: 02-08-2024 ambulatory JOSE MANUEL Osbaldo BURGOS [facility] Start: 01-22-2024 End: 01-22-2024 Patient encounter procedure Services [facility] Work Phone: [facility]-Pre-Surgical Testing Work Phone: Start: 01-22-2024 End: 01-22-2024 ambulatory Services [facility] Work Phone: [facility] Work Phone: Start: 01-22-2024 Encounter for preprocedural laboratory examination Jose Manuel Jonas [facility] Start: 01-06-2024 End: 01-06-2024 ambulatory [facility] Start: 12-22-2023 End: 12-22-2023 ambulatory Services [facility] Work Phone: [facility] Work Phone: Start: 12-22-2023 End: 12-22-2023 Departed Referred Services Family [facility] Work Phone: [facility] Start: 12-19-2023 End: 12-19-2023 ambulatory GLENNA COLLADO [facility] Start: 12-18-2023 End: 12-18-2023 ambulatory NED RIVAS [facility] Start: 12-15-2023 End: 12-15-2023 Patient encounter procedure Services [facility] Work Phone: [facility]XRay Main [place] Work Phone: Start: 12-15-2023 End: 12-15-2023 ambulatory Services Family [facility] Work Phone: [facility] Work Phone: Start: 12-11-2023 End: 12-11-2023 ambulatory Services Family [facility] Work Phone: [facility] Work Phone: Start: 12-11-2023 End: 12-11-2023 Patient encounter procedure Services Family [facility] Work Phone: [facility] Work Phone: Start: 12-09-2023 End: 12-10-2023 ambulatory [facility] Start: 12-09-2023 End: 12-09-2023 Subsequent hospital visit by physician Obi Silvestre MD Work Phone: [facility] Comment on above: Carcinoid tumor of s tomach, unspecified whether malignant (Primary Dx) Start: 12-01-2023 Refshauna Nieves RN [place] [facility] Comment on above: Lumbosacral spondylo sis without myelopathy; Disorder of sacrum Start: 11-30-2023 Telephone encounter Barbara JERNIGAN [facility] Start: 11-29-2023 End: 11-29-2023 Emergency department patient visit Services Family [facility] Work Phone: [facility]Emer[facility] Work Phone: Start: 11-23-2023 End: 11-23-2023 ambulatory FLAKO GUAMAN Not Available Start: 11-16-2023 Telephone encounter Barbara JERNIGAN [facility] Start: 11-05-2023 [facility] Work Phone: Start: 11-03-2023 Refill Viry Austin TONYA [facility] Comment on above: Lumbosacral spondylo sis without myelopathy; Disorder of sacrum Start: 10-27-2023 [facility] Work Phone: [facility] Work Phone: Start: 10-27-2023 End: 10-27-2023 Admission to same day surgery center Services Family [facility] Work Phone: [facility]Digest[facility] Work Phone: Start: 10-27-2023 End: 10-27-2023 ambulatory Services [facility] Work Phone: [facility] Work Phone: Start: 10-14-2023 End: 10-14-2023 Office outpatient visit 25 minutes Huber Ramos PA-C Work Phone: [facility] Comment on above: Spinal stenosis of l umbar region with neurogenic claudication (Primary Dx); Lumbosacral spondylosis without myelopathy Start: 10-14-2023 End: 10-14-2023 ambulatory HUBER RAMOS [facility] Start: 10-08-2023 Telephone encounter Ivelisse Thomas RN [facility] Start: 10-01-2023 End: 10-01-2023 ambulatory Kevan Hyman Other [employer] Other Start: 10-01-2023 Telephone encounter Fede Hyman [facility] Start: 09-30-2023 Refill Ivelisse Thomas RN [facility] Start: 09-23-2023 End: 09-23-2023 ambulatory Bharat Carreon Other [employer] Other Start: 09-23-2023 Telephone encounter Bharat Martínez [facility] Start: 09-21-2023 End: 09-21-2023 ambulatory Bharat Carreon Other [employer] Other Start: 09-21-2023 Office outpatient vi sit 25 minutes Bharat Carreon [facility] Start: 09-21-2023 End: 09-21-2023 Patient encounter procedure Services [facility] Work Phone: [facility] Work Phone: Start: 09-08-2023 End: 09-08-2023 Patient encounter procedure Services [facility] Work Phone: [facility] Work Phone: Start: 09-08-2023 End: 09-08-2023 ambulatory Services [facility] Work Phone: [facility] Work Phone: Start: 09-03-2023 End: 09-03-2023 ambulatory Bharat Carreon Other [employer] Other Start: 09-03-2023 Telephone encounter Bharat Martínez [facility] Start: 08-28-2023 End: 08-29-2023 ambulatory [place] Start: 08-28-2023 End: 08-28-2023 Subsequent hospital visit by physician Ken Jze254 [employer] [facility] Comment on above: Lumbar radiculopathy Start: 08-26-2023 End: 08-26-2023 ambulatory Christenriqueer Yenni Other [employer] Other Start: 08-26-2023 Office outpatient vi sit 15 minutes Christsarina Balldano [facility] Start: 08-26-2023 End: 08-26-2023 Patient encounter procedure Services [employer] Work Phone: [facility] Work Phone: Start: 08-25-2023 End: 08-25-2023 ambulatory Bharat Carreon Other [employer] Other Start: 08-25-2023 Telephone encounter Bharat Martínez G[facility] Start: 08-05-2023 End: 08-05-2023 ambulatory Kevan Yenni Other [employer] Other Start: 08-05-2023 Telephone encounter Fede Hyman [facility] Start: 08-04-2023 End: 08-04-2023 ambulatory Bharat Carreon Other [employer] Other Start: 08-04-2023 Office outpatient vi sit 15 minutes Bharat Carreon [facility] Start: 08-04-2023 End: 08-04-2023 Patient encounter procedure Services [employer] Work Phone: [facility] Work Phone: Start: 07-21-2023 End: 07-21-2023 ambulatory [facility] Ambulatory Start: 07-01-2023 End: 07-01-2023 ambulatory Christsarina Yenni Other [employer] Other Start: 07-01-2023 Telephone encounter Fede Balldano [facility] Start: 06-29-2023 End: 06-29-2023 ambulatory Bharat Carreon Other [employer] Other Start: 06-29-2023 Telephone encounter Bharat Martínez [facility] Start: 05-25-2023 End: 05-25-2023 ambulatory Bharat Carreon Other [employer] Other Start: 05-25-2023 Telephone encounter Bharat Martínez [facility] Start: 05-20-2023 End: 05-20-2023 ambulatory Kevan Hyman Other [employer] Other Start: 05-20-2023 Office outpatient vi sit 15 minutes Kevan Hyman [facility] Start: 05-04-2023 End: 05-04-2023 ambulatory Bharat Carreon Other [employer] Other Start: 05-04-2023 Office outpatient vi sit 15 minutes Bharat Carreon [facility] Start: 05-04-2023 Telephone encounter Fede Hyman [facility] Start: 05-01-2023 Office outpatient vi sit 15 minutes Eugnee Osuna MD Work Phone: HR-Mcjapvvctiul-Apbbxozx d 2700 DO Work Phone: Start: 05-01-2023 Patient encounter procedure Eugene Osuna MD Work Phone: PI-[id number]-Pslsyr 200 Work Phone: Start: 05-01-2023 ambulatory EUGENE OSUNA Facility:[id number] Start: 04-09-2023 End: 04-09-2023 ambulatory Corey Moore Other [employer] Other Start: 04-09-2023 Telephone encounter Corey Moore [facility] Gastroenter[facility] Start: 03-30-2023 End: 03-30-2023 ambulatory Kevan Hyman Other [employer] Other Start: 03-30-2023 Telephone encounter Fede Balldano [facility] Start: 03-05-2023 End: 03-05-2023 ambulatory Corey Moore Other [employer] Other Start: 03-05-2023 Patient encounter procedure Corey Moore [facility] Start: 01-21-2023 End: 01-21-2023 ambulatory Kevan Hyman Other [employer] Other Start: 01-21-2023 Telephone encounter Fede Hyman [facility] Start: 01-09-2023 End: 01-09-2023 Emergency department patient visit Services [facility] Work Phone: [facility]gency [facility] Work Phone: Start: 12-31-2022 End: 12-31-2022 Admission to same day surgery center Services [facility] Work Phone: [facility]-Surgery Center [place] Start: 12-17-2022 End: 12-17-2022 ambulatory Services [facility] Work Phone: [facility] Work Phone: Start: 12-17-2022 End: 12-17-2022 Patient encounter procedure Services [facility] [employer] Work Phone: [facility]-Pre-Surgical Testing Work Phone: Start: 12-16-2022 End: 12-16-2022 ambulatory Brettaltonia BallYenni Other [employer] Other Start: 12-16-2022 Telephone encounter Fede winters Yenni [facility] Start: 12-15-2022 End: 12-15-2022 ambulatory Corey Moore Other [employer] Other Start: 12-15-2022 Telephone encounter Corey Moore [facility] Start: 12-11-[address] DOCTOR MISC Facility :[facility] Start: 12-08-2022 End: 12-08-2022 ambulatory Anne Limon MD Facility[facility] Start: 11-21-2022 End: 11-21-2022 ambulatory Services [facility] Work Phone: [facility] Work Phone: Start: 11-21-2022 End: 11-21-2022 Patient encounter procedure Services [facility] Work Phone: [facility]-MRI [address] Work Phone: Start: 11-20-2022 End: 11-20-2022 ambulatory Kevan Hyman Other [employer] Other Start: 11-20-2022 Office outpatient vi sit 15 minutes Kevan Hyman [facility] Start: 11-12-2022 End: 11-12-2022 ambulatory Kevan Hyman Other [employer] Other Start: 11-12-2022 Telephone encounter Fede Hyman [facility] Start: 11-11-2022 End: 11-12-[address] EULALIA LEAL . Facility:[facility] Start: 11-05-2022 End: 11-05-2022 ambulatory Corey Moore Other [employer] Other Start: 11-05-2022 Telephone encounter Corey ROSENTHAL [facility] Start: 10-29-2022 End: 10-29-2022 ambulatory Services Family [facility] Work Phone: [facility] Work Phone: Start: 10-29-2022 End: 10-29-2022 Patient encounter procedure Services Family [facility] Work Phone: [facility]-CT [address] Work Phone: Start: 10-22-2022 Chart Update Eugene altamirano MD Work Phone: BP-Szkzjpsmemyi-Ceqxzb 210 Work Phone: Start: 10-21-2022 End: 10-21-2022 Departed Referred Services [facility] Work Phone: [facility] Start: 10-07-[address] Eugene Osuna Facility:[facility] Start: 10-07-2022 Office outpatient vi sit 15 minutes Eugene Osuna MD Work Phone: OZ-Edaquvhbcooz-Lprduj 210 Work Phone: Start: 10-07-2022 Patient encounter procedure Eugene Osuna MD Work Phone: YL-Wgwrbgspywsk-Xksbxzif [place] [address] DO Work Phone: Start: 10-06-2022 End: 10-06-2022 ambulatory Kevan Hyman Other [employer] Other Start: 10-06-2022 Telephone encounter Fede Hyman [facility] Start: 09-13-2022 End: 09-13-2022 ambulatory Eugene Bergen II Other [employer] Other Start: 09-13-2022 Encounter by sheela harding Eugene Bergen II [facility] Start: 09-10-2022 End: 09-10-2022 ambulatory Eugene Bergen II Other [employer] Other Start: 09-10-2022 Office outpatient ne w 45 minutes Eugene Bharat II [facility] Start: 09-04-2022 End: 09-04-2022 Patient encounter procedure Services Family [facility] Work Phone: [facility] Work Phone: Start: 09-03-2022 End: 09-04-[address] ELADIO HECTOR Facility: Start: 09-01-2022 End: 09-01-2022 ambulatory Services Family [facility] Work Phone: [facility] Work Phone: Start: 09-01-2022 End: 09-01-2022 Discharged Recurring Services Family [facility] Work Phone: [facility]-Infusion Therapy - O/P Start: 08-29-2022 End: 08-29-2022 Admission to same day surgery center Services [facility] [employer] Work Phone: [facility]-Surgery Center [place] Start: 08-27-2022 End: 08-27-2022 ambulatory Services [facility] Work Phone: [facility] Work Phone: Start: 08-27-2022 End: 08-27-2022 Patient encounter procedure Services [facility] Work Phone: [facility] Pei-Zhw-Kjzhxhpx Testing Start: 08-26-2022 End: 08-26-2022 ambulatory Kevan Hyman Other [employer] Other Start: 08-26-2022 Office outpatient vi sit 15 minutes Kevan Hyman [facility] Start: 07-29-2022 End: 07-29-2022 ambulatory Kevan Hyman Other [employer] Other Start: 07-29-2022 Telephone encounter Fede Hyman [facility] Start: 07-27-2022 Chart Update Eugene altamirano MD Work Phone: SK-Ymucludxijpx-Hoadca 210 Work Phone: Start: 07-24-2022 End: 07-24-2022 ambulatory Corey Moore Other [employer] Other Start: 07-24-2022 Telephone encounter Corey ROSENTHAL [facility] Start: 07-22-2022 End: 07-30-[address] ZAMUDIO [facility] Facility: Start: 07-21-2022 AUDIT Rina silva MD Work Phone: XO-Juejaixyk-Xrnnghpu [address] Work Phone: Start: 07-17-2022 Rx Renewal Rina silva MD Work Phone: GQ-Eutjjkphl-GKNHQ [place] [address] Work Phone: Start: 07-08-[address] Eugene Osuna Facility:[facility] Start: 07-08-2022 Office outpatient vi sit 15 minutes Eugene Osuna MD Work Phone: QY-Qukbihplimwl-Yvoueb 210 Work Phone: Start: 07-08-2022 Patient encounter procedure Eugene Osuna MD Work Phone: QE-Opuvmdjtfldl-Simbrklo [place] [address] DO Work Phone: Start: 05-30-2022 End: 05-30-2022 Patient encounter procedure Services [facility] Work Phone: [facility]-Ultrasound [place] Start: 05-21-2022 End: 05-21-[address] EULALIA LEAL . [place] [employer] Other Start: 05-21-2022 Office outpatient vi sit 15 minutes Kevan Hyman [facility] Start: 05-07-2022 End: 05-07-2022 ambulatory Kevan Hyman Other [employer] Other Start: 05-07-2022 Telephone encounter Fede Hyman [facility] Start: 04-09-2022 End: 04-09-2022 ambulatory Kevan Hyman Other [employer] Other Start: 04-09-2022 Telephone encounter Fede Hyman [facility] Start: 03-20-2022 End: 03-20-2022 ambulatory Hebert Carolina Other [employer] Other Start: 03-20-2022 Telephone encounter Hebert Carolina [facility] Start: 03-18-2022 End: 03-18-2022 ambulatory Hebert Carolina Other [employer] Other Start: 03-18-2022 Telephone encounter Hebert Carolina [facility] Start: 03-11-2022 End: 03-11-2022 ambulatory Christopher Yenni Other [employer] Other Start: 03-11-2022 Encounter by sheela Mathur Yenni [facility] Start: 03-10-2022 End: 03-10-2022 ambulatory Christopher Yenni Other [employer] Other Start: 03-10-2022 Telephone encounter eFde winters Yenni [facility] Start: 03-05-2022 End: 03-05-2022 ambulatory Hebert Carolina Other [employer] Other Start: 03-05-2022 Telephone encounter Hebert Carolina [facility] Start: 02-11-2022 Office outpatient vi sit 25 minutes Rina Vallejo MD Work Phone: [facility] [address] Work Phone: Start: 01-29-2022 End: 01-29-2022 ambulatory Christopher Yenni Other [employer] Other Start: 01-29-2022 Telephone encounter Fede winters Yenni [facility] Start: 01-25-2022 End: 01-25-2022 ambulatory Hebert Carolina Other [employer] Other Start: 01-25-2022 Telephone encounter Hebert Carolina [facility] Start: 01-06-2022 End: 01-06-2022 ambulatory Christopher Yenni Other [employer] Other Start: 01-06-2022 Telephone encounter Fede Kingno [facility] Start: 12-05-2021 End: 12-05-2021 ambulatory Kevan Balldano Other [employer] Other Start: 12-05-2021 Office outpatient vi sit 15 minutes Kevan Balldano [facility] Start: 11-21-2021 End: 11-21-2021 ambulatory Kevan Yenni Other [employer] Other Start: 11-21-2021 Telephone encounter Hebert Carolina [facility] Start: 11-08-2021 End: 11-08-2021 ambulatory Kevan Yenni Other [employer] Other Start: 11-08-2021 Telephone encounter Fede Kingno [facility] Start: 10-28-2021 End: 10-28-2021 ambulatory Hebert Serafindeo Other [employer] Other Start: 10-28-2021 Office outpatient vi sit 25 minutes Hebert Carolina [facility] Start: 10-25-2021 End: 10-25-2021 ambulatory Hebert Serafindeo Other [employer] Other Start: 10-25-2021 Telephone encounter Hebert Serafindeo [facility] Start: 10-07-2021 End: 10-07-2021 ambulatory Bretter Yenni Other [employer] Other Start: 10-07-2021 Telephone encounter Fede Balldano [facility] Start: 10-03-2021 End: 10-03-2021 ambulatory Bretter Yenni Other [employer] Other Start: 10-03-2021 Telephone encounter Fede Kingno [facility] Start: 08-22-2021 End: 08-22-2021 ambulatory Kevan Hyman Other [employer] Other Start: 08-22-2021 Office outpatient vi sit 25 minutes Kevan Hyman [facility] Start: 07-25-2021 End: 07-25-2021 ambulatory Hebert Carolina Other [place] [employer] Other Start: 07-25-2021 Telephone encounter Hebert Carolina [facility] Start: 07-19-2021 Office outpatient vi sit 25 minutes Presley Greenberg MD Work Phone: GU-Uhfyevaedgdh-Ckytovjr [place] [address] DO Work Phone: Start: 06-30-2021 Chart Update Eugene altamirano MD Work Phone: NW-Gublzkhjvhuu-Birbje 210 Work Phone: Start: 06-24-2021 Patient encounter procedure Eugene Osuna MD Work Phone: KR-Ecyiymvljdgn-Yptsewnq [place] [address] DO Work Phone: Start: 06-21-2021 AUDIT Eugene altamirano MD Work Phone: NZ-Ygosqujhdgnp-Jxxwiu 210 Work Phone: Start: 06-18-2021 Office outpatient vi sit 15 minutes Jeseenriquelatonia Kingno [facility] Start: 05-29-2021 AUDIT Eugene altamirano MD Work Phone: WV-Thjgoydnfdkl-Cijatt 210 Work Phone: Start: 01-29-2021 Office outpatient vi sit 25 minutes Adriana Desai MD Work Phone: XS-Sjxxfejbfjod-Eheyrgfp [place] [address] DO Work Phone: Start: 10-16-2020 Patient encounter procedure Adriana OLIVARESZZ-Zxloffctuazm-Rtuujikd Work Phone: Start: 08-27-2020 Patient encounter procedure Adriana OLIVARESCD-Wlfndphfnjax-Kpvouene Work Phone: Start: 08-13-2020 Patient encounter procedure Adriana Desai GV-Gwaszyjgklcz-Ljgxukyf Work Phone: Start: 07-30-2020 Patient encounter procedure Adriana Desai AT-Oznwxdbhdtjj-Rwwohvvq Work Phone: Start: 07-17-2020 Patient encounter procedure Adriana Desai OA-Hbirsivzeuob-Olxvfztp Work Phone: Start: 07-02-2020 Patient encounter procedure Adriana Desai TN-Kltanyjngose-Klojqagl Work Phone: Start: 07-02-2020 Patient encounter procedure Adriana Desai AJ-Peqgxxfrulbl-Pxauahkn Work Phone: Start: 06-25-2020 Patient encounter procedure Adriana Desai DE-Fkogzcyqxqhy-Anzgnmos Work Phone: Start: 06-12-2020 Patient encounter procedure Adriana Desai DE-Uykforjfcvft-Azfptxzl Work Phone: Start: 05-24-2020 Patient encounter procedure Saroj Burnett MD WY-Xgoffjnds-Vojyuqxp [address] Work Phone: Start: 05-14-2020 Patient encounter procedure Saroj Burnett MD JI-Emjqxuywf-Litsluxs [address] Work Phone: Start: 04-23-2020 Patient encounter procedure Saroj Burnett MD IW-Wffillzex-Pdhsydkq B 101 Work Phone: Start: 04-19-2020 Patient encounter procedure Saroj Burnett MD HW-Ecqpoxoil-Xbajtvsi B 101 Work Phone: Start: 03-19-2020 Patient encounter procedure Saroj Burnett MD YP-Wofpiecno-Yrmhdzsd B [address] Work Phone: Start: 02-20-2020 Patient encounter procedure Saroj Burnett MD HK-Tbebxxtur-Zypbojdh [address] Work Phone: Start: 02-13-2020 Patient encounter procedure Eugene Osuna GM-Fmuihodajvsj-Haajazfl Work Phone: Start: 01-02-2020 Patient encounter procedure [place] Lakediego Escam[place] VG-Ireujywwnqsi-Eumtwyzx Work Phone: Start: 10-24-2019 Patient encounter procedure [place] Lakedie[place] Escam[place] WO-Wnanyqxasbjw-Ajunnyqs Work Phone: Start: 09-27-2019 Patient encounter procedure [place] Lakediego [place]am[place] RB-Essxkmnluvaz-Mwzovlny Work Phone: Start: 09-20-2019 Patient encounter procedure [place] Lakediego Escamilla FH-Vkwfmyjejdqi-Lvokyitb Work Phone: Start: 06-27-2019 Patient encounter procedure [place] Lakediego Escamilla JA-Mgbrxiprtgrw-Ztmzenos Work Phone: Start: 05-18-2019 Patient encounter procedure [place] Lakediego Escamilla UO-Rmpdzqyikqoj-Jobyycgl Work Phone: Start: 04-25-2019 Patient encounter procedure [place] Lakedie[place] Escamilla KE-Iiuatfjdjvar-Bmvykris Work Phone: Start: 02-21-2019 Patient encounter procedure [place] Lakediego Escamilla ZK-Dgdhmqfqrssm-Thsukxdh Work Phone: Start: 01-03-2019 Patient encounter procedure [place] Lakediego Escamilla LL-Jpmurdvibkxr-Zzbihwvk Work Phone: Start: 12-06-2018 Patient encounter procedure [place] Lakediego Escamilla FS-Xtoegjhoarts-Vheqfown Work Phone: Start: 11-23-2018 Patient encounter procedure [place] Lakediego Escamilla CY-Dotibmfsvhco-Rypsjgzz Work Phone: Start: 11-22-2018 Patient encounter procedure [place] Lakediego Escamilla TR-Kihccpemfyoi-Dzbljhow Work Phone: Start: 09-27-2018 Patient encounter procedure [place] Lakediego Escamilla PB-Jzzzzwzcyyuu-Ljjingka Work Phone: Start: 08-24-2018 Patient encounter procedure [place] Lakediego Escamilla ZL-Shyhmsrlgekv-Mwbiqgjx Work Phone: Start: 07-20-2018 Patient encounter procedure [place] Lakediego Escamilla PQ-Kapnldbitqzk-Ckqknekz Work Phone: Start: 06-21-2018 Patient encounter procedure Marianna OLIVARESGX-Frqbpvgdxoxg-Zgjstepf Work Phone: Start: 05-24-2018 Patient encounter procedure Marianna OLIVARESOZ-Drojeneoiloz-Beipcoqn Work Phone: Start: 03-29-2018 Patient encounter procedure Marianna OLIVARESUY-Ymgzmsufgaol-Tsxxqlqv Work Phone: Start: 03-01-2018 Patient encounter procedure Marianna OLIVARESDS-Eavzfpgopuvh-Gilbwhoi Work Phone: Start: 02-16-2018 Patient encounter procedure Marianna OLIVARESVD-Gveygmrrtrpy-Ayhdktau Work Phone: Start: 02-01-2018 Patient encounter procedure Marianna OLIVARESLR-Czeygidhuula-Cnievhvm Work Phone: Patient encounter status Adriana webb MD Work Phone: ZV-Jxlrxizsvgqb-Czmscnmn [place] [address] DO Work Phone: Procedures Date Procedure Procedure Detail Performing Clinician Start: 07-05-2024 Computed tomography of abdomen and pelvis with contrast Services [facility] Work Phone: Start: 05-25-2024 SENDOUT TEST MISCELLANEOUS [facility] Jane Guaman MD Work Phone: Start: 03-11-2024 Plain X-ray of left hand Services [facility] Work Phone: Start: 03-11-2024 Plain X-ray of left wrist Services [facility] Work Phone: Start: 02-04-2024 Radiologic exam chest single view Jose Manuel Burgos MD Work Phone: Start: 02-04-2024 End: 02-04-2024 Laps surg esopg/gstr fundoplasty Jose Manuel Burgos MD Work Phone: Start: 01-22-2024 Antibody screen Jose Manuel Burgos Comment on above: Order Comment: Date of Surgery: [id number] Result Comment: PERF ORMED BY: [facility] [address] [place] [address] PATHOLOGIST SUPERVISOR [employer] DIANA CAMPO M.D. Start: 12-15-2023 X-ray of right knee Services [employer] Work Phone: Start: 12-09-2023 PULSE OXIMETRY, CONTINUOUS [facility] Start: 12-09-2023 DISCHARGE PATIENT [facility] Start: 12-09-2023 Esophagogastroduodenoscopy [facility] Start: 12-09-2023 SURGICAL PATHOLOGY EXAM [facility] Start: 12-09-2023 PLACE IN OUTPATIENT/HOSPITAL AMBULATORY SURGERY [facility] Start: 12-09-2023 PULSE OXIMETRY, CONTINUOUS Obi Silvestre MD Work Phone: Start: 12-09-2023 Esophagogastroduodenoscopy transoral diagnostic Obi Silvestre MD Work Phone: Start: 11-29-2023 SARS-CoV-2, Influenza & RSV (PCR) Servic es [employer] Work Phone: Start: 10-27-2023 [facility] [employer] Work Phone: Start: 09-08-2023 Dual energy X-ray absorptiometry Service s [employer] Work Phone: Start: 09-08-2023 End: 09-08-2023 Screening mammography of bilateral breasts Services [employer] Work Phone: Start: 08-28-2023 EMG AND NERVE CONDUCTION RINA VALLEJO Start: 08-28-2023 EMG AND NERVE CONDUCTION Rina Vallejo MD Work Phone: Start: 07-19-2023 H/O: artificial joint Presence of right artificial shoulder joint [facility] 1 Start: 01-09-2023 Computed tomography of abdomen and pelvis with contrast Services [employer] Work Phone: Start: 12-31-2022 Aerobic microbial culture Services [employer] Work Phone: Start: 12-31-2022 Anaerobic microbial culture Services Fam armani [employer] Work Phone: Start: 12-31-2022 Investigation of transfusion reaction Services [employer] Phone: Start: 12-31-2022 Total hysterectomy via vaginal approach [facility] [employer] Phone: Start: 11-21-2022 MRI of right knee [facility] [employer] Phone: Start: 10-29-2022 CT of chest without contrast Services [employer] Phone: Start: 09-04-2022 Screening mammography of bilateral breasts [facility] [employer] Phone: Start: 08-29-2022 Bacteria identification test Services [employer] Phone: Start: 08-29-2022 Hysteroscopy [facility] [employer] Phone: Start: 08-27-2022 SARS Antigen (LFIA) Services [employer] Phone: Start: 05-30-2022 Ultrasonography of limb [facility] [employer] Phone: Start: 08-27-2021 Mammography [facility] 1 Start: 01-15-2021 Adult depression screening assessment Ivelisse Thomas RN Start: 04-23-2020 Echocardiography Start: 02-13-2020 Cul bact xcpt urine blood/stool aerobic isol Eugene Osuna Start: 01-03-2020 CT Up Extremity without Contrast Marianna Escamilla Bacteria identification test Services [employer] Phone: H/O: artificial joint Status pos t replacement of right shoulder joint Saroj Burnett MD History of Anterior Spinal Diskectomy, Osteophytectomy Cerv Interspace Marianna Escamilla Prosthetic arthropla sty of shoulder Marianna Escamilla Repair of musculoten dinous cuff of shoulder Marianna Escamilla Plan of Treatment Date Care Activity Detail Author Start: 06-18-2031 DTaP,Tdap and Td Vaccines (2 - Td or Tdap) DTaP,Tdap and Td Vaccines (2 - Td or Tdap) [facility] Start: 06-18-2031 DTaP/Tdap/Td vaccine (2 - Td or Tdap) DTaP/Tdap/Td vaccine (2 - Td or Tdap) [facility] Start: 06-18-2031 DTaP/Tdap/Td Vaccine s (2 - Td or Tdap) DTaP/Tdap/Td Vaccines (2 - Td or Tdap) [facility] Start: 2030 Pneumococcal Vaccine : Pediatrics (0 to 5 Years) and At-Risk Patients (6 to 64 Years) (3 of 3 - PPSV23 or PCV20) Pneumococcal Vaccine: Pediatrics (0 to 5 Years) and At-Risk Patients (6 to 64 Years) (3 of 3 - PPSV23 or PCV20) [facility] Start: 09-08-2025 Screening for malign ant neoplasm of breast Breast cancer screen [facility] Start: 09-08-2025 Screening for osteoporosis Bone Density Scan [facility] Start: 06-15-2025 Adult BMI Screening Adult BMI Screen ing [facility] Start: 06-15-2025 Tobacco Screening Tobacco Screening [facility] Start: 2025 RSV Immunization age d 60 or older (1 - 1-dose 60+ series) RSV Immunization aged 60 or older (1 - 1-dose 60+ series) [facility] Start: 01-17-2025 Screening for malign ant neoplasm of cervix [facility] Start: 11-03-2024 End: 11-03-2024 Patient encounter procedure 11/03/2024 12:30 PM EST Office Visit [facility] [address] [place] [address] Julia Bansal, GAVIN - PENCIL INSPECTOR [address] [place] [address] [facility] Start: 10-26-2024 End: 10-26-2024 Patient encounter procedure 10/26/2024 10:00 AM EST Office Visit [facility] [address] [place] [address] Flako Guaman MD [address] [place] [address] [facility] Start: 10-14-2024 Tobacco Screening Tobacco Screening [facility] Start: 09-08-2024 Screening for malign ant neoplasm of breast Mammogram [facility] Start: 08-25-2024 Tobacco Screening Tobacco Screening [facility] Start: 08-03-2024 End: 08-03-2024 Patient encounter procedure 08/03/2024 12:45 PM EST Office Visit [facility] [address] [place] [id number] Huber Ramos, REMEDIOS [address] [place] [address] [facility] Start: 07-22-2024 End: 07-22-2024 Admission to same day surgery center 07/22/2024 8:00 AM EST - 07/22/2024 8:08 AM EST Surgery [facility] [address] [phone] Ned Rivas MD [address] [address] INJECTION BLOCK EPIDURAL CAUDAL STEROID [95543 (CPT )] [facility] Comment on above: INJECTION BLOCK EPID URAL CAUDAL STEROID [68392 (CPT )] Start: 07-22-2024 End: 07-22-2024 Njx dx/ther sbst intrlmnr lmbr/sac w/img gdn INJECTION BLOCK EPIDURAL CAUDAL STEROID Spinal stenosis of lumbar region with neurogenic claudication 07/22/2024 8:00 AM EST [facility] Start: 07-22-2024 Subsequent hospital visit by physician 07/22/2024 8:00 AM EST Hospital Encounter [facility] [address] [place] [phone] Ned Rivas MD [address] [address] [facility] Start: 05-26-2024 Adult BMI Screening Adult BMI Screen ing [facility] Start: 05-15-2024 Influenza vaccination [facility] Start: 05-03-2024 End: 05-03-2024 Patient encounter procedure 05/03/2024 2:00 PM EDT Office Visit [facility] [address] [place] [phone] Julia Bansal, ENVIRONMENTAL QUALITY ANALYST - PENCIL INSPECTOR [address] [place] [phone] [facility] Start: 04-28-2024 FUV, Provider: Eugene Osuna, Status: Pen, Time: 11:00 AM FUV, Provider: Eugene Osuna, Status: Pen, Time: 11:00 AM WW-Yszfwgtbbtpw-Spcm an 200 Work Phone: Start: 04-28-2024 End: 04-28-2024 Patient encounter procedure 04/28/2024 11:00 AM EDT Office Visit [facility] [address] [place] [address] Eugene Osuna MD [address] [place] [address] Dr Meche Mayer, [facility] [address] [place], [place] [id number] [facility] Start: 04-20-2024 End: 04-20-2024 Patient encounter procedure 04/20/2024 11:00 AM EDT Office Visit [facility] [address] [place] [phone] Rina Vallejo MD [address] [facility] [address], [address] [place] [address] [facility] Start: 03-18-2024 End: 03-18-2025 XR Cervical spine 4 or 5 Views [facility] Work Phone: Comment on above: Expected: 03/18/2024 , Expires: 03/18/2025 Once for 1 Occurrenc es starting 03/18/2024 until 03/18/2024 Start: 03-11-2024 Plain X-ray of left hand XR hand LT 2V [facility] Start: 03-11-2024 Plain X-ray of left wrist XR wrist LT min 3V* [facility] Start: 03-11-2024 XR Hand - left 2 Views [facility] Start: 03-11-2024 XR Wrist - left GE 3 Views [facility] Start: 02-05-2024 Esophageal hiatus he rnia repair OR Paraesophageal Hernia Repair (Not Applicable) [facility] Start: 01-06-2024 End: 01-06-2024 Patient encounter procedure 01/06/2024 11:15 AM EDT Office Visit [facility] [address] [place] [address] Huber Ramos, PA-C [address] [facility] [place], [place] [id number] [facility] Start: 12-18-2023 End: 12-18-2023 Admission to same day surgery center 12/18/2023 9:46 AM EDT - 12/18/2023 9:53 AM EDT Surgery [facility] [address] [place] [phone] Ned Rivas MD [address] [place] [address] INJECTION BLOCK EPIDURAL CAUDAL STEROID [38880 (CPT )] [facility] Comment on above: INJECTION BLOCK EPID URAL CAUDAL STEROID [13110 (CPT )] Start: 12-18-2023 End: 12-18-2023 Njx dx/ther sbst intrlmnr lmbr/sac w/img gdn INJECTION BLOCK EPIDURAL CAUDAL STEROID Spinal stenosis of lumbar region with neurogenic claudication 12/18/2023 9:46 AM EDT [facility] Start: 12-18-2023 Subsequent hospital visit by physician 12/18/2023 9:46 AM EDT Hospital Encounter [facility] [address] [place] [address] Ned Rivas MD [address] [place] [address] [facility] Procedures Start: 12-11-2023 Patient referral [facility] Work Phone: Start: 12-11-2023 Subsequent hospital visit by physician 12/11/2023 Hospital Encounter [facility] [address] [place] [id number] Ned Rivas MD [address] [place] [address] [facility] Start: 11-06-2023 Patient referral [facility] Work Phone: Start: 10-27-2023 [facility] Start: 10-14-2023 End: 10-14-2023 Patient encounter procedure 10/14/2023 10:45 AM EST Office Visit [facility] [address] [facility] [place] [id number] Huber Ramos PA-C [address] [place] [address] [facility] Start: 09-01-2023 COVID-19 Vaccine (4 - Pfizer series) COVID-19 Vaccine (4 - Pfizer series) [facility] Start: 08-27-2023 Screening for osteoporosis Bone Density Scan [facility] [employer] Start: 05-05-2023 FUV, Provider: Eugene Osuna, Status: Pen, Time: 1:00 PM FUV, Provider: Eugene Osuna, Status: Pen, Time: 1:00 PM LQ-Iwqobpnrsmeo-Gglv [facility] 130 DO Work Phone: Start: 01-09-2023 Bacteria identified in Blood by Culture Blood Culture [facility] Start: 01-09-2023 Bacteria identified in Urine by Culture Urine Culture [facility] Start: 12-31-2022 Hospital admission [facility] Start: 12-31-2022 End: 12-31-2022 [facility] Start: 10-07-2022 FUV, Provider: Eugene Osuna, Status: Pen, Time: 1:45 PM FUV, Provider: Eugene Osuna, Status: Pen, Time: 1:45 PM AY-Kpteaasvobfj-[place] [address] DO Work Phone: Start: 08-29-2022 End: 08-29-2022 [facility] Start: 08-27-2022 Screening for malign ant neoplasm of breast Mammogram [facility] Start: 01-15-2022 Depression Screening Depression [facility] Start: 06-27-2021 SELEEN, Provider : Rina Vallejo, Status: Pen, Time: 10:00 AM VIRFUVJOHN, Provider: Rina Vallejo, Status: Pen, Time: 10:00 AM DY-Tfiyokqfwbnw-Sxbj an 210 Work Phone: Start: 06-24-2021 SELENE, Provider : Rina Vallejo, Status: Pen, Time: 4:00 PM VIRFUVJOHN, Provider: Rina Vallejo, Status: Pen, Time: 4:00 PM LC-Hbfuzhqunvrt-Mutl an 210 Work Phone: Start: 06-24-2021 FUV, Provider: Eugene Osuna, Status: Pen, Time: 10:45 AM FUV, Provider: Eugene Osuna, Status: Pen, Time: 10:45 AM LR-Jqkuueueuxwq-Cuec an 210 Work Phone: Start: 05-06-2021 FUV, Provider: Eugene Osuna, Status: Pen, Time: 10:30 AM FUV, Provider: Eugene Osuna, Status: Pen, Time: 10:30 AM DT-Rtpwhjqdptol-Vkpj [place] 130 DO Work Phone: Start: 05-24-2020 Autonomic Testing Autonomic Testing RB-Wdycemdyt-Zpovpsb e B 101 Work Phone: Start: 05-24-2020 EEG, Routine EEG, Routine MG-Neurolo gy-[place] 101 Work Phone: Start: 04-19-2020 Echocardiography Echocardiogram MG-N eurology-[place] 101 Work Phone: Start: 01-03-2020 CT Up Extremit y without Contrast NY-Zmbpellqljbw-Omxk denis Work Phone: Start: 2010 Screening for malign ant neoplasm of colon [facility] Start: 01-29-2000 Diabetes screen Diabetes screen [facility] Start: 1995 Screening for malign ant neoplasm of cervix [facility] Start: 1986 Screening for malign ant neoplasm of cervix [facility] Start: 01-29-1984 Hepatitis B Vaccines (1 of 3 - 19+ 3-dose series) Hepatitis B Vaccines (1 of 3 - 19+ 3-dose series) [facility] Start: 1983 Adult BMI Follow Up Plan Adult BMI Follow Up Plan [facility] Start: 1983 Diabetes mellitus screening Diabetes Screening [facility] Start: 1983 Diabetes: Estimated Glomerular Filtration Rate for Kidney Health Diabetes: Estimated Glomerular Filtration Rate for Kidney Health [facility] Start: 1983 Diabetes: Urine Albumin-Creatinine Ratio for Kidney Health Diabetes: Urine Albumin-Creatinine Ratio for Kidney Health [facility] Start: 1983 Hepatitis C screening [facility] Start: 01-29-1980 HIV screening HIV screen [facility] Start: 1977 Depression Monitoring Depression Mon itoring [facility] Start: 1977 Depression Screening Depression Scre ening [facility] Start: 1975 Diabetic foot examination Diabetes: Foot Exam [facility] Start: 1975 Glaucoma screening Diabetes: R etinopathy Screening [facility] Start: 1975 Lipid panel Lipids [facility] Start: 1975 Preventive dental service Diabetes: Dental Exam [facility] Start: 1966 MMR Vaccines (1 of 1 - Standard series) MMR Vaccines (1 of 1 - Standard series) [facility] Start: 1965 Hemoglobin A1c measurement Diabetes: Hemoglobin A1C [facility] Start: 1965 Hepatitis B vaccine (1 of 3 - 3-dose series) Hepatitis B vaccine (1 of 3 - 3-dose series) [facility] Start: 1965 Hepatitis B Vaccines (1 of 3 - 3-dose series) Hepatitis B Vaccines (1 of 3 - 3-dose series) [facility] Start: 1965 HIV screening HIV Screening [facility] Start: 1965 Lipid panel Lipid Panel [facility] Start: 1965 Screening for malign ant neoplasm of colon [facility] Start: 1965 Yearly Adult Physical Yearly Adult P hysical [facility] CT Abdomen and Pelvi s W contrast IV [facility] End: 12-09-2023 Moderate Sedation Moderate Sedation Procedures Routine Once for 1 Occurrences starting 12/09/2023 until 12/09/2023 [facility] Work Phone: Comment on above: Once for 1 Occurrenc es starting 12/09/2023 until 12/09/2023 Njx dx/ther sbst intrlmnr lmbr/sac w/img gdn INJECTION BLOCK EPIDURAL CAUDAL STEROID Spinal stenosis of lumbar region with neurogenic claudication [facility] Njx dx/ther sbst intrlmnr lmbr/sac w/img gdn INJECTION BLOCK EPIDURAL CAUDAL STEROID Spinal stenosis of lumbar region with neurogenic claudication [facility] Njx dx/ther sbst intrlmnr lmbr/sac w/img gdn INJECTION BLOCK EPIDURAL CAUDAL STEROID Spinal stenosis of lumbar region with neurogenic claudication [facility] Oxygen therapy [Mini [facility] Data Set] Initiate Oxygen Therapy Protocol Respiratory Care Routine As Needed until discontinued starting 02/04/2024 [facility] Comment on above: As Needed until disc ontinued starting 02/04/2024 Patient Education [facility] Work Phone: Patient referral [facility] Work Phone: End: 12-09-2023 Pulse oximetry, spot Pulse oximetry, spot Respiratory Care Routine Once for 1 Occurrences starting 12/09/2023 until 12/09/2023 [facility] Service Area Work Phone: Comment on above: Once for 1 Occurrenc es starting 12/09/2023 until 12/09/2023 Surgical pathology study [facility] Work Phone: Comment on above: Release Upon Orderin g for 1 Occurrences starting 12/09/2023, 1 completed [facility] Work Phone: NEGATED: Highlighted row has been ruled out! Planned Goals not documented BD-Xuijxmclffrq-[place] Work Phone: Immunizations Immunization Date Immunization Notes Care Provider [facility] 07-07-2023 Influenza, injectabl e, Madin Evonne Canine Kidney, preservative free, quadrivalent [facility] [place] [place] 1 [facility] Work Phone: 07-07-2023 Pfizer COVID-19 vaccine, Fall 2022, 12 years and older, (30mcg/0.3mL) [facility] [place] 1 [facility] Work Phone: 07-07-2023 influenza virus vaccine, unspecified formulation Ronen Raya MD Work Phone: [facility] 06-18-2022 COVID-19 Pfizer (bivalent) Kevan Hyman Other [facility] 06-18-2022 Influenza, injectabl e, Madin [place] Canine Kidney, preservative free, quadrivalent Eugene Osuna MD Work Phone: CE-Fmzbxoprfxpr-Cpw man 200 Work Phone: 02-17-2022 COVID-19 mRNA, Comirnaty (Pfizer) Services [facility] Work Phone: [facility] 02-17-2022 COVID-19 Pfizer Kevan Hyman Other [facility] [employer] Other 07-10-2021 COVID-19 Vaccine Pfizer - Documentation Purposes Only [place] Yenni Other [facility] 06-18-2021 influenza, injectabl e, quadrivalent, contains preservative Eugene Osuna MD Work Phone: [facility] 06-18-2021 tetanus toxoid, reduced diphtheria toxoid, and acellular pertussis vaccine, adsorbed Eugene Osuna MD Work Phone: [facility] 12-07-2020 Pfizer-BioNTech COVID-19 Vacc 30 MCG/0.3ML Intramuscular Suspension Eugene Osuna MD Work Phone: [facility] 11-19-2020 COVID-19 Vaccine Pfizer - Documentation Purposes Only Kevan Hyman Other [facility] 11-16-2020 Pfizer-BioNTech COVID-19 Vacc 30 MCG/0.3ML Intramuscular Suspension Eugene Osuna MD Work Phone: [facility] 09-19-2020 zoster vaccine recombinant Eugene Osuna MD Work Phone: RI-Cetrclngwdcc-[place] [address] DO Work Phone: 07-20-2020 influenza, injectabl e, quadrivalent, contains preservative Eugene Osuna MD Work Phone: [facility] 07-16-2020 influenza, injectabl e, quadrivalent, preservative free [address] Work Phone: 07-16-2020 zoster vaccine recombinant Eugene Osuna MD Work Phone: [facility] 06-21-2020 pneumococcal polysaccharide vaccine, 23 valent Eugene Osuna MD Work Phone: VD-Crmzwpxqfdqz-[place] [address] DO Work Phone: 07-11-2019 influenza, injectabl e, quadrivalent, contains preservative Eugene Osuna MD Work Phone: [facility] 07-11-2019 pneumococcal conjuga te vaccine, 13 valent Eugene Osuna MD Work Phone: FD-Vnqpovbtrteg-[place] [address] DO Work Phone: 07-20-2018 influenza virus vaccine, unspecified formulation Services [facility] Work Phone: [facility] 07-20-2018 influenza, injectabl e, quadrivalent, contains preservative [facility] [place] 1 [facility] Work Phone: 07-20-2018 influenza, injectable,quadrivalen t, preservative free, pediatric Christopher Yenni Other [employer] Other 07-13-2018 influenza, injectabl e, quadrivalent, contains preservative Eugene Osuna MD Work Phone: [facility] 07-14-2017 influenza, injectable,quadrivalen t, preservative free, pediatric Christopher Yenni Other [employer] Other 07-14-2017 influenza virus vaccine, unspecified formulation Services [facility] Work Phone: [facility] 07-14-2017 influenza, injectabl e, quadrivalent, contains preservative Eugene Osuna MD Work Phone: [place]-Yaxypytzpuml[place] [address] DO Work Phone: 07-07-2016 influenza, seasonal, injectable, preservative free Eugene Osuna MD Work Phone: [facility] 06-19-2015 influenza, high dose seasonal, preservative-free Eugene Osuna MD Work Phone: TI-Inojqmkxntoo-[place]mp[place] [address] DO Work Phone: 08-08-2014 influenza, seasonal, injectable, preservative free Eugene Osuna MD Work Phone: SC-Soidqfgmntzs-[place] [address] DO Work Phone: 10-20-2013 influenza, seasonal, injectable, preservative free Eugene Osuna MD Work Phone: OI-Cmlcciqsvdwl-Xfd [place] 130 DO Work Phone: NEGATED: Highlighted row has not occurred!03-11-2024 tetanus toxoid, reduced diphtheria toxoid, and acellular pertussis vaccine, adsorbed [facility] Work Phone: [facility] Payers Date Payer Category Payer Private Health Insurance [id number] 2022 Self-pay [id number] 2022 Medicaid [id number] 2022 Medicaid [facility] [id number] 2018 Unknown 1965 Unknown [id number] 2.840.1.984187.3.579.2. 356 1965 Unknown [id number] 2.840.1.239821.3.579.2. 356 1965 Unknown [id number] 2.16840.1.777070.3.579.2. 196 1965 Unknown [id number] 2.16840.1.726496.3.579.2. 593 1965 Unknown [id number] 2.16.840.1.951054.3.579.2. 593 1965 Unknown [id number] 2.16.840.1.411457.3.579.2. 593 1965 Unknown [id number] 2.16.840.1.810060.3.579.2. 593 1965 Unknown [id number] 2.16.840.1.388583.3.579.2. 593 1965 Unknown [id number] 2.16.840.1.341900.3.579.2. 356 1965 Unknown [id number] 2.16.840.1.328272.3.579.2. 356 1965 Unknown [id number] 2.16.840.1.908051.3.579.2. 356 1965 Unknown [id number] 2.16.840.1.865839.3.579.2. 1244 1965 Unknown [id number] 2.16.840.1.338029.3.579.2. 1245 1965 Unknown [id number] 2.16.840.1.842296.3.579.2. 1243 1965 Unknown [id number] 2.16.840.1.459848.3.579.2. 182 1965 Unknown [id number] 2.16.840.1.239273.3.579.2. 182 1965 Unknown [id number] 2.16.840.1.008318.3.579.2. 727 1965 Unknown [id number] 2.16.840.1.439009.3.579.2. 727 1965 Unknown [id number] 2.16.840.1.006074.3.579.2. 1242 1965 Unknown [id number] 2.16.840.1.095451.3.579.2. 1242 1965 Unknown [id number] 2.16.840.1.763385.3.579.2. 72 1965 Unknown [id number] 2.16.840.1.564553.3.579.2. 727 1965 Unknown [id number] 2.16.840.1.339900.3.579.2. 72 1965 Unknown [id number] 2.16.840.1.320005.3.579.2. 1259 1965 Unknown [id number] 2.16.840.1.729385.3.579.2. 1259 1965 Unknown [id number] 2.16.840.1.882682.3.579.2. 72 1965 Unknown [id number] 2.840.1.110351.3.579.2. 1965 Unknown [id number] 2.16.840.1.211014.3.579.2. 1965 Unknown [id number] 2.16.840.1.681539.3.579.2. 1965 Unknown [id number] 2.16.840.1.668216.3.579.2. 72 1965 Unknown [id number] 2.840.1.615441.3.579.2. 1965 Unknown [id number] 2.16.840.1.336664.3.579.2. 1965 Unknown [id number] 2.16.840.1.281764.3.579.2. 1965 Unknown [id number] 2.16.840.1.608194.3.579.2. 1286 1965 Unknown [id number] 2.16.840.1.851083.3.579.2. 1286 1965 Unknown [id number] 2.16.840.1.199355.3.579.2. 1285 1965 Unknown [id number] 2..840.1.768387.3.579.2. 1285 1965 Unknown [id number] 2..840.1.083888.3.579.2. 1285 1965 Unknown [id number] 2.840.1.377959.3.579.2. 1285 1965 Unknown [id number] 2.840.1.619596.3.579.2. 1285 1965 Unknown [id number] 2.840.1.323991.3.579.2. 1285 1965 Unknown [id number] 2.840.1.532184.3.579.2. 1285 1965 Unknown [id number] 2.840.1.710738.3.579.2. 1285 1965 Unknown [id number] 2.840.1.250186.3.579.2. 1285 1965 Unknown [id number] 2.840.1.328561.3.579.2. 1285 1959 Medicaid [id number] 1959 Unknown [id number] 2.840.1.064639.19 Unknown [id number] 2.840.1.584520.3.579.2. 531 Unknown [id number] 2.16.840.1.347087.3.579.2. 531 Unknown [id number] 2.16.840.1.778931.3.579.2. 531 Unknown [id number] 2.16.840.1.518393.3.579.2. 531 Unknown [id number] 2.16840.1.138031.3.579.2. 531 Unknown [id number] 2.16.840.1.234419.3.579.2. 531 Unknown [id number] 2.16.840.1.800709.3.579.2. 531 Unknown [id number] 2.16.840.1.708320.3.579.2. 531 Unknown [id number] 2.16.840.1.667764.3.579.2. 531 Unknown [id number] 2.16.840.1.553991.3.579.2. 531 Unknown [id number] 2.16.840.1.347780.3.579.2. 531 Social History Date Type Detail Facility Start: 09-25-2020 End: 07-21-2023 Current every day smoker Current every day smoker DA-Npoejpzfhkhq-Uppjm [facility] 130 DO Work Phone: Start: 09-25-2020 End: 07-21-2023 Sex Assigned At [employer] Other Start: 11-11-2021 End: 07-09-2022 Tobacco smoking status HIIS Ex-smoker (finding) [facility] Start: 1965 Sex Assigned At Female F [facility] Start: 01-09-2023 End: 05-23-2023 Tobacco smoking status HIIS Never smoked tobacco (finding) [facility] Start: 07-09-2022 End: 07-21-2023 Tobacco use and exposure Smokeless tobacco non-user [facility] Work Phone: Start: 07-21-2023 End: 12-09-2023 Alcohol intake Lifetime non-drinker (finding) [facility] Work Phone: Start: 08-17-2018 Gender identity Identifies as female gender (finding) [facility] Work Phone: Start: 10-13-2021 Sexual orientation Heterosexual (fin ding) [facility] Work Phone: Start: 08-18-2023 End: 12-09-2023 Exposure to SARS-CoV-2 (event) Not sure [facility] Work Phone: Start: 09-14-1987 History of tobacco use [facility] [employer] [facility] Adolescent depressio n screening assessment 0 [facility] [employer] Start: 07-02-[address] [facility] Start: 09-14-1987 History of tobacco use Cigarette Smoker [employer] Start: 02-05-2024 End: 05-25-2024 Alcohol intake Ex-drinker (finding) [employer] Has the electric, gas, oil, or water Domee threatened to shut off services in your home in past 12Mo No [employer] (I/We) worried whether (my/our) food would run out before (I/we) got money to buy more. Never true [employer] Start: 02-03-2024 Alcohol Comment rare [employer] Start: 1965 Sex Assigned At Not on file B ON [employer] Start: 03-18-2024 Alcoholic beverage intake Current drinker of alcohol (finding) [employer] Start: 03-18-2024 Alcohol Comment twice per year [employer] Start: 05-03-2024 Alcohol Comment [facility] Start: 05-19-2024 Tobacco smoking status NHIS Current some day smoker [facility] How often to you hav e a drink containing alcohol? Never [facility] Start: 07-30-2016 Sex Female (finding) [facility] NEGATED: Highlighted row - - FP-Qvamaigtgpvk-Cazx l arturo Work Phone: NEGATED: Highlighted row [facility] Medical Equipment Procedure Code Equipment Code Equipment Original Text Equipment Identifier Dates EGD, with [place] pH monitoring device placement Gastrointestinal telemetric monitoring system [id number] FDA Start: 10-27-2023 [place], [employer] site, [place], 4.75mm X 24.5m Case [id number] Start: 12-04-2017 Comment on above: Description: Convert ed from [facility]. Please see archived information for full log information. Screw, Locking B one, Rsp, 5.0mm X 14mm Case [id number]_[facility] Start: 11-11-2018 Comment on above: Description: Convert ed from [facility]. Please see archived information for full log information. Spacer Altivate Reverse 8mm Small Case [id number]_[facility] Start: 04-26-2020 Comment on above: Description: Convert ed from [facility]. Please see archived information for full log information. Head, Glenoid, R sp, W/ Retaining Screw, 4mm X 32mm Case [id number]_[facility] Start: 11-11-2018 Comment on above: Description: Convert ed from [facility]. Please see archived information for full log information. Spacer, Altivate Reverse, 8mm, Small Case [id number]_[facility] Start: 04-26-2020 Comment on above: Description: Convert ed from [facility]. Please see archived information for full log information. Small Socket Ins ert 32mm Neutral +4 Case [id number]_[facility] Start: 11-11-2018 Comment on above: Description: Convert ed from [facility]. Please see archived information for full log information. Baseplate, Gleno id, Rsp, P2-Coated Case [id number]_[facility] Start: 11-11-2018 Comment on above: Description: Convert ed from [facility]. Please see archived information for full log information. Screw, Locking B one, Rsp, 5 X 26mm Case [id number]_[facility] Start: 11-11-2018 Comment on above: Description: Convert ed from [facility]. Please see archived information for full log information. Small Socket Ins ert 32mm Neutral Case [id number]_[facility] Start: 04-26-2020 Comment on above: Description: Convert ed from [facility]. Please see archived information for full log information. Additional Information:SMALL SOCKET INSERT 32MM NEUTRAL Stem, Humeral, A ltivate Reverse, 8 X 108mm Case [id number]_[facility] Start: 11-11-2018 Comment on above: Description: Convert ed from [facility]. Please see archived information for full log information. Head, Glenoid, R sp, W/ Retaining Screw, 32mm, Neutral Case [id number] Start: 04-26-2020 Comment on above: Description: Convert ed from [facility]. Please see archived information for full log information. Goals Date Patient Goal Desired Activity /State Functional Status Date Assessment Result Facility 01-22-2024 Functional status Patient at [facility] Work Phone: 12-31-2022 Functional status Patient at [facility] Work Phone: NEGATED: Highlighted row Functional performance Functional status health issues are not documented Disease [facility] Work Phone: Mental Status Date Assessment Result Facility 01-22-2024 Cognitive function Cognitive Sta tus Patient at [facility] Work Phone: 12-31-2022 Cognitive function Cognitive Sta tus Patient at [facility] Work Phone: NEGATED: Highlighted row Cognitive function [Interpretation] Cognitive status health issues are not documented Disease [facility] Work Phone: Clinical Notes 04-26-2020 to 07-04-2024 Telephone Encounter - Barbara Dobson CNA - 07/04/2024 8:12 AM EDTTelephone Encounter - Barbara Dobson CNA - 07/04/2024 8:12 AM Angeles Ramos PA-C - 06/15/2024 10:30 AM EDTPatient Instructions Note Date & Type Note Facility 07-04-2024 Miscellaneous Notes [place] called to report that she is having surgery on her foot 4. Is she still able to have her procedure 07/22. documented in this encounter [facility] 07-04-2024 Telephone encounter Note [place] called to report that she is having surgery on her foot 114. Is she still able to have her procedure 07/22. [facility] 07-03-2024 Note ED Patient Education Note Orthopedics How to Use a Cast Shoe A cast shoe is a stiff shoe that is worn over a cast. You may need to wear a cast shoe after a foot or leg injury. It helps you walk, and it keeps the cast clean and dry. Your health care provider may give you a cast shoe after you are allowed to use your injured foot or leg to support (bear) your weight. Cast shoes are made of various materials. They usually have a flat, firm, cushioned bottom. What are the risks? A cast shoe that is not worn properly can lead to cast damage. To protect the cast: ? Properly position and adjust the shoe to support the cast. ? Bear weight on the cast shoe only as told by your health care provider. How to use a cast shoe ? Wear the cast shoe as told by your health care provider. ? Follow the drill instructor's instructions for use. ? Tighten and properly adjust the cast shoe so it is secure on your foot. ? Do not wear the cast shoe while you are resting at home or sleeping. ? Keep the cast shoe clean and dry. ? Do not wear any other kind of footwear until your health care provider says that you can. How to care for your cast shoe ? Use mild soap and water to clean your cast shoe. ? Make sure your cast shoe is completely clean and dry before you put it over your cast. Contact a health care provider if: ? Your cast gets wet or damaged. ? You have foot pain when you wear the cast shoe. ? You have foot pain when you move. ? Your foot pain is getting worse or the pain is not getting better over time. Summary ? A cast shoe is a rigid shoe that you wear over a cast. ? A cast shoe helps you walk, and it keeps your cast clean and dry. ? A cast shoe that is not worn properly can lead to cast damage. This information is not intended to replace advice given to you by your health care provider. Make sure you discuss any questions you have with your health care provider. Document Revised: 06/24/2021 Document Reviewed: 06/24/2021 Elsevier Patient Education ? 2023 [employer] Foot Contusion A foot contusion is a deep bruise to the foot. Contusions happen when you get an injury to soft tissues, such as the muscle fibers under your skin. The injury causes bleeding under the skin. The skin over a contusion may change colors more than once while the foot heals. Minor injuries will cause a painless contusion. More severe contusions may be painful and swollen for a few weeks. What are the causes? A foot contusion is often caused by a hard hit or direct force to your foot. This may be from having a heavy object fall on your foot. What are the signs or symptoms? Symptoms of a foot contusion include: ? Swelling of the foot. ? Pain and tenderness. ? Changes in skin color. The skin may turn from blue to purple to yellow. How is this diagnosed? A foot contusion may be diagnosed based on your medical history and a physical exam. You may also need tests to check for other injuries. These may include: ? An X-ray. This may be done to check for broken bones (fractures). ? A CT scan or MRI. This may be done to see if the tissues that connect bones to each other (ligaments) have been torn or injured. How is this treated? The best treatment for a foot contusion is rest, ice, pressure (compression), and raising (elevating) the injured foot. This is called RICE therapy. You may be given: ? An elastic wrap to support and compress your foot. ? Medicines to help relieve pain. ? Crutches, if your swelling or pain is severe. Follow these instructions at home: RICE therapy ? Rest the injured area. Try to avoid standing or walking while your foot is painful. ? If told, put ice on the injured area. ? Put ice in a plastic bag. ? Place a towel between your skin and the bag. ? Leave the ice on for 20 minutes, 2?3 times a day. ? If your skin turns bright red, remove the ice right away to prevent skin damage. The risk of damage is higher if you cannot feel pain, heat, or cold. ? If told, use an elastic wrap to apply light compression to the injured foot. Make sure the wrap is not too tight. Remove and reapply it as told by your health care provider. If your toes become numb or turn cold and blue, take the wrap off and put it on more loosely. ? Elevate the injured foot above the level of your heart while you are sitting or lying down. ? You may also move your toes often to reduce stiffness and swelling. General instructions ? Take yexl-ofp-fikyddr and prescription medicines only as told by your provider. ? Do not use the injured foot to support your body weight until your provider says that you can. Use crutches as told by your provider. ? Do not use any products that contain nicotine or tobacco. These products include cigarettes, chewing tobacco, and vaping devices, such as e-cigarettes. These can delay healing. If you need help q (more content not included)... [facility] 06-21-2024 Note Patient Education Obstetrics and Gynecology Overactive Bladder, Adult Overactive bladder is a condition in which a person has a sudden and frequent need to urinate. A person might also leak urine if he or she cannot get to the bathroom fast enough (urinary incontinence). Sometimes, symptoms can interfere with work or social activities. What are the causes? Overactive bladder is associated with poor nerve signals between your bladder and your brain. Your bladder may get the signal to empty before it is full. You may also have very sensitive muscles that make your bladder squeeze too soon. This condition may also be caused by other factors, such as: ? Medical conditions: ? Urinary tract infection. ? Infection of nearby tissues. ? Prostate enlargement. ? Bladder stones, inflammation, or tumors. ? Diabetes. ? Muscle or nerve weakness, especially from these conditions: ? A spinal cord injury. ? Stroke. ? Multiple sclerosis. ? Parkinson's disease. ? Other causes: ? Surgery on the uterus or urethra. ? Drinking too much caffeine or alcohol. ? Certain medicines, especially those that eliminate extra fluid in the body (diuretics). ? Constipation. What increases the risk? You may be at greater risk for overactive bladder if you: ? Are an older adult. ? Smoke. ? Are going through menopause. ? Have prostate problems. ? Have a neurological disease, such as stroke, dementia, Parkinson's disease, or multiple sclerosis (MS). ? Eat or drink alcohol, spicy food, caffeine, and other things that irritate the bladder. ? Are overweight or obese. What are the signs or symptoms? Symptoms of this condition include a sudden, strong urge to urinate. Other symptoms include: ? Leaking urine. ? Urinating 8 or more times a day. ? Waking up to urinate 2 or more times overnight. How is this diagnosed? This condition may be diagnosed based on: ? Your symptoms and medical history. ? A physical exam. ? Blood or urine tests to check for possible causes, such as infection. You may also need to see a health care provider who specializes in urinary tract problems. This is called a urologist. How is this treated? Treatment for overactive bladder depends on the cause of your condition and whether it is mild or severe. Treatment may include: ? Bladder training, such as: ? Learning to control the urge to urinate by following a schedule to urinate at regular intervals. ? Doing Kegel exercises to strengthen the pelvic floor muscles that support your bladder. ? Special devices, such as: ? Biofeedback. This uses sensors to help you become aware of your body's signals. ? Electrical stimulation. This uses electrodes placed inside the body (implanted) or outside the body. These electrodes send gentle pulses of electricity to strengthen the nerves or muscles that control the bladder. ? Women may use a plastic device, called a pessary, that fits into the vagina and supports the bladder. ? Medicines, such as: ? Antibiotics to treat bladder infection. ? Antispasmodics to stop the bladder from releasing urine at the wrong time. ? Tricyclic antidepressants to relax bladder muscles. ? Injections of botulinum toxin type A directly into the bladder tissue to relax bladder muscles. ? Surgery, such as: ? A device may be implanted to help manage the nerve signals that control urination. ? An electrode may be implanted to stimulate electrical signals in the bladder. ? A procedure may be done to change the shape of the bladder. This is done only in very severe cases. Follow these instructions at home: Eating and drinking ? Make diet or lifestyle changes recommended by your health care provider. These may include: ? Drinking fluids throughout the day and not only with meals. ? Cutting down on caffeine or alcohol. ? Eating a healthy and balanced diet to prevent constipation. This may include: ? Choosing foods that are high in fiber, such as beans, whole grains, and fresh fruits and vegetables. ? Limiting foods that are high in fat and processed sugars, such as fried and sweet foods. Lifestyle ? Lose weight if needed. ? Do not use any products that contain nicotine or tobacco. These include cigarettes, chewing tobacco, and vaping devices, such as e-cigarettes. If you need help quitting, ask your health care provider. General instructions ? Take wljd-chs-ppsyihu and prescription medicines only as told by your health care provider. ? If you were prescribed an antibiotic medicine, take it as told by your health care provider. Do not stop taking the antibiotic even if you start to feel better. ? Use any implants or pessary as told by your health care provider. ? If needed, wear pads to absorb urine leakage. ? Keep a log to track how much and when you drink, and when you need to urinate. This will help your health care (more content not included)... [facility] 06-15-2024 History of Present illness Narrative [facility] [address] [place] [address] Patient: Georgia Junior Sex: female : 1965 Age: 59 y.o. PCP: PCP Not In System 06/15/2024 Georgia Junior is here for a(n) follow up for low back pain. Pain returned in the low back feels the same last injection worked great. Date of onset of pain: 2015 , pain has lasted greater than 3 months. Chief Complaint Patient presents with Back Pain HPI: PT/HEP 07/2018 Back: 08/23/21 caudal w/ 75-80% relief 12/06/21 Gregorio L 2/3 3/4 MBB w/80% relief Right L 2/3, 3/4 radiofrequency ablation on 02/14/2022 and left L 2/3, 3/4 radiofrequency ablation with 80% relief 06/27/22 Gregorio [facility] with 80% relief for 1 week then 30% relief that is slowly fading. 08/15/22 Lt L 4/5 5/ RFA w/80% relief 12/18/23 Caudal w/70% relief continued Back Pain This is a chronic problem. The current episode started more than 1 year ago (@2016). The problem occurs constantly. The problem has been gradually worsening since onset. The pain is present in the lumbar spine, gluteal and sacro-iliac. The quality of the pain is described as aching and burning. The pain does not radiate. The pain is at a severity of 8/10. The pain is moderate. The pain is Worse during the night. Exacerbated by: pushing, pulling, bending, lifting. Stiffness is present All day. Associated symptoms include weakness (generalized). Pertinent negatives include no bladder incontinence, bowel incontinence, chest pain, fever, headaches, leg pain, numbness or tingling. Risk factors include obesity and sedentary lifestyle. Treatments tried: PT 07/2018 w/increased pain, Lyrica, Baclofen, TENS unit w/slight relief, NSAID (ibuprofen, diclofenac) BioMed w/mild relief, voltaren gel. The treatment provided moderate relief. The effect of pain on patient's ADLS: Moderate Impairment. Past Medical History: Diagnosis Date Anxiety Arthritis Asthma Bipolar disorder [place] [place] Black-out (not amnesia) Chronic pain disorder COPD (chronic obstructive pulmonary disease) ([facility] [place]) Depression Diverticulitis of colon Fibromyalgia, primary Fracture, tooth #3 GERD (gastroesophageal reflux disease) Hyperlipidemia Hypertension Joint pain Low back pain Narcolepsy Obesity Osteopenia Peptic ulceration RLS (restless legs syndrome) Rotator cuff injury right is torn again Stress fracture 2018 Left foot x2 Tardive dyskinesia Tremors of nervous system mouth, hands Visual impairment Past Surgical History: Procedure Laterality Date ARTHROSCOPY KNEE DEBRIDEMENT. TRICOMPARTMENTAL CHONDROPLASTY Left 12/10/2021 Performed by Presley Duffy MD at [facility] EXPRESS ARTHROSCOPY MENISCECTOMY MEDIAL AND LATERAL KNEE Left 12/10/2021 Performed by Presley Duffy MD at [facility] EXPRESS ARTHROSCOPY MENISCECTOMY KNEE Right 02/11/2023 Performed by Guillermo Rodriguez DO at [facility] BUNIONECTOMY Right CERVICAL SPINE SURGERY two surgeries 203 1nd 2017 CHOLECYSTECTOMY DEBRIDEMENT LEG Left 06/15/2019 FRACTURE SURGERY Left foot HYSTERECTOMY INJECTION BLOCK EPIDURAL CAUDAL STEROID N/A 12/18/2023 Performed by Ned Rivas MD at [facility] INJECTION BLOCK EPIDURAL CAUDAL STEROID N/A 08/23/2021 Performed by Ned Rivsa MD at [facility] INJECTION BLOCK NERVE MEDIAL BRANCH bilat L 2/3, 3/4 Bilateral 12/06/2021 Performed by Ned Rivas MD at [facility] INJECTION BLOCK NERVE MEDIAL BRANCH Right L 4/5,5/ mbb Right 11/23/2020 Performed by Ned Rivas MD at [facility] HYPOGASTRIC Bilateral 06/27/2022 Performed by Ned Rivas MD at [facility] HYPOGASTRIC SHPB N/A 10/05/2020 Performed by Ned Rivas MD at [facility] MEDIAL BRANCH NERVE BLOCK Bilateral L 2/3, 3/4 Bilateral 07/22/2019 Performed by Ned Rivas MD at [facility] INJECTION MEDIAL BRANCH NERVE BLOCK Bilateral L 2/3, 3/4 Bilateral 06/03/2019 Performed by Ned Rivas MD at [facility] MEDIAL BRANCH NERVE BLOCK: bilat L45 51 Bilateral 11/02/2017 Performed by Ned Rivas MD at [facility] MEDIAL BRANCH NERVE BLOCK: bilat L45 51 Bilateral 10/02/2017 Performed by Ned Rivas MD at [facility] SACROILIAC NERVE: bilat Bilateral 04/12/2018 Performed by Ned Rivas MD at [facility] SI JOINT Bilateral SI Joint Bilateral 01/20/2020 Performed by Ned Rivas MD at [facility] INJECTION SI JOINT Bilateral SI Joint Bilateral 11/04/2019 Performed by Ned Rivas MD at [facility] INJECTION SI JOINT BIlateral SI joint Bilateral 02/22/2018 Performed by Ned Rivas MD at [facility] KNEE ARTHROSCOPY Left repair meniscal tear and fibular head Left lumbar L4/5, L5/S1 radiofrequency ablation Left 01/11/2018 Performed by Ned Rivas MD at [facility] RADIO FREQUENCY ABLATION Left L 4/5, 5/1 Left 08/03/2020 Performed by Ned Rivas MD at [facility] RADIO FREQUENCY ABLATION Left SI Joint Left 04/13/2020 Performed by Ned Rivas MD at [facility] RADIO FREQUENCY ABLATION Right L 2/3, 3/4 Right 09/02/2019 Performed by Ned Rivas MD at [facility] RADIO FREQUENCY ABLATION RIght L 4/5, 5/1 Right 04/22/2019 Performed by Ned Rivas MD at [facility] RADIO FREQUENCY ABLATION Right SI Joint Right 05/18/2020 Performed by Ned Rivas MD at [facility] RADIO FREQUENCY ABLATION: left L45 51rfa Left 10/08/2018 Performed by Ned Rivas MD at [facility] RADIO FREQUENCY ABLATION: right L45 51rfa Right 09/24/2018 Performed by Ned Rivas MD at [facility] RADIOFREQUENCY ABLATION SPINAL Left L 2/3, 3/4 Left 02/28/2022 Performed by Ned Rivas MD at [facility] RADIOFREQUENCY ABLATION SPINAL Left L 4/5, 5/1 Left 08/15/2022 Performed by Ned Rivas MD at [facility] RADIOFREQUENCY ABLATION SPINAL right L 2/3, 3/4 Right 02/14/2022 Performed by Ned Rivas MD at [facility] RADIOFREQUENCY ABLATION SPINAL Right L 4/5, 5/1 Right 01/25/2021 Performed by Ned Rivas MD at [facility] REDUCTION MAMMAPLASTY 10/10/2019 REDUCTION MAMMAPLASTY REVERSE TOTAL SHOULDER ARTHROPLASTY Right 10/2018 RIGHT lumbar L4/5, L5/S1 radiofrequency ablation Right 12/28/2017 Performed by Ned Rivas MD at [facility] ROTATOR CUFF REPAIR Right TONSILLECTOMY TUBAL LIGATION WRIST FRACTURE SURGERY Right Allergies Allergen Reactions Latuda [Lurasidone] muscle cramps TD Dupixent Pen [Dupilumab] Other (See Comments) Swelling BLE Face gets hot and red Penicillamine Hives Cephalexin Rash Hydrochlorothiazide Rash Morphine Rash Norflex [Orphenadrine Citrate] Rash Penicillin Rash Phenoperidine Hcl Rash Pyridimal Headache Sulfa (Sulfonamide Antibiotics) Rash Vicodin [Hydrocodone-Acetaminophen] Nausea and Vomiting Vistaril [Hydroxyzine Hcl] Rash Family History Problem Relation Age of Onset Epilepsy Mother Depression Mother Hypertension Mother Cancer Mother ovarian Cancer Father brain Depression Sister Hypertension Sister Depression Brother Hypertension Brother Anesthesia problems Daughter COPD Maternal Grandfather COPD Paternal Grandfather Social History Socioeconomic History Marital status: Legally Spouse name: Not on file Number of children: Not on file Years of education: Not on file Highest education level: Not on file Occupational History Not on file Tobacco Use Smoking status: Former Smokeless tobacco: Never Vaping Use Vaping status: Never Used Substance and Sexual Activity Alcohol use: Not on file Comment: rarely Drug use: No Comment: used marijuana in the past Sexual activity: Defer Other Topics Concern Coffee No Tea No Carbonated Beverages Yes Chocolate No Social History Narrative Not on file Social Determinants of Health Financial Resource Strain: Not on file Food Insecurity: No Food Insecurity (06/15/2024) Hunger Screening Food Insecurity - Worry: Never True Food Insecurity - Inability: Never True Transportation Needs: No Transportation Needs (02/04/2024) Received from [email or web address] PRAPARE - Transportation Lack of Transportation (Medical): No Lack of Transportation (Non-Medical): No Physical Activity: Not on file Stress: Not on file Social Connections: Not on file Interpersonal Safety: Not on file Housing Instability: Low Risk (02/04/2024) Received from [email or web address] Housing Stability Vital Sign Unable to Pay for Housing in the Last Year: No Number of Places Lived in the Last Year: 1 Unstable Housing in the Last Year: No Review of Systems Constitutional: Negative for chills and fever. HENT: Negative. Eyes: Negative. Respiratory: Negative for cough and shortness of breath. Cardiovascular: Negative for chest pain. Gastrointestinal: Negative. Negative for bowel incontinence. Endocrine: Negative. Genitourinary: Negative for bladder incontinence. Weak bladder Musculoskeletal: Positive for back pain. Skin: Negative. Allergic/Immunologic: Negative. Neurological: Positive for weakness (generalized). Negative for tingling, numbness and headaches. Hematological: Negative. Psychiatric/Behavioral: Negative. Vital Signs: BP 139/86 Pulse 80 Ht 157.5 cm (5' 2 ) Wt 82.1 kg (181 lb) LMP 08/13/2013 (Approximate) SpO2 99% BMI 33.11 kg/m Physical Exam: GENERAL - Healthy patient that appears stated age. HEENT - Normocephalic / Atraumatic, Extraoccular movements intact, trachea midline, thyroid within normal limits. CV - pulse regular, Warm extremities with appropriate color of nailbeds. RESP - No obvious wheezing, No Shortness of Breath, No overexertion response to exam maneuvers. COORDINATION - remains intact. PSYCH - Alert and Oriented x4, Attentive and appropriate, constitutionally normal, displays normal mood and affect per situation, answered questions appropriately during examination, demonstrated appropriate attention during discussion, demonstrated appropriate cognitive reasoning and understanding of the medical condition by asking appropriate questions regarding the diagnosis and risks/benefits/alternatives of treatment modalities. No obvious deficits in memory, reasoning, or intellect. Lumbar: SKIN - No rashes or bruising in the area of the patient s pain. LYMPH NODES - demonstrate no obvious enlargement. EXTREMITIES - Lower extremities are warm, with minimal edema and palpable pulses. Tenderness to palpation noted in the lumbar spine and paraspinal musculature. Pain is elicited with flexion, extension, and lateral rotation of the lumbar spine. Range of motion is diminished with these motions due to pain. Facet palpation is noted to be somewhat tender and facet loading maneuvers are mildly positive, but not concordant with the patient s normal pain complaints. STRENGTH - noted to be 5 out of 5 all muscle groups bilateral lower extremities including muscles involving hip flexion and abduction, knee flexion and extension, as well as foot dorsiflexion and plantarflexion. No notable atrophy, fasciculations or spasm. SENSORY - No notable sensory deficits in the bilateral lower extremities to touch or pinprick in all dermatomal distributions. Straight Leg Raise is Negative. Gait is normal. Assessment/Treatment Plan: Georgia was seen today for back pain. Diagnoses and all orders for this visit: Spinal stenosis of lumbar region with neurogenic claudication - Case request operating room: INJECTION BLOCK EPIDURAL CAUDAL STEROID Lumbosacral spondylosis without myelopathy Refill Lodine 200 mg BID The medications I have prescribed have been reviewed for medication interactions/contraindications and/or for upcoming procedures: continue current medication regimen without any changes. Caudal Epidural Steroid Injection - under fluoroscopy with the use of contrast dye (unless contraindicated) It is hopeful that the described procedure will provide symptomatic pain relief. It is felt to be medically necessary noting that the patient has tried and failed more conservative modalities of therapy and this is the next most appropriate step. The procedure was described in detail to the patient as well as the potential benefits of pain reduction alongside risks of the procedure and alternatives. Risks were described as including, but not limited to bleeding, infection, nerve damage, spinal cord injury, paralysis, stroke, dural puncture headache, and medication reaction. The patient expressed understanding regarding the risks and benefits and wishes to proceed. It was explained that Caudal injections often require a series of 2-3 before significant relief is noted, but we will determine after each injection if another one is indicated. Depending on the amount and duration of relief obtained from the injection, additional modalities of therapy including medications and physical therapy may need to be utilized alongside or following the injections. The patient would like to continue receiving epidural injections as they provide 50% or more relief with sustained improvement in both pain and physical function after the injection lasting for a minimum of three months. Follow up 2 weeks after procedure. DISCUSSION: Treatment options discussed with patient and all questions answered to patient's satisfaction. Discussed the rules and regulations surrounding prescription of opioids and compliance at length. Failure to follow the rules and regulation will result in tapering and discontinuation of medications if applicable. It is noted that the patient did have good response from the previously performed procedure. It is felt that the patient would benefit from an additional procedure of the same nature in that the same symptoms have returned. It is hopeful that this additional injection will provide additional benefit and duration when combined with the previous injection. Prescribed medication that requires intensive monitoring for toxicity: Lyrica. The spine model was demonstrated and lumbar MRI was reviewed and used to explain the condition. OARRS: Reviewed. Follow up 2 weeks after procedure. Scribe Statement: Scribed for and in the presence of HUBER RAMOS PA-C by Lucie Jung RN. Provider Statement: IHUBER PA-C, personally performed the services described in the documentation, as scribed by Lucie Jung RN in my presence, and it is both accurate and complete. Lcuie Jung RN 06/15/24 [id number] Huber Ramos PA-C 06/15/24 [id number] documented in this encounter [facility] [employer] 06-15-2024 Instructions Lucie Jung RN - 06/15/2024 10:30 AM EDT Epidural Steroid Injection (ANAM) / Nerve Root Injection / Nerve Block These procedure(s) involve the injection of a steroid and anesthetic into the epidural space or the nerve sheath that is both diagnostic and potentially therapeutic for alleviating discomfort of the legs and arms secondary to compression of the respective nerves due to bulging discs, bone spurs and other potential causes. Steroids are potent anti-inflammatory drugs that act to decrease the swollen and inflamed nerves thus relieving your clinical symptoms. How Long Will This Procedure Last? The extent and duration of pain relief may depend on the amount of inflammation and how many areas are involved. Other coexisting factors may be responsible for your pain. You and your physician will discuss expected results of procedure(s). After Your Injection You may experience soreness and tenderness at the area of treatment. This pain may not occur until later today after the numbing medicine wears off. The steroid can take 3-5 days to work and provide noticeable improvement. Activity You may feel temporary numbness, weakness or tingling: In the neck, arm, or fingertips (if your procedure was done in your neck) In the legs (if your procedure was done in your lower back) These symptoms are normal, and should subside within 3-4 hours. In that time, be careful to avoid falls. As a safety precaution, you must have a hazardous materials driver after a lumbar nerve root injection, even if you do not receive sedation. Resume activity as tolerated when function has returned. Medications Resume your routine medications after your procedure. You may resume blood thinners per your regular schedule after the procedure. If you received sedation: If you received sedation for your procedure, you may feel sleepy or not yourself for several hours today. For the next 24 hours avoid activities that requires alertness or coordination. This includes: Driving or operating heavy machinery Using power tools Consuming alcohol Do not make important or complex decisions or sign legal documents in the next 24 hours. Other Instructions: If you feel severe pain at the injection site with swelling and redness, increased leg weakness, a fever of 101 or higher, headache (or worsening headache), changes in vision or urinary retention: Please call the office at , or have someone take you to the nearest emergency room. Tell the emergency room staff that you recently had a spine injection. A doctor must evaluate you for bleeding and injection complications. If you lose control over bowel, bladder, or legs: Go to the nearest emergency room. If you are diabetic, the steroids used in this procedure can increase your blood sugar. If your blood sugar is 250mg/dL or higher, contact your primary care physician, or the doctor who manages your diabetes, to discuss how to get it back to normal. documented in this encounter [facility] 05-25-2024 History of Present illness Narrative Images from the original note were not included. Flako Guaman MD Obstetrics and Gynecology Patient: Georgia Junior : 1965 (59 y.o.) Exam Date: 05/25/2024 Reason for Visit - Chief Complaint Patient presents with repeat pap 11/23/23- ASCUS 05/25/23- LSIL 11/17/22- Colpo 10/16/22- LSIL Visit Vitals OB Status Postmenopausal Smoking Status Never History of Present Illness, Associated Treatments and Results - OB History Para Term AB Living 3 0 0 0 0 0 SAB IAB Ectopic Multiple Live Births 0 0 0 0 0 # Outcome Date GA Lbr Ryne/2nd Weight Sex Type Anes PTL Lv 3 2 1 Constitutional: Negative. HENT: Negative. Eyes: Negative. Respiratory: Negative. Cardiovascular: Negative. Gastrointestinal: Negative. Endocrine: Negative. Genitourinary: Negative. Musculoskeletal: Negative. Skin: Negative. Allergic/Immunologic: Negative. Neurological: Negative. Hematological: Negative. Psychiatric/Behavioral: Negative. Allergies Allergen Reactions Lurasidone Other Other Reaction(s): Other: See Comments, Unknown Other reaction(s): involuntary muscle mvmt TD Phenazopyridine Unknown Other Reaction(s): Other: See Comments, Other: See Comments, Unknown Bad migraines causes headaches Cephalexin Hives, Rash and Other Other reaction(s): hives Hydrochlorothiazide Rash and Other Other reaction(s): rash Hydrocodone-Acetaminophen Nausea Only and GI intolerance Severe nausea Other reaction(s): Nausea Other reaction(s): vomiting Hydroxyzine Unknown and Rash Other reaction(s): rash Morphine Unknown, Hives, Rash and Other Penicillins Hives, Rash and Unknown Sulfa Antibiotics Hives, Rash and Unknown Current Outpatient Medications: albuterol HFA 90 mcg/act inhaler, Inhale 2 puffs every 4 (four) hours if needed for wheezing., Disp: , Rfl: alendronate (Fosamax) 70 MG tablet, 1 tablet, Disp: , Rfl: amitriptyline (Elavil) 75 MG tablet, TAKE 1 TABLET BY MOUTH EVERY DAY AT BEDTIME FOR 30 DAYS, Disp: , Rfl: atorvastatin (Lipitor) 40 MG tablet, 1 (one) time each day at the same time., Disp: , Rfl: baclofen (Lioresal) 10 MG tablet, Take 10 mg by mouth in the morning and 10 mg at noon and 10 mg in the evening., Disp: , Rfl: Brexpiprazole (Rexulti) 3 MG tablet, Take by mouth., Disp: , Rfl: carBAMazepine (TEGretol) 100 MG chewable tablet, every 12 (twelve) hours., Disp: , Rfl: cetirizine (ZyrTEC) 5 MG chewable tablet, Chew Daily., Disp: , Rfl: cholecalciferol (Vitamin D-3) 25 MCG (1000 UT) capsule, Take 1,000 Units by mouth in the morning., Disp: , Rfl: diphenhydrAMINE (BENADryl) 12.5 MG/5ML elixir, Take by mouth., Disp: , Rfl: dulaglutide (Trulicity) 4.5 MG/0.5ML solution pen-injector, Inject 4.5 mg under the skin 1 (one) time per week., Disp: , Rfl: DULoxetine (Cymbalta) [address] capsule, Take 60 mg by mouth in the morning and 60 mg in the evening., Disp: , Rfl: ipratropium (Atrovent) 0.06 % nasal spray, INSTILL TWO (2) SPRAYS IN EACH NOSTRIL TWICE DAILY, Disp: , Rfl: levETIRAcetam (Keppra) 250 MG tablet, every 12 (twelve) hours., Disp: , Rfl: methylphenidate (Ritalin) 10 MG tablet, 1 tablet on empty stomach, Disp: , Rfl: mometasone-formoterol (Dulera) 200-5 MCG/ACT inhaler, Inhale 2 puffs in the morning and 2 puffs before bedtime. Rinse mouth with water after use to reduce aftertaste and incidence of candidiasis. Do not swallow.., Disp: , Rfl: omeprazole (PriLOSEC) [address] capsule, TAKE 1 CAPSULE BY MOUTH TWICE A DAY 30 MINUTES BEFORE MORNING MEAL AND EVENING MEAL, Disp: , Rfl: pantoprazole (ProtoNix) 40 MG EC tablet, every 12 (twelve) hours., Disp: , Rfl: pilocarpine (Salagen) 7.5 MG tablet, every 8 (eight) hours., Disp: , Rfl: potassium chloride (Klor-Con) 20 MEQ packet, Take 20 mEq by mouth in the morning and 20 mEq before bedtime., Disp: , Rfl: pramipexole (Mirapex) 1 MG tablet, Take 1 mg by mouth in the morning and 1 mg before bedtime., Disp: , Rfl: pregabalin (Lyrica) 75 MG capsule, 1 capsule every 8 (eight) hours., Disp: , Rfl: promethazine (Phenergan) 25 MG tablet, every 6 (six) hours., Disp: , Rfl: sucralfate (Carafate) 1 g tablet, every 6 (six) hours., Disp: , Rfl: terazosin (Hytrin) 5 MG capsule, 1 (one) time each day at the same time., Disp: , Rfl: topiramate 50 MG tablet, Take 50 mg by mouth in the morning., Disp: , Rfl: Past Medical History: Diagnosis Date Anxiety Arthritis Asthma ([facility]) COPD (chronic obstructive pulmonary disease) ([facility]) Depression ([facility]) Fibromyalgia Foot fracture, left 09/2018 GERD (gastroesophageal reflux disease) History of degenerative disc disease Kidney disease Lower back pain Narcolepsy ([facility]) Neuropathy Osteoporosis ([facility]) Sleep apnea Stomach ulcer Syncope Tumor Past Surgical History: Procedure Laterality Date BREAST SURGERY 10/2019 breast reduction CERVICAL SPINE SURGERY 2002 C5-C6 CHOLECYSTECTOMY COLONOSCOPY 11/11/2021 with EGD DEBRIDEMENT 07/2019 ulcer debridement left leg EGD FOOT SURGERY 1998 HYSTEROSCOPY 08/29/2022 NECK SURGERY 2017 OTHER SURGICAL HISTORY 12/31/2022 TLH/BSO REPLACEMENT TOTAL KNEE ONCOLOGIC Left 05/28/23 SHOULDER SURGERY Right 2014 SHOULDER SURGERY Right 10/2019 reversed shoulder replacement surgery SHOULDER SURGERY Right 04/2020 replaced spacer in shoulder TONSILLECTOMY 1987 TUBAL LIGATION 1990 WRIST SURGERY Right 2015 plate with 8 screws Family History Problem Relation Name Age of Onset Ovarian cancer Mother Hypertension Mother Cancer Father Hypertension Sibling Social History Tobacco Use Smoking Status Never Smokeless Tobacco Never Physical Exam - General appearance, mentation, extraocular movements, facial strength and movement, hearing, upper and lower extremity strength and tone, sensation to gross testing, coordination, and gait are normal or at baseline unless noted below. Physical Exam Constitutional: Appearance: Normal appearance. Genitourinary: Right Labia: No rash. Left Labia: No rash. No vaginal discharge. No vaginal prolapse present. No vaginal atrophy present. HENT: Head: Normocephalic and atraumatic. Neurological: Mental Status: She is alert and oriented to person, place, and time. Psychiatric: Mood and Affect: Mood normal. Behavior: Behavior normal. Assessment/Plan ICD-10-CM 1. ASCUS of cervix with negative high risk HPV R87.610 2. Screening for malignant neoplasm of cervix Z12.4 3. Hx of abnormal cervical Pap smear Z87.42 Georgia was seen today for repeat pap. Diagnoses and all orders for this visit: ASCUS of cervix with negative high risk HPV - SENDOUT TEST MISCELLANEOUS [facility] Screening for malignant neoplasm of cervix - SENDOUT TEST MISCELLANEOUS [facility] Hx of abnormal cervical Pap smear - SENDOUT TEST MISCELLANEOUS [facility] Repap today Pt can found in MyChart Follow up 6 months documented in this encounter [facility] 05-25-2024 Miscellaneous Notes colp documented in this encounter [facility] 05-25-2024 Progress note Formatting of t his note might be different from the original. colp [facility] 05-10-2024 Note ED Patient Education Note Infectious Disease Cellulitis, Adult Cellulitis is a skin infection. The infected area is usually warm, red, swollen, and tender. This condition occurs most often in the arms and lower legs. The infection can travel to the muscles, blood, and underlying tissue and become serious. It is very important to get treated for this condition. What are the causes? Cellulitis is caused by bacteria. The bacteria enter through a break in the skin, such as a cut, burn, insect bite, open sore, or crack. What increases the risk? This condition is more likely to occur in people who: ? Have a weak body defense system (immune system). ? Have open wounds on the skin, such as cuts, caldwell, bites, and scrapes. Bacteria can enter the body through these open wounds. ? Are older than 60 years of age. ? Have diabetes. ? Have a type of long-lasting (chronic) liver disease (cirrhosis) or kidney disease. ? Are obese. ? Have a skin condition such as: ? Itchy rash (eczema). ? Slow movement of blood in the veins (venous stasis). ? Fluid buildup below the skin (edema). ? Have had radiation therapy. ? Use IV drugs. What are the signs or symptoms? Symptoms of this condition include: ? Redness, streaking, or spotting on the skin. ? Swollen area of the skin. ? Tenderness or pain when an area of the skin is touched. ? Warm skin. ? A fever. ? Chills. ? Blisters. How is this diagnosed? This condition is diagnosed based on a medical history and physical exam. You may also have tests, including: ? Blood tests. ? Imaging tests. How is this treated? Treatment for this condition may include: ? Medicines, such as antibiotic medicines or medicines to treat allergies (antihistamines). ? Supportive care, such as rest and application of cold or warm cloths (compresses) to the skin. ? Hospital care, if the condition is severe. The infection usually starts to get better within 1?2 days of treatment. Follow these instructions at home: Medicines ? Take coah-mqn-yvjkodo and prescription medicines only as told by your health care provider. ? If you were prescribed an antibiotic medicine, take it as told by your health care provider. Do not stop taking the antibiotic even if you start to feel better. General instructions ? Drink enough fluid to keep your urine pale yellow. ? Do not touch or rub the infected area. ? Raise (elevate) the infected area above the level of your heart while you are sitting or lying down. ? Apply warm or cold compresses to the affected area as told by your health care provider. ? Keep all follow-up visits as told by your health care provider. This is important. These visits let your health care provider make sure a more serious infection is not developing. Contact a health care provider if: ? You have a fever. ? Your symptoms do not begin to improve within 1?2 days of starting treatment. ? Your bone or joint underneath the infected area becomes painful after the skin has healed. ? Your infection returns in the same area or another area. ? You notice a swollen bump in the infected area. ? You develop new symptoms. ? You have a general ill feeling (malaise) with muscle aches and pains. Get help right away if: ? Your symptoms get worse. ? You feel very sleepy. ? You develop vomiting or diarrhea that persists. ? You notice red streaks coming from the infected area. ? Your red area gets larger or turns dark in color. These symptoms may represent a serious problem that is an emergency. Do not wait to see if the symptoms will go away. Get medical help right away. Call your local emergency services (911 in the [place] Do not drive yourself to the hospital. Summary ? Cellulitis is a skin infection. This condition occurs most often in the arms and lower legs. ? Treatment for this condition may include medicines, such as antibiotic medicines or antihistamines. ? Take enjh-myt-ftzfhby and prescription medicines only as told by your health care provider. If you were prescribed an antibiotic medicine, do not stop taking the antibiotic even if you start to feel better. ? Contact a health care provider if your symptoms do not begin to improve within 1?2 days of starting treatment or your symptoms get worse. ? Keep all follow-up visits as told by your health care provider. This is important. These visits let your health care provider make sure that a more serious infection is not developing. This information is not intended to replace advice given to you by your health care provider. Make sure you discuss any questions you have with your health care provider. Document Revised: 06/11/2022 Document Reviewed: 06/12/2022 [place] Patient Education ? 2022 [employer]. [facility] 05-03-2024 History of Present illness Narrative Visit type: Established Patient Reason for Visit: Follow-up Assessment and Plan 1. Occipital neuralgia of right side 2. Right temporomandibular joint disorder, unspecified Subjective HPI: Follow up for occipital neuralgia and TMJ- Pain in right occiput and refers to right ear Placed on carbamazepine - this helped initially, but then not so much Received injection in TMJ joint without relief Was on amitriptyline, then stopped and head pain worsened. At last visit, added doxepin 25mg after supper at last visit to help with head pain (already on duloxetine) Was asked to see her pain mgmt doc about occipital nerve block. Lidocaine rick to right occipital nerve PRN PT ordered for TMJ Today, patient states the doxepin is helping head pain; she is tolerating it well She hasn't needed to use the lidocaine rick XR cervical spine 04/06- IMPRESSION: 1. Cervical spondylosis C4-C5 and remote lower anterior cervical spine fusion that appears intact. 2. No acute bony abnormalities and no subluxation. No new neurological issues REVIEW OF SYSTEMS: Review of Systems Constitutional: Negative. HENT: Negative. Eyes: Negative. Respiratory: Negative. Cardiovascular: Negative. Gastrointestinal: Negative. Endocrine: Negative. Genitourinary: Negative. Musculoskeletal: Positive for back pain. Skin: Negative. Allergic/Immunologic: Negative. Neurological: Positive for headaches. Hematological: Negative. Psychiatric/Behavioral: Negative. Allergies Allergen Reactions Penicillins Hives and Rash Cephalexin Hives Dupixent [Dupilumab] Hives Hydrochlorothiazide Hives Lurasidone Rash Morphine Hives and Rash Norflex Tablets [Orphenadrine] Itching Pyridium [Phenazopyridine] Headache Sulfa Antibiotics Hives and Rash Vistaril [Hydroxyzine] Hives Hydrocodone-Acetaminophen Nausea And Vomiting and Headache Outpatient Medications Prior to Visit Medication Sig Dispense Refill albuterol 108 (90 Base) MCG/ACT inhaler Inhale 2 puffs every 4 hours as needed. alendronate (Fosamax) 70 MG tablet Take 70 mg by mouth every 7 days. atorvastatin (Lipitor) 40 MG tablet Take 40 mg by mouth Nightly. Brexpiprazole (Rexulti) 3 MG tablet Take by mouth daily. Calcium Carb-Cholecalciferol 600-20 MG-MCG tablet Take 2 tablets by mouth in the morning. carBAMazepine (TEGretol) 200 MG tablet 100 mg 2 times daily. cetirizine (ZyrTEC) 10 MG tablet Take 10 mg by mouth daily. cholecalciferol (Vitamin D-3) 125 MCG (5000 UT) tablet Take 5,000 Units by mouth in the morning. doxepin (SINEquan) 25 MG capsule Take 1 capsule (25 mg) by mouth with evening meal. 30 capsule 11 DULoxetine (Cymbalta) [address] capsule Take 60 mg by mouth 2 times daily. Do not crush or chew. etodolac (Lodine) 200 MG capsule Take 200 mg by mouth 2 times daily. ipratropium (Atrovent) 0.06 % nasal spray Administer 2 sprays into each nostril in the morning and 2 sprays in the evening. levETIRAcetam (Keppra) 250 MG tablet Take 250 mg by mouth 2 times daily. methylphenidate (Ritalin) 10 MG tablet Take 10 mg by mouth 2 times daily. mometasone-formoterol (Dulera) 200-5 MCG/ACT inhaler Inhale 2 puffs in the morning and 2 puffs in the evening. Rinse mouth with water after use to reduce aftertaste and incidence of candidiasis. Do not swallow.. pilocarpine (Salagen) 7.5 MG tablet Take 7.5 mg by mouth 3 times daily. potassium chloride CR (Klor-Con M20) 20 MEQ ER tablet Take 20 mEq by mouth daily. Do not crush or chew. pramipexole (Mirapex) 1 MG tablet Take 1 mg by mouth 2 times daily. pregabalin (Lyrica) 150 MG capsule Take 150 mg by mouth 3 times daily. terazosin (Hytrin) 5 MG capsule Take 5 mg by mouth Nightly. topiramate (Topamax) 100 MG tablet Take 100 mg by mouth Nightly. Trulicity 4.5 MG/0.5ML solution pen-injector Inject 4.5 mg under the skin 1 (one) time per week. No facility-administered medications prior to visit. Past Medical History: Diagnosis Date Anxiety DDD (degenerative disc disease), lumbar Depression 1993 Fibromyalgia Fibromyalgia, primary 01/30 Insomnia 2014 Movement disorder 08/05 Restless leg syndrome 2003 Tremor 2020 Trigeminal neuralgia 01/04 Weakness of limb 2019 Social History Tobacco Use Smoking status: Former Average packs/day: 1 pack/day for 35.8 years (35.8 ttl pk-yrs) Types: Cigarettes Start date: 1987 Smokeless tobacco: Never Substance Use Topics Alcohol use: Not Currently Alcohol/week: 1.0 standard drink of alcohol Comment: Rarely History reviewed. No pertinent surgical history. Family History Problem Relation Name Age of Onset Seizures Mother Deanna Pickard Parkinsonism Paternal Grandfather Vic Pickard Depression Brother Ronen Pickard Fibromyalgia Sister Meche Dale Migraines Sister Meche Dale Objective Vitals: BP 95/62 (BP Location: Right arm, Patient Position: Sitting, BP Cuff Size: Adult) Pulse 72 Ht 5' 1 (1.549 m) Wt 176 lb (79.8 kg) BMI 33.25 kg/m General Appearance: Patient is in no apparent distress. Head is normocephalic, atraumatic Cardiovascular: Regular rate and rhythm. No heart murmurs. No carotid bruit Neurologic: Mentation: Alert and oriented x 3 [address] person, place and time. Speech and Language: Speech and language normal Concentration and Attention: Concentration normal Memory: Memory normal Fund of Knowledge: Fund of knowledge normal Cranial Nerves: II, III, IV, V, , VII, VIII, IX, X, XI, XII examined and were intact. Motor: Strength: Strength 5 out of 5 with normal tone; left hand in splint from 5th metatarsal fracture Alternating Movements: Normal Cogwheel Rigidity: None Tone: Tone is normal Tremor / Involuntary Movements: None Deep Tendon Reflexes: 1 out of 4 symmetrical in all four limbs. Sensory: Normal sensation upper and lower extremities Coordination: Normal coordination upper and lower extremities Gait and Station: Station is normal. Gait is normal Data Reviewed and Summarized DIAGNOSTIC TESTING CBC: No results found for: WBC , RBC , HGB , HCT , MCV , MCH , MCHC , RDW , PLT , MPV CMP: No results found for: NA , K , CL , CO2 , BUN , CREATININE , AGRATIO , LABGLOM , GLUCOSE , GLU , PROT , CALCIUM , BILITOT , ALKPHOS , AST , ALT BMP: No results found for: NA , K , CL , CO2 , BUN , CREATININE , CALCIUM , LABGLOM , GLUCOSE , GLU PT/INR: No results found for: PROTIME , INR PTT: No results found for: APTT , PTT [APTT} FLP: No results found for: CHLPL , TRIG , HDL , LDLCALC , LDLDIRECT TSH: No results found for: TSH VITAMIN B12: No results found for: [id number] No results found for: PHENYTOIN , PHENOBARB , VALPROATE , CBMZ No components found for: TOPIRA @RESULTINGLABINFO@ No results found for: LEVETIRACETA , FERRITIN , CRP , NATE , ANCA No results found for: DARVIN , IMMUNOGLOBUL , OLIGOBANDS No results found for: [id number] , HEPCAB No results found for: CRP , ANATITER , ANCA FERRITIN: No results found for: FERRITIN ---- XR cervical spine complete 4 to 5 views Narrative: Patient Name: GEORGIA JUNIOR : 1965 Exam Date/Time: 03/18/2024 15:51 Procedure: XR CERVICAL SPINE COMPLETE 4-5 VIEWS Ordering Provider: RAYA JAMES Reason For Exam: NECK PAIN CERVICAL SPINE SERIES WITH OBLIQUES CLINICAL INDICATION: Neck pain AP, bilateral oblique, open mouth odontoid, and lateral views of the cervical spine were obtained. COMPARISON: None. FINDINGS: No acute fracture or subluxation. No prevertebral soft tissue swelling. Anterior cervical spine fusion plate noted lower cervical spine. Hardware appears intact. At C4-C5 there is uncovertebral joint and facet hypertrophy bilaterally. This causes mild bony encroachment on the neural foramina at C4-C5 bilaterally. Right shoulder joint replacement noted. Impression: 1. Cervical spondylosis C4-C5 and remote lower anterior cervical spine fusion that appears intact. 2. No acute bony abnormalities and no subluxation. Report Dictated on Electronically Signed By: Lelo Coleman MD Electronically Signed Date/Time: 03/23/2024 3:43 PM EDT @[email or web address]@ IMPRESSION and PLAN: Problem List Items Addressed This Visit None Visit Diagnoses Occipital neuralgia of right side - Primary Right temporomandibular joint disorder, unspecified This is better with doxepin 25mg added to regimen. Tolerating well. Continue this dose. Can use lidocaine rick PRN She has not started PT yet; will do so. Has upcoming appointment with dentistry and will discuss bite guard. RTO 6 mos, sooner if issues GAVIN Rolle CNP I spent 25 minutes caring for this patient today, reviewing labs, records, seeing the patient, documenting in the record and arranging for studies. Electronically signed by GAVIN Rolle CNP on @TDNR@ at @NOWNR@ documented in this encounter [facility] 05-03-2024 Instructions GAVIN Rolle CNP - 05/03/2024 2:00 PM EDT Schedule your physical therapy: [facility] Address: [address] [place] [address] [place] [address] 2 times per week for 8 weeks 1. Occipital neuralgia right 2. Right TMJ arthralgia Referral for dental for bite guard for TMJ Referral for pain management for occipital neuralgia for potential nerve block documented in this encounter [facility] 03-25-2024 Note ED Patient Education Note Pulmonary Medicine Nonspecific Chest Pain, Adult Chest pain is an uncomfortable, tight, or painful feeling in the chest. The pain can feel like a crushing, aching, or squeezing pressure. A person can feel a burning or tingling sensation. Chest pain can also be felt in your back, neck, jaw, shoulder, or arm. This pain can be worse when you move, sneeze, or take a deep breath. Chest pain can be caused by a condition that is life-threatening. This must be treated right away. It can also be caused by something that is not life-threatening. If you have chest pain, it can be hard to know the difference, so it is important to get help right away to make sure that you do not have a serious condition. Some life-threatening causes of chest pain include: ? Heart attack. ? A tear in the body's main blood vessel (aortic dissection). ? Inflammation around your heart (pericarditis). ? A problem in the lungs, such as a blood clot (pulmonary embolism) or a collapsed lung (pneumothorax). Some non life-threatening causes of chest pain include: ? Heartburn. ? Anxiety or stress. ? Damage to the bones, muscles, and cartilage that make up your chest wall. ? Pneumonia or bronchitis. ? Shingles infection (varicella-zoster virus). Your chest pain may come and go. It may also be constant. Your health care provider will do tests and other studies to find the cause of your pain. Treatment will depend on the cause of your chest pain. Follow these instructions at home: Medicines ? Take [id number] and prescription medicines only as told by your health care provider. ? If you were prescribed an antibiotic medicine, take it as told by your health care provider. Do not stop taking the antibiotic even if you start to feel better. Activity ? Avoid any activities that cause chest pain. ? Do not lift anything that is heavier than 10 lb (4.5 kg), or the limit that you are told, until your health care provider says that it is safe. ? Rest as directed by your health care provider. ? Return to your normal activities only as told by your health care provider. Ask your health care provider what activities are safe for you. Lifestyle ? Do not use any products that contain nicotine or tobacco, such as cigarettes, e-cigarettes, and chewing tobacco. If you need help quitting, ask your health care provider. ? Do not drink alcohol. ? Make healthy lifestyle changes as recommended. These may include: ? Getting regular exercise. Ask your health care provider to suggest some exercises that are safe for you. ? Eating a heart-healthy diet. This includes plenty of fresh fruits and vegetables, whole grains, low-fat (lean) protein, and low-fat dairy products. A dietitian can help you find healthy eating options. ? Maintaining a healthy weight. ? Managing any other health conditions you may have, such as high blood pressure (hypertension) or diabetes. ? Reducing stress, such as with yoga or relaxation techniques. General instructions ? Pay attention to any changes in your symptoms. ? It is up to you to get the results of any tests that were done. Ask your health care provider, or the department that is doing the tests, when your results will be ready. ? Keep all follow-up visits as told by your health care provider. This is important. ? You may be asked to go for further testing if your chest pain does not go away. Contact a health care provider if: ? Your chest pain does not go away. ? You feel depressed. ? You have a fever. ? You notice changes in your symptoms or develop new symptoms. Get help right away if: ? Your chest pain gets worse. ? You have a cough that gets worse, or you cough up blood. ? You have severe pain in your abdomen. ? You faint. ? You have sudden, unexplained chest discomfort. ? You have sudden, unexplained discomfort in your arms, back, neck, or jaw. ? You have shortness of breath at any time. ? You suddenly start to sweat, or your skin gets clammy. ? You feel nausea or you vomit. ? You suddenly feel lightheaded or dizzy. ? You have severe weakness, or unexplained weakness or fatigue. ? Your heart begins to beat quickly, or it feels like it is skipping beats. These symptoms may represent a serious problem that is an emergency. Do not wait to see if the symptoms will go away. Get medical help right away. Call your local emergency services (911 in the [place] Do not drive yourself to the hospital. Summary ? Chest pain can be caused by a condition that is serious and requires urgent treatment. It may also be caused by something that is not life-threatening. ? Your health care provider may do lab tests and other studies to find the cause of your pain. ? Follow your health care provider's instructions on taking medicines, making lifestyle changes, and getting emergency treatment if symptoms become worse. ? Keep all follo (more content not included)... [facility] 03-18-2024 Note Addended by: RONEN RAYA on: 03/18/2024 05:42 PM Modules accepted: Orders [facility] 03-18-2024 Note Addended by: RONEN RAYA on: 03/18/2024 05:42 PM Modules accepted: Orders [facility] 03-18-2024 Note Addended by: RONEN RAYA on: 03/18/2024 05:42 PM Modules accepted: Orders [facility] 03-18-2024 Note Addended by: RONEN RAYA on: 03/18/2024 05:42 PM Modules accepted: Orders [facility] 03-18-2024 Miscellaneous Notes Addended by: RONEN RAYA on: 03/18/2024 05:42 PM Modules accepted: Orders I put dispense 50 gm on the prescription, so not sure what the issue si Forwarding to provider for review and advice. Name of caller: Junaid Contact phone number: [phone] Relationship to Patient: [facility] Provider: Ronen Raya MD Practice: [facility] Chief Complaint/Reason for Call: Prescription for lidocaine (Xylocaine) 5 % ointment Needs specific Gram amounts for insurance processing. Please advise. Best time of day caller can be reached: Any Patient advised that office/PCP has 24-48 business hours to return their call: N/A documented in this encounter [facility] 03-18-2024 Telephone encounter Note I put dispense 50 gm on the prescription, so not sure what the issue si [facility] 03-18-2024 Telephone encounter Note Forwarding to provider for review and advice. [facility] 03-18-2024 Telephone encounter Note Name of caller: Junaid Contact phone number: [phone] Relationship to Patient: [facility] Provider: Ronen Raya MD Practice: [facility] Chief Complaint/Reason for Call: Prescription for lidocaine (Xylocaine) 5 % ointment Needs specific Gram amounts for insurance processing. Please advise. Best time of day caller can be reached: Any Patient advised that office/PCP has 24-48 business hours to return their call: N/A [facility] 03-18-2024 History of Present illness Narrative Images from the original note were not included. [facility] [address] [place] [address] [facility] [address] Dept: [phone] Dept Loc: [phone] Ronen Raya MD Thank you for your kind request for a neurological consultation on this patient. CHIEF COMPLAINT: Chief Complaint Patient presents with New Patient Headache HISTORY OF PRESENT ILLNESS: The patient is a 59 y.o. person who presents with pain that starts in her occiput on the right and refers to her right ear. It does not happen every day. She reports that it was occurring daily for four months. She reports that she was placed on carbamazepine. She reports that it has been once a week. She reports that she received an injection in the TMJ joint area and that did not work. The patient cannot find a trigger. She reports that heat sometimes helps. She reports that she had prior cervical spine surgery. She denies prior history of clenching or grinding of her teeth. She was on amitriptyline and stopped that med about three weeks ago. She is not sure if that is when the occipital neuralgia pain got worse. Past Medical History: has a past medical history of DDD (degenerative disc disease), lumbar and Fibromyalgia. Outside records: Rina Vallejo MD - 07/21/2023 3:30 PM EST Subjective Georgia Junior is a right handed 58 y.o. year old female. Visit type: follow up visit GEORGIA JUNIOR is here for follow-up. Here for follow up of tremors, felt to be medication induced, in addition has RLS managed by PCP as well as Narcolepsy. Also had tardive dyskinesias however this has fully resolved. At the last visit we started keppra for muscle jerks - presumed to be myoclonic. No side effects from same. She continues to have them - had an episode of muscle jerks that caused her to loose her ice cream. The jerks are quite intermittent, happens maybe once every few weeks. The tremors are more continuous. Has some tremors of both hands with action, notices it mostly when using her phone - dropped it frequently. Narcolepsy is doing better. Is on ritalin for same. Her mouth is dry, but she does not have the mouth movements much anymore, has cut down the promethazine. Walking is good, had a TKR on L leg in May, has done very well. NO recent falls. Mood is good. Memory is so so. At prior visit Latuda caused involuntary movements of the tongue and jaw. Was also on Thorazine in past, as well as promethazine. Remains on Mirapex for her RLS, states that symptoms are not well controlled, but thinks it is mainly due to her tail bone issues. Has pain right in the middle of the coxxyx and buttocks, and goes down the leg. Has never had an EMG done. Patient Active Problem List Diagnosis Abnormality of gait and mobility Active peptic ulcer Anxiety Arthritis of knee Arthritis of right shoulder region Acute lateral meniscus tear of left knee Cervical radiculopathy at C5 Chronic back pain Fibromyalgia Neck pain, chronic Closed fracture of upper end of left fibula Chronic rupture of ACL of left knee Compression fracture of lumbar vertebra (CMS/HCC) Cough variant asthma Contusion of right knee Degenerative arthritis of knee, bilateral Chondromalacia of left patella Diverticulitis Dizziness and giddiness Disorder of sacrum Depression Degenerative scoliosis in adult patient Genu valgum High cholesterol Gastroesophageal reflux disease Syncope Medication-induced movement disorder Loss of consciousness (CMS/HCC) History of trigeminal neuralgia Locking of left knee Myoclonus Tremor Myofascial pain syndrome Narcolepsy Muscle weakness Patellofemoral pain syndrome of left knee Osteopenia Numbness and tingling Presence of right artificial shoulder joint Peripheral polyneuropathy Rotator cuff tear arthropathy of right shoulder Rotator cuff tendonitis, right Skin complaints Restless legs syndrome Muscle spasms of both lower extremities Spondylosis of cervical region without myelopathy or radiculopathy Degenerative disc disease, cervical Tardive dyskinesia Trochanteric bursitis of both hips Past Medical History: Diagnosis Date Personal history of other diseases of the circulatory system History of hypertension Past Surgical History: Procedure Laterality Date OTHER SURGICAL HISTORY 01/17/2015 Anterior Spinal Diskectomy, Osteophytectomy Cerv Interspace OTHER SURGICAL HISTORY 11/21/2018 Shoulder replacement ROTATOR CUFF REPAIR 01/17/2015 Rotator Cuff Repair Social History Socioeconomic History Marital status: Legally Spouse name: Not on file Number of children: Not on file Years of education: Not on file Highest education level: Not on file Occupational History Not on file Tobacco Use Smoking status: Not on file Smokeless tobacco: Not on file Substance and Sexual Activity Alcohol use: Not on file Drug use: Not on file Sexual activity: Not on file Other Topics Concern Not on file Social History Narrative Not on file Social Determinants of Health Financial Resource Strain: Not on file Food Insecurity: Not on file Transportation Needs: Not on file Physical Activity: Not on file Stress: Not on file Social Connections: Not on file Intimate Partner Violence: Not on file Housing Stability: Not on file Family History Problem Relation Name Age of Onset Brain cancer Mother Seizures Mother Brain cancer Father Brain cancer Brother Seizures Brother Review of Systems All other system have been reviewed and are negative for complaint. Objective Neurological Exam Cranial nerves: face symmetric, No orobuccolingual movements. Motor: lifts all extremeties symmetrically and antigravity. Very fine low amplitude, high frequency tremor w posture and action. Handwriting is neat, mildly tremulous Archimedes spirals. No ataxia on finger nose finger. Gait - narrow based and normal arm swing. MRI LS spine 2022: IMPRESSION: 1. Mild degenerative arthritic changes are seen in the lumbar spine. Facet arthropathy seen at multiple levels. Various degrees of spinal stenosis and narrowing of the neural foramina are seen as described above. 2. Associated disc bulging at multiple levels. No roger disc herniation is seen. 3. Grade 1 spondylolisthesis at L4-L5 and L5-S1. There is some mild levoscoliosi Assessment/Plan Georgia Junior is a 58 y.o. year old female here for follow up of multiple complaints including tremor, muscle jerks, as well as radicular pain. She is on a multitude of FIRE REGULATOR medications, and I would be be reluctant to add any further medications to her regimen. I did add keppra 250 mg bid at the last visit, but I would be hesitant to adjust any further. (Keppra was added for muscle jerks - presumed to be myoclonus). Main issue now is what sounds like radicular pain, recently had an MRI LS spine and follows up w pain medications. I have ordered an EMG of the lower extremities to evaluate. Plan: 1, continue keppra 250 mg bid 2. EMG/NCS of the lower limbs 3. RTC in 9-12 months. Plan of Treatment - documented as of this encounter Plan of Treatment - Upcoming Encounters Upcoming Encounters Date Type Department Care Team (Latest Contact Info) Description 04/20/2024 11:00 AM EDT Office Visit [facility] [address] [place] [id number] Rina Vallejo MD [address] [facility], [address], [address] [place] [address] 04/28/2024 11:00 AM EDT Office Visit [facility] [address] [place] [address] Eugene Osuna MD [address], [address] [place] [address] Miscellaneous Results - documented in this encounter EMG & nerve conduction (08/28/2023 12:44 PM EST) Miscellaneous Results - EMG & nerve conduction (08/28/2023 12:44 PM EST) 08/28/2023 12:44 PM EST 08/28/2023 12:44 PM EST Miscellaneous Results - EMG & nerve conduction (08/28/2023 12:44 PM EST) Impressions NEUROLOGY - 08/28/2023 12:44 PM EST Impression: This is an abnormal EMG/NCS of bilateral lower extremities. There is electrophysiological evidence consistent with chronic moderate bilateral L5 and left S1 radiculopathy with no active denervation. Robb Castro M.D. Past Surgical History: has no past surgical history on file. Medications: Current Outpatient Medications: albuterol 108 (90 Base) MCG/ACT inhaler, Inhale 2 puffs every 4 hours as needed., Disp: , Rfl: alendronate (Fosamax) 70 MG tablet, Take 70 mg by mouth every 7 days., Disp: , Rfl: atorvastatin (Lipitor) 40 MG tablet, Take 40 mg by mouth Nightly., Disp: , Rfl: Brexpiprazole (Rexulti) 3 MG tablet, Take by mouth daily., Disp: , Rfl: Calcium Carb-Cholecalciferol 600-20 MG-MCG tablet, Take 2 tablets by mouth in the morning., Disp: , Rfl: carBAMazepine (TEGretol) 200 MG tablet, 100 mg 2 times daily., Disp: , Rfl: cetirizine (ZyrTEC) 10 MG tablet, Take 10 mg by mouth daily., Disp: , Rfl: cholecalciferol (Vitamin D-3) 125 MCG (5000 UT) tablet, Take 5,000 Units by mouth in the morning., Disp: , Rfl: DULoxetine (Cymbalta) [address] capsule, Take 60 mg by mouth 2 times daily. Do not crush or chew., Disp: , Rfl: etodolac (Lodine) 200 MG capsule, Take 200 mg by mouth 2 times daily., Disp: , Rfl: ipratropium (Atrovent) 0.06 % nasal spray, Administer 2 sprays into each nostril in the morning and 2 sprays in the evening., Disp: , Rfl: levETIRAcetam (Keppra) 250 MG tablet, Take 250 mg by mouth 2 times daily., Disp: , Rfl: methylphenidate (Ritalin) 10 MG tablet, Take 10 mg by mouth 2 times daily., Disp: , Rfl: mometasone-formoterol (Dulera) 200-5 MCG/ACT inhaler, Inhale 2 puffs in the morning and 2 puffs in the evening. Rinse mouth with water after use to reduce aftertaste and incidence of candidiasis. Do not swallow.., Disp: , Rfl: pilocarpine (Salagen) 7.5 MG tablet, Take 7.5 mg by mouth 3 times daily., Disp: , Rfl: potassium chloride CR (Klor-Con M20) 20 MEQ ER tablet, Take 20 mEq by mouth daily. Do not crush or chew., Disp: , Rfl: pramipexole (Mirapex) 1 MG tablet, Take 1 mg by mouth 2 times daily., Disp: , Rfl: pregabalin (Lyrica) 150 MG capsule, Take 150 mg by mouth 3 times daily., Disp: , Rfl: terazosin (Hytrin) 5 MG capsule, Take 5 mg by mouth Nightly., Disp: , Rfl: topiramate (Topamax) 100 MG tablet, Take 100 mg by mouth Nightly., Disp: , Rfl: Trulicity 4.5 MG/0.5ML solution pen-injector, Inject 4.5 mg under the skin 1 (one) time per week., Disp: , Rfl: She reports that she is no longer taking amitriptyline but has not told [facility] to stop filling it. Filled Written ID Drug QTY Days Prescriber RX # Dispenser Refill Daily Dose* Pymt Type SECURITY BUSINESS ANALYST 03/14/2024 03/14/2024 1 Oxycodone-Acetaminophen 5-325 20.00 5 Ro [address] [id number] [place] ([id number]) 0 30.00 MME [place] 03/11/2024 03/11/2024 5 Oxycodone Hcl (Ir) 5 Mg Tablet 25.00 7 Th Kra [id number] Wal ([id number]) 0 26.79 MME Medicaid [place] 03/11/2024 03/11/2024 4 Oxycodone Hcl (Ir) 5 Mg Tablet 2.00 1 Th Kra [id number] [facility] ([id number]) 0 15.00 MME Medicaid [place] 03/08/2024 03/08/2024 5 Methylphenidate 10 Mg Tablet 90.[address] [id number] [facility] ([id number]) 0 Medicaid [place] 03/01/2024 02/27/2024 6 Pregabalin 150 Mg Capsule 90.00 30 Sa Kalen [id number] Ex[facility] ([id number]) 0 3.01 LME Medicare [place] 02/09/2024 02/09/2024 4 Methylphenidate 10 Mg Tablet 90.[address] [id number] Dis ([id number]) 0 Comm Ins [place] 02/05/2024 02/05/2024 3 Oxycodone Hcl (Ir) 5 Mg Tablet 25.00 7 Ja Damion [id number] The ([id number]) 0 26.79 MME Comm Ins [place] 01/22/2024 12/01/2023 1 Pregabalin 150 Mg Capsule 90.00 30 Me Dinesh [id number] Exa ([id number]) 1 3.01 LME Medicare [place] Allergies: Penicillins, Cephalexin, Dupixent [dupilumab], Hydrochlorothiazide, Lurasidone, Morphine, Norflex tablets [orphenadrine], Pyridium [phenazopyridine], Sulfa antibiotics, Vistaril [hydroxyzine], and Hydrocodone-acetaminophen Social History: Social History Socioeconomic History Marital status: Legally Spouse name: Not on file Number of children: Not on file Years of education: Not on file Highest education level: Not on file Occupational History Not on file Tobacco Use Smoking status: Former Average packs/day: 1 pack/day for 35.8 years (35.8 ttl pk-yrs) Types: Cigarettes Start date: 1987 Smokeless tobacco: Never Vaping Use Vaping status: Never Used Substance and Sexual Activity Alcohol use: Yes Alcohol/week: 1.0 standard drink of alcohol Types: 1 Shots of liquor per week Comment: twice per year Drug use: Never Sexual activity: Not on file Other Topics Concern Not on file Social History Narrative Not on file Social Determinants of Health Financial Resource Strain: Not on file Food Insecurity: No Food Insecurity (02/04/2024) Received from [email or web address] Hunger Vital Sign Worried About Running Out of Food in the Last Year: Never true Ran Out of Food in the Last Year: Never true Transportation Needs: No Transportation Needs (02/04/2024) Received from [email or web address] PRAPARE - Transportation Lack of Transportation (Medical): No Lack of Transportation (Non-Medical): No Physical Activity: Not on file Stress: Not on file Social Connections: Not on file Intimate Partner Violence: Not on file Housing Stability: Not on file Family History: No family history on file. REVIEW OF SYSTEMS: Review of Systems Constitutional: Negative for appetite change, chills, diaphoresis, fever and unexpected weight change. HENT: Negative for dental problem and mouth sores. Eyes: Negative for discharge and itching. Respiratory: Negative for chest tightness. Cardiovascular: Negative for chest pain and leg swelling. Gastrointestinal: Negative for rectal pain and vomiting. Endocrine: Negative for polydipsia, polyphagia and polyuria. Genitourinary: Negative for decreased urine volume, flank pain and genital sores. Musculoskeletal: Positive for arthralgias and back pain. Negative for neck pain. Skin: Negative for color change. Allergic/Immunologic: Negative for food allergies and immunocompromised state. Neurological: Positive for seizures and headaches. Hematological: Negative for adenopathy. Does not bruise/bleed easily. Psychiatric/Behavioral: Positive for sleep disturbance. Negative for agitation, behavioral problems, decreased concentration and suicidal ideas. PHYSICAL EXAM: Vitals: BP 96/67 (BP Location: Right arm, Patient Position: Sitting, BP Cuff Size: Adult) Pulse 69 Ht 5' 1 (1.549 m) Wt 184 lb 9.6 oz (83.7 kg) BMI 34.88 kg/m General Appearance: Patient is in no apparent distress. Head is normocephalic, atraumatic. On visual inspection and on palpation of the TMJ her right TMJ drops out of the socket. She has tenderness to palpation of the right occipital nerve. TM's are normal bilaterally Cardiovascular: Regular rate and rhythm. No heart murmurs. No carotid bruit Neurologic: Mentation: Alert and oriented x 3 [address], place and time. Speech and Language: Speech and language normal Concentration and Attention: Concentration normal Memory: Memory grossly normal. She presented late so we did not have time for an indepth exam of this today. Fund of Knowledge: Fund of knowledge normal Cranial Nerves: II, III, IV, V, , VII, VIII, IX, X, XI, XII tested and were intact including fundoscopic exam (optic discs) and visual field to confrontation. Facial sensation is normal bilaterally to pinprick Motor: Strength:Strength 5 out of 5 with normal tone. Her left hand and wrist are heavily bandaged. Alternating Movements: Normal Cogwheel Rigidity: None Tone: Tone is normal Tremor / Involuntary Movements: None Deep Tendon Reflexes: 1 out of 4 symmetrical in all four limbs. Coordination: Normal coordination upper and lower extremities Gait and Station: Station is normal. Gait is normal DATA CBC: No results found for: WBC , RBC , HGB , HCT , MCV , MCH , MCHC , RDW , PLT , MPV CMP: No results found for: NA , K , CL , CO2 , BUN , CREATININE , AGRATIO , LABGLOM , GLUCOSE , GLU , PROT , CALCIUM , BILITOT , ALKPHOS , AST , ALT BMP: No results found for: NA , K , CL , CO2 , BUN , CREATININE , CALCIUM , LABGLOM , GLUCOSE , GLU PT/INR: No results found for: PROTIME , INR PTT: No results found for: APTT , PTT [APTT} FLP: No results found for: CHLPL , TRIG , HDL , LDLCALC , LDLDIRECT TSH: No results found for: TSH VITAMIN B12: No results found for: [id number] FERRITIN: No results found for: FERRITIN ---- No results found for: PHENYTOIN , PHENOBARB , VALPROATE , CBMZ No components found for: TOPIRA No results found for: OXCARBAZE , OXCARB @LASTAPPOINTMENTTHISPROV@ No image results found. @RESULTINGLABINFO@ No results found for: LEVETIRACETA , FERRITIN , CRP , NATE , ANCA No results found for: DARVIN , IMMUNOGLOBUL , OLIGOBANDS No results found for: QKH50PE , HEPCAB No results found for: CRP , ANATITER , ANCA Eugene Moctezuma MD - 10/28/2022 Patient Name: GEORGIA JUNIOR STUDY: NR MRI BRAIN W/WO CONTRAST; 01/19/2017 4:20 pm INDICATION: Signs/Symptoms: LOC. COMPARISON: None. ACCESSION NUMBER(S): [id number] ORDERING CLINICIAN: SALEEM KRUSE TECHNIQUE: Axial T2, FLAIR, DWI and sagittal and coronal T1 weighted images of brain were acquired. Post contrast T1 weighted images were acquired after administration of 20 cc of gadolinium based intravenous contrast. FINDINGS: The signal intensity within the brain is normal. There is no diffusion evidence of acute or subacute ischemic change. There is no evidence of abnormal parenchymal or leptomeningeal enhancement following gadolinium. The ventricular system is within normal limits. IMPRESSION: Unremarkable examination Exam End: 01/19/17 16:20 Alan Avelar MD - 04/09/2023 HISTORY: A 58-year-old female with the history of the low back pain with neurogenic claudication. Lumbar spinal stenosis and spondylosis. TECHNIQUE: Multiplanar and multisequence MRI examination of the lumbar spine is performed. COMPARISON: Comparison is made with MRI examination of the lumbar spine of 06/17/2021. FINDINGS: Vertebral heights are normal. There is a grade 1 spondylolisthesis at L4-L5 and L5-S1. There is some mild levoscoliosis. Degenerative arthritic changes are seen in the lumbar spine. Both sacroiliac joints are intact. No significant paravertebral soft tissue abnormality seen. At L1-L2, there is no evidence of disc herniation, spinal stenosis or narrowing of the neural foramina. At L2-L3, there is a minimal disc bulge. Facet arthropathy seen bilaterally with mild degree of spinal stenosis but neural foramina are patent. At L3-L4, there is a minimal disc bulging. Facet arthropathy seen bilaterally with mild degree of spinal stenosis but neural foramina are patent. At L4-L5, there is a disc bulging. Facet arthropathy seen bilaterally with moderate degree of spinal stenosis. Neural foramina are narrowed bilaterally. At L5-S1, there is a disc bulging. Facet arthropathy seen bilaterally. There is a mild degree of spinal stenosis. Neural foramina are narrowed bilaterally. Conus is seen at the level of T12-L1. No intrathecal signal abnormality is identified. IMPRESSION: 1. Mild degenerative arthritic changes are seen in the lumbar spine. Facet arthropathy seen at multiple levels. Various degrees of spinal stenosis and narrowing of the neural foramina are seen as described above. 2. Associated disc bulging at multiple levels. No roger disc herniation is seen. 3. Grade 1 spondylolisthesis at L4-L5 and L5-S1. There is some mild levoscoliosis. Finalized by Alan Avelar MD on 04/09/2023 9:28 PM Exam End: 04/09/23 10:28 [facility] Main [place] [address] [place] [address] XRay Report Signed Patient: Georgia Junior MR#: [id number] 278 : 1965 Acct:[id number] Age/Sex: 54 / F ADM Date: 10/28/19 Loc: Room: Type: [facility] Attending Dr: Servando Bates MD Ordering Provider: Dimitri Ibarra MD Date of Service: 10/28/19 XR/XR cerv spine AP/LAT/FLX/EXT: M54.2 Copies to: MD Servando Markham MD CERVICAL SPINE WITH FLEXION AND EXTENSION VIEWS -4 views: CLINICAL HISTORY: Left arm numbness and tingling. Previous fusion. COMPARISON: 03/03/2017 AP as well as lateral views in neutral, flexion and extension were obtained. There is osteopenia. Patient is status post anterior fusion with plate and screws at C6/7. There is also previous interbody fusion of the C5 and C6 vertebra. There is no developing fracture or displacement. There is continued slight retrolisthesis of C4 on C5 with extension. The disc spaces are maintained. There is minor endplate spurring and some facet disease. No prevertebral soft tissue swelling is identified. XR/XR cerv spine AP/LAT/FLX/EXT IMPRESSION: OSTEOPENIA, POSTOPERATIVE AND DEGENERATIVE CHANGES. Impression dictated by: Sachi Darby M.D.10/28/2019 1:11 PM Dictation Location: [facility] Transcribed By: [facility] 10/28/19 7797 ASSESSMENT AND PLAN: Diagnosis Plan 1. Occipital neuralgia of right side 2. Right temporomandibular joint disorder, unspecified It is necessary for her to have x-rays of the neck for the right occipital neuralgia and likely upper neck referred pain. She is on many medications. She was on amitriptyline and carbamazepine without relief but is noticing that the head pain is worse since stopping the amitriptyline. She is already on duloxetine. Will try doxepin at night to help prevent the pains. She is to ask her pain management doctor about getting an occipital nerve block. Lidocaine ointment to the right occipital nerve prn. Doxepin 25 mg after supper. PT for her right TMJ disorder. Unfortunately, we got off to a late start today, so if there was hope that I would address her other neurological and sleep medicine issues I did not have time for that. I spent 60 minutes caring for this patient today, reviewing labs and records, seeing the patient, documenting in the record and arranging for studies. documented in this encounter [facility] 03-18-2024 Instructions Ronen Raya MD - 03/18/2024 1:30 PM EDT The patient is to call and make an appt: [facility] Address: [facility] [place] [address] 2 times per week for 8 weeks 1. Occipital neuralgia right 2. Right TMJ arthralgia She has to see Dr. Rivas for right occipital nerve block Address: [address] [place] [place] [address] documented in this encounter [facility] 02-05-2024 History of Present illness Narrative Hospitalist Progress Note PCP: Young Jones MD Date of Admission: 02/04/2024 Chief Complaint: No chief complaint on file. Subjective: Patient denies fevers, chills, sweats, CP, SOB, diarrhea or burning micturition. 12 point ROS negative other than mentioned above Medications: Reviewed Infusion Medications sodium chloride Scheduled Medications ipratropium 2 spray Nasal BID budesonide-formoterol 2 puff Inhalation BID RT sodium chloride flush 5-40 mL IntraVENous 2 times per day famotidine 20 mg Oral BID Or famotidine (PEPCID) injection 20 mg IntraVENous BID enoxaparin 40 mg SubCUTAneous Daily PRN Meds: oxyCODONE, albuterol sulfate HFA, sodium chloride flush, sodium chloride, ondansetron OR ondansetron, magnesium sulfate, potassium chloride, acetaminophen, HYDROmorphone Intake/Output Summary (Last 24 hours) at 02/05/2024 1357 Last data filed at 02/05/2024 0849 Gross per 24 hour Intake 1628.95 ml Output 400 ml Net 1228.95 ml Exam: BP (!) 145/77 Pulse 60 Temp 97.9 F (36.6 C) (Oral) Resp 18 Ht 1.575 m (5' 2.01 ) Wt 86.5 kg (190 lb 9.6 oz) SpO2 98% BMI 34.85 kg/m General appearance: No apparent distress, appears stated age and cooperative. HEENT: Conjunctivae/corneas clear. Neck: Trachea midline. Respiratory: Normal respiratory effort. Clear to auscultation Cardiovascular: Regular rate and rhythm Abdomen: Soft, non-tender, non-distended with normal bowel sounds. Musculoskeletal: No clubbing, cyanosis or edema bilaterally Neuro: Non Focal. Capillary Refill: Brisk,< 3 seconds Peripheral Pulses: +2 palpable, equal bilaterally Labs: Recent Labs 02/03/24 1423 WBC 10.0 HGB 11.2* HCT 35.0* PLT 275 Recent Labs 02/03/24 1423 NA 140 K 4.0 CL 109* CO2 22 BUN 16 CREATININE 0.80 CALCIUM 8.7 No results for input(s): AST , ALT , BILIDIR , BILITOT , ALKPHOS in the last 72 hours. No results for input(s): INR in the last 72 hours. No results for input(s): CKTOTAL , TROPONINI in the last 72 hours. Urinalysis: No results found for: NITRU , WBCUA , BACTERIA , RBCUA , BLOODU , SPECGRAV , GLUCOSEU Radiology: XR CHEST ABDOMEN NG PLACEMENT Final Result Enteric tube tip in the fundus of the stomach. Assessment/Plan: GERD Status post Niesen fundoplication -Surgeon;l doing well today Asthma -Denies shortness of breath; SpO2 90s 2 liters -Oxygen protocol -Symbicort twice daily with as needed albuterol Arthritis, fibromyalgia, trigeminal neuralgia -Pain management per surgeon Hyperlipidemia -Home medication includes atorvastatin 40 mg daily; ok to resume on d/c Active Hospital Problems Diagnosis Date Noted Status post Otf fundoplication [Z98.890] 02/04/2024 GERD (gastroesophageal reflux disease) [K21.9] 02/02/2024 Additional work up or/and treatment plan may be added today or then after based on clinical progression. I am managing a portion of pt care. Some medical issues are handled by other specialists. Additional work up and treatment should be done in out pt setting by pt PCP and other out pt providers. In addition to examining and evaluating pt, I spent additional time explaining care, normal and abnormal findings, and treatment plan. All of pt questions were answered. Counseling, diet and education were provided. Case will be discussed with nursing staff when appropriate. Family will be updated if and when appropriate. Diet: ADULT DIET; Dysphagia - Soft and Bite Sized Code Status: Full Code PT/OT Eval Patient is doing wonderfully. She tolerated liquid diet for breakfast without difficulty. She is ready for soft food for lunch. If she can tolerate this she will be discharged home. Shift assessment completed. Patient is A&Ox4. Medications were given per NOV. PRN dose of dilaudid was given at 2052 for 9/10 abdominal pain. Patient ambulated to bathroom, tolerated well. Call light within reach. 2202: Patient states dilaudid 0.2 mg is not touching her pain. Dr. Burgos notified via perfect serve. 2221: Increase dilaudid to 0.5mg Q2 PRN per Dr. Burgos via telephone order. 2252: PRN dose of dilaudid 0.5 mg was given or patients 9/10 abdominal pain. 02/04/24 1300 RT Protocol History Pulmonary Disease 0 Respiratory pattern 0 Breath sounds 0 Cough 0 Indications for Bronchodilator Therapy On home bronchodilators Bronchodilator Assessment Score 0 documented in this encounter [facility] 02-05-2024 Hospital course Narrative Physician Discharge Summary Patient ID: Georgia Junior [id number] y.o. 1965 Admit date: 02/04/2024 Discharge date and time: No discharge date for patient encounter. 02/05/2024 Admitting Physician: Jose Manuel Burgos MD Discharge Physician: Same Admission Diagnoses: GERD (gastroesophageal reflux disease) [K21.9] Status post Otf fundoplication [Z98.890] Discharge Diagnoses: Same Admission Condition: good Discharged Condition: good Indication for Admission: Surgery Hospital Course: Patient was admitted day of surgery for a fundoplication for severe GERD. Surgery went very well. By postoperative day 1 she was tolerating soft food and discharged home. Consults: none Significant Diagnostic Studies: None Treatments: surgery: Laparoscopic Otf fundoplication Discharge Exam: BP (!) 145/77 Pulse 60 Temp 97.9 F (36.6 C) (Oral) Resp 18 Ht 1.575 m (5' 2.01 ) Wt 86.5 kg (190 lb 9.6 oz) SpO2 98% BMI 34.85 kg/m General Appearance: Alert, cooperative, no distress, appears stated age Head: Normocephalic, without obvious abnormality, atraumatic Eyes: PERRL, conjunctiva/corneas clear, EOM's intact, fundi benign, both eyes Ears: Normal TM's and external ear canals, both ears Nose: Nares normal, septum midline, mucosa normal, no drainage or sinus tenderness Throat: Lips, mucosa, and tongue normal; teeth and gums normal Neck: Supple, symmetrical, trachea midline, no adenopathy; thyroid: no enlargement/tenderness/nodules; no carotid bruit or JVD Back: Symmetric, no curvature, ROM normal, no CVA tenderness Lungs: Clear to auscultation bilaterally, respirations unlabored Chest Wall: No tenderness or deformity Heart: Regular rate and rhythm, S1 and S2 normal, no murmur, rub or gallop Breast Exam: No tenderness, masses, or nipple abnormality Abdomen: Soft, non-tender, bowel sounds active all four quadrants, no masses, no organomegaly Genitalia: Normal female without lesion, discharge or tenderness Rectal: Normal tone ;guaiac negative stool Extremities: Extremities normal, atraumatic, no cyanosis or edema Pulses: 2+ and symmetric all extremities Skin: Skin color, texture, turgor normal, no rashes or lesions Lymph nodes: Cervical, supraclavicular, and axillary nodes normal Neurologic: CNII-XII intact, normal strength, sensation and reflexes throughout Disposition: home In process/preliminary results: Outstanding Order Results No orders found for last 30 day(s). Patient Instructions: Current Discharge Medication List START taking these medications Details oxyCODONE (ROXICODONE) 5 MG immediate release tablet Take 1 tablet by mouth every 6 hours as needed for Pain for up to 7 days. Max Daily Amount: 20 mg Qty: 25 tablet, Refills: 0 Comments: Reduce doses taken as pain becomes manageable Associated Diagnoses: Status post Otf fundoplication CONTINUE these medications which have NOT CHANGED Details doxycycline hyclate (VIBRAMYCIN) 100 MG capsule Take 1 capsule by mouth 2 times daily methylphenidate (RITALIN) 10 MG tablet TAKE 1 TABLET BY MOUTH 3 TIMES A DAY, PATIENT CAN TAKE 1 TAB IN THE MORNING AND 2 IN THE EVENING terazosin (HYTRIN) 5 MG capsule Take 1 capsule by mouth nightly sucralfate (CARAFATE) 1 GM/10ML suspension Take 10 mLs by mouth 4 times daily acetaminophen (TYLENOL) 500 MG tablet Take 2 tablets by mouth as needed albuterol sulfate HFA (PROVENTIL;VENTOLIN;PROAIR) 108 (90 Base) MCG/ACT inhaler Inhale 2 puffs into the lungs every 4 hours as needed alendronate (FOSAMAX) 70 MG tablet Take 1 tablet by mouth once a week amitriptyline (ELAVIL) 75 MG tablet Take 1 tablet by mouth daily atorvastatin (LIPITOR) 40 MG tablet Take 1 tablet by mouth daily brexpiprazole (REXULTI) 3 MG TABS tablet Take 1 tablet by mouth daily calcium citrate-vitamin D (CITRACAL+D) 315-5 MG-MCG TABS per tablet 1 tablet carBAMazepine (TEGRETOL) 200 MG tablet Take 1 tablet by mouth 2 times daily Cetirizine HCl 10 MG CAPS Take 10 mg by mouth 2 times daily clobetasol (TEMOVATE) 0.05 % cream Apply 1 Application topically as needed vitamin D3 (CHOLECALCIFEROL) 125 MCG (5000 UT) TABS tablet Take 1 tablet by mouth daily dicyclomine (BENTYL) 20 MG tablet Take 0.5 tablets by mouth 3 times daily Dulaglutide 4.5 MG/0.5ML SOPN Inject 4.5 mg into the skin once a week docusate (COLACE, DULCOLAX) 100 MG CAPS Take 100 mg by mouth 2 times daily as needed etodolac (LODINE) 200 MG capsule Take 1 capsule by mouth 2 times daily ipratropium (ATROVENT) 0.06 % nasal spray 2 sprays 2 times daily potassium chloride (KLOR-CON M) 20 MEQ extended release tablet Take 1 tablet by mouth 2 times daily levETIRAcetam (KEPPRA) 250 MG tablet Take 1 tablet by mouth 2 times daily mometasone-formoterol (DULERA) 200-5 MCG/ACT inhaler Inhale 2 puffs into the lungs 2 times daily pilocarpine (SALAGEN) 7.5 MG tablet Take 1 tablet by mouth 3 times daily pramipexole (MIRAPEX) 1 MG tablet Take 1 tablet by mouth 2 times daily tiZANidine (ZANAFLEX) 4 MG tablet Take 1 tablet by mouth every 6 hours as needed topiramate (TOPAMAX) 100 MG tablet Take 1 tablet by mouth daily omeprazole (PRILOSEC) 20 MG capsule Take 2 capsules by mouth daily pregabalin (LYRICA) 150 MG capsule Take 1 capsule by mouth three times daily. DULoxetine (CYMBALTA) 60 MG capsule Take 1 capsule by mouth 2 times daily STOP taking these medications divalproex (DEPAKOTE ER) 250 MG extended release tablet Comments: Reason for Stopping: Activity: no heavy lifting for 6 weeks Diet: Soft food and noncarbonated drinks for 2 weeks Wound Care: as directed Follow-up with Dr. Burgos in 3 weeks. Signed: Dr. Burgos 02/05/2024 10:35 AM documented in this encounter [facility] 02-05-2024 Hospital Discharge instructions Jose Manuel Burgos MD - 02/05/2024 10:35 AM EDT Soft food and noncarbonated beverages for 2 weeks then advance to regular diet. No lifting more than 15 pounds for [address] while taking narcotics. May remove surgical dressings and shower. Recover incisions with fresh gauze daily until healed. documented in this encounter [facility] 12-11-2023 Hospital Discharge instructions Ambulatory OrdersReferral to Thoracic Surgery Time Frame: 12/11/23, Location: [facility] Work Phone: 12-09-2023 Hospital Discharge instructions Obi Silvestre MD - 12/09/2023 12:11 PM EDT Patient Instructions after an endoscopy or colonoscopy The anesthetics, sedatives or narcotics which were given to you today will be acting in your body for the next 24 hours, so you might feel a little sleepy or groggy. This feeling should slowly wear off. Carefully read and follow the instructions. You received sedation today: - Do not drive or operate any machinery or power tools of any kind. - No alcoholic beverages today, not even beer or wine. - Do not make any important decisions or sign any legal documents. - No over the counter medications that contain alcohol or that may cause drowsiness. - Do not make any important decisions or sign any legal documents. While it is common to experience mild to moderate abdominal distention, gas, or belching after your procedure, if any of these symptoms occur following discharge from the GI Lab or within one week of having your procedure, call the [facility] to be advised whether a visit to your nearest Urgent Care or Emergency Department is indicated. Take this paper with you if you go. - If you develop an allergic reaction to the medications that were given during your procedure such as difficulty breathing, rash, hives, severe nausea, vomiting or lightheadedness.- If you experience chest pain, shortness of breath, severe abdominal pain, fevers and chills. -If you develop signs and symptoms of bleeding such as blood in your spit, if your stools turn black, tarry, or bloody - If you have not urinated within 8 hours following your procedure.- If your IV site becomes painful, red, inflamed, or looks infected. documented in this encounter [facility] Work Phone: 12-09-2023 Attending History and physical note H&P reviewed. The patient was examined and there are no changes to the H&P. Source Note - Shireen Cronin RN - 11/24/2023 10:[address] Silvestre's office received a referral from Dr. Matti Newsome for this patient to undergo a repeat EGD. Dr. Silvestre reviewed the referral on 11/24/2023. Per Dr. Silvestre, we can schedule for EGD possible EMR. Who is oncology for this patient? If no oncologist will benefit from seeing one. Spoke to Belkys from Dr. Newsome's office on 11/24/2023. Per referring office, patient is not seeing oncology but will advise Dr. Newsome that Dr. Silvestre is recommending oncology consultation and to place request if Dr. Newsome agrees. Marilyn Esteban was notified to call and schedule this patient for an EGD/possible EMR with any Dr. Silvestre. Contact Shireen Cronin RN at [phone] for any questions. See below for supporting clinical information from the referral sent by Dr. Newsome's office: -Diagnosis: benign carcinoid tumor of unspecified site -Problems: carcinoid tumor -Patient has neuroendocrine hyperplasia of the stomach. Because appeared normal but this can be a forerunner of carcinoid tumors. She needs repeat EGD but this can be done in the [facility]. Refer to Dr. Vera or her partner Dr. Silvestre -EGD 10/27/[address] Newsome: EGD biopsy and COV[place] pH placement: Hiatal hernia Mild reflux esophagitis Z line was regular and at 35cm Capsule was placed at 29cm -Supplemental for findings of consultation report from [facility]: Duodenal biopsy: Duodenal mucosa with no significant diagnostic alteration Stomach antrum biopsy: gastric antral type mucosa with neuroendocrine hyperplasia. Negative for intestinal metaplasia or dysplasia Esophagus biopsy: Active esophagitis -Pathological Diagnosis: Duodenum, biopsy: unremarkable duodenal mucosa Stomach, antrum, biopsy: Small carcinoid tumor (0.3mm), confirmed on synaptophysin staining. Esophagus, biopsy: benign esophageal mucosa with features suggestive of gastroesophageal reflux disease [facility] Work Phone: 12-09-2023 History and physical note H&P reviewed. The patient was examined and there are no changes to the H&P. Source Note - Shireen Cronin RN - 11/24/2023 10:[address] Silvestre's office received a referral from Dr. Matti Newsome for this patient to undergo a repeat EGD. Dr. Silvestre reviewed the referral on 11/24/2023. Per Dr. Silvestre, we can schedule for EGD possible EMR. Who is oncology for this patient? If no oncologist will benefit from seeing one. Spoke to Belkys from Dr. Newsome's office on 11/24/2023. Per referring office, patient is not seeing oncology but will advise Dr. Newsome that Dr. Silvestre is recommending oncology consultation and to place request if Dr. Newsome agrees. Marilyn Esteban was notified to call and schedule this patient for an EGD/possible EMR with any Dr. Silvestre. Contact Shireen Cronin RN at [phone] for any questions. See below for supporting clinical information from the referral sent by Dr. Newsome's office: -Diagnosis: benign carcinoid tumor of unspecified site -Problems: carcinoid tumor -Patient has neuroendocrine hyperplasia of the stomach. Because appeared normal but this can be a forerunner of carcinoid tumors. She needs repeat EGD but this can be done in the [facility]. Refer to Dr. Vera or her partner Dr. Silvestre -EGD 10/27/[address] Newsome: EGD biopsy and COV[place] pH placement: Hiatal hernia Mild reflux esophagitis Z line was regular and at 35cm Capsule was placed at 29cm -Supplemental for findings of consultation report from [facility]: Duodenal biopsy: Duodenal mucosa with no significant diagnostic alteration Stomach antrum biopsy: gastric antral type mucosa with neuroendocrine hyperplasia. Negative for intestinal metaplasia or dysplasia Esophagus biopsy: Active esophagitis -Pathological Diagnosis: Duodenum, biopsy: unremarkable duodenal mucosa Stomach, antrum, biopsy: Small carcinoid tumor (0.3mm), confirmed on synaptophysin staining. Esophagus, biopsy: benign esophageal mucosa with features suggestive of gastroesophageal reflux disease documented in this encounter [facility] Work Phone: 12-01-2023 Miscellaneous Notes Last Office Visit: 10/14/2023 Next Office Visit: Visit date not found Last Urine Drug Screen: No results found for: BENZOSCRN OARRS appropriate documented in this encounter [facility] 12-01-2023 Telephone encounter Note Last Office Visit: 10/14/2023 Next Office Visit: Visit date not found Last Urine Drug Screen: No results found for: BENZOSCRN OARRS appropriate [facility] 11-30-2023 Miscellaneous Notes Georgia called to schedule her procedure. Pain Management still has not received clearance from Dr Prasad to hold her Trulicity for 14 days. She was informed that the request was sent for the third time today and that she will be called as soon as it is received. documented in this encounter [facility] 11-30-2023 Telephone encounter Note Georgia called to schedule her procedure. Pain Management still has not received clearance from Dr Prasad to hold her Trulicity for 14 days. She was informed that the request was sent for the third time today and that she will be called as soon as it is received. [facility] 11-16-2023 Miscellaneous Notes [employer] left a voicemail asking if there was clearance for her procedure. Request for injectable clearance was sent, 10/14. documented in this encounter [facility] 11-16-2023 Telephone encounter Note Georgia left a voicemail asking if there was clearance for her procedure. Request for injectable clearance was sent, 10/14. [facility] 11-03-2023 Miscellaneous Notes Last OV: 10/14/23 Next OV: awaiting ins appr for Caudal OARRS appropriate: yes rx for norco from dentist #8 for 2 days Last UDS: na Pharmacy: [facility] documented in this encounter [facility] 11-03-2023 Telephone encounter Note Last OV: 10/14/23 Next OV: awaiting ins appr for Caudal OARRS appropriate: yes rx for norco from dentist #8 for 2 days Last UDS: na Pharmacy: [facility] 10-27-2023 Procedure note [facility] 10-14-2023 History of Present illness Narrative [facility] [address] [place] [address] Patient: Georgia Junior Sex: female : 1965 Age: 58 y.o. PCP: PCP Not In System 10/14/2023 Georgia Junior is here for a follow up after increasing pregabalin 150 mg TID. Patient states she feels better and the medication is working better. Chief Complaint Patient presents with Back Pain HPI: PT/HEP 07/2018 Back: 08/23/21 caudal w/ 75-80% relief 12/06/21 Gregorio L 2/3 3/4 MBB w/80% relief Right L 2/3, 3/4 radiofrequency ablation on 02/14/2022 and left L 2/3, 3/4 radiofrequency ablation with 80% relief 06/27/22 Gregorio SHGPB with 80% relief for 1 week then 30% relief that is slowly fading. 08/15/22 Lt L 4/5 / RFA w/80% relief Back Pain This is a chronic problem. The current episode started more than 1 year ago (@2016). The problem occurs constantly. The problem has been gradually worsening since onset. The pain is present in the lumbar spine and gluteal. The quality of the pain is described as aching, stabbing, shooting and burning. Radiates to: posterior LLE to foot. The pain is at a severity of 6/10. The pain is moderate. The pain is Worse during the night. Exacerbated by: pushing, pulling, bending, lifting. Stiffness is present All day. Associated symptoms include headaches, leg pain (LLE) and weakness (LLE). Pertinent negatives include no bladder incontinence, bowel incontinence, chest pain, fever, numbness or tingling. (posterior LLE to foot) Risk factors include obesity and sedentary lifestyle. Treatments tried: PT 07/2018 w/increased pain, Lyrica, Baclofen, TENS unit w/slight relief, NSAID (ibuprofen, diclofenac) BioMed w/mild relief, lumbar MBB and SI inj w/sig. relief, Prev Gregorio SI inj w/sig relief, Lt L 4/5, 01/12 RFA w/mod relief, Gregorio L 2/3 / MBB w/sig relief. The treatment provided moderate relief. The effect of pain on patient's ADLS: Moderate Impairment. Past Medical History: Diagnosis Date Anxiety Arthritis Asthma Bipolar disorder ([facility] Black-out (not amnesia) Chronic pain disorder COPD (chronic obstructive pulmonary disease) ([facility]) Depression Diverticulitis of colon Fibromyalgia, primary Fracture, tooth #3 GERD (gastroesophageal reflux disease) Hyperlipidemia Hypertension Joint pain Low back pain Narcolepsy Obesity Osteopenia Peptic ulceration RLS (restless legs syndrome) Rotator cuff injury right is torn again Stress fracture 2019 Left foot x2 Tardive dyskinesia Tremors of nervous system mouth, hands Visual impairment Past Surgical History: Procedure Laterality Date ARTHROSCOPY KNEE DEBRIDEMENT. TRICOMPARTMENTAL CHONDROPLASTY Left 12/10/2021 Performed by Presley Duffy MD at [facility] EXPRESS ARTHROSCOPY MENISCECTOMY MEDIAL AND LATERAL KNEE Left 12/10/2021 Performed by Presley Duffy MD at [facility] EXPRESS ARTHROSCOPY MENISCECTOMY KNEE Right 02/11/2023 Performed by Guillermo Rodriguez DO at [facility] EXPRESS BLADDER SURGERY BUNIONECTOMY Right CERVICAL SPINE SURGERY two surgeries 203 1nd 2017 CHOLECYSTECTOMY DEBRIDEMENT LEG Left 06/15/2019 FRACTURE SURGERY Left foot HYSTERECTOMY INJECTION BLOCK EPIDURAL CAUDAL STEROID N/A 08/23/2021 Performed by Ned Rivas MD at [facility] INJECTION BLOCK NERVE MEDIAL BRANCH bilat L 2/3, 3/4 Bilateral 12/06/2021 Performed by Ned Rivas MD at [facility] INJECTION BLOCK NERVE MEDIAL BRANCH Right L 4/5,5/1 mbb Right 11/23/2020 Performed by Ned Rivas MD at [facility] HYPOGASTRIC Bilateral 06/27/2022 Performed by Ned Rivas MD at [facility] HYPOGASTRIC SHPB N/A 10/05/2020 Performed by Ned Rivas MD at [facility] MEDIAL BRANCH NERVE BLOCK Bilateral L 2/3, 3/4 Bilateral 07/22/2019 Performed by Ned Rivas MD at [facility] INJECTION MEDIAL BRANCH NERVE BLOCK Bilateral L 2/3, 3/4 Bilateral 06/03/2019 Performed by Ned Rivas MD at [facility] MEDIAL BRANCH NERVE BLOCK: bilat L45 51 Bilateral 11/02/2017 Performed by Ned Rivas MD at [facility] MEDIAL BRANCH NERVE BLOCK: bilat L45 51 Bilateral 10/02/2017 Performed by Ned Rivas MD at [facility] SACROILIAC NERVE: bilat Bilateral 04/12/2018 Performed by Ned Rivas MD at [facility] SI JOINT Bilateral SI Joint Bilateral 01/20/2020 Performed by Ned Rivas MD at [facility] INJECTION SI JOINT Bilateral SI Joint Bilateral 11/04/2019 Performed by Ned Rivas MD at [facility] INJECTION SI JOINT BIlateral SI joint Bilateral 02/22/2018 Performed by Ned Rivas MD at [facility] KNEE ARTHROSCOPY Left repair meniscal tear and fibular head Left lumbar L4/5, L5/S1 radiofrequency ablation Left 01/11/2018 Performed by Ned Rivas MD at [facility] RADIO FREQUENCY ABLATION Left L 4/5, 5/1 Left 08/03/2020 Performed by Ned Rivas MD at [facility] RADIO FREQUENCY ABLATION Left SI Joint Left 04/13/2020 Performed by Ned Rivas MD at [facility] RADIO FREQUENCY ABLATION Right L 2/3, 3/4 Right 09/02/2019 Performed by Ned Rivas MD at [facility] RADIO FREQUENCY ABLATION RIght L 4/5, 5/1 Right 04/22/2019 Performed by Ned Rivas MD at [facility] RADIO FREQUENCY ABLATION Right SI Joint Right 05/18/2020 Performed by Ned Rivas MD at [facility] RADIO FREQUENCY ABLATION: left L45 51rfa Left 10/08/2018 Performed by Ned Rivas MD at [facility] RADIO FREQUENCY ABLATION: right L45 51rfa Right 09/24/2018 Performed by Ned Rivas MD at [facility] RADIOFREQUENCY ABLATION SPINAL Left L 2/3, 3/4 Left 02/28/2022 Performed by Ned Rivas MD at [facility] RADIOFREQUENCY ABLATION SPINAL Left L 4/5, 5/1 Left 08/15/2022 Performed by Ned Rivas MD at [facility] RADIOFREQUENCY ABLATION SPINAL right L 2/3, 3/4 Right 02/14/2022 Performed by Ned Rivas MD at [facility] RADIOFREQUENCY ABLATION SPINAL Right L 4/5, 5/1 Right 01/25/2021 Performed by Ned Rivas MD at [facility] REDUCTION MAMMAPLASTY 10/10/2019 REDUCTION MAMMAPLASTY REVERSE TOTAL SHOULDER ARTHROPLASTY Right 10/2018 RIGHT lumbar L4/5, L5/S1 radiofrequency ablation Right 12/28/2017 Performed by Ned Rivas MD at [facility] ROTATOR CUFF REPAIR Right TONSILLECTOMY TUBAL LIGATION WRIST FRACTURE SURGERY Right Allergies Allergen Reactions Latuda [Lurasidone] muscle cramps TD Dupixent Pen [Dupilumab] Other (See Comments) Swelling BLE Face gets hot and red Penicillamine Hives Cephalexin Rash Hydrochlorothiazide Rash Morphine Rash Norflex [Orphenadrine Citrate] Rash Penicillin Rash Phenoperidine Hcl Rash Pyridimal Headache Sulfa (Sulfonamide Antibiotics) Rash Vicodin [Hydrocodone-Acetaminophen] Nausea and Vomiting Vistaril [Hydroxyzine Hcl] Rash Family History Problem Relation Age of Onset Epilepsy Mother Depression Mother Hypertension Mother Cancer Mother ovarian Cancer Father brain Depression Sister Hypertension Sister Depression Brother Hypertension Brother Anesthesia problems Daughter COPD Maternal Grandfather COPD Paternal Grandfather Social History Socioeconomic History Marital status: Legally Spouse name: Not on file Number of children: Not on file Years of education: Not on file Highest education level: Not on file Occupational History Not on file Tobacco Use Smoking status: Former Smokeless tobacco: Never Vaping Use Vaping Use: Never used Substance and Sexual Activity Alcohol use: Not on file Comment: rarely Drug use: No Comment: used marijuana in the past Sexual activity: Defer Other Topics Concern Coffee No Tea No Carbonated Beverages Yes Chocolate No Social History Narrative Not on file Social Determinants of Health Financial Resource Strain: Not on file Food Insecurity: No Food Insecurity (10/14/2023) Hunger Screening Food Insecurity - Worry: Never True Food Insecurity - Inability: Never True Transportation Needs: Not on file Physical Activity: Not on file Stress: Not on file Social Connections: Not on file Interpersonal Safety: Not on file Housing Instability: Not on file Review of Systems Constitutional: Negative. Negative for chills, fatigue and fever. HENT: Negative. Eyes: Negative. Respiratory: Negative. Negative for cough and shortness of breath. Cardiovascular: Negative. Negative for chest pain. Gastrointestinal: Negative. Negative for bowel incontinence. Endocrine: Negative. Trulicity for wt loss (Tues) Genitourinary: Negative. Negative for bladder incontinence. Musculoskeletal: Positive for arthralgias (left knee (TKA 05/28/23)) and back pain. Negative for gait problem. Skin: Negative. Allergic/Immunologic: Negative. Neurological: Positive for weakness (LLE) and headaches. Negative for tingling and numbness. Hematological: Negative. Psychiatric/Behavioral: Negative. Vital Signs: BP 126/79 (BP Site: Left Arm, BP Postition: Sitting) Pulse 84 Resp 20 LMP 08/13/2013 (Approximate) Physical Exam: GENERAL - Healthy patient that appears stated age. HEENT - Normocephalic / Atraumatic, Extraoccular movements intact, trachea midline, thyroid within normal limits. CV - pulse regular, Warm extremities with appropriate color of nailbeds. RESP - No obvious wheezing, No Shortness of Breath, No overexertion response to exam maneuvers. COORDINATION - remains intact. PSYCH - Alert and Oriented x4, Attentive and appropriate, constitutionally normal, displays normal mood and affect per situation, answered questions appropriately during examination, demonstrated appropriate attention during discussion, demonstrated appropriate cognitive reasoning and understanding of the medical condition by asking appropriate questions regarding the diagnosis and risks/benefits/alternatives of treatment modalities. No obvious deficits in memory, reasoning, or intellect. Lumbar: SKIN - No rashes or bruising in the area of the patient s pain. LYMPH NODES - demonstrate no obvious enlargement. EXTREMITIES - Lower extremities are warm, with minimal edema and palpable pulses. Tenderness to palpation noted in the lumbar spine and paraspinal musculature. Pain is elicited with flexion, extension, and lateral rotation of the lumbar spine. Range of motion is diminished with these motions due to pain. Facet palpation is noted to be somewhat tender and facet loading maneuvers are mildly positive, but not concordant with the patient s normal pain complaints. STRENGTH - noted to be 5 out of 5 all muscle groups bilateral lower extremities including muscles involving hip flexion and abduction, knee flexion and extension, as well as foot dorsiflexion and plantarflexion. No notable atrophy, fasciculations or spasm. SENSORY - No notable sensory deficits in the bilateral lower extremities to touch or pinprick in all dermatomal distributions. Straight Leg Raise is Positive on the Left. Gait is normal. Assessment/Treatment Plan: [place] was seen today for back pain. Diagnoses and all orders for this visit: Spinal stenosis of lumbar region with neurogenic claudication - Case request operating room: INJECTION BLOCK EPIDURAL CAUDAL STEROID Lumbosacral spondylosis without myelopathy Continue Lyrica 150 mg TID Caudal Epidural Steroid Injection - under fluoroscopy with the use of contrast dye (unless contraindicated) It is hopeful that the described procedure will provide symptomatic pain relief. It is felt to be medically necessary noting that the patient has tried and failed more conservative modalities of therapy and this is the next most appropriate step. The procedure was described in detail to the patient as well as the potential benefits of pain reduction alongside risks of the procedure and alternatives. Risks were described as including, but not limited to bleeding, infection, nerve damage, spinal cord injury, paralysis, stroke, dural puncture headache, and medication reaction. The patient expressed understanding regarding the risks and benefits and wishes to proceed. It was explained that Caudal injections often require a series of 2-3 before significant relief is noted, but we will determine after each injection if another one is indicated. Depending on the amount and duration of relief obtained from the injection, additional modalities of therapy including medications and physical therapy may need to be utilized alongside or following the injections. Follow up 2 weeks after procedure The medications I have prescribed have been reviewed for medication interactions/contraindications and/or for upcoming procedures: continue current medication regimen without any changes. DISCUSSION: Treatment options discussed with patient and all questions answered to patient's satisfaction. Discussed the rules and regulations surrounding prescription of opioids and compliance at length. Failure to follow the rules and regulation will result in tapering and discontinuation of medications if applicable. The patient has been instructed as to the type of medication prescribed along with directions for use. Potential side effects have been discussed, along with risks and benefits of taking this medication. (S)he was instructed as to what to do if (s)he experiences side effects, including when to discontinue the medication. (S)he was advised to call this office in this event. Also discussed at length safety and security of RX and medications. Due to the high risk nature of this patient's pain medication regimen, frequent office visit refill appointments (every 1-3 months) are medically necessary to monitor for an addiction disorder. Prescribed medication that requires intensive monitoring for toxicity Lyrica. OARRS was reviewed, discussed and appropriate for medications prescribed. The spine model was demonstrated and MRI was reviewed and used to explain the condition. Chronic conditions not treated during this visit that affected my overall medical decision making: Comorbidity- Obesity The patient does have a comorbid condition of obesity. This will be taken into account in that obesity will contribute to certain pain conditions. It can contribute to pain from degenerative disc disease as well as osteoarthritis of the joints. Many neuropathic symptoms are also amplified due to axial spine loading. Special benefits will also need to be given to procedures. Many procedures are technically more difficult in the light of severe obesity. I will also consider the possibility of undiagnosed obstructive sleep apnea (which often accompanies obesity) when prescribing any narcotic medications. I will weigh the risks and benefits and fully discuss them with the patient for these reasons. Comorbidity- Diabetes The patient has a history of diabetes mellitus currently managed with medications. This will need to be considered prior to any procedure that would require the injection of steroid in that the patient may experience a transient increase in glucose as a result. Additional consideration will need to be given to timing the procedure early in the morning in that the patient will need to be fasting prior to the administration of anesthesia. Every effort will be made to perform the procedure as a 1st case due to this condition. And the patient will be instructed to hold their diabetic medications on that morning. If necessary, a blood glucose test can also be performed that morning. The risks/ benefits/ and alternatives will be weighed and explained to the patient prior to any procedure. OARRS: Reviewed. Scribe Statement: Scribed for and in the presence of HUBER RAMOS PA-C by Viry Austin CNA. Provider Statement: IHUBER PA-C, personally performed the services described in the documentation, as scribed by Viry Austin CNA in my presence, and it is both accurate and complete. Viry Austin CNA 10/14/23 1229 Huber Ramos PA-C 10/14/23 1241 [facility] Instructions Viry Austin CNA - 10/14/2023 10:45 AM EST Epidural Steroid Injection (ANAM) / Nerve Root Injection / Nerve Block These procedure(s) involve the injection of a steroid and anesthetic into the epidural space or the nerve sheath that is both diagnostic and potentially therapeutic for alleviating discomfort of the legs and arms secondary to compression of the respective nerves due to bulging discs, bone spurs and other potential causes. Steroids are potent anti-inflammatory drugs that act to decrease the swollen and inflamed nerves thus relieving your clinical symptoms. How Long Will This Procedure Last? The extent and duration of pain relief may depend on the amount of inflammation and how many areas are involved. Other coexisting factors may be responsible for your pain. You and your physician will discuss expected results of procedure(s). After Your Injection You may experience soreness and tenderness at the area of treatment. This pain may not occur until later today after the numbing medicine wears off. The steroid can take 3-5 days to work and provide noticeable improvement. Activity You may feel temporary numbness, weakness or tingling: In the neck, arm, or fingertips (if your procedure was done in your neck) In the legs (if your procedure was done in your lower back) These symptoms are normal, and should subside within 3-4 hours. In that time, be careful to avoid falls. As a safety precaution, you must have a hazardous materials driver after a lumbar nerve root injection, even if you do not receive sedation. Resume activity as tolerated when function has returned. Medications Resume your routine medications after your procedure. You may resume blood thinners per your regular schedule after the procedure. If you received sedation: If you received sedation for your procedure, you may feel sleepy or not yourself for several hours today. For the next 24 hours avoid activities that requires alertness or coordination. This includes: Driving or operating heavy machinery Using power tools Consuming alcohol Do not make important or complex decisions or sign legal documents in the next 24 hours. Other Instructions: If you feel severe pain at the injection site with swelling and redness, increased leg weakness, a fever of 101 or higher, headache (or worsening headache), changes in vision or urinary retention: Please call the office at , or have someone take you to the nearest emergency room. Tell the emergency room staff that you recently had a spine injection. A doctor must evaluate you for bleeding and injection complications. If you lose control over bowel, bladder, or legs: Go to the nearest emergency room. If you are diabetic, the steroids used in this procedure can increase your blood sugar. If your blood sugar is 250mg/dL or higher, contact your primary care physician, or the doctor who manages your diabetes, to discuss how to get it back to normal. [email or web address] Miscellaneous Notes Telephone message received from [facility] requesting refill for Pregabalin. Call returned to pharmacy - public relations writer left message on pharmacist line informing pharmacist that this office does not accept refill requests pharmacy refill request. [email or web address] 10-08-2023 Telephone encounter Note Telephone message received from [facility] requesting refill for Pregabalin. Call returned to pharmacy - public relations writer left message on pharmacist line informing pharmacist that this office does not accept refill requests pharmacy refill request. [email or web address] 10-01-2023 Evaluation note Encounter Date Diagnosis Assessment Notes Sep, Narcolepsy (ICD-10 - G47.419) [facility] Other 01-17-2024 Miscellaneous Notes* Telephone Encounter - Ivelisse Thomas RN - 09/30/2023 12:20 PM EST Last OV: 08/25/2023 Next OV: 10/14/2023 OARRS appropriate: yes Last UDS: n/a Pharmacy: [facility] Patient called and requested refill for Etodolac and Pregabalin. Pregabalin was last filled 09/21/2023 therefore it is too soon to process the refill request. This can be done at patient's next office visit. [facility] [employer] [id number] Telephone encounter Note* Telephone Encounter - Ivelisse Thomas RN - 09/30/2023 12:20 PM EST Last OV: 08/25/2023 Next OV: 10/14/2023 OARRS appropriate: yes Last UDS: n/a Pharmacy: [facility] Patient called and requested refill for Etodolac and Pregabalin. Pregabalin was last filled 09/21/2023 therefore it is too soon to process the refill request. This can be done at patient's next office visit. [id number] Evaluation note* Encounter Date Diagnosis Assessment Notes Treatment Notes Treatment Clinical Notes Sep, Gastroesophageal ref lux disease without esophagitis (ICD-10 - K21.9) [facility] Other 01-08-2024 Evaluation note* Encounter Date Diagnosis Assessment Notes Treatment Notes Treatment Clinical Notes Sep, Heartburn (ICD-10 - R12) Pt states she has heartburn every night. Pt states the omeprazole is not helping. Pt to proceed with EGD [place]/ pt advised to stop PPI a week prior Sep, Dyspepsia (ICD-10 - K30) [facility] Other 12-21-2023 Evaluation note* Encounter Date Diagnosis Assessment Notes Treatment Notes Treatment Clinical Notes Aug, Nausea and vomiting, intractability of vomiting not specified, unspecified vomiting type (ICD-10 - R11.2) [facility] Other 12-13-2023 Evaluation note* Encounter Date Diagnosis Assessment Notes Treatment Notes Treatment Clinical Notes Aug, Narcolepsy (ICD-10 - G47.419) Aug, Pulmonary nodule (ICD-10 - R91.1) Aug, Cough variant asthma (ICD-10 - J45.991) [facility] Other 12-12-2023 Evaluation note* Encounter Date Diagnosis Assessment Notes Treatment Notes Treatment Clinical Notes Aug, Nausea and vomiting, intractability of vomiting not specified, unspecified vomiting type (ICD-10 - R11.2) [facility] Other 11-22-2023 Evaluation note* Encounter Date Diagnosis Assessment Notes Treatment Notes Treatment Clinical Notes Jul, Narcolepsy (ICD-10 - G47.419) [facility] Other 11-21-2023 Evaluation note* Encounter Date Diagnosis Assessment Notes Treatment Notes Treatment Clinical Notes Jul, Dyspepsia (ICD-10 - R10.13) [facility] Other 10-18-2023 Evaluation note* Encounter Date Diagnosis Assessment Notes Treatment Notes Treatment Clinical Notes Jun, Narcolepsy (ICD-10 - G47.419) [facility] Other 10-16-2023 Evaluation note* Encounter Date Diagnosis Assessment Notes Treatment Notes Treatment Clinical Notes Jun, Cyclic vomiting syndrome (ICD-10 - G43.A0) [facility] Other 09-11-2023 Evaluation note* Encounter Date Diagnosis Assessment Notes Treatment Notes Treatment Clinical Notes May, Nausea and vomiting, intractability of vomiting not specified, unspecified vomiting type (ICD-10 - R11.2) [facility] Other 09-06-2023 Evaluation note* Encounter Date Diagnosis Assessment Notes Treatment Notes Treatment Clinical Notes May, Narcolepsy (ICD-10 - G47.419) May, Pulmonary nodule (ICD-10 - R91.1) May, Cough variant asthma (ICD-10 - J45.991) [facility] Other 08-21-2023 Evaluation note* Encounter Date Diagnosis Assessment Notes Treatment Notes Treatment Clinical Notes Apr, Cyclic vomiting syndrome (ICD-10 - G43.A0) Continue amitriptyline 75 mg as directed Apr, GERD (gastroesophageal reflux disease) (ICD-10 - K21.9) Stop pantoprazole Patient may use gaviscon at bedtime Rto 3 months [facility] Other 08-21-2023 Evaluation note* Encounter Date Diagnosis Assessment Notes Treatment Notes Treatment Clinical Notes Apr, Narcolepsy (ICD-10 - G47.419) [facility] Other 07-17-2023 Evaluation note* Encounter Date Diagnosis Assessment Notes Treatment Notes Treatment Clinical Notes Mar, Narcolepsy (ICD-10 - G47.419) [facility] Other 06-22-2023 Evaluation note* Encounter Date Diagnosis [...] - R11.0) Refill Zofran 4 mg tablet. [facility] Other 05-10-2023 Evaluation note* Encounter Date Diagnosis Assessment Notes Treatment Notes Treatment Clinical Notes January, Narcolepsy (ICD-10 - G47.419) [facility] Other 04-04-2023 Evaluation note* Encounter Date Diagnosis Assessment Notes Treatment Notes Treatment Clinical Notes Dec, Narcolepsy (ICD-10 - G47.419) [facility] Other 04-03-2023 Evaluation note* Encounter Date Diagnosis Assessment Notes Treatment Notes Treatment Clinical Notes Dec, Nausea and vomiting, intractability of vomiting not specified, unspecified vomiting type (ICD-10 - R11.2) [facility] Other 03-27-2023 NotePROCEDURE: Right trigeminal nerve injection. [...] well with no complications. Electronically signed by Anne Limon MD 12/08/22 11:01 [facility] 12-08-2022 NotePROCEDURE: Right trigeminal nerve injection. Physician: [...] on his/her behalf by a trained medical aide. The creation of this document is based on the provider?s statements to the medical aide. Electronically signed by Anne Limon MD 12/08/22 11:00 EDT Electronically signed by Chiquita Glynn 12/08/2022 10:55 [facility]03-27-2023 NoteHistory of Present Illness CHIEF COMPLAINT: Trigeminal [...] qualifying data available. Electronically signed by Anne Lmion MD 12/08/22 10:53 [facility] 11-20-2022 Evaluation note* Encounter Date Diagnosis Assessment Notes Treatment Notes Treatment Clinical Notes Nov, Narcolepsy (ICD-10 - G47.419) Nov, Pulmonary nodule (ICD-10 - R91.1) Nov, Cough variant asthma (ICD-10 - J45.991) [facility] Other 03-01-2023 Evaluation note* Encounter Date Diagnosis Assessment Notes Treatment Notes Treatment Clinical Notes Nov, Narcolepsy (ICD-10 - G47.419) [facility] Other 02-22-2023 Evaluation note* Encounter Date Diagnosis Assessment Notes Treatment Notes Treatment Clinical Notes Oct, Nausea and vomiting, intractability of vomiting not specified, unspecified vomiting type (ICD-10 - R11.2) Oct, Cyclic vomiting syndrome (ICD-10 - G43.A0) [facility] Other 01-23-2023 Evaluation note* Encounter Date Diagnosis Assessment Notes Treatment Notes Treatment Clinical Notes Sep, Narcolepsy (ICD-10 - G47.419) [facility] Other 12-28-2022 Evaluation note* Encounter Date Diagnosis [...] AP, lateral x-rays of the right knee. [facility] Other 12-13-2022 Evaluation note* Encounter Date Diagnosis Assessment Notes Treatment Notes Treatment Clinical Notes Aug, Narcolepsy (ICD-10 - G47.419) Aug, Pulmonary nodule (ICD-10 - R91.1) Aug, Cough variant asthma (ICD-10 - J45.991) [facility] Other 11-15-2022 Evaluation note* Encounter Date Diagnosis Assessment Notes Treatment Notes Treatment Clinical Notes Jul, Narcolepsy (ICD-10 - G47.419) [facility] Other 11-10-2022 Evaluation note* Encounter Date Diagnosis Assessment Notes Treatment Notes Treatment Clinical Notes Jul, Cyclic vomiting syndrome (ICD-10 - G43.A0) [facility] Other 09-07-2022 Evaluation note* Encounter Date Diagnosis Assessment Notes Treatment Notes Treatment Clinical Notes May, Narcolepsy (ICD-10 - G47.419) May, Pulmonary nodule (ICD-10 - R91.1) May, Cough variant asthma (ICD-10 - J45.991) [facility] Other 08-24-2022 Evaluation note* Encounter Date Diagnosis Assessment Notes Treatment Notes Treatment Clinical Notes Apr, Narcolepsy (ICD-10 - G47.419) [facility] Other 07-27-2022 Evaluation note* Encounter Date Diagnosis Assessment Notes Treatment Notes Treatment Clinical Notes Mar, Narcolepsy (ICD-10 - G47.419) [facility] Other 06-27-2022 Evaluation note* Encounter Date Diagnosis Assessment Notes Treatment Notes Treatment Clinical Notes Feb, Narcolepsy (ICD-10 - G47.419) [facility] Other 05-18-2022 Evaluation note* Encounter Date Diagnosis Assessment Notes Treatment Notes Treatment Clinical Notes January, Narcolepsy (ICD-10 - G47.419) [facility] Other 05-14-2022 Evaluation note* Encounter Date Diagnosis Assessment Notes Treatment Notes Treatment Clinical Notes January, Cyclic vomiting syndrome (ICD-10 - G43.A0) [facility] Other 04-25-2022 Evaluation note* Encounter Date Diagnosis Assessment Notes Treatment Notes Treatment Clinical Notes Dec, Narcolepsy (ICD-10 - G47.419) [facility] Other 03-24-2022 Evaluation note* Encounter Date Diagnosis Assessment Notes Treatment Notes Treatment Clinical Notes Nov, Narcolepsy (ICD-10 - G47.419) Nov, Pulmonary nodule (ICD-10 - R91.1) Nov, Cough variant asthma (ICD-10 - J45.991) [facility] Other 03-10-2022 Evaluation note* Encounter Date Diagnosis Assessment Notes Treatment Notes Treatment Clinical Notes Nov, Cyclic vomiting syndrome (ICD-10 - G43.A0) [facility] Other 03-10-2022 Evaluation note* Encounter Date Diagnosis Assessment Notes Treatment Notes Treatment Clinical Notes Nov, Narcolepsy (ICD-10 - G47.419) [facility] Other 02-25-2022 Evaluation note* Encounter Date Diagnosis Assessment Notes Treatment Notes Treatment Clinical Notes Oct, Narcolepsy (ICD-10 - G47.419) [facility] Other 02-14-2022 Evaluation note* Encounter Date Diagnosis [...] colon juan luis yps (ICD-10 - Z86.010) [facility] Other 01-24-2022 Evaluation note* Encounter Date Diagnosis Assessment Notes Treatment Notes Treatment Clinical Notes Sep, Narcolepsy (ICD-10 - G47.419) [facility] Other 12-09-2021 Evaluation note* Encounter Date Diagnosis Assessment Notes Treatment Notes Treatment Clinical Notes Aug, Narcolepsy (ICD-10 - G47.419) Aug, Pulmonary nodule (ICD-10 - R91.1) Aug, Cough variant asthma (ICD-10 - J45.991) [facility] Other 11-11-2021 Evaluation note* Encounter Date Diagnosis Assessment Notes Treatment Notes Treatment Clinical Notes Jul, Narcolepsy (ICD-10 - G47.419) [facility] Other 10-05-2021 Evaluation note* Encounter Date Diagnosis Assessment Notes Treatment Notes Treatment Clinical Notes Jun, Narcolepsy (ICD-10 - G47.419) Jun, Pulmonary nodule (ICD-10 - R91.1) Jun, Cough variant asthma (ICD-10 - J45.991) [facility] Other 08-13-2020 History of Present illness Narrative* [...] is not pertinent to the presenting problem. [facility] [address] DO Work Phone: 1([phone] 555-637408-13-2020 History of Present illness Narrative* [place] [employer] [...] is not pertinent to the presenting problem. [facility] [address] DO Work Phone: 1([phone]) 518-400208-13-2020 History of Present illness Narrative* [place] JUNIOR [...] is not pertinent to the presenting problem. NX-Bvedjblgbmzz-Rfpaac [address] Work Phone: 1([phone] 113-290408-13-2020 History of Present illness Narrative* [place] JUNIOR [...] is not pertinent to the presenting problem. FR-[address] DO Work Phone: 1(139) 681-890108-13-2020 History of Present illness Narrative* [place] JUNIOR [...] is not pertinent to the presenting problem. XY-Hzsfnriluxlw-Vcjkro [address] Work Phone: 1([phone] 226-715608-13-2020 History of Present illness Narrative* [place] JUNIOR [...] is not pertinent to the presenting problem. KH-Gvqiftrosdbm-Cvcclq 200 Work Phone: 1([phone]) 151-517408-13-2020 History of Present illness Narrative* [place] JUNIOR [...] is not pertinent to the presenting problem. AO-Ilnvufudkhfi-Cbvjffhmk [address] DO Work Phone: Evaluation noteNo InformationNort [employer] Other Evaluation noteNo assessment information available [facility] Work Phone: Evaluation note* Diagnosis Lumbar radiculopathy Thoracic or lumbosacral neuritis or radiculitis, unspecified documented in this encounter [facility] Work Phone: Evaluation note* Diagnosis Spinal stenosis of lumbar region with neurogenic claudication- Primary Lumbosacral spondylosis without myelopathy [facility] Diagnosis Onset Date Resolution Status GERD (gastroesophageal reflux disease) [facility] Work Phone: Evaluation note* Diagnosis Lumbosacral spondylosis without myelopathy Disorder of sacrum Disorders of sacrum documented [facility] Diagnosis Spinal stenosis of lumbar region- Primary Lumbosacral spondylosis without myelopathy Disorder of sacrum Disorders of sacrum Spinal stenosis of lumbar region with neurogenic claudication [facility]* Diagnosis Carcinoid tumor of stomach, unspecified whether malignant- Primary documented in this encounter [facility] Work Phone: Evaluation note* Diagnosis Carcinoid tumor of stomach, unspecified whether malignant- Primary documented in this encounter [facility] Work Phone: Evaluation note* Diagnosis Onset Date Resolution Status GERD (gastroesophageal reflux disease) acute GERD (gastroesophageal reflux disease) [facility] Work Phone: Evaluation note* Diagnosis GERD (gastroesophageal reflux disease)- Primary Esophageal reflux Status post Otf fundoplication Status post Otf fundoplication [facility] Diagnosis Onset Date Resolution Status GERD (gastroesophageal reflux disease) acute Bipolar disorder acute Narcolepsy [facility] Work Phone: Evaluation note* Diagnosis Onset Date Resolution Status Bipolar disorder acute Narcolepsy [facility] Work Phone: Evaluation note* Diagnosis Occipital neuralgia of right side- Primary Right temporomandibular joint disorder, unspecified documented in this encounter [facility] [employer] note* Diagnosis Occipital neuralgia of right side documented in this encounter [facility] [employer] note* Diagnosis Occipital neuralgia of right side documented in this encounter [facility] [employer] note* Diagnosis Occipital neuralgia of right side- Primary Right temporomandibular joint disorder, unspecified documented in this encounter [facility] [employer] note* Diagnosis Spinal stenosis of lumbar region with neurogenic claudication- Primary Lumbosacral spondylosis without myelopathy documented [facility]* Diagnosis Onset Date Resolution Status Bipolar disorder acute Narcolepsy acute Abdominal pain acute Dysphagia acute Nausea & vomiting acute [facility] Work Phone: Evaluation note* Diagnosis ASCUS of cervix with negative high risk HPV Screening for malignant neoplasm of cervix Screening for malignant neoplasm of the cervix Hx of abnormal cervical Pap smear [facility] Diagnosis Onset Date Resolution Status Bipolar disorder acute Narcolepsy acute Abdominal pain acute Dysphagia acute History of Otf fundoplication acute Nausea & vomiting acute [facility] Work Phone: History general Narrative - Reported* Type Description Date Medical History Cervical spondylosis Medical History Degenerative disc disease, cervi magdy Medical History Lumbar spondylosis Medical History Chronic [...] Surgical History R shoulder RC repair - TherOx d Denis 2014 Surgical History Right Wrist Fx repair [...] Hospitalization History Abcess and Cellulitis [place] [facility] [place] [facility] Other Hisxowh general Narrative - Reported* Type Description Date Medical History Cervical spondylosis Medical History Degenerative disc disease, cervi magdy Medical History Lumbar spondylosis Medical History Chronic pain Medical History Right shoulder pain Medical History Left shoulder pain Medical History Neck pain Medical History Numbness and tingling in left ja[place] nd Medical History Obstructive sleep apnea (adult) (pediatric) Medical History Anxiety disorder, unspecified Medical History fibromyalgia Medical History osteoporosis Surgical History R shoulder RC repair - Jameson Denis 2014 Surgical History Right Wrist Fx repair [...] Hospitalization History Abcess and Cellulitis [place] [facility] [place] [facility] Other [employer] general Narrative - ReportedNortGetAutoBids Other Hisbpwy general Narrative - Reported* Type Description Date Medical History Cervical spondylosis Medical History Degenerative disc disease, cervi magdy Medical History Lumbar spondylosis Medical History Chronic [...] History R shoulder RC repair - Jameson Denis 2014 Surgical History Right Wrist Fx repair [...] Hospitalization History Abcess and Cellulitis [place] [facility] [place] [facility] Other Hisyhmj general Narrative - Reported* Type Description Date Medical History Cervical spondylosis Medical History Degenerative disc disease, cervi magdy Medical History Lumbar spondylosis Medical History Chronic [...] History R shoulder RC repair - Jameson Dneis 2014 Surgical History Right Wrist Fx repair [...] Hospitalization History Abcess and Cellulitis Hospital[place] [facility] [place] [facility] Other History of Present illness Narrative* Her [...] answered in detail. * Note dictated with StemCellscommunity engagement representative software, completed without full type editing to [...] integrity, and safety precautions with the orthosis. GZ-Nxtlkrlpxgkh-Nbjxozq[address] DO Work Phone: History of [...] she is in agreement with this plan. OA-Yqhaxsnvnnsl-Hdkjngfs [place] [address] DO Work Phone: History of [...] no concern about memory and no hallucinations. MA-Cjvaquuwb-Vfgdxojz [address] Work Phone: Hospital Discharge instructions [...] 5 to 7 days. Follow-up with your [facility] physician as scheduled.[facility] Work Phone: Hospital Discharge instructions Additional Instructions [facility] Work Phone: Hospital Discharge instructions Additional Instructions Be sure to follow up with orthopedics. You will need a cast.[facility] Work Phone: Instructions* Name Dates Details Instructions not documented [facility] [address] Work Phone: InstructionsNot on filedocumented in this encounter [facility] filedocumented in this encounter [facility]ructionsNot on filedocumented in this encounter [facility] SystemInstructionsNot on filedocumented in this encounter [facility] SystemReason for referral (narrative)* Consultation (Routine) - Pending Review Specialty Diagnoses / Procedures Referred By Contac t Referred To Contact Dental Cattle Manager Diagnoses Right temporomandibular joint disorder, unspecified Procedures CT OFFICE/OUTPATIENT NEW HIGH MDM 60 MINUTES Ronen Raya MD [address] [address] Referral ID Status Reason Start Date Expiration Date Visits Requested Visits Authorized [id number] Pending Review Specialty Services Required 03/18/2024 03/18/2025 1 1 Scheduling Instructions [facility] Address: [address] [place] [address] Right TMJ disorder * Consultation (Routine) - Pending Review Specialty Diagnoses / Procedures Referred By Contac t Referred To Contact Pain Medicine Diagnoses Occipital neuralgia of right side Right temporomandibular joint disorder, unspecified Procedures CT OFFICE/OUTPATIENT NEW HIGH MDM 60 MINUTES Ronen Raya MD [address] [place] [address] Referral ID Status Reason Start Date Expiration Date Visits Requested Visits Authorized [id number] Pending Review Specialty Services Required 03/18/2024 03/18/2025 1 1 Scheduling Instructions Ned Rivas MD Address: [address] [place] [address] Right occipital nerve block * Therapy (Routine) - Pending Review Specialty Diagnoses / Procedures Referred By Contac t Referred To Contact Physical Therapy Diagnoses Occipital neuralgia of right side Right temporomandibular joint disorder, unspecified Procedures CT OFFICE/OUTPATIENT NEW HIGH MDM 60 MINUTES Ronen Raya MD [address] [address] Referral ID Status Reason Start Date Expiration Date Visits Requested Visits Authorized [id number] Pending Review Eval and Treat 03/18/2024 09/14/2024 99 99 Scheduling Instructions [facility] Address: [address] [place] [address] 2 times per week for 8 weeks 1. Occipital neuralgia right 2. Right TMJ arthralgia [facility] Family History No Family History Records Found Mother Name Dates Details Family history of [...] Unknown brother Hypercholesterolemia Unknown sister Hypercholesterolemia Unknown brother Hypertension Unknown father Unknown Malignant neoplasm Unknown grandparent Unknown Not Specified History of ovarian cancer Unknown Unknown sibling Hypertension Unknown sister Hypertension Unknown Relationship Condition Age at Onset Recorded Date/T dario father Malignant neoplasm of brain Unknown Hypertension Unknown Malignant neoplasm Unknown Unknown Not Specified Heart problem Unknown Sepsis Unknown History of ovarian cancer Unknown brother Hypercholesterolemia Unknown sister Hypercholesterolemia Unknown Relationship Condition Age at Onset Recorded Date/T dario father Malignant neoplasm of brain Unknown Unknown Malignant neoplasm Unknown Hypertension Unknown Not Specified Unknown Sepsis Unknown History of ovarian cancer Unknown brother Hypercholesterolemia Unknown sister Hypercholesterolemia Unknown Relationship Condition Age at Onset Recorded Date/T dario father Malignant neoplasm of brain Unknown Unknown Malignant neoplasm Unknown Hypertension Unknown mother Unknown Sepsis Unknown History of ovarian cancer Unknown brother Hypercholesterolemia Unknown sister Hypercholesterolemia Unknown Relationship Condition Age at Onset Recorded Date/T dario father Malignant neoplasm of brain Unknown Unknown Malignant neoplasm Unknown Hypertension Unknown mother Unknown Sepsis Unknown History of ovarian cancer Unknown brother Hypercholesterolemia Unknown sister Hypercholesterolemia Unknown father Malignant neoplasm Unknown Summary Purpose Advance Directives No Advanced Directives Records Found Advance Directive Response Recorded Date/ Time Advance Directives No August 10:51am Advance Directive Response Recorded Date/ Time Advance Directives No August 9:51am Latest Code Status on File Code Status Date Activated Date Inactivated Comments Full Code 02/04/2024 1:38 PM Code Status History Code Status Date Activated Date Inactivated Comments Full Code 02/04/2024 7:56 AM 02/04/2024 1:38 PM Healthcare Agents on File Name Relationship Healthcare Agent Relationship Communication Jasmin Sandoval Friend Primary Decision Maker [email or web address] Chief Complaint Pt here for right knee [...] Pap vomiting Chief Complaint Z12.31 Z13.820 Z78.0 Chief Complaint 3 Month Follow Up//D yspepsia 3 Mo F/U Narcolepsy, Pulm Nodule, Cough Z12.31 Z13.820 Z78.0 Heartburn/Medications Not Working heartburn, dyspepsia heartburn, dyspepsia Reason for Visit GERD (gastroesophage al reflux disease) Chief Complaint Z12.31 Z13.820 Z78.0 Heartburn/Medications Not Working heartburn, dyspepsia heartburn, dyspepsia Amb Documentation Amb Documentation vomiting Reason for Visit GERD (gastroesophage al reflux disease) Chief Complaint Heartburn/Medication s Not Working heartburn, dyspepsia heartburn, dyspepsia Amb Documentation Amb Documentation vomiting F/U Reason for Visit GERD (gastroesophage al reflux disease) GERD (gastroesophageal reflux disease) Chief Complaint Heartburn/Medication s Not Working heartburn, dyspepsia heartburn, dyspepsia Amb Documentation Amb Documentation vomiting F/U S89.91XA Reason for Visit GERD (gastroesophage al reflux disease) GERD (gastroesophageal reflux disease) Chief Complaint heartburn, dyspepsia heartburn, dyspepsia Amb Documentation Amb Documentation vomiting F/U S89.91XA Reason for Visit GERD (gastroesophage al reflux disease) GERD (gastroesophageal reflux disease) Chief Complaint heartburn, dyspepsia heartburn, dyspepsia Amb Documentation Amb Documentation vomiting F/U S89.91XA E78.2 E11.9 N18.30 Gastro Esophageal Reflux Diseae w/out Esophagitis Reason for Visit GERD (gastroesophage al reflux disease) GERD (gastroesophageal reflux disease) Chief Complaint vomiting F/U S89.91XA E78.2 E11.9 N18.30 Gastro Esophageal Reflux Diseae w/out Esophagitis CEA: Narcolepsy, Nodule, Cough Variant Asthma Reason for Visit GERD (gastroesophage al reflux disease) Bipolar disorder Narcolepsy Chief Complaint S89.91XA E78.2 E11.9 N18.30 Gastro Esophageal Reflux Diseae w/out Esophagitis CEA: Narcolepsy, Nodule, Cough Variant Asthma L Hand Injury Reason for Visit Bipolar disorder Narcolepsy Chief Complaint Gastro Esophageal Re flux Diseae w/out Esophagitis Gastro Esophageal Reflux Diseae w/out Esophagitis CEA: Narcolepsy, Nodule, Cough Variant Asthma L Hand Injury Reason for Visit Bipolar disorder Narcolepsy Chief Complaint L Hand Injury occipital neuralgia, tmj L hand CEA: 3 mo f/u Narcolepsy Reason for Visit Bipolar disorder Narcolepsy Chief Complaint CEA: 3 mo f/u Narcol epsy occipital neuralgia, tmj L hand gerd Reason for Visit Bipolar disorder Narcolepsy Abdominal pain Dysphagia Nausea & vomiting Chief Complaint CEA: 3 mo f/u Narcol epsy occipital neuralgia, tmj gerd L hand R10.9 Reason for Visit Bipolar disorder Narcolepsy Abdominal pain Dysphagia History of Otf fundoplication Nausea & vomiting Reason for Referral Specialty Diagnoses / Procedures Referred By Contact Referred To Contact Gastroenterology Diagnoses Carcinoid tumor of stomach, unspecified whether malignant Procedures EGD w EMR CT ESOPHAGOGASTRODUODENOSCOPY TRANSORAL DIAGNOSTIC CT EGD TRANSORAL BIOPSY SINGLE/MULTIPLE Matti Newsome MD [address] [place] [id number] Referral ID Status Reason Start Date Expiration Date V isits Requested Visits Authorized [id number] Authorized 11/24/2023 11/23/2024 1 1 Specialty Diagnoses / Procedures Referred By Contac t Referred To Contact Diagnoses Spinal stenosis of lumbar region with neurogenic claudication Procedures Case request operating room: INJECTION BLOCK EPIDURAL CAUDAL STEROID Huber Ramos PA-C [address] [place] [address] Referral ID Status Reason Start Date Expiration Date V isits Requested Visits Authorized [id number] Pending Review 10/14/2023 10/13/2024 1 1 Specialty Diagnoses / Procedures Referred By Contac t Referred To Contact Diagnoses Lumbar radiculopathy Procedures EMG & nerve conduction Rina Vallejo MD [address] [facility], [address], [facility] [address] [place] [address] Referral ID Status Reason Start Date Expiration Date V isits Requested Visits Authorized [id number] Pending Review 07/21/2023 07/20/2024 1 1 Additional Source Comments INFORMATION SOURCE (unrecogn ized section and content) DATE CREATED AUTHOR 04/01/2020 [facility] DATE CREATED AUTHOR AUTHOR'S ORGANIZ ATION 04/25/2020 [facility] DATE CREATED AUTHOR AUTHOR'S ORGANIZ ATION 10/11/2022 [facility] DATE CREATED AUTHOR AUTHOR'S ORGANIZ ATION 12/09/2022 [facility] DATE CREATED AUTHOR AUTHOR'S ORGANIZ ATION 12/18/2022 [facility] DATE CREATED AUTHOR AUTHOR'S ORGANIZ ATION 05/02/2023 [facility] DATE CREATED AUTHOR AUTHOR'S ORGANIZ ATION 05/14/2023 [facility] DATE CREATED AUTHOR AUTHOR'S ORGANIZ ATION 07/23/2023 [facility] DATE CREATED AUTHOR AUTHOR'S ORGANIZ ATION 09/05/2023 [facility] DATE CREATED AUTHOR AUTHOR'S ORGANIZ ATION 11/12/2023 [facility] DATE CREATED AUTHOR AUTHOR'S ORGANIZ ATION 12/18/2023 [facility] DATE CREATED AUTHOR AUTHOR'S ORGANIZ ATION 02/08/2024 [facility] DATE CREATED AUTHOR AUTHOR'S ORGANIZ ATION 02/20/2024 [facility] DATE CREATED AUTHOR AUTHOR'S ORGANIZ ATION 02/21/2024 [facility] DATE CREATED AUTHOR AUTHOR'S ORGANIZ ATION 03/31/2024 [facility] DATE CREATED AUTHOR AUTHOR'S ORGANIZ ATION 04/25/2024 [facility] DATE CREATED AUTHOR AUTHOR'S ORGANIZ ATION 05/03/2024 [facility] DATE CREATED AUTHOR AUTHOR'S ORGANIZ ATION 05/05/2024 [facility] DATE CREATED AUTHOR AUTHOR'S ORGANIZ ATION 05/12/2024 [facility] DATE CREATED AUTHOR AUTHOR'S ORGANIZ ATION 05/27/2024 [facility] DATE CREATED AUTHOR AUTHOR'S ORGANIZ ATION 06/23/2024 [facility] DATE CREATED AUTHOR AUTHOR'S ORGANIZ ATION 06/25/2024 [facility] DATE CREATED AUTHOR AUTHOR'S ORGANIZ ATION 06/27/2024 [facility] DATE CREATED AUTHOR AUTHOR'S ORGANIZ ATION 07/07/2024 [facility] DATE CREATED AUTHOR AUTHOR'S ORGANIZ ATION 07/15/2024 [facility] DATE CREATED AUTHOR AUTHOR'S ORGANIZ ATION 07/17/2024 [facility] REASON FOR VISIT (unrecogniz ed section and content) Specialty Diagnoses / Procedures [facility] Referred To Contact Diagnoses Lumbar radiculopathy Procedures EMG & nerve conduction Rina Vallejo MD [address] [facility], [facility], [address] [address] Referral ID Status Reason Start Date Expiration Date V isits Requested Visits Authorized [id number] Pending Review 07/21/2023 07/20/2024 1 1 Reason Onset Date Comments Med Refill 09/30/2023 Reason Comments Back Pain Reason Onset Date Comments Med Refill 11/03/2023 Reason Onset Date Comments Med Refill 12/01/2023 Specialty Diagnoses / Procedures Referred By Contact Referred To Contact Gastroenterology Diagnoses Carcinoid tumor of stomach, unspecified whether malignant Procedures EGD w EMR CT ESOPHAGOGASTRODUODENOSCOPY TRANSORAL DIAGNOSTIC CT EGD TRANSORAL BIOPSY SINGLE/MULTIPLE Matti Newsome MD [address] [address] Referral ID Status Reason Start Date Expiration Date V isits Requested Visits Authorized [id number] Authorized 11/24/2023 11/23/2024 1 1 Specialty Diagnoses / Procedures Referred By Contac t Referred To Contact Diagnoses GERD (gastroesophageal reflux disease) GERD (gastroesophageal reflux disease) [K21.9] Procedures CT LAPS SURG ESOPG/GSTR FUNDOPLASTY OTF FUNDOPLICATION LAPAROSCOPIC, phone PAT 02/03/24 Jose Manuel Burgos MD [facility] [address] [address] [facility] [address] [place] [address] Referral ID Status Reason Start Date Expiration Date Visits Re quested Visits Authorized [id number] 1 1 Reason Comments New Patient Headache Reason Onset Date Comments Medication Problem 03/18/2024 Reason Comments Follow-up Reason Comments Back Pain Reason Comments repeat pap Care Teams (unrecognized sec tion and content) Team Status: Active Member Role Status Dates [facility] [facility] Primary Care Provider Active Team Status: Inactive Member Role Status Dates [facility] Primary Care Provider Active Start: November 29, 2023 End: November 29, 2023 Raymond Hector MD Emergency Provider Active Star t: November 29, 2023 End: November 29, 2023 Team Status: Inactive Member Role Status Dates [facility] Primary Care Provider Active Start: December 11, 2023 End: December 11, 2023 Bharat Carreon APRN Attending Provider Active Start: December 11, 2023 End: December 11, 2023 Team Status: Inactive Member Role Status Dates [facility] Primary Care Provider Active Start: December 15, 2023 End: December 15, 2023 Bridgette Mast - FHS , DO Attending Provider Active S tart: December 15, 2023 End: December 15, 2023 Cristian Prasad , DO RES Referring Provider Active Start: December 15, 2023 End: December 15, 2023 Team Status: Inactive Member Role Status Dates Bridgette Mast - FHS , DO Attending Provider Active S tart: December 22, 2023 End: December 22, 2023 Services [facility] Primary Care Provider Active Start: December 22, 2023 End: December 22, 2023 Cristian Prasad DO RES Other Provider Active Sta rt: December 22, 2023 End: December 22, 2023 Team Status: Inactive Member Role Status Dates Services [facility] Primary Care Provider Active Start: January 22, 2024 End: January 22, 2024 Jose Manuel Burgos MD Attending Provider Active Start : January 22, 2024 End: January 22, 2024 Team Status: Inactive Member Role Status Dates Services [facility] Primary Care Provider Active Start: February 09, 2024 End: February 09, 2024 Kevan Hyman MD Attending Provider Active Start: February 09, 2024 End: February 09, 2024 Team Status: Active Member Role Status Dates Services [facility] Primary Care Provider Active Start: October 27, 2023 Matti Newsome MD Attending Provider Active Start: October 27, 2023 Team Status: Inactive Member Role Status Dates Services [facility] Primary Care Provider Active Start: October 27, 2023 End: October 27, 2023 Matti Newsome MD Attending Provider Active Start: October 27, 2023 End: October 27, 2023 Team Status: Active Member Role Status Dates Services [facility] Primary Care Provider Active Start: October 27, 2023 Matti Newsome MD Attending Prov ider, Other Provider Active Start: October 27, 2023 Team Status: Active Member Role Status Dates Services [facility] Primary Care Provider Active Start: November 05, 2023 Jennifer Paz CMA Attending Provider Active St art: November 05, 2023 Team Status: Inactive Member Role Status Dates Services [facility] Primary Care Provider Active Bridgette Pena DO Attending Provider Active Cristian Prasad DO RES Referring Provider Active Team Status: Inactive Member Role Status Dates [facility] Primary Care Provider Active Flako Guaman MD Attending Provider Active Team Status: Inactive Member Role Status Dates Cristian Prasad DO RES Attending Provider Active Team Status: Inactive Member Role Status Dates Services [facility] Primary Care Provider Active Referral Self Attending Provider Active Flako Guaman MD Referring Provider Active Team Status: Inactive Member Role Status Dates Kevan Hyman MD Attending Provider Active Team Status: Inactive Member Role Status Dates Guillermo Rodriguez , DO Attending Provider Active Services [facility] Primary Care Provider Active Team Status: Inactive Member Role Status Dates Services [facility] Primary Care Provider Active rBando Núñez , DO Attending Provider Active Team Status: Inactive Member Role Status Dates Services [facility] Primary Care Provider Active Terrence Ochoa , DO Emergency Provider Active Orchid Worker Relationship Specialty Start Date End Date Pcp, [place] [address] PCP - General Family Medicine 05/27/21 [address] [address] [place] [address] Physician Suit Attendant Family Medicine 01/14/23 Orchid Worker Relationship Specialty Start Date End Date Pcp, [place] [address] PCP - General Family Medicine 05/27/[address] [address] Physician Suit Attendant Family Medicine 01/14/23 Orchid Worker Relationship Specialty Start Date End Date Pcp, [place] [address] PCP - General Family Medicine 05/27/[address] [address] Physician Suit Attendant Family Medicine 01/14/23 Team Status: Inactive Member Role Status Dates Bharat Carreon APRN Attending Provider Active Start: August 04, 2023 End: August 04, 2023 Team Status: Inactive Member Role Status Dates Kevan Hyman MD Attending Provider Active Start: August 26, 2023 End: August 26, 2023 Team Status: Inactive Member Role Status Dates Services [facility] Primary Care Provider Active Start: September 08, 2023 End: September 08, 2023 Flako Guaman MD Attending Provider Active St art: September 08, 2023 End: September 08, 2023 Team Status: Inactive Member Role Status Dates Bharat Carreon APRN Attending Provider Active Start: September 21, 2023 End: September 21, 2023 Orchid Worker Relationship Specialty Start Date End Date Pcp, [place] [address] PCP - General Family Medicine 05/27/[address] [address] Physician Suit Attendant Family Medicine 01/14/23 Orchid Worker Relationship Specialty Start Date End Date Pcp, [place] [address] PCP - General Family Medicine 05/27/21 [facility] [address] [place] [address] Physician Suit Attendant Family Medicine 01/14/23 Orchid Worker Relationship Specialty Start Date End Date Pcp, [place] [address] PCP - General Family Medicine 05/27/21 Cristian Osmar [facility] [place] [address] Physician Suit Attendant Family Medicine 01/14/23 Orchid Worker Relationship Specialty Start Date End Date Matti Newsome MD [address] [place] [id number] Referring Physician Gastroenterology 11/24/23 Orchid Worker Relationship Specialty Start Date End Date Matti Newsome MD [address] [place] [id number] Referring Physician Gastroenterology 11/24/23 Team Status: Inactive Member Role Status Dates Bridgette Whitaker DO Jolene Attending Provider Active S tart: December 22, 2023 End: December 22, 2023 Orchid Worker Relationship Specialty Start Date End Date Young Jones MD [address] [place] [address] PCP - General Family Medicine 12/28/23 Team Status: Inactive Member Role Status Dates Services [facility] Primary Care Provider Active Start: March 11, 2024 End: March 11, 2024 Toy Frances Jr, MD Emergency Provider Active Start: March 11, 2024 End: March 11, 2024 Team Status: Inactive Member Role Status Dates Services [facility] Primary Care Provider Active Start: February 05, 2024 End: February 05, 2024 Jose Maunel Burgos MD Attending Provider Active Start : February 05, 2024 End: February 05, 2024 Team Status: Active Member Role Status Dates Services [facility] Primary Care Provider Active Start: May 13, 2024 Ronen Raya Jr, MD Attending Provider Active S tart: May 13, 2024 Team Status: Active Member Role Status Dates Services [facility] Primary Care Provider Active Start: May 17, 2024 NON STAFF Attending Provider Active Start: Se pt2023 Team Status: Inactive Member Role Status Dates Services [facility] Primary Care Provider Active Start: May 19, 2024 End: May 19, 2024 Kevan Hyman MD Attending Provider Active Start: May 19, 2024 End: May 19, 2024 Orchid Worker Relationship Specialty Start Date End Date Pcp, [place] [address] PCP - General Family Medicine 05/27/21 Cristian Prasad [address] [place], [place] [address] [address] Physician Suit Attendant Family Medicine 01/14/23 Team Status: Active Member Role Status Dates Services [facility] Primary Care Provider Active Start: June 08, 2024 Ronen Raya Jr, MD Attending Provider Active S tart: June 08, 2024 Team Status: Active Member Role Status Dates Services [facility] Primary Care Provider Active Start: June 14, 2024 NON STAFF Attending Provider Active Start: Oc tober 2023 Team Status: Inactive Member Role Status Dates Services [facility] Primary Care Provider Active Start: June 16, 2024 End: June 16, 2024 Bharat Carreon APRN Attending Provider Active Start: June 16, 2024 End: June 16, 2024 Orchid Worker Relationship Specialty Start Date End Date Unallocated, [facility] [place] [address] PCP - General Family Medicine 11/03/23 Orchid Worker Relationship Specialty Start Date End Date Pcp, [place] [address] PCP - General Family Medicine 05/27/21 [place] [address] Physician Suit Attendant Family Medicine 01/14/23 Team Status: Active Member Role Status Dates Services [facility] Primary Care Provider Active Start: June 17, 2024 NON STAFF Attending Provider Active Start: Oc tober 2023 Team Status: Inactive Member Role Status Dates Services [facility] Primary Care Provider Active Start: July 05, 2024 End: July 05, 2024 Bharat Carreon APRN Attending Provider Active Start: July 05, 2024 End: July 05, 2024 Goals (unrecognized section and content) Goals may be documented in a n alternate section Ordered Prescriptions (unrec ognized section and content) Prescription Sig Dispensed Refills Start Date End Da te oxyCODONE (ROXICODONE) 5 MG immediate release tabletIndications:Status post Otf fundoplication Take 1 tablet by mouth every 6 hours as needed for Pain for up to 7 days. Max Daily Amount: 20 mg 25 tablet 0 02/05/2024 02/12/2024 Scheduled Active and Recently Administ ered Medications (unrecognized section and content) Medication Order 02/03/2024 02/04/2024 02/05/2024 budesonide-formoterol (SYMBICORT) 160-4.5 MCG/ACT inhaler 2 puff 2 puff, Inhalation, 2 TIMES DAILY RESP, First dose on Julia 02/04/24 at 2000, Until Discontinued, Substituted for mometasone-formoterol (DULERA). 2124 (Given - Provider: Ildefonso Hill RCP) 704 (Given - Provider: Maddie Colón RCP)1999 (Due) ceFAZolin (ANCEF) 2,000 mg in sodium chloride 0.9 % 100 mL IVPB (mini-bag) (COMPLETED) 2,000 mg, IntraVENous, ASBESTOS COVERER TO O.R., 1 dose, On Julia 02/04/24 at 0815, Antimicrobial Indications: Surgical Prophylaxis, Administer within 1 hour prior to incision. Recommend to repeat in 3-4 hours after initial dose if still intra-op., Pre-op (day of surgery) 0939 (New Bag - Provider: Ector Noel APRN - MEDICAL OFFICER) enoxaparin (LOVENOX) injection 40 mg 40 mg, SubCUTAneous, DAILY, First dose on Thu02/05/24 at 0900, Until Discontinued, Indication of Use: Prophylaxis-DVT/PE, Administer by deep subCUTAneous injection with pt lying down. Alternate injection sites on abdominal wall. Do not rub site after injection. Check with provider prior to any invasive procedure., Post-op 0850 (Given - Provid er: Argenis Martinez RN) famotidine (PEPCID) 20 mg in sodium chloride (PF) 0.9 % 10 mL injection(Linked Group 1) 20 mg, IntraVENous, 2 TIMES DAILY, First dose on Julia 02/04/24 at 1400, Until Discontinued, Administer if oral route cannot be used, Post-op 144 (Given - Provider: Michael Jacobo RN)2025 (Given - Provider: Whitney Kline RN) 0850 (See Alternative - Provider: Argenis Mratinez RN)2100 (Due) famotidine (PEPCID) tablet 20 mg(Linked Group 1) 20 mg, Oral, 2 TIMES DAILY, First dose on Julia 02/04/24 at 1400, Until Discontinued, Post-op 144 (See Alternative - Provider: Michael Jacobo RN)2025 (See Alternative - Provider: Whitney Kline RN) 0850 (Given - Provider: Argenis Martinez RN)2099 (Due) ipratropium (ATROVENT) 0.06 % nasal spray 2 spray 2 spray, Nasal, 2 TIMES DAILY, First dose on Julia 02/04/24 at 2100, Until Discontinued 2100 (Given - Provider: Whitney Kline RN) 0850 (Given - Provider: Argenis Martinez RN)2100 (Due) sodium chloride flush 0.9 % injection 5-40 mL 5-40 mL, IntraVENous, EVERY 12 HOURS SCHEDULED (2 times per day), First dose on Julia 02/04/24 at 2100, Until Discontinued, For Line Patency: Peripheral IV = 5 mL; Midline or Central Line = 10 mL/lumen. If following IV push medication, administer flush at same rate as the IV push. Flush volume is determined by type of infusion therapy being given. For non-viscous solutions use: Peripheral IV = 5 mL Midline or Central Line = 10 mL/lumen For viscous solutions (i.e. blood components, parenteral nutrition, contrast media, or after obtaining blood sample) use: Peripheral IV = 10 mL Midline or Central Line = 20 mL/lumen, Post-op 2027 (Given - Provider: Whitney Kline RN) 0850 (Given - Provider: Argenis Martinez RN)2100 (Due) Continuous Medication Order 02/03/2024 02/04/2024 02/05/2024 dextrose 5 % in lactated ringers infusion (CANCELED) IntraVENous, at 75 mL/hr, CONTINUOUS, Starting on Julia 02/04/24 at 1400, Post-op 1442 (New Bag - Provider: Michael Jacobo, MARIA DEL CARMEN)1833 (Rate/Dose Verify - Provider: Michael Jacobo RN) 0358 (Stopped - Provider: Whitney Kline, RN)0359 (New Bag - Provider: Whitney Kline, RN)0552 (Stopped - Provider: Whitney Kline RN) lactated ringers IV soln infusion (CANCELED) IntraVENous, at 100 mL/hr, CONTINUOUS, Starting on Julia 02/04/24 at 0900, Pre-op (day of surgery) 0925 (New Bag - Provider: Raymond Vaca RN)0932 (NoRateChange - Provider: GAVIN Garcia CRNA)1059 (Paused - Provider: GAVIN Garcia CRNA - Comment: Switch to gravity)1100 (New Bag - Provider: GAVIN Garcia CRNA)1105 (Anesthesia Volume Adjustment - Provider: GAVIN Garcia CRNA) PRN Medication Order 02/03/2024 02/04/2024 02/05/2024 0.9 % sodium chloride infusion IntraVENous, at 5-250 mL/hr, PRN, if patient receiving piggyback infusions and maintenance fluids are not ordered OR KVO fluids to protect IV site / prevent frequent line interruptions/ long duration, Starting on Julia 02/04/24 at 1123, For piggyback infusion, administer at same rate as piggyback for a total of 25 mL. Enter 25 mL into dose field and piggyback rate into rate field of order. If piggyback is infusing at a rate less than 100 mL/hr, enter 25 mL into dose field and 100 mL/hr into rate field of order. For KVO fluids, enter rate of 20 mL/hr or less into rate field of order., Post-op acetaminophen (TYLENOL) suppository 650 mg 650 mg, Rectal, EVERY 4 HOURS PRN, Starting on Julia 02/04/24 at 1338, Until Discontinued, Other, Pain (1-10), Give in addition to any other pain medication ordered at same time for any pain indication., Post-op albuterol sulfate HFA (PROVENTIL;VENTOLIN;PROAIR) 108 (90 Base) MCG/ACT inhaler 2 puff 2 puff, Inhalation, EVERY 4 HOURS PRN, Starting on Julia 02/04/24 at 1346, Until Discontinued, Shortness of Breath, Wheezing, Initiate RT Bronchodilator Protocol: Yes - Inpatient Protocol HYDROmorphone (DILAUDID) injection 0.2 mg (CANCELED) 0.2 mg, IntraVENous, EVERY 2 HOURS PRN, Starting on Julia 02/04/24 at 1354, Until Julia 02/04/24 at 2223, Pain Moderate (4-6) 1446 (Given - Provider: Michael Jacobo RN - Comment: Waste with pedro luis JOYCE)1850 (Given - Provider: Michael Jacobo RN - Comment: ruth with cricket JOYCE)3 (Given - Provider: Whitney Kline RN) HYDROmorphone (DILAUDID) injection 0.5 mg (CANCELED) 0.5 mg, IntraVENous, EVERY 5 MIN PRN, 2 doses, Starting on Julia 02/04/24 at 1102, Until Julia 02/04/24 at 1335, Pain Severe (7-10), For Phase I. If Phase II oral narcotics have been administered in the last 60 minutes, do not administer IV narcotics unless specifically approved by provider., PACU only 1131 (Given - Provider: Eugene Muse RN) HYDROmorphone (DILAUDID) injection 0.5 mg 0.5 mg, IntraVENous, EVERY 2 HOURS PRN, Starting on Julia 02/04/24 at 2223, Until Discontinued, Pain Moderate (4-6) 2253 (Given - Provider: Whitney Kline RN) 0111 (Given - Provider: Whitney Kline, RN)0353 (Given - Provider: Whitney Kline RN)0553 (Given - Provider: Whitney Kline RN)0850 (Given - Provider: Argenis Martinez RN) magnesium sulfate 2000 mg in 50 mL IVPB premix 2,000 mg, IntraVENous, at 25 mL/hr, Administer over 2 Hours, PRN, Other, Magnesium Replacement, Starting on Julia 02/04/24 at 1338, Mag Lab Replacement Action 1.4-1.6 mg/dL 2,000 mg Total Dose Given as 1,000 mg IVPB x 2 doses or 2,000 mg IVPB x 1 dose 1.0-1.3 mg/dL 4,000 mg Total Dose Given as 1,000 mg IVPB x 4 doses or 2,000 mg IVPB x 2 doses Less than 1.0 mg/dL CALL PHYSICIAN and give 4,000 mg Total Dose Given as 1,000 mg IVPB x 4 doses or 2,000 mg IVPB x 2 doses Infuse at 1,000 mg/hr Repeat Mag level 1 hour after final administration Protocol not for use in Patients with CrCl less than 30ml/min, Post-op ondansetron (ZOFRAN) injection 4 mg(Linked Group 2) 4 mg, IntraVENous, EVERY 6 HOURS PRN, Starting on Thu02/04/24 at 1338, Until Discontinued, Nausea, Vomiting, Administer if oral route cannot be used., Post-op ondansetron (ZOFRAN-ODT) disintegrating tablet 4 mg(Linked Group 2) 4 mg, Oral, EVERY 8 HOURS PRN, Starting on Thu02/04/24 at 1338, Until Discontinued, Nausea, Vomiting, Post-op oxyCODONE (ROXICODONE) immediate release tablet 5 mg 5 mg, Oral, EVERY 4 HOURS PRN, Starting on Thu02/05/24 at 0530, Until Discontinued, Pain Moderate (4-6) 1403 (Given - Provid er: Casie Block RN) potassium chloride 10 mEq/100 mL IVPB (Peripheral Line) 10 mEq, IntraVENous, PRN, Starting on Thu02/04/24 at 1338, Until Discontinued, at 100 mL/hr, Potassium Replacement, K Lab Replacement Action 3.1-3.5 10 mEq IVPB x 4 doses (40 mEq Total) 2.7-3.0 10 mEq IVPB x 6 doses (60 mEq Total) < 2.7 CALL PHYSICIAN and 10 mEq IVPB x 6 doses (60 mEq Total) Infuse at 10 mEq/hr. Repeat Potassium lab 1 hour after final administration. Not for use in patients with CrCl less than 30 mL/min., Post-op sod chloride IRR soln 0.9 % irrigation (CANCELED) CONTINUOUS PRN, Starting on Julia 5/23/24 at 0907, Intra-op 0950 (New Bag - Provider: Jose Manuel Burgos MD - Comment: PRN on sterile field) sodium chloride flush 0.9 % injection 5-40 mL 5-40 mL, IntraVENous, PRN, Starting on Julia 02/04/24 at 1338, Until Discontinued, Line Care, After every IV line use, For Line Patency: Peripheral IV = 5 mL; Midline or Central Line = 10 mL/lumen. If following IV push medication, administer flush at same rate as the IV push. Flush volume is determined by type of infusion therapy being given. For non-viscous solutions use: Peripheral IV = 5 mL Midline or Central Line = 10 mL/lumen For viscous solutions (i.e. blood components, parenteral nutrition, contrast media, or after obtaining blood sample) use: Peripheral IV = 10 mL Midline or Central Line = 20 mL/lumen, Post-op Linked Groups Order Group 1: famotidine (PEPCID) tablet 20 mgJump to med 20 mg, Oral, 2 TIMES DAILY, First dose on Julia 02/04/24 at 1400, Until Discontinued, Post-op Or famotidine (PEPCID) 20 mg in sodium chloride (PF) 0.9 % 10 mL injectionJump to med 20 mg, IntraVENous, 2 TIMES DAILY, First dose on Julia 02/04/24 at 1400, Until Discontinued
Administer if oral route cannot be used
Post-op Group 2: ondansetron (ZOFRAN-ODT) disintegrating tablet 4 mgJump to med 4 mg, Oral, EVERY 8 HOURS PRN, Starting on Julia 02/04/24 at 1338, Until Discontinued, Nausea, Vomiting, Post-op Or ondansetron (ZOFRAN) injection 4 mgJump to med 4 mg, IntraVENous, EVERY 6 HOURS PRN, Starting on Julia 02/04/24 at 1338, Until Discontinued, Nausea, Vomiting
Administer if oral route cannot be used.
Post-op FOR RECORDS PERTAINING TO PATIENTS WHO ARE [...] BE BASED ON THE PRIMARY CLINICAL RECORDS. [facility] [employer] [facility]. provides no warranty or guarantee of the accuracy or completeness of information in this document.
[2024-07-18 06:39] LABS: Glucometer 113 mg/dL (74-106)
[2024-07-18] MEDS: LACTATED RINGER'S SOLUTION 1,000 ML 50 ML IV (07:04)
[2024-07-18] MEDS: VANCOMYCIN HCL 1,250 MG in 0.9 % SODIUM CHLORIDE 250 ML 166.667 MG IV (07:24)
--- NOTE | 2024-07-18 07:54 | P.ORON_ITS ---
Brief Operative Note Date of procedure: 07/18/24 Pre-op diagnosis general: Right second and third hammertoe contractures with p redislocation syndrome of second metatarsal phalangeal joint Post-op diagnosis: same as pre-op Procedure: Procedures performed: Right second metatarsal osteotomy with correction of second and third hammertoes Indications for procedure: Patient is a 59-year-old female who has had persistent pain associated with her second and third toes which have become more contracted and she has had difficulty finding comfortable shoes. She does have a complicated medical history with peripheral vascular disease (noninvasive vascular studies were obtained preoperatively and values were amenable for good healing potential), fibromyalgia and peripheral neuropathy. I related to the patient that some of her pain may be secondary to neuropathy and fibromyalgia but given her pain is worse with shoes and prolonged activity as well as obvious contractures of the second third toes her pain is in part do to the deformities. I did educate her on pain control after which may be difficult given her numerous allergies. Despite nonsurgical treatment with shoe modification and toe braces and splints patient wished to undergo the above procedures. Intraoperative findings: Sagittal plane contractures at the PIPJ of second and third toes with dorsiflexion contracture at the second metatarsal phalangeal joint. Bone quality was poor and consistent with osteopenia/osteoporosis. Procedure in detail: Patient was identified in preoperative holding by myself which time correct side and site were marked and consent was obtained. Preoperative antibiotics were started and patient is brought back in the operating theater placed on table in supine position with a thigh tourniquet. Right lower extremity was prepped and draped in usual sterile fashion and formal timeout was performed. Local anesthesia utilizing 10 cc of 1% lidocaine plain and 10 cc of half percent Marcaine plain were injected as standard digital blocks. The operative extremi ty was exsanguinated and the tourniquet was inflated. A dorsal incision over the 2nd digit and extended over the 2nd metatarsal was undertaken. The extensor tendon was incised transversely and reflected approximately. Then sharp and blunt dissection gained access to the proximal phalanx head which was exposed and then removed with the sagittal saw. The extensor tendon was protected throughout the procedure and sharp and blunt dissection exposed the 2nd metatarsal phalangeal joint. A McGlammry elevator was utilized to expose the 2nd metatarsal head and a sagittal saw was used to create an osteotomy parallel to the weightbearing surface of the foot. The metatarsal head was then translated proximally and temporarily fixated with a K wire and the elevator was removed. Position was checked under fluoroscopy followed by a 2.0 mm snap off screw which was placed from a dorsal plantar direction. A rongeur was used to remove the dorsal cortical shelf. Temporary fixation was removed. Surgical site was irrigated with copious amounts of sterile saline. Then a longitudinal incision was placed over the dorsal aspect of the third PIPJ. Combination of sharp and blunt dissection gained access to the extensor tendon which was transversely incised and carefully reflected proximally exposing the proximal phalanx head. The proximal phalanx head was then removed using a sagittal saw and passed the back table. The extensor tendons were then repaired on both toes noting correction of the patient's deformity. Surgical site was irrigated with copious saline and the tourniquet was deflated. In cisions were then closed in layers. A dry sterile dressing and a surgical shoe were then applied. Patient tolerated the procedure and anesthesia well was transferred to the recovery room with vital signs stable and brisk capillary refill to the right toes. Postoperative plan: Discharge home under family/friend's care Partial protected weightbearing to the right heel with surgical shoe and use of a cane May leave surgical dressing in place for up to 3 days but should change daily after that with dry gauze and David wrap. No soaking or submerging Ice and elevation Follow-up in 1 week for incision check Implants: Medline 2.0 mm snap off screw Anesthesia: General-LMA Surgeon: Mirza Allison Estimated blood loss (mL): 10 Tourniquet time (min): 19 Pathology: none sent Condition: stable Disposition: PACU
--- NOTE | 2024-07-18 08:00 | XR_ITS ---
The [address] [address] Patient Name: PRAFUL JUNIOR MRN: [id number] date: 1965 Sex: F Assigned Patient Location: [facility] Current Patient Location: Accession/Order Number: [id number] Exam Date: 07/18/2024 09:15 Report Date: 07/19/2024 10:17 At the request of: MARGARET CARDENAS Procedure: XR foot RT min 3V PROCEDURE: XR foot RT min 3V COMPARISON: 06/07/2024 HISTORY: hammertoe FINDINGS: BONES:Fracture mid diaphysis of the second metatarsal with 5 mm of dorsal displacement of the distal fracture fragment. Postsurgical changes with screws first second and fifth metatarsals. Remote resection head of the second and third metatarsals SOFT TISSUES:Postprocedural air and swelling EFFUSION:None visible. OTHER: Negative. XR/XR foot RT min 3V IMPRESSION: Fracture mid diaphysis of the second metatarsal, favor subacute fracture over osteotomy Resection head of the second and third proximal phalanges Electronically authenticated by: JALEEL EAST Date: 07/19/2024 10:17
[2024-07-18] MEDS: BUPIVACAINE HCL 0.5% PF 50 MG/10 ML VIAL INJ (08:12)
[2024-07-18] MEDS: LIDOCAINE HCL 1% 100 MG/10 ML MDV INJ (08:12)
[2024-07-18 09:06] LABS: Glucometer 120 mg/dL (74-106)
== END 2024-07-18 10:10 | disposition home or self-care (01) ==
PROVIDERS: Visit Provider Podiatrist Foot & Ankle Surgery
PROC: (CPT 1480; principal; 2024-07-18 07:30)
DX: M20.41 Other hammer toe(s) (acquired), right foot (principal); M79.7 Fibromyalgia; M25.871 Other specified joint disorders, right ankle and foot; Z90.49 Acquired absence of other specified parts of digestive tract; Z98.51 Tubal ligation status; F17.210 Nicotine dependence, cigarettes, uncomplicated; I73.9 Peripheral vascular disease, unspecified; J44.9 Chronic obstructive pulmonary disease, unspecified; Z90.710 Acquired absence of both cervix and uterus; G47.33 Obstructive sleep apnea (adult) (pediatric); I10 Essential (primary) hypertension; E78.5 Hyperlipidemia, unspecified
CPT/HCPCS: 28285 ×2; 28308; 36415; 73630; 82948; C1713; J0665; J2250; J2704; J3010; J3370

== ENCOUNTER 2024-08-03 14:16 | Outpatient (OUT) | payer OTHER, SELFPAY ==
--- NOTE | 2024-08-04 | XR_ITS ---
The [address] [address] Patient Name: PRAFUL JUNIOR MRN: [id number] date: 1965 Sex: F Assigned Patient Location: [facility] Current Patient Location: [facility] Accession/Order Number: [id number] Exam Date: 08/04/2024 13:17 Report Date: 08/05/2024 15:20 At the request of: ELSA BOSCH Procedure: XR foot RT min 3V PROCEDURE: XR foot RT min 3V HISTORY: RIGHT FOOT PAIN COMPARISON: XR foot right 07/18/2024 FINDINGS: BONES:Exuberant callus formation surrounding the second metatarsal fracture. Stable surgical screws within first, second, and 5th metatarsals. Prior resection of the head of the second proximal phalanx., SOFT TISSUES:No visible soft tissue swelling. EFFUSION:None visible. OTHER: Negative. XR/XR foot RT min 3V IMPRESSION: 1. Stable normal alignment of the subacute second metatarsal fracture with evidence of early bone healing. Electronically authenticated by: VITA MCCOY Date: 08/05/2024 15:20
== END 2024-08-04 14:17 | disposition home or self-care (01) ==
PROVIDERS: Visit Provider Physician Assistant
DX: M79.671 Pain in right foot (principal); S92.324D Nondisplaced fracture of second metatarsal bone, right foot, subsequent encounter for fracture with routine healing
CPT/HCPCS: 73630

== ENCOUNTER 2024-08-17 13:47 | Outpatient (OUT) | payer OTHER, SELFPAY ==
--- NOTE | 2024-08-17 | XR_ITS ---
The [address] [address] Patient Name: PRAFUL JUNIOR MRN: [id number] date: 1965 Sex: F Assigned Patient Location: [facility] Current Patient Location: Accession/Order Number: [id number] Exam Date: 08/17/2024 14:00 Report Date: 08/18/2024 07:19 At the request of: MARGARET CARDENAS Procedure: XR foot RT min 3V PROCEDURE: XR foot RT min 3V COMPARISON: 08/04/2024 HISTORY: RIGHT FOOT PAIN FINDINGS: BONES:Stable healing fracture of the second metatarsal with increased callus formation and bony bridging. Remote surgery and screw placement first, second and fifth metatarsals. No new fracture or dislocation. Remote resection head of the second proximal phalanx SOFT TISSUES:Negative. No visible soft tissue swelling. EFFUSION:None visible. OTHER: Negative. XR/XR foot RT min 3V IMPRESSION: Stable healing second metatarsal fracture Electronically authenticated by: JALEEL EAST Date: 08/18/2024 07:19
== END 2024-08-17 13:48 | disposition home or self-care (01) ==
LOC: RAD 13:47
PROVIDERS: Visit Provider Podiatrist Foot & Ankle Surgery
DX: M79.671 Pain in right foot (principal); S92.324D Nondisplaced fracture of second metatarsal bone, right foot, subsequent encounter for fracture with routine healing
CPT/HCPCS: 73630

== ENCOUNTER 2024-08-31 14:03 | Outpatient (OUT) | payer OTHER, SELFPAY ==
--- NOTE | 2024-08-31 | XR_ITS ---
The [address] [address] Patient Name: PRAFUL JUNIOR MRN: [id number] date: 1965 Sex: F Assigned Patient Location: [facility] Current Patient Location: Accession/Order Number: [id number] Exam Date: 08/31/2024 14:08 Report Date: 09/01/2024 06:35 At the request of: MARGARET CARDENAS Procedure: XR foot RT min 3V PROCEDURE: XR foot RT min 3V HISTORY: RIGHT FOOT PAIN COMPARISON: XR foot right 08/17/2024 FINDINGS: BONES:Exuberant callus formation surrounding second metatarsal diaphyseal fracture. Stable screws within first, second, and 5th metatarsals. Resection of distal articular surface of the second toe proximal phalanx. SOFT TISSUES:No visible soft tissue swelling. EFFUSION:None visible. OTHER: Negative. XR/XR foot RT min 3V IMPRESSION: 1. Stable alignment and increasing callus formation surrounding the second metatarsal fracture concerning for movement/pseudoarticulation. 2. Stable surgical changes. Electronically authenticated by: VITA MCCOY Date: 09/01/2024 06:35
== END 2024-08-31 14:04 | disposition home or self-care (01) ==
LOC: RAD 14:04
PROVIDERS: Visit Provider Podiatrist Foot & Ankle Surgery
DX: S92.501D Displaced unspecified fracture of right lesser toe(s), subsequent encounter for fracture with routine healing (principal)
CPT/HCPCS: 73630

== ENCOUNTER 2024-09-28 12:59 | Outpatient (OUT) | payer OTHER, SELFPAY ==
--- NOTE | 2024-09-28 | XR_ITS ---
The [address] [address] Patient Name: PRAFUL JUNIOR MRN: [id number] date: 1965 Sex: F Assigned Patient Location: [facility] Current Patient Location: Accession/Order Number: [id number] Exam Date: 09/28/2024 13:05 Report Date: 09/29/2024 07:31 At the request of: MARGARET CARDENAS Procedure: XR foot RT min 3V PROCEDURE: XR foot RT min 3V COMPARISON: 08/31/2024 HISTORY: RIGHT FOOT PAIN FINDINGS: BONES:Stable healing extra-articular fracture mid diaphysis of the second metatarsal with increase in bone formation and partial bony bridging. Stable postsurgical changes and screws first second and fifth metatarsals. Remote resection head of the second and third proximal phalanges. SOFT TISSUES:Negative. No visible soft tissue swelling. EFFUSION:None visible. OTHER: Negative. XR/XR foot RT min 3V IMPRESSION: Stable healing second metatarsal fracture Electronically authenticated by: JALEEL EAST Date: 09/29/2024 07:31
== END 2024-09-28 13:00 | disposition home or self-care (01) ==
LOC: RAD 13:00
PROVIDERS: Visit Provider Podiatrist Foot & Ankle Surgery
DX: M79.671 Pain in right foot (principal); S92.324D Nondisplaced fracture of second metatarsal bone, right foot, subsequent encounter for fracture with routine healing
CPT/HCPCS: 73630